=== PATIENT | male | born 1965 | race Caucasian/White ===

== ENCOUNTER 2018-09-04 14:11 | Emergency (ER) | payer SELFPAY ==
[2018-09-04 14:11] VITALS: BP 140/80; PULSE 106; RESP 16; TEMP 36.7; O2SAT 94; BMI 21.3
[2018-09-04] MEDS: Diphth,Pertuss(Acell),Tet Vac 0.5 ML Vial IM (14:45)
--- NOTE | 2018-09-04 15:14 | ED.VIS.GEN ---
History of Present Illness Informant: Patient Onset: Today Context: Sudden Onset Timing: Continuous Quality: Sharp Location: Left upper back Current Severity: Mild Maximum Severity: Mild Worsened by: Palpation Relieved by: Rest Associated Symptoms: Denies Narrative: 52-year-old male presents with laceration to his left upper back that occurred just prior to arrival. He was walking at home and a light bulb fell out of the ceiling while he was walking up the basement steps lacerated his left upper back. Prior similar symptoms: No Recent Illness/Hospitalization: No <Garrison Beth - Last Filed: 09/04/18 15:14> <Billy Louis - Last Filed: 09/04/18 15:27> Chief Complaint: Laceration Past Medical History Prior records reviewed: Yes Past Medical History: None Surgical History: no surgical history Smoking Status: Current every day smoker <Garrison Beth - Last Filed: 09/04/18 15:14> <Billy Louis - Last Filed: 09/04/18 15:27> - Allergies and Home Meds Allergies/Adverse Reactions: Allergies Penicillins Allergy (Verified 09/04/18 14:12) Hives Primary Care Physician: Romie López MD [Primary Care Provider] - Review of Systems All systems negative except as indicated Skin: Reports: Wounds <Garrison Beth - Last Filed: 09/04/18 15:14> Physical Exam Vital Signs/Narrative: Vital Signs Temp Pulse Resp BP Pulse Ox 09/04/18 14:11 98.1 F 106 H 16 140/80 H 94 Inital Vital Signs reviewed: Yes General: Well nourished, Well developed, No Acute Distress Head: Normocephalic, Atraumatic Eyes: Perrl, EOMI ENT: Moist mucous membranes Neck: Supple, Nontender Cardiovascular: Regular rate, Regular rhythm, No murmurs Respiratory: No distress, CTA bilaterally, Chest nontender Back: Nontender, - - 5 cm laceration left upper back lateral to spinal column. Extremities: Nontender, No edema Skin: Normal color, No rash, Trauma Neurological: Alert, Oriented x3 <Garrison Beth - Last Filed: 09/04/18 15:14> Vital Signs/Narrative: Vital Signs Temp Pulse Resp BP Pulse Ox 09/04/18 14:11 98.1 F 106 H 16 140/80 H 94 <Billy Louis - Last Filed: 09/04/18 15:27> Diagnostic/Tx/Re-eval - Medical Decision Making Tetanus was updated. Laceration was anesthetized, thoroughly irrigated cleansed no foreign bodies were seen it was then sutured closed and dressing was placed. We discussed proper wound care and signs of infection to monitor for. Patient will be discharged and advised to follow-up in 7 to 10 days for suture removal. <Garrison Beth - Last Filed: 09/04/18 15:14> - Medical Decision Making Treated patient with our physician physical laboratory assistant EP. Left posterior shoulder laceration caused by a light bulb. Vital signs stable afebrile. Left posterior shoulder there is a 3 to 4 cm laceration is linear. Irrigated clean and explored by our physician physical laboratory assistant. Closed using simple interrupted suture x4. Proper hemostasis wound closure obtained. Impression: Left posterior shoulder laceration with ER repair approximately 5 cm <HeribertoBilly - Last Filed: 09/04/18 15:27> Procedures - Lacerations No standard instances Depth: Skin Shape: Linear Prep: Sterile Conditions, Chlorhexadine Laceration repair: Irrigated, Lidocaine with epi, Local, Wound explored Irrigated (ml): 120 Number of Sutures/[place]: 4 Suture Information: Ethilon, Simple, 4-0 <Garrison Beth - Last Filed: 09/04/18 15:14> ED Disposition <Garrison Beth - Last Filed: 09/04/18 15:14> <HeribertoBilly - Last Filed: 09/04/18 15:27> - Plan for ED Patient: Disposition: Home or Assisted Living Diagnosis: Laceration of back Instructions: LACERATION, Trunk Referrals: Romie López MD [Primary Care Provider] -
== END 2018-09-04 15:38 | disposition home or self-care (01) ==
PROVIDERS: Emergency Provider Emergency Medicine; Family Provider Family Medicine; PCP Family Medicine
DX: S21.212A Laceration without foreign body of left back wall of thorax without penetration into thoracic cavity, initial encounter (principal); W20.8XXA Other cause of strike by thrown, projected or falling object, initial encounter; Y93.01 Activity, walking, marching and hiking; Y92.098 Other place in other non-institutional residence as the place of occurrence of the external cause; Y99.9 Unspecified external cause status; F17.200 Nicotine dependence, unspecified, uncomplicated; Z88.0 Allergy status to penicillin
CPT/HCPCS: 12002; 90471; 90715; 99283

== ENCOUNTER 2018-09-12 08:11 | Emergency (ER) | payer SELFPAY ==
[2018-09-12 08:12] VITALS: BP 126/88; PULSE 99; RESP 16; TEMP 36.2; O2SAT 98; BMI 29.5
--- NOTE | 2018-09-12 08:26 | ED.VISSUMM ---
- ER Visit Summary Date of Service: 09/12/18 Chief Complaint: [Request for suture removal] History of Present Illness: The patient is a 52 M [presents to the emergency department asking to have the sutures removed from a laceration that he sustained about 8 days ago. Patient states that he accidentally brushed with his back against a broken bulb on the ceiling when he was going up some steps and sustained a laceration. Patient was seen in this emergency department and had 4 sutures placed. Patient was told to have sutures removed in 1 week. Patient denies any complaint of bleeding or infection. Patient up-to-date on tetanus which he received during his last visit.] Physical Examination: [HEENT-PERRLA, EOMI. Cranial nerves II through XII grossly intact. TMs clear. Mucous membranes moist. No adenopathy. Cardiovascular-regular rate and rhythm without murmur or ectopy Lungs-clear to auscultation, chest wall stable without crepitus or subcu emphysema Abdomen-normoactive bowel sounds, soft, nontender, no rebound or rigidity, no peritoneal signs. Back exam-patient has a 2.5 cm laceration over the left upper back that appears to be well-healed with 4 single interrupted sutures noted. There is no evidence for dehiscence on exam and there was no evidence of infection or bleeding. Extremities-intact ?4, normal range of motion, normal pulses, atraumatic] Test Results: [None indicated] Emergency Department Course and Treatment: [Patient had sutures removed without difficulty. Upon removal of the more medial of the 4 sutures there was a small area of persistent scab and clot which then had a small area of dehiscence noted of about 5 mm upon removal of the last suture. No significant bleeding noted.] Treatment Plan: [Patient advised to clean the wound gently with soap and water. Patient advised that the dehisced portion will heal by secondary intention. Patient advised to return if increasing pain, redness, swelling, persistent bleeding, or conditions worsen anyway.] Disposition: [Discharged home in stable condition.] Impression: [Suture removal from 2.5 cm back laceration without evidence of infection or bleeding.] This note was generated with [employer] dictation software. It may contain incorrect words, spelling, and punctuation that were not noted in review of the chart prior to signing ED Disposition - Plan for ED Patient: Referrals: Romie López MD [Primary Care Provider] -
--- NOTE | 2018-09-12 08:30 | ED.DEP ---
ED Disposition - Plan for ED Patient: Instructions: SUTURE REMOVAL, No Complication Referrals: Romie López MD [Primary Care Provider] - 5-7 Days
[2018-09-12 08:35] VITALS: BP 126/88; PULSE 99; RESP 18
== END 2018-09-12 08:35 | disposition home or self-care (01) ==
LOC: ED 08:33
PROVIDERS: Emergency Provider Emergency Medicine; Family Provider Family Medicine; PCP Family Medicine
DX: Z48.02 Encounter for removal of sutures (principal); Z72.0 Tobacco use
CPT/HCPCS: 99282

== ENCOUNTER 2019-10-21 18:19 | Emergency (ER) | payer MEDICAID, SELFPAY ==
[2019-10-21 18:20] VITALS: BP 150/101; PULSE 95; RESP 16; TEMP 36.7; O2SAT 98; BMI 21.7
--- NOTE | 2019-10-21 18:32 | ED.VIS.GEN ---
History of Present Illness Chief Complaint: Sore Throat Informant: Patient Onset: Today Maximum Severity: Mild Narrative: Some throat pain after eating a hot sausage from a crockpot The patient was cooking sausage and a crockpot he took a piece of sausage other crockpot it had a high temperature he apparently did not chew it but rather just swallowed it and when he did he felt some pain in his throat this occurred about an hour ago, he has a sense of discomfort to the throat but no stridor or drooling or difficult the speaking, he is able to swallow eat and drink he presents for evaluation he indicates it was just that this was food that was much hotter than he appreciated he was not ill before he has no throat issues there was no history or reason to be concerned for infection as he was perfectly fine before he tried to eat this food Past Medical History - Allergies and Home Meds Allergies/Adverse Reactions: Allergies Penicillins Allergy (Verified 10/21/19 18:24) Hives Primary Care Physician: Romie López MD [Primary Care Provider] - Past Medical History: None Surgical History: no surgical history Smoking Status: Current every day smoker Review of Systems General: Denies: Chills, Fever, Sweats Eyes: Denies: Visual changes - bilaterally, Diplopia ENT: Reports: Sore throat. Denies: Rhinorrhea Cardiovascular: Denies: Chest pain, Palpitations Respiratory: Denies: Dyspnea, Cough, Dyspnea on exertion Gastrointestinal: Denies: Abdominal pain, Nausea, Vomiting, Diarrhea, Melena, Hematochezia Genitourinary: Denies: Dysuria, Hematuria, Frequency Musculoskeletal: Denies: Back pain, Extremity Pain Skin: Denies: Rash, Wounds Neurological: Denies: Headache, Weakness, Numbness Physical Exam Vital Signs/Narrative: Vital Signs Temp Pulse Resp BP Pulse Ox 10/21/19 18:20 98.1 F 95 16 150/101 H 98 General: Well nourished, Well developed, No Acute Distress Head: Normocephalic, Atraumatic Eyes: Perrl, EOMI ENT: Moist mucous membranes, No rhinorrhea, - - His uvula is slightly edematous but his airway is completely intact there is no blistering no signs of burn his tongue mucosal tissue unremarkable speech is normal neck is supple the rest of his exam is entirely unremarkable he is in no distress vital signs are normal Neck: Supple, Nontender Cardiovascular: Regular rate, Regular rhythm, No murmurs Respiratory: No distress, CTA bilaterally, Chest nontender Abdomen: Soft, Nontender, Nondistended, Normal bowel sounds Back: Nontender, Normal Inspection Extremities: Nontender, No edema Skin: Normal color, No rash Neurological: Alert, Oriented x3, Cranial nerves II-XII grossly intact, Normal Strength, Normal Sensation Psychological: Normal affect, Normal Mood Diagnostic/Tx/Re-eval - Medical Decision Making Occurred about an hour ago we observe the patient he was given viscous lidocaine to swish and gargle he is feeling better at this time will be discharged home to continue cold liquids ice cream soft foods and follow-up with his physicians the next few days Final impression throat discomfort after eating hot food uvular edema mild Home stable ED Disposition - Plan for ED Patient: Diagnosis: Uvular edema Instructions: ED Uvulitis Referrals: Romie López MD [Primary Care Provider] - Additional Instructions: Avoid hot food, ice ice cream cold liquids return for change in symptoms
== END 2019-10-21 19:00 | disposition home or self-care (01) ==
LOC: ED 18:54
PROVIDERS: Emergency Provider Emergency Medicine; PCP Family Medicine
DX: K12.2 Cellulitis and abscess of mouth (principal); F17.200 Nicotine dependence, unspecified, uncomplicated; Z88.0 Allergy status to penicillin
CPT/HCPCS: 99283

== ENCOUNTER 2019-10-21 22:45 | Emergency (ER) | payer MEDICAID, SELFPAY ==
[2019-10-21 18:20] VITALS: BMI 21.7
[2019-10-21 22:46] VITALS: BP 159/102; PULSE 109; RESP 18; TEMP 36.3; O2SAT 97; BMI 21.5
--- NOTE | 2019-10-21 23:09 | RAD_ITS ---
HISTORY: Swallowed hot food which caused pain to throat. Vomiting and cough. COMPARISON: None TECHNIQUE: AP and lateral soft tissue neck radiographs Number of images including paperwork: 2 FINDINGS: EPIGLOTTIS AND ARYEPIGLOTTIC FOLDS: Unremarkable. AIRWAY: Unremarkable. PREVERTEBRAL SOFT TISSUES: No significant prevertebral soft tissue thickening. No distinct foreign body. BONES: No acute skeletal abnormality. RAD/Neck for Soft Tissue IMPRESSION: No acute findings. at 2355 Reported and signed by: Yesenia Peralta MD Electronically Signed: Yesenia Peralta MD at 23:55 EDT Tel , Service support ,
[2019-10-21] MEDS: Glucagon 1 MG/ML Syringe IV (23:22)
[2019-10-21 23:26] LABS: Absolute Lymphocyte Count 1.68 X10^3/uL (0.83-4.51); Absolute Neutrophil Count 15.7 X10^3/uL (2.0-7.7); Basophil# 0.06 X10^3/uL; Basophil% 0.3 % (0-1); Eosinophil# 0.11 X10^3/uL; Eosinophils% 0.6 % (0-5); Hematocrit 50.8 % (40-54); Hemoglobin 16.7 g/dL (13.0-16.5); Lymphocyte # 1.68 X10^3/ul (4.0); Mean Corp Hgb Conc 32.9 g/dL (32-36); Mean Corpuscular Hgb 30.3 pg (27.0-32.0); Mean Corpuscular Volume 92.2 fL (80-94); Mean Platelet Vol. 9.3 fl (6.2-12.0); Monocyte# 1.09 X10^3/uL; Monocyte% 5.8 % (0-10); NRBC Flagged by Analyzer 0 % (0-5); Neutrophil # 15.73 X10^3/uL (2.7-7.7); Neutrophil % 83.8 % (47-70); Platelet Count 299 K/mm3 (150-450); RBC Distribution Width CV 13.2 % (11.6-14.6); RBC Distribution Width SD 44.5 fl (35.1-43.9); Red Blood Count 5.51 M/mm3 (4.6-6.2); White Blood Count 18.8 K/mm3 (4.4-11.0)
[2019-10-21 23:49] LABS: Anion Gap 9 (5-15); BUN 11 mg/dL (7-18); BUN/Creat Ratio 10.8 RATIO (10-20); Calcium,Total 8.9 mg/dL (8.5-10.1); Chloride 107 mmol/L (98-107); Creatinine, Serum 1.02 mg/dL (0.70-1.30); EST Glomerular Filtration Rate 81 mL/min (>60); Est Glom Filt Rate - Afr Amer 98 mL/min (>60); Estimated Creatinine Clearance 81.97 ml/min; Glucose 117 mg/dL (74-106); Potassium 4.6 mmol/L (3.5-5.1); Sodium Level 140 mmol/L (136-145)
[2019-10-22] MEDS: Ondansetron 4 MG/2 ML Vial IV
[2019-10-22 01:20] VITALS: BP 140/71; PULSE 107; RESP 18; O2SAT 100
--- NOTE | 2019-10-22 01:42 | ED.VISSUMM ---
- ER Visit Summary Date of Service: 10/22/19 Chief Complaint: Sore throat History of Present Illness: The patient is a 54 M who presents with a sore throat that began earlier today. Patient states he ate some pot roast including some sausage when it was very hot. Patient was seen here earlier today and was given viscous lidocaine. Patient states that helped with his pain for a while but it wore off and his pain is worse. Patient admits to some nausea and vomiting. Patient states he is able to swallow some sips of water. Patient states he is unable to eat anything. Patient states the pain is worse with swallowing and eating. Patient describes as a choking sensation. Patient states his throat feels very raw. Physical Examination: Vital signs are stable. Patient is afebrile. Patient is in no acute distress. Oral mucosa is pink and moist. Oropharynx does not show any erythema or exudates. There is mild edema. Airway is patent. Neck is supple. Trachea is midline. There is no JVD. Heart was regular rate and rhythm. Lungs are clear and equal bilaterally. Abdomen is soft. Bowel sounds are normal. There is no tenderness. Cranial nerves II through XII are intact. There are no focal motor or sensory deficits noted. Test Results: Soft tissue x-rays of the neck were obtained. There is no acute abnormality. These were interpreted by the radiologist and reviewed by myself. CBC shows a leukocytosis of 18.8. Hemoglobin was 16.7. Basic metabolic profile was essentially within normal limits. Emergency Department Course and Treatment: Patient was given a dose of glucagon IV here. Patient had no improvement with this. Patient became more nauseated. Patient was given a dose of Zofran. Patient was able to swallow water. Patient was unable to swallow any crackers. Case was discussed with Dr. Shepard who is on-call for general surgery. She states she does not do these. Case was discussed with Dr. Alexander. He recommended doing a CT scan of the chest. This showed soft tissue edema around the proximal esophagus. There is no food impaction noted. Dr. Alexander recommended outpatient follow-up. He also recommended giving the patient Carafate. Patient was given a prescription for Carafate. Patient was instructed to follow-up with Dr. Alexander in 3 to 5 days. Patient understood and was agreeable with the plan. All questions were answered. Disposition: Discharge home Impression: 1. Esophageal edema This note was generated with [employer] dictation software. It may contain incorrect words, spelling, and punctuation that were not noted in review of the chart prior to signing ED Disposition - Plan for ED Patient: Disposition: Home or Assisted Living Diagnosis: Esophageal edema Prescriptions: Sucralfate [Carafate] 1 gm PO 4X/DAY #20 udc Prescription Printed Referrals: Carlos Alexander MD [STAFF PHYSICIAN] - 3-5 Days Romie López MD [Primary Care Provider] - 5-7 Days
--- NOTE | 2019-10-22 02:22 | CT_ITS ---
HISTORY: DYSPHAGIS/VOMITING. Had soft tissue neck rad earlier. Ate hot food earlier today TECHNIQUE: Helically acquired images of the chest were obtained without IV contrast. Number of images including paperwork: 1661. A radiation dose optimization technique was used for this scan. COMPARISON: None FINDINGS: Motion artifact limits evaluation. VASCULATURE: Unremarkable as imaged. HEART/PERICARDIUM: Unremarkable. MEDIASTINUM: Soft tissue edema noted around the proximal esophagus. Small hiatal hernia. ADENOPATHY: No pathologic appearing adenopathy. THYROID: Unremarkable visualized portions. LUNG PARENCHYMA: No consolidation or mass. Dependent atelectasis. PLEURAL SPACES: Unremarkable. UPPER ABDOMEN: Unremarkable. OSSEOUS AND SOFT TISSUE STRUCTURES: No acute skeletal findings. DEVICES: None. CT/Chest without Contrast IMPRESSION: Soft tissue edema around the proximal esophagus. Individualized dose optimization techniques were used for this CT. at 0319 Reported and signed by: Yesenia Peralta MD Electronically Signed: Yesenia Peralta MD at 3:19 EDT Tel , Service support ,
--- NOTE | 2019-10-22 02:30 | ED.RN ---
pt unable to eat cracker. reports he is spitting the food and water back up and that it hurts to swallow. dr. mcguire informed.
[2019-10-22 03:10] VITALS: BP 135/79; PULSE 104; RESP 20; O2SAT 98
[2019-10-22] MEDS: Sucralfate 1 GM Tablet PO (04:31)
[2019-10-22] MEDS: Morphine 4 MG/ML Syringe IV (04:31)
[2019-10-22 04:34] VITALS: BP 136/87; PULSE 110; RESP 18; O2SAT 97
== END 2019-10-22 04:42 | disposition home or self-care (01) ==
PROVIDERS: Emergency Provider Emergency Medicine; PCP Family Medicine
DX: R60.9 Edema, unspecified (principal); R11.2 Nausea with vomiting, unspecified; J02.9 Acute pharyngitis, unspecified
CPT/HCPCS: 70360; 71250; 80048; 85025; 96374; 96375; 99283; 99284; A4216; J1610; J2405

== ENCOUNTER 2020-07-04 10:21 | Emergency (ER) | payer MEDICAID, SELFPAY ==
[2019-10-25 09:44] VITALS: BMI 21.5
[2020-07-04 10:21] VITALS: BP 169/106; PULSE 86; RESP 15; TEMP 36.6; O2SAT 96; BMI 21.7
--- NOTE | 2020-07-04 10:52 | ED.VIS.GI ---
HPI HPI - GI History of Present Illness Chief Complaint: Constipation Narrative Narrative: Patient reports he has abdominal pain that began yesterday. He describes it as a fullness that is 7 out of 10 at worst and is pain-free currently. Is worsened by straining to have a bowel movement. Is relieved by nothing. Reports that he has had hard stools for 3 to 4 days and has not had a bowel movement for 2 days. Typically goes daily. He denies any change in diet or medications. States the only thing that is different is that he had a Pfizer vaccine 2 weeks ago. Patient denies any nausea or vomiting. No fever or chills. Is never had anything like this before. He has never had abdominal surgery. PFSH PFSH Home Medications sucralfate 1 gm PO 4X/DAY #20 udc 10/22/19 [Rx Last Taken Unknown] magnesium citrate 300 ml PO DAILY PRN #1 bottle 07/04/20 [Rx Last Taken Unknown] Allergy/AdvReac Type Severity Reaction Status Date / Time Penicillins Allergy Hives Verified 07/04/20 10:23 Family History Father Heart disease Diabetes Mother Diabetes Surgical History No history of previous surgery Social History Smoking Status: Current every day smoker tobacco type: cigarettes alcohol intake: current substance use type: does not use ROS ROS ED Constitutional Constitutional ED: Denies chills, fever(s) or sweats Eyes Eyes: Denies change in vision ENT ENT ED: Denies sore throat Cardiovascular Cardiovascular: Denies chest pain Respiratory/Chest Respiratory/Chest: Denies cough, dyspnea or dyspnea on exertion Gastrointestinal Gastrointestinal: Reports abdominal pain and constipation; Denies diarrhea, melena, nausea or vomiting Genitourinary Genitourinary ED: Denies dysuria or urinary frequency Musculoskeletal Musculoskeletal: Denies myalgias Integumentary Denies rash Neurologic Neurologic: Denies headache(s), paresthesias or weakness EXAM Physical Exam Const Vital Signs: 07/04/20 10:21 Temperature 97.8 F Temperature Source Temporal Pulse Rate 86 Respiratory Rate 15 Blood Pressure 169/106 H Blood Pressure Mean 127 Pulse Ox 96 Oxygen Delivery Method Room Air Positive well nourished and well developed General Appearance ED: well developed HEENT Reports normocephalic and head/scalp atraumatic Eyes PERRL Neck no lymphadenopathy, supple and no JVD General: Negative for tenderness Resp normal respiratory effort and clear to auscultation bilaterally Cardio regular rate, regular rhythm and no murmurs GI normal to inspection, nondistended, normoactive bowel sounds and non-tender GI Narrative: No guarding, rebound, or peritoneal signs. Palpation: soft Back/Spine Back/Spine Narrative: Nontender. Extremity General Extremety ED: Negative for edema or tenderness General Extremity: Negative for edema Neuro oriented x3, CN's II-XII intact bilaterally and no sensory deficits noted Sensorium / Orientation: alert Motor Exam: strength 5/5 throughout Psych mental status grossly normal Skin no rashes or lesions noted MDM MDM Lab Data Labs: Laboratory Results - last 24 hr 07/04/20 07/04/20 10:40 10:40 WBC 6.7 RBC 5.68 Hgb 17.3 H Hct 51.5 MCV 90.7 MCH 30.5 MCHC 33.6 RDW Std Deviation 45.2 H RDW Coeff of Chidi 13.5 Plt Count 335 MPV 9.0 Immature Gran % (Auto) 0.600 Neut % (Auto) 52.4 Lymph % (Auto) 34.1 Mora % (Auto) 9.8 Eos % (Auto) 2.7 Baso % (Auto) 0.4 Absolute Neuts (auto) 3.5 Absolute Lymphs (auto) 2.29 Nucleated RBC % 0 Sodium 140 Potassium 3.8 Chloride 107 Carbon Dioxide 26.0 Anion Gap 7 BUN 10 Creatinine 0.85 Estim Creat Clear Calc 99.43 Est GFR (MDRD) Af Amer 120 Est GFR (MDRD) Non-Af 99 BUN/Creatinine Ratio 11.7 Glucose 105 Calcium 9.1 Total Bilirubin 0.50 AST 16 ALT 29 Alkaline Phosphatase 87 Total Protein 7.9 Albumin 4.1 Globulin 3.8 Albumin/Globulin Ratio 1.1 Radiography Diagnostic Testing: Radiology Impression Acute Abdomen Series 07/04/20 11:00 IMPRESSION: Large amount of fecal material seen:. Electronically Signed: Sean Garcia MD at 11:52 EDT , Service support , 3 view abdominal x-ray shows nonspecific bowel gas pattern. I do not appreciate any stool in the rectum. Treatment and Re-Evaluation Comments:: Emergency department course: Patient had an IV placed. Is given liter normal saline. He is resting comfortably. Treatment plan: Patient will be discharged with magnesium citrate. Instructed to follow-up his primary care physician in 1 to 2 days if not improving. Return to the emergency department for any worsening symptoms. Disposition: To home in improved and stable condition. This note was generated with [employer] dictation software. It may contain incorrect words, spelling, and punctuation that were not noted in review of the chart prior to signing. Discharge Plan Triage Chief Complaint: Constipation ED Provider: Gus Limon Dx/Rx/DC Orders Clinical Impression: Constipation Instructions: ED Constipation (Adult) Prescriptions: New magnesium citrate Solution 300 ml PO DAILY PRN (Reason: constipation) Qty: 1 RF: 0 No Action sucralfate 1 GM/10 ML suspension 1 gm PO 4X/DAY Qty: 20 RF: 0 Primary Care Provider: Romie López Referrals: Romie López MD [Primary Care Provider] - 1-2 Days if not improving Disposition Disposition: Home, self care Discharge Date/Time: 07/04/20 12:32
[2020-07-04 10:53] LABS: Absolute Lymphocyte Count 2.29 X10^3/uL (0.83-4.51); Absolute Neutrophil Count 3.5 X10^3/uL (2.0-7.7); Basophil# 0.03 X10^3/uL; Basophil% 0.4 % (0-1); Eosinophil# 0.18 X10^3/uL; Eosinophils% 2.7 % (0-5); Hematocrit 51.5 % (40-54); Hemoglobin 17.3 g/dL (13.0-16.5); Lymphocyte # 2.29 X10^3/ul (0.83-4.51); Lymphocyte % 34.1 % (19-41); Mean Corp Hgb Conc 33.6 g/dL (32-36); Mean Corpuscular Hgb 30.5 pg (27.0-32.0); Mean Corpuscular Volume 90.7 fL (80-94); Monocyte# 0.66 X10^3/uL; Monocyte% 9.8 % (0-10); NRBC Flagged by Analyzer 0 % (0-5); Neutrophil # 3.51 X10^3/uL (2.7-7.7); Neutrophil % 52.4 % (47-70); Platelet Count 335 K/mm3 (150-450); RBC Distribution Width CV 13.5 % (11.6-14.6); RBC Distribution Width SD 45.2 fl (35.1-43.9); Red Blood Count 5.68 M/mm3 (4.6-6.2); White Blood Count 6.7 K/mm3 (4.4-11.0)
[2020-07-04] MEDS: 0.9% Normal Saline 1,000 ML 1000 ML IV (11:00)
--- NOTE | 2020-07-04 11:00 | RAD_ITS ---
STUDY: X-RAY - ACUTE ABDOMINAL SERIES REASON FOR EXAM: Male, 54 years old. Constipation. TECHNIQUE: Single view of the chest. Supine, and erect view(s) of the abdomen were obtained. COMPARISON: None. FINDINGS: Hyperinflation. The lungs are clear. Normal size heart. Normal mediastinum and rubin. Normal visualized pulmonary arteries. Normal visualized aortic arch and descending thoracic aorta. There is an abundance of fecal material throughout the colon. There are multiple calcified phleboliths. Prostatic calcifications. Levoscoliosis. RAD/Acute Abdomen Inc Chest IMPRESSION: Large amount of fecal material seen:. Electronically Signed: Sean Garcia MD at 11:52 EDT , Service support ,
[2020-07-04 11:10] LABS: ALB/GLOB Ratio 1.1 RATIO (0.9-2.4); AST(SGOT) 16 U/L (15-37); Alanine Aminotransfer ALT/SGPT 29 U/L (16-61); Albumin, Serum 4.1 g/dL (3.2-5.0); Alkaline Phosphatase 87 U/L (45-117); Anion Gap 7 (5-15); BUN 10 mg/dL (7-18); BUN/Creat Ratio 11.7 RATIO (10-20); Calcium,Total 9.1 mg/dL (8.5-10.1); Chloride 107 mmol/L (98-107); Creatinine, Serum 0.85 mg/dL (0.70-1.30); EST Glomerular Filtration Rate 99 mL/min (>60); Est Glom Filt Rate - Afr Amer 120 mL/min (>60); Estimated Creatinine Clearance 99.43 ml/min; Globulin 3.8 g/dL (2.2-4.2); Glucose 105 mg/dL (74-106); Potassium 3.8 mmol/L (3.5-5.1); Protein, Total 7.9 g/dL (6.4-8.2); Sodium Level 140 mmol/L (136-145)
--- NOTE | 2020-07-04 11:34 | ED.RN ---
pt reports lifting lots of heavy appliances last week and noticed bowels being incomplete and not being able to go but with cramping and pressure
== END 2020-07-04 12:32 | disposition home or self-care (01) ==
PROVIDERS: Emergency Provider Emergency Medicine; PCP Family Medicine
DX: K59.00 Constipation, unspecified (principal); F17.210 Nicotine dependence, cigarettes, uncomplicated
CPT/HCPCS: 74022; 80053; 85025; 96360; 99285; J7030

== ENCOUNTER 2021-07-05 01:14 | Emergency (ER) | payer MEDICAID, SELFPAY ==
[2021-07-05 01:15] VITALS: BP 151/96; PULSE 97; RESP 18; TEMP 36.6; O2SAT 98; BMI 23.1
--- NOTE | 2021-07-05 01:29 | ED.VIS.GI ---
HPI HPI - GI History of Present Illness Chief Complaint: Nausea/Vomiting Informant: patient Abdominal Pain/Flank Pain Onset: Hours (18 or so) Context: Gradual Onset Timing: Intermittent Quality: - (pressing pain) Location: - (periumbilical) Current Severity: Mild Maximum Severity: Moderate Worsened by: - (nothing, seems random) Nausea/Vomiting/Emesis GI Symptom: Positive for Nausea and Vomiting Onset: Today Quality: Positive for Nonbilious and Blood streaks; Negative for Coffee ground Severity: Mild Diarrhea/Melena/Hematochezia GI Symptom: Positive for Diarrhea Onset: Today Stool Quality: Positive for Watery Episodes: 2 Associated Symptoms Associated Symptoms: Negative for Dysuria, Frequency, Hematuria and Urgency Narrative Narrative: Patient presenting with less than 1 day of malaise, nausea, vomiting, some watery diarrhea, intermittent periumbilical abdominal pain, no fevers or chills. States he has been feeling dehydrated. Poor appetite today. No thoracic symptoms, coughing or chest pain or shortness of breath. No rashes or leg swelling. Urinating normally. States when he vomited there was some red streaks and he had eaten fresh food. No known sick contacts. No recent travel out of the area, no recent antibiotics for anything. Healthy, recently diagnosed with hypertension and given a prescription that he has not yet started and takes no other medications. [facility] Medical History HTN (hypertension) Home Medications dicyclomine 20 mg PO Q6H PRN PRN #20 capsule 07/05/21 [Rx Last Taken Unknown] lisinopril 5 mg PO DAILY 07/05/21 [History Last Taken Unknown] ondansetron 8 mg PO Q8H PRN PRN #20 tab 07/05/21 [Rx Last Taken Unknown] pantoprazole [Protonix] 40 mg PO DAILY #14 tab 07/05/21 [Rx Last Taken Unknown] Allergy/AdvReac Type Severity Reaction Status Date / Time Penicillins Allergy Hives Verified 07/05/21 01:19 Family History Father Heart disease Diabetes Mother Diabetes Surgical History No history of previous surgery Surgical History no surgical history no surgical history Social History Smoking Status: Current every day smoker tobacco type: cigarettes alcohol intake: current substance use type: does not use ROS ROS ED Constitutional Constitutional ED: Reports malaise; Denies chills or fever(s) Eyes Eyes: Denies change in vision or diplopia ENT ENT ED: Denies rhinorrhea or sore throat Cardiovascular Cardiovascular: Denies chest pain or palpitations Respiratory/Chest Respiratory/Chest: Denies cough or dyspnea Gastrointestinal Gastrointestinal: Reports as per HPI, abdominal pain, diarrhea, hematemesis, nausea and vomiting Genitourinary Genitourinary ED: Denies dysuria or hematuria Musculoskeletal Musculoskeletal: Denies back pain or neck pain Integumentary Denies abscess or rash Neurologic Neurologic: Denies headache(s), paresthesias or weakness Psychiatric Psychiatric: Denies anxiety or suicidal thoughts EXAM Physical Exam Const Vital Signs: 07/05/21 01:15 Temperature 97.8 F Temperature Source Oral Pulse Rate 97 Respiratory Rate 18 Blood Pressure 151/96 H Blood Pressure Mean 114 Pulse Ox 98 Oxygen Delivery Method Room Air Positive well nourished and well developed Constitutional Narrative: Well-appearing in no distress General Appearance ED: well developed and NAD HEENT Reports moist mucous membranes normocephalic and atraumatic Eyes PERRL and EOMs intact bilaterally Neck full ROM and supple Resp normal respiratory effort and clear to auscultation bilaterally Effort and Inspection: able to speak in complete sentences Cardio regular rate, regular rhythm and no murmurs Rate: Negative for tachycardic GI non-distended GI Narrative: Mild epigastric tenderness only. No palpable hernias. Auscultation: hyperactive bowel sounds Palpation: soft Back/Spine no CVA tenderness General Back: other FROM Extremity normal to inspection General Extremety ED: Negative for edema, pulses abnormal or tenderness General Extremity: Negative for edema or pulses abnormal Neuro oriented x3, CN's II-XII intact bilaterally, no sensory deficits noted and gait normal Sensorium / Orientation: awake and alert Motor Exam: strength 5/5 throughout Skin no rashes or lesions noted and no wounds MDM MDM MDM Narrative Medical decision making narrative: Patient is a mild nonspecific leukocytosis, prerenal azotemia consistent with mild dehydration, the rest of his labs are unremarkable. After IV fluids, Protonix, Reglan, and dicyclomine he is feeling much better. I do not think he needs imaging of his abdomen right now, he was only tender in the epigastrium, I do not suspect this is biliary colic, I think it is more likely to be viral gastroenteritis, and I think at this time supportive care is advised along with prescriptions for dicyclomine, Protonix, and Zofran would be reasonable. Close a patient follow-up if symptoms persist longer than a couple days, we discussed reasons to return and he is comfortable with that plan. Lab Data Attestation: I reviewed the patient's lab results. Labs: Laboratory Results - last 24 hr 07/05/21 07/05/21 01:35 01:35 WBC 13.6 H RBC 5.56 Hgb 17.1 H Hct 49.9 MCV 89.7 MCH 30.8 MCHC 34.3 RDW Std Deviation 44.4 H RDW Coeff of Chidi 13.4 Plt Count 287 MPV 9.4 Immature Gran % (Auto) 0.400 Neut % (Auto) 74.6 H Lymph % (Auto) 15.0 L [place] % (Auto) 7.9 Eos % (Auto) 1.8 Baso % (Auto) 0.3 Absolute Neuts (auto) 10.2 H Absolute Lymphs (auto) 2.04 Nucleated RBC % 0 Sodium 139 Potassium 3.9 Chloride 106 Carbon Dioxide 28.0 Anion Gap 5 BUN 24 H Creatinine 0.94 Estim Creat Clear Calc 94.57 Est GFR (MDRD) Af Amer 106 Est GFR (MDRD) Non-Af 88 BUN/Creatinine Ratio 25.4 H Glucose 135 H Calcium 8.9 Total Bilirubin 0.50 AST 16 ALT 29 Alkaline Phosphatase 88 Total Protein 7.1 Albumin 3.7 Globulin 3.4 Albumin/Globulin Ratio 1.1 Lipase 122 Discharge Plan Triage Chief Complaint: Nausea/Vomiting ED Provider: Jas Vergara Dx/Rx/DC Orders Clinical Impression: Gastroenteritis, Acute gastritis with bleeding Instructions: ED PEPTIC ULCER vs GASTRITIS, Viral Gastroenteritis Prescriptions: New pantoprazole [Protonix] 40 mg tablet,delayed release (DR/EC) 40 mg PO DAILY Qty: 14 RF: 0 ondansetron [ondansetron] 4 MG tablet 8 mg PO Q8H PRN PRN (Reason: Nausea) Qty: 20 RF: 0 dicyclomine 10 MG capsule 20 mg PO Q6H PRN PRN (Reason: abdominal discomfort) Qty: 20 RF: 0 Continued lisinopril 5 mg tablet 5 mg PO DAILY RF: 0 Stand Alone Forms: ED Work / School Excuse Primary Care Provider: Romie López Referrals: Romie López MD [Primary Care Provider] - 3-5 Days if not improving Disposition Disposition: Home, Self Care
[2021-07-05] MEDS: 0.9% Normal Saline 1,000 ML 999 ML IV (01:38)
[2021-07-05] MEDS: Metoclopramide 10 MG/2 ML Vial 5 MG IV (01:41)
[2021-07-05] MEDS: Pantoprazole Sodium 40 MG Tablet PO (01:42)
[2021-07-05] MEDS: Dicyclomine 10 MG Capsule 20 MG PO (01:42)
[2021-07-05 01:44] LABS: Absolute Lymphocyte Count 2.04 X10^3/uL (0.83-4.51); Absolute Neutrophil Count 10.2 X10^3/uL (2.0-7.7); Basophil# 0.04 X10^3/uL; Basophil% 0.3 % (0-1); Eosinophil# 0.25 X10^3/uL; Eosinophils% 1.8 % (0-5); Hematocrit 49.9 % (40-54); Hemoglobin 17.1 g/dL (13.0-16.5); Lymphocyte # 2.04 X10^3/ul (0.83-4.51); Mean Corp Hgb Conc 34.3 g/dL (32-36); Mean Corpuscular Hgb 30.8 pg (27.0-32.0); Mean Corpuscular Volume 89.7 fL (80-94); Mean Platelet Vol. 9.4 fl (6.2-12.0); Monocyte# 1.07 X10^3/uL; Monocyte% 7.9 % (0-10); NRBC Flagged by Analyzer 0 % (0-5); Neutrophil # 10.15 X10^3/uL (2.7-7.7); Neutrophil % 74.6 % (47-70); Platelet Count 287 K/mm3 (150-450); RBC Distribution Width CV 13.4 % (11.6-14.6); RBC Distribution Width SD 44.4 fl (35.1-43.9); Red Blood Count 5.56 M/mm3 (4.6-6.2); White Blood Count 13.6 K/mm3 (4.4-11.0)
[2021-07-05 01:59] LABS: ALB/GLOB Ratio 1.1 RATIO (0.9-2.4); AST(SGOT) 16 U/L (15-37); Alanine Aminotransfer ALT/SGPT 29 U/L (16-61); Albumin, Serum 3.7 g/dL (3.2-5.0); Alkaline Phosphatase 88 U/L (45-117); Anion Gap 5 (5-15); BUN 24 mg/dL (7-18); BUN/Creat Ratio 25.4 RATIO (10-20); Calcium,Total 8.9 mg/dL (8.5-10.1); Chloride 106 mmol/L (98-107); Creatinine, Serum 0.94 mg/dL (0.70-1.30); EST Glomerular Filtration Rate 88 mL/min (>60); Est Glom Filt Rate - Afr Amer 106 mL/min (>60); Estimated Creatinine Clearance 94.57 ml/min; Globulin 3.4 g/dL (2.2-4.2); Glucose 135 mg/dL (74-106); Lipase 122 U/L (73-393); Potassium 3.9 mmol/L (3.5-5.1); Protein, Total 7.1 g/dL (6.4-8.2); Sodium Level 139 mmol/L (136-145)
[2021-07-05 02:32] VITALS: BP 144/74; PULSE 80; RESP 18; O2SAT 98
== END 2021-07-05 02:33 | disposition home or self-care (01) ==
PROVIDERS: Emergency Provider Emergency Medicine; PCP Family Medicine; Visit Provider Emergency Medicine
DX: K52.9 Noninfective gastroenteritis and colitis, unspecified (principal); K29.01 Acute gastritis with bleeding; I10 Essential (primary) hypertension; F17.210 Nicotine dependence, cigarettes, uncomplicated
CPT/HCPCS: 80053; 83690; 85025; 96361; 96374; 99284; J7030; A4216

== ENCOUNTER 2022-03-05 03:58 | Observation (INO) | payer MEDICAID, SELFPAY ==
[2022-03-05] VITALS (10 sets, daily range): BP systolic 137–187; BP diastolic 97–110; PULSE 73–90; RESP 13–17; TEMP 36.4–36.7; O2SAT 95–98; BMI 23.1; BMI 22.4
--- NOTE | 2022-03-05 03:59 | RAD_ITS ---
EXAM: XR CHEST, 1 VIEW CLINICAL INDICATION: chest pain TECHNIQUE: Frontal view of the chest. This report was created using [employer] report generation technology. COMPARISON: 07/04/2020 FINDINGS: LUNGS AND PLEURAL SPACES: Unremarkable. No consolidation or edema. No pneumothorax. No effusion. HEART: Unremarkable. Cardiac silhouette not enlarged. MEDIASTINUM: Central airways and mediastinal contour are unremarkable. BONES/JOINTS: Unremarkable. SOFT TISSUES: Unremarkable. RAD/Chest 1 View (Portable) IMPRESSION: No radiographic evidence of acute cardiopulmonary disease. Electronically Signed: Prabhakar Robertson MD at 4:47 EST ,
--- NOTE | 2022-03-05 04:00 | ED.VIS.CHEST ---
HPI History of Present Illness Chief Complaint: Chest Pain Informant: patient Onset/Context/Timing Onset: Hours (3) Activity at onset: gradual, onset, activity on onset and rest Timing: Continuous Quality: Positive for Tightness Location: Substernal Current Severity: Moderate Maximum Severity: Moderate Worsened By: Nothing; Not Worsened By Breathing Relieved By: Nothing Associated Symptoms: Positive for Dyspnea; Negative for Nausea, Vomiting, Diaphoresis, Fever, Lightheadedness or Palpitations Narrative Narrative: 56-year-old male, smoker but without medical problems until recently when his PCP diagnosed him with hypertension and hyperlipidemia, he started him on hypertension medication that he just got filled today and has not even started it yet, started having chest discomfort with tingling/numbness down his left upper extremity several hours prior to arrival has not gone away has been continuous since it started. Mild dyspnea. No near-syncope or syncope or palpitations. No diaphoresis. Never had any heart problems in the past, no history of a stress test. Family history of heart problems but not at ages 55 or younger that he knows of. He denies any weakness in his arm, just numbness/tingling. Denies any tingling elsewhere in his body. No headache or vision changes. No trouble ambulating or speaking. Prior Similar Symptoms: No CVD Risk Factors: Positive for Hypertension, Hypercholesterolemia and Smoking; Negative for Diabetes or Family History 1' </=55 PFSH PFSH Medical History HLD (hyperlipidemia) HTN (hypertension) Internal hemorrhoid, bleeding Tobacco use Home Medications amlodipine 5 mg tablet 5 mg PO DAILY 03/05/22 [History Last Taken Unknown] bupropion HCl 150 mg 24 hr tablet, extended release 150 mg PO DAILY 03/05/22 [History Last Taken Unknown] Allergy/AdvReac Type Severity Reaction Status Date / Time Penicillins Allergy Hives Verified 03/05/22 04:00 Family History (Updated 11/24/21 @ 13:04 by Guera Espinoza) Father Heart disease Diabetes Emphysema lung Mother Diabetes Uncle Colon cancer Surgical History (Updated 03/05/22 @ 04:[address] Maria Mathews MD) History of colonoscopy No history of previous surgery Social History (Updated 03/05/22 @ 04:[address] Maria Mathews MD) household members: significant other Smoking Status: Current every day smoker tobacco type: cigarettes Smoking packs per day: 1 Smoking cigarettes per day: 20.0 Years smoked: 31 Smoking pack-years: 31.00 alcohol intake: current substance use type: does not use ROS ROS ED Constitutional Constitutional ED: Denies chills or fever(s) Eyes Eyes: Denies change in vision or diplopia ENT ENT ED: Denies rhinorrhea or sore throat Cardiovascular Cardiovascular: Reports chest pain; Denies palpitations Respiratory/Chest Respiratory/Chest: Reports dyspnea; Denies cough Gastrointestinal Gastrointestinal: Denies abdominal pain, diarrhea, nausea or vomiting Genitourinary Genitourinary ED: Denies dysuria or hematuria Musculoskeletal Musculoskeletal: Denies back pain or neck pain Integumentary Denies abscess or rash Neurologic Neurologic: Reports paresthesias; Denies headache(s) or weakness Psychiatric Psychiatric: Denies anxiety or suicidal thoughts EXAM Physical Exam Const Vital Signs: 03/05/22 04:01 03/05/22 03:59 03/05/22 04:04 Temperature 97.7 F L Temperature Source Temporal Pulse Rate 90 Respiratory Rate 17 Respiratory Effort Normal Blood Pressure 187/110 H Blood Pressure Mean 135 Pulse Ox 98 98 Oxygen Delivery Method Room Air Nasal Cannula 03/05/22 04:17 Temperature Temperature Source Pulse Rate 84 Respiratory Rate Respiratory Effort Blood Pressure 157/101 H Blood Pressure Mean Pulse Ox Oxygen Delivery Method Positive well nourished and well developed General Appearance ED: well developed and NAD HEENT Reports moist mucous membranes normocephalic and atraumatic Eyes PERRL and EOMs intact bilaterally Neck full ROM and supple Chest Wall inspection of chest normal and palpation of chest normal Resp normal respiratory effort and clear to auscultation bilaterally Cardio regular rate, regular rhythm and no murmurs Rate: Negative for tachycardic GI non-tender and non-distended Auscultation: normoactive bowel sounds Palpation: soft Back/Spine no CVA tenderness General Back: other FROM Extremity normal to inspection and no calf tenderness General Extremety ED: Negative for edema, pulses abnormal or tenderness General Extremity: Negative for edema or pulses abnormal Neuro oriented x3, CN's II-XII intact bilaterally, no sensory deficits noted and gait normal Sensorium / Orientation: awake and alert Motor Exam: strength 5/5 throughout Psych mental status grossly normal Skin no rashes or lesions noted and no wounds Heart Score History: Highly Suspicious ECG: Nonspecific Repolarization Age: >45 - <65 years Risk Factors: >/= 3 Risk Factors or History of CAD Troponin: </= Normal Limit Score: 6 MDM MDM MDM Narrative Medical decision making narrative: The patient's symptoms are concerning especially in context of a blood pressure 187/110, and hyperlipidemia that has not yet been treated (according to the patient), and being a longtime smoker. Additionally concerning is his EKG showing a left bundle branch block. There is no record of an old EKG on this patient. I applied the [place] Modified Sgarbossa criteria as follows: Sgarbossa's Criteria for PR in Left Bundle Branch Block from [email or web address]. on 03/05/2022 All calculations should be rechecked by clinician prior to use RESULT SUMMARY: 0 points In the original Sgarbossa criteria, a score of <3 typically is not considered diagnostic of acute PR, but also does not rule out PR. In concerning patients, repeating EKGs and cardiac enzymes may be helpful, along with cardiology consultation. NOTE: the Modified Sgarbossa Criteria (which changes the third criteria) does not use the points system, it is positive if any criteria are met. INPUTS: Concordant ST elevation > 1mm in leads with a positive QRS complex ?> 0 = No Concordant ST depression > 1 mm in V1-V3 ?> 0 = No Excessively discordant ST elevation (or depression) in leads with a negative QRS ?> 0 = No In the anterior leads, this patient is deep S waves, and the ST elevation is 3-4 mm and the discordant ST elevation is approximately 14% of the depth of the S wave. Therefore, this patient does not qualify for a STEMI according to these criteria. Although his symptoms are concerning, he clinically appears well. After 4 baby aspirin and 1 nitroglycerin, his chest tightness is gone, he still has some mild tingling in his left upper extremity, but it is improved. Nitroglycerin paste 1 inch was placed on his chest. Initial troponin came back within normal limits at 7. The rest of his work-up was unremarkable. His 1 view chest x-ray on my interpretation is normal showing a narrow mediastinum, no pleural effusions, infiltrates, or other acute cardiopulmonary abnormality. Discussed with Dr. Mathews hospitalist will admit to observation monitored bed for further evaluation she agrees that the patient is a high heart score and is high risk of having unstable angina here. While patient was awaiting a bed in the ED, staff noticed that his QRS complex seem to vary on the monitor. My interpretation of 1 particular rhythm strip was that the patient appeared to go in and out of a left bundle; his rhythm did not change. We were already repeating his EKG at that time just because his chest discomfort had resolved, and the EKG shows that he is still in a left bundle and it was basically unchanged compared with his initial 1. Lab Data Attestation: I reviewed the patient's lab results. Labs: Laboratory Results - last 24 hr 03/05/22 03/05/22 03/05/22 04:05 04:05 04:05 WBC 9.8 RBC 5.92 Hgb 18.0 H* Hct 53.6 MCV 90.5 MCH 30.4 MCHC 33.6 RDW Std Deviation 45.8 H RDW Coeff of Chidi 13.5 Plt Count 316 MPV 9.3 Immature Gran % (Auto) 0.600 Neut % (Auto) 47.3 Lymph % (Auto) 40.0 [place] % (Auto) 9.0 Eos % (Auto) 2.5 Baso % (Auto) 0.6 Absolute Neuts (auto) 4.6 Absolute Lymphs (auto) 3.90 Nucleated RBC % 0 APTT 32.1 Sodium 139 Potassium 4.0 Chloride 108 H Carbon Dioxide 25.0 Anion Gap 6 BUN 16 Creatinine 0.89 Estim Creat Clear Calc 98.71 Est GFR (MDRD) Af Amer 113 Est GFR (MDRD) Non-Af 94 BUN/Creatinine Ratio 17.9 Glucose 133 H Calcium 9.5 Magnesium Troponin I High Sens 7 03/05/22 04:05 WBC RBC Hgb Hct MCV MCH MCHC RDW Std Deviation RDW Coeff of Chidi Plt Count MPV Immature Gran % (Auto) Neut % (Auto) Lymph % (Auto) [place] % (Auto) Eos % (Auto) Baso % (Auto) Absolute Neuts (auto) Absolute Lymphs (auto) Nucleated RBC % APTT Sodium Potassium Chloride Carbon Dioxide Anion Gap BUN Creatinine Estim Creat Clear Calc Est GFR (MDRD) Af Amer Est GFR (MDRD) Non-Af BUN/Creatinine Ratio Glucose Calcium Magnesium 2.5 Troponin I High Sens Radiography Diagnostic Testing: Clinical Impression(s) from Imaging Studies Chest X-Ray 03/05/22 03:59 IMPRESSION: No radiographic evidence of acute cardiopulmonary disease. Electronically Signed: Prabhakar Robertson MD at 4:47 EST , Rhythm Strip Rhythm Strip: Sinus Rhythm Rate: 85 Ectopy: None EKG Initial EKG: Attestation: I personally reviewed and interpreted this EKG as follows: Interpretation: Sinus Rhythm, No Acute Injury Pattern and LBBB Prior: No Prior Follow-up EKG: Attestation: I personally reviewed and interpreted this EKG as follows: Interpretation: Sinus Rhythm, No Acute Injury Pattern and LBBB Comments: (when CP-free) Prior: Unchanged Discharge Plan Dx/Rx/DC Orders Clinical Impression: ACS (acute coronary syndrome) Disposition Disposition: Acute Care Hospital [facility]
[2022-03-05] MEDS: Aspirin 81 MG TAB.CHEW 324 MG PO (04:07)
[2022-03-05 04:17] LABS: Absolute Neutrophil Count 4.6 X10^3/uL (2.0-7.7); Basophil# 0.06 X10^3/uL; Basophil% 0.6 % (0-1); Eosinophil# 0.24 X10^3/uL; Eosinophils% 2.5 % (0-5); Hematocrit 53.6 % (40-54); Mean Corp Hgb Conc 33.6 g/dL (32-36); Mean Corpuscular Hgb 30.4 pg (27.0-32.0); Mean Corpuscular Volume 90.5 fL (80-94); Mean Platelet Vol. 9.3 fl (6.2-12.0); Monocyte# 0.88 X10^3/uL; NRBC Flagged by Analyzer 0 % (0-5); Neutrophil # 4.62 X10^3/uL (2.7-7.7); Neutrophil % 47.3 % (47-70); Platelet Count 316 K/mm3 (150-450); RBC Distribution Width CV 13.5 % (11.6-14.6); RBC Distribution Width SD 45.8 fl (35.1-43.9); Red Blood Count 5.92 M/mm3 (4.6-6.2); White Blood Count 9.8 K/mm3 (4.4-11.0)
[2022-03-05] MEDS: Nitroglycerin SL (ED/IMG/CATH) 0.4 MG TABLET SL (04:17)
[2022-03-05 04:31] LABS: Partial Thromboplast Time 32.1 Seconds (24.1-36.2)
--- NOTE | 2022-03-05 04:40 | HP.PCM.HOS_ITS ---
HPI - General General Date of Service: 03/05/22 Chief Complaint: Chest pain HPI Narrative The patient is a 56 y/o M w/ PMHx: HTN, HLD, Tobacco use, recently placed on new BP medications and from discussions may have been off medications for some time, Issues with bleeding hemorrhoids with planned upcoming repeat endoscopies who presents to the [facility] ED on 03/05/22 with history of falling getting up at his normal hour of midnight while into his second cup of coffee onset of midsternal and left-sided chest discomfort described as a tightness rated 4 out of 10 in s everity with a mild dry cough, dizziness as well as lightheadedness in addition to radiation of the discomfort into the left upper extremity with associated paresthesias noted the discomfort of the left upper extremity being mildly worse than in the chest rating it 6 out of 10 in severity not resolving prompting eventual ED evaluation. In the ED patient initiated on nitroglycerin series and following even just 1 sublingual nitroglycerin notes resolution of the chest discomfort and near resolution of the left upper extremity discomfort. Work-up in the ED included T97.7, heart rate 90, BP initially 187/110 with most recent repeat 157/101, respiratory rate 17, 98% on room air, CBC w/ WBC 9.8, Hgb 18, Plts 316 without shift, BMP with glucose 133 otherwise not marked appearing, troponin 7, chest x-ray prelim on hospitalist reviewed with no acute cardiopulmonary findings with final read pending, EKG with sinus rhythm with left bundle branch block of unclear chronicity with no acute evidence of ischemia. In the ED patient ministered nitroglycerin eventually placed on nitroglycerin ointment given symptomatic improvement as well as administration of aspirin full-strength therapy x1. FOR[facility], [facility] Medical History HLD (hyperlipidemia) HTN (hypertension) Internal hemorrhoid, bleeding Tobacco use Home Medications amlodipine 5 mg tablet 5 mg PO DAILY 03/05/22 [History Last Taken Unknown] bupropion HCl 150 mg 24 hr tablet, extended release 150 mg PO DAILY 03/05/22 [History Last Taken Unknown] Allergy/AdvReac Type Severity Reaction Status Date / Time Penicillins Allergy Hives Verified 03/05/22 04:00 Family History (Updated 11/24/21 @ 13:04 by Guera Espinoza) Father Heart disease Diabetes Emphysema lung Mother Diabetes Uncle Colon cancer Surgical History (Updated 03/05/22 @ 04:[address] Maria Mathews MD) History of colonoscopy No history of previous surgery Social History (Updated 03/05/22 @ 04:[address] Maria Mathews MD) household members: significant other Smoking Status: Current every day smoker tobacco type: cigarettes Smoking packs per day: 1 Smoking cigarettes per day: 20.0 Years smoked: 31 Smoking pack-years: 31.00 alcohol intake: current substance use type: does not use ROS ROS Narrative Admission Review of Systems: CONSTITUTIONAL: No weight loss, fever, chills, + weakness or fatigue. HEENT: Eyes: No visual loss, blurred vision, double vision or yellow sclerae. Ears, Nose, Throat: No hearing loss, sneezing, congestion, runny nose or sore th roat. SKIN: No rash or itching, lesions, wounds. CARDIOVASCULAR: + Dizziness, lightheadedness chest pain, chest pressure or chest discomfort, No palpitations, edema, orthopnea, syncopal events. RESPIRATORY: + Transient cough. No shortness of breath, sputum, wheezing, hemoptysis. GASTROINTESTINAL: No anorexia, nausea, vomiting or diarrhea, abdominal pain, melena, BRBPR. GENITOURINARY: No dysuria, frequency, urgency or retention. NEUROLOGICAL: + Dizziness, lightheadedness, No headache, paralysis, ataxia, numbness or tingling in the extremities, focal weakness, change in bowel or bladder control, seizure. MUSCULOSKELETAL: + muscle, back pain, joint pain or stiffness. HEMATOLOGIC: + bleeding or bruising. LYMPHATICS: No enlarged nodes. No history of splenectomy. PSYCHIATRIC: No history of depression or anxiety. ENDOCRINOLOGIC: No reports of sweating, cold or heat intolerance. No polyuria or polydipsia. ALLERGIES: No history of asthma, hives, eczema or rhinitis. Vital Signs Vital Signs Vital Signs: 03/05/22 04:01 03/05/22 03:59 03/05/22 04:04 Temperature 97.7 F L Temperature Source Temporal Pulse Rate 90 Respiratory Rate 17 Respiratory Effort Normal Blood Pressure 187/110 H Blood Pressure Mean 135 Pulse Ox 98 98 Oxygen Delivery Method Room Air Nasal Cannula 03/05/22 04:17 Temperature Temperature Source Pulse Rate 84 Respiratory Rate Respiratory Effort Blood Pressure 157/101 H Blood Pressure Mean Pulse Ox Oxygen Delivery Method Weight Weight: 166 lb 1.6 oz Body Mass Index (BMI) 23.1 Physical Exam Narrative Physical Examination: General: Awake, alert, oriented x 3 and cooperative, seated upright in the ED bed, chest discomfort resolved following nitroglycerin administration with the ED initiating nitroglycerin ointment patch Skin: Normal color, normal turgor, no icterus, no cyanosis. HEENT: AT/NC, EOMI, PERRLA, MMM, no carotid bruits or JVD noted. Lungs: CTA bilaterally, moderate effort, mild decrease BL bases, no rales, ronchi or wheezing. Heart: Currently regular rate and rhythm; no gallop, rub audible. Abdomen: Soft, NTTP, ND, distant normal BS, no HSM. Extremities: No cyanosis, clubbing, or edema. Neurological: Patient awake, alert, oriented as noted, cognitive function intact; pupils equally reactive to light and accommodation, cranial nerves II- XII grossly normal, moving all 4 extremities, no focal deficits, strength mildly global decrease, improving given chest discomfort resolution Psychiatric: Affect appears fatigued, no acute evidence of depressive or anxiety feelings. Results Lab / Micro Data Result Diagrams: 03/05/22 04:05 03/05/22 04:05 Labs: Laboratory Results - last 24 hr 03/05/22 04:05: APTT 32.1 Assessment & Plan Assessment/Plan (1) Chest pain: PLAN: Plan The patient is a 56 y/o M w/ PMHx: HTN, HLD, Tobacco use, recently placed on new BP medications and from discussions may have been off medications for some time, Issues with bleeding hemorrhoids with planned upcoming repeat endoscopies who presents to the [facility] ED on 03/05/22 with history of falling getting up at his nor mal hour of midnight while into his second cup of coffee onset of midsternal and left-sided chest discomfort described as a tightness rated 4 out of 10 in severity with a mild dry cough, dizziness as well as lightheadedness in addition to radiation of the discomfort into the left upper extremity. #1. Chest Pain: EKG in ED sinus rhythm with left bundle branch block of unclear chronicity with no acute evidence of ischemia, CXR w/ no obvious acute cardiopulmonary findings on prelim read however final read pending, initial trop 7. Will admit to PCU, place on a monitored bed to assure no acute myocardial infarction with serial cardiac enzymes and EKGs. If repeat serial cardiac enzymes and EKGs remain unremarkable will pursue a.m. cardiac stress testing however if patient with significant recurrent discomfort or changes low threshold to involve cardiology given admission story line. Magnesium level requested. FLP in AM. ASA, NG, morphine. #2. Hypertension, uncontrolled: ED presentation with elevated BP, improved following repeat assessment, currently placed on NG paste which will be continued, continue recently transition amlodipine regimen, likely will need further regimen changes, as needed IV hydralazine also in interim. #3. Hyperlipidemia: Patient reportedly recently started on statin therapy, unclear dosing, will start atorvastatin in the interim, FLP in AM. #4. Tobacco Abuse: Encouraged cessation, inpatient consultation per RT, NR if desired, continue patient recently initiated bupropion regimen. #5. History of internal hemorrhoids: Awaiting CBC as noted, patient notes this has been an ongoing issue and is awaiting set up for outpatient endoscopy. #6. DVT prophylaxis: SCDs, Lovenox. Admission Evaluation Time spent evaluating chart, patient history, patient evaluation, care planning and discussion with specialists: 55 minutes. Charges/Coding Visit Charges Inpatient E&M: 99525 Init Hosp L2
[2022-03-05 04:41] LABS: Anion Gap 6 (5-15); BUN 16 mg/dL (7-18); BUN/Creat Ratio 17.9 RATIO (10-20); Calcium,Total 9.5 mg/dL (8.5-10.1); Chloride 108 mmol/L (98-107); Creatinine, Serum 0.89 mg/dL (0.70-1.30); EST Glomerular Filtration Rate 94 mL/min (>60); Est Glom Filt Rate - Afr Amer 113 mL/min (>60); Estimated Creatinine Clearance 98.71 ml/min; Glucose 133 mg/dL (74-106); Sodium Level 139 mmol/L (136-145); Troponin-I HS (w/2H Reflex) 7 pg/mL (3.0-78.0)
[2022-03-05] MEDS: Nitroglycerin Oint 1 INCH PACKET TD (04:50)
[2022-03-05 04:52] LABS: Differential Indicated SCAN CRITERIA MET
--- NOTE | 2022-03-05 04:56 | ED.RN ---
Pt given one nitro of series, pt denied other two tablets.
[2022-03-05 05:09] LABS: Magnesium 2.5 mg/dL (1.6-2.6)
--- NOTE | 2022-03-05 05:47 | EKG12_ITS ---
Test Reason : CP ADMIT Blood Pressure : / mmHG Vent. Rate : 072 BPM Atrial Rate : 072 BPM P-R Int : 166 ms QRS Dur : 156 ms QT Int : 454 ms P-R-T Axes : 058 -18 126 degrees QTc Int : 497 ms Normal sinus rhythm Right atrial enlargement Left bundle branch block Abnormal ECG When compared with ECG of 05-MAR-2022 04:01, MANUAL COMPARISON REQUIRED, DATA IS UNCONFIRMED Confirmed by AKILA SONI, ANA LUISA ([id number]), editorial manager ANTOINETTE ANSARI ([id number]) on 03/09/2022 9:30:48 AM Referred By: KATIE Confirmed By:ANA LUISA WILBURN MD
[2022-03-05] MEDS: 0.9% Normal Saline 1,000 ML 100 ML IV (06:02)
[2022-03-05 06:14] LABS: Reflex Troponin-HS? (from REC) Y
[2022-03-05 07:27] LABS: Cholesterol 257 mg/dL (200); High Density Lipoprotein 63 mg/dL; Triglycerides 114 mg/dL; Troponin-I HS 7 pg/mL (3.0-78.0); Very Low Density Lipoprotein 23 mg/dL (5-40)
[2022-03-05] MEDS: buPROPion (XL) 150 MG TABLET.XL PO (08:13)
[2022-03-05] MEDS: amLODIPine 5 MG Tablet PO (08:13)
[2022-03-05] MEDS: Aspirin E.C. 81 MG Tablet PO (08:13)
--- NOTE | 2022-03-05 11:57 | STRESSREP ---
Stress Test Report Exercise myocardial perfusion stress test. 56-year-old man with a history of chest pain and negative troponin Stress protocol: Resting EKG demonstrates normal sinus rhythm with a rate of 62 bpm resting blood pressure is 138/94 mmHg. T wave inversions were noted in the anterior leads. The patient exercised according to the regular Andre protocol for a total duration of 6 minutes and 45 seconds attaining a maximum heart rate of 141 bpm which was 85% of maximum predicted heart rate; the maximum workload was 9.3 metabolic equivalents. At rest there were no ST or T wave changes noted to suggest ischemia, but during exercise the patient went into a left bundle branch block pattern and at peak exercise upsloping ST changes only were noted which did not meet the criteria for ischemia. Left bundle branch block pattern was noted. No clinical angina was noted the test was terminated due to the target heart rate being achieved/fatigue. The peak blood pressure was 162/98 mmHg. Rate-pressure product was 21,200. Myocardial perfusion protocol. 11.0 mCi of technetium 99m sestamibi was injected at rest. The patient exercised according to regular Andre protocol for total duration of 6 minutes 45 seconds and at peak exercise 33.1 mCi of technetium 99m sestamibi was injected stress images were obtained stress and rest images were reconstructed in comparing the short axis vertical long and horizontal long axis. Gated images were also obtained. Perfusion SPECT analysis: Review of the stress images demonstrate normal uptake of tracer noted in all areas of the myocardium. The resting images similarly demonstrate normal uptake of tracer noted in all areas of the myocardium. No areas of reversibility are noted to suggest ischemia no previous infarct was noted. Gated SPECT analysis: The gated ejection fraction is 55%. Conclusion: Normal exercise myocardial perfusion stress test at a high workload Preserved ejection fraction. Intermittent likely rate dependent bundle branch block with resultant T wave inversions.
--- NOTE | 2022-03-05 12:37 | PCM.DC.SUM ---
Providers Date of Admission: 03/05/22 Date of Discharge: 03/05/22 Primary Care Physician: RAJ Red Reason For Visit: CHEST PAIN Diagnosis Discharge Diagnosis (1) Chest pain: Status: Resolved Code(s): R07.9 - Chest pain, unspecified Medications at Discharge Home Medications amlodipine 5 mg tablet 10 mg PO DAILY #30 tabs 03/05/22 atorvastatin 40 mg tablet 40 mg PO DAILY #30 tabs 03/05/22 bupropion HCl 150 mg 24 hr tablet, extended release 150 mg PO DAILY 03/05/22 Hospital Course Procedures Stress test Summary of Care Provided Minutes Spent on Discharge: Hospital Course: Mr. Medel is a 56-year-old white male who presented to the emergency department at [facility] early this morning complaining of left-sided chest pain. He rated it as a tightness at 4 out of 10 in severity and was associated with a mild dry cough and some dizziness/lightheadedness. He reported some radiation to the left upper extremity with associated paresthesias. He presents emergency department and was given nitroglycerin on with resolution after 1 dose. He does have history of hypertension, hyperlipidemia, and tobacco abuse. Work-up in the emergency department was overall unremarkable. His initial troponin was 7 and his EKG had no acute findings but there was presence of a left bundle branch block and the chronicity of this was unclear. He was admitted to the telemetry floor and his cardiac enzymes were cycled. Recurrent enzymes did not elevate at all. We obtained a lipid profile and his total cholesterol was 257/LDL 171/HDL 63. A stress test was performed and was negative for any inducible ischemia with a high workload. He did have a rate dependent bundle branch block. His symptoms have since resolved and he is stable for discharge. His blood pressure was noted to be elevated above recommended goal and his amlodipine was increased from 5 to 10 mg daily. With his cholesterol elevation he was also started on atorvastatin 40 mg daily. Both these prescriptions were faxed to the pharmacy. Patient was discharged home in stable condition and instructed to follow-up with his primary care physician within the next 2 weeks. Discharge diagnoses: Chest pain-resolved Hypertension Hyperlipidemia History of tobacco abuse Internal hemorrhoids with intermittent bleeding Physical Exam Const alert, oriented x3 and no apparent distress General Appearance: cooperative, comfortable, well kempt and well developed HEENT normocephalic, head/scalp atraumatic and moist oral mucous membranes Resp normal respiratory effort, no retractions, no use of accessory muscles and clear to auscultation bilaterally Resp Narrative: diffusely diminished Auscultation: Negative for crackles, rhonchi or wheezes Cardio regular rate, regular rhythm, S1 normal heart sound, S2 normal heart sound, no rub, no gallops and no clicks GI normal to inspection, nondistended, normoactive bowel sounds, soft to palpation, non-tender and non-distended Extremity no clubbing, cyanosis or edema Skin no rashes or lesions noted, no wounds, skin turgor normal and no jaundice Neuro oriented x3, CN's II-XII intact bilaterally, moves all extremities and no focal motor deficits Speech: speech normal Psych affect normal Weight / BMI Weight Weight: 72.8 kg Body Mass Index (BMI) 22.4 ABG / Lab / Microbiology Data Result Diagrams: 03/05/22 04:05 03/05/22 04:05 Laboratory: Laboratory Results - last 24 hr 03/05/22 04:05: WBC 9.8, RBC 5.92, Hgb 18.0 H*, Hct 53.6, MCV 90.5, MCH 30.4, MCHC 33.6, RDW Std Deviation 45.8 H, RDW Coeff of Chidi 13.5, Plt Count 316, MPV 9.3, Immature Gran % (Auto) 0.600, Neut % (Auto) 47.3, Lymph % (Auto) 40.0, Webb % (Auto) 9.0, Eos % (Auto) 2.5, Baso % (Auto) 0.6, Absolute Neuts (auto) 4.6, Absolute Lymphs (auto) 3.90, Nucleated RBC % 0, Diff Path Review June03/05/22 04:05: Sodium 139, Potassium 4.0, Chloride 108 H, Carbon Dioxide 25.0, Anion Gap 6, BUN 16, Creatinine 0.89, Estim Creat Clear Calc 98.71, Est GFR (MDRD) Af Amer 113, Est GFR (MDRD) Non-Af 94, BUN/Creatinine Ratio 17.9, Glucose 133 H, Calcium 9.5, Troponin I High Sens 7 03/05/22 04:05: APTT 32.1 03/05/22 04:05: Magnesium 2.5 03/05/22 06:00: Troponin I High Sens 7, Triglycerides 114, Cholesterol 257 H, LDL Cholesterol 171 H, VLDL Cholesterol 23, HDL Cholesterol 63 Radiography Diagnostic Testing: Radiology Impression Chest X-Ray 03/05/22 03:59 IMPRESSION: No radiographic evidence of acute cardiopulmonary disease. Electronically Signed: Prabhakar Robertson MD at 4:47 EST , Meaningful Use Info Meaningful Use Diagnoses (Choose all that apply): None applicable Discharge Plan Admission Admit Date/Time: 03/05/22 04:49 Primary Reason for Your Visit: Chest Pain Attending Provider: Jodie Canas Primary Care Provider: Roma Garzon NP Consulting Providers: Maria Mathews Discharge Orders/Prescriptions Prescriptions: New atorvastatin 40 mg tablet 40 mg PO DAILY Qty: 30 0RF Changed amlodipine 5 mg tablet 10 mg PO DAILY Qty: 30 2RF No Action bupropion HCl 150 mg tablet extended release 24 hr 150 mg PO DAILY Label Comments: TAKE 1 TABLET BY MOUTH DAILY Referrals / Follow Up: Roma Garzon PHARMACY CLINICAL SPECIALIST, PHARMACY CLINICAL SPECIALIST-[facility] [Primary Care Provider] - Within 2 Weeks Disposition Disposition (needs filled in before D/C Order can be placed): Home, Self Care Charges/Coding Visit Charges Inpatient E&M: 82639 Disch Hosp
[2022-03-05 13:17] LABS: Hemoglobin A1c 5.9 % (3.8-5.6)
[2022-03-06 09:23] LABS: Pathologist Review Reviewed
== END 2022-03-05 13:27 | disposition home or self-care (01) ==
LOC: ED 04:44 → ICU 06:44
PROVIDERS: Admitting Provider Family Medicine; Emergency Provider Emergency Medicine; PCP Internal Medicine; Visit Provider Internal Medicine
DX: R07.89 Other chest pain (principal); R42 Dizziness and giddiness; F17.210 Nicotine dependence, cigarettes, uncomplicated; I44.7 Left bundle-branch block, unspecified; E78.00 Pure hypercholesterolemia, unspecified; K64.8 Other hemorrhoids; I10 Essential (primary) hypertension; Z79.899 Other long term (current) drug therapy; R20.0 Anesthesia of skin
CPT/HCPCS: J7030; 71045; 78452; 80048; 80061; 83036; 83735; 84484; 85025; 85730; 93005; 93017; 96360; 96361; 99221; 99285; A9500; A4216; G0378

== ENCOUNTER → 2023-11-15 | Outpatient (CLI) | payer MEDICAID, SELFPAY | END | disposition home or self-care (01) | LOC: SL 19:57 | PROVIDERS: PCP Internal Medicine; Referring Provider Internal Medicine; Visit Provider Internal Medicine | DX: G47.33 Obstructive sleep apnea (adult) (pediatric) (principal) | CPT/HCPCS: 95811 ==

== ENCOUNTER → 2023-11-26 | Outpatient (CLI) | payer MEDICAID, SELFPAY | END | disposition home or self-care (01) | LOC: SL 10:29 | PROVIDERS: PCP Internal Medicine; Visit Provider Internal Medicine | DX: Z00.00 Encounter for general adult medical examination without abnormal findings (principal) ==

== ENCOUNTER 2024-01-02 09:40 | Emergency (ER) | payer MEDICAID, SELFPAY ==
[2024-01-02 09:40] VITALS: BP 148/101; PULSE 60; RESP 18; TEMP 37; O2SAT 98; BMI 23.8
--- NOTE | 2024-01-02 10:14 | EDS_ITS ---
HPI History of Present Illness Chief Complaint: Constipation Informant: patient Onset/Context/Timing Onset: Days (5) Context: Gradual Onset Timing: Continuous Quality: Cramping Location: Lower abdomen Worsened by: Nothing Relieved by: Nothing Narrative Narrative: Patient presents with constipation that has been constant over the last 5 days. Patient states he has pain in and cramping in his lower abdomen. Patient states nothing makes it better nothing makes it worse. Patient states she has been using MiraLAX which has softened his stool. Patient states she still feels constipated however. Patient was seen at an urgent care last week and was diagnosed with a urinary tract infection. Patient was started on Bactrim at that time. Patient states that he started having worsening abdominal pain and went to the emergency department at [place]. Patient states she was diagnosed with pancreatitis at that time. Patient denies any fevers or chills. Patient denies any nausea or vomiting. Patient denies any urinary complaints. PFSH PFS Medical History Tobacco use HLD (hyperlipidemia) Internal hemorrhoid, bleeding HTN (hypertension) Home Medications ?Medication ?Instructions ?Recorded ?Last Taken ?Type amlodipine 5 mg tablet 10 mg (2 x 5 mg) PO DAILY #30 tabs 03/05/22 Unknown Rx atorvastatin 40 mg tablet 40 mg PO DAILY #30 tabs 03/05/22 Unknown Rx bupropion HCl 150 mg 24 hr tablet, 150 mg PO DAILY 03/05/22 Unknown History extended release cephalexin 500 mg capsule 500 mg PO Q6 #20 CAPSULES 01/02/24 Unknown Rx Allergy/AdvReac Type Severity Reaction Status Date / Time Penicillins Allergy Hives Verified 01/02/24 15:08 Family History (Updated 11/24/21 @ 13:04 by Guera Espinoza) Father Heart disease Diabetes Emphysema lung Mother Diabetes Uncle Colon cancer Surgical History No history of previous surgery History of colonoscopy Social History (Updated 01/02/24 @ 10:[address] Ba Solis DO) household members: significant other Smoking Status: Current every day smoker tobacco type: cigarettes alcohol intake: current substance use type: marijuana ROS ROS ED Constitutional Constitutional ED: Denies chills or fever(s) Eyes Eyes: Denies blurry vision or change in vision ENT ENT ED: Denies rhinorrhea or sore throat Cardiovascular Cardiovascular: Denies chest pain or palpitations Respiratory/Chest Respiratory/Chest: Denies cough or dyspnea Gastrointestinal Gastrointestinal: Reports abdominal pain and constipation; Denies nausea or vomiting Genitourinary Genitourinary ED: Denies dysuria or hematuria Musculoskeletal Musculoskeletal: Denies back pain or neck pain Integumentary Denies abscess or rash Neurologic Neurologic: Denies headache(s) or weakness Allergic/Immunologic Allergic/Immunologic ED: Denies mouth swelling or urticaria EXAM Physical Exam Const Vital Signs: 01/02/24 09:40 01/02/24 11:43 01/02/24 13:00 Temperature 98.6 F Temperature Source Oral Pulse Rate 60 79 87 Respiratory Rate 18 15 16 Blood Pressure 148/101 H 142/86 H 137/75 H Blood Pressure Mean 116 104 95 Pulse Ox 98 96 100 Oxygen Delivery Method Room Air Room Air Room Air 01/02/24 15:00 Temperature Temperature Source Pulse Rate 72 Respiratory Rate 16 Blood Pressure 154/100 H Blood Pressure Mean 118 Pulse Ox 99 Oxygen Delivery Method Positive well nourished and well developed General Appearance ED: well developed and NAD HEENT Reports moist mucous membranes Neck supple and no JVD Resp normal respiratory effort and clear to auscultation bilaterally Cardio regular rate and regular rhythm GI non-distended Palpation: soft and tender LLQ, RLQ and suprapubic; Negative for guarding or rebound tenderness present Extremity normal to inspection General Extremety ED: Negative for edema or tenderness General Extremity: Negative for edema Neuro oriented x3, CN's II-XII intact bilaterally and no sensory deficits noted Sensorium / Orientation: alert Motor Exam: strength 5/5 throughout Psych mental status grossly normal MDM MDM MDM Narrative Medical decision making narrative: Differential diagnosis includes constipation, bowel obstruction, perforation, ascites, pancreatitis, and urinary tract infection. CBC will be obtained to assess for leukocytosis and anemia. Comprehensive metabolic profile will be obtained to assess for hepatic function, renal function, and electrolyte abnormality. Lipase will be obtained to assess for pancreatitis. Urinalysis will be obtained to assess for urinary tract infection and hematuria. CT scan of the abdomen and pelvis will be obtained to assess for bowel obstruction and perforation. Lab Data Attestation: I reviewed the patient's lab results. Lab results narrative: CBC was reviewed and was essentially within normal limits. Comprehensive metabolic profile was reviewed and was essentially within normal limits. Lipase was reviewed and was slightly elevated at 131. Urinalysis was reviewed. Leukocyte esterase was 25. There are 10-25 white blood cells. There are 5-10 epithelial cells. Labs: Laboratory Results - last 24 hr 01/02/24 01/02/24 11:14 13:02 WBC 7.8 RBC 5.88 Hgb 17.4 H Hct 52.1 MCV 88.6 MCH 29.6 MCHC 33.4 RDW Std Deviation 42.3 RDW Coeff of Chidi 13.0 Plt Count 308 MPV 9.4 Immature Gran % (Auto) 0.300 Neut % (Auto) 49.0 Lymph % (Auto) 40.6 [place] % (Auto) 7.8 Eos % (Auto) 1.7 Baso % (Auto) 0.6 Absolute Neuts (auto) 3.8 Absolute Lymphs (auto) 3.16 Nucleated RBC % 0 Sodium 140 Potassium 4.0 Chloride 109 H Carbon Dioxide 25.0 Anion Gap 6 BUN 10 Creatinine 0.80 Estim Creat Clear Calc 107.20 Est GFR (MDRD) Af Amer 127 Est GFR (MDRD) Non-Af 105 BUN/Creatinine Ratio 12.4 Glucose 125 H Calcium 9.0 Total Bilirubin 0.40 AST 10 L ALT 27 Alkaline Phosphatase 79 Total Protein 7.2 Albumin 3.6 Globulin 3.6 Albumin/Globulin Ratio 1.0 Lipase 131 H Urine Color Yellow Urine Clarity Clear Urine pH 5.0 Ur Specific Witten 1.015 Urine Protein Negative Urine Glucose (UA) 100 H Urine Ketones Negative Urine Occult Blood Negative Urine Nitrite Negative Urine Bilirubin Negative Urine Urobilinogen Normal Ur Leukocyte Esterase 25 H Urine RBC 0-5 SEEN Urine WBC 10-25 SEEN Ur Squamous Epith Cells 5-10 SEEN Urine Bacteria RARE Hyaline Casts 0-5 SEEN Urine Mucus 1+ Radiography Diagnostic Testing: Clinical Impression(s) from Imaging Studies Abdomen/Pelvis CT 01/02/24 10:42 IMPRESSION: 1. No acute abdominal or pelvic abnormality. 2. Diverticulosis coli. Electronically Signed: Bernard Garcia MD at 13:37 EST , CT scan of the abdomen and pelvis was obtained. There is no acute abnormality noted. There is diverticulosis but no evidence of diverticulitis. There is no bowel obstruction or perforation. This was interpreted by the radiologist and was also independently reviewed by myself Treatment and Re-Evaluation :: Patient was advised of his findings. Patient was given a dose of Keflex here. Patient will be monitored for allergic reaction due to the 10% risk of cross- reactivity between penicillins and cephalosporins. Urine culture was ordered. Patient was observed in the emergency department for 1 hour after giving the Keflex dose. Patient had no rashes or hives. Patient denies shortness of breath. Patient did not feel any swelling of his throat. Patient was given a prescription for Keflex. Patient was instructed to follow-up with his primary care physician in 5 to 7 days. Patient was instructed to return if worse in any way. Patient understood and was agreeable with the plan. All questions were answered. Discharge Plan Triage Chief Complaint: Constipation ED Provider: Ba Solis Dx/Rx/DC Orders Clinical Impression: Urinary tract infection, Constipation Instructions: ED Constipation (Adult), ED Bladder Infection, Male (Adult) Prescriptions: New cephalexin 500 mg capsule 500 mg PO Q6 Qty: 20 0RF No Action bupropion HCl 150 mg tablet extended release 24 hr 150 mg PO DAILY Patient Comments: TAKE 1 TABLET BY MOUTH DAILY atorvastatin 40 mg tablet 40 mg PO DAILY Qty: 30 0RF amlodipine 5 mg tablet 10 mg PO DAILY Qty: 30 2RF Primary Care Provider: Roma Garzon NP Referrals: Roma Garzon NP, [facility] [Primary Care Provider] - 5-7 Days Print Language: Micronesian Disposition Disposition: Home, Self Care
--- NOTE | 2024-01-02 10:42 | CT_ITS ---
EXAM: CT ABDOMEN AND PELVIS WITH INTRAVENOUS CONTRAST CLINICAL INDICATION: Abdominal pain TECHNIQUE: Helically acquired images were obtained of the abdomen and pelvis with intravenous contrast. This CT exam was performed using one or more of the following dose reduction techniques: automated exposure control, adjustment of the mA and/or kV according to patient size, and/or use of iterative reconstruction technique. CONTRAST: IV 100mL Isovue-370 COMPARISON: No relevant prior studies available. FINDINGS: LOWER THORAX: Normal. Lung bases are clear. No cardiomegaly. No pericardial effusion. ABDOMEN: LIVER: Normal. Homogeneous. No focal mass. GALLBLADDER AND BILE DUCTS: Normal. No calcified gallstones. No gallbladder distention or wall edema. No intra- or extrahepatic biliary ductal dilation. PANCREAS: Normal. No focal cystic or solid mass. SPLEEN: Normal. Normal size without focal cystic or solid mass. ADRENALS: Normal. No nodules. KIDNEYS AND URETERS: Small parapelvic renal cysts noted bilaterally. No specific follow-up indicated. No hydronephrosis. STOMACH AND BOWEL: Diverticulosis of the colon noted without evidence of acute diverticulitis. PELVIS: APPENDIX: Appendix is visualized and normal in appearance. BLADDER: Normal. REPRODUCTIVE: Prostate gland is mildly enlarged. ABDOMEN and PELVIS: INTRAPERITONEAL SPACE: Normal. No ascites or other fluid collection. No free air. BONES/JOINTS: No suspicious lytic or blastic abnormality. SOFT TISSUES: Small fat-containing umbilical hernia is present. VASCULATURE: Normal. Abdominal aorta is non-dilated. LYMPH NODES: Normal. No enlarged lymph nodes. CT/Abdomen/Pelvis W IV Cont ONLY IMPRESSION: 1. No acute abdominal or pelvic abnormality. 2. Diverticulosis coli. Electronically Signed: Bernard Garcia MD at 13:37 EST ,
[2024-01-02 11:43] VITALS: BP 142/86; PULSE 79; RESP 15; O2SAT 96
[2024-01-02 11:46] LABS: Absolute Lymphocyte Count 3.16 X10^3/uL (0.83-4.51); Absolute Neutrophil Count 3.8 X10^3/uL (2.0-7.7); Basophil# 0.05 X10^3/uL; Basophil% 0.6 % (0-1); Eosinophil# 0.13 X10^3/uL; Eosinophils% 1.7 % (0-5); Hematocrit 52.1 % (40-54); Hemoglobin 17.4 g/dL (13.0-16.5); Lymphocyte # 3.16 X10^3/ul (0.83-4.51); Lymphocyte % 40.6 % (19-41); Mean Corp Hgb Conc 33.4 g/dL (32-36); Mean Corpuscular Hgb 29.6 pg (27.0-32.0); Mean Corpuscular Volume 88.6 fL (80-94); Mean Platelet Vol. 9.4 fl (6.2-12.0); Monocyte# 0.61 X10^3/uL; Monocyte% 7.8 % (0-10); NRBC Flagged by Analyzer 0 % (0-5); Neutrophil # 3.81 X10^3/uL (2.7-7.7); Platelet Count 308 K/mm3 (150-450); RBC Distribution Width SD 42.3 fl (35.1-43.9); Red Blood Count 5.88 M/mm3 (4.6-6.2); White Blood Count 7.8 K/mm3 (4.4-11.0)
[2024-01-02 12:03] LABS: AST(SGOT) 10 U/L (15-37); Alanine Aminotransfer ALT/SGPT 27 U/L (16-61); Albumin, Serum 3.6 g/dL (3.2-5.0); Alkaline Phosphatase 79 U/L (45-117); Anion Gap 6 (5-15); BUN 10 mg/dL (7-18); BUN/Creat Ratio 12.4 RATIO (10-20); Chloride 109 mmol/L (98-107); EST Glomerular Filtration Rate 105 mL/min (>60); Est Glom Filt Rate - Afr Amer 127 mL/min (>60); Globulin 3.6 g/dL (2.2-4.2); Glucose 125 mg/dL (74-106); Protein, Total 7.2 g/dL (6.4-8.2); Sodium Level 140 mmol/L (136-145)
[2024-01-02 12:17] LABS: Lipase 131 U/L (13-75)
[2024-01-02 13:00] VITALS: BP 137/75; PULSE 87; RESP 16; O2SAT 100
[2024-01-02 13:09] LABS: Color, Urine Yellow (Yellow); Glucose, Dipstick 100 mg/dl (Normal); Ketone-Dipstick Negative (Negative); Leukocyte Esterase-Dipstick 25 /ul (Negative); Nitrite-Dipstick Negative (Negative); Occult Blood-Urine Negative /ul (Negative); Protein-Dipstick Negative (Negative); Specific Gravity, Urine 1.015 (1.002-1.030); Urine Bilirubin Dipstick Negative (Negative); Urine Clarity Clear (Clear); Urine Urobilinogen Normal (Normal)
[2024-01-02 13:20] LABS: Bacteria RARE /hpf (None Seen); Hyaline Cast 0-5 SEEN /lpf (0-5); Mucous, Urine 1+ /hpf (<or=2+); Red Blood Cells-Urine 0-5 SEEN /hpf (0-5); Squamous Epithelial Cells - UA 5-10 SEEN /hpf (0-5); White Blood Cells 10-25 SEEN /hpf (0-5)
[2024-01-02] MEDS: Cephalexin 500 MG Capsule PO (14:57)
[2024-01-02 15:00] VITALS: BP 154/100; PULSE 72; RESP 16; O2SAT 99
[2024-01-02 15:58] VITALS: BP 148/98; PULSE 78; RESP 16; TEMP 36.6; O2SAT 99
== END 2024-01-02 15:59 | disposition home or self-care (01) ==
PROVIDERS: Emergency Provider Emergency Medicine; PCP Internal Medicine; Visit Provider Emergency Medicine
DX: N39.0 Urinary tract infection, site not specified (principal); F17.210 Nicotine dependence, cigarettes, uncomplicated; Z80.0 Family history of malignant neoplasm of digestive organs; K59.00 Constipation, unspecified; Z82.5 Family history of asthma and other chronic lower respiratory diseases; E78.5 Hyperlipidemia, unspecified; I10 Essential (primary) hypertension; F12.90 Cannabis use, unspecified, uncomplicated
CPT/HCPCS: 74177; 80053; 81001; 83690; 85025; 87086; 99283; Q9967; A4216

== ENCOUNTER 2024-06-21 21:59 | Emergency (ER) | payer MEDICAID, SELFPAY ==
[2024-06-21 22:00] VITALS: BP 147/98; PULSE 106; RESP 18; TEMP 36.3; O2SAT 95; BMI 23.4
--- NOTE | 2024-06-21 22:57 | EX.ED.DYSGE1 ---
HPI History of Present Illness Chief Complaint: GI Bleed [facility] Medical History Tobacco use HLD (hyperlipidemia) Internal hemorrhoid, bleeding HTN (hypertension) Home Medications ?Medication ?Instructions ?Recorded ?Last Taken ?Type amlodipine 5 mg tablet 10 mg (2 x 5 mg) PO DAILY #30 tabs 03/05/22 Unknown Rx atorvastatin 40 mg tablet 40 mg PO DAILY #30 tabs 03/05/22 Unknown Rx bupropion HCl 150 mg 24 hr tablet, 150 mg PO DAILY 03/05/22 Unknown History extended release cephalexin 500 mg capsule 500 mg PO Q6 #20 CAPSULES 01/02/24 Unknown Rx hydrocortisone 2.5 % topical cream 1 applic MD Q12H PRN hemorrhoids 06/21/24 Unknown Rx with perineal applicator #30 grams (Anusol-HC) Allergy/AdvReac Type Severity Reaction Status Date / Time Penicillins Allergy Hives Verified 06/21/24 22:00 Family History (Updated 11/24/21 @ 13:04 by Guera Espinoza) Father Heart disease Diabetes Emphysema lung Mother Diabetes Uncle Colon cancer Surgical History No history of previous surgery History of colonoscopy Social History (Updated 01/02/24 @ 10:[address] Ba Solis, DO) household members: significant other Smoking Status: Current every day smoker tobacco type: cigarettes alcohol intake: current substance use type: marijuana EXAM Physical Exam Const Vital Signs: 06/21/24 22:00 06/21/24 23:20 Temperature 97.3 F L 98.4 F Temperature Source Temporal Pulse Rate 106 H 89 Respiratory Rate 18 18 Blood Pressure 147/98 H 145/78 H Blood Pressure Mean 114 100 Pulse Ox 95 96 Oxygen Delivery Method Room Air MDM MDM MDM Narrative Medical decision making narrative: HISTORY OF PRESENT ILLNESS: Chief complaint: Hemorrhoid, bright red blood in the stool 88-year-old male presents with concern for bleeding after he applied Epson salt paste to hemorrhoid. He notes burning after application of Epsom salt and some bright red blood at time. The patient does not take blood thinners. No history of bleeding diathesis REVIEW OF SYSTEMS: Pertinent positives: Bright red blood per rectum Pertinent negatives: Lightheadedness, dizziness, PHYSICAL EXAM: Nursing triage notes reviewed, Vital signs reviewed Constitutional: please see mdm Neck: No stridor, no JVD, full neck ROM Lungs: Clear to auscultation, No wheezing or rales. No increased work of breathing, no conversational dyspnea, no accessory muscle use, no nasal flaring. No respiratory distress noted Heart: Regular rate and rhythm, No murmurs, No rubs and No gallops, 2+ distal pulses (radial, femoral, posterior tibial) in all extremities Abdomen: Soft, there is no tenderness, rigidity, rebound or guarding, no obvious peritoneal signs, no palpable pulsatile abdominal masses, no auscultated abdominal bruit : No CVAT Extremities: No edema Rectal: Performed furniture restorer nurse Constance in room. Showed 2 small abrasions noted at the 9 and 7 o'clock position of the likely source of patient's bleeding no thrombosed hemorrhoids noted. No fissures. No active bleeding noted. Skin: No rash or lesions noted MEDICAL DECISION MAKING: Chief Complaint: please see HPI [facility] Narrative: [Consistent with the patient was initially hemodynamically stable, afebrile and nontoxic-appearing. Exam rectal trauma likely from Epsom salt paste. I considered the following differential diagnosis: GI bleed, hemorrhoid Exam consistent with external rectal trauma causing abrasion and bleeding. Offered blood work the patient to rule out significant anemia however the patient refused that he did not think he bled enough to require blood transfusion. Recommended topical Preparation H, recommended against using Epsom salt at this time. Recommended close PCP follow-up The patient and/or family, caregivers express understanding. The patient and/or family, caregivers agrees with the plan. Shared decision making: I will have a discussion with the patient and or visitors regarding risk/benefits of further testing or admission. They will be made aware of of the risk/benefits inherent in this decision they will be given the opportunity to voice understanding. Total critical care time today provided was at least 0 minutes. This excludes separately billable procedures. Critical care time (if documented) is secondary to the patient having high probability of clinically significant/life threatening deterioration in the patient's condition which required my urgent intervention. Impression: 1. Rectal bleeding 2. History of hemorrhoid Dispo: Discharge home This note was generated with [employer] dictation software. It may contain incorrect words, spelling, and punctuation that were not noted in review of the chart prior to signing. Discharge Plan Triage Chief Complaint: GI Bleed ED Provider: Brayden Cruz Dx/Rx/DC Orders Prescriptions: New hydrocortisone [Anusol-HC] 2.5 % cream with perineal applicator 1 applic MD Q12H PRN (Reason: hemorrhoids) Qty: 30 0RF No Action bupropion HCl 150 mg tablet extended release 24 hr 150 mg PO DAILY Patient Comments: TAKE 1 TABLET BY MOUTH DAILY atorvastatin 40 mg tablet 40 mg PO DAILY Qty: 30 0RF amlodipine 5 mg tablet 10 mg PO DAILY Qty: 30 2RF cephalexin 500 mg capsule 500 mg PO Q6 Qty: 20 0RF Primary Care Provider: Roma Garzon NP Referrals: Ochoa Fuller DO [Med Staff - Active Staff] - Roma Garzon NP, [facility] [Primary Care Provider] - Activity Restrictions/Additional Instructions: Thank you for trusting us with your care today! Please take Tylenol (2 pills, 650 mg), ibuprofen (2 pills, 400 mg) every 6 hours as needed for pain and fever control. Please go to local pharmacy or drugstore and obtain Preparation H or lidocaine cream and apply as directed. Please return to the emergency department if your symptoms change or worsen. Please follow with your primary care physician for further outpatient evaluation and management. Print Language: Japanese Disposition Disposition: Home, Self Care Discharge Date/Time: 06/21/24 23:26
[2024-06-21 23:20] VITALS: BP 145/78; PULSE 89; RESP 18; TEMP 36.9; O2SAT 96
== END 2024-06-21 23:26 | disposition home or self-care (01) ==
LOC: ED 23:24
PROVIDERS: Emergency Provider Emergency Medicine; PCP Internal Medicine; Visit Provider Emergency Medicine
DX: K62.5 Hemorrhage of anus and rectum (principal); I10 Essential (primary) hypertension; E78.5 Hyperlipidemia, unspecified; F17.210 Nicotine dependence, cigarettes, uncomplicated; F12.90 Cannabis use, unspecified, uncomplicated
CPT/HCPCS: 99282

== ENCOUNTER → 2024-10-24 | Outpatient (CLI) | payer MEDICAID, SELFPAY | END | disposition home or self-care (01) | LOC: LABSPEC 15:21 | PROVIDERS: PCP Internal Medicine; Visit Provider Physician Assistant | DX: R10.30 Lower abdominal pain, unspecified (principal) | CPT/HCPCS: 87086 ==

== ENCOUNTER → 2024-11-10 | Outpatient (CLI) | payer MEDICAID, SELFPAY ==
--- NOTE | 2024-11-10 07:31 | US_ITS ---
PROCEDURE: POST VOID RESIDUAL BLADDER 11/10/2024 REASON FOR EXAM: INCOMPLETE EMPTYING TECHNIQUE: Procedure Code: USPVU Modality: US Procedure: POST VOID RESIDUAL BLADDER COMPARISON: none FINDINGS: No UVJ calculi are noted. Distended urinary bladder to 309 mL. Post void residual of 165ml. No urinary bladder wall thickening. No urinary bladder mass or stone noted. No fulton catheter noted. US/Post Void Residual Bladder IMPRESSION: Post void residual of 165ml reflecting urinary retention. No urinary bladder wall thickening. Reading Location: [id number]
--- OUTSIDE RECORDS SUMMARY | 2024-11-10 07:32 | XMS RPT_ITS | CCD ---
Author Organization [facility] Care Team Providers Care Ccie Name Role Phone Romie López MD Primary Care Provider Jaya CORDOVA, Beba Unavailable Patience Mireles Primary Care Provider Paige TELEHEALTH CASE MANAGERBrian MAN Primary Care Provider [facility] Primary Care Pro vider Guera Espinoza Attending Provider Unavailable Paige LAW EXAMINER, LAW EXAMINER-Joe Brandon Primary Care Provider Dr. Jas Vergara Emergency Provider Dr. Maria Mathews Attending Provider Dr. Maria Mathews Admit Provider Dr. Maria Mathews Other Provider Dr. Jodie Canas Other Provider Dr. Jb Mcbride Attending Provider Jaya CORDOVA, Beba Unavailable Paige TELEHEALTH CASE MANAGER.Brian SHAH Primary Care Provider Hay Rader MD Primary Care Provider Paige TELEHEALTH CASE MANAGERBrian MAN Unavailable Paige TELEHEALTH CASE MANAGER.Brian SHAH Primary Care Provider JOSEPH GAN Primary Care Physician Paige TELEHEALTH CASE MANAGER.CRUISE DIRECTOR, Brian Primary Care Provider [phone] PAIGE TELEHEALTH CASE MANAGER-CRUISE DIRECTOR, BRIAN CHRISTOPHER Primary Care Physicia n SHARMIN SONI, DR EMANUEL Mccall Attending Unavai lable PAIGE TELEHEALTH CASE MANAGER-CRUISE DIRECTOR, BRIAN CHRISTOPHER Primary Care Unava ilable WILDA TELEHEALTH CASE MANAGER-CRUISE DIRECTOR, JOSEPH Attending Unavai lable WILDA TELEHEALTH CASE MANAGER-CRUISE DIRECTOR, JOSEPH Primary Care Unavai lable WILDA TELEHEALTH CASE MANAGER-CRUISE DIRECTOR, JOSEPH Attending Unavai lable WILDA TELEHEALTH CASE MANAGER-CRUISE DIRECTOR, JOSEPH Primary Care Unavai lable RYAN SONI, AMERICO Escobar Attending Unavail able WILDA TELEHEALTH CASE MANAGER-CRUISE DIRECTOR, JOSEPH Primary Care Unavai lable PAIGE, BRIAN Primary Care Unavailable Rene SONI, Romie Kaufman Primary Care Provider PAIGE, BRIAN Primary Care Unavailable PAIGE, BRIAN Primary Care Unavailable PAIGE, BRIAN Primary Care Unavailable PAIGE, BRIAN Referring Unavailable PAIGE, BRIAN Primary Care Unavailable PAIGE, BRIAN Referring Unavailable PAIGE, BRIAN Primary Care Unavailable QUEENER, CLAUDINE Referring Unavailable NBA MICHELE Attending Unavailable PAIGE, BRIAN Primary Care Unavailable QUEENER, CLAUDINE Attending Unavailable PAIGE, BRIAN Primary Care Unavailable PAIGE, BRIAN Primary Care Unavailable PAIGE, BRIAN Attending Unavailable PAIGE, BRIAN Primary Care Unavailable PAIGE, BRIAN Attending Unavailable PAIGE, BRIAN Primary Care Unavailable MUKHDOMI, THERESE Attending Unavailable PAIGE, BRIAN Primary Care Unavailable PAIGE, BRIAN Attending Unavailable PAIGE, BRIAN Primary Care Unavailable PAIGE, BRIAN Primary Care Unavailable MUKHDOMI, THERESE Attending Unavailable PAIGE, BRIAN Primary Care Unavailable STACEY JEAN-BAPTISTE Referring Unavailable PAIGE, BRIAN Primary Care Unavailable PAIGE, BRIAN Referring Unavailable PAIGE, BRIAN Primary Care Unavailable PAIGE, BRIAN Attending Unavailable PAIGE, BRIAN Primary Care Unavailable VENCES, DB Attending Unavailable PAIGE, BRIAN Primary Care Unavailable VENCES, DB Referring Unavailable PAIGE, BRIAN Primary Care Unavailable PAIGE, BRIAN Primary Care Unavailable PAIGE, BRIAN Referring Unavailable PAIGE, BRIAN Primary Care Unavailable QUEENER, CLAUDINE Referring Unavailable NAN PERDOMO Attending Unavailable PAIGE, BRIAN Primary Care Unavailable QUEENER, CLAUDINE Attending Unavailable Paige LAW EXAMINER-C, Brian Primary Care Provider Dr. Brayden Cruz DO Emergency Provider Dr. Brayden Cruz DO Attending Provider Paige LAW EXAMINER-C, Brian Referring Provider [phone] Harsha Cabrera Attending Provider Brando Pulido Attending Provider Paige LAW EXAMINER-C, Brian Primary Care Provider Harsha Cabrera Attending Unavailable Paige LAW EXAMINER, Brian Primary Care Unavailable Paige LAW EXAMINER, Brian Primary Care Unavailable Paige LAW EXAMINER, Brian Attending Unavailable Paige LAW EXAMINER, Brian Referring Unavailable Harsha Cabrera Attending Unavailable Paige LAW EXAMINER, Brian Primary Care Unavailable Claudia Mayo Attending Unavailable Paige LAW EXAMINER, Brian Referring Unavailable Paige LAW EXAMINER, Brian Primary Care Unavailable Harsha Cabrera Attending Unavailable Paige LAW EXAMINER, Brian Referring Unavailable Paige LAW EXAMINER, Brina Primary Care Unavailable Paige LAW EXAMINER, Brian Referring Unavailable Paige LAW EXAMINER, Brian Primary Care Unavailable Brando Pulido Attending Unavailable Paige LAW EXAMINER, Brian Attending Unavailable Paige LAW EXAMINER, Brian Referring Unavailable Paige LAW EXAMINER, Brian Primary Care Unavailable Ba Solis Attending Unavailable Paige LAW EXAMINER, Brian Primary Care Unavailable Paige LAW EXAMINER, Brian Primary Care Unavailable Brayden Cruz Attending Unavailable Allergies Allergy Classification Reported Allergen(s) Allergy Type Date of Onset Reaction(s) Facility Penicillins (antibiotic) (1 source) Penicillins Drug Allergy 09-06-19 15 Unknown, [facility] Work Phone: (9 sources) Penicillins; Translations: [penicillins] Propensity to adverse reactions to drug 09-06-19 15 Unknown [facility] Work Phone: (20 sources) Penicillins Propensity to adverse reactions to drug 09-06-19 15 Unknown, [facility] Work Phone: (6 sources) Penicillins Allergy to substance 03-05-19 23 [facility] (7 sources) Sulfamethoxazole / Trimethoprim; Translations: [SULFAMETHOXAZOLE-T RIMETHOPRIM] Drug Allergy 01-13-20 24 Intolerance [facility] (1 source) Penicillins Drug allergy (disorder) 10-25-19 25 [facility] Repository Medications Current Medications Medication Drug Class(es) Dates Sig (Normalized) Sig (Original) azithromycin 250 mg oral tablet (2 sources) Macrolide Antimicrobial Start: 07-14-2022 End: 07-19-2022 take 2 tablets by mouth once daily, then take 1 tablet by mouth once daily azithromycin (ZITHROMAX) 250 mg tablet Take 2 tablets by mouth once daily for 1 day, THEN 1 tablet once daily for 4 days. 6 tablet 0 07/14/2022 07/19/2022 Active Comment on above: Take 2 tablets by mo ut once daily for 1 day, THEN 1 tablet once daily for 4 days. benzonatate 100 mg oral capsule (1 source) Non-narcotic Antitussive Start: 12-20-2021 End: 12-30-2021 take 2 capsules by mouth three times daily as needed benzonatate (TESSALON PERLE) 100 mg capsule Indications: Suspected COVID-19 virus infection Take 2 capsules by mouth three times daily as needed for up to 10 days. 60 capsule 0 12/20/2021 12/30/2021 Active Comment on above: Take 2 capsules by [facility] three times daily as needed for up to 10 days. cholecalciferol 0.05 mg oral capsule (20 sources) Vitamin D Start: 03-04-2022 End: 06-15-2023 take 1 capsule by mouth once daily Cholecalciferol, Vitamin D3, 50 mcg (2,000 unit) cap Indications: Vitamin D deficiency Take 1 capsule by mouth once daily. 90 capsule 3 06/15/2023 Active Comment on above: Take 1 capsule by mo [facility] once daily. CPAP/BIPAP/OTHER (20 sources) Start: 11-22-2023 End: 04-08-2051 CPAP/BIPAP/OTHER Indications: MICA (obstructive sleep apnea) Type .CPAPSettings into a note to see current settings/supplies /DME information. 1 Each 11/22/2023 04/08/2051 Active Start: 06-15-2023 End: 11-22-2023 CPAP/BIPAP/OTHER Indications : MICA (obstructive sleep apnea) Type .CPAPSettings into a note to see current settings/supplies/DME information. 1 Each 06/15/2023 11/22/2023 Discontinued Start: 06-15-2023 End: 10-30-2050 CPAP/BIPAP/OTHER Indications : MICA (obstructive sleep apnea) Type .CPAPSettings into a note to see current settings/supplies/DME information. 1 Each 06/15/2023 10/30/2050 Active Start: 06-15-2023 End: 10-30-2050 CPAP/BIPAP/OTHER Indications : MICA (obstructive sleep apnea) Type .CPAPSettings into a note to see current settings/supplies/DME information. 1 Each 0 06/15/2023 10/30/2050 Active dicyclomine hydrochloride 10 mg oral capsule (1 source) Anticholinergic Start: 07-05-2021 take 20 mg by mouth every six hours as needed Dicyclomine Active 20 MG PO EVERY 6 HOURS NEEDED July 05, 2021 2:26am docusate sodium 50 mg oral capsule (1 source) Start: 07-12-2023 End: 07-26-2023 docusate sodium 50 mg oral capsule Dose : 50 mg = 1 cap(s), Oral, BID, PRN as needed for constipation, # 28 cap(s), 0 Refill(s) Start Date: 07/12/23 Stop Date: 07/26/23 Status: Ordered DULoxetine 30 mg delayed release oral capsule (8 sources) Serotonin and Norepinephrine Reuptake Inhibitor Start: 12-24-2023 take 1 capsule by mouth once daily DULoxetine (CYMBALTA) 30 mg capsule Indications: Type 2 diabetes mellitus with diabetic polyneuropathy, without long-term current use of insulin (HCC) , Anxiety and depression Take 1 capsule by mouth once daily. 30 capsule 2 12/24/2023 Active Ipratropium [place] 21 mcg (0.03 %) spray,non-aerosol (2 sources) Start: 10-19-2024 Ipratropium [place] 21 mcg (0.03 %) spray,non-aerosol Active 2 NMA INTRANASAL 2 to 3 times per day as needed for postnasal drainage 30 0 October 19, 2024 12:00am administer into each nostril iv contrast (will be provided with radiology test) (2 sources) Start: 03-03-2022 End: 03-04-2022 iv contrast (will be provided with radiology test) Indications: Lymphadenopathy, inguinal , Intra-abdominal and pelvic swelling, mass and lump, unspecified site , Left lower quadrant abdominal pain CT ABD/PEL -Inject, intravenously, once for 1 dose.No IV access, insert saline lock prior to the beginning of sedation, infusion, injection of imaging exam. Discontinue saline lock post exam. If Pt. has a central line or IVAD, may access for administration according to line specific nursing protocol. Once exam is complete flush line and de-access according to line specific nursing protocol in the CT contrast administration guidelines link. 1 Each 0 03/03/2022 03/04/2022 Active Comment on above: CT ABD/PEL -Inject, intravenously, once for 1 dose.No IV access, insert saline lock prior to the beginning of sedation, infusion, injection of imaging exam. Discontinue saline lock post exam. If Pt. has a central line or IVAD, may access for administration according to line specific nursing protocol. Once exam is complete flush line and de-access according to line specific nursing protocol in the CT contrast administration guidelines link. metFORMIN hydrochloride 500 mg oral tablet (9 sources) Biguanide Start: 12-24-2023 End: 01-13-2024 take 1 tablet by mouth twice daily at mealtime metFORMIN (GLUCOPHAGE) 500 mg tablet Indications: Type 2 diabetes mellitus with diabetic polyneuropathy, without long-term current use of insulin (HCC) Take 1 tablet by mouth two times a day with meals. 60 tablet 5 01/13/2024 Active methylPREDNISolone (1 source) Corticosteroid Start: 07-15-2022 End: 07-21-2022 methylPREDNISolone (MEDROL, GIULIA,) 4 mg Dose-Pack Indications: Other non-recurrent acute nonsuppurative otitis media, unspecified laterality Follow dosing instructions, take with food. 21 tablet 0 07/15/2022 07/21/2022 Active Comment on above: Follow dosing instru ctions, take with food. ondansetron 4 mg disintegrating oral tablet (1 source) Serotonin-3 Receptor Antagonist Start: 07-05-2021 take 8 mg by mouth every eight hours as needed Ondansetron Active 8 MG PO EVERY 8 HOURS NEEDED July 05, 2021 2:26am polyethylene glycol 3350 01049 mg powder for oral solution (1 source) Osmotic Laxative Start: 07-12-2023 End: 07-22-2023 take 17 doses by mouth twice daily as needed for constipation MiraLax oral powder for reconstitution Dose : 17 gram(s) =, Oral, BID, PRN Constipation, X 10 day(s), # 500 gram(s), 0 Refill(s), 07/22/23 7:16:00 PM EDT Start Date: 07/12/23 Stop Date: 07/22/23 Status: Ordered polyethylene glycol 3350 432914 mg / potassium chloride 2970 mg / sodium bicarbonate 6740 mg / sodium chloride 5860 mg / sodium sulfate 22407 mg powder for oral solution (3 sources) Osmotic Laxative Start: 08-02-2023 End: 08-02-2023 peg 3350-Electrolytes (GOLYTELY) 236-22.74-6.74 -5.86 gram suspension Indications: Colon cancer screening Take 4,000 mL by mouth one time only for 1 dose. Refer to printed prep instructions from your provider. 4000 mL 0 08/02/2023 08/02/2023 Active Start: 06-28-2023 End: 06-28-2023 peg 3350-Electrolytes (GOLYT LENIN) 236-22.74-6.74 -5.86 gram suspension Take 4,000 mL by mouth one time only for 1 dose. 4000 mL 0 06/28/2023 06/28/2023 Start: 04-20-2023 End: 04-20-2023 peg 3350-Electrolytes (GOLYT LENIN) 236-22.74-6.74 -5.86 gram suspension Indications: Colon cancer screening Take 4,000 mL by mouth one time only for 1 dose. Refer to printed prep instructions from your provider. 4000 mL 0 04/20/2023 04/20/2023 Comment on above: Take 4,000 mL by glenys th one time only for 1 dose. Refer to printed prep instructions from your provider. predniSONE 20 mg oral tablet (2 sources) Start: 3 End: 3 take 2 tablets by mouth once daily predniSONE (DELTASONE) 20 mg tablet Indications: ETD (Eustachian tube dysfunction), left Take 2 tablets by mouth once daily for 5 days. 10 tablet 0 04/07/2022 04/12/2022 Active Start: 05-13-2020 End: 05-25-2020 predniSONE (DELTASONE) 10 mg tablet Indications: Dermatitis Take 4 tabs daily x 3 days, then 3 tabs x 3 days, 2 tabs x 3 days, then 1 tab x3 days with food. 30 tablet 05/13/2020 05/25/2020 Comment on above: Take 2 tablets by mo [facility] once daily for 5 days. triamcinolone acetonide 1 mg/ml topical cream (1 source) Corticosteroid Start: 03-23-19 End: 03-30-19 triamcinolone acetonide (KENALOG) 0.1 % cream Apply 1 application to affected area three times daily for 7 days. Apply sparingly to area for rash/itching. 80 g 0 03/23/2022 03/30/2022 Active Comment on above: Apply 1 application to affected area three times daily for 7 days. Apply sparingly to area for rash/itching. valACYclovir 1000 mg oral tablet (1 source) Herpesvirus Nucleoside Analog DNA Polymerase Inhibitor, Herpes Simplex Virus Nucleoside Analog DNA Polymerase Inhibitor, Herpes Zoster Virus Nucleoside Analog DNA Polymerase Inhibitor Start: 03-23-19 End: 03-30-19 take 1 tablet by mouth three times daily valACYclovir (VALTREX) 1 gram Take 1 tablet by mouth three times daily for 7 days. 21 tablet 0 03/23/2022 03/30/2022 Active Comment on above: Take 1 tablet by [facility] three times daily for 7 days. VITAMIN D3 50 MCG (2,000 UNIT) CAPSULE (1 source) Start: 07-12-19 VITAMIN D3 50 MCG (2,000 UNIT) CAPSULE VITAMIN D3 50 MCG (2,000 UNIT) CAPSULE, 0 Refill(s), 77.7 Start Date: 07/12/23 Status: Ordered Completed/Discontinued Medications Medication Drug Class(es) Dates Sig (Normalized) Sig (Original) amLODIPine 5 mg oral tablet (20 sources) Dihydropyridine Calcium Channel Nora Start: 06-15-2023 End: 2023 take 1 tablet by mouth once daily amLODIPine (NORVASC) 5 mg tablet Take 1 tablet by mouth once daily. 90 tablet 1 06/15/2023 2023 Discontinued Start: 04-01-2022 End: 04-20-2022 take 1 tablet by mouth once daily amLODIPine (NORVASC) 10 mg tablet Indications: Primary hypertension Take 1 tablet by mouth once daily. 0 04/01/2022 04/20/2022 Discontinued Start: 03-05-2022 End: 08-21-2024 take 2 tablets by mouth once daily Amlodipine 5 mg tablet Discontinued 10 mg PO DAILY 30 2 March 05, 2022 1:38pm August 21, 2024 8:01am Start: 03-05-2022 take 10 mg by mouth once daily Amlodipine Active 10 MG PO DAILY March 05, 2022 12:38pm Start: 03-03-2022 End: 04-01-2022 take 1 tablet by mouth once daily Amlodipine 5 mg tablet Discontinued 5 mg PO DAILY March 05, 2022 1:00am March 05, 2022 1:38pm Comment on above: Take 1 tablet by glen[facility] once daily. atorvastatin 20 mg oral tablet (20 sources) HMG-CoA Reductase Inhibitor Start: End: take 1 tablet by mouth once daily atorvastatin (LIPITOR) 20 mg tablet Take 1 tablet by mouth once daily. 90 tablet 3 06/15/2023 2023 Discontinued Start: 03-05-2022 End: 08-21-2024 take 1 tablet by mouth once daily Atorvastatin 40 mg tablet Discontinued 40 mg PO DAILY 30 0 March 05, 2022 1:00am August 21, 2024 8:01am Comment on above: Take 1 tablet by glenys once daily. 24 hr buPROPion hydrochloride 300 mg extended release oral tablet (20 sources) Aminoketone Start: End: take 1 tablet by mouth once daily buPROPion XL (WELLBUTRIN XL) 300 mg 24 hr tablet Indications: Tobacco use , Moderate episode of recurrent major depressive disorder (HCC) Take 1 tablet by mouth once daily. 90 tablet 1 04/01/2022 06/15/2023 Discontinued Start: 03-03-2022 End: 08-21-2024 take 1 tablet by mouth once daily Bupropion Hcl 150 mg tablet extended release 24 hr Discontinued 150 mg PO DAILY March 05, 2022 1:00am August 21, 2024 8:01am Start: 02-17-2021 End: 03-03-2022 buPROPion SR (WELLBUTRIN SR) 150 mg 12 hr tablet Indications: Depression, unspecified depression type , Tobacco abuse One tablet daily X 3 days; then increase to twice daily. Stop smoking on day 5-7. 60 tablet 1 02/17/2021 03/03/2022 Discontinued Comment on above: One tablet daily X 3 days; then increase to twice daily. Stop smoking on day 5-7. Take 1 tablet by glenys th once daily. cephalexin 500 mg oral capsule (10 sources) Cephalosporin Antibacterial Start: 024 End: take 1 capsule by mouth every six hours Cephalexin 500 mg capsule Discontinued 500 mg PO EVERY 6 HOURS January 02, 2024 1:00am August 21, 2024 8:01am ciprofloxacin 500 mg oral tablet (3 sources) Quinolone Antimicrobial Start: End: take 1 tablet by mouth twice daily Ciprofloxacin Hcl 500 mg tablet Discontinued 500 mg PO TWICE A DAY 10 August 21, 2024 12:00am October 19, 2024 5:20pm diphenhydrAMINE hydrochloride 25 mg oral capsule (1 source) Histamine-1 Receptor Antagonist Start: End: take 2 capsules by mouth every six hours as needed diphenhydrAMINE (BENADRYL) 25 mg capsule Take 2 capsules by mouth every 6 hours as needed. 20 capsule 03/31/2020 10/16/2020 Discontinued (Discontinued by Patient) fluticasone propionate 0.05 mg/actuat metered dose nasal spray (14 sources) Corticosteroid Start: 023 End: take 2 spray(s) by mouth once daily fluticasone (FLONASE) 50 mcg/actuation nasal spray Indications: ETD (Eustachian tube dysfunction), left Use 2 Sprays in each nostril once daily. Rinse mouth after use. 1 Each 1 04/07/2022 06/15/2023 Discontinued Comment on above: Use 2 Sprays in each nostril once daily. Rinse mouth after use. hydrocortisone 25 mg/ml topical cream (14 sources) Corticosteroid Start: 025 End: Hydrocortisone (Anusol-Hc) 2.5 % cream with perineal applicator Discontinued 1 NMA RC Q12H as needed for hemorrhoids 30 0 June 21, 2024 12:00am August 21, 2024 8:01am Start: 02-17-2022 End: 04-01-2022 hydrocortisone (ANUSOL-HC) 2 5 mg suppository Indications: Internal hemorrhoids 1 Suppository by RECTAL route twice daily as needed (hemorrhoids/rectal pain). 60 Each 03/03/2022 04/01/2022 Discontinued Start: 02-17-2021 hydrocortisone (ANUSOL-HC) 25 mg suppository Indications: Internal hemorrhoids 1 Suppository by RECTAL route twice daily as needed (hemorrhoids/rectal pain). 20 Each 3 02/17/2021 Active Comment on above: 1 Suppository by REC MENG route twice daily as needed (hemorrhoids/rectal pain). lisinopril 10 mg oral tablet (17 sources) Angiotensin Converting Enzyme Inhibitor Start: 04-05-2023 End: 04-19-2023 lisinopril 10 mg oral tablet Dose : 10 mg = 1 tab(s), Oral, Daily, # 14 tab(s), 0 Refill(s), Pharmacy: [id number], Hypertension, 177.2, cm, 04/05/23 7:38:00 EST, Height, kg, 04/05/23 7:38:00 EST, Dosing Weight Start Date: 04/05/23 Stop Date: 04/19/23 Status: Ordered Start: 09-10-2021 End: 11-24-2021 take 2 tablets by mouth once daily Lisinopril 5 mg tablet Discontinued 10 mg PO DAILY September 10, 2021 9:58am November 24, 2021 1:05pm Start: 09-10-2021 End: 11-24-2021 take 10 mg by mouth once daily Lisinopril Discontinued 10 MG PO DAILY September 10, 2021 8:58am November 24, 2021 12:05pm Start: 07-05-2021 End: 09-10-2021 take 1 tablet by mouth once daily Lisinopril 5 mg tablet Discontinued 5 mg PO DAILY July 05, 2021 12:00am September 10, 2021 10:00am pantoprazole 40 mg delayed release oral tablet (19 sources) Proton Pump Inhibitor Start: 02-17-2022 End: 06-15-2023 take 1 tablet by mouth once daily pantoprazole DR (PROTONIX) 40 mg tablet Take 1 tablet by mouth once daily. 30 tablet 0 02/17/2022 06/15/2023 Discontinued Start: 07-05-2021 take 1 tablet by glen[facility] once daily Pantoprazole (Protonix) 40 mg tablet,delayed release (DR/EC) Active 40 MG PO DAILY July 05, 2021 2:26am Comment on above: Take 1 tablet by glenys th once daily. sulfamethoxazole 800 mg / trimethoprim 160 mg oral tablet (5 sources) Dihydrofolate Reductase Inhibitor Antibacterial, Sulfonamide Antimicrobial Start: 12-21-19 End: 12-28-19 take 1 tablet by mouth twice daily sulfamethoxazole-tr imethoprim (BACTRIM DS) 800-160 mg per tablet Take 1 tablet by mouth two times a day for 7 days. 14 tablet 12/21/2023 12/24/2023 Discontinued Start: 01-19-2023 End: 01-29-2023 take 1 tablet by mouth twice daily sulfamethoxazole-trimethoprim (BACTRIM D S) 800-160 mg per tablet Indications: Pelvic pain Take 1 tablet by mouth two times a day for 10 days. 20 tablet 0 01/19/2023 01/29/2023 Active Start: 05-22-2022 End: 05-25-2022 take 1 tablet by mouth twice daily sulfamethoxazole-trimethoprim (BACTRIM D S) 800-160 mg per tablet Indications: Urinary tract infection with hematuria, site unspecified Take 1 tablet by mouth twice daily for 3 days. 6 tablet 0 05/22/2022 05/25/2022 Active Comment on above: Take 1 tablet by glen[facility] th twice daily for 3 days. Take 1 tablet by glenys th two times a day for 10 days. varenicline 1 mg oral tablet (20 sources) Partial Cholinergic Nicotinic Agonist Start: End: take 1 tablet by mouth twice daily at mealtime varenicline (CHANTIX CONTINUING MONTH BOX) 1 mg tablet Take 1 tablet by mouth two times a day with meals. Patient should start on July 06, 2023. 60 tablet 2 07/06/2023 2023 Discontinued Start: 07-06-2023 take 1 tablet by gelnys th twice daily at mealtime varenicline (CHANTIX CONTINUING MONTH BOX) 1 mg tablet Take 1 tablet by mouth two times a day with meals. Patient should start on July 06, 2023. 60 tablet 2 07/06/2023 Active Start: 07-06-2023 take 1 tablet by glenys th twice daily at mealtime varenicline (CHANTIX CONTINUING MONTH BOX) 1 mg tablet Take 1 tablet by mouth two times a day with meals. Patient should start on July 06, 2023. 60 tablet 2 07/06/2023 Active Start: 07-06-2023 take 1 tablet by glenys th twice daily at mealtime varenicline (CHANTIX CONTINUING MONTH BOX) 1 mg tablet Take 1 tablet by mouth two times a day with meals. Patient should start on July 06, 2023. 60 tablet 2 07/06/2023 Active Start: 06-15-2023 End: 2023 take 1 tablet by mouth once daily varenicline (CHANTIX STARTING MONTH BOX) 0.5 mg (11)- 1 mg (42) tablet Take 0.5 mg by mouth once daily on Days 1 through 3, THEN 0.5 mg twice daily on Days 4 through 7, THEN 1 mg twice daily on Day 8 and thereafter 53 tablet 06/15/2023 2023 Discontinued Problems Active Problems Problem Classification Problem Date Documented Da te Episodic/Chronic Abdominal pain (6 sources) Left lower quadrant pain; Translations: [Left lower quadrant pain] Onset: 10-24-2024 Episodic Anal and rectal conditions (1 source) Rectal pain; Translations: [Other specified diseases of anus and rectum] 08-10-2023 Episodic Anxiety disorders (13 sources) Anxiety; Translations: [Anxiety disorder, unspecified] Onset: 12-10-2023 12-07-2023 Chronic Coronary atherosclerosis and other heart disease (4 sources) Acute coronary syndrome; Translations: [Acute ischemic heart disease, unspecified] 03-05-2022 Chronic Delirium, dementia, and amnestic and other cognitive disorders (1 source) Dementia; Translations: [Unspecified dementia without behavioral disturbance] Chronic Diabetes mellitus with complications (13 sources) Polyneuropathy due to type 2 diabetes mellitus; Translations: [Type 2 diabetes mellitus with diabetic polyneuropathy] Onset: 12-24-2023 12-24-2023 Chronic Diabetes mellitus without complication (4 sources) Glycosuria; Translations: [Glycosuria] Episodic Disorders of lipid metabolism (20 sources) Hypercholesterolemia; Translations: [Pure hypercholesterolemia, unspecified] Onset: 05-22-2022 Chronic Esophageal disorders (1 source) Gastro-esophageal reflux disease with esophagitis; Translations: [Gastroesophageal reflux disease with esophagitis without hemorrhage] Chronic Esophageal disorders (7 sources) Other specified disorders of esophagus; Translations: [Edema of esophagus] 10-23-2019 Episodic Essential hypertension (20 sources) Essential hypertension; Translations: [Essential (primary) hypertension] Onset: 03-03-2022 Chronic Gastritis and duodenitis (7 sources) Acute hemorrhagic gastritis; Translations: [Acute gastritis with bleeding] 07-13-2021 Episodic Genitourinary congenital anomalies (20 sources) Multiple renal cysts; Translations: [Congenital multiple renal cysts] Onset: 04-01-2022 Chronic Genitourinary symptoms and ill-defined conditions (12 sources) Vesical tenesmus; Translations: [Vesical tenesmus] Onset: 08-21-2024 07-12-2023 Episodic Immunizations and screening for infectious disease (4 sources) Suspected disease caused by 2019-nCoV; Translations: [Suspected COVID-19 virus infection] Onset: 11-22-2023 Episodic Lymphadenitis (2 sources) Inguinal lymphadenopathy; Translations: [Localized enlarged lymph nodes] Episodic Malaise and fatigue (3 sources) Fatigue; Translations: [Chronic fatigue, unspecified] Onset: 2023 2023 Chronic Mood disorders (20 sources) Recurrent major depressive episodes, moderate ; Translations: [Major depressive disorder, recurrent, moderate] Onset: 04-01-2022 Chronic Mood disorders (1 source) Mood disorders; Translations: [Anxiety and depression] Onset: 12-10-2023 Noninfectious gastroenteritis (7 sources) Gastroenteritis; Translations: [Noninfective gastroenteritis and colitis, unspecified] 07-13-2021 Episodic Nonspecific chest pain (8 sources) Chest pain; Translations: [Chest pain, unspecified] 03-05-2022 Episodic Nutritional deficiencies (20 sources) Vitamin D deficiency; Translations: [Vitamin D deficiency, unspecified] Onset: 06-15-2023 Chronic Open wounds of head; neck; and trunk (7 sources) Cut of back; Translations: [Laceration without foreign body of unspecified back wall of thorax without penetration into thoracic cavity, initial encounter] 09-05-2018 Episodic Other aftercare (13 sources) Patient encounter status; Translations: [Encounter for therapeutic drug level monitoring] Episodic Other connective tissue disease (1 source) Pain in left arm; Translations: [Pain in left arm] Onset: 05-01-2023 Episodic Other connective tissue disease (3 sources) Pain in both feet; Translations: [Pain in right foot] 11-22-2023 Episodic Other connective tissue disease (1 source) Pain in right foot; Translations: [Bilateral foot pain] Onset: 11-22-2023 Episodic Other connective tissue disease (1 source) Pain in left foot; Translations: [Bilateral foot pain] Onset: 11-22-2023 Episodic Other diseases of kidney and ureters (1 source) Acquired renal cystic disease; Translations: [Cyst of kidney, acquired] Episodic Other ear and sense organ disorders (6 sources) Hearing difficulty; Translations: [Unspecified hearing loss, bilateral] Chronic Other ear and sense organ disorders (2 sources) Unspecified hearing loss, bilateral; Translations: [Hearing impaired person, bilateral] Onset: 08-24-2023 Chronic Other gastrointestinal disorders (12 sources) Constipation; Translations: [Constipation, unspecified] 09-10-2021 Episodic Other gastrointestinal disorders (2 sources) Finding of abdominopelvic segment of trunk; Translations: [Intra-abdominal and pelvic swelling, mass and lump, unspecified site] Episodic Other gastrointestinal disorders (1 source) Constipation, unspecified; Translations: [Constipation, unspecified] Onset: 07-12-2023 Episodic Other gastrointestinal disorders (1 source) Anismus; Translations: [Outlet dysfunction constipation] 07-12-2023 Episodic Other hereditary and degenerative nervous system conditions (5 sources) Impaired cognition; Translations: [Mild cognitive impairment, so stated] Chronic Other hereditary and degenerative nervous system conditions (1 source) Mild cognitive impairment, so stated; Translations: [Mild cognitive impairment] Onset: 08-24-2023 Chronic Other injuries and conditions due to external causes (1 source) Puncture wound - injury; Translations: [Other injury of unspecified body region, initial encounter] 09-20-2023 Episodic Other liver diseases (20 sources) Steatosis of liver; Translations: [Fatty (change of) liver, not elsewhere classified] Onset: 06-15-2023 06-15-2023 Chronic Other lower respiratory disease (2 sources) Snoring; Translations: [Snoring] Episodic Other screening for suspected conditions (not mental disorders or infectious disease) (2 sources) Encounter for screening for eye and ear disorders; Translations: [Encounter for screening for malignant neoplasm of prostate] Onset: 03-23-2023 Episodic Other skin disorders (1 source) Eruption; Translations: [Rash and other nonspecific skin eruption] Episodic Other skin disorders (1 source) Epidermoid cyst of skin of scalp; Translations: [Epidermal cyst] Episodic Other upper respiratory infections (2 sources) Acute upper respiratory infection; Translations: [Acute upper respiratory infection, unspecified] 10-19-2024 Episodic Otitis media and related conditions (3 sources) Dysfunction of left eustachian tube; Translations: [Other specified disorders of Eustachian tube, left ear] Episodic Pancreatic disorders (not diabetes) (2 sources) Acute pancreatitis; Translations: [Acute pancreatitis without necrosis or infection, unspecified] Onset: 01-13-2024 01-13-2024 Episodic Residual codes; unclassified (2 sources) Sleep apnea; Translations: [Sleep apnea, unspecified] Chronic Residual codes; unclassified (20 sources) Obstructive sleep apnea syndrome; Translations: [Obstructive sleep apnea (adult) (pediatric)] Onset: 06-15-2023 06-15-2023 Chronic Residual codes; unclassified (1 source) Sleep apnea, unspecified; Translations: [Sleep apnea, unspecified type] Onset: 12-10-2023 Chronic Residual codes; unclassified (2 sources) Obstructive sleep apnea (adult) (pediatric); Translations: [MICA (obstructive sleep apnea)] Onset: 06-15-2023 Chronic Residual codes; unclassified (3 sources) Amnesia; Translations: [Other amnesia] Episodic Residual codes; unclassified (1 source) Noncompliance with medication regimen; Translations: [Patient's other noncompliance with medication regimen for other reason] Onset: 05-01-2023 Episodic Residual codes; unclassified (2 sources) Other amnesia; Translations: [Memory loss] Onset: 03-03-2022 Episodic Screening and history of mental health and substance abuse codes (1 source) Encounter for screening examination for other mental health and behavioral disorders; Translations: [Encounter for screening examination for other mental health and behavioral disorders] Onset: 11-22-2023 Episodic Spondylosis; intervertebral disc disorders; other back problems (1 source) Acute low back pain; Translations: [Acute bilateral low back pain without sciatica] 05-13-2020 Episodic Unclassified (1 source) APPOINTMENT CANCELLED Unclassified (4 sources) Cognitive function finding (finding) 04-05-2023 Unclassified (4 sources) None (qualifier value) 06-01-2014 Unclassified (8 sources) Patient encounter status 04-05-2023 Viral infection (5 sources) Herpes zoster without complication; Translations: [Zoster without complications] Episodic Past or Other Problems Problem Classification Problem Date Documented Da te Episodic/Chronic Abdominal hernia (20 sources) Hernia of anterior abdominal wall; Translations: [Ventral hernia without obstruction or gangrene] Onset: 04-01-2022 Resolved: 05-22-2022 Episodic Biliary tract disease (20 sources) Polyp of gallbladder; Translations: [Cholesterolosis of gallbladder] Onset: 06-15-2023 06-15-2023 Episodic Gastrointestinal hemorrhage (1 source) Hemorrhage of anus and rectum; Translations: [Hemorrhage of anus and rectum] Onset: 06-27-2024 Episodic Hemorrhoids (20 sources) Internal hemorrhoids; Translations: [Other hemorrhoids] Onset: 03-03-2022 Episodic Other aftercare (1 source) Encounter for therapeutic drug level monitoring; Translations: [Encounter for therapeutic drug monitoring] Onset: 06-12-2023 Episodic Other and unspecified benign neoplasm (20 sources) History of polyp of colon; Translations: [Personal history of colonic polyps] Onset: 06-07-2017 09-11-2019 Episodic Other lower respiratory disease (1 source) Snoring; Translations: [Snoring] Onset: 08-24-2023 Episodic Residual codes; unclassified (20 sources) Tobacco use and exposure - finding; Translations: [Tobacco use] Onset: 05-12-2017 05-12-2017 Episodic Residual codes; unclassified (20 sources) Memory impairment; Translations: [Other amnesia] Onset: 03-03-2022 Episodic Residual codes; unclassified (1 source) Tobacco use; Translations: [Tobacco use] Onset: 05-12-2017 Episodic Urinary tract infections (8 sources) Urinary tract infectious disease; Translations: [Urinary tract infection, site not specified] Onset: 01-13-2024 Episodic Results Test Name Value Interpretation Reference Range Facility Urine Cultureon 10-25-2024 URC Culture exhibits no growth. Normal [facility] Comment on above: Performed By: #### M [id number] ####[facility] [id number] [place], [address] Urgent Care Visit Reporton 0 10-24-2024 Urgent Care Visit Report [facility] [address], [address] [place] [address] OFFICE VISIT Date of Service: 10/24/24 MR#: [id number] Acct: [id number] Name: EMMA VASQUEZ Rep #: [id number] : 1965 Provider: ISSAC Tucker Age/Sex: 59/M Location: [facility] Status: Signed Intake Vital Signs 08/21/24 08:03 10/24/24 13:13 Height 5 ft 11 in Weight: 170 lb BMI 23.7 BP 140/90 H 124/80 H Blood Pressure Location Lt brachial Position Sitting Sitting Respiration 12 18 Pulse 86 86 Pulse Source Monitor Temp 98.1 F 98.1 F Temp Source Temporal Oral Pulse Oximetry (%) 99 97 Oxygen Delivery Method room air room air Intake Visit Reasons: concern for uti Chief Complaint: UTI Accompanied by: Self Allergies Penicillins Allergy (Verified 10/24/24 13:18) Hives Medications ???Medication ???Instructions ???Recorded ???Confirmed ???Type ipratropium bromide 21 mcg (0.03 2 spray intranasal BID-TID PRN 01/0210/24/24 Rx %) nasal spray postnasal drainage #30 mL Nurse's Note: Patient here for concerns for a UTI. Patient states that he has been having groin pain that is tight and tense for the last couple days. Patient also states that he has frequency as well. Patient states he has inner hemorrhoids and he is wondering if they are infected. Patient states that he is having burning with bowelmovements. [facility] Medical History (Updated 10/24/24 @ 13:32 by Harsha DAVENPORT PA) Urinary frequency Chest pain Tobacco use HLD (hyperlipidemia) Internal hemorrhoid, bleeding HTN (hypertension) Surgical History No history of previous surgery History of colonoscopy Family History (Updated 11/24/21 @ 13:04 by Guera Espinoza) Father Heart disease Diabetes Emphysema lung Mother Diabetes Uncle Colon cancer Social History (Updated 01/02/24 @ 10:[address] Ba Solis, DO) household members: significant other Smoking Status: Current every day smoker tobacco type: cigarettes alcohol intake: current substance use type: marijuana HPI HPI Chief Complaint: UTI Details: EMMA VASQUEZ, is a 59 M who presents to the office today for [facility] for approximately 2 to 3-day history of groin discomfort with tight/tense sensation as well as urinary frequency. He is unsure if he may have a urinary tract infection and therefore wanted to be screened for the same. Additionally, he notes having a longstanding history of chronic constipation with internal hemorrhoids as he describes, noting he has been constipated for the last several days as well. No complaints of fever, chills, sweats, lightheadedness/dizziness, nausea/vomiting, or chest pressure/shortness of breath/dyspnea on exertion. No kgnw-yov-[id number] medications taken to assist, though noting he had been informed to take MiraLAX in the past to assist when having constipation issues. He notes no other associated symptoms and no other alleviating/aggravating factors. ROS Const Constitutional: No other (As above) Exam Const General: cooperative, healthy appearing and no acute distress Orientation: alert and awake Chest Chest palpation inspection: normal inspection of the chest Resp Effort Inspection: normal respiratory effort and able to speak in complete sentences Auscultation: Bilateral: Clear to Auscultation Cardio Palpation: normal PMI Rate: regular rate Rhythm: regular rhythm Heart Sounds: S1 normal and S2 normal Pulses: radial pulses present GI Inspection: normal to inspection and visible herniation (ventral (trace clay/ easily reducible)) Palpation: soft Skin General: no rashes or lesions noted Neuro General: patient alert, patient awake and patient oriented x3 Cognition: normal cognition Speech: speech normal Psych Appearance: grossly normal Mental Status: mental status grossly normal Mood: congruent mood Affect: normal affect Speech and Movement: speech and movement normal Attitude: cooperative Results POC Urinalysis Dip (Clinic) Office Urine Color YELLOW Last Edit by Indu Coronado MA on 10/24/24 13:23 Office Urine Clarity Clear Last Edit by Indu Coronado MA on 10/24/24 13:23 Office Urine Glucose Negative Last Edit by Indu Coronado MA on 10/24/24 13:23 Office Urine Ketones Negative Last Edit by Indu Coronado MA on 10/24/24 13:23 Off Ur Spec [place] 1.010 Last Edit by Indu Coronado MA on 10/24/24 13:23 Office Urine pH 5.0 Last Edit by Indu Coronado MA on 10/24/24 13:23 Office Urine Bilirubin Negative Last Edit by Indu Coronado MA on 10/24/24 13:23 Office Urine Urobilinogen 0.2 mg/dL Last Edit by Indu Coronado MA on 10/24/24 13:23 Office Urine Blood Negative Last Edit by Indu Coronado MA on 10/24/24 13:23 (more content not included)... Normal [facility] Urgent Care Visit Reporton 0 10-19-2024 Urgent Care Visit Report [facility] [address], [address] [place] [address] OFFICE VISIT Date of Service: 10/19/24 MR#: [id number] Acct: [id number] Name: EMMA VASQUEZ Dada Rep #: [id number] : 1965 Provider: ISSAC Ulloa Age/Sex: 58/M Location[place] [facility] Status: Signed Intake Vital Signs 08/21/24 08:03 10/19/24 17:20 Height 5 ft 11 in Weight: 170 lb BMI 23.7 BP 140/90 H 132/74 H Blood Pressure Location Lt brachial Lt brachial Position Sitting Sitting Respiration 12 15 Pulse 86 62 Pulse Source Monitor NIBP Temp 98.1 F 98.2 F Temp Source Temporal Oral Pulse Oximetry (%) 99 94 Oxygen Delivery Method room air room air Intake Visit Reasons: COUGH, CONGESTION Chief 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 denies fever, FERNÁNDEZ, BA, ST. wants a lung check [facility] Medical History (Updated 10/19/24 @ 17:29 by Brando DAVENPORT, PA) Chest pain Tobacco use HLD (hyperlipidemia) Internal hemorrhoid, bleeding HTN (hypertension) Surgical History No history of previous surgery History of colonoscopy Family History (Updated 11/24/21 @ 13:04 by Guera Espinoza) Father Heart disease Diabetes Emphysema lung Mother Diabetes Uncle Colon cancer Social History (Updated 01/02/24 @ 10:[address] Ba Solis, DO) household members: significant other Smoking Status: Current every day smoker tobacco type: cigarettes alcohol intake: current substance use type: marijuana HPI HPI Chief Complaint: cough, congestion Details: EMMA VASQUEZ, is a 58 M who presents to the office today for complaint of nasal congestion and cough for the past 3 days. Patient denies hemoptysis, shortness of breath or difficulty breathing. No fever, chills or sweats. No nausea, vomiting or diarrhea. No loss of taste or smell. Patient states that his symptoms are worse at night. No other associated symptoms or alleviating/aggravating factors. ROS Const Constitutional: No other (6 system ROS completed with pertinent findings in the HPI otherwise normal.) Exam Const General: cooperative and well developed HENMT Head: normal to inspection and atraumatic Ears: hearing grossly normal bilaterally Nose: nasal discharge clear Face and sinus: normal facial exam Mouth: oral mucosae normal Throat: abnormal tonsil bilaterally hypertrophy 1+ Resp Effort Inspection: normal respiratory effort and no audible wheezes Auscultation: Bilateral: Clear to Auscultation Cardio Palpation: normal PMI Rate: regular rate Rhythm: regular rhythm Neuro General: patient alert Psych Appearance: grossly normal Coding Level of Care Code Off vis,new,level 3 Diagnoses Acute upper respiratory infection J06.9 Assessment and Plan Assessment and Plan (1) Acute upper respiratory infection: Status: Acute Plan: Atrovent as prescribed today. Encouraged to get plenty of rest, drink lots of clear liquids, and use Tylenol or Ibuprofen (unless contraindicated) for fever and comfort. Patient also educated on other symptomatic management techniques. To be seen in 7-10 days if no improvement; sooner if worsening of symptoms. Patient advised of potential red flags and when appropriate to report to the ED. Patient verbalized understanding and agreement with all the above. Medications: New ipratropium bromide administer into each nostril 2 sprays intranasal BID-TID PRN 30 mL 0RF postnasal drainage Clinical Quality Measures Falls Risk Screening/Assistive Devices Have you fallen in the past year?: No 10/19/24 1731 Date Brando Casarez Signature: Date (if applicable) CC: Normal [facility] Laboratory - Chemistry and C hemistry - challengeOrdered By: Harsha Dawson on 08-21-2024 Bilirubin Ql (U) Negative [facility] Glucose Ql (U) Negative [facility] Ketones Ql (U) Trace (5) [facility] pH (U) 6.0 [pH] [facility] Specific gravity (U) [Rel density] 1.015 [facility] Urobilinogen (U) [Mass/Vol] 0.9421483 mg/dL [facility] - Hematology and Cell countsOrdered By: Harsha Dawson on 08-21-2024 Hemoglobin Ql (U) Negative [facility] - Specimen inform ationOrdered By: Harsha Dawson on 08-21-2024 Clarity (U) Clear [facility] Color (U) Yellow [facility] - UrinalysisOrder ed By: Harsha Dawson on 08-21-2024 Nitrite Ql (U) Negative [facility] Protein Ql (U) Negative [facility] No Panel InformationOrdered By: Harsha Dawson on 08-21-2024 Urine Leukocytes Positive [facility] Urine Non-Hemolyzed Blood Negative [facility] Urgent Care Visit Reporton 0 08-21-2024 Urgent Care Visit Report [facility] [address], [address] [place] [address] OFFICE VISIT Date of Service: 08/21/24 MR#: [id number] Acct: [id number] Name: EMMA VASQUEZ Rep #: [id number] : 1965 Provider: ISSAC Tucker Age/Sex: 58/M Location: [facility] Status: Signed Intake Vital Signs 06/21/24 22:00 08/21/24 08:03 Height 5 ft 11 in 5 ft 11 in Weight: 170 lb BMI 23.7 BP 140/90 H Blood Pressure Location Lt brachial Position Sitting Respiration 12 Pulse 86 Pulse Source Monitor Temp 98.1 F Temp Source Temporal Pulse Oximetry (%) 99 Oxygen Delivery Method room air Intake Visit Reasons: CONCERN FOR UTI Chief Complaint: uti Is patient in pain?: Yes Allergies Penicillins Allergy (Verified 08/21/24 07:55) Hives Medications ???Medication ???Instructions ???Recorded ???Confirmed ???Type ciprofloxacin HCl 500 mg tablet 500 mg PO BID #10 tabs 08/21/24 Rx Nurse's Note: pt states occurring for 2 weeks having pain with urination along with pain with BM. states sx of frequent urination, dark urine, hemorrhoids. has not attempted any otc tx pt states ok to take penicillins even though listed in allergies. [facility] Medical History (Updated 08/21/24 @ 08:10 by Yvette Gutiérrez MA) Chest pain Tobacco use HLD (hyperlipidemia) Internal hemorrhoid, bleeding HTN (hypertension) Surgical History No history of previous surgery History of colonoscopy Family History (Updated 11/24/21 @ 13:04 by Guera Espinoza) Father Heart disease Diabetes Emphysema lung Mother Diabetes Uncle Colon cancer Social History (Updated 01/02/24 @ 10:[address] Ba Solis, DO) household members: significant other Smoking Status: Current every day smoker tobacco type: cigarettes alcohol intake: current substance use type: marijuana HPI HPI Chief Complaint: uti Details: EMMA VASQUEZ, is a 58 M who presents to the office today for [facility] for several day history of dysuria and urinary frequency with suprapubic pressure. No complaints of fever, chills, sweats, lightheadedness/dizziness, nausea/vomiting, or chest pain/shortness of breath/dyspnea on exertion/back pain. No changes in color/ character of urine or stool; no urethral discharge - though admit chronic rectal itching w/ rectal pain upon bowel movements - noting chronic h/o hemorrhoids. No taka-eyl-berkzox products taken to assist. No other associated symptoms and no alleviating/aggravating factors. ROS Const Constitutional: No other (As above) Exam Const General: cooperative, healthy appearing and no acute distress Orientation: alert, awake and oriented x3 Chest Chest palpation inspection: normal inspection of the chest Resp Effort Inspection: normal respiratory effort and able to speak in complete sentences Cardio Rate: regular rate Pulses: radial pulses present GI Inspection: normal to inspection Palpation: soft and tender suprapubic (Patient describes upon self-palpation) General: No CVA tenderness Skin General: no rashes or lesions noted Neuro General: patient alert, patient awake and patient oriented x3 Cognition: normal cognition Speech: speech normal Psych Appearance: grossly normal Mental Status: mental status grossly normal Mood: congruent mood Affect: normal affect Speech and Movement: speech and movement normal Attitude: cooperative Diagnoses Urinary tract infection N39.0 Hemorrhoids K64.9 Assessment and Plan Assessment and Plan (1) Urinary tract infection: Status: Acute (2) hemorrhoids: Status: Acute Plan: -Hemorrhoids by history See POC results; urine sent to lab for C/S. Ciprofloxacin as prescribed today. Supportive measures as instructed today, including clre-etm-fzlscoc Anusol as needed for symptomatic relief. Follow-up with PCP in 3 to 5 days should symptoms not improve, sooner should symptoms only worsen or any other concerns develop. Patient states acknowledging understanding all the above Results POC Urinalysis Dip (Clinic) Office Urine Color Yellow Last Edit by Yvette Gutiérrez MA on 08/21/24 08:10 Office Urine Clarity Clear Last Edit by Yvette Gutiérrez MA on 08/21/24 08:10 Office Urine Glucose Negative Last Edit by Yvette Gutiérrez MA on 08/21/24 08:10 Office Urine Ketones Trace (5) Last Edit by Yvette Gutiérrez MA on 08/21/24 08:10 Off Ur Spec [place] 1.015 Last Edit by Yvette Gutiérrez MA on 08/21/24 08:10 Office Urine pH 6.0 Last Edit by Yvette Gutiérrez MA on 08/21/24 08:10 Office Urine Bilirubin Negative Last Edit by Yvette Gutiérrez MA on 08/21/24 08:10 Office Urine Urobilinogen 0.2 mg/dL Last Edit by Yvette Gutiérrez MA on 08/21/24 08:10 Office (more content not included)... Normal [facility] Urine cultureOrdered By: Buddy Dawson on 08-21-2024 Bacteria identified Cx Nom (U) Culture exhibits no growth. [facility] Emergency Department Summary on 06-21-2024 Emergency Department Summary [facility] Records Department [address] [place] [address] Emergency Department Summary 06/21/24 MR#: [id number] Acct: [id number] Name: EMMA VASQUEZ Dada Rep #: [id number] : 1965 58 From: Brayden Cruz DO PCP: RAJ Red Status:DEP ER Location: ED HPI History of Present Illness Chief Complaint: GI Bleed [facility] Medical History Tobacco use HLD (hyperlipidemia) Internal hemorrhoid, bleeding HTN (hypertension) Home Medications ???Medication ???Instructions ???Recorded ???Last Taken ???Type amlodipine 5 mg tablet 10 mg (2 x 5 mg) PO DAILY #30 tabs 03/05/22 Unknown Rx atorvastatin 40 mg tablet 40 mg PO DAILY #30 tabs 03/05/22 U nknown Rx bupropion HCl 150 mg 24 hr tablet, 150 mg PO DAILY 03/05/22 Unknown History extended release cephalexin 500 mg capsule 500 mg PO Q6 #20 CAPSULES 01/02/24 Unknown Rx hydrocortisone 2.5 % topical cream 1 applic MS Q12H PRN hemorrhoids 06/21/24 Unknown Rx with perineal applicator #30 grams (Anusol-HC) Allergy/AdvReac Type Severity Reaction Status Date / Time Penicillins Allergy Hives Verified 06/21/24 22:00 Family History (Updated 11/24/21 @ 13:04 by Guera Espinoza) Father Heart disease Diabetes Emphysema lung Mother Diabetes Uncle Colon cancer Surgical History No history of previous surgery History of colonoscopy Social History (Updated 01/02/24 @ 10:[address] Ba Solis, ) household members: significant other Smoking Status: Current every day smoker tobacco type: cigarettes alcohol intake: current substance use type: marijuana EXAM Physical Exam Const Vital Signs: 06/21/24 22:00 06/21/24 23:20 Temperature 97.3 F L 98.4 F Temperature Source Temporal Pulse Rate 106 H 89 Respiratory Rate 18 18 Blood Pressure 147/98 H 145/78 H Blood Pressure Mean 114 100 Pulse Ox 95 96 Oxygen Delivery Method Room Air MDM MDM MDM Narrative Medical decision making narrative: HISTORY OF PRESENT ILLNESS: Chief complaint: Hemorrhoid, bright red blood in the stool 88-year-old male presents with concern for bleeding after he applied Epson salt paste to hemorrhoid. He notes burning after application of Epsom salt and some bright red blood at time. The patient does not take blood thinners. No history of bleeding diathesis REVIEW OF SYSTEMS: Pertinent positives: Bright red blood per rectum Pertinent negatives: Lightheadedness, dizziness, PHYSICAL EXAM: Nursing triage notes reviewed, Vital signs reviewed Constitutional: please see mdm Neck: No stridor, no JVD, full neck ROM Lungs: Clear to auscultation, No wheezing or rales. No increased work of breathing, no conversational dyspnea, no accessory muscle use, no nasal flaring. No respiratory distress noted Heart: Regular rate and rhythm, No murmurs, No rubs and No gallops, 2+ distal pulses (radial, femoral, posterior tibial) in all extremities Abdomen: Soft, there is no tenderness, rigidity, rebound or guarding, no obvious peritoneal signs, no palpable pulsatile abdominal masses, no auscultated abdominal bruit : No CVAT Extremities: No edema Rectal: Performed reclaimer nurse Constance in room. Showed 2 small abrasions noted at the 9 and 7 o'clock position of the likely source of patient's bleeding no thrombosed hemorrhoids noted. No fissures. No active bleeding noted. Skin: No rash or lesions noted MEDICAL DECISION MAKING: Chief Complaint: please see HPI MDM Narrative: [Consistent with the patient was initially hemodynamically stable, afebrile and nontoxic-appearing. Exam rectal trauma likely from Epsom salt paste. I considered the following differential diagnosis: GI bleed, hemorrhoid Exam consistent with external rectal trauma causing abrasion and bleeding. Offered blood work the patient to rule out significant anemia however the patient refused that he did not think he bled enough to require blood transfusion. Recommended topical Preparation H, recommended against using Epsom salt at this time. Recommended close PCP follow-up The patient and/or family, caregivers express understanding. The patient and/or family, caregivers agrees with the plan. Shared decision making: I will have a discussion with the patient and or visitors regarding risk/benefits of further testing or admission. They will be made aware of of the risk/benefits inherent in this decision they will be given the opportunity to voice understanding. Total critical care time today provided was at least 0 minutes. This excludes separately billable procedures. Critical care time (if documented) is secondary to the patient having high probability of clinically (more content not included)... Normal [facility] 01-26-2024 [facility] Telephone (INTMWS) -- EMMA VASQUEZ ([id number]) 1965 Date Time Provider Department 01/26/24 BRIAN GIBSON INTSofiyaWS During your visit today, we recorded the following information about you: Georgia Vincent LPN 01/26/2024 11:29 AM Signed Rec'd via mail request of records from 01/19/23 to present from [employer] [facility] [place] division of disability determination. This request was faxed to [facility] medical records release. Allergies As of Date: 01/26/2024 Noted Allergy Reaction BACTRIM (SULFAMETHOXAZOLE-TRIMETH* 01/13/2024 5 - Intolerance Comments: reports pancreatitis related to this PENICILLINS 09/05/2014 16 - Unknown 4 - Hives Date Reviewed: 01/13/2024 Reviewed by: Michelle Bourne LPN - Fully Assessed Reason for Visit: Release Of Medical Records [2017] Prescriptions as of 01/26/2024 - cephALEXin (KEFLEX) 500 mg capsule EVERY 6 HOURS - metFORMIN (GLUCOPHAGE) 500 mg tablet Take 1 tablet by mouth two times a day with meals. - DULoxetine (CYMBALTA) 30 mg capsule Take 1 capsule by mouth once daily. - CPAP/BIPAP/OTHER Type .CPAPSettings into a note to see current settings/supplies/DME information. - Cholecalciferol, Vitamin D3, 50 mcg (2,000 unit) cap Take 1 capsule by mouth once daily. Problem List As Of Date 01/26/2024 Noted Resolved Tobacco use [Z72.0] 05/12/2017 History of colonic polyps [Z86.0100] 06/07/2017 Primary hypertension [I10] 03/03/2022 Memory difficulties [R41.3] 03/03/2022 Internal hemorrhoids [K64.8] 03/03/2022 Moderate episode of recurrent major depressive *04/01/2022 Multiple renal cysts [Q61.02] 04/01/2022 Ventral hernia without obstruction or gangrene *04/01/2022 05/22/2022 Hypercholesterolemia [E78.00] 05/22/2022 Hepatic steatosis [K76.0] 06/15/2023 Gallbladder polyp [K82.4] 06/15/2023 Vitamin D deficiency [E55.9] 06/15/2023 MICA (obstructive sleep apnea) [G47.33] 06/15/2023 Type 2 diabetes mellitus with diabetic polyneur*12/24/2023 Anxiety and depression [F41.9, F32.A] 12/24/2023 Encounter Status:Closed by GEORGIA VINCENT on 01/26/24 Bev [facility] Mj 01-25-2024 [facility] Telephone (SLEWST) -- EMMA VASQUEZ ([id number]) 1965 M Date Time Provider Department 01/25/24 NEUROLOGY PROVIDER SLEKEREN During your visit today, we recorded the following information about you: Cindy Nolasco LPN 01/25/2024 10:39 AM Signed Called patient, no answer. LVM What DME company supplies patients pap machine? Please review and advise Cindy Nolasco LPN January 25, 2024 10:39 AM Allergies As of Date: 01/25/2024 Noted Allergy Reaction BACTRIM (SULFAMETHOXAZOLE-TRIMETH* 01/13/2024 5 - Intolerance Comments: reports pancreatitis related to this PENICILLINS 09/05/2014 16 - Unknown 4 - Hives Date Reviewed: 01/13/2024 Reviewed by: Michelle Bourne LPN - Fully Assessed Prescriptions as of 01/25/2024 - cephALEXin (KEFLEX) 500 mg capsule EVERY 6 HOURS - metFORMIN (GLUCOPHAGE) 500 mg tablet Take 1 tablet by mouth two times a day with meals. - DULoxetine (CYMBALTA) 30 mg capsule Take 1 capsule by mouth once daily. - CPAP/BIPAP/OTHER Type .CPAPSettings into a note to see current settings/supplies/DME information. - Cholecalciferol, Vitamin D3, 50 mcg (2,000 unit) cap Take 1 capsule by mouth once daily. Problem List As Of Date 01/25/2024 Noted Resolved Tobacco use [Z72.0] 05/12/2017 History of colonic polyps [Z86.0100] 06/07/2017 Primary hypertension [I10] 03/03/2022 Memory difficulties [R41.3] 03/03/2022 Internal hemorrhoids [K64.8] 03/03/2022 Moderate episode of recurrent major depressive *04/01/2022 Multiple renal cysts [Q61.02] 04/01/2022 Ventral hernia without obstruction or gangrene *04/01/2022 05/22/2022 Hypercholesterolemia [E78.00] 05/22/2022 Hepatic steatosis [K76.0] 06/15/2023 Gallbladder polyp [K82.4] 06/15/2023 Vitamin D deficiency [E55.9] 06/15/2023 MICA (obstructive sleep apnea) [G47.33] 06/15/2023 Type 2 diabetes mellitus with diabetic polyneur*12/24/2023 Anxiety and depression [F41.9, F32.A] 12/24/2023 Encounter Status:Closed by CINDY NOLASCO on 01/25/24 Normal [facility] ALBUMIN/CREATININE RATIO, UR INEon 01-13-2024 Albumin DL <= 20 mg/L (U) [Mass/Vol] mg/dL Normal [facility] Comment on above: Order Comment: Speci men Type: URINE SPECIMENOrdering Facility: [facility] Address: [address] [place] [address] Performed By: #### U ACR ####[facility] LABCLIA [id number] [place] [address] [place] Albumin/Creatinine (U) [Mass ratio] <21 Normal <30 [facility] Comment on above: Order Comment: Speci men Type: URINE SPECIMENOrdering Facility: [facility] Address: [address] [place] [address] Result Comment: Adul t Male and Female Nephrotic Criteria: <30 mg/g is considered normal to mildly increased 30-300 mg/g is considered moderately increased >300 mg/g is considered severely increased KDIGO. (2013). KDIGO 2012 Clinical Practice Guideline for the Evaluation and Management of Chronic Kidney Disease. Official Journal of the International Society of Nephrology, 3(1), 1-150. Performed By: #### U ACR ####[facility] LABCLIA [id number] [place] [address] [place] Creatinine (U) [Mass/Vol] 57.8 mg/dL Normal 20.0-300.0 [facility] Comment on above: Order Comment: Speci men Type: URINE SPECIMENOrdering Facility: [facility] Address: [address] [place] [address] Performed By: #### U ACR ####[facility] LABCLIA [id number] [address] [address] [place] CNOVon 01-13-2024 CNOV Office Visit (INTMWS ) -- EMMA VASQUEZ ([id number]) 1965 M Date Time Provider Department 01/13/24 8:40 AM DB VENCES INTMWS During your visit today, we recorded the following information about you: Pulse Respiration Blood pressure Weight 87/minute 16/minute 147/94 75.8 kg Db Vences APRN.[employer] SUPERVISOR 01/13/2024 9:32 AM Signed SUBJECTIVE: Urine Albumin:Creatinine Ratio Never done Dilated Retinal Exam Never done Diabetic Foot Exam Never done Hepatitis B Vaccine(1 of 3 - 19+ 3-dose series) Never done Shingrix Vaccine(1 of 2) Never done Pneumococcal Vaccine(2 of 2 - PCV) due on 05/12/2018 Colorectal Cancer Screening due on 06/07/2018 Covid-19 Vaccine( season) due on 10/10/2023 HPI Emma Vasquez is a 58 year old male. PMH significant for ACTIVE PROBLEM LIST Tobacco Use History of Colonic Polyps Primary Hypertension Memory Difficulties Internal Hemorrhoids Moderate Episode of Recurrent Major Depressive Disorder (Hcc) Multiple Renal Cysts Hypercholesterolemia Hepatic Steatosis Gallbladder Polyp Vitamin D Deficiency Mica (Obstructive Sleep Apnea) Type 2 Diabetes Mellitus With Diabetic Polyneuropathy, Without Long-Term Current Use of Insulin (Hcc) Anxiety and Depression Presents for follow up diabetes mellitus. Review of chart shows 2 ER visit since last here. [facility] 12/28/2023 for nausea and vomiting. CT concerning for pancreatitis. Lipase elevated. He preferred OP management. Clear iquids x 3 days recommended and to follow up with Brian Gibson APRN.CRUISE DIRECTOR. He presented to [facility] 01/02/2024 with report of constipation and abdominal pain. He was taking oxycontin. He was referred to ED as no imaging or labs available on this date. He presented to [facility] ER. Labs showed lipase trending downward but remained elevated.. Today reports feeling improved. Notes oral intake back to normal. No abdominal pain currently. Heartburn: none reported Reflux: none reported Abdominal pain: resolved Nausea: no Vomiting: no Diarrhea: no Constipation: no BRBPR: no Black tarry: no Dysuria: no Urgency: no Frequency: no Taking metformin as ordered Taking Keflex: states not yet completed course, had a lae start DIABETES MELLITUS: Reports decreased pasta intake. Without report of excessive thirst or increased frequency of urination, chest pain or dyspnea , numbness, tingling or pain in extremities, new or unusual visual symptoms, low sugar/hypoglycemic reactions, weight loss/gain, lightheadedness/dizziness, and bowel changes/loose stools. Home glucose readings: does not check. Patient's last HgA1C was Hemoglobin A1C (POCT) (%) Date Value 12/24/2023 7.3 05/22/2022 6.2 ) Review of Systems Constitutional: Negative. Respiratory: Negative. Cardiovascular: Negative. Gastrointestinal: Negative. Objective BP 147/94 Pulse 87 Resp 16 Wt 75.8 kg (167 lb 1.7 oz) BMI 26.17 kg/m? Physical Exam Vitals and nursing note reviewed. Constitutional: Appearance: Normal appearance. HENT: Head: Normocephalic and atraumatic. Eyes: Conjunctiva/sclera: Conjunctivae normal. Neck: Thyroid: No thyromegaly. Vascular: Normal carotid pulses. No JVD. Cardiovascular: Rate and Rhythm: Normal rate and regular rhythm. Heart sounds: Normal heart sounds. Pulmonary: Effort: Pulmonary effort is normal. Breath sounds: Normal breath sounds. Abdominal: General: Bowel sounds are normal. Palpations: Abdomen is soft. Musculoskeletal: Right lower leg: No edema. Left lower leg: No edema. Neurological: General: No focal deficit present. Mental Status: He is alert. ALLERGIES Allergen Reactions Penicillins Unknown, Hives Medications metFORMIN (GLUCOPHAGE) 500 mg tablet Take 1 tablet by mouth two times a day with meals. DULoxetine (CYMBALTA) 30 mg capsule Take 1 capsule by mouth once daily. CPAP/BIPAP/OTHER Type .CPAPSettings into a note to see current settings/supplies/DME information. Cholecalciferol, Vitamin D3, 50 mcg (2,000 unit) cap Take 1 capsule by mouth once daily. PAST MEDICAL HISTORY Diagnosis Date Essential hypertension Hemorrhoids History of colonic polyps 06/07/2017 06/07/17 25 mm sessile polyp sigmoid colon. 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 Rec: 6mo follow up Hypercholesterolemia 05/22/2022 Moderate episode of recurrent major depressive disorder (HCC) 04/01/2022 Multiple renal cysts 04/01/2022 Primary hypertension 03/03/2022 Smoker Tobacco use 05/12/2017 Social History Tobacco Use Smoking status: Every Day Current packs/day: 1.00 Average packs/day: 1 pack/day for 17.0 years (17.0 ttl pk-yrs) Types: Cigarettes Smokeless tobacco: Former Vaping Use Vaping status: Never Used Substance Use Topics Alcohol use: Yes Alcohol/week: 21.0 standard drinks of alcohol Types: 21 Cans of Beer (12oz) per week Drug us (more content not included)... Normal [facility] Lipase SerPl-cCncon 01-13-20 24 Lipase [Catalytic activity/Vol] 124 U/L High 16-61 [facility] Comment on above: Order Comment: Speci men Type: BLOOD SPECIMENOrdering Facility: [facility] Address: [address] [place] [address] Performed By: #### 3 040-3 ####[facility] LABCLIA [id number] [place] [address] [place] Urine Cultureon 01-03-2024 URC Culture exhibits no growth. Normal [facility] Comment on above: Performed By: #### M [id number] ####[facility] [id number] [facility] [place], [place], [address] Abdomen/Pelvis W IV Cont ONL Yon 01-02-2024 Abdomen/Pelvis W IV Cont ONLY [facility] Imaging Services [address] [place], [place] [address] Abdomen/Pelvis W IV Cont ONLY MR#: [id number] Acct: [id number] Name: PEDRORICARDOANGIE Garland Rep #: [id number] : 1965 M 58 From: Bernard Garcia MD PCP: Brian Gibson NP-C Status: REG ER Study: Abdomen/Pelvis W IV Cont ONLY Date of Exam: Exam# [id number] Ordering Dr: Ba Solis DO [id number] EXAM: CT ABDOMEN AND PELVIS WITH INTRAVENOUS CONTRAST CLINICAL INDICATION: Abdominal pain TECHNIQUE: Helically acquired images were obtained of the abdomen and pelvis with intravenous contrast. This CT exam was performed using one or more of the following dose reduction techniques: automated exposure control, adjustment of the mA and/or kV according to patient size, and/or use of iterative reconstruction technique. CONTRAST: IV 100mL Isovue-370 COMPARISON: No relevant prior studies available. FINDINGS: LOWER THORAX: Normal. Lung bases are clear. No cardiomegaly. No pericardial effusion. ABDOMEN: LIVER: Normal. Homogeneous. No focal mass. GALLBLADDER AND BILE DUCTS: Normal. No calcified gallstones. No gallbladder distention or wall edema. No intra- or extrahepatic biliary ductal dilation. PANCREAS: Normal. No focal cystic or solid mass. SPLEEN: Normal. Normal size without focal cystic or solid mass. ADRENALS: Normal. No nodules. KIDNEYS AND URETERS: Small parapelvic renal cysts noted bilaterally. No specific follow-up indicated. No hydronephrosis. STOMACH AND BOWEL: Diverticulosis of the colon noted without evidence of acute diverticulitis. PELVIS: APPENDIX: Appendix is visualized and normal in appearance. BLADDER: Normal. REPRODUCTIVE: Prostate gland is mildly enlarged. ABDOMEN and PELVIS: INTRAPERITONEAL SPACE: Normal. No ascites or other fluid collection. No free air. BONES/JOINTS: No suspicious lytic or blastic abnormality. SOFT TISSUES: Small fat-containing umbilical hernia is present. VASCULATURE: Normal. Abdominal aorta is non-dilated. LYMPH NODES: Normal. No enlarged lymph nodes. CT/Abdomen/Pelvis W IV Cont ONLY IMPRESSION: 1. No acute abdominal or pelvic abnormality. 2. Diverticulosis coli. Electronically Signed: Bernard Garcia MD at 13:37 EST , CC: RAJ Gibson; Dr. Ba Schwiger, DO Rn Cardiac: Signed Normal [facility] CBC W/Diff, Automatedon 11-2 Absolute Lymph 3.16 X10 3/uL Normal 0.83-4.51 [facility] Comment on above: Performed By: #### L 500.4050, L100.0100 #### [facility] [address] [place], [address] Absolute Neut 3.8 X10 3/uL Normal 2.0-7.7 [facility] Comment on above: Performed By: #### L 500.4050, L100.0100 #### [facility] [address] [place], [address] Basophils/100 WBC (Bld) 0.6 % Normal 0-1 [facility] Comment on above: Performed By: #### L 500.4050, L100.0100 #### [facility] [address] [place], [address] Eosinophils/100 WBC (Bld) 1.7 % Normal 0-5 [facility] Comment on above: Performed By: #### L 500.4050, L100.0100 #### [facility] [address] [place], [address] Erythrocyte distribution width (RBC) [Ratio] 13.0 % Normal 11.6-14.6 [facility] Comment on above: Performed By: #### L 500.4050, L100.0100 #### [facility] [address] [place], [address] Hematocrit (Bld) [Volume fraction] 52.1 % Normal 40-54 [facility] Comment on above: Performed By: #### L 500.4050, L100.0100 #### [facility] [address] [place], [address] Hemoglobin (Bld) [Mass/Vol] 17.4 g/dL High 13.0-16.5 [facility] Comment on above: Performed By: #### L 500.4050, L100.0100 #### [facility] [address] [place], [address] IG% 0.300 Normal 0.0-0.9 [facility] Comment on above: Result Comment: IG% - Immature Granulocytes (promyelocytes, myelocytes and metamyelocytes) > 1% indicates that a LEFT SHIFT is Present. Performed By: #### L 500.4050, L100.0100 #### [facility] [address] [place], [address] Lymphocytes/100 WBC (Bld) 40.6 % Normal 19-41 [facility] Comment on above: Performed By: #### L 500.4050, L100.0100 #### [facility] [address] [place], [address] MCH (RBC) [Entitic mass] 29.6 pg Normal 27.0-32.0 [facility] Comment on above: Performed By: #### L 500.4050, L100.0100 #### [facility] [address] [place], [address] MCHC (RBC) [Mass/Vol] 33.4 g/dL Normal 32-36 [facility] Comment on above: Performed By: #### L 500.4050, L100.0100 #### [facility] [address] [place], [address] MCV (RBC) [Entitic vol] 88.6 fL Normal 80-94 [facility] Comment on above: Performed By: #### L 500.4050, L100.0100 #### [facility] [address] [place], [address] Monocytes/100 WBC (Bld) 7.8 % Normal 0-10 [facility] Comment on above: Performed By: #### L 500.4050, L100.0100 #### [facility] [address] [place], [address] Neutrophils/100 WBC (Bld) 49.0 % Normal 47-70 [facility] Comment on above: Performed By: #### L 500.4050, L100.0100 #### [facility] [address] [place], [address] Nucleated RBC (Bld) [#/Vol] 0 10*3/uL Normal 0-5 [facility] Comment on above: Performed By: #### L 500.4050, L100.0100 #### [facility] [address] [place], [address] Platelet mean volume (Bld) [Entitic vol] 9.4 fL Normal 6.2-12.0 [facility] Comment on above: Performed By: #### L 500.4050, L100.0100 #### [facility] [address] [place], [address] Platelets (Bld) [#/Vol] 308 10*3/uL Normal 150-450 [facility] Comment on above: Performed By: #### L 500.4050, L100.0100 #### [facility] [address] [place], [address] RBC (Bld) [#/Vol] 5.88 10*6/uL Normal 4.6-6.2 [facility] Comment on above: Performed By: #### L 500.4050, L100.0100 #### [facility] [address] [place], [address] RDW SD 42.3 fl Normal 35.1-43.9 [facility] Comment on above: Performed By: #### L 500.4050, L100.0100 #### [facility] [address] [place], [address] WBC (Bld) [#/Vol] 7.8 10*3/uL Normal 4.4-11.0 [facility] Comment on above: Performed By: #### L 500.4050, L100.0100 #### [facility] [place], [address] CNOVon 01-02-2024 CNOV Office Visit (UCWSTR ) -- CHADEMMA BURNS ([id number]) 1965 M Date Time Provider Department 01/02/24 9:30 AM BEBA COOK [facility] [[email or web address]] During your visit today, we recorded the following information about you: Beba Cook APRN.CNP 01/02/2024 9:31 AM Signed This note was created using [employer]. Subjective Emma Vasquez is a 58 year old male. 58 year old male with PMH DM, HTN, presents for abdominal pain Acute onset Lower abdominal pain LBM 3 days ago +nausea +low grade fever +chills +passing gas Denies emesis Denies CP Has used laxative and OTC OF note, he was recently discharged from [facility] ED after diagnosed with pancreatitis He was provided Oxycontin Has appt with Brian Gibson tomorrow The history is provided by the patient. No humanities and languages professor was used. PAST MEDICAL HISTORY Diagnosis Date - Essential hypertension - Hemorrhoids - History of colonic polyps 06/07/2017 06/07/17 25 mm sessile polyp sigmoid colon. 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 Rec: 6mo follow up - Hypercholesterolemia 05/22/2022 - Moderate episode of recurrent major depressive disorder (HCC) 04/01/2022 - Multiple renal cysts 04/01/2022 - Primary hypertension 03/03/2022 - Smoker - Tobacco use 05/12/2017 PAST SURGICAL HISTORY Procedure Laterality Date - COLONOSCOPY FLX DX W/COLLJ SPEC WHEN PFRMD 06/07/2017 Colonoscopy ALLERGIES Penicillins MEDICATIONS - metFORMIN (GLUCOPHAGE) 500 mg tablet Take 1 tablet by mouth two times a day with meals. - DULoxetine (CYMBALTA) 30 mg capsule Take 1 capsule by mouth once daily. - CPAP/BIPAP/OTHER Type .CPAPSettings into a note to see current settings/supplies/DME information. - Cholecalciferol, Vitamin D3, 50 mcg (2,000 unit) cap Take 1 capsule by mouth once daily. FAMILY HISTORY Problem Relation Age of Onset - Diabetes Mother - Heart Father - Hypertension Father Social History Tobacco Use - Smoking status: Every Day Current packs/day: 1.00 Average packs/day: 1 pack/day for 17.0 years (17.0 ttl pk-yrs) Types: Cigarettes - Smokeless tobacco: Former Vaping Use - Vaping status: Never Used Substance Use Topics - Alcohol use: Yes Alcohol/week: 21.0 standard drinks of alcohol Types: 21 Cans of Beer (12oz) per week - Drug use: Yes Comment: past use of crack and marijuana Review of Systems Objective There were no vitals taken for this visit. Physical Exam Constitutional: Appearance: Normal appearance. Abdominal: Tenderness: There is abdominal tenderness (right lower quadrant and left lower quadrant). Neurological: Mental Status: He is alert. Assessment and Plan ASSESSMENT/PLAN: 1. Lower abdominal pain - ICD9: 789.09, ICD10: R10.30 - Patient recently evaluated for abdominal pain Dx pancreatitis No BM x 3 days Lower abdominal pain Was prescribed Oxycontin SBO VS constipation No imaging or labs available Wednesday, Referred to ED Declines EMS Beba Cook APRN.CRUISE DIRECTOR Allergies As of Date: 01/02/2024 Noted Allergy Reaction PENICILLINS 09/05/2014 16 - Unknown 4 - Hives Date Reviewed: 12/28/2023 Reviewed by: Bianka Duarte, KAREN - Fully Assessed Primary Visit Diagnosis:Lower abdominal pain [R10.30] Prescriptions as of 01/02/2024 - metFORMIN (GLUCOPHAGE) 500 mg tablet Take 1 tablet by mouth two times a day with meals. - DULoxetine (CYMBALTA) 30 mg capsule Take 1 capsule by mouth once daily. - CPAP/BIPAP/OTHER Type .CPAPSettings into a note to see current settings/supplies/DME information. - Cholecalciferol, Vitamin D3, 50 mcg (2,000 unit) cap Take 1 capsule by mouth once daily. Problem List As Of Date 01/02/2024 Noted Resolved Tobacco use [Z72.0] 05/12/2017 History of colonic polyps [Z86.0100] 06/07/2017 Primary hypertension [I10] 03/03/2022 Memory difficulties [R41.3] 03/03/2022 Internal hemorrhoids [K64.8] 03/03/2022 Moderate episode of recurrent major depressive *04/01/2022 Multiple renal cysts [Q61.02] 04/01/2022 Ventral hernia without obstruction or gangrene *04/01/2022 05/22/2022 Hypercholesterolemia [E78.00] 05/22/2022 Hepatic steatosis [K76.0] 06/15/2023 Gallbladder polyp [K82.4] 06/15/2023 Vitamin D deficiency [E55.9] 06/15/2023 MICA (obstructive sleep apnea) [G47.33] 06/15/2023 Type 2 diabetes mellitus with diabetic polyneur*12/24/2023 Anxiety and depression [F41.9, F32.A] 12/24/2023 Encounter Status:Closed by BEBA COOK on 01/02/24 Normal [facility] Metabolic Prof milton 01-02-2024 Albumin [Mass/Vol] 3.6 g/dL Normal 3.2-5.0 [facility] Comment on above: Performed By: #### L 500.4050, L100.0100 #### [facility] [address] [place], [address] Albumin/Globulin [Mass ratio] 1.0 {ratio} Normal 0.9-2.4 [facility] Comment on above: Performed By: #### L 500.4050, L100.0100 #### [facility] [address] [place], [address] ALK P 79 U/L Normal 45-117 [facility] Comment on above: Performed By: #### L 500.4050, L100.0100 #### [facility] [address] [place], [address] ALT [Catalytic activity/Vol] 27 U/L Normal 16-61 [facility] Comment on above: Performed By: #### L 500.4050, L100.0100 #### [facility] [address] [place], [address] AST [Catalytic activity/Vol] 10 U/L Low 15-37 [facility] Comment on above: Performed By: #### L 500.4050, L100.0100 #### [facility] [address] [place], [address] Bilirubin [Mass/Vol] 0.40 mg/dL Normal 0.20-1.00 [facility] Comment on above: Result Comment: For patients on eltrombopag therapy, use of Dimension [place] TBIL is not recommended. Performed By: #### L 500.4050, L100.0100 #### [facility] [address] [place], [address] BUN/CRE 12.4 RATIO Normal 10-20 [facility] Comment on above: Performed By: #### L 500.4050, L100.0100 #### [facility] [address] [place], [address] CA,Total 9.0 mg/dL Normal 8.5-10.1 [facility] Comment on above: Performed By: #### L 500.4050, L100.0100 #### [facility] [address] [place], [address] Chloride [Moles/Vol] 109 mmol/L High 98-107 [facility] Comment on above: Performed By: #### L 500.4050, L100.0100 #### [facility] [address] [place], [address] CO2 [Moles/Vol] 25.0 mmol/L Normal 21.0-32.0 [facility] Comment on above: Performed By: #### L 500.4050, L100.0100 #### [facility] [address] [place], [address] Creatinine [Mass/Vol] 0.80 mg/dL Normal 0.70-1.30 [facility] Comment on above: Result Comment: The validity of the calculated GFR GFRAA in patients over 70 years has not been determined. Clinical correlation is essential. Performed By: #### L 500.4050, L100.0100 #### [facility] [address] [place], [address] ECRCL 107.20 ml/min Normal [facility] Comment on above: Performed By: #### L 500.4050, L100.0100 #### [facility] [address] [place], [address] EST GFR - AA 127 mL/min Normal >60 [facility] Comment on above: Result Comment: Afri can Dominican GFR Calc Performed By: #### L 500.4050, L100.0100 #### [facility] [address] [place], [address] GAP 6 Normal 5-15 [facility] Comment on above: Performed By: #### L 500.4050, L100.0100 #### [facility] [address] [place], [address] GFR/1.73 sq M.predicted among non-blacks MDRD (S/P/Bld) [Vol rate/Area] 105 mL/min/{1.73_m2} Normal >60 [facility] Comment on above: Result Comment: Non- GFR Calc Performed By: #### L 500.4050, L100.0100 #### [facility] [address] [place], [address] Globulin (S) [Mass/Vol] 3.6 g/dL Normal 2.2-4.2 [facility] Comment on above: Performed By: #### L 500.4050, L100.0100 #### [facility] [address] [place], [address] Glucose [Mass/Vol] 125 mg/dL High 74-106 [facility] Comment on above: Result Comment: Fast ing Glucose result from 100 to 125 mg/dL suggests IMPAIRED HOMEOSTASIS per A.D.A. criteria. Performed By: #### L 500.4050, L100.0100 #### [facility] [address] [place], [address] Potassium [Moles/Vol] 4.0 mmol/L Normal 3.5-5.1 [facility] Comment on above: Performed By: #### L 500.4050, L100.0100 #### [facility] [address] [place], [address] Sodium [Moles/Vol] 140 mmol/L Normal 136-145 [facility] Comment on above: Performed By: #### L 500.4050, L100.0100 #### [facility] [address] [place], [address] T PROT 7.2 g/dL Normal 6.4-8.2 [facility] Comment on above: Performed By: #### L 500.4050, L100.0100 #### [facility] [address] [place], [address] Urea nitrogen [Mass/Vol] 10 mg/dL Normal 7-18 [facility] Comment on above: Performed By: #### L 500.4050, L100.0100 #### [facility] [address] [place], [address] Emergency Department Summary on 01-02-2024 Emergency Department Summary [facility] Medical Records Department [address] [place] [address] Emergency Department Summary 01/02/24 MR#: [id number] Acct: [id number] Name: EMMA VASQUEZ Rep #: [id number] : 1965 58 From: Ba Solis DO PCP: RAJ Red Status:DEP ER Location: ED HPI History of Present Illness Chief Complaint: Constipation Informant: patient Onset/Context/Timing Onset: Days (5) Context: Gradual Onset Timing: Continuous Quality: Cramping Location: Lower abdomen Worsened by: Nothing Relieved by: Nothing Narrative Narrative: Patient presents with constipation that has been constant over the last 5 days. Patient states he has pain in and cramping in his lower abdomen. Patient states nothing makes it better nothing makes it worse. Patient states she has been using MiraLAX which has softened his stool. Patient states she still feels constipated however. Patient was seen at an urgent care last week and was diagnosed with a urinary tract infection. Patient was started on Bactrim at that time. Patient states that he started having worsening abdominal pain and went to the emergency department at [place]. Patient states she was diagnosed with pancreatitis at that time. Patient denies any fevers or chills. Patient denies any nausea or vomiting. Patient denies any urinary complaints. [facility] Medical History Tobacco use HLD (hyperlipidemia) Internal hemorrhoid, bleeding HTN (hypertension) Home Medications ???Medication ???Instructions ???Recorded ???Last Taken ???Type amlodipine 5 mg tablet 10 mg (2 x 5 mg) PO DAILY #30 tabs 03/05/22 Unknown Rx atorvastatin 40 mg tablet 40 mg PO DAILY #30 tabs 03/05/22 Unknown Rx bupropion HCl 150 mg 24 hr tablet, 150 mg PO DAILY 03/05/22 Unknown History extended release cephalexin 500 mg capsule 500 mg PO Q6 #20 CAPSULES 01/02/24 Unknown Rx Allergy/AdvReac Type Severity Reaction Status Date / Time Penicillins Allergy Hives Verified 01/02/24 15:08 Family History (Updated 11/24/21 @ 13:04 by Guera Espinoza) Father Heart disease Diabetes Emphysema lung Mother Diabetes Uncle Colon cancer Surgical History No history of previous surgery History of colonoscopy Social History (Updated 01/02/24 @ 10:[address] Ba Solis DO) household members: significant other Smoking Status: Current every day smoker tobacco type: cigarettes alcohol intake: current substance use type: marijuana ROS ROS ED Constitutional Constitutional ED: Denies chills or fever(s) Eyes Eyes: Denies blurry vision or change in vision ENT ENT ED: Denies rhinorrhea or sore throat Cardiovascular Cardiovascular: Denies chest pain or palpitations Respiratory/Chest Respiratory/Chest: Denies cough or dyspnea Gastrointestinal Gastrointestinal: Reports abdominal pain and constipation; Denies nausea or vomiting Genitourinary Genitourinary ED: Denies dysuria or hematuria Musculoskeletal Musculoskeletal: Denies back pain or neck pain Integumentary Denies abscess or rash Neurologic Neurologic: Denies headache(s) or weakness Allergic/Immunologic Allergic/Immunologic ED: Denies mouth swelling or urticaria EXAM Physical Exam Const Vital Signs: 01/02/24 09:40 01/02/24 11:43 01/02/24 13:00 Temperature 98.6 F Temperature Source Oral Pulse Rate 60 79 87 Respiratory Rate 18 15 16 Blood Pressure 148/101 H 142/86 H 137/75 H Blood Pressure Mean 116 104 95 Pulse Ox 98 96 100 Oxygen Delivery Method Room Air Room Air Room Air 01/02/24 15:00 Temperature Temperature Source Pulse Rate 72 Respiratory Rate 16 Blood Pressure 154/100 H Blood Pressure Mean 118 Pulse Ox 99 Oxygen Delivery Method Positive well nourished and well developed General Appearance ED: well developed and NAD HEENT Reports moist mucous membranes Neck supple and no JVD Resp normal respiratory effort and clear to auscultation bilaterally Cardio regular rate and regular rhythm GI non-distended Palpation: soft and tender LLQ, RLQ and suprapubic; Negative for guarding or rebound tenderness present Extremity normal to inspection General Extremety ED: Negative for edema or tenderness General Extremity: Negative for edema Neuro oriented x3, CN's II-XII intact bilaterally and no sensory deficits noted Sensorium / Orientation: alert Motor Exam: strength 5/5 throughout Psych mental status grossly normal MDM MDM MDM Narrative Medical decision making narrative: Differential diagnosis includes constipation, bowel obstruction, perforation, ascites, pancreatitis, and urinary tract infection. CBC will be obtained to assess for leukocytosis and anemi (more content not included)... Normal [facility] Lipaseon 01-02-2024 Lipase [Catalytic activity/Vol] 131 U/L High 13-75 [facility] Comment on above: Result Comment: Adriel quick note: LIPASE revised reference range effective 22. New Lipase methodology. Expected to produce lower values than the previous assay method. NEW Reference Range: 13 - 75 U/L Performed By: #### L 501.2450 #### [facility] [address] [place], [address] Urinalysis, Completeon 01-01 BACTERIA RARE Normal None Seen [facility] Comment on above: Order Comment: CLEAN CATCH Performed By: #### L 400.0001 #### [facility] [address] [place], [address] CAST,HYALINE 0-5 SEEN Normal 0-5 [facility] Comment on above: Order Comment: CLEAN CATCH Performed By: #### L 400.0001 #### [facility] [address] [place], [address] EPI,SQUAMOUS 5-10 SEEN Normal 0-5 [facility] Comment on above: Order Comment: CLEAN CATCH Performed By: #### L 400.0001 #### [facility] [address] [place], [address] Mucus Ql (Urine sed) 1+ /hpf Normal [facility] Comment on above: Order Comment: CLEAN CATCH Performed By: #### L 400.0001 #### [facility] [address] [place], [address] RBC 0-5 SEEN Normal 0-5 [facility] Comment on above: Order Comment: CLEAN CATCH Performed By: #### L 400.0001 #### [facility] [address] [place], [address] WBC 10-25 SEEN Normal 0-5 [facility] Comment on above: Order Comment: CLEAN CATCH Performed By: #### L 400.0001 #### [facility] [address] [place], [address] ED NOTEon 12-29-2023 ED NOTE HNO ID: [id number] Author: ALMA ZULETA RN Service: Emergency Medicine Author Type: Registered Nurse Type: ED Notes Filed: 12/29/2023 09:22 Note Text: Emergency Services: ED Call Back Questionnaire SERVICE DATE: 12/28/2023 Are you feeling better? Yes Any questions about discharge instructions and follow-up care? Yes: Questions with diet. Were you able to make a follow up appointment? Yes Do you have any further questions? No Is there anything that we could have done differently to improve your ED visit? No SIGNATURE: Alma Zuleta RN PATIENT NAME: Emma Vasquez DATE: December 29, 2023 TIME: 9:22 AM Normal [facility] ED NOTE HNO ID: [id number] Author: DI PICHARDO RN Service: Emergency Medicine Author Type: Registered Nurse Type: ED Notes Filed: 12/29/2023 00:15 Note Text: Pt verbalizes understanding of discharge instructions. Denies further questions, comments, concerns at this time. Reports pain improved and understanding of all dc instructions. NAD. Ambulates without difficulty. Normal [facility] ED PROV NOTEon 12-29-2023 ED PROV NOTE HNO ID: [id number] Author: CECILIA NOLASCO MD Service: Emergency Medicine Author Type: Physician Type: ED Provider Notes Filed: 12/29/2023 03:47 Note Text: ED Provider Note Patient Name: Emma Vasquez : 1965 SERVICE DATE: 12/28/23 History Patient presents with: Nausea AND Vomiting The patient is a 58-year-old male presenting today with complaint of abdominal pain nausea and vomiting. Patient states his symptoms started about a week ago. He presented to urgent care because he was having some increased frequency and urgency of his urine. He states he has a history of UTIs and thought that he was having another episode is also had dysuria. Urgent care did a UA and found it to be infected. He was placed on Bactrim. While at the urgent care they noted glucose in his urine so they tested his sugar and found it to be elevated. They started him on hypoglycemic medications and follow-up to his primary care physician. Patient states that he took 2 days worth of the Bactrim that was given he was started feel normal with no symptoms so he stopped taking any further amounts of the prescription. He states upon stopping it the next day hestarted having episodes of diarrhea. He states he had diarrhea 2 days in a row that was difficult to control. After the diarrhea stopped patient then started getting abdominal pain that he complains of across the upper portion of his abdomen right above the umbilicus. He states that the pain is decreasing his appetite as well as making him nauseous. He feels the pain radiating to his back. He is never had anything like this before. No history of gallstones, or significant amount of alcohol intake. No previous history of pancreatitis flare. PAST MEDICAL HISTORY Diagnosis Date Essential hypertension Hemorrhoids History of colonic polyps 06/07/2017 06/07/17 25 mm sessile polyp sigmoid colon. 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 Rec: 6mo follow up Hypercholesterolemia 05/22/2022 Moderate episode of recurrent major depressive disorder (HCC) 04/01/2022 Multiple renal cysts 04/01/2022 Primary hypertension 03/03/2022 Smoker Tobacco use 05/12/2017 PAST SURGICAL HISTORY Procedure Laterality Date COLONOSCOPY FLX DX W/COLLJ SPEC WHEN PFRMD 06/07/2017 Colonoscopy FAMILY HISTORY Problem Relation Age of Onset Diabetes Mother Heart Father Hypertension Father Social History Tobacco Use Smoking status: Every Day Current packs/day: 1.00 Average packs/day: 1 pack/day for 17.0 years (17.0 ttl pk-yrs) Types: Cigarettes Smokeless tobacco: Former Vaping Use Vaping status: Never Used Substance and Sexual Activity Alcohol use: Yes Alcohol/week: 21.0 standard drinks of alcohol Types: 21 Cans of Beer (12oz) per week Drug use: Yes Comment: past use of crack and marijuana Sexual activity: Not on file ALLERGIES Allergen Reactions Penicillins Unknown, Hives Review of Systems Constitutional: Negative for activity change, appetite change, chills, fatigue and fever. HENT: Negative for congestion, ear pain, rhinorrhea and sore throat. Respiratory: Negative for cough and shortness of breath. Cardiovascular: Negative for chest pain and palpitations. Gastrointestinal: Positive for abdominal pain, diarrhea, nausea and vomiting. Genitourinary: Negative for dysuria, frequency and urgency. Musculoskeletal: Negative for arthralgias and myalgias. Skin: Negative for rash and wound. Neurological: Negative for dizziness and headaches. Psychiatric/Behavioral: Negative for self-injury and suicidal ideas. All other systems reviewed and are negative. Physical Exam Vitals BP Pulse Temp Temp src Resp SpO2 Weight Height 12/28/23 1740 12/28/23 1737 12/28/23 1737 -- 12/28/23 1737 12/28/23 1737 12/28/23 1737 -- 158/108 (!) 108 36.6 ?C (97.8 ?F) 16 98 % 74.8 kg (165 lb) Physical Exam Vitals and nursing note reviewed. Constitutional: General: He is not in acute distress. Appearance: He is well-developed. HENT: Head: Normocephalic and atraumatic. Nose: Nose normal. Mouth/Throat: Mouth: Mucous membranes are moist. Eyes: Pupils: Pupils are equal, round, and reactive to light. Cardiovascular: Rate and Rhythm: Normal rate and regular rhythm. Heart sounds: Normal heart sounds. Pulmonary: Effort: Pulmonary effort is normal. No respiratory distress. Breath sounds: Normal breath sounds. Abdominal: General: Bowel sounds are normal. There is no distension. Palpations: Abdomen is soft. Tenderness: There is abdominal tenderness in the epigastric area. There is no right CVA tenderness, left CVA tenderness, guarding or rebound. Hernia: A hernia is present. Hernia is present in the umbilical area. Comments: Umbilical hernia easily reduced on examination Musculoskeletal: General: Normal range of motion. Cervical back: Normal range of motion and neck supple. Right lower leg: No edema. Left lower leg: No edema. (more content not included)... Normal [facility] CBC W Auto Differential pane l (Bld)on 12-28-2023 Basophils (Bld) [#/Vol] 0.03 10*3/uL Normal <0.11 [facility] Comment on above: Order Comment: Speci men Type: BLOOD SPECIMEN Ordering Facility: [facility] Address: [address] [place] [id number] Performed By: #### 5 7021-8 #### [facility] CLIA [id number] [address] Basophils/100 WBC (Bld) 0.2 % Normal [facility] Comment on above: Order Comment: Speci men Type: BLOOD SPECIMEN Ordering Facility: [facility] Address: [address] [place] [address] Performed By: #### 5 7021-8 #### [facility] CLIA [id number] [address] [place] Differential cell count method Nom (Bld) Auto Normal [facility] Comment on above: Order Comment: Speci men Type: BLOOD SPECIMEN Ordering Facility: [facility] Address: [address] [place] [address] Performed By: #### 5 7021-8 #### [facility] CLIA [id number] [address] [place] Eosinophils (Bld) [#/Vol] 0.09 10*3/uL Normal <0.46 [facility] Comment on above: Order Comment: Speci men Type: BLOOD SPECIMEN Ordering Facility: [facility] Address: [address] [place] [address] Performed By: #### 5 7021-8 #### [facility] CLIA [id number] [address] Eosinophils/100 WBC (Bld) 0.7 % Normal [facility] Comment on above: Order Comment: Speci men Type: BLOOD SPECIMEN Ordering Facility: [facility] Address: [address] [place] [address] Performed By: #### 5 7021-8 #### [facility] CLIA [id number] [address] [place] Erythrocyte distribution width (RBC) [Ratio] 12.8 % Normal 11.5-15.0 [facility] Comment on above: Order Comment: Speci men Type: BLOOD SPECIMEN Ordering Facility: [facility] Address: [address] [place] [address] Performed By: #### 5 7021-8 #### [facility] CLIA [id number] [address] [place] [address] [place] Hematocrit (Bld) [Volume fraction] 53.6 % High 39.0-51.0 [facility] Comment on above: Order Comment: Speci men Type: BLOOD SPECIMEN Ordering Facility: [facility] Address: [address] [place] [address] Performed By: #### 5 7021-8 #### [facility] CLIA [id number] [address] [place] [address] [place] Hemoglobin (Bld) [Mass/Vol] 17.9 g/dL High 13.0-17.0 [facility] Comment on above: Order Comment: Speci men Type: BLOOD SPECIMEN Ordering Facility: [facility] Address: [address] [place] [address] Performed By: #### 5 7021-8 #### [facility] CLIA [id number] [address] [place] [address] [place] Immature granulocytes (Bld) [#/Vol] 0.03 10*3/uL Normal <0.10 [facility] Comment on above: Order Comment: Speci men Type: BLOOD SPECIMEN Ordering Facility: [facility] Address: [address] [place] [address] Performed By: #### 5 7021-8 #### [facility] CLIA [id number] [address] [place], [place] [id number] [place] [address] [place] Immature granulocytes/100 WBC (Bld) 0.2 % Normal [facility] Comment on above: Order Comment: Speci men Type: BLOOD SPECIMEN Ordering Facility: [facility] Address: [address] [place] [address] Performed By: #### 5 7021-8 #### [facility] CLIA [id number] [address] [place] [address] [place] Lymphocytes (Bld) [#/Vol] 2.98 10*3/uL Normal 1.00-4.00 [facility] Comment on above: Order Comment: Speci men Type: BLOOD SPECIMEN Ordering Facility: [facility] Address: [address] [place] [address] Performed By: #### 5 7021-8 #### [facility] CLIA [id number] [address] [place] [address] Lymphocytes/100 WBC (Bld) 22.5 % Normal [facility] Comment on above: Order Comment: Speci men Type: BLOOD SPECIMEN Ordering Facility: [facility] Address: [address] [place] [address] Performed By: #### 5 7021-8 #### [facility] CLIA [id number] [address] [place] [address] [place] MCH (RBC) [Entitic mass] 30.0 pg Normal 26.0-34.0 [facility] Comment on above: Order Comment: Speci men Type: BLOOD SPECIMEN Ordering Facility: [facility] Address: [address] [place] [address] Performed By: #### 5 7021-8 #### [facility] CLIA [id number] [address] [place] MCHC (RBC) [Mass/Vol] 33.4 g/dL Normal 30.5-36.0 [facility] Comment on above: Order Comment: Speci men Type: BLOOD SPECIMEN Ordering Facility: [facility] Address: [address] [place] [address] Performed By: #### 5 7021-8 #### [facility] CLIA [id number] [address] [place] [address] [place] MCV (RBC) [Entitic vol] 89.9 fL Normal 80.0-100.0 [facility] Comment on above: Order Comment: Speci men Type: BLOOD SPECIMEN Ordering Facility: [facility] Address: [address] [place] [address] Performed By: #### 5 7021-8 #### [facility] CLIA [id number] [address] [place] Monocytes (Bld) [#/Vol] 0.85 10*3/uL Normal <0.87 [facility] Comment on above: Order Comment: Speci men Type: BLOOD SPECIMEN Ordering Facility: [facility] Address: [facility] [place] [address] Performed By: #### 5 7021-8 #### [facility] CLIA [id number] [address] [place] [address] [place] Monocytes/100 WBC (Bld) 6.4 % Normal [facility] Comment on above: Order Comment: Speci men Type: BLOOD SPECIMEN Ordering Facility: [facility] Address: [address] [place] [address] Performed By: #### 5 7021-8 #### [facility] CLIA [id number] [address] [place] [address] [place] Neutrophils (Bld) [#/Vol] 9.26 10*3/uL High 1.45-7.50 [facility] Comment on above: Order Comment: Speci men Type: BLOOD SPECIMEN Ordering Facility: [facility] Address: [address] [place] [address] Performed By: #### 5 7021-8 #### [facility] CLIA [id number] [address] [place] [address] [place] Neutrophils/100 WBC (Bld) 70.0 % Normal [facility] Comment on above: Order Comment: Speci men Type: BLOOD SPECIMEN Ordering Facility: [facility] Address: [address] [place] [address] Performed By: #### 5 7021-8 #### [facility] CLIA [id number] [address] [place] [address] [place] Nucleated RBC (Bld) [#/Vol] Normal [facility] Comment on above: Order Comment: Speci men Type: BLOOD SPECIMEN Ordering Facility: [facility] Address: [address] [place] [address] Performed By: #### 5 7021-8 #### [facility] CLIA [id number] [address] [place] [address] [place] Nucleated RBC/100 WBC (Bld) [Ratio] Normal [facility] Comment on above: Order Comment: Speci men Type: BLOOD SPECIMEN Ordering Facility: [facility] Address: [address] [place] [address] Performed By: #### 5 7021-8 #### [facility] CLIA [id number] [address] [place] [address] [place] Platelet mean volume (Bld) [Entitic vol] 9.4 fL Normal 9.0-12.7 [facility] Comment on above: Order Comment: Speci men Type: BLOOD SPECIMEN Ordering Facility: [facility] Address: [address] [place] [address] Performed By: #### 5 7021-8 #### [facility] CLIA [id number] [address] [place] [address] [place] Platelets (Bld) [#/Vol] 347 10*3/uL Normal 150-400 [facility] Comment on above: Order Comment: Speci men Type: BLOOD SPECIMEN Ordering Facility: [facility] Address: [address] [place] [address] Performed By: #### 5 7021-8 #### [facility] CLIA [id number] [address] [place] [address] [place] RBC (Bld) [#/Vol] 5.96 10*6/uL Normal 4.20-6.00 [facility] Comment on above: Order Comment: Speci men Type: BLOOD SPECIMEN Ordering Facility: [facility] Address: [address] [place] [address] Performed By: #### 5 7021-8 #### [facility] CLIA [id number] [address] [place] [address] [place] WBC (Bld) [#/Vol] 13.24 10*3/uL High 3.70-11.00 [facility] Comment on above: Order Comment: Speci men Type: BLOOD SPECIMEN Ordering Facility: [facility] Address: [address] [place], [place] [address] [id number] Performed By: #### 5 7021-8 #### [facility] [place] [id number] [address] [place] [address] [place] [address] ABD/PEL W IVCONon 11-19-[address] ABD/PEL W IVCON * * *Final Report* * * DATE OF EXAM: Dec 28 2023 8:29PM [facility] 0530 - CT ABD/PEL W IVCON / PROCEDURE REASON: Abdominal pain, acute, nonlocalized * * * * Physician Interpretation * * * * EXAMINATION: CT ABDOMEN AND PELVIS WITH IV CONTRAST CLINICAL HISTORY: Abdominal pain TECHNIQUE: CT of the abdomen and pelvis was performed using standard technique, scanning from just above the dome of the diaphragm to the symphysis pubis. MQ: CTAP_3 Contrast: IV: 100 ml of Omnipaque 350 : ml of CT Radiation dose: Integrated Dose-length product (DLP) for this visit = 515.24 mGy*cm. CT Dose Reduction Employed: Automated exposure control(AEC) and iterative recon COMPARISON: 03/25/2022. RESULT: Liver: Subcentimeter hypodensity, too small to characterize Biliary: No bile duct dilation. Gallbladder is unremarkable. Spleen: No mass. No splenomegaly. Pancreas: No mass or duct dilation. Subtle thickening of the fascia by the pancreatic tail, unclear if pancreatic etiology or related to nonspecific left perinephric stranding Adrenals: No mass. Kidneys: Left peripelvic cysts No hydronephrosis GI tract: No dilation or wall thickening. Diverticulosis. Normal appendix Lymph nodes: No abdominal or pelvic lymphadenopathy. Mesentery/Peritoneum: No ascites or mass. Retroperitoneum: No mass. Vasculature: - Abdominal aorta and iliac arteries: No aneurysm. - Celiac and SMA: Patent without stenosis. - Portal venous system (SMV, splenic vein, portal vein and branches): Patent. - Hepatic veins: Patent. Pelvis: No mass, ascites or fluid collection. Bones/Soft Tissues: Small fat-containing ventral abdominal wall hernias Degenerative changes Lower thorax: Unremarkable. Localizer images: No additional findings. IMPRESSION: Question mild acute interstitial pancreatitis at the pancreatic tail vs nonspecific mild fascial thickening Rn Cardiac: MAGDIEL Transcribe Date/Time: Dec 28 2023 9:22P Dictated by : NEMESIO POWELL MD This examination was interpreted and the report reviewed and electronically signed by: NEMESIO POWELL MD on Dec 28 2023 9:33PM EST [id number] Normal [facility] Comprehensive metabolic 2000 panelon 12-28-2023 Albumin [Mass/Vol] 4.0 g/dL Normal 3.9-4.9 [facility] Comment on above: Order Comment: Speci men Type: BLOOD SPECIMEN Ordering Facility: [facility] Address: [address] [place] [address] Performed By: #### 2 4323-8, 3040-3 #### [facility] CLIA [id number] [address] [place] [address] [place] ALP [Catalytic activity/Vol] 96 U/L Normal 38-113 [facility] Comment on above: Order Comment: Speci men Type: BLOOD SPECIMEN Ordering Facility: [facility] Address: [address] [place] [address] Performed By: #### 2 4323-8, 3040-3 #### [facility] CLIA [id number] [address] [place] [address] [place] ALT With P-5'-P [Catalytic activity/Vol] 17 U/L Normal 10-54 [facility] Comment on above: Order Comment: Speci men Type: BLOOD SPECIMEN Ordering Facility: [facility] Address: [address] [place] [address] Performed By: #### 2 4323-8, 3040-3 #### [facility] CLIA [id number] [address] [place] [address] [place] Anion gap [Moles/Vol] 11 mmol/L Normal 8-15 [facility] Comment on above: Order Comment: Speci men Type: BLOOD SPECIMEN Ordering Facility: [facility] Address: [address] [place] [address] Performed By: #### 2 4323-8, 3040-3 #### [facility] CLIA [id number] [address] [facility] [place] [address] [place] AST With P-5'-P [Catalytic activity/Vol] 11 U/L Low 14-40 [facility] Comment on above: Order Comment: Speci men Type: BLOOD SPECIMEN Ordering Facility: [facility] Address: [address] [place] [address] Performed By: #### 2 4323-8, 3040-3 #### [facility] CLIA [id number] [address] [place] [address] [place] Bilirubin [Mass/Vol] 0.4 mg/dL Normal 0.2-1.3 [facility] Comment on above: Order Comment: Speci men Type: BLOOD SPECIMEN Ordering Facility: [facility] Address: [address] [place] [address] Performed By: #### 2 4323-8, 3040-3 #### [facility] CLIA [id number] [address] [place] [address] [place] Calcium [Mass/Vol] 9.3 mg/dL Normal 8.5-10.2 [facility] Comment on above: Order Comment: Speci men Type: BLOOD SPECIMEN Ordering Facility: [facility] Address: [address] [place] [address] Performed By: #### 2 4323-8, 3040-3 #### [facility] CLIA [id number] [address] [place] [address] [place] Chloride [Moles/Vol] 103 mmol/L Normal 98-107 [facility] Comment on above: Order Comment: Speci men Type: BLOOD SPECIMEN Ordering Facility: [facility] Address: [address] [place] [address] Performed By: #### 2 4323-8, 3040-3 #### [facility] CLIA [id number] [address] [place] [address] [place] CO2 [Moles/Vol] 23 mmol/L Normal 22-30 [facility] Comment on above: Order Comment: Speci men Type: BLOOD SPECIMEN Ordering Facility: [facility] Address: [address] [place] [address] Performed By: #### 2 4323-8, 3040-3 #### [facility] CLIA [id number] [address] [place] [address] [place] Creatinine [Mass/Vol] 0.76 mg/dL Normal 0.73-1.22 [facility] Comment on above: Order Comment: Tristin shea Type: BLOOD SPECIMEN Ordering Facility: [facility] Address: [address] [address] Performed By: #### 2 4323-8, 3040-3 #### [facility] CLIA [id number] [address] [place] [address] [facility] [place] Creatinine and Glomerular filtration rate.predicted panel (S/P/Bld) 104 mL/min/1.73m??? Normal >=60 [facility] Comment on above: Order Comment: Tristin shea Type: BLOOD SPECIMEN Ordering Facility: [facility] Address: [address] [address] Result Comment: Chasity mated Glomerular Filtration Rate (eGFR) is calculated using the 2020 CKD-EPI creatinine equation. This equation utilizes serum creatinine, sex, and age as parameters. The creatinine assay has traceable calibration to isotope dilution-mass spectrometry. Refer to KDIGO guidelines for clinical interpretation. In patients with unstable renal function, e.g. those with acute kidney injury, the eGFR may not accurately reflect actual GFR. Performed By: #### 2 4323-8, 3040-3 #### [facility] CLIA [id number] [address] [place] [address] [place] Glucose [Mass/Vol] 202 mg/dL High 74-99 [facility] Comment on above: Order Comment: Tristin monse Type: BLOOD SPECIMEN Ordering Facility: [facility] Address: [address] [address] Result Comment: The [place] Diabetes Association (ADA) provides guidance for cutoff values for fasting glucose and random glucose. The ADA defines fasting as no caloric intake for at least 8 hours. Fasting plasma glucose results between 100 to 125 mg/dL indicate increased risk for diabetes (prediabetes). Fasting plasma glucose results greater than or equal to 126 mg/dL meet the criteria for diagnosis of diabetes. In the absence of unequivocal hyperglycemia, results should be confirmed by repeat testing. In a patient with classic symptoms of hyperglycemia or hyperglycemic crisis, random plasma glucose results greater than or equal to 200 mg/dL meet the criteria for diagnosis of diabetes. Reference: Standards of Medical Care in Diabetes 2016, [place] Diabetes Association. Diabetes Care. 2016.39(Suppl 1). Performed By: #### 2 4323-8, 0-3 #### [facility] CLIA [id number] [address] [place] [address] [place] Potassium [Moles/Vol] 4.2 mmol/L Normal 3.7-5.1 [facility] Comment on above: Order Comment: Tristin shea Type: BLOOD SPECIMEN Ordering Facility: [facility] Address: [address] [place] [address] Performed By: #### 2 4328, 3039-3 #### [facility] CLIA [id number] [address] [place] [address] [place] Protein [Mass/Vol] 6.9 g/dL Normal 6.3-8.0 [facility] Comment on above: Order Comment: Tristin shea Type: BLOOD SPECIMEN Ordering Facility: [facility] Address: [address] [place] [address] Performed By: #### 2 4323-8, 3039-3 #### [facility] CLIA [id number] [address] [place] [address] [place] Sodium [Moles/Vol] 137 mmol/L Normal 136-144 [facility] Comment on above: Order Comment: Tristin shea Type: BLOOD SPECIMEN Ordering Facility: [facility] Address: [address] [place] [address] Performed By: #### 2 4323-8, 3040-3 #### [facility] CLIA [id number] [address] [place] [address] [place] Urea nitrogen [Mass/Vol] 13 mg/dL Normal 9-24 [facility] Comment on above: Order Comment: Speci men Type: BLOOD SPECIMEN Ordering Facility: [facility] Address: [address] [place] [address] Performed By: #### 2 4323-8, 3040-3 #### [facility] CLIA [id number] [address] [place] [address] [place] ED NOTEon 12-28-2023 ED NOTE HNO ID: [id number] Author: DI PICHARDO RN Service: Emergency Medicine Author Type: Registered Nurse Type: ED Notes Filed: 12/28/2023 22:31 Note Text: Assumed care of patient. Report from KAREN Rossi. Patient awake in bed. Call light in reach. Physician at bedside. Normal [facility] ED NOTE HNO ID: [id number] Author: BIANKA DUARTE, RN Service: Nursing Author Type: Registered Nurse Type: ED Notes Filed: 12/28/2023 17:42 Note Text: Pt reports he was taking Bactrim on Wednesday, took it for two days then stopped, pt had diarrhea the day after, felt constipated the next day, then today had nausea and vomiting and some cramping Normal [facility] Lipase SerPl-cCncon 12-28-19 24 Lipase [Catalytic activity/Vol] 164 U/L High 16-61 [facility] Comment on above: Order Comment: Speci men Type: BLOOD SPECIMEN Ordering Facility: [facility] Address: [address] [place] [address] Performed By: #### 2 4323-8, 304-3 #### [facility] CLIA [id number] [address] [place] [address] [facility] [place] Magnesium SerPl-mCncon 12-27 Magnesium [Mass/Vol] 2.1 mg/dL Normal 1.7-2.3 [facility] Comment on above: Order Comment: Speci men Type: BLOOD SPECIMEN Ordering Facility: [facility] Address: [address] [place] [address] Performed By: #### 1 9123-9 #### [facility] CLIA [id number] [address] [place] [address] [facility] Urinalysis complete panel (U )on 12-28-2023 Bacteria LM.HPF (Urine sed) [#/Area] Few Abnormal None Seen [facility] Comment on above: Order Comment: Speci men Type: URINE SPECIMEN Ordering Facility: [facility] Address: [address] [place] [address] Performed By: #### 2 4356-8 #### [facility] CLIA [id number] [address] [place] [address] [facility] [place] Bilirubin Ql (U) Negative Normal Negative [facility] Comment on above: Order Comment: Speci men Type: URINE SPECIMEN Ordering Facility: [facility] Address: [address] [place] [address] Performed By: #### 2 4356-8 #### [facility] CLIA [id number] [address] [place] [address] [facility] Clarity (Unsp spec) Slightly Cloudy Abnormal Clear [facility] Comment on above: Order Comment: Speci men Type: URINE SPECIMEN Ordering Facility: [facility] Address: [address] [place] [address] Performed By: #### 2 4356-8 #### [facility] CLIA [id number] [address] [place] [address] [facility] Color (U) Yellow Normal Yellow [facility] Comment on above: Order Comment: Speci men Type: URINE SPECIMEN Ordering Facility: [facility] Address: [address] [place] [address] Performed By: #### 2 4356-8 #### [facility] CLIA [id number] [address] [place] [address] [facility] [place] Glucose Test strip (U) [Mass/Vol] 1+ Abnormal Negative [facility] Comment on above: Order Comment: Speci men Type: URINE SPECIMEN Ordering Facility: [facility] Address: [address] [place] [address] Performed By: #### 2 4356-8 #### [facility] CLIA [id number] [address] [facility] [place] [address] [place] Hemoglobin Ql (U) Negative Normal Negative [facility] Comment on above: Order Comment: Speci men Type: URINE SPECIMEN Ordering Facility: [facility] Address: [address] [place] [address] Performed By: #### 2 4356-8 #### [facility] CLIA [id number] [address] [place] [address] [place] Ketones Ql (U) Negative Normal Negative [facility] Comment on above: Order Comment: Speci men Type: URINE SPECIMEN Ordering Facility: [facility] Address: [address] [place] [address] Performed By: #### 2 4356-8 #### [facility] CLIA [id number] [address] [place] [address] [place] Leukocyte esterase Test strip Ql (U) Trace Abnormal Negative [facility] Comment on above: Order Comment: Speci men Type: URINE SPECIMEN Ordering Facility: [facility] Address: [address] [place] [address] Performed By: #### 2 4356-8 #### [facility] CLIA [id number] [address] [place] [address] [place] Nitrite Ql (U) Negative Normal Negative [facility] Comment on above: Order Comment: Speci men Type: URINE SPECIMEN Ordering Facility: [facility] Address: [address] [place] [address] Performed By: #### 2 4356-8 #### [facility] CLIA [id number] [address] [place] [address] [place] pH (U) 5.5 [pH] Normal 5.0-8.0 [facility] Comment on above: Order Comment: Speci men Type: URINE SPECIMEN Ordering Facility: [facility] Address: [address] [place] [address] Performed By: #### 2 4356-8 #### [facility] CLIA [id number] [address] [place] [address] [facility] Protein (U) [Mass/Vol] 1+ Abnormal Negative [facility] Comment on above: Order Comment: Speci men Type: URINE SPECIMEN Ordering Facility: [facility] Address: [address] [place] [address] Performed By: #### 2 4356-8 #### [facility] CLIA [id number] [address] [place] [address] [place] RBC LM.HPF (Urine sed) [#/Area] 0-3 /HPF Normal 0-3 /HPF [facility] Comment on above: Order Comment: Speci men Type: URINE SPECIMEN Ordering Facility: [facility] Address: [address] [place] [address] Performed By: #### 2 4356-8 #### [facility] CLIA [id number] [address] Specific gravity (U) [Rel density] 1.015 Normal 1.005-1.030 [facility] Comment on above: Order Comment: Speci men Type: URINE SPECIMEN Ordering Facility: [facility] Address: [address] [place] [address] Performed By: #### 2 4356-8 #### [facility] CLIA [id number] [address] [place], [place] [address] [place] [address] SPERM Present Abnormal None Seen [facility] Comment on above: Order Comment: Speci men Type: URINE SPECIMEN Ordering Facility: [facility] Address: [address] [place] [address] Performed By: #### 2 4356-8 #### [facility] CLIA [id number] [address] [place] Urobilinogen Ql (U) 0.2 EU/dL Normal 0.2-1.0 EU/dL [facility] Comment on above: Order Comment: Speci men Type: URINE SPECIMEN Ordering Facility: [facility] Address: [address] [place] [address] Performed By: #### 2 4356-8 #### [facility] CLIA [id number] [address] [place] [address] [facility] WBC LM.HPF (Urine sed) [#/Area] 6-10 /HPF Abnormal 0-5 /HPF [facility] Comment on above: Order Comment: Speci men Type: URINE SPECIMEN Ordering Facility: [facility] Address: [facility] [place] [address] Performed By: #### 2 4356-8 #### [facility] CLIA [id number] [address] [place] [address] [facility] CNOVon 12-24-2023 CNOV Office Visit (INTMWS ) -- CHADMAYE BURNSLEXUS Garland ([id number]) 1965 M Date Time Provider Department 12/24/23 10:00 AM BRIAN GIBSON INTESTRELLITA During your visit today, we recorded the following information about you: Pulse Blood pressure Weight 54/minute 124/100 75.6 kg Brian Gibson APRN.CRUISE DIRECTOR 12/24/2023 10:42 AM Signed SUBJECTIVE Emma Vasquez is a 58 year old male here today for a check up on his medical problems. Chief Complaint Patient presents with: Recheck: [facility] for UTI and noted a high glucose level in urine with dip Anxiety continues and on CPAP for about 1 month without any change in the anxiety. Is waking up in middle of night and has trouble getting back to sleep HPI Emma Vasquez is a 58 year old male. He is an established patient. Here today for follow up. Last visit we discussed MICA, since that visit a month ago he has obtained a CPAP and is using it. After last visit he had an Xray for foot pain which noted mild arthritis. Since last visit he had neuropsych testing done that neurology had referred him for. They noted multiple factors contributing to memory issues including mental health history, cannabis use, anxiety, poor sleep. Referred to sleep med and psychology. He followed up with neuro and recommended the plan for follow up with sleep med, psychology, get hearing aides fixed. Waking at night with worry. Hearing aides fixed. Compliant with PAP therapy. Still getting used to this. Seen in [facility] for UTI. Glucose noted in urine on urine dip. Prior issues with IFG. His medications were reviewed today and his list is now up to date. Medications Current Outpatient Medications Medication Sig Cholecalciferol, Vitamin D3, 50 mcg (2,000 unit) cap Take 1 capsule by mouth once daily. metFORMIN (GLUCOPHAGE) 500 mg tablet Take 1 tablet by mouth two times a day with meals. DULoxetine (CYMBALTA) 30 mg capsule Take 1 capsule by mouth once daily. CPAP/BIPAP/OTHER Type .CPAPSettings into a note to see current settings/supplies/DME information. No current facility-administered medications for this visit. ALLERGIES Allergen Reactions Penicillins Unknown, Hives ACTIVE PROBLEM LIST Type 2 Diabetes Mellitus With Diabetic Polyneuropathy, Without Long-Term Current Use of Insulin (Hcc) - 12/24/2023 Anxiety and Depression - 12/24/2023 Hepatic Steatosis - 06/15/2023 Gallbladder Polyp - 06/15/2023 Vitamin D Deficiency - 06/15/2023 Mica (Obstructive Sleep Apnea) - 06/15/2023 Hypercholesterolemia - 05/22/2022 Moderate Episode of Recurrent Major Depressive Disorder (Hcc) - 04/01/2022 Multiple Renal Cysts - 04/01/2022 Primary Hypertension - 03/03/2022 Memory Difficulties - 03/03/2022 Internal Hemorrhoids - 03/03/2022 History of Colonic Polyps - 06/07/2017 Comment: 06/07/17 25 mm sessile polyp sigmoid colon. 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 Rec: 6mo follow up Tobacco Use - 05/12/2017 Social History Tobacco Use Smoking status: Every Day Current packs/day: 1.00 Average packs/day: 1 pack/day for 17.0 years (17.0 ttl pk-yrs) Types: Cigarettes Smokeless tobacco: Former Vaping Use Vaping status: Never Used Substance Use Topics Alcohol use: Yes Alcohol/week: 21.0 standard drinks of alcohol Types: 21 Cans of Beer (12oz) per week Drug use: Yes Comment: past use of crack and marijuana Review of Systems Respiratory: Negative. Cardiovascular: Negative. OBJECTIVE BP 124/100 Pulse 54 Wt 166 lb 10.7 oz (75.6kg) SpO2 97% Physical Exam Vitals and nursing note reviewed. Constitutional: General: He is awake. He is not in acute distress. Appearance: Normal appearance. He is well-developed and well-groomed. He is not ill-appearing, toxic-appearing or diaphoretic. HENT: Head: Normocephalic. Right Ear: External ear normal. Left Ear: External ear normal. Nose: Nose normal. Eyes: General: Vision grossly intact. Conjunctiva/sclera: Conjunctivae normal. Pupils: Pupils are equal, round, and reactive to light. Neck: Vascular: No JVD. Trachea: Trachea normal. Cardiovascular: Rate and Rhythm: Normal rate and regular rhythm. Pulses: Normal pulses. Heart sounds: Normal heart sounds. No murmur heard. Pulmonary: Effort: Pulmonary effort is normal. No accessory muscle usage, prolonged expiration or respiratory distress. Breath sounds: Normal breath sounds. Musculoskeletal: Cervical back: Neck supple. Skin: General: Skin is warm and dry. Capillary Refill: Capillary refill takes less than 2 seconds. Neurological: General: No focal deficit present. Mental Status: He is alert and oriented to person, place, and time. Mental status is at baseline. Psychiatric: Attention and Perception: Attention and perception normal. Mood and Affect: Mood and affect normal. Speech: Speech normal. Behavior: Behavior normal. Behavior is cooperative. (more content not included)... Normal [facility] Bacteria Ur Culton Bacteria identified Cx Nom (U) ORGANISM ID: 1 >=100,000 CFU/ml Streptococcus agalactiae (group b streptococcus) Susceptibility testing not performed on beta hemolytic streptococci due to predictable susceptibility to penicillin and other beta lactams. For testing, call Microbiology within 72 hours. Normal [facility] Comment on above: Performed By: #### 6 30-4 ####[facility] LABCLIA [id number] [place] [address] [place] CNOVon 12-21-2023 CNOV Office Visit (UCWSTR ) -- EMMA VASUQEZ Dada ([id number]) 1965 M Date Time Provider Department 12/21/23 3:45 PM HAYDEN CONNER [facility] [[email or web address]] During your visit today, we recorded the following information about you: Temperature Pulse Respiration Blood pressure 97.6 degrees 90/minute 16/minute 130/78 Weight 78.3 kg Hayden Conner APRN.CRUISE DIRECTOR 12/21/2023 4:07 PM Signed Subjective HPI Nontoxic-appearing male presents urgent care chief complaint possible UTI. Duration of symptoms 1 day. Associated symptoms dysuria. OTC medications none. History of UTIs. No penile discharge testicular pain scrotal swelling hematuria. No concerns for STDs. Past medical history prescription medications allergies reviewed. .Patient presents with: Urinary Problem: pain with urination x 1 day PAST MEDICAL HISTORY Diagnosis Date Essential hypertension Hemorrhoids History of colonic polyps 06/07/2017 06/07/17 25 mm sessile polyp sigmoid colon. 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 Rec: 6mo follow up Hypercholesterolemia 05/22/2022 Moderate episode of recurrent major depressive disorder (HCC) 04/01/2022 Multiple renal cysts 04/01/2022 Primary hypertension 03/03/2022 Smoker Tobacco use 05/12/2017 PAST SURGICAL HISTORY Procedure Laterality Date COLONOSCOPY FLX DX W/COLLJ SPEC WHEN PFRMD 06/07/2017 Colonoscopy ALLERGIES Penicillins MEDICATIONS CPAP/BIPAP/OTHER Type .CPAPSettings into a note to see current settings/supplies/DME information. Cholecalciferol, Vitamin D3, 50 mcg (2,000 unit) cap Take 1 capsule by mouth once daily. (Patient not taking: Reported on 09/20/2023) FAMILY HISTORY Problem Relation Age of Onset Diabetes Mother Heart Father Hypertension Father Social History Tobacco Use Smoking status: Every Day Current packs/day: 1.00 Average packs/day: 1 pack/day for 17.0 years (17.0 ttl pk-yrs) Types: Cigarettes Smokeless tobacco: Former Vaping Use Vaping status: Never Used Substance Use Topics Alcohol use: Yes Alcohol/week: 21.0 standard drinks of alcohol Types: 21 Cans of Beer (12oz) per week Drug use: Yes Comment: past use of crack and marijuana BP 130/78 Pulse 90 Temp 36.4 ?C (97.6 ?F) Resp 16 Wt 78.3 kg (172 lb 9.9 oz) SpO2 96% BMI 27.04 kg/m? Review of Systems Constitutional: Negative for chills, fever and malaise/fatigue. Cardiovascular: Negative for chest pain. Gastrointestinal: Negative for abdominal pain, constipation, diarrhea, nausea and vomiting. Genitourinary: Positive for dysuria. Negative for flank pain, frequency, hematuria and urgency. Musculoskeletal: Negative for myalgias. Objective Physical Exam Vitals and nursing note reviewed. Constitutional: General: He is not in acute distress. Appearance: He is not diaphoretic. HENT: Head: Jaw: No trismus. Right Ear: Hearing normal. No decreased hearing noted. No drainage, swelling or tenderness. Tympanic membrane is not perforated, erythematous or bulging. Left Ear: Hearing normal. No decreased hearing noted. No drainage, swelling or tenderness. Tympanic membrane is not perforated, erythematous or bulging. Mouth/Throat: Pharynx: Uvula midline. No uvula swelling. Tonsils: No tonsillar abscesses. Cardiovascular: Rate and Rhythm: Normal rate and regular rhythm. Pulses: Normal pulses. Pulmonary: Effort: Pulmonary effort is normal. No respiratory distress. Breath sounds: Normal breath sounds. Chest: Chest wall: No tenderness. Abdominal: General: Bowel sounds are normal. There is no distension. Palpations: Abdomen is soft. Abdomen is not rigid. Tenderness: There is no abdominal tenderness. There is no right CVA tenderness, left CVA tenderness, guarding or rebound. Negative signs include Carter's sign and McBurney's sign. Genitourinary: Comments: Deferred exam Musculoskeletal: General: No tenderness. Lymphadenopathy: Head: Right side of head: No submental, submandibular, tonsillar, preauricular, posterior auricular or occipital adenopathy. Left side of head: No submental, submandibular, tonsillar, preauricular, posterior auricular or occipital adenopathy. Cervical: Right cervical: No superficial or posterior cervical adenopathy. Left cervical: No superficial or posterior cervical adenopathy. Skin: General: Skin is warm and dry. Findings: No rash. Neurological: Mental Status: He is alert and oriented to person, place, and time. ASSESSMENT/PLAN: 1. Pain with urination - ICD9: 788.1, ICD10: R30.9 (primary diagnosis) - UA DIP, URINE (POC) - URINE CULTURE 2. Glucose found in urine on examination - ICD9: 791.5, ICD10: R81 - GLUCOSE, BLOOD (POC) Urine positive for blood leukocytes. Also noted that there was glucose in urine. Treat for acute cystitis today with Bactrim. Fingerstick 199. Encouraged to follow-up with PCP for possible A1c to rule out diabetes. Issac (more content not included)... Normal [facility] CNPErica 12-21-2023 CNPN Telephone (INTMWS) -- EMMA VASQUEZ ([id number]) 1965 M Date Time Provider Department 12/21/23 BRIAN GIBSON During your visit today, we recorded the following information about you: Sofiya Arguello RN 12/21/2023 4:26 PM Signed Pt states he is returning a call from [facility]. Reports he was just seen in , and prescribed AB for UTI. Pt reports his urine lab showed high glucose. No messages noted in chart. Pt has appt on Wednesday with Brian. Brian Gibson APRN.CRUISE DIRECTOR 12/21/2023 4:27 PM Signed Noted. Discuss at visit Wednesday. Allergies As of Date: 12/21/2023 Noted Allergy Reaction PENICILLINS 09/05/2014 16 - Unknown 4 - Hives Date Reviewed: 12/21/2023 Reviewed by: Hayden Conner APRN.CRUISE DIRECTOR - Fully Assessed Reason for Visit: Patient Question [1477] Prescriptions as of 12/21/2023 - sulfamethoxazole-trimethop rim (BACTRIM DS) 800-160 mg per tablet Take 1 tablet by mouth two times a day for 7 days. - CPAP/BIPAP/OTHER Type .CPAPSettings into a note to see current settings/supplies/DME information. - Cholecalciferol, Vitamin D3, 50 mcg (2,000 unit) cap Take 1 capsule by mouth once daily. Problem List As Of Date 12/21/2023 Noted Resolved Tobacco use [Z72.0] 05/12/2017 History of colonic polyps [Z86.0100] 06/07/2017 Primary hypertension [I10] 03/03/2022 Memory difficulties [R41.3] 03/03/2022 Internal hemorrhoids [K64.8] 03/03/2022 Moderate episode of recurrent major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 ####[facility] LABCLIA [id number] [place] [address] [place] Immature granulocytes (Bld) [#/Vol] 0.05 10*3/uL Normal <0.10 [facility] Comment on above: Order Comment: Speci men Type: BLOOD SPECIMENOrdering Facility: [facility] Address: [address] [place] [address] Performed By: #### 5 7021-8, 4536-7 ####[facility] LABIA [id number] [place] [address] [place] Immature granulocytes/100 WBC (Bld) 0.4 % Normal [facility] Comment on above: Order Comment: Speci men Type: BLOOD SPECIMENOrdering Facility: [facility] Address: [address] [place] [address] Performed By: #### 5 7021-8, 4536-7 ####[facility] LABIA [id number] [place] [address] [place] Lymphocytes (Bld) [#/Vol] 4.47 10*3/uL High 1.00-4.00 [facility] Comment on above: Order Comment: Speci men Type: BLOOD SPECIMENOrdering Facility: [facility] Address: [address] [place] [address] Performed By: #### 5 7021-8, 4536-7 ####[facility] LABIA [id number] [place] [address] [place] Lymphocytes/100 WBC (Bld) 40.1 % Normal [facility] Comment on above: Order Comment: Speci men Type: BLOOD SPECIMENOrdering Facility: [facility] Address: [address] [place] [address] Performed By: #### 5 7021-8, 7-7 ####[facility] LABIA [id number] [place] [address] [place] MCH (RBC) [Entitic mass] 30.3 pg Normal 26.0-34.0 [facility] Comment on above: Order Comment: Speci men Type: BLOOD SPECIMENOrdering Facility: [facility] Address: [address] [place] [address] Performed By: #### 5 7021-8, 4537-7 ####[facility] LABIA [id number] [place] [address] [place] MCHC (RBC) [Mass/Vol] 33.0 g/dL Normal 30.5-36.0 [facility] Comment on above: Order Comment: Speci men Type: BLOOD SPECIMENOrdering Facility: [facility] Address: [address] [place] [address] Performed By: #### 5 7021-8, 4537-7 ####[facility] [id number] [place] [address] [place] MCV (RBC) [Entitic vol] 91.9 fL Normal 80.0-100.0 [facility] Comment on above: Order Comment: Speci men Type: BLOOD SPECIMENOrdering Facility: [facility] Address: [address] [place] [address] Performed By: #### 5 7021-8, 4537-7 ####[facility] LABIA [id number] [place] [address] [place] Monocytes (Bld) [#/Vol] 0.93 10*3/uL High <0.87 [facility] Comment on above: Order Comment: Speci men Type: BLOOD SPECIMENOrdering Facility: [facility] Address: [address] [place] [address] Performed By: #### 5 7021-8, 4537-7 ####[facility] LABIA [id number] [place] [address] [place] Monocytes/100 WBC (Bld) 8.3 % Normal [facility] Comment on above: Order Comment: Speci men Type: BLOOD SPECIMENOrdering Facility: [facility] Address: [address] [place] [address] Performed By: #### 5 7021-8, 7-7 ####[facility] LABCLIA [id number] [place] [address] [place] Neutrophils (Bld) [#/Vol] 5.39 10*3/uL Normal 1.45-7.50 [facility] Comment on above: Order Comment: Speci men Type: BLOOD SPECIMENOrdering Facility: [facility] Address: [address] [place] [address] Performed By: #### 5 7021-8, 4536-7 ####[facility] LABCLIA [id number] [place] [address] [place] Neutrophils/100 WBC (Bld) 48.5 % Normal [facility] Comment on above: Order Comment: Speci men Type: BLOOD SPECIMENOrdering Facility: [facility] Address: [address] [place] [address] Performed By: #### 5 7021-8, 4536-7 ####[facility] LABCLIA [id number] [place] [address] [place] Nucleated RBC (Bld) [#/Vol] 10*3/uL Normal <0.01 [facility] Comment on above: Order Comment: Speci men Type: BLOOD SPECIMENOrdering Facility: [facility] Address: [address] [place] [address] Performed By: #### 5 7021-8, 4536-7 ####[facility] LABCLIA [id number] [place] [address] [place] Nucleated RBC/100 WBC (Bld) [Ratio] 0.0 /100 WBC Normal [facility] Comment on above: Order Comment: Speci men Type: BLOOD SPECIMENOrdering Facility: [facility] Address: [address] [place] [address] Performed By: #### 5 7021-8, 4537-7 ####[facility] LABCLIA [id number] [place] [address] [place] Platelet mean volume (Bld) [Entitic vol] 9.9 fL Normal 9.0-12.7 [facility] Comment on above: Order Comment: Speci men Type: BLOOD SPECIMENOrdering Facility: [facility] Address: [address] [place] [address] Performed By: #### 5 7021-8, 4537-7 ####[facility] LABCLIA [id number] [place] [address] [place] Platelets (Bld) [#/Vol] 329 10*3/uL Normal 150-400 [facility] Comment on above: Order Comment: Speci men Type: BLOOD SPECIMENOrdering Facility: [facility] Address: [address] [place] [address] Performed By: #### 5 7021-8, 4537-7 ####[facility] LABCLIA [id number] [place] [address] [place] RBC (Bld) [#/Vol] 6.04 10*6/uL High 4.20-6.00 [facility] Comment on above: Order Comment: Speci men Type: BLOOD SPECIMENOrdering Facility: [facility] Address: [address] [place] [address] Performed By: #### 5 7021-8, 4537-7 ####[facility] LABCLIA [id number] [place] [address] [place] WBC (Bld) [#/Vol] 11.14 10*3/uL High 3.70-11.00 [facility] Comment on above: Order Comment: Speci men Type: BLOOD SPECIMENOrdering Facility: [facility] Address: [address] [place] [address] Performed By: #### 5 7021-8, 4537-7 ####[facility] LABCLIA [id number] [id number] [id number] [place] CNOVon 11-22-2023 CNOV Office Visit (INTMWS ) -- EMMA VASQUEZ ([id number]) 1965 M Date Time Provider Department 11/22/23 1:00 PM BRIAN GIBSON INTMWS During your visit today, we recorded the following information about you: Pulse Blood pressure Weight 96/minute 138/96 77.7 kg Brian Gibson APRN.CRUISE DIRECTOR 11/22/2023 4:17 PM Signed SUBJECTIVE Emma Vasquez is a 58 year old male here today for a check up on his medical problems. Chief Complaint Patient presents with: Recheck: discuss sleep study results Pain: bilateral pain that radiates from toes and up to hips starts after standing 2 hours or longer HPI Emma Vasquez is a 58 year old male. He is an established patient. Here today for follow up. Was seen last 10/19. Discussed MICA. Needed titration study for PAP device. Had this done 11/14 and recommended CPAP setting of 6 cm H2o. Using [employer] for DME provider. Has had issues with focus, fatigue and tiredness. Tried going back to work but still noticed a lot of focus issues and trouble. Also getting foot pain, starts in the toes and goes up the leg some. Cold is making this worse. Still looking in to getting hearing aides. [facility] has been working on this. Has neuropsych exam up coming. His medications were reviewed today and his list is now up to date. Medications Current Outpatient Medications Medication Sig CPAP/BIPAP/OTHER Type .CPAPSettings into a note to see current settings/supplies/DME information. Cholecalciferol, Vitamin D3, 50 mcg (2,000 unit) cap Take 1 capsule by mouth once daily. (Patient not taking: Reported on 09/20/2023) No current facility-administered medications for this visit. ALLERGIES Allergen Reactions Penicillins Unknown, Hives ACTIVE PROBLEM LIST Hepatic Steatosis - 06/15/2023 Gallbladder Polyp - 06/15/2023 Vitamin D Deficiency - 06/15/2023 Mica (Obstructive Sleep Apnea) - 06/15/2023 Hypercholesterolemia - 05/22/2022 Moderate Episode of Recurrent Major Depressive Disorder (Hcc) - 04/01/2022 Multiple Renal Cysts - 04/01/2022 Primary Hypertension - 03/03/2022 Memory Difficulties - 03/03/2022 Internal Hemorrhoids - 03/03/2022 History of Colonic Polyps - 06/07/2017 Comment: 06/07/17 25 mm sessile polyp sigmoid colon. 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 Rec: 6mo follow up Tobacco Use - 05/12/2017 Social History Tobacco Use Smoking status: Every Day Current packs/day: 1.00 Average packs/day: 1 pack/day for 17.0 years (17.0 ttl pk-yrs) Types: Cigarettes Smokeless tobacco: Former Vaping Use Vaping status: Never Used Substance Use Topics Alcohol use: Yes Alcohol/week: 21.0 standard drinks of alcohol Types: 21 Cans of Beer (12oz) per week Drug use: Yes Comment: past use of crack and marijuana Review of Systems Constitutional: Positive for fatigue. Respiratory: Negative. Cardiovascular: Negative. Psychiatric/Behavioral: Positive for decreased concentration. OBJECTIVE BP 138/96 Pulse 96 Wt 171 lb 4.8 oz (77.7kg) SpO2 99% Physical Exam Vitals and nursing note reviewed. Constitutional: General: He is awake. He is not in acute distress. Appearance: Normal appearance. He is well-developed and well-groomed. He is not ill-appearing, toxic-appearing or diaphoretic. HENT: Head: Normocephalic. Right Ear: External ear normal. Left Ear: External ear normal. Nose: Nose normal. Eyes: General: Vision grossly intact. Conjunctiva/sclera: Conjunctivae normal. Pupils: Pupils are equal, round, and reactive to light. Neck: Vascular: No JVD. Trachea: Trachea normal. Cardiovascular: Rate and Rhythm: Normal rate and regular rhythm. Pulses: Normal pulses. Heart sounds: Normal heart sounds. No murmur heard. Pulmonary: Effort: Pulmonary effort is normal. No accessory muscle usage, prolonged expiration or respiratory distress. Breath sounds: Normal breath sounds. Musculoskeletal: Cervical back: Neck supple. Skin: General: Skin is warm and dry. Capillary Refill: Capillary refill takes less than 2 seconds. Neurological: General: No focal deficit present. Mental Status: He is alert and oriented to person, place, and time. Mental status is at baseline. Psychiatric: Attention and Perception: Attention and perception normal. Mood and Affect: Mood and affect normal. Speech: Speech normal. Behavior: Behavior normal. Behavior is cooperative. Thought Content: Thought content normal. Cognition and Memory: Cognition and memory normal. Judgment: Judgment normal. ASSESSMENT/PLAN: 1. MICA (obstructive sleep apnea) - ICD9: 327.23, ICD10: G47.33 (primary diagnosis) Updated orders for CPAP of 6, sent to [facility]. - PAP THERAPY ORDER - CPAP/BIPAP/OTHER 2. Chronic fatigue - ICD9: 780.79, ICD10: R53.82 Will update labs, hopefully starting on PAP therapy will help his fatigue some. 3. Primary hypertension - ICD9: 401.9, ICD10: I1 (more content not included)... Normal [facility] CRP SerPl-ncon 11-22-2023 CRP [Mass/Vol] mg/L Normal <0.9 [facility] Comment on above: Order Comment: Speci men Type: BLOOD SPECIMENOrdering Facility: [facility] Address: [address] [place] [address] Performed By: #### 2 4323-8, 1988-5, 3084-1, 15577-6 ####[facility] LABCLIA [id number] [facility] [id number] [address] [place] Comprehensive metabolic 2000 panelon 11-22-2023 Albumin [Mass/Vol] 4.5 g/dL Normal 3.9-4.9 [facility] Comment on above: Order Comment: Speci men Type: BLOOD SPECIMENOrdering Facility: [facility] Address: [address] [place] [address] Performed By: #### 2 4322-09, 1987-06, 3083-02, ####[facility] LABIA [id number] [place] [id number] [place] ALP [Catalytic activity/Vol] 91 U/L Normal 38-113 [facility] Comment on above: Order Comment: Speci men Type: BLOOD SPECIMENOrdering Facility: [facility] Address: [address] [place], [place] [address] Performed By: #### 2 4322-09, 1987-06, 3083-02, ####[facility] LABIA [id number] [place] [address] [place] ALT [Catalytic activity/Vol] 20 U/L Normal 10-54 [facility] Comment on above: Order Comment: Speci men Type: BLOOD SPECIMENOrdering Facility: [facility] Address: [address] [place] [address] Performed By: #### 2 4322-09, 1987-06, 3083-02, ####[facility] [id number] [place] [id number] [place] Anion gap [Moles/Vol] 17 mmol/L High 8-15 [facility] Comment on above: Order Comment: Speci men Type: BLOOD SPECIMENOrdering Facility: [facility] Address: [address] [place], [place] [address] Performed By: #### 2 4322-09, 1987-06, 3083-02, ####[facility] [id number] [place] [id number] [place] AST [Catalytic activity/Vol] 22 U/L Normal 14-40 [facility] Comment on above: Order Comment: Speci men Type: BLOOD SPECIMENOrdering Facility: [facility] Address: [address] [place], [place] [address] Performed By: #### 2 4322-09, 1987-06, 3083-02, ####[facility] LABCLIA [id number] [address] [address] [place] Bilirubin [Mass/Vol] 0.4 mg/dL Normal 0.2-1.3 [facility] Comment on above: Order Comment: Speci men Type: BLOOD SPECIMENOrdering Facility: [facility] Address: [address] [place], [place] [address] Performed By: #### 2 4322-09, 1987-06, 3083-02, ####[facility] LABCLIA [id number] [place] [id number] [place] Calcium [Mass/Vol] 9.6 mg/dL Normal 8.5-10.2 [facility] Comment on above: Order Comment: Speci men Type: BLOOD SPECIMENOrdering Facility: [facility] Address: [address] [place], [place] [address] Performed By: #### 2 4322-09, 1987-06, 3083-02, ####[facility] LABIA [id number] [place] [id number] [place] Chloride [Moles/Vol] 106 mmol/L Normal 98-107 [facility] Comment on above: Order Comment: Speci men Type: BLOOD SPECIMENOrdering Facility: [facility] Address: [address] [place], [place] [address] Performed By: #### 2 4322-09, 1987-06, 3083-02, ####[facility] LABCLIA [id number] [place] [id number] [place] CO2 [Moles/Vol] 21 mmol/L Low 22-30 [facility] Comment on above: Order Comment: Speci men Type: BLOOD SPECIMENOrdering Facility: [facility] Address: [address] [place], [place] [address] Performed By: #### 2 4322-09, 1987-06, 3083-02, ####[facility] LABIA [id number] [place] [id number] [place] Creatinine [Mass/Vol] 0.89 mg/dL Normal 0.73-1.22 [facility] Comment on above: Order Comment: Specamy shea Type: BLOOD SPECIMENOrdering Facility: [facility] Address: [address] [address] Performed By: #### 2 4322-09, 1987-06, 3083-02, ####[facility] [id number] [place] [address] [place] Creatinine and Glomerular filtration rate.predicted panel (S/P/Bld) 99 mL/min/1.73m??? Normal >=60 [facility] Comment on above: Order Comment: Tristin shea Type: BLOOD SPECIMENOrdering Facility: [facility] Address: [address] [place] [address] Result Comment: Chasity mated Glomerular Filtration Rate (eGFR) is calculated using the 2020 CKD-EPI creatinine equation. This equation utilizes serum creatinine, sex, and age as parameters. The creatinine assay has traceable calibration to isotope dilution-mass spectrometry. Refer to KDIGO guidelines for clinical interpretation. In patients with unstable renal function, e.g. those with acute kidney injury, the eGFR may not accurately reflect actual GFR. Performed By: #### 2 4322-09, 1987-06, 3083-02, ####[facility] LABIA [id number] [place] [id number] [place] Glucose [Mass/Vol] 71 mg/dL Low 74-99 [facility] Comment on above: Order Comment: Tristin shea Type: BLOOD SPECIMENOrdering Facility: [facility] Address: [address] [place] [address] Result Comment: The [place] Diabetes Association (ADA) provides guidance for cutoff values for fasting glucose and random glucose. The ADA defines fasting as no caloric intake for at least 8 hours. Fasting plasma glucose results between 100 to 125 mg/dL indicate increased risk for diabetes (prediabetes). Fasting plasma glucose results greater than or equal to 126 mg/dL meet the criteria for diagnosis of diabetes. In the absence of unequivocal hyperglycemia, results should be confirmed by repeat testing. In a patient with classic symptoms of hyperglycemia or hyperglycemic crisis, random plasma glucose results greater than or equal to 200 mg/dL meet the criteria for diagnosis of diabetes. Reference: Standards of Medical Care in Diabetes 2016, [place] Diabetes Association. Diabetes Care. 2016.39(Suppl 1). Performed By: #### 2 4322-09, 1987-06, 3083-02, ####[facility] LABCLIA [id number] [place] [id number] [place] Potassium [Moles/Vol] 4.0 mmol/L Normal 3.7-5.1 [facility] Comment on above: Order Comment: Speci men Type: BLOOD SPECIMENOrdering Facility: [facility] Address: [address] [place] [address] Performed By: #### 2 4322-09, 1987-06, 3083-02, ####[facility] LABIA [id number] [place] [id number] [place] Protein [Mass/Vol] 7.4 g/dL Normal 6.3-8.0 [facility] Comment on above: Order Comment: Speci men Type: BLOOD SPECIMENOrdering Facility: [facility] Address: [address] [place], [place] [phone] Performed By: #### 2 4322-09, 1987-06, 3083-02, ####[facility] LABIA [id number] [place] [id number] [place] Sodium [Moles/Vol] 144 mmol/L Normal 136-144 [facility] Comment on above: Order Comment: Speci men Type: BLOOD SPECIMENOrdering Facility: [facility] Address: [address] [place], [place] [phone] Performed By: #### 2 4322-09, 1987-06, 3083-02, ####[facility] [id number] [place] [id number] [place] Urea nitrogen [Mass/Vol] 12 mg/dL Normal 9-24 [facility] Comment on above: Order Comment: Speci men Type: BLOOD SPECIMENOrdering Facility: [facility] Address: [address] [place] [address] Performed By: #### 2 4322-09, 1987-06, 3083-02, ####[facility] [id number] [place] [address] [place] ESR Westergren method (Bld) [Velocity]on 11-22-2023 ESR (Bld) [Velocity] 2 mm/h Normal 0-15 [facility] Comment on above: Order Comment: Speci men Type: BLOOD SPECIMENOrdering Facility: [facility] Address: [address] [place] [address] Performed By: #### 5 7021-8, 4537-7 ####[facility] [id number] [place] [address] [place] Rheumatoid fact SerPl-aCncon 11-22-2023 Rheumatoid factor Qn [IU]/mL Normal <16 [facility] Comment on above: Order Comment: Speci men Type: BLOOD SPECIMENOrdering Facility: [facility] Address: [address] [place] [address] Performed By: #### 2 4328, 1987-06, 3083-02, ####[facility] [id number] [place] [id number] [place] Urate SerPl-mCncon 4 Urate [Mass/Vol] 6.0 mg/dL Normal 4.0-8.1 [facility] Comment on above: Order Comment: Speci men Type: BLOOD SPECIMENOrdering Facility: [facility] Address: [facility] [place] [address] Performed By: #### 2 4323-8, 1988-5, 3084-1, 42479-5 ####[facility] LABCLIA [id number] [place] [id number] [place] Mj 10-21-2023 CNPN Telephone (INTMWS) -- EMMA VASQUEZ ([id number]) 1965 M Date Time Provider Department 10/21/23 BRIAN GIBSON INTMWS During your visit today, we recorded the following information about you: Aleta Engel LPN 10/21/2023 11:40 AM Signed Pt calls requesting to see where Brian is at with the paper for child support .He was hoping could be faxed in to them today. States was speaking of it with her and she was completing during office visit yesterday. Please advise and let pt know. Brian Gibson APRN.CNP 10/22/2023 8:46 AM Signed I completed this paperwork on the day I saw him, it should have been faxed that day also, please let him know. Thanks. Michelle Bourne LPN 10/22/2023 11:24 AM Signed Patient notified of providers message and verbalized understanding. Patient states they states they never received the papers. He states he will call them again and call back to refax them if they can't find them Allergies As of Date: 10/21/2023 Noted Allergy Reaction PENICILLINS 09/05/2014 16 - Unknown 4 - Hives Date Reviewed: 2023 Reviewed by: Brian Gibson APRN.CRUISE DIRECTOR - Fully Assessed Reason for Visit: note for child support [Other] Prescriptions as of 10/22/2023 - CPAP/BIPAP/OTHER Type .CPAPSettings into a note to see current settings/supplies/DME information. - Cholecalciferol, Vitamin D3, 50 mcg (2,000 unit) cap Take 1 capsule by mouth once daily. Problem List As Of Date 10/21/2023 Noted Resolved Tobacco use [Z72.0] 05/12/2017 History of colonic polyps [Z86.010] 06/07/2017 Primary hypertension [I10] 03/03/2022 Memory difficulties [R41.3] 03/03/2022 Internal hemorrhoids [K64.8] 03/03/2022 Moderate episode of recurrent major depressive *04/01/2022 Multiple renal cysts [Q61.02] 04/01/2022 Ventral hernia without obstruction or gangrene *04/01/2022 05/22/2022 Hypercholesterolemia [E78.00] 05/22/2022 Hepatic steatosis [K76.0] 06/15/2023 Gallbladder polyp [K82.4] 06/15/2023 Vitamin D deficiency [E55.9] 06/15/2023 MICA (obstructive sleep apnea) [G47.33] 06/15/2023 Encounter Status:Closed by MICHELLE BOURNE on 10/22/23 [facility] CNOVon 2023 CNOV Office Visit (INTMWS ) -- EMMA VASQUEZ ([id number]) 1965 M Date Time Provider Department 10/20/23 2:40 PM BRIAN GIBSON INTMWS During your visit today, we recorded the following information about you: Pulse Blood pressure Weight 103/minute 125/79 77.5 kg Brian Gibson APRN.CNP 2023 4:31 PM Signed SUBJECTIVE Emma Garland Pedro is a 57 year old male here today for a check up on his medical problems. Chief Complaint Patient presents with: Recheck: discuss medication as he is currently not taking anything. elevated blood pressure continues HPI Emma Vasquez is a 57 year old male. He is an established patient. Here today for follow up. Checking blood pressure at home, not taking medications at this time. Had issues with constipation while taking them and since stopping medication this has resolved. Still tired, fatigued during the day. Smoking about a pack per day. Has not done titration study for sleep apnea to get CPAP. Issues with memory loss and impairment, mild cognitive impairment, hearing difficulty. Concerned about working with being fatigued, hearing impaired. Had evaluation done. Working on getting disability/social security. Seen with neurology and has follow up with them, also following up with neuropsych. His medications were reviewed today and his list is now up to date. Medications Current Outpatient Medications Medication Sig CPAP/BIPAP/OTHER Type .CPAPSettings into a note to see current settings/supplies/DME information. (Patient not taking: Reported on 09/20/2023) Cholecalciferol, Vitamin D3, 50 mcg (2,000 unit) cap Take 1 capsule by mouth once daily. (Patient not taking: Reported on 09/20/2023) No current facility-administered medications for this visit. ALLERGIES Allergen Reactions Penicillins Unknown, Hives ACTIVE PROBLEM LIST Hepatic Steatosis - 06/15/2023 Gallbladder Polyp - 06/15/2023 Vitamin D Deficiency - 06/15/2023 Mica (Obstructive Sleep Apnea) - 06/15/2023 Hypercholesterolemia - 05/22/2022 Moderate Episode of Recurrent Major Depressive Disorder (Hcc) - 04/01/2022 Multiple Renal Cysts - 04/01/2022 Primary Hypertension - 03/03/2022 Memory Difficulties - 03/03/2022 Internal Hemorrhoids - 03/03/2022 History of Colonic Polyps - 06/07/2017 Comment: 06/07/17 25 mm sessile polyp sigmoid colon. 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 Rec: 6mo follow up Tobacco Use - 05/12/2017 Social History Tobacco Use Smoking status: Every Day Current packs/day: 1.00 Average packs/day: 1 pack/day for 17.0 years (17.0 ttl pk-yrs) Types: Cigarettes Smokeless tobacco: Former Vaping Use Vaping status: Never Used Substance Use Topics Alcohol use: Yes Alcohol/week: 21.0 standard drinks of alcohol Types: 21 Cans of Beer (12oz) per week Drug use: Yes Comment: past use of crack and marijuana Review of Systems Constitutional: Positive for fatigue. Respiratory: Negative. Cardiovascular: Negative. OBJECTIVE BP 125/79 Pulse 103 Wt 170 lb 13.7 oz (77.5kg) SpO2 97% Physical Exam Vitals and nursing note reviewed. Constitutional: General: He is awake. He is not in acute distress. Appearance: Normal appearance. He is well-developed and well-groomed. He is not ill-appearing, toxic-appearing or diaphoretic. HENT: Head: Normocephalic. Right Ear: External ear normal. Decreased hearing noted. Left Ear: External ear normal. Decreased hearing noted. Nose: Nose normal. Eyes: General: Vision grossly intact. Conjunctiva/sclera: Conjunctivae normal. Pupils: Pupils are equal, round, and reactive to light. Neck: Vascular: No JVD. Trachea: Trachea normal. Cardiovascular: Rate and Rhythm: Normal rate and regular rhythm. Pulses: Normal pulses. Heart sounds: Normal heart sounds. No murmur heard. Pulmonary: Effort: Pulmonary effort is normal. No accessory muscle usage, prolonged expiration or respiratory distress. Breath sounds: Normal breath sounds. Musculoskeletal: Cervical back: Neck supple. Skin: General: Skin is warm and dry. Capillary Refill: Capillary refill takes less than 2 seconds. Neurological: General: No focal deficit present. Mental Status: He is alert and oriented to person, place, and time. Mental status is at baseline. Psychiatric: Attention and Perception: Attention and perception normal. Mood and Affect: Mood and affect normal. Speech: Speech normal. Behavior: Behavior normal. Behavior is cooperative. Thought Content: Thought content normal. Cognition and Memory: Cognition normal. Memory is impaired. Judgment: Judgment normal. ASSESSMENT/PLAN: 1. MICA (obstructive sleep apnea) - ICD9: 327.23, ICD10: G47.33 (primary diagnosis) Insurance prefers to have a titration study done to set up CPAP, planning to do this at [facility]. Orders sent today. - PAP TITRATION PSG (CPAP, BIPAP, ASV) 2. Chronic fatigue (more content not included)... Normal [facility]j [facility] EM[facility] VASQUE[facility] ([id number]) 1965 M Date Time Provider Department 10/20/23 BRIAN GIBSON During your visit today, we recorded the following information about you: Mary Beth Arteaga LPN 2023 11:45 AM Signed A message was left for Dr. Callaway asking for a fax number to request records from exam provided to patient on 09/06/23. Mary Beth Arteaga LPN 11/02/2023 7:41 AM Signed Encounter closed due to no response. Allergies As of Date: 2023 Noted Allergy Reaction PENICILLINS 09/05/2014 16 - Unknown 4 - Hives Date Reviewed: 2023 Reviewed by: Brian Gibson APRN.CRUISE DIRECTOR - Fully Assessed Reason for Visit: Request Outside Medical Records [[id number]] Prescriptions as of 11/02/2023 - CPAP/BIPAP/OTHER Type .CPAPSettings into a note to see current settings/supplies/DME information. - Cholecalciferol, Vitamin D3, 50 mcg (2,000 unit) cap Take 1 capsule by mouth once daily. Problem List As Of Date 2023 Noted Resolved Tobacco use [Z72.0] 05/12/2017 History of colonic polyps [Z86.010] 06/07/2017 Primary hypertension [I10] 03/03/2022 Memory difficulties [R41.3] 03/03/2022 Internal hemorrhoids [K64.8] 03/03/2022 Moderate episode of recurrent major depressive *04/01/2022 Multiple renal cysts [Q61.02] 04/01/2022 Ventral hernia without obstruction or gangrene *04/01/2022 05/22/2022 Hypercholesterolemia [E78.00] 05/22/2022 Hepatic steatosis [K76.0] 06/15/2023 Gallbladder polyp [K82.4] 06/15/2023 Vitamin D deficiency [E55.9] 06/15/2023 MICA (obstructive sleep apnea) [G47.33] 06/15/2023 Encounter Status:Closed by MARY BETH ARTEAGA on 11/02/23 [facility] CNOVon 09-20-2023 CNOV Office Visit (UCWSTR ) -- EMMA VASQUEZ ([id number]) 1965 M Date Time Provider Department 09/20/23 2:00 PM [email or web address] During your visit today, we recorded the following information about you: Temperature Pulse Respiration Blood pressure 98.7 degrees 102/minute 16/minute 146/84 Weight 78.1 kg Carmella Mayfield APRN.CRUISE DIRECTOR 09/20/2023 2:04 PM Signed Subjective Patient came in and complaints of dog bite on his left abdomen. Patient says this happened yesterday afternoon. Patient says it was his friend's dog who is up-to-date on all shots. Patient says it just gets nervous with strangers. Patient denies any pain redness warmth or drainage at the site. Denies any other symptoms. The history is provided by the patient. No humanities and languages professor was used. Review of Systems Constitutional: Negative. Skin: Negative. Objective Physical Exam Constitutional: Appearance: Normal appearance. Pulmonary: Effort: Pulmonary effort is normal. Abdominal: Comments: Red area sewell scabbed area where tooth may have scratched abdomen. Purple area sewell bruising. No redness warmth or swelling or drainage noted at the site. Neurological: Mental Status: He is alert. PAST MEDICAL HISTORY No date: Essential hypertension No date: Hemorrhoids 06/07/2017: History of colonic polyps Comment: 06/07/17 25 mm sessile polyp sigmoid colon. 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 Rec: 6mo follow up 05/22/2022: Hypercholesterolemia 04/01/2022: Moderate episode of recurrent major depressive disorder (HCC) 04/01/2022: Multiple renal cysts 03/03/2022: Primary hypertension No date: Smoker 05/12/2017: Tobacco use PAST SURGICAL HISTORY 06/07/2017: COLONOSCOPY FLX DX W/COLLJ SPEC WHEN PFRMD Comment: Colonoscopy ALLERGIES Penicillins MEDICATIONS CPAP/BIPAP/OTHER Type .CPAPSettings into a note to see current settings/supplies/DME information. (Patient not taking: Reported on 09/20/2023) atorvastatin (LIPITOR) 20 mg tablet Take 1 tablet by mouth once daily. (Patient not taking: Reported on 09/20/2023) Cholecalciferol, Vitamin D3, 50 mcg (2,000 unit) cap Take 1 capsule by mouth once daily. (Patient not taking: Reported on 09/20/2023) amLODIPine (NORVASC) 5 mg tablet Take 1 tablet by mouth once daily. (Patient not taking: Reported on 09/20/2023) varenicline (CHANTIX STARTING MONTH BOX) 0.5 mg (11)- 1 mg (42) tablet Take 0.5 mg by mouth once daily on Days 1 through 3, THEN 0.5 mg twice daily on Days 4 through 7, THEN 1 mg twice daily on Day 8 and thereafter (Patient not taking: Reported on 09/20/2023) varenicline (CHANTIX CONTINUING MONTH BOX) 1 mg tablet Take 1 tablet by mouth two times a day with meals. Patient should start on July 06, 2023. FAMILY HISTORY Problem Relation Age of Onset Diabetes Mother Heart Father Hypertension Father Social History Tobacco Use Smoking status: Every Day Packs/day: 1.00 Years: 17.00 Additional pack years: 0.00 Total pack years: 17.00 Types: Cigarettes Smokeless tobacco: Former Vaping Use Vaping Use: Never used Substance Use Topics Alcohol use: Yes Alcohol/week: 21.0 standard drinks of alcohol Types: 21 Cans of Beer (12oz) per week Drug use: Yes Comment: past use of crack and marijuana ASSESSMENT/PLAN: 1. Puncture wound - ICD9: 879.8, ICD10: T14.8XXA At this time wound does not appear to be infected. Patient was instructed to keep it clean and dry and wash with an antibacterial soap. Patient was instructed to watch for redness warmth swelling pain drainage and follow-up if anything changes or worsens. Patient was okay with this care plan. Carmella Mayfield APRN.CRUISE DIRECTOR Allergies As of Date: 09/20/2023 Noted Allergy Reaction PENICILLINS 09/05/2014 16 - Unknown 4 - Hives Date Reviewed: 09/20/2023 Reviewed by: Geneva Beckford LPN - Fully Assessed Reason for Visit: Dog Bite [04642] Cmt: Dog bite left side of abdomen x 1 day Primary Visit Diagnosis:Puncture wound [T14.8XXA] Prescriptions as of 09/20/2023 - CPAP/BIPAP/OTHER Type .CPAPSettings into a note to see current settings/supplies/DME information. - atorvastatin (LIPITOR) 20 mg tablet Take 1 tablet by mouth once daily. - Cholecalciferol, Vitamin D3, 50 mcg (2,000 unit) cap Take 1 capsule by mouth once daily. - amLODIPine (NORVASC) 5 mg tablet Take 1 tablet by mouth once daily. - varenicline (CHANTIX STARTING MONTH BOX) 0.5 mg (11)- 1 mg (42) tablet Take 0.5 mg by mouth once daily on Days 1 through 3, THEN 0.5 mg twice daily on Days 4 through 7, THEN 1 mg twice daily on Day 8 and thereafter - varenicline (CHANTIX CONTINUING MONTH BOX) 1 mg tablet Take 1 tablet by mouth two times a day with meals. Patient should start on July 06, 2023. Problem List As Of Date 09/20/2023 Noted Resolved Tobacco use [Z72.0] 05/12/2017 History of colonic polyps [Z86.010] 06/07/2017 Primary hypertension (more content not included)... Normal [facility] CNOVon 08-24-2023 CNOV Office Visit (RENETTA ) -- EMMA VASQUEZ ([id number]) 1965 M Date Time Provider Department 08/24/23 11:30 AM CLAUDINE CALDERON During your visit today, we recorded the following information about you: Pulse Respiration Blood pressure Weight 90/minute 18/minute 156/98 77.6 kg Claudine Calderon PA-C 08/24/2023 12:18 PM Signed ESTABLISHED PATIENT VISIT Last visit: 03/31/22 Assessment AND Plan: Emma Vasquez is a 56 year old left-handed male with a history of hypertension, 12 year crack cocaine use, depression. His examination demonstrates hearing loss. MoCA of but with noted hearing difficulties of the test. Mild asymmetry of smile, patient believes this to be chronic, denies any incidence of stroke. Patient with gradual worsening of short-term memory over the last 5 years, worse over the last year. 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 Patient endorses history of likely sleep apnea in the past, never followed up with sleep study, snoring has worsened over the last few years and patient notes that he only gets about 5 hours of sleep at night. Patient also with history of depression, currently taking Wellbutrin but does not believe this is helping. Patient with signs and symptoms of mild cognitive impairment, however patient with hearing difficulty on exam and noticeable depression which may likely be contributing. Patient also with vitamin D level of 20, notes that this is being supplemented through primary care. Additionally, patient with history of sleep apnea, but never had official sleep test as he never had this done, will refer to sleep medicine. Due to difficulty hearing throughout interview and MoCA, will refer to ENT and have audiology testing done. Regarding his depression, primary care manages this and patient notes he has an appointment tomorrow. Encouraged patient to talk about this at his appointment tomorrow, as depression likely contributes to his memory. At this time, clear etiology of patient's memory issues is not apparent, may be multifactorial including depression, lack of sleep, hearing loss. Patient also with 12-year history of crack cocaine use which may be contributing as well. No signs or symptoms of Parkinson's on exam, no history of stroke, patient denies any personality change, however, notes that his friend recently told him that he has become meaner lately. Patient was not overtly inappropriately emotional throughout MoCA or exam, did notice some depression. We will have patient complete additional neuropsychological testing as MoCA was consistent for , patient still driving. Educated on driving cessation until further work-up is done, patient acknowledged understanding to this. Will obtain MRI of the brain with volumetric analysis to look for signs of dementia, rule out any stroke. Patient agreeable to treatment plan of care at this time, all questions were answered. Patient to follow-up in 3 months or sooner should any symptoms change or worsen. Emma was seen today for new patient. Diagnoses and all orders for this visit: Mild cognitive impairment Hearing difficulty of both ears - CONSULT TO ENT; Future - HEARING TEST/AUDIOGRAM Snoring - CONSULT TO SLEEP MEDICINE - ADULT; Future Memory loss - NEUROPSYCHOLOGICAL TESTING CONSULT Dementia without behavioral disturbance (HCC) - MRI BRAIN WO IVCON; Future He should return to see me in 3 months. I spent a total of 55 minutes on the date of the service which included preparing to see the patient, [id number] patient care, completing clinical documentation, obtaining and/or reviewing separately obtained history, performing a medically appropriate examination, counseling and educating the patient/family/caregiver, and ordering medications, tests, or procedures. Claudine Calderon PA-C [facility] Neurology CHIEF COMPLAINT: follow up HISTORY OF PRESENT ILLNESS: Emma Vasquez is a 57 year old male, There were no vitals taken for this visit. with a PMH significant for hypertension, 12 year crack cocaine use, depression. Last seen 03/31/22 for MCI, gradual short term memory concerns over the last five years. Has moderate sleep apnea and depression. MRI wnl. Did refer to ENT for audiology testing and hearing loss. Also history of crack-cocaine use for 12 years. MoCA was and neuropsych testing ordered. Patient presents for follow-up for memory loss. Notes that since last appointment he driving back to work but states he keeps forgetting what he is doing middle doing it. Has some difficulties focusing on the job. Still driving without an issue, not getting lost, no accidents or tickets. No falls since last appointment. Does not drink much water and primarily drinks energy (more content not included)... Normal [facility] CNOVon 08-10-2023 CNOV Office Visit (UCWSTR ) -- EMMA VASQUEZ Dada ([id number]) 1965 M Date Time Provider Department 08/10/23 11:00 AM CARMELLA MAYFIELDWSTR During your visit today, we recorded the following information about you: Temperature Pulse Respiration Blood pressure 97.8 degrees 96/minute 16/minute 132/80 Weight 77.7 kg Carmella Mayfield APRN.CRUISE DIRECTOR 08/10/2023 11:34 AM Signed Subjective Patient came in with complaints of rectal burning and discomfort. Patient says it feels like it is up inside his rectum. Patient denies any pain when sitting. Patient denies any difficulty urinating. Patient says he is urinating more frequently. Patient does have a colonoscopy and EGD ordered. Has not scheduled them yet. were ordered back in January. Patient denies any fever chills nausea vomiting. Patient says he does have to take stool softeners to keep from getting constipated. The history is provided by the patient. No humanities and languages professor was used. Review of Systems Constitutional: Negative. Skin: Negative. Objective Physical Exam Constitutional: Appearance: Normal appearance. Pulmonary: Effort: Pulmonary effort is normal. Genitourinary: Comments: Rectum appears normal no abnormal findings. Airconditioning Drafting Officer was present. Neurological: Mental Status: He is alert. PAST MEDICAL HISTORY Diagnosis Date Essential hypertension Hemorrhoids History of colonic polyps 06/07/2017 06/07/17 25 mm sessile polyp sigmoid colon. 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 Rec: 6mo follow up Hypercholesterolemia 05/22/2022 Moderate episode of recurrent major depressive disorder (HCC) 04/01/2022 Multiple renal cysts 04/01/2022 Primary hypertension 03/03/2022 Smoker Tobacco use 05/12/2017 PAST SURGICAL HISTORY Procedure Laterality Date COLONOSCOPY FLX DX W/COLLJ SPEC WHEN PFRMD 06/07/2017 Colonoscopy ALLERGIES Penicillins MEDICATIONS CPAP/BIPAP/OTHER Type .CPAPSettings into a note to see current settings/supplies/DME information. atorvastatin (LIPITOR) 20 mg tablet Take 1 tablet by mouth once daily. Cholecalciferol, Vitamin D3, 50 mcg (2,000 unit) cap Take 1 capsule by mouth once daily. amLODIPine (NORVASC) 5 mg tablet Take 1 tablet by mouth once daily. varenicline (CHANTIX STARTING MONTH BOX) 0.5 mg (11)- 1 mg (42) tablet Take 0.5 mg by mouth once daily on Days 1 through 3, THEN 0.5 mg twice daily on Days 4 through 7, THEN 1 mg twice daily on Day 8 and thereafter varenicline (CHANTIX CONTINUING MONTH BOX) 1 mg tablet Take 1 tablet by mouth two times a day with meals. Patient should start on July 06, 2023. FAMILY HISTORY Problem Relation Age of Onset Diabetes Mother Heart Father Hypertension Father Social History Tobacco Use Smoking status: Every Day Packs/day: 1.00 Years: 17.00 Additional pack years: 0.00 Total pack years: 17.00 Types: Cigarettes Smokeless tobacco: Former Vaping Use Vaping Use: Never used Substance Use Topics Alcohol use: Yes Alcohol/week: 21.0 standard drinks of alcohol Types: 21 Cans of Beer (12oz) per week Drug use: Yes Comment: past use of crack and marijuana ASSESSMENT/PLAN: 1. Urinary frequency - ICD9: 788.41, ICD10: R35.0 (primary diagnosis) - UA DIP, URINE (POC) No culture was sent due to urine dip being negative. And patient not actually having any pain when he urinates. 2. Rectal pain - ICD9: 569.42, ICD10: K62.89 Patient was educated that he really does need to follow-up with ordering the colonoscopy. At this point no abnormal findings. Patient will follow-up and get his colonoscopy scheduled. Carmella Mayfield APRN.CRUISE DIRECTOR Allergies As of Date: 08/10/2023 Noted Allergy Reaction PENICILLINS 09/05/2014 16 - Unknown 4 - Hives Date Reviewed: 08/10/2023 Reviewed by: Christy Segundo MA - Fully Assessed Reason for Visit: Urinary Frequency [1086] Cmt: burning with urination x 3 days Primary Visit Diagnosis:Urinary frequency [R35.0] Other Visit Diagnosis:Rectal pain [K62.89] Order(s):UA DIP, URINE (POC) [0421079] Order #: [id number]. #:[id number] Prescriptions as of 08/10/2023 - CPAP/BIPAP/OTHER Type .CPAPSettings into a note to see current settings/supplies/DME information. - atorvastatin (LIPITOR) 20 mg tablet Take 1 tablet by mouth once daily. - Cholecalciferol, Vitamin D3, 50 mcg (2,000 unit) cap Take 1 capsule by mouth once daily. - amLODIPine (NORVASC) 5 mg tablet Take 1 tablet by mouth once daily. - varenicline (CHANTIX STARTING MONTH BOX) 0.5 mg (11)- 1 mg (42) tablet Take 0.5 mg by mouth once daily on Days 1 through 3, THEN 0.5 mg twice daily on Days 4 through 7, THEN 1 mg twice daily on Day 8 and thereafter - varenicline (CHANTIX CONTINUING MONTH BOX) 1 mg tablet Take 1 tablet by mouth two times a day with meals. Patient should start on July 06, 2023. Medication notes this encounter VARENICLINE 1 MG TABLET >> Ratna, (more content not included)... Normal [facility] UA DIP, URINE (POC)on 2023 BILIRUBIN UA (POCT) Negative Negative [facility] CLARITY UA (POCT) Clear [facility] COLOR UA (POCT) Yellow [facility] GLUCOSE UA (POCT) Negative Negative mg/dL [facility] Hemoglobin Ql (U) Negative Negative [facility] KETONE UA (POCT) Negative Negative mg/dL [facility] LEUKOCYTES UA (POCT) Negative Negative [facility] NITRITE UA (POCT) Negative Negative [facility] PH UA (POCT) 5.0 4.5 - 8.0 [facility] Protein Ql (U) Negative Negative mg/dL [facility] SPECIFIC GRAVITY UA (POCT) 1.015 1.005 - 1.030 [facility] UROBILINOGEN UA (POCT) 0.2 Normal E.U./dL [facility] Location:[facility], [address] [place] [address], [place], [place], [id number] [place] [address] POINT OF CARE [facility] .Auto Diffon 07-12-2023 Basophil, Absolute 0.1 10 3/mcL Normal 0.0-0.2 [facility] ([place]) Comment on above: Performed By: #### G FR, CBC, CMP, MDW, ANEU, ADADRIAN, LIP ####[address] [place], [place] [address] Basophils/100 WBC (Bld) 0.6 % Normal 0.0-2.5 [facility] ([place]) Comment on above: Performed By: #### G FR, CBC, CMP, MDW, ANEU, ADIFF, LIP ####[address] [place], [place] [address] Eosinophil, Absolute 0.3 10 3/mcL Normal 0.0-0.4 [facility] ([place]) Comment on above: Performed By: #### G FR, CBC, CMP, MDW, ANEU, ADIFF, LIP ####[address] [place], [place] [address] Eosinophils/100 WBC (Bld) 3.6 % Normal 0.0-7.0 [facility] ([place]) Comment on above: Performed By: #### G FR, CBC, CMP, MDW, ANEU, ADIFF, LIP ####[address] [place], [place] [address] Lymphocyte, Absolute 3.1 10 3/mcL Normal 0.8-3.9 [facility] ([place]) Comment on above: Performed By: #### G FR, CBC, CMP, MDW, ANEU, ADIFF, LIP ####[address] [place], [place] [address] Lymphocytes/100 WBC (Bld) 35.1 % Normal 10.0-50.0 [facility] ([place]) Comment on above: Performed By: #### G FR, CBC, CMP, MDW, ANEU, ADIFF, LIP ####[address] [place], [place] [address] Monocyte, Absolute 0.8 10 3/mcL Normal 0.2-1.0 [facility] ([place]) Comment on above: Performed By: #### G FR, CBC, CMP, MDW, ANEU, ADIFF, LIP ####[address] [place], [place] [address] Monocytes/100 WBC (Bld) 8.5 % Normal 1.7-13.0 [facility] ([place]) Comment on above: Performed By: #### G FR, CBC, CMP, MDW, ANEU, ADIFF, LIP ####[address] [place], [place] [address] Neutrophils/100 WBC (Bld) 52.2 % Normal 37.0-80.0 [facility] ([place]) Comment on above: Performed By: #### G FR, CBC, CMP, MDW, ANEU, ADIFF, LIP ####[address] [place], [place] [address] .GFRon 07-12-2023 GFR Non- 89 ml/min/1.73sqm Normal [facility] ([place]) Comment on above: Result Comment: GFR Population mean for , Non- Americans Ages 20-29 = 116 mL/min/1.73 sq.m. Ages 30-39 = 107 mL/min/1.73 sq.m. Ages 40-49 = 99 mL/min/1.73 sq.m. Ages 50-59 = 93 mL/min/1.73 sq.m. Ages 60-69 = 85 mL/min/1.73 sq.m. Ages 70+ = 75 mL/min/1.73 sq.m. Chronic Kidney Disease: Less than 60 mL/min/1.73 square meters End Stage Renal Disease: Less than 15 mL/min/1.73 square meters Performed By: #### M ALBR #### [address] [place], [place] [address] GFR 108 ml/min/1.73sqm Normal [facility] ([place]) Comment on above: Result Comment: GFR Population mean for , Non- Americans Ages 20-29 = 116 mL/min/1.73 sq.m. Ages 30-39 = 107 mL/min/1.73 sq.m. Ages 40-49 = 99 mL/min/1.73 sq.m. Ages 50-59 = 93 mL/min/1.73 sq.m. Ages 60-69 = 85 mL/min/1.73 sq.m. Ages 70+ = 75 mL/min/1.73 sq.m. Chronic Kidney Disease: Less than 60 mL/min/1.73 square meters End Stage Renal Disease: Less than 15 mL/min/1.73 square meters Performed By: #### M ALBR #### [facility] [address] [place], [place] [address] .MDWon 07-12-2023 Monocyte Distribution Width 16.50 Normal 0.00-20.00 [facility] ([place]) Comment on above: Result Comment: For ED adult patients suspected of sepsis, MDW<=20.0 does not rule out sepsis or risk of sepsis Performed By: #### G FR, CBC, CMP, MDW, ANEU, ADIFF, LIP ####[address] [place], [place] [address] .NEUABSon 07-12-2023 Neutrophil, Absolute 4.7 10 3/mcL Normal 2.9-6.2 [facility] ([place]) Comment on above: Performed By: #### G FR, CBC, CMP, MDW, ANEU, ADIFF, LIP ####[address] [place] [id number] CBCon 07-12-2023 Erythrocyte distribution width (RBC) [Ratio] 13.9 % Normal 11.5-14.5 [facility] ([place]) Comment on above: Performed By: #### G FR, CBC, CMP, MDW, ANEU, ADIFF, LIP ####[address] [place], [place] [address] Hematocrit (Bld) [Volume fraction] 49.3 % Normal 42.0-52.0 [facility] ([place] Comment on above: Performed By: #### G FR, CBC, CMP, MDW, ANEU, ADIFF, LIP ####[address] [place], [place] [address] Hgb 16.9 G/dL Normal 14.0-18.0 [facility] ([place]) Comment on above: Performed By: #### G FR, CBC, CMP, MDW, ANEU, ADIFF, LIP ####[address] [place], [place] [address] MCH (RBC) [Entitic mass] 31.0 pg Normal 27.0-31.2 [facility] ([place]) Comment on above: Performed By: #### G FR, CBC, CMP, MDW, ANEU, ADIFF, LIP ####[address] [place], [place] [address] MCHC 34.3 G/dL Normal 31.8-35.4 [facility] ([place]) Comment on above: Performed By: #### G FR, CBC, CMP, MDW, ANEU, ADIFF, LIP ####[address] [place], [place] [address] MCV (RBC) [Entitic vol] 90.2 fL Normal 80.0-94.0 [facility] ([place]) Comment on above: Performed By: #### G FR, CBC, CMP, MDW, ANEU, ADIFF, LIP ####[address] [place], [place] [address] Platelet 286 10 3/mcL Normal 130-400 [facility] ([place]) Comment on above: Performed By: #### G FR, CBC, CMP, MDW, ANEU, ADIFF, LIP ####[address] [place], [place] [address] Platelet mean volume (Bld) [Entitic vol] 7.5 fL Normal 7.4-10.4 [facility] ([place]) Comment on above: Performed By: #### G FR, CBC, CMP, MDW, ANEU, ADIFF, LIP ####[address] [place], [place] [address] RBC 5.47 10 6/mcL Normal 4.04-6.13 [facility] ([place]) Comment on above: Performed By: #### G FR, CBC, CMP, MDW, ANEU, ADIFF, LIP ####[address] [place], [place] [address] WBC 9.0 10 3/mcL Normal 4.6-10.8 [facility] ([place]) Comment on above: Performed By: #### G FR, CBC, CMP, MDW, ANEU, ADIFF, LIP ####[address] [place], [place] [address] CMPon 07-12-2023 Albumin Level 3.7 G/dL Normal 3.5-5.0 [facility] ([place] Comment on above: Performed By: #### G FR, CBC, CMP, MDW, ANEU, ADIFF, LIP ####[address] [place], [place] [address] Albumin/Globulin [Mass ratio] 1.1 {ratio} Normal 1.1-2.5 [facility] ([place]) Comment on above: Performed By: #### G FR, CBC, CMP, MDW, ANEU, ADIFF, LIP ####[address] [place], [place] [address] ALP [Catalytic activity/Vol] 105 U/L Normal 40-135 [facility] ([place]) Comment on above: Performed By: #### G FR, CBC, CMP, MDW, ANEU, ADIFF, LIP ####[address] [place], [place] [address] ALT [Catalytic activity/Vol] 44 U/L Normal 16-63 [facility] ([place]) Comment on above: Performed By: #### G FR, CBC, CMP, MDW, ANEU, ADIFF, LIP ####[address] [place], [place] [address] AST [Catalytic activity/Vol] 18 U/L Normal 10-40 [facility] ([place]) Comment on above: Performed By: #### G FR, CBC, CMP, MDW, ANEU, ADIFF, LIP ####[address] [place], [place] [address] Bili Total 0.4 mg/dL Normal 0.2-1.0 [facility] ([place]) Comment on above: Result Comment: Use of this assay is not recommended for patients undergoing treatment with eltrombopag due to the potential for falsely elevated results. Performed By: #### G FR, CBC, CMP, MDW, ANEU, ADIFF, LIP ####[address] [place], [place] [address] BUN/Creatinine Ratio 22 ratio Normal 7-27 [facility] ([place]) Comment on above: Performed By: #### G FR, CBC, CMP, MDW, ANEU, ADIFF, LIP ####[address] [place], [place] [address] Calcium [Mass/Vol] 8.8 mg/dL Normal 8.4-10.2 [facility] ([place]) Comment on above: Performed By: #### G FR, CBC, CMP, MDW, ANEU, ADIFF, LIP ####[address] [place], [place] [address] Chloride [Moles/Vol] 104 mmol/L Normal 98-107 [facility] ([place]) Comment on above: Performed By: #### G FR, CBC, CMP, MDW, ANEU, ADIFF, LIP ####[address] [place], [place] [address] CO2 [Moles/Vol] 25 mmol/L Normal 22-29 [facility] ([place]) Comment on above: Performed By: #### G FR, CBC, CMP, MDW, ANEU, ADIFF, LIP ####[address] [place], [place] [address] Creatinine [Mass/Vol] 0.88 mg/dL Normal 0.70-1.30 [facility] ([place]) Comment on above: Performed By: #### G FR, CBC, CMP, MDW, ANEU, ADIFF, LIP ####[address] [place], [place] [address] Electrolyte Balance 13.0 mEq/L Normal 4.0-15.0 [facility] ([place]) Comment on above: Performed By: #### G FR, CBC, CMP, MDW, ANEU, ADIFF, LIP ####[address] [place], [place] [address] Globulin 3.3 G/dL Normal [facility] ([place]) Comment on above: Performed By: #### G FR, CBC, CMP, MDW, ANEU, ADIFF, LIP ####[address] [place], [place] [address] Glucose [Mass/Vol] 162 mg/dL High 70-105 [facility] ([place]) Comment on above: Performed By: #### G FR, CBC, CMP, MDW, ANEU, ADIFF, LIP ####[address] [place], [place] [address] Potassium [Moles/Vol] 4.3 mmol/L Normal 3.5-5.1 [facility] ([place]) Comment on above: Performed By: #### G FR, CBC, CMP, MDW, ANEU, ADIFF, LIP ####[address] [place], [place] [address] Sodium [Moles/Vol] 142 mmol/L Normal 136-145 [facility] ([place]) Comment on above: Performed By: #### G FR, CBC, CMP, MDW, ANEU, ADIFF, LIP ####[address] [place], [place] [address] Total Protein 7.0 G/dL Normal 6.4-8.2 [facility] ([place]) Comment on above: Performed By: #### G FR, CBC, CMP, MDW, ANEU, ADIFF, LIP ####[address] [place], [place] [address] Urea nitrogen [Mass/Vol] 19 mg/dL High 7-18 [facility] ([place]) Comment on above: Performed By: #### G FR, CBC, CMP, MDW, ANEU, ADIFF, LIP ####[address] [place], [place] [address] CNPErica [facility] EM[facility] VASQUE[facility] ([id number]) 1965 M Date Time Provider Department 07/12/23 OJLENE BEAVERS INTWS During your visit today, we recorded the following information about you: Mary Beth Arteaga LPN 07/12/2023 10:29 AM Signed Ajit calling today with complaints of cramping/stiffness in the bladder area that he rates it 8:10 on pain scale. Pain interrupts his sleep at times. Denies any urinary tract infection symptoms. He also had complaints of constipation although he states he has been having small amounts of diarrhea. He feels he is drinking plenty of fluids. Denies any fever. Does complain of no energy. Symptoms started over the weekend. Did see ENT and given Biaxin to treat some fluid behind his ear but only took 4 doses as he felt he was having a reaction to this medication. Patient is questioning if symptoms are related to medications that he started last month. Patient will continue to take the amlodipine but will hold the atorvastatin and vitamin d until he hears further recommendations. Jolene Beavers MD 07/12/2023 10:41 AM Signed Might be having urinary retention. Could have run off stool associated with constipation, and constipation could be causing issues with urinary retention. Not sure if related to Biaxin was given. Consider seeing urology if they have openings--they could do a bladder scan to see whether having significant urinary retention. To ER if pain too severe to wait to see them--in ER they could do stat studies and if having urinary retention, they can catheterize him then have outpatient follow up. Might be able to alleviate pain by treating constipation--see when had last normal BM or at least passed more than a small amount of stool. What has he tried for treating constipation Recommend appointment for further evaluation if symptoms not getting better. Michelle Bourne LPN 07/12/2023 12:49 PM Signed Patient notified of providers message and verbalized understanding. Patient no normal BM since Wednesday and he hasn't used any treatment for constipation except he thought he wasn't drinking enough water so did drink 6-7 glasses of water yesterday and did have a normal BM. However, he woke up this morning with the same problem and the water didn't help. His concern is that he is having a colonoscopy on Wednesday and start prep tomorrow. He is asking if this is going to be a problem. Please advise Mary Beth Arteaga LPN 07/12/2023 2:26 PM Signed Patient returned call and would like to see urology for a bladder scan to check for retention. No provider in urology today but nurse will check with office and contact patient if able to scan patient tomorrow. Antwon Correa PA-C 07/12/2023 7:24 PM Signed Patient can do a Bladder Scan in the office with MA or nurse, that's not an issue. However, if he is retaining urine and needs a Urology consult for testing and therapy recommendations he will need a full 30 min visit, and I need any past Urology provider notes if not [facility]. I have a 10 am opening 07/13/2023 tomorrow. The main issue he had when I saw him in 2020 was Pelvic Floor Dysfunction which can cause all of the current symptoms. He really needs a Pelvic Floor PT Consultation, he never followed- up after I got his records from outside provider to get the PFPT consult orders. That is basically may plan if he sees me in the office. I will look at PVR Urine sample and may do a culture pending UA results and symptoms. If he is not interested in PFPT then its not much I can do, unless the urine and cultures are different now, before he was given a bunch of antibiotics despite no urine cultures showing UTI. JEREMY Roberts, [place], Jolene Mcdowell MD 07/12/2023 7:35 PM Signed Below noted Grateful for options Filed consult order Laurel Villela RN 07/13/2023 8:50 AM Signed Phone call to patient. States he went to [facility] ED and was treated and released. He had a CT done and states "it showed that constipation is the whole issue." Patient declined an appointment with Urology. 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 - atorvastatin (LIPITOR) 20 mg tablet Take 1 tablet by mouth once daily. - Cholecalciferol, Vitamin D3, 50 mcg (2,000 unit (more content not included)... Normal [facility] CT ABD/PELVIS W/ IV CONTRAST ONLYon 07-12-2023 CT ABD/PELVIS W/ IV CONTRAST ONLY ORIGINAL EXAMINATION: CT OF THE ABDOMEN AND PELVIS WITH CONTRAST07/12/2023 6:[address] ABDOMEN/PELVIS WITH CONTRAST TECHNIQUE: CT of the abdomen and pelvis was performed with the administration of intravenous contrast. Multiplanar reformatted images are provided for review. Automated exposure control, iterative reconstruction, and/or weight based adjustment of the mA/kV was utilized to reduce the radiation dose to as low as reasonably achievable. COMPARISON: None available HISTORY: ORDERING SYSTEM PROVIDED HISTORY: Reason for Exam: pain FINDINGS: The size, density, and morphology of the liver, spleen, adrenals, kidneys, pancreas and unopacified loops of bowel are unremarkable. Benign left [place] renal cyst. The opacified aorta demonstrates normal size and morphology without aneurysmal dilation or dissection. There are no enlarged lymph nodes by pathologic size criteria. Appendix is normal. Scattered diverticular noted without inflammatory changes. There is no free fluid within the pelvis. The bladder and pelvic organs have an unremarkable CT appearance. The osseous structures are without gross lytic or sclerotic lesion. The lung bases are clear. IMPRESSION: Diverticulosis without diverticulitis. Interpreted by: Ron Cortes MD Preliminary Report By: Ron Cortes MD Electronically signed By Ron Cortes MD Dictated Date: 07/12/2023 6:42:34 PM Prelim Date: 07/12/2023 6:52:27 PM Sign Date: 07/12/2023 6:52:27 PM Ordering Provider: EMANUEL FINNEY [facility] ([place]) LABORATORYOrdered By: SYSTEM SYSTEM on 07-12-2023 Albumin BCP dye [Mass/Vol] 3.7 G/dL Normal 3.5 - 5.0 G/dL AO ADM SS Albumin/Globulin [Mass ratio] 1.1 {ratio} Normal 1.1 - 2.5 ratio AO ADM SS ALP [Catalytic activity/Vol] 105 U/L Normal 40 - 135 U/L AO ADM SS ALT With P-5'-P [Catalytic activity/Vol] 44 U/L Normal 16 - 63 U/L AO ADM SS AST With P-5'-P [Catalytic activity/Vol] 18 U/L Normal 10 - 40 U/L AO ADM SS Basophil, Absolute 0.1 103/mcL Normal 0.0 - 0.2 10^3/mcL AO Workflow SS Basophils/100 WBC (Bld) 0.6 % Normal 0.0 - 2.5 % AO Workflow SS Bilirubin [Mass/Vol] 0.4 mg/dL Normal 0.2 - 1 .0 mg/dL AO ADM SS Comment on above: Interpretive Data: U se of this assay is not recommended for patients undergoing treatment with eltrombopag due to the potential for falsely elevated results. Calcium [Mass/Vol] 8.8 mg/dL Normal 8.4 - 10. 2 mg/dL AO ADM SS Chloride [Moles/Vol] 104 mmol/L Normal 98 - 10 7 mmol/L AO ADM SS CO2 [Moles/Vol] 25 mmol/L Normal 22 - 29 mmol/L AO ADM SS Creatinine [Mass/Vol] 0.88 mg/dL Normal 0.70 - 1.30 mg/dL AO ADM SS Electrolyte Balance 13.0 mEq/L Normal 4.0 - 15 .0 mEq/L AO ADM SS Eosinophil, Absolute 0.3 103/mcL Normal 0.0 - 0 .4 10^3/mcL AO Workflow SS Eosinophils/100 WBC (Bld) 3.6 % Normal 0.0 - 7.0 % AO Workflow SS Erythrocyte distribution width (RBC) [Ratio] 13.9 % Normal 11.5 - 14.5 % AO Workflow SS GFR/1.73 sq M.predicted among blacks MDRD (S/P/Bld) [Vol rate/Area] 108 ml/min/1.73sqm Invalid Interpretation Code AO Chemistry S Comment on above: Interpretive Data: GFR Population mean for , Non- Americans Ages 20-29 = 116 mL/min/1.73 sq.m. Ages 30-39 = 107 mL/min/1.73 sq.m. Ages 40-49 = 99 mL/min/1.73 sq.m. Ages 50-59 = 93 mL/min/1.73 sq.m. Ages 60-69 = 85 mL/min/1.73 sq.m. Ages 70+ = 75 mL/min/1.73 sq.m. Chronic Kidney Disease: Less than 60 mL/min/1.73 square meters End Stage Renal Disease: Less than 15 mL/min/1.73 square meters GFR/1.73 sq M.predicted among non-blacks MDRD (S/P/Bld) [Vol rate/Area] 89 ml/min/1.73sqm Invalid Interpretation Code AO Chemistry S Comment on above: Interpretive Data: GFR Population mean for , Non- Americans Ages 20-29 = 116 mL/min/1.73 sq.m. Ages 30-39 = 107 mL/min/1.73 sq.m. Ages 40-49 = 99 mL/min/1.73 sq.m. Ages 50-59 = 93 mL/min/1.73 sq.m. Ages 60-69 = 85 mL/min/1.73 sq.m. Ages 70+ = 75 mL/min/1.73 sq.m. Chronic Kidney Disease: Less than 60 mL/min/1.73 square meters End Stage Renal Disease: Less than 15 mL/min/1.73 square meters Globulin 3.3 G/dL Invalid Interpretation Code AO ADM SS Glucose [Mass/Vol] 162 mg/dL High 70 - 105 mg/dL AO ADM SS Hematocrit (Bld) [Volume fraction] 49.3 % Normal 42.0 - 52.0 % AO Workflow SS Hemoglobin (Bld) [Mass/Vol] 16.9 G/dL Normal 14.0 - 18.0 G/dL AO Workflow SS Lipase [Catalytic activity/Vol] 46 U/L Normal 16 - 77 U/L AO ADM SS Lymphocyte, Absolute 3.1 103/mcL Normal 0.8 - 3 .9 10^3/mcL AO Workflow SS Lymphocytes/100 WBC (Bld) 35.1 % Normal 10.0 - 50.0 % AO Workflow SS MCH (RBC) [Entitic mass] 31.0 pg Normal 27.0 - 31.2 pg AO Workflow SS MCHC 34.3 G/dL Normal 31.8 - 35.4 G/dL AO Workflow SS MCV (RBC) [Entitic vol] 90.2 fL Normal 80.0 - 94.0 fL AO Workflow SS Monocyte distribution width Auto (Bld) [Entitic vol] 16.50 1 Normal 0.00 - 20.00 AO Workflow SS Comment on above: Result Comment: For ED adult patients suspected of sepsis, ASUNCION<=20.0 does not rule out sepsis or risk of sepsis Monocyte, Absolute 0.8 103/mcL Normal 0.2 - 1.0 10^3/mcL AO Workflow SS Monocytes/100 WBC (Bld) 8.5 % Normal 1.7 - 13.0 % AO Workflow SS Neutrophil, Absolute 4.7 103/mcL Normal 2.9 - 6 .2 10^3/mcL AO Workflow SS Neutrophils/100 WBC (Bld) 52.2 % Normal 37.0 - 80.0 % AO Workflow SS Platelet mean volume (Bld) [Entitic vol] 7.5 fL Normal 7.4 - 10.4 fL AO Workflow SS Platelets (Bld) [#/Vol] 286 103/mcL Normal 130 - 400 10^3/mcL AO Workflow SS Potassium [Moles/Vol] 4.3 mmol/L Normal 3.5 - 5.1 mmol/L AO ADM SS Protein [Mass/Vol] 7.0 G/dL Normal 6.4 - 8.2 G/dL AO ADM SS RBC (Bld) [#/Vol] 5.47 106/mcL Normal 4.04 - 6.1 3 10^6/mcL AO Workflow SS Sodium [Moles/Vol] 142 mmol/L Normal 136 - 145 mmol/L AO ADM SS Urea nitrogen [Mass/Vol] 19 mg/dL High 7 - 18 mg/dL AO ADM SS Urea nitrogen/Creatinine [Mass ratio] 22 ratio Normal 7 - 27 ratio AO ADM SS WBC (Bld) [#/Vol] 9.0 103/mcL Normal 4.6 - 10.8 10^3/mcL AO Workflow SS LABORATORYOrdered By: Jen Buckley on 07-12-2023 Appearance (U) Clear (07/12/23 6:01 PM) Normal Clear AO Auto Urine SS Bilirubin Ql (U) Negative (07/12/23 6:01 PM) Normal Negative AO Auto Urine SS Color (U) Yellow (07/12/23 6:01 PM) Normal AO Auto Urine SS Glucose Test strip (U) [Mass/Vol] Negative Normal Negative AO Auto Urine SS Hemoglobin Auto test strip (U) [Mass/Vol] Negative (07/12/23 6:01 PM) Normal Negative AO Auto Urine SS Ketones Ql (U) Negative Normal Negative AO Auto Urine SS UA Leuk Est Negative (07/12/23 6:01 PM) Normal Negative AO Auto Urine SS UA Nitrite Negative (07/12/23 6:01 PM) Normal Negative AO Auto Urine SS UA pH 6.0 (07/12/23 6:01 PM) Normal 5.0 - 8.0 AO Auto Urine SS UA Protein Negative Normal Negative AO Auto Urine SS UA Spec Grav 1.020 (07/12/23 6:01 PM) Normal 1.015-1.025 AO Auto Urine SS UA Specimen Type Void (07/12/23 6:01 PM) Normal AO Auto Urine SS UA Urobilinogen 0.2 E.U./dL Normal 0.2-1.0 AO Auto Urine SS LIPon 07-12-2023 Lipase Level 46 U/L Normal 16-77 [facility] ([place]) Comment on above: Performed By: #### G FR, CBC, CMP, MDW, ANEU, ADIFF, LIP ####[address] [address] UAon 07-12-2023 Color (U) Yellow Normal [facility] ([place] Comment on above: Performed By: #### U A #### [address] [address] Glucose (U) [Mass/Vol] Negative Normal Negative [facility] ([place]) Comment on above: Performed By: #### U A #### [address] [address] Ketones Ql (U) Negative Normal Negative [facility] ([place] Comment on above: Performed By: #### U A #### [address] [address] UA Appear Clear Normal Clear [facility] ([place] Comment on above: Performed By: #### U A #### [address] [address] UA Blood Negative Normal Negative [facility] ([place] Comment on above: Performed By: #### U A #### [address] [address] UA Leuk Est Negative Normal Negative [facility] ([place] Comment on above: Performed By: #### U A #### [address] [address] UA Nitrite Negative Normal Negative [facility] ([place] Comment on above: Performed By: #### U A #### [address] [address] UA pH 6.0 Normal 5.0 - 8.0 [facility] ([place]) Comment on above: Performed By: #### U A #### [place] [address] UA Protein Negative Normal Negative [facility] ([place] Comment on above: Performed By: #### U A #### [place] [address] UA Spec Grav 1.020 Normal 1.015-1.025 [facility] ([place] Comment on above: Performed By: #### U A #### [place] [address] UA Specimen Type Void Normal [facility] ([place] Comment on above: Performed By: #### U A #### [place] [address] UA Urobilinogen 0.2 E.U./dL Normal 0.2-1.0 [facility] ([place] Comment on above: Performed By: #### U A #### [place] [address] Urobilinogen (U) [Mass/Vol] Negative Normal Negative [facility] ([place] Comment on above: Performed By: #### U A #### [place] [address] ANES PRE-OPon 06-29-2023 ANES PRE-OP HNO ID: [id number] Author: NAN MILNER APRN.PASSENGER BARGE MASTER Service: ? Author Type: Nurse Cigarette Roller Type: Anesthesia Preprocedure Evaluation Filed: 06/29/2023 12:54 Note Text: ANESTHESIOLOGY DAY OF SURGERY NOTE : 1965 Procedure Information Date/Time: 07/14/23 0900 Scheduled providers: Leta Arechiga MD Procedures: COLONOSCOPY SCREENING EGD DIAGNOSTIC Location: Ambulatory Surgery Estimated body mass index is 25.84 kg/m? as calculated from the following: Height as of 06/15/23: 170.2 cm (5' 7"). Weight as of 06/15/23: 74.8 kg (165 lb). Most recent hematocrit and potassium results: Hematocrit 51.7 06/12/2023 Potassium 4.0 06/12/2023 Relevant Problems ANESTHESIA (+) MICA (obstructive sleep apnea) CARDIO (+) Internal hemorrhoids (+) Primary hypertension -RENAL (+) Hepatic steatosis (+) Multiple renal cysts NEURO-PSYCH (+) History of colonic polyps PULMONARY (+) MICA (obstructive sleep apnea) I - PHYSICAL EVALUATION AIRWAY Patient intubated: No. II - ANESTHESIA PLAN ASA Score: 2 Anesthetic Plan: MAC The patient is a current smoker. Beta Nora Monitoring Plan Post Procedure Analgesic Plan No vitals data found for the desired time range. Outpatient Medications as of 07/14/2023 Medication Sig - CPAP/BIPAP/OTHER Type .CPAPSettings into a note to see current settings/supplies/DME information. - atorvastatin (LIPITOR) 20 mg tablet Take 1 tablet by mouth once daily. - Cholecalciferol, Vitamin D3, 50 mcg (2,000 unit) cap Take 1 capsule by mouth once daily. - amLODIPine (NORVASC) 5 mg tablet Take 1 tablet by mouth once daily. - varenicline (CHANTIX STARTING MONTH BOX) 0.5 mg (11)- 1 mg (42) tablet Take 0.5 mg by mouth once daily on Days 1 through 3, THEN 0.5 mg twice daily on Days 4 through 7, THEN 1 mg twice daily on Day 8 and thereafter - [START ON 07/06/2023] varenicline (CHANTIX CONTINUING MONTH BOX) 1 mg tablet Take 1 tablet by mouth two times a day with meals. Patient should start on July 06, 2023. No current facility-administered medications on file as of 07/14/2023. I have interviewed and examined the patient. I have reviewed the medical record and/or the pre-anesthesia evaluation, pertinent labs, and test results. This contains updated information obtained within 48 hours of Surgery/Procedure. SIGNATURE: Nan Milner APRN.PASSENGER BARGE MASTER PATIENT NAME: Emma Vasquez DATE: June 29, 2023 TIME: 12:52 PM CSN: [id number] Normal [facility] CNCOon 06-28-2023 CNCO Letter Text Normal [facility] CT THORAX SCREENING W/O CONT Espinoza 06-23-2023 CT THORAX SCREENING W/O CONTRAST ORIGINAL EXAMINATION: LOW DOSE SCREENING CT OF THE CHEST WITHOUT CONTRAST06/21/2023 6:25 pm TECHNIQUE: Low dose lung cancer screening CT of the chest was performed without the administration of intravenous contrast. Multiplanar reformatted images are provided for review. Automated exposure control, iterative reconstruction, and/or weight based adjustment of the mA/kV was utilized to reduce the radiation dose to as low as reasonably achievable. COMPARISON: None. HISTORY: ORDERING SYSTEM PROVIDED HISTORY: Reason for Exam: lung cancer screening. 20 pack year hx 25 pack year hx. current smoker. no chest complaints. FINDINGS: The heart is normal in size. No pericardial effusion. Minimal coronary artery atherosclerotic calcification. The great vessels appear normal in caliber. Left vertebral artery originates from the aortic arch, normal variant. No lymphadenopathy is visible on this unenhanced exam. Trachea and mainstem bronchi are patent. No suspicious endotracheal or endobronchial nodule is demonstrated. No pulmonary consolidation is identified. Scattered areas of pleural and parenchymal scarring. Minimal volume loss within the lingula. 2 mm right upper lobe pulmonary nodule (image 118, series 3). 2 mm subpleural nodule, left upper lobe (image 151, series 3). No pneumothorax or pleural effusion. No acute osseous abnormality. No aggressive osseous lesions. Hypodense lesion within the T3 vertebral body is consistent with a vertebral body hemangioma. Mostly mild multifocal degenerative changes. No suspicious findings seen in the visualized portion of the abdomen. The abdomen is not evaluated in detail. IMPRESSION: Small lung nodules. For patients with appropriate lung cancer risk, annual CT screening is recommended. Coronary artery atherosclerosis. Information below is for Lung nodule tracking purposes: Nodule: S1 Other Findings: P-CAC Change: Na Recall : 1yr scr Recall Type: LDCT LungRads: 2s RECOMMENDATIONS: Lung-RADS: Category 2, Benign appearance or behavior. Management: Continue annual lung screening with LDCT in 12 months. I have personally reviewed the images of this examination and agree with the resident's findings and interpretation. Interpreted by: Ric Estes MD Preliminary Report By: Aren Staley Electronically signed By Ric Estes MD Dictated Date: 06/23/2023 11:07:48 AM Prelim Date: 06/23/2023 2:07:44 PM Sign Date: 06/23/2023 2:07:44 PM Ordering Provider: JOSEPH Pablo [facility] ([place]) [facility] 06-18-2023 CNPN Telephone (INTMWS) -- EMMA VASQUEZ ([id number]) 1965 M Date Time Provider Department 06/18/23 BRIAN GIBSON INTSofiyaWS During your visit today, we recorded the following information about you: Brian Gibson APRN.CNP 06/18/2023 1:16 PM Signed Please let patient know that insurance is requiring a titration study to be done instead of using the autopap setting on a CPAP. This means he has to have a secondary sleep study done to determine CPAP settings. Order is placed. Mary Beth Arteaga LPN 06/18/2023 2:42 PM Signed LEFT MESSAGE FOR PATIENT TO CALL OFFICE. Mary Beth Arteaga LPN 06/21/2023 9:40 AM Signed Patient aware and he is working on getting this scheduled. Will contact office if anything is needed, Allergies As of Date: 06/18/2023 Noted Allergy Reaction PENICILLINS 09/05/2014 16 - Unknown 4 - Hives Date Reviewed: 06/15/2023 Reviewed by: Brian Gibson APRN.CNP - Fully Assessed Reason for Visit: Orders [681] Primary Visit Diagnosis:MICA (obstructive sleep apnea) [G47.33] Order(s):PAP TITRATION PSG (CPAP, BIPAP, ASV) [3649131] Order #: [id number] FUTURE Prescriptions as of 06/21/2023 - CPAP/BIPAP/OTHER Type .CPAPSettings into a note to see current settings/supplies/DME information. - atorvastatin (LIPITOR) 20 mg tablet Take 1 tablet by mouth once daily. - Cholecalciferol, Vitamin D3, 50 mcg (2,000 unit) cap Take 1 capsule by mouth once daily. - amLODIPine (NORVASC) 5 mg tablet Take 1 tablet by mouth once daily. - varenicline (CHANTIX STARTING MONTH BOX) 0.5 mg (11)- 1 mg (42) tablet Take 0.5 mg by mouth once daily on Days 1 through 3, THEN 0.5 mg twice daily on Days 4 through 7, THEN 1 mg twice daily on Day 8 and thereafter - varenicline (CHANTIX CONTINUING MONTH BOX) 1 mg tablet Take 1 tablet by mouth two times a day with meals. Patient should start on July 06, 2023. Problem List As Of Date 06/18/2023 Noted Resolved Tobacco use [Z72.0] 05/12/2017 History of colonic polyps [Z86.010] 06/07/2017 Primary hypertension [I10] 03/03/2022 Memory difficulties [R41.3] 03/03/2022 Internal hemorrhoids [K64.8] 03/03/2022 Moderate episode of recurrent major depressive *04/01/2022 Multiple renal cysts [Q61.02] 04/01/2022 Ventral hernia without obstruction or gangrene *04/01/2022 05/22/2022 Hypercholesterolemia [E78.00] 05/22/2022 Hepatic steatosis [K76.0] 06/15/2023 Gallbladder polyp [K82.4] 06/15/2023 Vitamin D deficiency [E55.9] 06/15/2023 MICA (obstructive sleep apnea) [G47.33] 06/15/2023 Encounter Status:Closed by MARY BETH ARTEAGA on 06/21/23 [facility] 06-15-2023 CNOV Office Visit (INTMWS ) -- EMMA VASQUEZ ([id number]) 1965 M Date Time Provider Department 06/15/23 8:00 AM BRIAN GIBSON During your visit today, we recorded the following information about you: Pulse Blood pressure Weight Height 92/minute 144/108 74.8 kg 1.702 m Brian Gibson APRN.CNP 06/15/2023 8:44 AM Signed SUBJECTIVE Emma Vasquez is a 57 year old male here today for a check up on his medical problems. Chief Complaint Patient presents with: Physical HPI Emma Vasquez is a 57 year old male. He is an established patient but has not been seen for routine follow up for some time. He was scheduled for a well exam today but has several concerns so we will post-pone that. Prior to his visit today he had labs done. Vitamin d is low, cholesterol better but still elevated. Concerns of feeling tired a lot, groggy and not focused. Still with some memory issues, getting worse with work, recall not great. 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 Seen with neurology with Claudine petersen. Work up included MRI of the brain and MRI was normal. Has not followed through with seeing ENT, getting hearing testing done, seeing sleep medicine or neuro psych testing. He did have a HSAT that did show sleep apnea but did not get set up for pap therapy. Smoking about a pack per day. Scheduled for July for colonoscopy. Some constipation issues. Some low abdominal pain off and on. Urine dip today normal. Prior CT of ABD/Pelvis about a year ago with hepatic steatosis and peripelvic left renal cysts but no other findings. Ultrasound of the bladder showed incidental gallbladder polyps, mild generalized bladder thickening. His medications were reviewed today and his list is now up to date. Medications Current Outpatient Medications Medication Sig CPAP/BIPAP/OTHER Type .CPAPSettings into a note to see current settings/supplies/DME information. atorvastatin (LIPITOR) 20 mg tablet Take 1 tablet by mouth once daily. Cholecalciferol, Vitamin D3, 50 mcg (2,000 unit) cap Take 1 capsule by mouth once daily. amLODIPine (NORVASC) 5 mg tablet Take 1 tablet by mouth once daily. varenicline (CHANTIX STARTING MONTH BOX) 0.5 mg (11)- 1 mg (42) tablet Take 0.5 mg by mouth once daily on Days 1 through 3, THEN 0.5 mg twice daily on Days 4 through 7, THEN 1 mg twice daily on Day 8 and thereafter [START ON 07/06/2023] varenicline (CHANTIX CONTINUING MONTH BOX) 1 mg tablet Take 1 tablet by mouth two times a day with meals. Patient should start on July 06, 2023. No current facility-administered medications for this visit. ALLERGIES Allergen Reactions Penicillins Unknown, Hives ACTIVE PROBLEM LIST Hypercholesterolemia - 05/22/2022 Moderate Episode of Recurrent Major Depressive Disorder (Hcc) - 04/01/2022 Multiple Renal Cysts - 04/01/2022 Primary Hypertension - 03/03/2022 Memory Difficulties - 03/03/2022 Internal Hemorrhoids - 03/03/2022 History of Colonic Polyps - 06/07/2017 Comment: 06/07/17 25 mm sessile polyp sigmoid colon. 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 Rec: 6mo follow up Tobacco Use - 05/12/2017 Social History Tobacco Use Smoking status: Every Day Packs/day: 1.00 Years: 17.00 Additional pack years: 0.00 Total pack years: 17.00 Types: Cigarettes Smokeless tobacco: Former Vaping Use Vaping Use: Never used Substance Use Topics Alcohol use: Yes Alcohol/week: 21.0 standard drinks of alcohol Types: 21 Cans of Beer (12oz) per week Drug use: Yes Comment: past use of crack and marijuana Review of Systems Respiratory: Negative. Cardiovascular: Negative. Gastrointestinal: Positive for abdominal pain and constipation. Negative for abdominal distention, diarrhea, nausea and vomiting. OBJECTIVE BP 144/108 Pulse 92 Ht 5' 7" (1.70m) Wt 165 lb (74.8kg) SpO2 99% BMI 25.84 kg/(m2). Physical Exam Vitals and nursing note reviewed. Constitutional: General: He is awake. He is not in acute distress. Appearance: Normal appearance. He is well-developed and well-groomed. He is not ill-appearing, toxic-appearing or diaphoretic. HENT: Head: Normocephalic. Right Ear: External ear normal. Left Ear: External ear normal. Nose: Nose normal. Eyes: General: Vision grossly intact. Conjunctiva/sclera: Conjunctivae normal. Pupils: Pupils are equal, round, and reactive to light. Neck: Vascular: No JVD. Trachea: Trachea normal. Cardiovascular: Rate and Rhythm: Normal rate and regular rhythm. Pulses: Normal pulses. Heart sounds: Normal heart sounds. No murmur heard. Pulmonary: Effort: Pulmonary effort is normal. No accessory muscle usage, prolonged expiration or respiratory distress. Breath sounds: Normal breath sounds. Musculoskeletal: Cervical back: Neck supple. Skin: General: Skin is warm and dry. Capillary Refill: Capillary (more content not included)... Normal [facility] UA DIP, URINE (POC)on 2023 BILIRUBIN UA (POCT) Negative Negative [facility] CLARITY UA (POCT) Clear [facility] COLOR UA (POCT) Yellow [facility] GLUCOSE UA (POCT) Negative Negative mg/dL [facility] Hemoglobin Ql (U) Negative Negative [facility] KETONE UA (POCT) Negative Negative mg/dL [facility] LEUKOCYTES UA (POCT) Negative Negative [facility] NITRITE UA (POCT) Negative Negative [facility] PH UA (POCT) 6.0 4.5 - 8.0 [facility] Protein Ql (U) Negative Negative mg/dL [facility] SPECIFIC GRAVITY UA (POCT) 1.025 1.005 - 1.030 [facility] UROBILINOGEN UA (POCT) 0.2 Normal E.U./dL [facility] Location:[address], [address] [place] [address] POINT OF CARE [facility] 25(OH)D3 SerPl-ncon 2023 25-hydroxyvitamin D3 [Mass/Vol] 21.5 ng/mL Low 31.0-80.0 [facility] Comment on above: Order Comment: Speci men Type: BLOOD SPECIMENOrdering Facility: [facility] Address: [address] [place] [address] Result Comment: Clas sification of 25 [place] Vitamin D status: Deficiency/Insufficiency: < or = 30 ng/ml. Sufficiency/Optimal Levels: 31-80 ng/mL Toxicity: > 100 ng/mL. Test performed by chemiluminescent immunoassay. Performed By: #### 1 989-3 ####[facility] LABCLIA [id number] [address] [id number] [address] [place] CBC W Auto Differential pane l (Bld)on 06-12-2023 Basophils (Bld) [#/Vol] 0.08 10*3/uL Normal <0.11 [facility] Comment on above: Order Comment: Speci men Type: BLOOD SPECIMENOrdering Facility: [facility] Address: [address] [place] [address] Performed By: #### 5 7021-8 ####[facility] LABCLIA [id number] [place] [address] [place] Basophils/100 WBC (Bld) 0.8 % Normal [facility] Comment on above: Order Comment: Speci men Type: BLOOD SPECIMENOrdering Facility: [facility] Address: [address] [place] [address] Performed By: #### 5 7021-8 ####[facility] LABCLIA [id number] [place] [address] [place] Differential cell count method Nom (Bld) Auto Normal [facility] Comment on above: Order Comment: Speci men Type: BLOOD SPECIMENOrdering Facility: [facility] Address: [address] [place] [address] Performed By: #### 5 7021-8 ####[facility] LABCLIA [id number] [place] [address] [place] Eosinophils (Bld) [#/Vol] 0.22 10*3/uL Normal <0.46 [facility] Comment on above: Order Comment: Speci men Type: BLOOD SPECIMENOrdering Facility: [facility] Address: [address] [place] [address] Performed By: #### 5 7021-8 ####[facility] LABCLIA [id number] [place] [address] [place] Eosinophils/100 WBC (Bld) 2.3 % Normal [facility] Comment on above: Order Comment: Speci men Type: BLOOD SPECIMENOrdering Facility: [facility] Address: [address] [place] [address] Performed By: #### 5 7021-8 ####[facility] LABCLIA [id number] [place] [address] [place] Erythrocyte distribution width (RBC) [Ratio] 13.8 % Normal 11.5-15.0 [facility] Comment on above: Order Comment: Speci men Type: BLOOD SPECIMENOrdering Facility: [facility] Address: [address] [place] [address] Performed By: #### 5 7021-8 ####[facility] LABCLIA [id number] [place] [address] [place] Hematocrit (Bld) [Volume fraction] 51.7 % High 39.0-51.0 [facility] Comment on above: Order Comment: Speci men Type: BLOOD SPECIMENOrdering Facility: [facility] Address: [address] [place] [address] Performed By: #### 5 7021-8 ####[facility] LABIA [id number] [place] [address] [place] Hemoglobin (Bld) [Mass/Vol] 17.0 g/dL Normal 13.0-17.0 [facility] Comment on above: Order Comment: Speci men Type: BLOOD SPECIMENOrdering Facility: [facility] Address: [address] [place] [address] Performed By: #### 5 7021-8 ####[facility] LABCLIA [id number] [place] [address] [place] Immature granulocytes (Bld) [#/Vol] 0.08 10*3/uL Normal <0.10 [facility] Comment on above: Order Comment: Speci men Type: BLOOD SPECIMENOrdering Facility: [facility] Address: [address] [place] [address] Performed By: #### 5 7021-8 ####[facility] LABCLIA [id number] [place] [address] [place] Immature granulocytes/100 WBC (Bld) 0.8 % Normal [facility] Comment on above: Order Comment: Speci men Type: BLOOD SPECIMENOrdering Facility: [facility] Address: [address] [place] [address] Performed By: #### 5 7021-8 ####[facility] LABCLIA [id number] [place] [address] [place] Lymphocytes (Bld) [#/Vol] 3.88 10*3/uL Normal 1.00-4.00 [facility] Comment on above: Order Comment: Speci men Type: BLOOD SPECIMENOrdering Facility: [facility] Address: [address] [place] [address] Performed By: #### 5 7021-8 ####[facility] LABIA [id number] [place] [address] [place] Lymphocytes/100 WBC (Bld) 40.0 % Normal [facility] Comment on above: Order Comment: Speci men Type: BLOOD SPECIMENOrdering Facility: [facility] Address: [address] [place] [address] Performed By: #### 5 7021-8 ####[facility] LABIA [id number] [place] [address] [place] MCH (RBC) [Entitic mass] 30.3 pg Normal 26.0-34.0 [facility] Comment on above: Order Comment: Speci men Type: BLOOD SPECIMENOrdering Facility: [facility] Address: [address] [place] [address] Performed By: #### 5 7021-8 ####[facility] LABCLIA [id number] [place] [address] [place] MCHC (RBC) [Mass/Vol] 32.9 g/dL Normal 30.5-36.0 [facility] Comment on above: Order Comment: Speci men Type: BLOOD SPECIMENOrdering Facility: [facility] Address: [address] [place] [address] Performed By: #### 5 7021-8 ####[facility] LABCLIA [id number] [place] [address] [place] MCV (RBC) [Entitic vol] 92.2 fL Normal 80.0-100.0 [facility] Comment on above: Order Comment: Speci men Type: BLOOD SPECIMENOrdering Facility: [facility] Address: [address] [place] [address] Performed By: #### 5 7021-8 ####[facility] LABIA [id number] [place] [address] [place] Monocytes (Bld) [#/Vol] 0.83 10*3/uL Normal <0.87 [facility] Comment on above: Order Comment: Speci men Type: BLOOD SPECIMENOrdering Facility: [facility] Address: [address] [address] Performed By: #### 5 7021-8 ####[facility] LABIA [id number] [place] [address] [place] Monocytes/100 WBC (Bld) 8.5 % Normal [facility] Comment on above: Order Comment: Speci men Type: BLOOD SPECIMENOrdering Facility: [facility] Address: [address] [address] Performed By: #### 5 7021-8 ####[facility] LABIA [id number] [place] [address] [place] Neutrophils (Bld) [#/Vol] 4.62 10*3/uL Normal 1.45-7.50 [facility] Comment on above: Order Comment: Speci men Type: BLOOD SPECIMENOrdering Facility: [facility] Address: [address] [address] Performed By: #### 5 7021-8 ####[facility] LABCLIA [id number] [place] [address] [place] Neutrophils/100 WBC (Bld) 47.6 % Normal [facility] Comment on above: Order Comment: Speci men Type: BLOOD SPECIMENOrdering Facility: [facility] Address: [address] [place] [address] Performed By: #### 5 7021-8 ####[facility] LABCLIA [id number] [place] [address] [place] Nucleated RBC (Bld) [#/Vol] 10*3/uL Normal <0.01 [facility] Comment on above: Order Comment: Speci men Type: BLOOD SPECIMENOrdering Facility: [facility] Address: [address] [place] [address] Performed By: #### 5 7021-8 ####[facility] LABCLIA [id number] [place] [address] [place] Nucleated RBC/100 WBC (Bld) [Ratio] 0.0 /100 WBC Normal [facility] Comment on above: Order Comment: Speci men Type: BLOOD SPECIMENOrdering Facility: [facility] Address: [address] [place] [address] Performed By: #### 5 7021-8 ####[facility] LABCLIA [id number] [place] [address] [place] Platelet mean volume (Bld) [Entitic vol] 10.1 fL Normal 9.0-12.7 [facility] Comment on above: Order Comment: Speci men Type: BLOOD SPECIMENOrdering Facility: [facility] Address: [address] [place] [address] Performed By: #### 5 7021-8 ####[facility] LABCLIA [id number] [place] [address] [place] Platelets (Bld) [#/Vol] 301 10*3/uL Normal 150-400 [facility] Comment on above: Order Comment: Speci men Type: BLOOD SPECIMENOrdering Facility: [facility] Address: [address] [place] [address] Performed By: #### 5 7021-8 ####[facility] LABCLIA [id number] [place] [address] [place] RBC (Bld) [#/Vol] 5.61 10*6/uL Normal 4.20-6.00 [facility] Comment on above: Order Comment: Speci men Type: BLOOD SPECIMENOrdering Facility: [facility] Address: [address] [place] [address] Performed By: #### 5 7021-8 ####[facility] LABCLIA [id number] [place] [address] [place] WBC (Bld) [#/Vol] 9.71 10*3/uL Normal 3.70-11.00 [facility] Comment on above: Order Comment: Speci men Type: BLOOD SPECIMENOrdering Facility: [facility] Address: [address] [place] [address] Performed By: #### 5 7021-8 ####[facility] LABCLIA [id number] [place] [address] [place] Comprehensive metabolic 2000 panelon 06-12-2023 Albumin [Mass/Vol] 4.3 g/dL Normal 3.9-4.9 [facility] Comment on above: Order Comment: Speci men Type: BLOOD SPECIMENOrdering Facility: [facility] Address: [address] [place] [address] Performed By: #### 2 4323-8, 59721-7, 69393-1 ####[facility] LABCLIA [id number] [place] [address] [place] ALP [Catalytic activity/Vol] 85 U/L Normal 38-113 [facility] Comment on above: Order Comment: Speci men Type: BLOOD SPECIMENOrdering Facility: [facility] Address: [address] [place] [address] Performed By: #### 2 4323-8, 11541-3, ####[facility] LABCLIA [id number] [address] [address] [place] ALT [Catalytic activity/Vol] 18 U/L Normal 10-54 [facility] Comment on above: Order Comment: Speci men Type: BLOOD SPECIMENOrdering Facility: [facility] Address: [address] [place] [address] Performed By: #### 2 4323-8, 49952-9, ####[facility] LABCLIA [id number] [place] [address] [place] Anion gap [Moles/Vol] 12 mmol/L Normal 9-18 [facility] Comment on above: Order Comment: Speci men Type: BLOOD SPECIMENOrdering Facility: [facility] Address: [address] [place] [address] Performed By: #### 2 4323-8, 61033-3, ####[facility] LABIA [id number] [place] [address] [place] AST [Catalytic activity/Vol] 19 U/L Normal 14-40 [facility] Comment on above: Order Comment: Speci men Type: BLOOD SPECIMENOrdering Facility: [facility] Address: [address] [place] [address] Performed By: #### 2 4323-8, 23977-3, ####[facility] LABCLIA [id number] [place] [id number] [place] Bilirubin [Mass/Vol] 0.3 mg/dL Normal 0.2-1.3 [facility] Comment on above: Order Comment: Speci men Type: BLOOD SPECIMENOrdering Facility: [facility] Address: [address] [place], [place] [address] Performed By: #### 2 4323-8, 15860-8, ####[facility] LABCLIA [id number] [address] [address] [place] Calcium [Mass/Vol] 9.2 mg/dL Normal 8.5-10.2 [facility] Comment on above: Order Comment: Speci men Type: BLOOD SPECIMENOrdering Facility: [facility] Address: [address] [place] [address] Performed By: #### 2 4323-8, 73261-6, ####[facility] LABCLIA [id number] [address] [address] [place] Chloride [Moles/Vol] 103 mmol/L Normal 97-105 [facility] Comment on above: Order Comment: Speci men Type: BLOOD SPECIMENOrdering Facility: [facility] Address: [address] [place] [address] Performed By: #### 2 4323-8, , ####[facility] LABCLIA [id number] [place] [id number] [place] CO2 [Moles/Vol] 23 mmol/L Normal 22-30 [facility] Comment on above: Order Comment: Speci men Type: BLOOD SPECIMENOrdering Facility: [facility] Address: [address] [place] [address] Performed By: #### 2 4323-8, 63812-8, ####[facility] LABCLIA [id number] [address] [address] [place] Creatinine [Mass/Vol] 0.83 mg/dL Normal 0.73-1.22 [facility] Comment on above: Order Comment: Speci men Type: BLOOD SPECIMENOrdering Facility: [facility] Address: [address] [place] [address] Performed By: #### 2 4323-8, 56033-9 ####[facility] LABCLIA [id number] [place] [address] [place] Creatinine and Glomerular filtration rate.predicted panel (S/P/Bld) 102 mL/min/1.73m??? Normal >=60 [facility] Comment on above: Order Comment: Tristin shea Type: BLOOD SPECIMENOrdering Facility: [facility] Address: [address] [place] [address] Result Comment: Chasity mated Glomerular Filtration Rate (eGFR) is calculated using the 2020 CKD-EPI creatinine equation. This equation utilizes serum creatinine, sex, and age as parameters. The creatinine assay has traceable calibration to isotope dilution-mass spectrometry. Refer to KDIGO guidelines for clinical interpretation. In patients with unstable renal function, e.g. those with acute kidney injury, the eGFR may not accurately reflect actual GFR. Performed By: #### 2 4323-8, 74447-1, ####[facility] LABCLIA [id number] [place] [address] [place] Glucose [Mass/Vol] 113 mg/dL High 74-99 [facility] Comment on above: Order Comment: Tristin shea Type: BLOOD SPECIMENOrdering Facility: [facility] Address: [address] [place] [address] Result Comment: The [place] Diabetes Association (ADA) provides guidance for cutoff values for fasting glucose and random glucose. The ADA defines fasting as no caloric intake for at least 8 hours. Fasting plasma glucose results between 100 to 125 mg/dL indicate increased risk for diabetes (prediabetes). Fasting plasma glucose results greater than or equal to 126 mg/dL meet the criteria for diagnosis of diabetes. In the absence of unequivocal hyperglycemia, results should be confirmed by repeat testing. In a patient with classic symptoms of hyperglycemia or hyperglycemic crisis, random plasma glucose results greater than or equal to 200 mg/dL meet the criteria for diagnosis of diabetes. Reference: Standards of Medical Care in Diabetes 2016, [place] Diabetes Association. Diabetes Care. 2016.39(Suppl 1). Performed By: #### 2 4323-8, 76965-2, ####[facility] LABCLIA [id number] [address] [address] [place] Potassium [Moles/Vol] 4.0 mmol/L Normal 3.7-5.1 [facility] Comment on above: Order Comment: Speci men Type: BLOOD SPECIMENOrdering Facility: [facility] Address: [address] [place], [place] [address] Performed By: #### 2 4323-8, 60962-8, ####[facility] LABCLIA [id number] [address] [address] [place] Protein [Mass/Vol] 6.8 g/dL Normal 6.3-8.0 [facility] Comment on above: Order Comment: Speci men Type: BLOOD SPECIMENOrdering Facility: [facility] Address: [address] [place] [address] Performed By: #### 2 4323-8, 83539-0, ####[facility] LABIA [id number] [address] [address] [place] Sodium [Moles/Vol] 138 mmol/L Normal 136-144 [facility] Comment on above: Order Comment: Speci men Type: BLOOD SPECIMENOrdering Facility: [facility] Address: [address] [place] [address] Performed By: #### 2 4323-8, 02153-9, ####[facility] LABCLIA [id number] [address] [address] [place] Urea nitrogen [Mass/Vol] 13 mg/dL Normal 9-24 [facility] Comment on above: Order Comment: Speci men Type: BLOOD SPECIMENOrdering Facility: [facility] Address: [address] [place] [address] Performed By: #### 2 4323-8, 38748-5, ####[facility] LABCLIA [id number] [address] [address] [place] Lipid 1996 panelon 4 Cholesterol [Mass/Vol] 244 mg/dL High <200 [facility] Comment on above: Order Comment: Speci men Type: BLOOD SPECIMENOrdering Facility: [facility] Address: [address] [place] [address] Result Comment: <200 mg/dL, Desirable 200-239 mg/dL, Borderline high >239 mg/dL, High Performed By: #### 2 4323-8, 67827-7, ####[facility] LABCLIA [id number] [place] [address] [place] Cholesterol in HDL [Mass/Vol] 65 mg/dL Normal >39 [facility] Comment on above: Order Comment: Tevini men Type: BLOOD SPECIMENOrdering Facility: [facility] Address: [address] [place] [address] Result Comment: 40-5 9 mg/dL, Acceptable >59 mg/dL, High: Negative risk factor for coronary heart disease <40 mg/dL, Low: Positive risk factor for coronary heart disease Performed By: #### 2 4323-8, 58603-0, ####[facility] LABCLIA [id number] [place] [address] [place] Cholesterol in LDL [Mass/Vol] 162 mg/dL High <100 [facility] Comment on above: Order Comment: Speci men Type: BLOOD SPECIMENOrdering Facility: [facility] Address: [address] [address] Result Comment: <100 mg/dL, Optimal 100-129 mg/dL, Near optimal/above optimal 130-159 mg/dL, Borderline high 160-189 mg/dL, High >189 mg/dL, Very high Secondary prevention optimal LDL Cholesterol levels are recommended to be < 70 mg/dL Performed By: #### 2 4323-8, 79007-3, ####[facility] LABCLIA [id number] [place] [id number] [place] Cholesterol in LDL/Cholesterol in HDL [Mass ratio] 2.49 {ratio} Normal <2.54 [facility] Comment on above: Order Comment: Tristin monse Type: BLOOD SPECIMENOrdering Facility: [facility] Address: [address] [place] [address] Result Comment: Pedro rashid: 1. National Cholesterol Education Program ATP III Guideline At-A-Glance Quick Desk Reference: National Heart, Lung, and Blood [place]. National Institutes of Health. 2001: NIH Publication No. 01-3305. 2. An International Atherosclerosis Society position paper: global recommendations for the management of dyslipidemia: executive summary, Atherosclerosis. 2014: 232(2):410-413. Performed By: #### 2 4323-8, , ####[facility] LABCLIA [id number] [address] [place] Cholesterol in VLDL [Mass/Vol] 17 mg/dL Normal <30 [facility] Comment on above: Order Comment: Tristin monse Type: BLOOD SPECIMENOrdering Facility: [facility] Address: [address] [address] Performed By: #### 2 4323-8, , ####[facility] LABCLIA [id number] [address] [place] Cholesterol non HDL [Mass/Vol] 179 mg/dL High <130 [facility] Comment on above: Order Comment: Tevinamy shea Type: BLOOD SPECIMENOrdering Facility: [facility] Address: [address] [place] [address] Result Comment: <130 mg/dL, Optimal 130-159 mg/dL, Near optimal/above optimal 160-189 mg/dL, Borderline high 190-219 mg/dL, High >219 mg/dL, Very high Secondary prevention optimal non HDL Cholesterol levels are recommended to be <100 mg/dL Performed By: #### 2 4323-8, 35449-9, ####[facility] LABCLIA [id number] [place] [id number] [facility] [place] Cholesterol.total/Ch olesterol in HDL [Mass ratio] 3.75 {ratio} Normal <5.10 [facility] Comment on above: Order Comment: Speci men Type: BLOOD SPECIMENOrdering Facility: [facility] Address: [address] [place] [address] Performed By: #### 2 4323-8, 58690-5, ####[facility] LABCLIA [id number] [place] [address] [place] FASTING TIME 12 hrs Normal [facility] Comment on above: Order Comment: Speci men Type: BLOOD SPECIMENOrdering Facility: [facility] Address: [address] [place] [address] Performed By: #### 2 4323-8, 29945-2, ####[facility] LABCLIA [id number] [place] [address] [place] Triglyceride [Mass/Vol] 83 mg/dL Normal <150 [facility] Comment on above: Order Comment: Speci men Type: BLOOD SPECIMENOrdering Facility: [facility] Address: [address] [place] [address] Result Comment: <150 mg/dL, Normal 150-199 mg/dL, Borderline high 200-499 mg/dL, High >499 mg/dL, Very high Performed By: #### 2 4323-8, 09954-7, ####[facility] LABCLIA [id number] [place] [id number] [place] Magnesium SerPl-mCncon 06-11 Magnesium [Mass/Vol] 2.4 mg/dL High 1.7-2.3 [facility] Comment on above: Order Comment: Speci men Type: BLOOD SPECIMENOrdering Facility: [facility] Address: [address] [place] [address] Performed By: #### 2 4323-8, 04819-1, ####[facility] LABCLIA [id number] [facility] [id number] [place] [address] [place] Mj 06-01-2023 CNPN Telephone (INTMWS) -- EMMA VASQUEZ ([id number]) 1965 M Date Time Provider Department 06/01/23 BRIAN GIBSON INTMWS During your visit today, we recorded the following information about you: Tori Torres 06/01/2023 8:50 AM Signed Patient is scheduled for wellness exam with PCP on 06/14/23. Please submit necessary lab orders. Patient is ok with being notified through [employer]. Allergies As of Date: 06/01/2023 Noted Allergy Reaction PENICILLINS 09/05/2014 16 - Unknown 4 - Hives Date Reviewed: 03/19/2023 Reviewed by: Shari Morfin, KAREN - Fully Assessed Reason for Visit: Lab Orders [1688] Primary Visit Diagnosis:Hypercholesterol emia [E78.00] Other Visit Diagnoses:Vitamin D deficiency [E55.9] Encounter for therapeutic drug monitoring [Z51.81] Order(s):COMPLETE BLOOD COUNT AND DIFFERENTIAL [SQCBCDIF] Order #: [id number] FUTURE COMPREHENSIVE METABOLIC PANEL [SQCMP] Order #: [id number] FUTURE LIPID PANEL BASIC [SQLIPB] Order #: [id number] FUTURE VITAMIN D 25 HYDROXY [SQVITD] Order #: [id number] FUTURE MAGNESIUM [SQMG1] Order #: [id number] FUTURE Prescriptions as of 06/01/2023 - fluticasone (FLONASE) 50 mcg/actuation nasal spray Use 2 Sprays in each nostril once daily. Rinse mouth after use. - atorvastatin (LIPITOR) 40 mg tablet Take 1 tablet by mouth once daily. - buPROPion XL (WELLBUTRIN XL) 300 mg 24 hr tablet Take 1 tablet by mouth once daily. - Cholecalciferol, Vitamin D3, 50 mcg (2,000 unit) cap Take 1 capsule by mouth once daily. - pantoprazole DR (PROTONIX) 40 mg tablet Take 1 tablet by mouth once daily. Problem List As Of Date 06/01/2023 Noted Resolved Tobacco use [Z72.0] 05/12/2017 History of colonic polyps [Z86.010] 06/07/2017 Primary hypertension [I10] 03/03/2022 Memory difficulties [R41.3] 03/03/2022 Internal hemorrhoids [K64.8] 03/03/2022 Moderate episode of recurrent major depressive *04/01/2022 Multiple renal cysts [Q61.02] 04/01/2022 Ventral hernia without obstruction or gangrene *04/01/2022 05/22/2022 Hypercholesterolemia [E78.00] 05/22/2022 Encounter Status:Closed by BRIAN GIBSON on 06/01/23 Normal [facility] .Auto Diffon 05-01-2023 Basophil, Absolute 0.2 10 3/mcL Normal 0.0-0.2 [facility] ([place]) Comment on above: Performed By: #### C ASUNCION QUINN BMP GFR, ANEU, TROPHS, ADIFF ####[address] [place], [place] [address] Basophils/100 WBC (Bld) 2.1 % Normal 0.0-2.5 [facility] ([place]) Comment on above: Performed By: #### C ASUNCION QUINN BMP GFR, ANEU, TROPHS, ADIFF ####[address] [place], [place] [address] Eosinophil, Absolute 0.3 10 3/mcL Normal 0.0-0.4 [facility] ([place]) Comment on above: Performed By: #### C ASUNCION QUINN BMP GFR, ANEU, TROPHS, ADIFF ####[address] [place], [place] [address] Eosinophils/100 WBC (Bld) 2.8 % Normal 0.0-7.0 [facility] ([place]) Comment on above: Performed By: #### C ASUNCION QUINN BMP, GFR, ANEU, TROPHS, ADIFF ####[address] [place], [place] [address] Lymphocyte, Absolute 3.8 10 3/mcL Normal 0.8-3.9 [facility] ([place]) Comment on above: Performed By: #### C ASUNCION QUINN, ABRAHAM, GFR, ANEU, TROPHS, ADIFF ####[id number] [place], [place] [address] Lymphocytes/100 WBC (Bld) 42.7 % Normal 10.0-50.0 [facility] ([place]) Comment on above: Performed By: #### C ASUNCION QUINN, ABRAHAM, GFR, ANEU, TROPHS, ADIFF ####[address] [place], [place] [address] Monocyte, Absolute 0.7 10 3/mcL Normal 0.2-1.0 [facility] ([place]) Comment on above: Performed By: #### C ASUNCION QUINN, ABRAHAM, GFR, ANEU, TROPHS, ADIFF ####[address] [place], [place] [address] Monocytes/100 WBC (Bld) 8.2 % Normal 1.7-13.0 [facility] ([place]) Comment on above: Performed By: #### C ASUNCION QUINN, ABRAHAM, GFR, ANEU, TROPHS, ADIFF ####[address] [place], [place] [address] Neutrophils/100 WBC (Bld) 44.2 % Normal 37.0-80.0 [facility] ([place]) Comment on above: Performed By: #### C ASUNCION QUINN, ABRAHAM, GFR, ANEU, TROPHS, ADIFF ####[id number] [place], [place] [address] .GFRon 05-01-2023 GFR 98 ml/min/1.73sqm Normal [facility] ([place]) Comment on above: Result Comment: GFR Population mean for , Non- Americans Ages 20-29 = 116 mL/min/1.73 sq.m. Ages 30-39 = 107 mL/min/1.73 sq.m. Ages 40-49 = 99 mL/min/1.73 sq.m. Ages 50-59 = 93 mL/min/1.73 sq.m. Ages 60-69 = 85 mL/min/1.73 sq.m. Ages 70+ = 75 mL/min/1.73 sq.m. Chronic Kidney Disease: Less than 60 mL/min/1.73 square meters End Stage Renal Disease: Less than 15 mL/min/1.73 square meters Performed By: #### C ASUNCION QUINN, BMP, GFR, ANEU, TROPHS, ADIFF #### [address] [place], [place] [address] GFR Non- 81 ml/min/1.73sqm Normal [facility] ([place]) Comment on above: Result Comment: GFR Population mean for , Non- Americans Ages 20-29 = 116 mL/min/1.73 sq.m. Ages 30-39 = 107 mL/min/1.73 sq.m. Ages 40-49 = 99 mL/min/1.73 sq.m. Ages 50-59 = 93 mL/min/1.73 sq.m. Ages 60-69 = 85 mL/min/1.73 sq.m. Ages 70+ = 75 mL/min/1.73 sq.m. Chronic Kidney Disease: Less than 60 mL/min/1.73 square meters End Stage Renal Disease: Less than 15 mL/min/1.73 square meters Performed By: #### C ASUNCION QUINN, ABRAHAM, GFR, ANEU, TROPHS, ADIFF #### [address] [address] .MDWon 05-01-2023 Monocyte Distribution Width Not performed Normal 0.00-20.00 [facility] ([place]) Comment on above: Result Comment: ASUNCION testing performed only on adult ER patients between the ages of 18-89 years. Performed By: #### C ASUNCION QUINN, BMP, GFR, ANEU, TROPHS, ADIFF ####[id number] [place], [place] [address] .NEUABSon 05-01-2023 Neutrophil, Absolute 3.9 10 3/mcL Normal 2.9-6.2 [facility] ([place]) Comment on above: Performed By: #### C ASUNCION QUINN, ABRAHAM, GFR, ANEU, TROPHS, ADIFF ####[address] [address] BMPon 05-01-2023 BUN/Creatinine Ratio 23 ratio Normal 7-27 [facility] ([place]) Comment on above: Performed By: #### C ASUNCION QUINN, ABRAHAM, GFR, ANEU, TROPHS, ADIFF #### [address] [address] Calcium [Mass/Vol] 8.7 mg/dL Normal 8.4-10.2 [facility] ([place]) Comment on above: Performed By: #### C ASUNCION QUINN, ABRAHAM, GFR, ANEU, TROPHS, ADIFF #### [address] [address] Chloride [Moles/Vol] 105 mmol/L Normal 98-107 [facility] ([place]) Comment on above: Performed By: #### C ASUNCION QUINN, ABRAHAM, GFR, ANEU, TROPHS, ADIFF #### [address] [address] CO2 [Moles/Vol] 27 mmol/L Normal 22-29 [facility] ([place] Comment on above: Performed By: #### C ASUNCION QUINN, ABRAHAM, GFR, ANEU, TROPHS, ADIFF #### [address] [address] Creatinine [Mass/Vol] 0.96 mg/dL Normal 0.70-1.30 [facility] ([place] Comment on above: Performed By: #### C ASUNCION QUINN, ABRAHAM, GFR, ANEU, TROPHS, ADIFF #### [address] [address] Electrolyte Balance 11.0 mEq/L Normal 4.0-15.0 [facility] ([place]) Comment on above: Performed By: #### C ASUNCION QUINN, ABRAHAM, GFR, ANEU, TROPHS, ADIFF #### [address] [address] Glucose [Mass/Vol] 157 mg/dL High 70-105 [facility] ([place]) Comment on above: Performed By: #### C ASUNCION QUINN BMP, GFR, ANEU, TROPHS, ADIFF #### [address] [address] Potassium [Moles/Vol] 4.0 mmol/L Normal 3.5-5.1 [facility] ([place]) Comment on above: Performed By: #### ASUNCION NICHOLS BMP, GFR, ANEU, TROPHS, ADIFF #### [address] [address] Sodium [Moles/Vol] 143 mmol/L Normal 136-145 [facility] ([place]) Comment on above: Performed By: #### C ASUNCION QUINN BMP, GFR, ANEU, TROPHS, ADIFF #### [address] [address] Urea nitrogen [Mass/Vol] 22 mg/dL High 7-18 [facility] ([place] Comment on above: Performed By: #### C ASUNCION QUINN BMP, GFR, ANEU, TROPHS, ADIFF #### [address] [address] CBCon 05-01-2023 Erythrocyte distribution width (RBC) [Ratio] 14.5 % Normal 11.5-14.5 [facility] ([place]) Comment on above: Performed By: #### C ASUNCION QUINN BMP, GFR, ANEU, TROPHS, ADIFF ####[id number] [place], [place] [address] Hematocrit (Bld) [Volume fraction] 49.4 % Normal 42.0-52.0 [facility] ([place]) Comment on above: Performed By: #### ASUNCION NICHOLS BMP, GFR, ANEU, TROPHS, ADIFF ####[address] [place], [place] [address] Hgb 17.2 G/dL Normal 14.0-18.0 [facility] ([place]) Comment on above: Performed By: #### C BC, MDW, BMP, GFR, ANEU, TROPHS, ADIFF ####[address] [place], [place] [address] MCH (RBC) [Entitic mass] 31.1 pg Normal 27.0-31.2 [facility] ([place]) Comment on above: Performed By: #### C ASUNCION QUINN, ABRAHAM, GFR, ANEU, TROPHS, ADIFF ####[address] [place], [place] [address] MCHC 34.9 G/dL Normal 31.8-35.4 [facility] ([place] Comment on above: Performed By: #### C ASUNCION QUINN, ABRAHAM, GFR, ANEU, TROPHS, ADIFF ####[address] [place], [place] [address] MCV (RBC) [Entitic vol] 89.2 fL Normal 80.0-94.0 [facility] ([place] Comment on above: Performed By: #### C ASUNCION QUINN, ABRAHAM, GFR, ANEU, TROPHS, ADIFF ####[address] [place], [place] [address] Platelet 291 10 3/mcL Normal 130-400 [facility] ([place]) Comment on above: Performed By: #### C ASUNCION QUINN, ABRAHAM, GFR, ANEU, TROPHS, ADIFF ####[address] [place], [place] [address] Platelet mean volume (Bld) [Entitic vol] 7.8 fL Normal 7.4-10.4 [facility] ([place]) Comment on above: Performed By: #### ASUNCION NICHOLS, ABRAHAM, GFR, ANEU, TROPHS, ADIFF ####[address] [place], [place] [address] RBC 5.54 10 6/mcL Normal 4.04-6.13 [facility] ([place]) Comment on above: Performed By: #### C ASUNCION QUINN, ABRAHAM, GFR, ANEU, TROPHS, ADIFF ####[address] [place], [place] [address] WBC 8.9 10 3/mcL Normal 4.6-10.8 [facility] ([place]) Comment on above: Performed By: #### C BC, MDW, BMP, GFR, ANEU, TROPHS, ADIFF ####[id number] [place], [place] [address] LABORATORYOrdered By: SYSTEM SYSTEM on 05-01-2023 Basophil, Absolute 0.2 103/mcL Normal 0.0 - 0.2 10^3/mcL AO Workflow SS Basophils/100 WBC (Bld) 2.1 % Normal 0.0 - 2.5 % AO Workflow SS Calcium [Mass/Vol] 8.7 mg/dL Normal 8.4 - 10. 2 mg/dL AO ADM SS Chloride [Moles/Vol] 105 mmol/L Normal 98 - 10 7 mmol/L AO ADM SS CO2 [Moles/Vol] 27 mmol/L Normal 22 - 29 mmol/L AO ADM SS Creatinine [Mass/Vol] 0.96 mg/dL Normal 0.70 - 1.30 mg/dL AO ADM SS Electrolyte Balance 11.0 mEq/L Normal 4.0 - 15 .0 mEq/L AO ADM SS Eosinophil, Absolute 0.3 103/mcL Normal 0.0 - 0 .4 10^3/mcL AO Workflow SS Eosinophils/100 WBC (Bld) 2.8 % Normal 0.0 - 7.0 % AO Workflow SS Erythrocyte distribution width (RBC) [Ratio] 14.5 % Normal 11.5 - 14.5 % AO Workflow SS GFR/1.73 sq M.predicted among blacks MDRD (S/P/Bld) [Vol rate/Area] 98 ml/min/1.73sqm Invalid Interpretation Code AO Chemistry S Comment on above: Interpretive Data: GFR Population mean for , Non- Americans Ages 20-29 = 116 mL/min/1.73 sq.m. Ages 30-39 = 107 mL/min/1.73 sq.m. Ages 40-49 = 99 mL/min/1.73 sq.m. Ages 50-59 = 93 mL/min/1.73 sq.m. Ages 60-69 = 85 mL/min/1.73 sq.m. Ages 70+ = 75 mL/min/1.73 sq.m. Chronic Kidney Disease: Less than 60 mL/min/1.73 square meters End Stage Renal Disease: Less than 15 mL/min/1.73 square meters GFR/1.73 sq M.predicted among non-blacks MDRD (S/P/Bld) [Vol rate/Area] 81 ml/min/1.73sqm Invalid Interpretation Code AO Chemistry S Comment on above: Interpretive Data: GFR Population mean for , Non- Americans Ages 20-29 = 116 mL/min/1.73 sq.m. Ages 30-39 = 107 mL/min/1.73 sq.m. Ages 40-49 = 99 mL/min/1.73 sq.m. Ages 50-59 = 93 mL/min/1.73 sq.m. Ages 60-69 = 85 mL/min/1.73 sq.m. Ages 70+ = 75 mL/min/1.73 sq.m. Chronic Kidney Disease: Less than 60 mL/min/1.73 square meters End Stage Renal Disease: Less than 15 mL/min/1.73 square meters Glucose [Mass/Vol] 157 mg/dL High 70 - 105 mg/dL AO ADM SS Hematocrit (Bld) [Volume fraction] 49.4 % Normal 42.0 - 52.0 % AO Workflow SS Hemoglobin (Bld) [Mass/Vol] 17.2 G/dL Normal 14.0 - 18.0 G/dL AO Workflow SS Lymphocyte, Absolute 3.8 103/mcL Normal 0.8 - 3 .9 10^3/mcL AO Workflow SS Lymphocytes/100 WBC (Bld) 42.7 % Normal 10.0 - 50.0 % AO Workflow SS MCH (RBC) [Entitic mass] 31.1 pg Normal 27.0 - 31.2 pg AO Workflow SS MCHC 34.9 G/dL Normal 31.8 - 35.4 G/dL AO Workflow SS MCV (RBC) [Entitic vol] 89.2 fL Normal 80.0 - 94.0 fL AO Workflow SS Monocyte distribution width Auto (Bld) [Entitic vol] Not Performed 1 *NA* (05/01/23 9:36 PM) Invalid Interpretation Code 0.00 - 20.00 AO Hematology S Comment on above: Result Comment: MDW testing performed only on adult ER patients between the ages of 18-89 years. Monocyte, Absolute 0.7 103/mcL Normal 0.2 - 1.0 10^3/mcL AO Workflow SS Monocytes/100 WBC (Bld) 8.2 % Normal 1.7 - 13.0 % AO Workflow SS Neutrophil, Absolute 3.9 103/mcL Normal 2.9 - 6 .2 10^3/mcL AO Workflow SS Neutrophils/100 WBC (Bld) 44.2 % Normal 37.0 - 80.0 % AO Workflow SS Platelet mean volume (Bld) [Entitic vol] 7.8 fL Normal 7.4 - 10.4 fL AO Workflow SS Platelets (Bld) [#/Vol] 291 103/mcL Normal 130 - 400 10^3/mcL AO Workflow SS Potassium [Moles/Vol] 4.0 mmol/L Normal 3.5 - 5.1 mmol/L AO ADM SS RBC (Bld) [#/Vol] 5.54 106/mcL Normal 4.04 - 6.1 3 10^6/mcL AO Workflow SS Sodium [Moles/Vol] 143 mmol/L Normal 136 - 145 mmol/L AO ADM SS Troponin I.cardiac DL <= 0.01 ng/mL [Mass/Vol] 7 ng/L Normal 0 - 76 ng/L AO ADM SS Comment on above: Interpretive Data: H igh Sensitive Troponin I Reference Ranges: Female: 0-51 ng/L Male: 0-76 ng/L Testing performed on [employer] using a homogeneous sandwich chemiluminescent immunoassay based on [employer] technology. Urea nitrogen [Mass/Vol] 22 mg/dL High 7 - 18 mg/dL AO ADM SS Urea nitrogen/Creatinine [Mass ratio] 23 ratio Normal 7 - 27 ratio AO ADM SS WBC (Bld) [#/Vol] 8.9 103/mcL Normal 4.6 - 10.8 10^3/mcL AO Workflow SS TROPHSon 05-01-2023 High Sensitivity Troponin I 7 ng/L Normal 0-76 [facility] ([place]) Comment on above: Result Comment: High Sensitive Troponin I Reference Ranges: Female: 0-51 ng/L Male: 0-76 ng/L Testing performed on [employer] using a homogeneous sandwich chemiluminescent immunoassay based on [employer] technology. Performed By: #### C [place], ASUNCION, BMP, GFR, ANEU, TROPHS, ADIFF #### [address] [address] XR CHEST 1 VIEWon 05-01-2023 XR CHEST 1 VIEW ORIGINAL EXAMINATION: ONE XRAY VIEW OF THE CHEST 05/01/2023 10:01 pm COMPARISON: None. HISTORY: ORDERING SYSTEM PROVIDED HISTORY: Reason for Exam: chest pain FINDINGS: The cardiomediastinal silhouette appears normal. There is no focal consolidation. There is no pulmonary edema. There is no evidence of pleural effusion. There is no evidence of pneumothorax. No fracture is identified. IMPRESSION: No acute abnormality is identified. Interpreted by: Carlos Bright Preliminary Report By: Carlos Bright Electronically signed By Carlos Bright Dictated Date: 05/01/2023 10:04:41 PM Prelim Date: 05/01/2023 10:05:04 PM Sign Date: 05/01/2023 10:05:04 PM Ordering Provider: AMERICO Pablo [facility] ([place]) Mj 04-20-2023 ALYSSAN Telephone (INTMWS) -- EMMA VASQUEZ ([id number]) 1965 M Date Time Provider Department 04/20/23 BRINA GIBSON During your visit today, we recorded the following information about you: Caitlyn Garcia 04/20/2023 11:50 AM Signed Patient is requesting [facility] [place] [address] His last one was mixed then not used do he will need a new prescription. Lucía King MA 04/20/2023 12:14 PM Signed Pt scheduled for colonscopy on 05/13. Attempted to contact patient to inform him to NOT mix prep until indicated on instructions. Unable to reach, no answer and invalid VM RUDDY Parra Rosa, APRN.ALYSSA 04/20/2023 2:40 PM Signed Script sent. Allergies As of Date: 04/20/2023 Noted Allergy Reaction PENICILLINS 09/05/2014 16 - Unknown 4 - Hives Date Reviewed: 03/19/2023 Reviewed by: Shari Morfin, RN - Fully Assessed Reason for Visit: bowel prep [Other] Visit Diagnosis:Colon cancer screening [Z12.11] Order(s):peg 3350-Electrolytes (GOLYTELY) 236-22.74-6.74 -5.86 gram suspensionTake 4,000 mL by mouth one time only for 1 dose. Refer to printed prep instructions from your provider.Disp: 4000 mLRfl: 0 Prescriptions as of 04/20/2023 - peg 3350-Electrolytes (GOLYTELY) 236-22.74-6.74 -5.86 gram suspension Take 4,000 mL by mouth one time only for 1 dose. Refer to printed prep instructions from your provider. - fluticasone (FLONASE) 50 mcg/actuation nasal spray Use 2 Sprays in each nostril once daily. Rinse mouth after use. - atorvastatin (LIPITOR) 40 mg tablet Take 1 tablet by mouth once daily. - buPROPion XL (WELLBUTRIN XL) 300 mg 24 hr tablet Take 1 tablet by mouth once daily. - Cholecalciferol, Vitamin D3, 50 mcg (2,000 unit) cap Take 1 capsule by mouth once daily. - pantoprazole DR (PROTONIX) 40 mg tablet Take 1 tablet by mouth once daily. Problem List As Of Date 04/20/2023 Noted Resolved Tobacco use [Z72.0] 05/12/2017 History of colonic polyps [Z86.010] 06/07/2017 Primary hypertension [I10] 03/03/2022 Memory difficulties [R41.3] 03/03/2022 Internal hemorrhoids [K64.8] 03/03/2022 Moderate episode of recurrent major depressive *04/01/2022 Multiple renal cysts [Q61.02] 04/01/2022 Ventral hernia without obstruction or gangrene *04/01/2022 05/22/2022 Hypercholesterolemia [E78.00] 05/22/2022 Prescriptions ordered this encounter Disp Refills Start End PEG 3350-ELECTROLYTES 236 GRAM-22.74* 4000* 0 04/20/2023 04/20/2023 Route: ORAL Sig: Take 4,000 mL by mouth one time only for 1 dose. Refer to printed prep instructions from your provider. Medications Discontinued During This Encounter Prescriptions - peg 3350-Electrolytes (GOLYTELY) 236-22.74-6.74 -5.86 gram suspension (Discontinued) Take 4,000 mL by mouth one time only for 1 dose. Refer to printed prep instructions from your provider. Encounter Status:Closed by BRIAN GIBSON on 04/20/23 Normal [facility] .GFRon 04-06-2023 GFR 98 ml/min/1.73sqm Normal [facility] ([place]) Comment on above: Result Comment: GFR Population mean for , Non- Americans Ages 20-29 = 116 mL/min/1.73 sq.m. Ages 30-39 = 107 mL/min/1.73 sq.m. Ages 40-49 = 99 mL/min/1.73 sq.m. Ages 50-59 = 93 mL/min/1.73 sq.m. Ages 60-69 = 85 mL/min/1.73 sq.m. Ages 70+ = 75 mL/min/1.73 sq.m. Chronic Kidney Disease: Less than 60 mL/min/1.73 square meters End Stage Renal Disease: Less than 15 mL/min/1.73 square meters Performed By: #### L DARWINID, CMP, GFR #### [address] [address] GFR Non- 81 ml/min/1.73sqm Normal [facility] ([place]) Comment on above: Result Comment: GFR Population mean for , Non- Americans Ages 20-29 = 116 mL/min/1.73 sq.m. Ages 30-39 = 107 mL/min/1.73 sq.m. Ages 40-49 = 99 mL/min/1.73 sq.m. Ages 50-59 = 93 mL/min/1.73 sq.m. Ages 60-69 = 85 mL/min/1.73 sq.m. Ages 70+ = 75 mL/min/1.73 sq.m. Chronic Kidney Disease: Less than 60 mL/min/1.73 square meters End Stage Renal Disease: Less than 15 mL/min/1.73 square meters Performed By: #### L IPID, CMP, GFR #### Natty [address] [address] CMPon 02-27-2024 Albumin Level 3.9 G/dL Normal 3.5-5.0 [facility] ([place]) Comment on above: Performed By: #### L IPID, CMP, GFR #### [address] [address] Albumin/Globulin [Mass ratio] 1.2 {ratio} Normal 1.1-2.5 [facility] ([place]) Comment on above: Performed By: #### L IPID, CMP, GFR #### [address] [address] ALP [Catalytic activity/Vol] 86 U/L Normal 40-135 [facility] ([place]) Comment on above: Performed By: #### L IPID, CMP, GFR #### [address] [address] ALT [Catalytic activity/Vol] 28 U/L Normal 16-63 [facility] ([place]) Comment on above: Performed By: #### L IPID, CMP, GFR #### [address] [address] AST [Catalytic activity/Vol] 14 U/L Normal 10-40 [facility] ([place]) Comment on above: Performed By: #### L IPID, CMP, GFR #### [address] [address] Bili Total 0.5 mg/dL Normal 0.2-1.0 [facility] ([place]) Comment on above: Result Comment: Use of this assay is not recommended for patients undergoing treatment with eltrombopag due to the potential for falsely elevated results. Performed By: #### L IPID, CMP, GFR #### [address] [address] BUN/Creatinine Ratio 16 ratio Normal 7-27 [facility] ([place]) Comment on above: Performed By: #### L IPID, CMP, GFR #### [address] [address] Calcium [Mass/Vol] 9.1 mg/dL Normal 8.4-10.2 [facility] ([place]) Comment on above: Performed By: #### L IPID, CMP, GFR #### [address] [address] Chloride [Moles/Vol] 104 mmol/L Normal 98-107 [facility] ([place]) Comment on above: Performed By: #### L IPID, CMP, GFR #### [address] [address] CO2 [Moles/Vol] 25 mmol/L Normal 22-29 [facility] ([place]) Comment on above: Performed By: #### L IPID, CMP, GFR #### [address] [address] Creatinine [Mass/Vol] 0.96 mg/dL Normal 0.70-1.30 [facility] ([place] Comment on above: Performed By: #### L IPID, CMP, GFR #### [address] [address] Electrolyte Balance 12.0 mEq/L Normal 4.0-15.0 [facility] ([place]) Comment on above: Performed By: #### L IPID, CMP, GFR #### [address] [address] Globulin 3.2 G/dL Normal [facility] ([place]) Comment on above: Performed By: #### L IPID, CMP, GFR #### [address] [address] Glucose [Mass/Vol] 106 mg/dL High 70-105 [facility] ([place]) Comment on above: Performed By: #### L IPID, CMP, GFR #### [address] [address] Potassium [Moles/Vol] 4.3 mmol/L Normal 3.5-5.1 [facility] ([place]) Comment on above: Performed By: #### L IPID, CMP, GFR #### [address] [address] Sodium [Moles/Vol] 141 mmol/L Normal 136-145 [facility] ([place]) Comment on above: Performed By: #### L IPID, CMP, GFR #### [address] [place], [place] [address] Total Protein 7.1 G/dL Normal 6.4-8.2 [facility] ([place]) Comment on above: Performed By: #### L IPID, CMP, GFR #### [address] [place], [place] [address] Urea nitrogen [Mass/Vol] 15 mg/dL Normal 7-18 [facility] ([place]) Comment on above: Performed By: #### L IPID, CMP, GFR #### [address] [place], [place] [address] LABORATORYOrdered By: Mookie Burgess on 04-06-2023 Albumin DL <= 20 mg/L (U) [Mass/Vol] 728 mcg/dL Invalid Interpretation Code AO ADM SS Albumin/Creatinine DL <= 20 mg/L (U) [Mass ratio] 10 mcg/mg Normal 0 - 30 mcg/mg AO ADM SS Creatinine (U) [Mass/Vol] 73.8 mg/dL Normal 39.0 - 259.0 mg/dL AO ADM SS Cholesterol [Mass/Vol] 245 mg/dL High 0 - 200 mg/dL AO ADM SS Comment on above: Interpretive Data: C holesterol Reference Interval: Less than 200 Desirable 200-239 Borderline high risk 240 and above High risk Cholesterol in HDL [Mass/Vol] 65 mg/dL High 40 - 60 mg/dL AO ADM SS Cholesterol in LDL [Mass/Vol] 160 mg/dL High 0 - 130 mg/dL AO ADM SS Triglyceride [Mass/Vol] 99 mg/dL Normal 0 - 150 mg/dL AO ADM SS Comment on above: Interpretive Data: T riglyceride Reference Interval: Less than 150 Normal 150-199 Borderline high risk 200-499 High risk 500 or higher Very high risk LABORATORYOrdered By: SYSTEM SYSTEM on 04-06-2023 Albumin BCP dye [Mass/Vol] 3.9 G/dL Normal 3.5 - 5.0 G/dL AO ADM SS Albumin/Globulin [Mass ratio] 1.2 {ratio} Normal 1.1 - 2.5 ratio AO ADM SS ALP [Catalytic activity/Vol] 86 U/L Normal 40 - 135 U/L AO ADM SS ALT With P-5'-P [Catalytic activity/Vol] 28 U/L Normal 16 - 63 U/L AO ADM SS AST With P-5'-P [Catalytic activity/Vol] 14 U/L Normal 10 - 40 U/L AO ADM SS Bilirubin [Mass/Vol] 0.5 mg/dL Normal 0.2 - 1 .0 mg/dL AO ADM SS Comment on above: Interpretive Data: U se of this assay is not recommended for patients undergoing treatment with eltrombopag due to the potential for falsely elevated results. Calcium [Mass/Vol] 9.1 mg/dL Normal 8.4 - 10. 2 mg/dL AO ADM SS Chloride [Moles/Vol] 104 mmol/L Normal 98 - 10 7 mmol/L AO ADM SS CO2 [Moles/Vol] 25 mmol/L Normal 22 - 29 mmol/L AO ADM SS Creatinine [Mass/Vol] 0.96 mg/dL Normal 0.70 - 1.30 mg/dL AO ADM SS Electrolyte Balance 12.0 mEq/L Normal 4.0 - 15 .0 mEq/L AO ADM SS GFR/1.73 sq M.predicted among blacks MDRD (S/P/Bld) [Vol rate/Area] 98 ml/min/1.73sqm Invalid Interpretation Code AO Chemistry S Comment on above: Interpretive Data: GFR Population mean for , Non- Americans Ages 20-29 = 116 mL/min/1.73 sq.m. Ages 30-39 = 107 mL/min/1.73 sq.m. Ages 40-49 = 99 mL/min/1.73 sq.m. Ages 50-59 = 93 mL/min/1.73 sq.m. Ages 60-69 = 85 mL/min/1.73 sq.m. Ages 70+ = 75 mL/min/1.73 sq.m. Chronic Kidney Disease: Less than 60 mL/min/1.73 square meters End Stage Renal Disease: Less than 15 mL/min/1.73 square meters GFR/1.73 sq M.predicted among non-blacks MDRD (S/P/Bld) [Vol rate/Area] 81 ml/min/1.73sqm Invalid Interpretation Code AO Chemistry S Comment on above: Interpretive Data: GFR Population mean for , Non- Americans Ages 20-29 = 116 mL/min/1.73 sq.m. Ages 30-39 = 107 mL/min/1.73 sq.m. Ages 40-49 = 99 mL/min/1.73 sq.m. Ages 50-59 = 93 mL/min/1.73 sq.m. Ages 60-69 = 85 mL/min/1.73 sq.m. Ages 70+ = 75 mL/min/1.73 sq.m. Chronic Kidney Disease: Less than 60 mL/min/1.73 square meters End Stage Renal Disease: Less than 15 mL/min/1.73 square meters Globulin 3.2 G/dL Invalid Interpretation Code AO ADM SS Glucose [Mass/Vol] 106 mg/dL High 70 - 105 mg/dL AO ADM SS Potassium [Moles/Vol] 4.3 mmol/L Normal 3.5 - 5.1 mmol/L AO ADM SS Protein [Mass/Vol] 7.1 G/dL Normal 6.4 - 8.2 G/dL AO ADM SS Sodium [Moles/Vol] 141 mmol/L Normal 136 - 145 mmol/L AO ADM SS Urea nitrogen [Mass/Vol] 15 mg/dL Normal 7 - 18 mg/dL AO ADM SS Urea nitrogen/Creatinine [Mass ratio] 16 ratio Normal 7 - 27 ratio AO ADM SS LIPIDon 04-06-2023 Cholesterol [Mass/Vol] 245 mg/dL High 0-200 [facility] ([place]) Comment on above: Result Comment: Chol esterol Reference Interval: Less than 200 Desirable 200-239 Borderline high risk 240 and above High risk Performed By: #### L IPID, CMP, GFR #### [address] [address] Cholesterol in HDL [Mass/Vol] 65 mg/dL High 40-60 [facility] ([place] Comment on above: Performed By: #### L IPID, CMP, GFR #### [address] [address] Cholesterol in LDL [Mass/Vol] 160 mg/dL High 0-130 [facility] ([place] Comment on above: Performed By: #### L IPID, CMP, GFR #### Natty [address] [address] Triglyceride [Mass/Vol] 99 mg/dL Normal 0-150 [facility] ([place] Comment on above: Result Comment: Trig lyceride Reference Interval: Less than 150 Normal 150-199 Borderline high risk 200-499 High risk 500 or higher Very high risk Performed By: #### L IPID, CMP, GFR #### [address] [address] MALBRon 04-06-2023 U Creatinine 73.8 mg/dL Normal 39.0-259.0 [facility] ([place] Comment on above: Performed By: #### M ALBR #### [address] [address] U Microalb 728 mcg/dL Normal [facility] ([place] Comment on above: Performed By: #### M ALBR #### [address] [address] U Ratio Alb/Cre 10 mcg/mg Normal 0-30 [facility] ([place] Comment on above: Performed By: #### M ALBR #### [address] [address] PSA/PROSTSPECAG SCRNon 03-23 Prostate specific Ag [Mass/Vol] 0.73 ng/mL Normal <2.60 [facility] Comment on above: Order Comment: Speci men Type: BLOOD SPECIMENOrdering Facility: [facility] Address: [address] [place] [address] Result Comment: Tota padilla PSA test methodology used is the Electrochemiluminescence Immunoassay by [employer]. Total PSA values by differing methodologies cannot be interchanged. Performed By: #### P SAS1 ####[facility] LABCLIA [id number] [place] [address] [place] UA DIP, URINE (POC)on 2022 BILIRUBIN UA (POCT) Negative Negative [facility] CLARITY UA (POCT) Clear [facility] COLOR UA (POCT) Yellow [facility] GLUCOSE UA (POCT) Negative Negative mg/dL [facility] Hemoglobin Ql (U) Negative Negative [facility] KETONE UA (POCT) Negative Negative mg/dL [facility] LEUKOCYTES UA (POCT) Negative Negative [facility] NITRITE UA (POCT) Negative Negative [facility] PH UA (POCT) 7.5 4.5 - 8.0 [facility] Protein Ql (U) Negative Negative mg/dL [facility] SPECIFIC GRAVITY UA (POCT) 1.025 1.005 - 1.030 [facility] UROBILINOGEN UA (POCT) 0.2 E.U./dL Normal E.U./dL [facility] HEMOGLOBIN A1C (POC)on 05-22 HbA1c (Bld) [Mass fraction] 6.2 % 4.2 - 5.6 % [facility] UA DIP, URINE (POC)on 2022 BILIRUBIN UA (POCT) Negative Negative [facility] CLARITY UA (POCT) Clear [facility] COLOR UA (POCT) Yellow [facility] GLUCOSE UA (POCT) Negative Negative mg/dL [facility] HEMOGLOBIN/BLOOD UA (POCT) Trace-intact Abnormal Negative [facility] KETONE UA (POCT) Negative Negative mg/dL [facility] LEUKOCYTES UA (POCT) Negative Negative [facility] NITRITE UA (POCT) Negative Negative [facility] PH UA (POCT) 6.0 4.5 - 8.0 [facility] Protein Ql (U) Negative Negative mg/dL [facility] SPECIFIC GRAVITY UA (POCT) 1.020 1.005 - 1.030 [facility] UROBILINOGEN UA (POCT) 0.2 E.U./dL Normal E.U./dL [facility] Absolute lymphocyte countOrd ered By: Dr. Vergara on 03-05-2022 Lymphocytes Auto (Unsp spec) [#/Vol] 3.90 10*3/uL 0.83-4.51 [facility] Basophil percentageOrdered B y: Dr. Mathews on 03-05-2022 Cholesterol [Mass/Vol] 257 mg/dL <200 [facility] Comment on above: <200 mg/dL Desirable 200-240 mg/dL Borderline >240 mg/dL High Risk Triglyceride [Mass/Vol] 114 mg/dL <199 [facility] Comment on above: The drugs N-Acetylcy steine and Metamizole may falsely depress this assay.Serum Triglycerides Reference Interval Normal <150 mg/dL Borderline high 150 - 199 mg/dL High 200 - 499 mg/dL Very High > or = 500 mg/dL Basophil percentageOrdered B y: Dr. Vergara on 03-05-2022 Basophils/100 WBC (Bld) 0.6 % 0-1 [facility] Chloride [Moles/Vol] 108 mmol/L 98-107 [facility] Eosinophils/100 WBC (Bld) 2.5 % 0-5 [facility] Glucose [Mass/Vol] 133 mg/dL 74-106 [facility] Comment on above: Fasting Glucose resu lt greater than or equal to 126 mg/dL suggests DIABETES MELLITUS per A.D.A. criteria. Neutrophils (Bld) [#/Vol] 4.6 10*3/uL 2.0-7.7 [facility] Neutrophils/100 WBC (Bld) 47.3 % 47-70 [facility] Potassium [Moles/Vol] 4.0 mmol/L 3.5-5.1 [facility] Sodium [Moles/Vol] 139 mmol/L 136-145 [facility] WBC (Bld) [#/Vol] 9.8 10*3/uL 4.4-11.0 [facility] Blood erythrocytes count (nu mber/volume)Ordered By: Dr. Vergara on 03-05-2022 RBC (Bld) [#/Vol] 5.92 10*6/uL 4.6-6.2 [facility] Blood hemoglobin measurement (mass/volume)Ordered By: Dr. Vergara on 03-05-2022 Hemoglobin (Bld) [Mass/Vol] 18.0 g/dL 13.0-16.5 [facility] Blood lymphocytes/100 leukoc ytesOrdered By: Dr. Vergara on 03-05-2022 Lymphocytes/100 WBC (Bld) 40.0 % 19-41 [facility] Blood monocytes/100 leukocyt esOrdered By: Dr. Vergara on 03-05-2022 Monocytes/100 WBC (Bld) 9.0 % 0-10 [facility] Blood platelet mean volumeOr dered By: Dr. Vergara on 03-05-2022 Platelet mean volume (Bld) [Entitic vol] 9.3 fL 6.2-12.0 [facility] Determination of erythrocyte mean corpuscular volume (MCV)Ordered By: Dr. Vergara on 03-05-2022 MCV (RBC) [Entitic vol] 90.5 fL 80-94 [facility] Hematocrit Auto (Bld) [Volum e fraction]Ordered By: Dr. Vergara on 03-05-2022 Hematocrit (Bld) [Volume fraction] 53.6 % 40-54 [facility] Laboratory - Chemistry and C hemistry - challengeOrdered By: Dr. Vergara on 03-05-2022 CO2 [Moles/Vol] 25.0 mmol/L 21.0-32.0 [facility] Urea nitrogen/Creatinine [Mass ratio] 17.9 mg/mg 10-20 [facility] Laboratory - Chemistry and C hemistry - challengeOrdered By: Dr. Mathews on 03-05-2022 Magnesium [Mass/Vol] 2.5 mg/dL 1.6-2.6 [facility] Laboratory - CoagulationOrde red By: Dr. Vergara on 03-05-2022 aPTT Coag (Bld) [Time] 32.1 s 24.1-36.2 [facility] Laboratory - Hematology and Cell countsOrdered By: Dr. Vergara on 03-05-2022 Erythrocyte distribution width (RBC) [Entitic vol] 45.8 fL 35.1-43.9 [facility] Erythrocyte distribution width (RBC) [Ratio] 13.5 % 11.6-14.6 [facility] Immature granulocytes/100 WBC (Bld) 0.600 % 0.0-0.9 [facility] Comment on above: IG% - Immature Granu locytes (promyelocytes, myelocytes and metamyelocytes) > 1% indicates that a LEFT SHIFT is Present. MCH (RBC) [Entitic mass] 30.4 pg 27.0-32.0 [facility] Nucleated RBC/100 WBC (Bld) [Ratio] 0 % 0-5 [facility] MCHC Auto (RBC) [Mass/Vol]Or dered By: Dr. Vergara on 03-05-2022 MCHC (RBC) [Mass/Vol] 33.6 g/dL 32-36 [facility] No Panel InformationOrdered By: Dr. Vergara on 03-05-2022 Estimated Creatinine Clearance Calc 98.71 ml/min [facility] Estimated GFR (MDRD) Amer 113 mL/min >60 [facility] Comment on above: GFR Calc Estimated GFR (MDRD) Non-Af Amer 94 mL/min >60 [facility] Comment on above: Non- GFR Calc Troponin I High Sensitivity 7 pg/mL 3.0-78.0 [facility] Comment on above: Please Note: New Bhargavi t Units and Gender Specific Reference Ranges. For more information see Policy Stat Procedure [place] High Sensitivity Troponin (TNIH) and attachments. Platelets bldOrdered By: Dr. Vergara on 03-05-2022 Platelets (Bld) [#/Vol] 316 10*3/uL 150-450 [facility] Review by pathologistOrdered By: Dr. Vergara on 03-05-2022 Pathologist review Jaswant (Unsp spec) [Interp] May foll [facility] Serum or plasma calcium ga urement (mass/volume)Ordered By: Dr. Vergara on 03-05-2022 Calcium [Mass/Vol] 9.5 mg/dL 8.5-10.1 [facility] Serum or plasma cholesterol in HDL measurement (mass/volume)Ordered By: Dr. Mathews on 03-05-2022 Cholesterol in HDL [Mass/Vol] 63 mg/dL >40 [facility] Comment on above: The drugs N-Acetylcy steine and Metamizole may falsely depress this assay. Reference Range HDL <40 mg/dL Low HDL Cholesterol HDL >or= 60 mg/dL High HDL Cholesterol Serum or plasma cholesterol in VLDL measurement (mass/volume)Ordered By: Dr. Mahtews on 03-05-2022 Cholesterol in VLDL [Mass/Vol] 23 mg/dL 5-40 [facility] Serum or plasma creatinine m easurement (mass/volume)Ordered By: Dr. Vergara on 03-05-2022 Creatinine [Mass/Vol] 0.89 mg/dL 0.70-1.30 [facility] Comment on above: The validity of the calculated GFR & GFRAA in patients over 70 years has not been determined. Clinical correlation is essential. Serum or plasma low density lipoprotein (LDL) cholesterol measurement (mass/volume)Ordered By: Dr. Mathews on 03-05-2022 Cholesterol in LDL [Mass/Vol] 171 mg/dL 0-130 [facility] Serum or plasma urea nitroge n measurement (mass/volume)Ordered By: Dr. Vergara on 03-05-2022 Urea nitrogen [Mass/Vol] 16 mg/dL 7-18 [facility] Thin prep Papanicolaou smear with manual screeningOrdered By: Dr. Vergara on 03-05-2022 Thin prep Papanicolaou smear with manual screening 6 5-15 [facility] Whole blood hemoglobin A1c/t otal hemoglobin ratio (mass fraction)Ordered By: Dr. Mathews on 03-05-2022 HbA1c (Bld) [Mass fraction] 5.9 % 3.8-5.6 [facility] Comment on above: Normal < 5.7 % Predi abetic 5.7 - 6.4 % Diabetic >or= 6.5 % Please note range changes. Absolute lymphocyte counton 07-05-2021 Lymphocytes Auto (Unsp spec) [#/Vol] 2.04 10*3/uL 0.83-4.51 [facility] Work Phone: Basophil percentageon 2021 Basophils/100 WBC (Bld) 0.3 % 0-1 [facility] Work Phone: Bilirubin [Mass/Vol] 0.50 mg/dL 0.20-1.00 [facility] Work Phone: Comment on above: For patients on eltr ombopag therapy, use of Dimension [place] TBIL is not recommended. Chloride [Moles/Vol] 106 mmol/L 98-107 [facility] Work Phone: Eosinophils/100 WBC (Bld) 1.8 % 0-5 [facility] Work Phone: Glucose [Mass/Vol] 135 mg/dL 74-106 [facility] Work Phone: Comment on above: Fasting Glucose resu lt greater than or equal to 126 mg/dL suggests DIABETES MELLITUS per A.D.A. criteria. Neutrophils (Bld) [#/Vol] 10.2 10*3/uL 2.0-7.7 [facility] Work Phone: Neutrophils/100 WBC (Bld) 74.6 % 47-70 [facility] Work Phone: Potassium [Moles/Vol] 3.9 mmol/L 3.5-5.1 [facility] Work Phone: Protein [Mass/Vol] 7.1 g/dL 6.4-8.2 [facility] Work Phone: Sodium [Moles/Vol] 139 mmol/L 136-145 [facility] Work Phone: WBC (Bld) [#/Vol] 13.6 10*3/uL 4.4-11.0 [facility] Work Phone: Blood erythrocytes count (nu mber/volume)on 07-05-2021 RBC (Bld) [#/Vol] 5.56 10*6/uL 4.6-6.2 [facility] Work Phone: Blood hemoglobin measurement (mass/volume)on 07-05-2021 Hemoglobin (Bld) [Mass/Vol] 17.1 g/dL 13.0-16.5 [facility] Work Phone: Blood lymphocytes/100 leukoc yteson 07-05-2021 Lymphocytes/100 WBC (Bld) 15.0 % 19-41 [facility] Work Phone: Blood monocytes/100 leukocyt eson 07-05-2021 Monocytes/100 WBC (Bld) 7.9 % 0-10 [facility] Work Phone: Blood platelet mean volumeon 07-05-2021 Platelet mean volume (Bld) [Entitic vol] 9.4 fL 6.2-12.0 [facility] Work Phone: Determination of erythrocyte mean corpuscular volume (MCV)on 07-05-2021 MCV (RBC) [Entitic vol] 89.7 fL 80-94 [facility] Work Phone: Hematocrit Auto (Bld) [Volum e fraction]on 07-05-2021 Hematocrit (Bld) [Volume fraction] 49.9 % 40-54 [facility] Work Phone: [phone] Laboratory - Chemistry and C hemistry - challengeon 07-05-2021 ALP [Catalytic activity/Vol] 88 U/L 45-117 [facility] Work Phone: [phone] ALT [Catalytic activity/Vol] 29 U/L 16-61 [facility] Work Phone: [phone] CO2 [Moles/Vol] 28.0 mmol/L 21.0-32.0 [facility] Work Phone: [phone] Globulin (S) [Mass/Vol] 3.4 g/dL 2.2-4.2 [facility] Work Phone: [phone] Lipase [Catalytic activity/Vol] 122 U/L 73-393 [facility] Work Phone: [phone] Urea nitrogen/Creatinine [Mass ratio] 25.4 mg/mg 10-20 [facility] Work Phone: [phone] Laboratory - Hematology and Cell countson 07-05-2021 Erythrocyte distribution width (RBC) [Entitic vol] 44.4 fL 35.1-43.9 [facility] Work Phone: [phone] Erythrocyte distribution width (RBC) [Ratio] 13.4 % 11.6-14.6 [facility] Work Phone: [phone] Immature granulocytes/100 WBC (Bld) 0.400 % 0.0-0.9 [facility] Work Phone: [phone] Comment on above: IG% - Immature Granu locytes (promyelocytes, myelocytes and metamyelocytes) > 1% indicates that a LEFT SHIFT is Present. MCH (RBC) [Entitic mass] 30.8 pg 27.0-32.0 [facility] Work Phone: [phone] Nucleated RBC/100 WBC (Bld) [Ratio] 0 % 0-5 [facility] Work Phone: [phone] MCHC Auto (RBC) [Mass/Vol]on 07-05-2021 MCHC (RBC) [Mass/Vol] 34.3 g/dL 32-36 [facility] Work Phone: [phone] Panel Informationon 07-05 Estimated Creatinine Clearance Calc 94.57 ml/min [facility] Work Phone: [phone] Estimated GFR (MDRD) Amer 106 mL/min >60 [facility] Work Phone: [phone] Comment on above: GFR Calc Estimated GFR (MDRD) Non-Af Amer 88 mL/min >60 [facility] Work Phone: [phone] Comment on above: Non- GFR Calc Platelets bldon 07-05-2021 Platelets (Bld) [#/Vol] 287 10*3/uL 150-450 [facility] Work Phone: [phone] Serum or plasma albumin ga urement (mass/volume)on 07-05-2021 Albumin [Mass/Vol] 3.7 g/dL 3.2-5.0 [facility] Work Phone: [phone] Serum or plasma albumin/glob ulin mass ratioon 07-05-2021 Albumin/Globulin [Mass ratio] 1.1 {ratio} 0.9-2.4 [facility] Work Phone: [phone] Serum or plasma calcium ga urement (mass/volume)on 07-05-2021 Calcium [Mass/Vol] 8.9 mg/dL 8.5-10.1 [facility] Work Phone: [phone] Serum or plasma creatinine m easurement (mass/volume)on 07-05-2021 Creatinine [Mass/Vol] 0.94 mg/dL 0.70-1.30 [facility] Work Phone: Comment on above: The validity of the calculated GFR & GFRAA in patients over 70 years has not been determined. Clinical correlation is essential. Serum or plasma urea nitroge n measurement (mass/volume)on 07-05-2021 Urea nitrogen [Mass/Vol] 24 mg/dL 7-18 [facility] Work Phone: [phone] Thin prep Papanicolaou smear with manual screeningon 07-05-2021 Thin prep Papanicolaou smear with manual screening 16 U/L 15-37 [facility] Work Phone: Thin prep Papanicolaou smear with manual screening 5 5-15 [facility] Work Phone: XR Lumbar spine 3 Viewson IMPRESSION: Lumbar s pine degenerative changes with L2-3 disc space narrowing. Rn Cardiac: MAGDIEL Transcribe Date/Time: May 13 2020 10:59A Dictated by : SARAH CESAR MD This examination was interpreted and the report reviewed and electronically signed by: SARAH CESAR MD on May 13 2020 11:03AM [facility] DIVISION OF RADIOLOGY * * *Final Report* * * DATE OF EXAM: May 13 2020 10:37AM [id number] - XR LUMBAR 3V AP/LAT/L5-S1 / PROCEDURE REASON: Acute bilateral low back pain without sciatica * * * * Physician Interpretation * * * * EXAM TITLE: XR LUMBAR 3V AP/LAT/L5-S1 EXAM DATE/TIME: 05/13/2020 10:37 AM COMPARISON: None. CLINICAL INDICATION/HISTORY: Low back pain. TECHNIQUE: AP, lateral and cone down lateral views of the lumbar spine are presented. FINDINGS: There are five ygi-[id number] lumbar vertebrae. There is left-sided curvature/levoscoliosis. No fracture or subluxations are noted. L2-3 disc space narrowing is demonstrated. Questionable focal lucency in the L3 pedicle. There is mild osteophyte formation. Others: A cluster of calcification along the pubic symphysis, likely representing prostate calcifications. There are degenerative changes in the hips. DIVISION OF RADIOLOGY Provider, [facility] - 05/13/2020 * * *Final Report* * * DATE OF EXAM: May 13 2020 10:37AM WOX [id number] - XR LUMBAR 3V AP/LAT/L5-S1 / PROCEDURE REASON: Acute bilateral low back pain without sciatica * * * * Physician Interpretation * * * * EXAM TITLE: XR LUMBAR 3V AP/LAT/L5-S1 EXAM DATE/TIME: 05/13/2020 10:37 AM COMPARISON: None. CLINICAL INDICATION/HISTORY: Low back pain. TECHNIQUE: AP, lateral and cone down lateral views of the lumbar spine are presented. FINDINGS: There are five omm-krs-[id number] lumbar vertebrae. There is left-sided curvature/levoscoliosis. No fracture or subluxations are noted. L2-3 disc space narrowing is demonstrated. Questionable focal lucency in the L3 pedicle. There is mild osteophyte formation. Others: A cluster of calcification along the pubic symphysis, likely representing prostate calcifications. There are degenerative changes in the hips. IMPRESSION IMPRESSION: Lumbar spine degenerative changes with L2-3 disc space narrowing. Rn Cardiac: MAGDIEL Transcribe Date/Time: May 13 2020 10:59A Dictated by : SARAH CESAR MD This examination was interpreted and the report reviewed and electronically signed by: SARAH CESAR MD on May 13 2020 11:03AM EST [facility] Radiology Study observation (narrative) [facility] XR Lumbar spine 3 ViewsOrder ed By: [facility] Provider on 05-13-2020 [facility] Vital Signs Date Time Vital Sign Value Performing Clinician Facility 10-24-2024 13:13-0400 Body temperature 98.1 [degF] Brian Paige LAW EXAMINER-C Work Phone: [facility] 10-24-2024 13:13-0400 Diastolic blood pressure 80 mm[Hg] Brian Paige LAW EXAMINER-C Work Phone: [facility] 10-24-2024 13:13-0400 Heart rate 86 /min Brian Paige LAW EXAMINER-C Work Phone: [facility] 10-24-2024 13:13-0400 Respiratory rate 18 /min Brian Paige LAW EXAMINER-C Work Phone: [facility] 10-24-2024 13:13-0400 SaO2% (BldA) [Mass fraction] 97 % Brian Paige LAW EXAMINER-C Work Phone: [facility] 10-24-2024 13:13-0400 Systolic blood pressure 124 mm[Hg] Brian Paige LAW EXAMINER-C Work Phone: [facility] 10-19-2024 17:20-0400 Body temperature 98.2 [degF] Brian Paige LAW EXAMINER-C Work Phone: [facility] 10-19-2024 17:20-0400 Diastolic blood pressure 74 mm[Hg] Brian Paige LAW EXAMINER-C Work Phone: [facility] 10-19-2024 17:20-0400 Heart rate 62 /min Brian Paige LAW EXAMINER-C Work Phone: [facility] 10-19-2024 17:20-0400 Respiratory rate 15 /min Brian Paige LAW EXAMINER-C Work Phone: [facility] 10-19-2024 17:20-0400 SaO2% (BldA) [Mass fraction] 94 % Brian Paige LAW EXAMINER-C Work Phone: [facility] 10-19-2024 17:20-0400 Systolic blood pressure 132 mm[Hg] Brian Paige LAW EXAMINER-C Work Phone: [facility] 08-21-2024 08:03-0400 Body height 180.34 cm Brian Paige LAW EXAMINER-C Work Phone: [facility] 08-21-2024 08:03-0400 Body mass index (BMI) [Ratio] 23.7 kg/m2 Brian Paige LAW EXAMINER-C Work Phone: [facility] 08-21-2024 08:03-0400 Body temperature 98.1 [degF] Brian Paige LAW EXAMINER-C Work Phone: [facility] 08-21-2024 08:03-0400 Body weight 77.11 kg Brian Paige LAW EXAMINER-C Work Phone: [facility] 08-21-2024 08:03-0400 Diastolic blood pressure 90 mm[Hg] Brian Paige LAW EXAMINER-C Work Phone: [facility] 08-21-2024 08:03-0400 Heart rate 86 /min Brian Paige LAW EXAMINER-C Work Phone: [facility] 08-21-2024 08:03-0400 Respiratory rate 12 /min Brian Paige LAW EXAMINER-C Work Phone: [facility] 08-21-2024 08:03-0400 SaO2% (BldA) [Mass fraction] 99 % Brian Paige LAW EXAMINER-C Work Phone: [facility] 08-21-2024 08:03-0400 Systolic blood pressure 140 mm[Hg] Brian Paige LAW EXAMINER-C Work Phone: [facility] 06-21-2024 23:20-0400 Body temperature 98.4 [degF] Brian Paige LAW EXAMINER-C Work Phone: [facility] 06-21-2024 23:20-0400 Diastolic blood pressure 78 mm[Hg] Brian Paige LAW EXAMINER-C Work Phone: [facility] 06-21-2024 23:20-0400 Heart rate 89 /min Brian Paige LAW EXAMINER-C Work Phone: [facility] 06-21-2024 23:20-0400 Respiratory rate 18 /min Brian Paige LAW EXAMINER-C Work Phone: [facility] 06-21-2024 23:20-0400 SaO2% (BldA) [Mass fraction] 96 % Brian Paige LAW EXAMINER-C Work Phone: [facility] 06-21-2024 23:20-0400 Systolic blood pressure 145 mm[Hg] Brian Paige LAW EXAMINER-C Work Phone: [facility] 06-21-2024 22:00-0400 Body height 180.34 cm Brian Paige LAW EXAMINER-C Work Phone: [facility] 06-21-2024 22:00-0400 Body mass index (BMI) [Ratio] 23.4 kg/m2 Brian Paige LAW EXAMINER-C Work Phone: [facility] 06-21-2024 22:00-0400 Body weight 76.24 kg Brian Paige LAW EXAMINER-C Work Phone: [facility] 01-13-2024 08:54-0500 Diastolic blood pressure 94 mm[Hg] Db Vences APRN.CHILDREN'S L[employer]CHRO[employer] SUPERVISOR Work Phone: [facility] Comment on above: bp average 01-13-2024 08:54-0500 Heart rate 87 /min Db Vences APRN.CHILDREN'S LUNCHRO[employer] SUPERVISOR Work Phone: [facility] 01-13-2024 08:54-0500 Systolic blood pressure 147 mm[Hg] Db Vences TELEHEALTH CASE MANAGER.CHILDREN'S LUNCHRO[employer] SUPERVISOR Work Phone: [facility] Comment on above: bp average 01-13-2024 08:46-0500 Body mass index (BMI) [Ratio] 26.17 kg/m2 Db Vecnes TELEHEALTH CASE MANAGER.CHILDREN'S LUNCHRO[employer] SUPERVISOR Work Phone: [facility] 01-13-2024 08:46-0500 Body weight 75.8 kg Db Vences TELEHEALTH CASE MANAGER.CHILDREN'S LUNCH[employer] SUPERVISOR Work Phone: [facility] 01-13-2024 08:46-0500 Respiratory rate 16 /min Db Vences TELEHEALTH CASE MANAGER.CHILDREN'S L[employer]CH[employer] SUPERVISOR Work Phone: [facility] 12-24-2023 10:01-0500 Diastolic blood pressure 100 mm[Hg] Brian Paige TELEHEALTH CASE MANAGER.CRUISE DIRECTOR Work Phone: [facility] 12-24-2023 10:01-0500 Systolic blood pressure 124 mm[Hg] Brian Paige TELEHEALTH CASE MANAGER.CRUISE DIRECTOR Work Phone: [facility] 12-24-2023 09:59-0500 Body mass index (BMI) [Ratio] 26.1 kg/m2 Brian Paige TELEHEALTH CASE MANAGER.CRUISE DIRECTOR Work Phone: [facility] 12-24-2023 09:59-0500 Body weight 75.6 kg Brian Paige TELEHEALTH CASE MANAGER.CRUISE DIRECTOR Work Phone: [facility] 12-24-2023 09:59-0500 Heart rate 54 /min Brian Paige TELEHEALTH CASE MANAGER.CRUISE DIRECTOR Work Phone: [facility] 12-24-2023 09:59-0500 SaO2% (BldA) [Mass fraction] 97 % Brian Paige TELEHEALTH CASE MANAGER.CRUISE DIRECTOR Work Phone: [facility] 12-21-2023 15:44-0500 Body mass index (BMI) [Ratio] 27.04 kg/m2 Hayden Conner TELEHEALTH CASE MANAGER.CRUISE DIRECTOR Work Phone: [facility] 12-21-2023 15:44-0500 Body temperature 97.59 [degF] [facility] TELEHEALTH CASE MANAGER.CRUISE DIRECTOR Work Phone: [facility] 12-21-2023 15:44-0500 Body weight 78.3 kg [facility] TELEHEALTH CASE MANAGER.CRUISE DIRECTOR Work Phone: [facility] 12-21-2023 15:44-0500 Diastolic blood pressure 78 mm[Hg] [facility] TELEHEALTH CASE MANAGER.CRUISE DIRECTOR Work Phone: [facility] 12-21-2023 15:44-0500 Heart rate 90 /min [facility] TELEHEALTH CASE MANAGER.CRUISE DIRECTOR Work Phone: [facility] 12-21-2023 15:44-0500 Respiratory rate 16 /min [facility] TELEHEALTH CASE MANAGER.CRUISE DIRECTOR Work Phone: [facility] 12-21-2023 15:44-0500 SaO2% (BldA) [Mass fraction] 96 % [facility] TELEHEALTH CASE MANAGER.CRUISE DIRECTOR Work Phone: [facility] 12-21-2023 15:44-0500 Systolic blood pressure 130 mm[Hg] [facility] TELEHEALTH CASE MANAGER.CRUISE DIRECTOR Work Phone: [facility] 12-07-2023 10:02-0400 Body mass index (BMI) [Ratio] 26.85 kg/m2 Claudine Calderon PA-C Work Phone: [facility] 12-07-2023 10:02-0400 Body temperature 98.2 [degF] Claudine Calderon PA-C Work Phone: [facility] 12-07-2023 10:02-0400 Body weight 77.75 kg Claudine Wildeer PA-C Work Phone: [facility] 12-07-2023 10:02-0400 Diastolic blood pressure 106 mm[Hg] Claudine Wildeer PA-C Work Phone: [facility] 12-07-2023 10:02-0400 Heart rate 87 /min Claudine Calderon PA-C Work Phone: [facility] 12-07-2023 10:02-0400 Respiratory rate 16 /min Claudine Wildeangie PA-C Work Phone: [facility] 12-07-2023 10:02-0400 SaO2% (BldA) [Mass fraction] 98 % Claudine Calderon PA-C Work Phone: [facility] 12-07-2023 10:02-0400 Systolic blood pressure 152 mm[Hg] Claudine Wildeangie PA-C Work Phone: [facility] 11-22-2023 12:57-0400 Diastolic blood pressure 96 mm[Hg] Brian Paige TELEHEALTH CASE MANAGER.CRUISE DIRECTOR Work Phone: [facility] 11-22-2023 12:57-0400 Systolic blood pressure 138 mm[Hg] Brian Paige TELEHEALTH CASE MANAGER.CRUISE DIRECTOR Work Phone: [facility] 11-22-2023 12:56-0400 Body mass index (BMI) [Ratio] 26.83 kg/m2 Brian Paige TELEHEALTH CASE MANAGER.CRUISE DIRECTOR Work Phone: [facility] 11-22-2023 12:56-0400 Body weight 77.7 kg Brian Paige TELEHEALTH CASE MANAGER.CRUISE DIRECTOR Work Phone: [facility] 11-22-2023 12:56-0400 Heart rate 96 /min Brian Paige TELEHEALTH CASE MANAGER.CRUISE DIRECTOR Work Phone: [facility] 11-22-2023 12:56-0400 SaO2% (BldA) [Mass fraction] 99 % Brian Paige TELEHEALTH CASE MANAGER.CRUISE DIRECTOR Work Phone: [facility] 2023 14:30-0400 Diastolic blood pressure 79 mm[Hg] Brian Paige TELEHEALTH CASE MANAGER.CRUISE DIRECTOR Work Phone: [facility] 2023 14:30-0400 Systolic blood pressure 125 mm[Hg] Brian Paige TELEHEALTH CASE MANAGER.CRUISE DIRECTOR Work Phone: [facility] 2023 14:27-0400 Body mass index (BMI) [Ratio] 26.76 kg/m2 Brian Paige TELEHEALTH CASE MANAGER.CRUISE DIRECTOR Work Phone: [facility] 2023 14:27-0400 Body weight 77.5 kg Brian Paige TELEHEALTH CASE MANAGER.CRUISE DIRECTOR Work Phone: [facility] 2023 14:27-0400 Heart rate 103 /min Brian Duvallr TELEHEALTH CASE MANAGER.CRUISE DIRECTOR Work Phone: [facility] 2023 14:27-0400 SaO2% (BldA) [Mass fraction] 97 % Brian Gibson TELEHEALTH CASE MANAGER.CRUISE DIRECTOR Work Phone: [facility] 09-20-2023 13:55-0400 Body mass index (BMI) [Ratio] 26.97 kg/m2 Carmella Mayfield APRN.CRUISE DIRECTOR Work Phone: [facility] 09-20-2023 13:55-0400 Body temperature 98.71 [degF] Carmella Mayfield APRN.CRUISE DIRECTOR Work Phone: [facility] 09-20-2023 13:55-0400 Body weight 78.1 kg Carmella Mayfield APRN.CRUISE DIRECTOR Work Phone: [facility] 09-20-2023 13:55-0400 Diastolic blood pressure 84 mm[Hg] Carmella Mayfield APRN.CRUISE DIRECTOR Work Phone: [facility] 09-20-2023 13:55-0400 Heart rate 102 /min Carmella Mayfield APRN.CRUISE DIRECTOR Work Phone: [facility] 09-20-2023 13:55-0400 Respiratory rate 16 /min Carmella Mayfield APRN.CRUISE DIRECTOR Work Phone: [facility] 09-20-2023 13:55-0400 SaO2% (BldA) [Mass fraction] 95 % Carmella Mayfield APRN.CRUISE DIRECTOR Work Phone: [facility] 09-20-2023 13:55-0400 Systolic blood pressure 146 mm[Hg] Carmella Mayfield APRN.CRUISE DIRECTOR Work Phone: [facility] 08-24-2023 11:30-0400 Body mass index (BMI) [Ratio] 26.78 kg/m2 Claudine Calderon PA-C Work Phone: [facility] 08-24-2023 11:30-0400 Body weight 77.56 kg Claudine Wildeer PA-C Work Phone: [facility] 08-24-2023 11:30-0400 Diastolic blood pressure 98 mm[Hg] Claudine Wildeer PA-C Work Phone: [facility] 08-24-2023 11:30-0400 Heart rate 90 /min Claudine Wildeer PA-C Work Phone: [facility] 08-24-2023 11:30-0400 Respiratory rate 18 /min Claudine Wildeer PA-C Work Phone: [facility] 08-24-2023 11:30-0400 SaO2% (BldA) [Mass fraction] 93 % Claudine Wildeer PA-C Work Phone: [facility] 08-24-2023 11:30-0400 Systolic blood pressure 156 mm[Hg] Claudine Wildeer PA-C Work Phone: [facility] 08-10-2023 11:03-0400 Body mass index (BMI) [Ratio] 26.83 kg/m2 Carmella Mayfield APRN.CRUISE DIRECTOR Work Phone: [facility] 08-10-2023 11:03-0400 Body temperature 97.81 [degF] Carmella Mayfield APRN.CRUISE DIRECTOR Work Phone: [facility] 08-10-2023 11:03-0400 Body weight 77.7 kg Carmella Mayfield APRN.CRUISE DIRECTOR Work Phone: [facility] 08-10-2023 11:03-0400 Diastolic blood pressure 80 mm[Hg] Carmella Mayfield APRN.CRUISE DIRECTOR Work Phone: [facility] 08-10-2023 11:03-0400 Heart rate 96 /min Carmella Mayfield APRN.CRUISE DIRECTOR Work Phone: [facility] 08-10-2023 11:03-0400 Respiratory rate 16 /min Carmella Mayfield APRN.CRUISE DIRECTOR Work Phone: [facility] 08-10-2023 11:03-0400 SaO2% (BldA) [Mass fraction] 97 % Carmella Mayfield TELEHEALTH CASE MANAGER.CRUISE DIRECTOR Work Phone: [facility] 08-10-2023 11:03-0400 Systolic blood pressure 132 mm[Hg] Carmella Mayfield TELEHEALTH CASE MANAGER.CRUISE DIRECTOR Work Phone: [facility] 07-12-2023 16:47-0400 Body temperature 97.88 [degF] DR EMANUEL FINNEY MD [facility] 07-12-2023 16:47-0400 Body weight 77.[address] EMANUEL FINNEY MD [facility] 07-12-2023 16:47-0400 Diastolic Blood Pressure Non-Invasive 106 mm[Hg] DR EMANUEL FINNEY MD [facility] 07-12-2023 16:47-0400 Heart rate 106 /min DR EMANUEL FINNEY MD [facility] 07-12-2023 16:47-0400 Respiratory rate 16 /min DR EMANUEL FINNEY MD [facility] 07-12-2023 16:47-0400 Systolic Blood Pressure Non-Invasive 139 mm[Hg] DR EMANUEL FINNEY MD [facility] 06-15-2023 08:03-0400 Diastolic blood pressure 108 mm[Hg] Brian Paige TELEHEALTH CASE MANAGER.CRUISE DIRECTOR Work Phone: [facility] 06-15-2023 08:03-0400 Systolic blood pressure 144 mm[Hg] Brian Paige TELEHEALTH CASE MANAGER.CRUISE DIRECTOR Work Phone: [facility] 06-15-2023 07:59-0400 Body height 170.2 cm Brian Paige TELEHEALTH CASE MANAGER.CRUISE DIRECTOR Work Phone: [facility] 06-15-2023 07:59-0400 Body mass index (BMI) [Ratio] 25.84 kg/m2 Brian Paige TELEHEALTH CASE MANAGER.CRUISE DIRECTOR Work Phone: [facility] 06-15-2023 07:59-0400 Body weight 74.84 kg Brian Paige TELEHEALTH CASE MANAGER.CRUISE DIRECTOR Work Phone: [facility] 06-15-2023 07:59-0400 Heart rate 92 /min Brina Paige TELEHEALTH CASE MANAGER.CRUISE DIRECTOR Work Phone: [facility] 06-15-2023 07:59-0400 SaO2% (BldA) [Mass fraction] 99 % Brian Paige TELEHEALTH CASE MANAGER.CRUISE DIRECTOR Work Phone: [facility] 05-01-2023 21:15-0400 Body temperature 96.8 [degF] AMERICO DAVIS MD [facility] 05-01-2023 21:15-0400 Diastolic Blood Pressure Non-Invasive 110 mm[Hg] AMERICO DAVIS MD [facility] 05-01-2023 21:15-0400 Heart rate 100 /min AMERICO DAVIS MD [facility] 05-01-2023 21:15-0400 Respiratory rate 20 /min AMERICO DAVIS MD [facility] 05-01-2023 21:15-0400 Systolic Blood Pressure Non-Invasive 169 mm[Hg] AMERICO DAVIS MD [facility] 01-19-2023 10:56-0500 Body temperature 97.59 [degF] Roberto Espinoza APRN.CRUISE DIRECTOR Work Phone: [facility] 01-19-2023 10:56-0500 Body weight 73.48 kg Roberto Espinoza APRN.CRUISE DIRECTOR Work Phone: [facility] 12-12-2023 10:56-0500 Diastolic blood pressure 70 mm[Hg] Roberto Alexis TELEHEALTH CASE MANAGER.CRUISE DIRECTOR Work Phone: [facility] 01-19-2023 10:56-0500 Heart rate 88 /min Roberto Alexis TELEHEALTH CASE MANAGER.CRUISE DIRECTOR Work Phone: [facility] 01-19-2023 10:56-0500 Respiratory rate 16 /min Roberto Espinoza TELEHEALTH CASE MANAGER.CRUISE DIRECTOR Work Phone: [facility] 01-19-2023 10:56-0500 SaO2% (BldA) [Mass fraction] 98 % Roberto Alexis TELEHEALTH CASE MANAGER.CRUISE DIRECTOR Work Phone: [facility] 01-19-2023 10:56-0500 Systolic blood pressure 118 mm[Hg] Roberto Alexis TELEHEALTH CASE MANAGER.CRUISE DIRECTOR Work Phone: [facility] 07-15-2022 10:39-0400 Body weight 73.48 kg Brian Paige TELEHEALTH CASE MANAGER.CRUISE DIRECTOR Work Phone: [facility] 07-15-2022 10:39-0400 Diastolic blood pressure 90 mm[Hg] Brian Paige TELEHEALTH CASE MANAGER.CRUISE DIRECTOR Work Phone: [facility] 07-15-2022 10:39-0400 Heart rate 88 /min Brian Paige TELEHEALTH CASE MANAGER.CRUISE DIRECTOR Work Phone: [facility] 07-15-2022 10:39-0400 SaO2% (BldA) [Mass fraction] 98 % Brian Paige TELEHEALTH CASE MANAGER.CRUISE DIRECTOR Work Phone: [facility] 07-15-2022 10:39-0400 Systolic blood pressure 130 mm[Hg] Brian Paige TELEHEALTH CASE MANAGER.CRUISE DIRECTOR Work Phone: [facility] 07-14-2022 09:18-0400 Body temperature 97.2 [degF] Hayden Conner TELEHEALTH CASE MANAGER.CRUISE DIRECTOR Work Phone: [facility] 07-14-2022 09:18-0400 Body weight 73.48 kg Hayden Conner TELEHEALTH CASE MANAGER.CRUISE DIRECTOR Work Phone: [facility] 07-14-2022 09:18-0400 Diastolic blood pressure 98 mm[Hg] Hayden Pendlebury TELEHEALTH CASE MANAGER.CRUISE DIRECTOR Work Phone: [facility] 07-14-2022 09:18-0400 Heart rate 78 /min Hayden Pendlebury TELEHEALTH CASE MANAGER.CRUISE DIRECTOR Work Phone: [facility] 07-14-2022 09:18-0400 Respiratory rate 16 /min [facility] TELE[facility]ALTH CASE MANAGER.CRUISE DIRECTOR Work Phone: [facility] 07-14-2022 09:18-0400 SaO2% (BldA) [Mass fraction] 95 % Hayden Pendlebury TELEHEALTH CASE MANAGER.CRUISE DIRECTOR Work Phone: [facility] 07-14-2022 09:18-0400 Systolic blood pressure 148 mm[Hg] Hayden Pendlebury TELEHEALTH CASE MANAGER.CRUISE DIRECTOR Work Phone: [facility] 04-28-2022 09:13-0400 Body height 180.3 cm Aleta Shepard MD Work Phone: [facility] 04-28-2022 09:13-0400 Body temperature 98.01 [degF] Aleta Shepard MD Work Phone: [facility] 04-28-2022 09:13-0400 Body weight 77.38 kg Aleta Shepard MD Work Phone: [facility] 04-28-2022 09:13-0400 Diastolic blood pressure 84 mm[Hg] Aleta Shepard MD Work Phone: [facility] 04-28-2022 09:13-0400 Heart rate 96 /min Aleta Shepard MD Work Phone: [facility] 04-28-2022 09:13-0400 SaO2% (BldA) [Mass fraction] 96 % Aleta Shepard MD Work Phone: [facility] 04-28-2022 09:13-0400 Systolic blood pressure 126 mm[Hg] Aleta Shepard MD Work Phone: [facility] 04-20-2022 11:21-0400 Diastolic blood pressure 98 mm[Hg] Brian Gibson TELEHEALTH CASE MANAGER.CRUISE DIRECTOR Work Phone: [facility] 04-20-2022 11:21-0400 Systolic blood pressure 130 mm[Hg] Brian Paige TELEHEALTH CASE MANAGER.CRUISE DIRECTOR Work Phone: [facility] 04-20-2022 11:20-0400 Body weight 74.84 kg Brian Paige TELEHEALTH CASE MANAGER.CRUISE DIRECTOR Work Phone: [facility] 04-20-2022 11:20-0400 Heart rate 86 /min Brian Paige TELEHEALTH CASE MANAGER.CRUISE DIRECTOR Work Phone: [facility] 04-20-2022 11:20-0400 SaO2% (BldA) [Mass fraction] 97 % Brian Paige TELEHEALTH CASE MANAGER.CRUISE DIRECTOR Work Phone: [facility] 04-07-2022 10:21-0500 Body temperature 97.5 [degF] Roberto Alexis TELEHEALTH CASE MANAGER.CRUISE DIRECTOR Work Phone: [facility] 04-07-2022 10:21-0500 Body weight 76.84 kg Roberto Alexis TELEHEALTH CASE MANAGER.CRUISE DIRECTOR Work Phone: [facility] 04-07-2022 10:21-0500 Diastolic blood pressure 86 mm[Hg] Roberto Alexis TELEHEALTH CASE MANAGER.CRUISE DIRECTOR Work Phone: [facility] 04-07-2022 10:21-0500 Heart rate 98 /min Roberto Alexis TELEHEALTH CASE MANAGER.CRUISE DIRECTOR Work Phone: [facility] 04-07-2022 10:21-0500 Respiratory rate 16 /min Roberto Alexis TELEHEALTH CASE MANAGER.CRUISE DIRECTOR Work Phone: [facility] 04-07-2022 10:21-0500 SaO2% (BldA) [Mass fraction] 98 % Roberto Alexis TELEHEALTH CASE MANAGER.CRUISE DIRECTOR Work Phone: [facility] 04-07-2022 10:21-0500 Systolic blood pressure 142 mm[Hg] Roberto Alexis TELEHEALTH CASE MANAGER.CRUISE DIRECTOR Work Phone: [facility] 04-01-2022 07:34-0500 Diastolic blood pressure 90 mm[Hg] Brian Paige TELEHEALTH CASE MANAGER.CRUISE DIRECTOR Work Phone: [facility] 04-01-2022 07:34-0500 Systolic blood pressure 134 mm[Hg] Brian Paige TELEHEALTH CASE MANAGER.CRUISE DIRECTOR Work Phone: [facility] 04-01-2022 07:33-0500 Body weight 74.39 kg Brian Paige TELEHEALTH CASE MANAGER.CRUISE DIRECTOR Work Phone: [facility] 04-01-2022 07:33-0500 Heart rate 80 /min Brian Paige TELEHEALTH CASE MANAGER.CRUISE DIRECTOR Work Phone: [facility] 04-01-2022 07:33-0500 SaO2% (BldA) [Mass fraction] 98 % Brian Paige TELEHEALTH CASE MANAGER.CRUISE DIRECTOR Work Phone: [facility] 03-31-2022 08:50-0500 Body temperature 97.59 [degF] Claudine Wildeer PA-C Work Phone: [facility] 03-31-2022 08:50-0500 Body weight 74.39 kg Claudine Wildeer PA-C Work Phone: [facility] 03-31-2022 08:50-0500 Diastolic blood pressure 95 mm[Hg] Claudine Wildeer PA-C Work Phone: [facility] 03-31-2022 08:50-0500 Heart rate 99 /min Claudine Queener PA-C Work Phone: [facility] 03-31-2022 08:50-0500 Respiratory rate 16 /min Claudine Wildeer PA-C Work Phone: [facility] 03-31-2022 08:50-0500 SaO2% (BldA) [Mass fraction] 96 % Claudine Queener PA-C Work Phone: [facility] 03-31-2022 08:50-0500 Systolic blood pressure 148 mm[Hg] Claudine Queener PA-C Work Phone: [facility] 03-23-2022 08:31-0500 Body temperature 96.49 [degF] Dianna Thompson PA-C Work Phone: [facility] 03-23-2022 08:31-0500 Body weight 76.84 kg Dianna Athy PA-C Work Phone: [facility] 03-23-2022 08:31-0500 Diastolic blood pressure 90 mm[Hg] Dianna Athy PA-C Work Phone: [facility] 03-23-2022 08:31-0500 Heart rate 83 /min Dianna Athy PA-C Work Phone: [facility] 03-23-2022 08:31-0500 Respiratory rate 18 /min Dianna Athy PA-C Work Phone: [facility] 03-23-2022 08:31-0500 SaO2% (BldA) [Mass fraction] 98 % Dianna Athy PA-C Work Phone: [facility] 03-23-2022 08:31-0500 Systolic blood pressure 140 mm[Hg] Dianna Athy PA-C Work Phone: [facility] 03-05-2022 11:47-0500 Body temperature 98 [degF] [facility] Work Phone: [facility] 03-05-2022 11:47-0500 Diastolic blood pressure 97 mm[Hg] [facility] Work Phone: [facility] 03-05-2022 11:47-0500 Heart rate 78 /min [facility] Work Phone: [facility] 03-05-2022 11:47-0500 Respiratory rate 14 /min [facility] Work Phone: [facility] 03-05-2022 11:47-0500 SaO2% (BldA) [Mass fraction] 97 % [facility] Work Phone: [facility] 03-05-2022 11:47-0500 Systolic blood pressure 137 mm[Hg] [facility] Work Phone: [facility] 03-05-2022 06:00-0500 Body weight 72.8 kg [facility] Work Phone: 6(009)800-710376 [place] [address] 03-05-2022 05:41-0500 Body height 180.34 cm [facility] Work Phone: 8(082)350-564576 [place] [address] 03-05-2022 05:41-0500 Body mass index (BMI) [Ratio] 22.4 kg/m2 [facility] Work Phone: 2(852)320-574276 [place] [address] 03-05-2022 04:55-0500 Body temperature 97.6 [degF] [facility] Work Phone: 0(399)323-679576 [place] [address] 03-05-2022 04:55-0500 Diastolic blood pressure 99 mm[Hg] [facility] Work Phone: 8(987)075-487476 [place] [address] 03-05-2022 04:55-0500 Heart rate 78 /min [facility] Work Phone: 4(015)726-760876 [place] [address] 03-05-2022 04:55-0500 Respiratory rate 13 /min [facility] Work Phone: 5(729)083-326976 [place] [address] 03-05-2022 04:55-0500 SaO2% (BldA) [Mass fraction] 96 % [facility] Work Phone: 6(877)927-161376 [place] [address] 03-05-2022 04:55-0500 Systolic blood pressure 143 mm[Hg] [facility] Work Phone: 5(926)185-076576 [place] [address] 03-05-2022 04:01-0500 Body height 180.34 cm [facility] Work Phone: 1(598)641-723076 [place] [address] 03-05-2022 04:01-0500 Body mass index (BMI) [Ratio] 23.1 kg/m2 [facility] Work Phone: 1(215)956-907076 [place] [address] 03-05-2022 04:01-0500 Body weight 75.34 kg [facility] Work Phone: 0(150)079-459176 [place] [address] 03-03-2022 07:14-0500 Diastolic blood pressure 98 mm[Hg] Brian Gibson TELEHEALTH CASE MANAGER.CRUISE DIRECTOR Work Phone: [facility] 03-03-2022 07:14-0500 Systolic blood pressure 138 mm[Hg] Brian Gibson TELEHEALTH CASE MANAGER.CRUISE DIRECTOR Work Phone: [facility] 03-03-2022 07:12-0500 Body height 174 cm Brian Paige TELEHEALTH CASE MANAGER.CRUISE DIRECTOR Work Phone: [facility] 03-03-2022 07:12-0500 Body weight 71.67 kg Brian Paige TELEHEALTH CASE MANAGER.CRUISE DIRECTOR Work Phone: [facility] 03-03-2022 07:12-0500 Heart rate 98 /min Brian Paige TELEHEALTH CASE MANAGER.CRUISE DIRECTOR Work Phone: [facility] 03-03-2022 07:12-0500 SaO2% (BldA) [Mass fraction] 98 % Brian Paige TELEHEALTH CASE MANAGER.[facility] Work Phone: [facility] 12-20-2021 11:45-0500 Body temperature 97.11 [degF] Xenia Praisler-Wood TELEHEALTH CASE MANAGER.[facility] Work Phone: [facility] 12-20-2021 11:45-0500 Body weight 74.12 kg Xenia Praisler-Wood TELEHEALTH CASE MANAGER.CRUISE DIRECTOR Work Phone: [facility] 12-20-2021 11:45-0500 Diastolic blood pressure 92 mm[Hg] Xenia Praisler-Wood TELEHEALTH CASE MANAGER.[facility] Work Phone: [facility] 12-20-2021 11:45-0500 Heart rate 110 /min Xenia Praisler-Wood TELEHEALTH CASE MANAGER.CRUISE DIRECTOR Work Phone: [facility] 12-20-2021 11:45-0500 Respiratory rate 18 /min Xenia Praisler-Wood TELEHEALTH CASE MANAGER.CRUISE DIRECTOR Work Phone: [facility] 12-20-2021 11:45-0500 SaO2% (BldA) [Mass fraction] 96 % Xenia Praisler-Wood TELEHEALTH CASE MANAGER.CRUISE DIRECTOR Work Phone: [facility] 12-20-2021 11:45-0500 Systolic blood pressure 132 mm[Hg] Xenia Praisler-Wood TELEHEALTH CASE MANAGER.[facility] Work Phone: [facility] 11-24-2021 13:11-0400 Body mass index (BMI) [Ratio] 22.3 kg/m2 [facility] Work Phone: [facility] 11-24-2021 [id number] Body weight 72.57 kg [facility] Work Phone: [facility] 07-05-2021 02:32-0400 Diastolic blood pressure 74 mm[Hg] [facility] Work Phone: 07-05-2021 02:32-0400 Heart rate 80 /min [facility] Work Phone: 07-05-2021 02:32-0400 Respiratory rate 18 /min [facility] Work Phone: 07-05-2021 02:32-0400 SaO2% (BldA) [Mass fraction] 98 % [facility] Work Phone: 07-05-2021 02:32-0400 Systolic blood pressure 144 mm[Hg] [facility] Work Phone: 07-05-2021 01:15-0400 Body height 180.34 cm [facility] Work Phone: 07-05-2021 01:15-0400 Body mass index (BMI) [Ratio] 23.1 kg/m2 [facility] Work Phone: 07-05-2021 01:15-0400 Body temperature 97.8 [degF] [facility] Work Phone: 07-05-2021 01:15-0400 Body weight 75.43 kg [facility] Work Phone: Encounters Encounter Date Encounter Type Care Provider Facility Start: 11-06-2024 ambulatory [place]ia [place] Start: 10-24-2024 ambulatory Harsha DAVENPORT Facil ity:[facility] Start: 10-24-2024 End: 10-24-2024 Patient encounter procedure [facility] Work Phone: Start: 10-24-2024 End: 10-24-2024 ambulatory Brian Paige LAW EXAMINER-C Work Phone: [facility] Start: 10-19-2024 End: 10-19-2024 Patient encounter procedure Brando Tin PA [facility] Work Phone: Start: 10-19-2024 End: 10-19-2024 ambulatory Brian Paige LAW EXAMINER-C Work Phone: [facility] Start: 08-21-2024 End: 08-21-2024 Patient encounter procedure Harsha Dawson PA [facility] Work Phone: Start: 08-21-2024 End: 08-21-2024 ambulatory Brian Paige LAW EXAMINER-C Work Phone: [facility] Start: 06-21-2024 End: 06-21-2024 Emergency department patient visit Brian Paige LAW EXAMINER-C Work Phone: -Emergency Department Work Phone: Start: 03-09-2024 End: 03-09-2024 Telephone encounter Brian Duvallr TELEHEALTH CASE MANAGER.CRUISE DIRECTOR Work Phone: [facility] [place] Comment on above: Opened In Error Start: 01-26-2024 End: 01-26-2024 Telephone encounter Brian Paige TELEHEALTH CASE MANAGER.CRUISE DIRECTOR Work Phone: [facility] [place] Comment on above: Release Of Medical R ecords Start: 01-25-2024 End: 01-25-2024 Telephone encounter Neurology Provider Neurology Start: 01-15-2024 End: 01-17-2024 Refill Brian Paige TELEHEALTH CASE MANAGER.CRUISE DIRECTOR Work Phone: [facility] [place] Comment on above: Refill Request Start: 01-13-2024 End: 01-13-2024 Office outpatient visit 25 minutes Db Vences APRN.[employer] Work Phone: [facility] [place] Comment on above: Acute pancreatitis, unspecified complication status, unspecified pancreatitis type (Primary Dx); Urinary tract infection without hematuria, site unspecified; Encounter for immunization; Type 2 diabetes mellitus with diabetic polyneuropathy, without long-term current use of insulin (HCC); Screening for diabetic retinopathy Start: 01-13-2024 End: 01-13-2024 ambulatory [facility] Facility:[facility] Start: 01-02-2024 End: 01-02-2024 Emergency department patient visit Ba Solis Facility:[facility] Start: 01-02-2024 End: 01-02-2024 ambulatory [facility] Facility:[facility] Start: 01-02-2024 End: 01-02-2024 Patient encounter procedure Beba Cook TELEHEALTH CASE MANAGER.CRUISE DIRECTOR Work Phone: [facility] Comment on above: Lower abdominal pain (Primary Dx) Start: 12-28-2023 Emergency department patient visit [facility] Facility:[facility] Start: 12-24-2023 End: 12-24-2023 ambulatory [facility] Facility:[facility] Start: 12-24-2023 End: 12-24-2023 Patient encounter procedure Brian Gibson TELEHEALTH CASE MANAGER.CRUISE DIRECTOR Work Phone: [facility] [place] Comment on above: Type 2 diabetes alberto itus with diabetic polyneuropathy, without long-term current use of insulin (HCC) (Primary Dx); Glucosuria; MICA (obstructive sleep apnea); Primary hypertension; Bilateral foot pain; Hearing impaired person, bilateral; Anxiety and depression; Memory difficulties Start: 12-21-2023 End: 12-21-2023 [facility] Facility:[facility] Start: 12-21-2023 End: 12-21-2023 Office outpatient visit 25 minutes Hayden Conner APRN.CRUISE DIRECTOR Work Phone: [facility] Comment on above: Pain with urination (Primary Dx); Glucose found in urine on examination Start: 12-21-2023 End: 12-21-2023 Telephone encounter Brian Gibson TELEHEALTH CASE MANAGER.CRUISE DIRECTOR Work Phone: [facility] [place] Comment on above: Patient Question Start: 12-18-2023 Encounter for genera l adult medical examination without abnormal findings Brian Gibson NP [facility] Start: 12-10-2023 End: 12-10-2023 [facility] Facility:[facility] Start: 12-07-2023 End: 12-07-2023 ambulatory [facility] Facility:[facility] Start: 12-07-2023 End: 12-07-2023 Patient encounter procedure Claudine Calderon PA-C Work Phone: Neurology Comment on above: MICA (obstructive sle ep apnea) (Primary Dx); Memory loss; Hearing difficulty of both ears; Mild cognitive impairment; Anxiety Start: 12-02-2023 End: 12-03-2023 ambulatory BRIAN PAIGE Facility:[facility] Start: 11-26-2023 End: 11-26-2023 ambulatory Brian Paige LAW EXAMINER Facility:[facility] Start: 11-23-2023 End: 12-03-2023 Telephone encounter Brian Paige TELEHEALTH CASE MANAGER.CRUISE DIRECTOR Work Phone: [facility] [place] Comment on above: Forms Start: 11-23-2023 End: 11-23-2023 ambulatory BRIAN PAIGE Facility:[facility] Start: 11-23-2023 End: 11-23-2023 Subsequent hospital visit by physician Dianna [facility] [place] Work Phone: Radiology Comment on above: Bilateral foot pain [M79.671, M79.672] Start: 11-22-2023 End: 11-22-2023 Subsequent hospital visit by physician Dianna [facility] Work Phone: Radiology Start: 11-22-2023 End: 11-22-2023 Patient encounter procedure Brian Paige TELEHEALTH CASE MANAGER.CRUISE DIRECTOR Work Phone: [facility] [place] Comment on above: MICA (obstructive sle ep apnea) (Primary Dx); Chronic fatigue; Primary hypertension; Tobacco use; Mild cognitive impairment; Bilateral foot pain; Vitamin D deficiency; Encounter for immunization; Encounter for screening examination for other mental health and behavioral disorders; Hearing impaired person, bilateral Start: 11-22-2023 End: 11-22-2023 ambulatory BRIAN PAIGE Facility:[facility] Start: 11-15-2023 End: 11-15-2023 ambulatory Brian Paige LAW EXAMINER Facility:[facility] Start: 10-30-2023 End: 10-30-2023 Emergency department patient visit BRIAN PAIGE Facility:[facility] Start: 10-21-2023 End: 10-22-2023 Telephone encounter Brian Paige TELEHEALTH CASE MANAGER.CRUISE DIRECTOR Work Phone: Internal Medicine [place] Comment on above: note for child suppo rt Start: 2023 End: 2023 Patient encounter procedure Brian Gibson TELEHEALTH CASE MANAGER.CRUISE DIRECTOR Work Phone: Internal Medicine [place] Comment on above: MICA (obstructive sle ep apnea) (Primary Dx); Chronic fatigue; Primary hypertension; Tobacco use; Memory difficulties; Mild cognitive impairment; Hearing impaired person, bilateral Start: 2023 End: 2023 [facility] Facility:[facility] Start: 2023 End: 11-02-2023 Telephone encounter Brian Gibson TELEHEALTH CASE MANAGER.CRUISE DIRECTOR Work Phone: Internal Medicine [place] Comment on above: Request Outside [facility] Records Start: 09-20-2023 End: 09-20-2023 [facility] Facility:[facility] Start: 09-20-2023 End: 09-20-2023 Patient encounter procedure Carmella Mayfield APRN.CRUISE DIRECTOR Work Phone: [facility] Comment on above: Puncture wound (Prim kit Dx) Start: 08-24-2023 End: 08-24-2023 Patient encounter procedure Claudine Calderon PA-C Work Phone: Neurology Comment on above: Memory loss (Primary Dx); Hearing difficulty of both ears; Snoring; Mild cognitive impairment Start: 08-24-2023 End: 08-24-2023 [facility] Facility:[facility] Start: 08-10-2023 End: 08-10-2023 [facility] Start: 08-10-2023 End: 08-10-2023 Patient encounter procedure Carmella Mayfield APRN.CRUISE DIRECTOR Work Phone: [facility] Comment on above: Urinary frequency (P rimary Dx); Rectal pain Start: 08-02-2023 End: 08-02-2023 ambulatory Therese Leroy PA-C Work Phone: Gastroenterology Comment on above: Colon cancer screeni ng (Primary Dx) Start: 08-02-2023 End: 08-02-2023 Telemedicine consultation with patient Therese Leroy ISSACBrando Work Phone: Gastroenterology Start: 07-12-2023 End: 07-12-2023 Emergency department patient visit DR EMANUEL FINNEY MD [facility] Start: 07-12-2023 Telephone encounter Jolene caban MD Work Phone: Internal Medicine [place] Comment on above: Appointment; Patient Update Start: 07-07-2023 Admission to [facility] Leta Arechiga MD Work Phone: Ambulatory Surgery Start: 07-07-2023 ambulatory Leta Arechiga MD Work Phone: Ambulatory Surgery Start: 06-28-2023 Refill Brian Paige TELEHEALTH CASE MANAGER.CRUISE DIRECTOR Work Phone: Internal Medicine [place] Comment on above: colon prep Start: 06-21-2023 End: 06-21-2023 ambulatory JOSEPH WILDA TELEHEALTH CASE MANAGER-CRUISE DIRECTOR Facility:[facility] Start: 06-21-2023 End: 06-21-2023 Patient encounter procedure JOSEPH WILDA TELEHEALTH CASE MANAGER-CRUISE DIRECTOR [facility] Start: 06-18-2023 Telephone encounter Brian Cleav er TELEHEALTH CASE MANAGER.CRUISE DIRECTOR Work Phone: Internal Medicine [place] Comment on above: Orders Start: 06-15-2023 End: 06-15-2023 ambulatory BRIAN PAIGE Facility:[facility] Start: 06-15-2023 End: 06-15-2023 Patient encounter procedure Brian Paige TELEHEALTH CASE MANAGER.CRUISE DIRECTOR Work Phone: Internal Medicine [place] Comment on above: MICA (obstructive sle ep apnea) (Primary Dx); Primary hypertension; Hypercholesterolemia; Tobacco use; Vitamin D deficiency; Lower abdominal pain; Gallbladder polyp; Hepatic steatosis Start: 06-12-2023 End: 06-12-2023 ambulatory BRIAN PAIGE Facility:[facility] Start: 06-01-2023 Telephone encounter Brian Cleav er TELEHEALTH CASE MANAGER.CRUISE DIRECTOR Work Phone: Internal Medicine [place] Comment on above: Lab Orders Start: 05-01-2023 End: 05-01-2023 Emergency department patient visit AMERICO DAVIS MD [facility] Start: 04-20-2023 Telephone encounter Brian Cleav er TELEHEALTH CASE MANAGER.CRUISE DIRECTOR Work Phone: Internal Medicine [place] Comment on above: bowel prep Start: 04-06-2023 End: 04-06-2023 ambulatory JOSEPH WILDA TELEHEALTH CASE MANAGER-CRUISE DIRECTOR Facility:[facility] Start: 04-06-2023 End: 04-06-2023 Patient encounter procedure JOSEPH ASTUDILLO TELEHEALTH CASE MANAGER-CRUISE DIRECTOR [facility] Start: 03-23-2023 End: 03-23-2023 ambulatory BRIAN PAIGE Facility:[facility] Start: 03-01-2023 End: 03-01-2023 ambulatory BRIAN PAIGE Facility:[facility] Start: 01-19-2023 End: 01-19-2023 Patient encounter procedure Roberto Espinoza TELEHEALTH CASE MANAGER.CRUISE DIRECTOR Work Phone: [facility] Comment on above: Pelvic pain (Primary Dx) Start: 12-22-2022 ambulatory Brian Duvallr TELEHEALTH CASE MANAGER.CRUISE DIRECTOR Work Phone: [facility] Start: 07-15-2022 End: 07-15-2022 Patient encounter procedure Brian Paige TELEHEALTH CASE MANAGER.CRUISE DIRECTOR Work Phone: Internal Medicine [place] Comment on above: Other non-recurrent acute nonsuppurative otitis media, unspecified laterality (Primary Dx) Start: 07-14-2022 End: 07-14-2022 Office outpatient visit 25 minutes Hayden Conner TELEHEALTH CASE MANAGER.CRUISE DIRECTOR Work Phone: [facility] Comment on above: Acute otitis media, right (Primary Dx) Start: 05-22-2022 End: 05-22-2022 Patient encounter procedure Hay Rader MD Work Phone: Internal Medicine [place] Comment on above: Urinary tract infect ion with hematuria, site unspecified (Primary Dx); Glucosuria; Hyperglycemia; Hypercholesterolemia Start: 04-28-2022 End: 04-28-2022 Patient encounter procedure Aleta Shepard MD Work Phone: General Surgery Comment on above: History of colonic p olyps; Ventral hernia without obstruction or gangrene; Gastroesophageal reflux disease with esophagitis without hemorrhage Start: 04-27-2022 Telephone encounter Brian darnell APRN.CRUISE DIRECTOR Work Phone: Internal Medicine [place] Comment on above: Results Start: 04-20-2022 End: 04-20-2022 Patient encounter procedure Brian Gibson APRN.CRUISE DIRECTOR Work Phone: Internal Medicine [place] Comment on above: Primary hypertension (Primary Dx); Renal cyst, acquired, left; Ventral hernia without obstruction or gangrene Start: 04-15-2022 [facility] Work Phone: Neurology Start: 04-13-2022 ambulatory Brian Gibson APRN.CRUISE DIRECTOR Work Phone: Internal Medicine [place] Comment on above: Results Start: 04-13-2022 E-mail encounter addison m caregiver Brian Gibson APRN.CRUISE DIRECTOR Work Phone: [facility] Start: 04-07-2022 End: 04-07-2022 Patient encounter procedure Roberto Espinoza APRN.CNP Work Phone: [place] [facility] Comment on above: ETD (Eustachian tube dysfunction), left (Primary Dx) Start: 04-01-2022 Telephone encounter Marizol Butler LPN Gastroenterology Comment on above: Appointment Start: 04-01-2022 End: 04-01-2022 Patient encounter procedure Brian Gibson APRN.CRUISE DIRECTOR Work Phone: Internal Medicine [place] Comment on above: Moderate episode of recurrent major depressive disorder (HCC) (Primary Dx); Memory difficulties; Tobacco use; Sleep apnea, unspecified type; Ventral hernia without obstruction or gangrene; Multiple renal cysts; Primary hypertension; Herpes zoster without complication; Epidermoid cyst of skin of scalp Start: 03-31-2022 End: 03-31-2022 Patient encounter procedure Claudine Calderon PA-C Work Phone: Neurology Comment on above: Mild cognitive impai rment (Primary Dx); Hearing difficulty of both ears; Snoring; Memory loss; Dementia without behavioral disturbance (HCC) Start: 03-23-2022 End: 03-23-2022 Patient encounter procedure Dianna R Jay JO Work Phone: [facility] Comment on above: Rash (Primary Dx) Start: 03-09-2022 Telephone encounter Brian darnell APRN.CRUISE DIRECTOR Work Phone: Internal Medicine [place] Comment on above: Orders Start: 03-05-2022 Non-patient / Non-visit [facility] Work Phone: [facility] Start: 03-05-2022 End: 03-05-2022 Evaluation and management of inpatient [facility] Work Phone: [facility] Start: 03-05-2022 End: 03-05-2022 observation encounter [facility] Work Phone: [facility] Work Phone: Start: 03-05-2022 Non-patient / Non-visit [facility] Work Phone: [facility] Start: 03-04-2022 ambulatory Brian Gibson APRN.CRUISE DIRECTOR Work Phone: Internal Medicine [place] Comment on above: Results Start: 03-04-2022 E-mail encounter fro m caregiver Brian Gibson APRN.CRUISE DIRECTOR Work Phone: [facility] Start: 03-03-2022 End: 03-03-2022 Patient encounter procedure Brian Gibson APRN.CRUISE DIRECTOR Work Phone: Internal Medicine [place] Comment on above: Primary hypertension (Primary Dx); Memory difficulties; Tobacco use; Internal hemorrhoids; Lymphadenopathy, inguinal; Intra-abdominal and pelvic swelling, mass and lump, unspecified site; Left lower quadrant abdominal pain; Vitamin D deficiency; Screening for lipid disorders; Encounter for therapeutic drug monitoring Start: 01-08-2022 End: 01-08-2022 Patient encounter procedure Therese Leroy PA-C Work Phone: Gastroenterology Comment on above: APPOINTMENT CANCELLE D (Primary Dx) Start: 01-08-2022 End: 01-08-2022 Telemedicine consultation with patient Therese Leroy PA-C Work Phone: [facility] Start: 12-20-2021 End: 12-20-2021 Patient encounter procedure Xenia Aguilar TELEHEALTH CASE MANAGER.CRUISE DIRECTOR Work Phone: [facility] Comment on above: Suspected COVID-19 v irus infection (Primary Dx) Start: 11-24-2021 Non-patient / Non-visit [facility] Work Phone: [facility] Start: 07-05-2021 End: 07-05-2021 Emergency department patient visit [facility] Start: 05-07-2021 Telephone encounter Romie López MD Work Phone: Family Medicine [place] Comment on above: Patient Update Start: 05-13-2020 End: 05-13-2020 Subsequent hospital visit by physician [facility] Work Phone: Radiology Comment on above: Acute bilateral low back pain without sciatica [M54.5] Procedures Date Procedure Procedure Detail Performing Clinician Start: 08-21-2024 Urine culture Brian jung LAW EXAMINER-C Work Phone: Start: 01-13-2024 PFIZER-BIONTECH COVI D-19 VACCINE AGE 12+ YR (COMIRNATY) Db Vences TELEHEALTH CASE MANAGER.CHILDREN'S LUNCHROOM SUPERVISOR Work Phone: Start: 12-21-2023 Gluc bld gluc mntr d ev cleared fda spec home use [facility] Provider Start: 12-21-2023 Urnls dip stick/tabl et rgnt auto w/o microscopy Hayden Conner TELEHEALTH CASE MANAGER.CRUISE DIRECTOR Work Phone: Start: 08-10-2023 Urnls dip stick/tabl et rgnt auto w/o microscopy Carmella Mayfield TELEHEALTH CASE MANAGER.CRUISE DIRECTOR Work Phone: Start: 06-15-2023 Urnls dip stick/tabl et rgnt auto w/o microscopy Brian Gibson TELEHEALTH CASE MANAGER.CRUISE DIRECTOR Work Phone: Start: 06-12-2023 Lipid 1996 panel - S endy or Plasma Brian Gibson TELEHEALTH CASE MANAGER.CRUISE DIRECTOR Work Phone: Start: 01-19-2023 Urnls dip stick/tabl et rgnt auto w/o microscopy Roberto Espinoza TELEHEALTH CASE MANAGER.CRUISE DIRECTOR Work Phone: Start: 05-22-2022 Urnls dip stick/tabl et rgnt auto w/o microscopy Hay Rader MD Work Phone: Start: 05-22-2022 Hemoglobin A1c/Hemoglobin.total in Blood Hay Rader MD Work Phone: Start: 03-05-2022 Radionuclide imaging of perfusion of myocardium under exercise stress [facility] Work Phone: Start: 03-05-2022 Plain chest X-ray [facility] Work Phone: Start: 03-03-2022 Lipid 1996 panel - S endy or Plasma Brian Gibson TELEHEALTH CASE MANAGER.CRUISE DIRECTOR Work Phone: Start: 05-13-2020 Radex spine lumbosac ral 2/3 views Tori Rees TELEHEALTH CASE MANAGER.CRUISE DIRECTOR Work Phone: Start: 06-07-2017 Colonoscopy Romie Grijalva MD Work Phone: None (qualifier value) JOSEPH ASTUDILLO TELEHEALTH CASE MANAGER-CRUISE DIRECTOR Plan of Treatment Date Care Activity Detail Author Start: 09-04-2028 [facility] Start: 06-11-2028 Lipid panel Lipid Screening [facility] Start: 03-23-2028 Prostate specific antigen measurement Prostate Cancer Screening Discussion [facility] Start: 03-03-2027 Lipid 1996 panel - Serum or Plasma Lipid Screening [facility] Start: 03-03-2027 Lipid panel Lipid Screening [facility] Start: 03-03-2027 LIPID SCREEN LIPID SCREEN [facility] Start: 11-21-2026 Diabetes Screening Diabetes Screening [facility] Start: 08-25-2026 LIPID SCREEN LIPID SCREEN [facility] Start: 06-11-2026 Diabetes Screening Diabetes Screening [facility] Start: 05-22-2025 DIABETES SCREEN DIABETES SCREEN [facility] Start: 05-22-2025 Diabetes Screening Diabetes Screening [facility] Start: 03-03-2025 DIABETES SCREEN DIABETES SCREEN [facility] Start: 01-12-2025 Hepatitis B screening Urine Albumin:Creatinine Ratio [facility] Start: 12-23-2024 Annual PCP Team Chronic Disease Visit Annual PCP Team Chronic Disease Visit [facility] Start: 11-21-2024 Annual PCP Team Chronic Disease Visit Annual PCP Team Chronic Disease Visit [facility] Start: 11-21-2024 Anxiety Screening Anxiety Screening [facility] Start: 10-19-2024 Annual PCP Team Chronic Disease Visit Annual PCP Team Chronic Disease Visit [facility] Start: 10-19-2024 BP Controlled (<130/80) BP Controlled (<130/80) [facility] Start: 09-22-2024 DIABETES SCREEN DIABETES SCREEN [facility] Start: 06-22-2024 Hemoglobin A1c measurement HbA1C [facility] Start: 06-21-2024 [facility] Start: 06-14-2024 Annual PCP Team Chronic Disease Visit Annual PCP Team Chronic Disease Visit [facility] Start: 06-11-2024 Hepatitis B surface antibody level LDL Cholesterol [facility] Start: 05-10-2024 End: 05-10-2024 Patient encounter procedure 05/10/2024 8:00 AM EDT Office Visit Internal Medicine [address] [address] Brian Gibson APRN.CRUISE DIRECTOR [address] [place] [phone] 3 month f/u Internal Medicine [place] Comment on above: 3 month f/u Start: 04-12-2024 End: 04-12-2024 Patient encounter procedure 04/12/2024 11:40 AM EST Office Visit Internal Medicine [address] [id number] Brian Gibson TELEHEALTH CASE MANAGER.CRUISE DIRECTOR [address] [place] [address] [phone] 3 month f/u [facility] Medicine [place] Comment on above: 3 month f/u Start: 03-25-2024 End: 06-24-2024 Hemoglobin A1c in Blood HEMOGLOBIN A1C Lab Routine Type 2 diabetes mellitus with diabetic polyneuropathy, without long-term current use of insulin (HCC) Expected: 03/25/2024 (Approximate), Expires: 06/24/2024 [facility] Comment on above: Expected: 03/25/2024 (Approximate), Expi res: 06/24/2024 Start: 03-25-2024 End: 03-25-2024 ambulatory 03/25/2024 9:00 AM EST Results Only [facility] [address] [place] [address] [facility] Start: 03-20-2024 End: 03-20-2024 Patient encounter procedure 03/20/2024 9:00 AM EST Office Visit Neurology [address] [place] [address] Anna Manzo APRN.CRUISE DIRECTOR [address] [place] [address] MICA (obstructive sleep apnea) [G47.33] TE 01-24 req DME Neurology Comment on above: MICA (obstructive sleep apnea) [G47.33] T E 01-24 req DME Start: 03-13-2024 End: 03-13-2024 Patient encounter procedure 03/13/2024 9:30 AM EST Office Visit Podiatry [address] [place] [address] Andre Zhong [address] [address] Type 2 diabetes mellitus with diabetic polyneuropathy, without long-term current use of insulin (HCC) [E11.42] Podiatry Comment on above: Type 2 diabetes mellitus with diabetic p olyneuropathy, without long-term current use of insulin (HCC) [E11.42] Start: 02-23-2024 End: 02-23-2024 Patient encounter procedure 02/23/2024 8:00 AM EST Office Visit Neurology [address] [place] [address] Anna Manzo APRN.CRUISE DIRECTOR [address] [place] [address] MICA (obstructive sleep apnea) [G47.33] Neurology Comment on above: MICA (obstructive sleep apnea) [G47.33] Start: 02-17-2024 End: 02-17-2024 Patient encounter procedure 02/17/2024 9:30 AM EST Office Visit Podiatry [address] [place], [place] [id number] Andre Zhong [address] [id number] Type 2 diabetes mellitus with diabetic polyneuropathy, without long-term current use of insulin (HCC) [E11.42] Podiatry Comment on above: Type 2 diabetes mellitus with diabetic p olyneuropathy, without long-term current use of insulin (HCC) [E11.42] Start: 02-14-2024 End: 02-14-2024 Patient encounter procedure Neurology Comment on above: MICA (obstructive sleep apnea) [G47.33] EGD DIAGNOSTIC / col onoscopy Start: 02-14-2024 End: 02-14-2024 Patient encounter procedure 02/14/2024 9:30 AM EST Appointment Ambulatory Surgery [address] [place], [place] [phone] Carlos Alexander MD [address] [facility] [place] [place] [address] EGD DIAGNOSTIC / colonoscopy Ambulatory Surgery Comment on above: EGD DIAGNOSTIC / colonoscopy Start: 02-10-2024 End: 02-10-2024 Patient encounter procedure 02/10/2024 8:30 AM EST Office Visit Podiatry [address] [place], [place] [phone] Andre Zhong [address] [phone] Type 2 diabetes mellitus with diabetic polyneuropathy, without long-term current use of insulin (HCC) [E11.42] Podiatry Comment on above: Type 2 diabetes mellitus with diabetic p olyneuropathy, without long-term current use of insulin (HCC) [E11.42] Start: 02-07-2024 End: 02-07-2024 Patient encounter procedure 02/07/2024 11:30 AM EST Office Visit Podiatry [address] [place], [place] [address] Andre Zhong [address] [phone] Type 2 diabetes mellitus with diabetic polyneuropathy, without long-term current use of insulin (HCC) [E11.42] Podiatry Comment on above: Type 2 diabetes mellitus with diabetic p olyneuropathy, without long-term current use of insulin (HCC) [E11.42] Start: 01-21-2024 End: 01-21-2024 Patient encounter procedure 01/21/2024 9:00 AM EST Office Visit Internal Medicine [place] [address] [place], [place] [phone] Db Vences APRN.CHILDREN'S LUNCHROOM SUPERVISOR [address] [place] [address] 4 week follow up Internal Medicine [place] Comment on above: 4 week follow up Start: 01-20-2024 BP Controlled (<130/80) BP Controlled (<130/80) [facility] Start: 01-13-2024 End: 04-13-2024 Lipase [Enzymatic activity/volume] in Serum or Plasma [facility] Comment on above: Expected: 01/13/2024, Expires: Start: 01-13-2024 End: 04-13-2024 Microalbumin/Creatinine [Mass Ratio] in Urine [facility] Comment on above: Expected: 01/13/2024, Expires: Start: 01-03-2024 End: 01-03-2024 Patient encounter procedure 01/03/2024 9:00 AM EST Office Visit Internal Medicine [place] [address] [place] [address] Db Vences APRN.CHILDREN'S LUNCHROOM SUPERVISOR [address] [place] [address] ER follow up/4 week follow up Internal Medicine [place] Comment on above: ER follow up/4 week follow up Start: 12-24-2023 End: 12-24-2023 Patient encounter procedure 12/24/2023 10:00 AM EST Office Visit Internal Medicine [place] [address] [place] [address] Brian Gibson APRN.CRUISE DIRECTOR [address] [place] [phone] 4 week follow up Internal Medicine [place] Comment on above: 4 week follow up Start: 12-21-2023 End: 12-21-2023 Patient encounter procedure 12/21/2023 8:00 AM EST Office Visit Internal Medicine [place] [address] [place] [address] Brian Gibson APRN.CRUISE DIRECTOR [address] [place] [phone] 4 week follow up Internal Medicine [place] Comment on above: 4 week follow up Start: 12-20-2023 End: 12-20-2023 Patient encounter procedure 12/20/2023 3:20 PM EST Office Visit Internal Medicine [place] [address] [place] [address] Brian Gibson APRN.CRUISE DIRECTOR [address] [place] [phone] 8 week follow up Internal Medicine [place] Comment on above: 8 week follow up Start: 12-20-2023 End: 12-20-2023 Patient encounter procedure 12/20/2023 11:45 AM EST Appointment Ambulatory Surgery [address] [place] [address] Carlos Alexander MD [address] [place] [address] Colon cancer screening [Z12.11] Ambulatory Surgery Comment on above: Colon cancer screening [Z12.11] Start: 12-20-2023 End: 12-20-2023 Patient encounter procedure Ambulatory Surgery Comment on above: Colon cancer screening [Z12.11] Start: 12-13-2023 End: 12-13-2023 Patient encounter procedure 12/13/2023 9:00 AM EST Office Visit Internal Medicine [place] [address] [place] [address] Brian Gibson APRN.CRUISE DIRECTOR [address] [place], [place] [address] 8 week follow up Internal Medicine [place] Comment on above: 8 week follow up Start: 12-07-2023 End: 12-07-2023 Patient encounter procedure 12/07/2023 10:00 AM EDT Office Visit Neurology [address] [place] [address] Claudine Calderon PA-C [address] [place] [address] follow up memory loss and test Neurology Comment on above: follow up memory loss and test Start: 11-22-2023 End: 02-21-2024 25-hydroxyvitamin D3 [Mass/volume] in Serum or Plasma [facility] Comment on above: Expected: 11/22/2023, Expires: Start: 11-22-2023 End: 02-21-2024 DEO BY IFA WITH REFLEX [facility] Comment on above: Expected: 11/22/2023, Expires: Start: 11-22-2023 End: 02-21-2024 C reactive protein [Mass/volume] in Serum or Plasma [facility] Comment on above: Expected: 11/22/2023, Expires: Start: 11-22-2023 End: 02-21-2024 Comprehensive metabolic 2000 panel - Serum or Plasma [facility] Comment on above: Expected: 11/22/2023, Expires: Start: 11-22-2023 End: 02-21-2024 Erythrocyte sedimentation rate [facility] Comment on above: Expected: 11/22/2023, Expires: Start: 11-22-2023 End: 02-21-2024 Rheumatoid factor [Units/volume] in Serum or Plasma [facility] Comment on above: Expected: 11/22/2023, Expires: Start: 11-22-2023 End: 02-21-2024 Urate [Mass/volume] in Serum or Plasma [facility] Comment on above: Expected: 11/22/2023, Expires: Start: 10-26-2023 End: 10-26-2023 Patient encounter procedure 10/26/2023 10:00 AM EDT Office Visit Neurology [address] [place], [place] [phone] Claudine Calderon PA-C [address] [place], [place] [phone] follow up memory loss Neurology Comment on above: follow up memory loss Start: 10-10-2023 End: 10-10-2023 Patient encounter procedure 10/10/2023 9:00 PM EDT Office Visit Neurology [address] [place], [place] [phone] MICA (obstructive sleep apnea) [G47.33] Neurology Comment on above: MICA (obstructive sleep apnea) [G47.33] Start: 10-10-2023 Covid-19 Vaccine ( season) Covid-19 Vaccine () [facility] Start: 10-10-2023 Influenza vaccination Influenza Vaccine (#1) [facility] Start: 09-22-2023 End: 09-22-2023 Patient encounter procedure 09/22/2023 4:15 PM EDT Office Visit Neurology [address] [place], [place] [phone] Claudine Calderon PA-C [address] [place], [place] [phone] follow up memory loss Neurology Comment on above: follow up memory loss Start: 09-21-2023 End: 09-21-2023 Patient encounter procedure 09/21/2023 3:45 PM EDT Office Visit Neurology [address] [place] [address] Claudine Calderon PA-C [address] [place] [address] follow up memory loss Neurology Comment on above: follow up memory loss Start: 09-16-2023 End: 09-16-2023 Patient encounter procedure 09/16/2023 8:45 AM EDT Appointment Ambulatory Surgery [address] [place] [address] Carlos Alexander MD [address] [place] [address] Colon cancer screening [Z12.11] Ambulatory Surgery Comment on above: Colon cancer screening [Z12.11] Start: 09-08-2023 End: 09-08-2023 Patient encounter procedure 09/08/2023 4:15 PM EDT Office Visit Neurology [address] [place] [address] Claudine Calderon PA-C [address] [place] [address] follow up memory loss Neurology Comment on above: follow up memory loss Start: 08-24-2023 End: 08-24-2023 Patient encounter procedure 08/24/2023 11:30 AM EDT Office Visit Neurology [address] [place] [address] Claudine Calderon PA-C [address] [place] [address] follow up memory loss Neurology Comment on above: follow up memory loss Start: 08-21-2023 End: 08-21-2023 Patient encounter procedure 08/21/2023 9:05 PM EDT Office Visit Neurology [address] [place] [address] MICA (obstructive sleep apnea) [G47.33] Neurology Comment on above: MICA (obstructive sleep apnea) [G47.33] Start: 08-09-2023 End: 08-09-2023 Patient encounter procedure 08/09/2023 8:20 AM EDT Office Visit Internal Medicine [place] [address] [place] [address] Brian Gibson APRN.CRUISE DIRECTOR [address] [place], [place] [id number] 4 week medication follow up Internal Medicine [place] Comment on above: 4 week medication follow up Start: 07-23-2023 End: 07-23-2023 Patient encounter procedure 07/23/2023 8:20 AM EDT Office Visit Internal Medicine [place] [address] [place], [place] [id number] Brian Gibson APRN.CRUISE DIRECTOR [address] [place] [id number] 4 week medication follow up Internal Medicine [place] Comment on above: 4 week medication follow up Start: 07-16-2023 ANNUAL PCP TEAM CHRONIC DISEASE VISIT ANNUAL PCP TEAM CHRONIC DISEASE VISIT [facility] Start: 07-14-2023 End: 07-14-2023 Patient encounter procedure Ambulatory Surgery Comment on above: clifford john via my chart-jk Start: 06-29-2023 End: 06-29-2023 Anesthesia consultation 06/29/2023 11:59 PM EDT Anesthesia Event Ambulatory Surgery [address] [facility] [id number] Nan Milner APRN.PASSENGER BARGE MASTER [address] [place] [address] Ambulatory Surgery Start: 06-15-2023 End: 06-15-2023 Patient encounter procedure 06/15/2023 8:00 AM EDT Office Visit Internal Medicine [place] [address] [place], [place] [id number] Brian Gibson APRN.CRUISE DIRECTOR [address] [place], [place] [id number] Wellness Exam Internal Medicine [place] Comment on above: Wellness Exam Start: 06-09-2023 End: 06-09-2023 ambulatory 06/09/2023 8:00 AM EDT Results Only [place] [facility] [address] [place] [address] [place] [facility] Start: 06-07-2023 End: 09-06-2023 25-hydroxyvitamin D3 [Mass/volume] in Serum or Plasma VITAMIN D 25 HYDROXY Lab Routine Vitamin D deficiency Expected: 06/07/2023, Expires: 09/06/2023 [facility] Comment on above: Expected: 06/07/2023, Expires: Start: 06-07-2023 End: 09-06-2023 CBC W Auto Differential panel - Blood COMPLETE BLOOD COUNT AND DIFFERENTIAL Lab Routine Encounter for therapeutic drug monitoring Expected: 06/07/2023, Expires: 09/06/2023 [facility] Work Phone: Comment on above: Expected: 06/07/2023, Expires: Start: 06-07-2023 End: 09-06-2023 Comprehensive metabolic 2000 panel - Serum or Plasma COMPREHENSIVE METABOLIC PANEL Lab Routine Encounter for therapeutic drug monitoring Expected: 06/07/2023, Expires: 09/06/2023 [facility] Comment on above: Expected: 06/07/2023, Expires: Start: 06-07-2023 End: 09-06-2023 Lipid 1996 panel - Serum or Plasma LIPID PANEL BASIC Lab Routine Hypercholesterolemia Expected: 06/07/2023, Expires: 09/06/2023 [facility] Comment on above: Expected: 06/07/2023, Expires: Start: 06-07-2023 End: 09-06-2023 Magnesium [Mass/volume] in Serum or Plasma MAGNESIUM Lab Routine Encounter for therapeutic drug monitoring Expected: 06/07/2023, Expires: 09/06/2023 [facility] Comment on above: Expected: 06/07/2023, Expires: Start: 05-23-2023 ANNUAL PCP TEAM CHRONIC DISEASE VISIT ANNUAL PCP TEAM CHRONIC DISEASE VISIT [facility] Start: 05-23-2023 BP CONTROLLED (<130/80) BP CONTROLLED (<130/80) [facility] in Start: 04-21-2023 ANNUAL PCP TEAM CHRONIC DISEASE VISIT ANNUAL PCP TEAM CHRONIC DISEASE VISIT [facility] Start: 04-01-2023 ANNUAL PCP TEAM CHRONIC DISEASE VISIT ANNUAL PCP TEAM CHRONIC DISEASE VISIT [facility] Start: 03-03-2023 ANNUAL PCP TEAM CHRONIC DISEASE VISIT ANNUAL PCP TEAM CHRONIC DISEASE VISIT [facility] Start: 12-22-2022 End: 03-23-2023 Basic metabolic 2000 panel - Serum or Plasma BASIC METABOLIC PNL Lab Routine Primary hypertension Expected: 12/22/2022, Expires: 03/23/2023 [facility] Work Phone: Comment on above: Expected: 12/22/2022, Expires: 4 Start: 12-22-2022 End: 03-23-2023 Lipid 1996 panel - Serum or Plasma LIPID PANEL BASIC Lab Routine Hypercholesterolemia Expected: 12/22/2022, Expires: 03/23/2023 [facility] Work Phone: Comment on above: Expected: 12/22/2022, Expires: 4 Start: 11-23-2022 DIABETES SCREEN DIABETES SCREEN [facility] Start: 11-21-2022 Hemoglobin A1c measurement HbA1C [facility] Start: 10-09-2022 Covid-19 Vaccine ( season) Covid-19 Vaccine () [facility] Start: 10-09-2022 Influenza vaccination Influ[facility] Start: 05-14-2022 LIPID SCREEN LIPID SCREEN [facility] Start: 05-12-2022 PROSTATE CANCER SCREENING DISCUSSION PROSTATE CANCER SCREENING DISCUSSION [facility] Start: 05-12-2022 Prostate specific antigen measurement Prostate Cancer Screening Discussion [facility] Start: 03-05-2022 Patient discharge [facility] Start: 03-05-2022 Troponin I measurement [facility] Start: 03-05-2022 Following clinical pathway protocol [facility] Start: 03-05-2022 Assessment of risk of venous thromboembolism [facility] Start: 03-05-2022 Incentive spirometry [facility] Start: 03-05-2022 Inhalation therapy procedure [facility] Start: 03-05-2022 Insertion of catheter into peripheral vein [facility] Start: 03-05-2022 Introduction of urinary catheter [facility] Start: 03-05-2022 Measuring intake and output [place] Start: 03-05-2022 Oxygen therapy [facility] Start: 03-05-2022 Providing care according to standard [facility] Start: 03-05-2022 Provision of activity privileges [facility] Start: 03-05-2022 Referral to service [facility] Start: 03-05-2022 Tobacco use cessation education [facility] Start: 03-05-2022 [facility] Start: 03-05-2022 Electrocardiographic procedure [facility] Start: 03-05-2022 Verification routine [facility] Start: 03-05-2022 Admission procedure [facility] Start: 03-05-2022 Blood chemistry [facility] Start: 03-05-2022 End: 03-05-2022 [facility] Start: 03-03-2022 End: 05-03-2022 25-hydroxyvitamin D3 [Mass/volume] in Serum or Plasma [facility] Work Phone: Comment on above: Expected: 03/03/2022, Expires: 3 Start: 03-03-2022 End: 05-03-2022 CBC panel - Blood by Automated count [facility] Work Phone: Comment on above: Expected: 03/03/2022, Expires: 3 Start: 03-03-2022 End: 05-03-2022 Cobalamin (Vitamin B12) [Mass/volume] in Serum or Plasma [facility] Work Phone: Comment on above: Expected: 03/03/2022, Expires: 3 Start: 03-03-2022 End: 05-03-2022 Comprehensive metabolic 2000 panel - Serum or Plasma [facility] Work Phone: Comment on above: Expected: 03/03/2022, Expires: 3 Start: 03-03-2022 End: 05-03-2022 Lipid 1996 panel - Serum or Plasma [facility] Work Phone: Comment on above: Expected: 03/03/2022, Expires: 3 Start: 03-03-2022 End: 05-03-2022 Thyrotropin [Units/volume] in Serum or Plasma [facility] Work Phone: Comment on above: Expected: 03/03/2022, Expires: 3 Start: 12-20-2021 End: 01-03-2022 Influenza virus A and B RNA and SARS-CoV-2 (COVID-19) N gene panel - Respiratory specimen by KIMBERLEE with probe detection COVID WITH FLUA+B, ROUTINE Microbiology Routine Suspected COVID-19 virus infection Expected: 12/20/2021, Expires: 01/03/2022 [facility] Work Phone: Comment on above: Expected: 12/20/2021, Expires: 2 Start: 06-07-2021 COVID-19 VACCINE (4 - Booster for Pfizer series) COVID-19 VACCINE (4 - Booster for Pfizer series) [facility] Start: 02-08-2021 DEPRESSION ASSESSMENT DEPRESSION ASSESSMENT [facility] Start: 06-07-2018 Colonoscopy COLONOSCOPY [facility] Start: 06-07-2018 COLORECTAL CANCER SCREENING COLORECTAL CANCER SCREENING [facility] Start: 06-07-2018 Screening for malignant neoplasm of colon [facility] Start: 05-12-2018 PNEUMOCOCCAL (2 - PCV) PNEUMOCOCCAL (2 - PCV) [facility] Start: 05-12-2018 Pneumococcal vaccination [facility] Start: 05-12-2018 Pneumococcal Vaccine: 50+ (2 of 2 - PCV) Pneumococcal Vaccine: 50+ (2 of 2 - PCV) [facility] Start: 10-21-2015 SHINGRIX VACCINE (1 of 2) SHINGRIX VACCINE (1 of 2) [facility] Start: 2010 COLOGUARD (FIT-DNA) COLOGUARD (FIT-DNA) [facility] Start: [address] COLONOGRAPHY [facility] Start: 2010 FECAL OCCULT BLOOD FECAL OCCULT BLOOD [facility] Start: 2010 Screening for malignant neoplasm of colon [facility] Start: 2010 SIGMOIDOSCOPY SIGMOIDOSCOPY [facility] Start: 1984 Hepatitis B Vaccine (1 of 3 - 19+ 3-dose series) Hepatitis B Vaccine (1 of 3 - 19+ 3-dose series) [facility] Start: 1984 Urine microalbumin profile DTAP,TDAP,TD (1 - Tdap) [facility] Start: 10-21-1983 Anxiety Screening Anxiety Screening [facility] Start: 10-21-1983 BP CONTROLLED (<130/80) BP CONTROLLED (<130/80) [facility] Start: 1977 Adult depression screening assessment DEPRESSION SCREENING [facility] Start: 10-21-1975 Diabetic foot examination Diabetic Foot Exam [facility] Start: 10-21-1975 Glaucoma screening Dilated Retinal Exam [facility] Start: 10-21-1975 Hepatitis B screening Urine Albumin:Creatinine Ratio [facility] Start: 1965 HEPATITIS B (1 of 3 - 3-dose series) HEPATITIS B (1 of 3 - 3-dose series) [facility] Start: 1965 Hepatitis B Vaccine (1 of 3 - 3-dose series) Hepatitis B Vaccine (1 of 3 - 3-dose series) [facility] Bacteria identified in Urine by Culture URINE CULTURE Microbiology Routine Pelvic pain 01/19/2023 1:25 PM EST [facility] Work Phone: Bacteria identified in Urine by Culture URINE CULTURE Microbiology Routine Pain with urination 12/21/2023 4:10 PM [facility] Bacteria identified in Urine by Culture URINE CULTURE Microbiology Routine Acute pancreatitis, unspecified complication status, unspecified pancreatitis type Urinary tract infection without hematuria, site unspecified Ordered: 01/13/2024 [facility] Comment on above: Ordered: 01/13/2024 Colonoscopy [facility] End: 04-02-2023 Ct abdomen & pelvis w/contrast material CT ABD/PEL W IVCON Radiology Routine Lymphadenopathy, inguinal Intra-abdominal and pelvic swelling, mass and lump, unspecified site Left lower quadrant abdominal pain 1 Occurrences starting 03/03/2022 until 04/02/2023 [facility] Work Phone: Comment on above: 1 Occurrences starting 03/03/2022 until 04/02/2023 End: 04-29-2023 EGD DIAGNOSTIC EGD DIAGNOSTIC Endoscopy Routine History of colonic polyps Gastroesophageal reflux disease with esophagitis without hemorrhage 1 Occurrences starting 04/28/2022 until 04/29/2023 [facility] Work Phone: Comment on above: 1 Occurrences starting 04/28/2022 until 04/29/2023 Glucose [Mass/volume ] in Serum or Plasma GLUCOSE, BLOOD (POC) Lab Routine Glucose found in urine on examination Ordered: 12/21/2023 [facility] Work Phone: Comment on above: Ordered: 12/21/2023 HB A1C B/O HB A1C B/O Lab R outine Glucosuria Ordered: 12/24/2023 [facility] Work Phone: Comment on above: Ordered: 12/24/2023 End: 04-01-2023 HOME SLEEP APNEA TEST (HSAT) HOME SLEEP APNEA TEST (HSAT) Procedures Routine Sleep apnea, unspecified type 1 Occurrences starting 04/01/2022 until 04/01/2023 [facility] Work Phone: Comment on above: 1 Occurrences starting 04/01/2022 until 04/01/2023 End: 04-30-2023 Mri brain brain stem w/o contrast material MRI BRAIN WO IVCON Radiology Routine Dementia without behavioral disturbance (HCC) 1 Occurrences starting 03/31/2022 until 04/30/2023 [facility] Work Phone: Comment on above: 1 Occurrences starting 03/31/2022 until 04/30/2023 End: 05-27-2023 PAP TITRATION PSG (CPAP, BIPAP, ASV) PAP TITRATION PSG (CPAP, BIPAP, ASV) Procedures Routine Sleep apnea, unspecified type 1 Occurrences starting 04/27/2022 until 05/27/2023 [facility] Work Phone: Comment on above: 1 Occurrences starting 04/27/2022 until 05/27/2023 End: 07-17-2024 PAP TITRATION PSG (CPAP, BIPAP, ASV) PAP TITRATION PSG (CPAP, BIPAP, ASV) Procedures Routine MICA (obstructive sleep apnea) 1 Occurrences starting 06/18/2023 until 07/17/2024 [facility] Work Phone: Comment on above: 1 Occurrences starting 06/18/2023 until 07/17/2024 End: 11-18-2024 PAP TITRATION PSG (CPAP, BIPAP, ASV) PAP TITRATION PSG (CPAP, BIPAP, ASV) Procedures Routine MICA (obstructive sleep apnea) 1 Occurrences starting 2023 until 11/18/2024 [facility] Work Phone: Comment on above: 1 Occurrences starting 2023 until 11/18/2024 Patient Education ED PEPTIC ULCE R vs GASTRITIS Viral Gastroenteritis [facility] Work Phone: Patient referral [facility] Work Phone: End: 04-29-2023 Screening colonoscopy COLONOSCOPY SCREENING Endoscopy Routine History of colonic polyps Gastroesophageal reflux disease with esophagitis without hemorrhage 1 Occurrences starting 04/28/2022 until 04/29/2023 [facility] Work Phone: Comment on above: 1 Occurrences starting 04/28/2022 until 04/29/2023 UA DIP B/O UA DIP B/O Lab R outine Lower abdominal pain Ordered: 06/15/2023 [facility] Work Phone: Comment on above: Ordered: 06/15/2023 UA DIP B/O UA DIP B/O Lab R outine Acute pancreatitis, unspecified complication status, unspecified pancreatitis type Urinary tract infection without hematuria, site unspecified Ordered: 01/13/2024 [facility] Work Phone: Comment on above: Ordered: 01/13/2024 End: 04-08-2023 Us compl joint r-t w/image documentation US HIP LT Radiology Routine Lymphadenopathy, inguinal Intra-abdominal and pelvic swelling, mass and lump, unspecified site Left lower quadrant abdominal pain 1 Occurrences starting 03/09/2022 until 04/08/2023 [facility] Work Phone: Comment on above: 1 Occurrences starting 03/09/2022 until 04/08/2023 End: 05-01-2023 US KIDNEY/BLADDER US KIDNEY/BLADDER Radiology Routine Multiple renal cysts 1 Occurrences starting 04/01/2022 until 05/01/2023 [facility] Work Phone: Comment on above: 1 Occurrences starting 04/01/2022 until 05/01/2023 End: 04-08-2023 US PELVIS LTD US PELVIS LTD Radiology Routine Lymphadenopathy, inguinal Intra-abdominal and pelvic swelling, mass and lump, unspecified site Left lower quadrant abdominal pain 1 Occurrences starting 03/09/2022 until 04/08/2023 [facility] Work Phone: Comment on above: 1 Occurrences starting 03/09/2022 until 04/08/2023 End: 12-21-2024 XR Foot - bilateral AP and Lateral and oblique XR FOOT GENERAL 3V AP/LAT/OBL BILATERAL Radiology Routine Bilateral foot pain 1 Occurrences starting 11/22/2023 until 12/21/2024 [facility] Work Phone: Comment on above: 1 Occurrences starting 11/22/2023 until 12/21/2024 XR Foot - bilateral AP and Lateral and oblique XR FOOT GENERAL 3V AP/LAT/OBL BILATERAL Radiology Routine Bilateral foot pain 11/23/2023 9:58 AM EDT [facility] Work Phone: [facility] Immunizations Immunization Date Immunization Notes Care Provider Abdi walker 01-13-2024 COVID-19 vaccine, ag e 12+ yr ([employer] [facility]) Db Vences TELEHEALTH CASE MANAGER.CHILDREN'S LUNCHROOM SUPERVISOR Work Phone: [facility] 11-22-2023 influenza, injectabl e, quadrivalent, preservative free Brian Gibson LAW EXAMINER-C Work Phone: [facility] 11-22-2023 influenza, seasonal, injectable Brian Gibson TELEHEALTH CASE MANAGER.CRUISE DIRECTOR Work Phone: [facility] 12-08-2022 influenza, injectabl e, quadrivalent, preservative free Brian Paige TELEHEALTH CASE MANAGER.CRUISE DIRECTOR Work Phone: [facility] 12-08-2022 Pfizer Covid-19 (Comirnaty) Brian Paige LAW EXAMINER-C Work Phone: [facility] 12-08-2022 influenza virus vacc ine, unspecified formulation Carmella Mayfield TELEHEALTH CASE MANAGER.CRUISE DIRECTOR Work Phone: [facility] 11-21-2021 Covid Pfizer Bivalen t Booster Brian Paige LAW EXAMINER-C Work Phone: [facility] 11-21-2021 influenza, injectabl e, quadrivalent, preservative free Brian Paige TELEHEALTH CASE MANAGER.CRUISE DIRECTOR Work Phone: [facility] Work Phone: 11-21-2021 influenza virus vacc ine, unspecified formulation Brian Paige TELEHEALTH CASE MANAGER.CRUISE DIRECTOR Work Phone: [facility] 02-07-2021 Covid (Pfizer) Brian Paige LAW EXAMINER-C Work Phone: [facility] 02-07-2021 influenza, injectabl e, quadrivalent, preservative free Brian Paige TELEHEALTH CASE MANAGER.CRUISE DIRECTOR Work Phone: [facility] Work Phone: 07-12-2020 Covid (Pfizer) Brian Paige LAW EXAMINER-C Work Phone: [facility] 06-20-2020 Covid (Pfizer) Brian Paige LAW EXAMINER-C Work Phone: [facility] 09-04-2018 tetanus toxoid, redu birgit diphtheria toxoid, and acellular pertussis vaccine, adsorbed [facility] Work Phone: 12-07-2017 influenza, injectabl e, quadrivalent, contains preservative Romie López MD Work Phone: [facility] 12-07-2017 influenza, injectabl e, quadrivalent, preservative free Brian Paige LAW EXAMINER-C Work Phone: [facility] 05-12-2017 pneumococcal polysaccharide vaccine, 23 valent Romie López MD Work Phone: [facility] Work Phone: 11-18-2015 influenza, injectabl e, quadrivalent, preservative free Brian Paige LAW EXAMINER-C Work Phone: [facility] 11-18-2015 influenza, seasonal, injectable Brian Paige TELEHEALTH CASE MANAGER.CRUISE DIRECTOR Work Phone: [facility] Work Phone: 07-04-2014 tetanus toxoid, redu birgit diphtheria toxoid, and acellular pertussis vaccine, adsorbed Brian Paige TELEHEALTH CASE MANAGER.CRUISE DIRECTOR Work Phone: [facility] Work Phone: Payers Date Payer Category Payer Self-pay [id number] 2022 Unknown [id number] 2014 Medicaid [facility] [employer] [id number] 2014-Present [phone] [address] [place] [address] Medicaid [id number] 2014 Medicaid [id number] 1965 Unknown [id number] 1965 Unknown [id number] 1965 Unknown [id number] 1965 Unknown [id number] Unknown [id number] Unknown [id number] Unknown [id number] Unknown [id number] Unknown [id number] Unknown [id number] Unknown [id number] Unknown [id number] Unknown [id number] Unknown [id number] Social History Date Type Detail Facility Start: 12-20-2021 End: 06-21-2024 Tobacco smoking status ALIS Smokes tobacco daily [facility] Work Phone: History of tobacco use Cigarette Smoker C [facility] Work Phone: Start: 02-17-2021 End: 01-13-2024 Alcohol intake Current drinker of alcohol (finding) [facility] Start: 02-17-2021 End: 07-15-2022 Alcohol intake [facility] Start: 02-26-2021 History SDOH Alcohol Frequency 98 [facility] Start: 02-26-2021 End: 03-14-2021 History SDOH Alcohol Binge 1 [facility] Start: 02-26-2021 End: 03-14-2021 History SDOH Social Connections Phone 3 [facility] Start: 02-26-2021 History SDOH Social Connections Get Together 2 [facility] Start: 02-26-2021 History SDOH Social Connections Living 8 [facility] Start: 02-26-2021 History SDOH Stress 4 [facility] Start: 06-08-2019 Education 12 [facility] Start: 1965 Sex Assigned At Not on file [facility] Start: 07-05-2021 End: 03-05-2022 Tobacco smoking status NHIS Unknown if ever smoked [facility] Start: 10-21-2019 Cigarettes [facility] Start: 1965 Sex Assigned At Male [facility] Start: 12-20-2021 End: 2023 Tobacco use and exposure Former smokeless tobacco user [facility] Start: 02-26-2021 End: 07-15-2022 Social connection and isolation panel [facility] Do you belong to any clubs or organizations such as mosque groups, [employer], [employer]shine or athletic groups, or school groups? No [facility] Are you now , , , , never or living with a partner? Living with partner [facility] How often to you hav e a drink containing alcohol? Patient refused [facility] How often do you hav e 6 or more drinks on 1 occasion? Never [facility] How hard is it for y ou to pay for the very basics like food, housing, medical care, and heating Not very hard [facility] Do you feel stress - tense, restless, nervous, or anxious, or unable to sleep at night because your mind is troubled all the time - these days [OSQ] Rather much [facility] (I/We) worried wheth er (my/our) food would run out before (I/we) got money to buy more. Sometimes true [facility] At any time in the p ast 12 months, were you homeless or living in group home [including now]? Yes [facility] Start: 04-05-2023 Tobacco smoking status Heavy tobacco smoker (finding) [facility] Sex Assigned At Sex [facility] How often to you hav e a drink containing alcohol? 4 or more times a [facility] standard dr inks containing alcohol do you have on a typical day? 5 or 6 [facility] How often do you hav e 6 or more drinks on 1 occasion? Daily or almost daily [facility] (I/We) worried wheth er (my/our) food would run out before (I/we) got money to buy more. Often true [facility] Start: 04-13-2020 End: 05-13-2020 Exposure to SARS-CoV-2 (event) Not sure [facility] Functional Status Date Assessment Result Facility 07-12-2023 Functional Status Independent [facility] 07-12-2023 Functional Status Environmental Safety Implemented Adequate room lighting, Bed in low position, Call device within reach, Other: Awaiting CT [facility] 07-12-2023 Functional Status Standard Safet y ID band on, Allergy Band on, Call device within reach, Bed in low position, Wheels locked, Visitor at bedside [facility] 05-01-2023 Functional Status Independent [facility] 03-05-2022 Functional status [facility] Work Phone: Mental Status Date Assessment Result Facility 07-12-2023 Mental Status Orientation Oriented x 4 [facility] 07-12-2023 Mental Status [facility] 05-01-2023 Mental Status Orientation Oriented x 4 [facility] 03-05-2022 Cognitive function Voice/Name [facility] Work Phone: 03-05-2022 Cognitive function Voice/Name [facility] Work Phone: Clinical Notes 05-13-2020 to 08-21-2024 Note Date & Type Note Facility 08-21-2024 Evaluation note Diagnosis Onset Date Resolution UTI symptoms acute August 21, 2 025 7:50am [facility] Work Phone: [phone]) 332-609007-14-2025 Evaluation note* Diagnosis Onset Date Resolution Status Admit Date UTI symptoms acute August 21, 2 025 7:50am Acute upper respiratory infection acute October 19, 2024 5:04pm Urinary frequency acute Septemb 2024 1:09pm Constipation inactive October 242024 1:09pm [facility] Work Phone: 1(142) 956-477312-18-2024 Telephone encounter Note* Telephone Encounter - Georgia Vincent LPN - 01/26/2024 11:26 AM EST Rec'd via mail request of records from 01/19/23 to present from [facility] with [facility] division of disability determination. This request was faxed to [facility] medical records release. [facility]12-18-2024 Miscellaneous Notes* Telephone Encounter - Georgia Vincent LPN - 01/26/2024 11:26 AM EST Rec'd via mail request of records from 01/19/23 to present from [facility] with disabilities division of disability determination. This request was faxed to [facility] medical records release. [facility] Telephone encounter Note * Telephone Encounter - Cindy Nolasco LPN - 01/25/2024 10:38 AM EST Called patient, no answer. LVM What DME company supplies patients pap machine? Please review and advise Cindy Nolasco LPN January 25, 2024 10:39 AM [facility]12-17-2024 Miscellaneous Notes* Telephone Encounter - Cindy Nolasco LPN - 01/25/2024 10:38 AM EST Called patient, no answer. LVM What DME company supplies patients pap machine? Please review and advise Cindy Nolasco LPN January 25, 2024 10:39 AM [facility] History of Present illness Narrative* Db Vences APRN.[employer] - 01/13/2024 8:40 AM EST SUBJECTIVE: Urine Albumin:Creatinine Ratio Never done Dilated Retinal Exam Never done Diabetic Foot Exam Never done Hepatitis B Vaccine(1 of 3 - 19+ 3-dose series) Never done Shingrix Vaccine(1 of 2) Never done Pneumococcal Vaccine(2 of 2 - PCV) due on 05/12/2018 Colorectal Cancer Screening due on 06/07/2018 Covid-19 Vaccine( season) due on 10/10/2023 HPI Emma Vasquez is a 58 year old male. PMH significant for ACTIVE PROBLEM LIST Tobacco Use History of Colonic Polyps Primary Hypertension Memory Difficulties Internal Hemorrhoids Moderate Episode of Recurrent Major Depressive Disorder (Hcc) Multiple Renal Cysts Hypercholesterolemia Hepatic Steatosis Gallbladder Polyp Vitamin D Deficiency Mica (Obstructive Sleep Apnea) Type 2 Diabetes Mellitus With Diabetic Polyneuropathy, Without Long-Term Current Use of Insulin (Hcc) Anxiety and Depression Presents for follow up diabetes mellitus. Review of chart shows 2 ER visit since last here. [facility] 12/28/[address] for [address] concerning for pancreatitis. Lipase elevated. He preferred OP management. Clear iquids x 3 days recommended and to follow up with Brian Gibson APRN.CRUISE DIRECTOR. He presented to [facility] 01/02/2024 with report of constipation and abdominal pain. He was taking oxycontin. He was referred to ED as no imaging or labs available on this date. He presented to [facility] ER. Labs showed lipase trending downward but remained elevated.. Today reports feeling improved. Notes oral intake back to normal. No abdominal pain currently. Heartburn: none reported Reflux: none reported Abdominal pain: resolved Nausea: no Vomiting: no Diarrhea: no Constipation: no BRBPR: no Black tarry: no Dysuria: no Urgency: no Frequency: no Taking metformin as ordered Taking Keflex: states not yet completed course, had a lae start DIABETES MELLITUS: Reports decreased pasta intake. Without report of excessive thirst or increased frequency of urination, chest pain or dyspnea , numbness, tingling or pain in extremities, new or unusual visual symptoms, low sugar/hypoglycemic reactions, weight loss/gain, lightheadedness/dizziness, and bowel changes/loose stools. Home glucose readings: does not check. Patient's last HgA1C was Hemoglobin A1C (POCT) (%) Date Value 12/24/2023 7.3 05/22/2022 6.2 ) Review of Systems Constitutional: Negative. Respiratory: Negative. Cardiovascular: Negative. Gastrointestinal: Negative. Objective BP 147/94 Pulse 87 Resp 16 Wt 75.8 kg (167 lb 1.7 oz) BMI 26.17 kg/m Physical Exam Vitals and nursing note reviewed. Constitutional: Appearance: Normal appearance. HENT: Head: Normocephalic and atraumatic. Eyes: Conjunctiva/sclera: Conjunctivae normal. Neck: Thyroid: No thyromegaly. Vascular: Normal carotid pulses. No JVD. Cardiovascular: Rate and Rhythm: Normal rate and regular rhythm. Heart sounds: Normal heart sounds. Pulmonary: Effort: Pulmonary effort is normal. Breath sounds: Normal breath sounds. Abdominal: General: Bowel sounds are normal. Palpations: Abdomen is soft. Musculoskeletal: Right lower leg: No edema. Left lower leg: No edema. Neurological: General: No focal deficit present. Mental Status: He is alert. ALLERGIES Allergen Reactions Penicillins Unknown, Hives Medications metFORMIN (GLUCOPHAGE) 500 mg tablet Take 1 tablet by mouth two times a day with meals. DULoxetine (CYMBALTA) 30 mg capsule Take 1 capsule by mouth once daily. CPAP/BIPAP/OTHER Type .CPAPSettings into a note to see current settings/supplies/DME information. Cholecalciferol, Vitamin D3, 50 mcg (2,000 unit) cap Take 1 capsule by mouth once daily. PAST MEDICAL HISTORY Diagnosis Date Essential hypertension Hemorrhoids History of colonic polyps 06/07/2017 06/07/17 25 mm sessile polyp sigmoid colon. 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 Rec: 6mo follow up Hypercholesterolemia 05/22/2022 Moderate episode of recurrent major depressive disorder (HCC) 04/01/2022 Multiple renal cysts 04/01/2022 Primary hypertension 03/03/2022 Smoker Tobacco use 05/12/2017 Social History Tobacco Use Smoking status: Every Day Current packs/day: 1.00 Average packs/day: 1 pack/day for 17.0 years (17.0 ttl pk-yrs) Types: Cigarettes Smokeless tobacco: Former Vaping Use Vaping status: Never Used Substance Use Topics Alcohol use: Yes Alcohol/week: 21.0 standard drinks of alcohol Types: 21 Cans of Beer (12oz) per week Drug use: Yes Comment: past use of crack and marijuana ASSESSMENT/PLAN: 1. Acute pancreatitis, unspecified complication status, unspecified pancreatitis type - ICD9: 577.0, ICD10: K85.90 (primary diagnosis) Symptoms are resolved - UA DIP B/O - URINE CULTURE - LIPASE 2. Urinary tract infection without hematuria, site unspecified - ICD9: 599.0, ICD10: N39.0 symptoms improved, still taking Keflex 3. Encounter for immunization - ICD9: V03.89, ICD10: Z23 - PFIZER-BIONTECH COVID-19 VACCINE AGE 12+ YR (COMIRNATY) 4. Type 2 diabetes mellitus with diabetic polyneuropathy, without long-term current use of insulin (HCC) - ICD9: 250.60, 357.2, ICD10: E11.42 suboptimal control - Continue current medications - Counseled on healthy diet and regular exercise - diet information provided in office and in writing - Follow up in 3 months, sooner should any other issues arise. - ALBUMIN/CREATININE RATIO, URINE - CONSULT TO OPHTHALMOLOGY - HEMOGLOBIN A1C - METFORMIN 500 MG TABLET 5. Screening for diabetic retinopathy - ICD9: V80.2, ICD10: Z13.5 - CONSULT TO OPHTHALMOLOGY - will go to Chaparro Vences APRN.CNS Medical Decision Making: Problems: Moderate: 1+ chronic illnesses with change Data: Unique source(s) for external note(s) reviewed: 2 Unique test result(s) reviewed: 3+ Unique test(s) ordered: 2 Risk: Moderate: Drug management Medical Decision Making Level: 4 - Moderate documented in this [facility]12-[facility] NoteHNO ID: [id number] Author: DB VENCES APRN.CNS Service: ? Author Type: Nurse Specialist Type: Progress Notes Filed: 01/13/2024 09:32 Note Text: SUBJECTIVE: Urine Albumin:Creatinine Ratio Never done Dilated Retinal Exam Never done Diabetic Foot Exam Never done Hepatitis B Vaccine(1 of 3 - 19+ 3-dose series) Never done Shingrix Vaccine(1 of 2) Never done Pneumococcal Vaccine(2 of 2 - PCV) due on 05/12/2018 Colorectal Cancer Screening due on 06/07/2018 Covid-19 Vaccine(2023- season) due on 10/10/2023 HER[facility]ERTO Emma Vasquez is a 58 year old male. PMH significant for ACTIVE PROBLEM LIST Tobacco Use History of Colonic Polyps Primary Hypertension Memory Difficulties Internal Hemorrhoids Moderate Episode of Recurrent Major Depressive Disorder (Hcc) Multiple Renal Cysts Hypercholesterolemia Hepatic Steatosis Gallbladder Polyp Vitamin D Deficiency Mica (Obstructive Sleep Apnea) Type 2 Diabetes Mellitus With Diabetic Polyneuropathy, Without Long-Term Current Use of Insulin (Hcc) Anxiety and Depression Presents for follow up diabetes mellitus. Review of chart shows 2 ER visit since last here. [facility] 12/28/[address] for [address] concerning for pancreatitis. Lipase elevated. He preferred OP management. Clear iquids x 3 days recommended and to follow up with Brian Gibson APRN.CNP. He presented to [facility] 01/02/2024 with report of constipation and abdominal pain. He was taking oxycontin. He was referred to ED as no imaging or labs available on this date. He presented to [facility] ER. Labs showed lipase trending downward but remained elevated.. Today reports feeling improved. Notes oral intake back to normal. No abdominal pain currently. Heartburn: none reported Reflux: none reported Abdominal pain: resolved Nausea: no Vomiting: no Diarrhea: no Constipation: no BRBPR: no Black tarry: no Dysuria: no Urgency: no Frequency: no Taking metformin as ordered Taking Keflex: states not yet completed course, had a lae start DIABETES MELLITUS: Reports decreased pasta intake. Without report of excessive thirst or increased frequency of urination, chest pain or dyspnea , numbness, tingling or pain in extremities, new or unusual visual symptoms, low sugar/hypoglycemic reactions, weight loss/gain, lightheadedness/dizziness, and bowel changes/loose stools. Home glucose readings: does not check. Patient's last HgA1C was Hemoglobin A1C (POCT) (%) Date Value 12/24/2023 7.3 05/22/2022 6.2 ) Review of Systems Constitutional: Negative. Respiratory: Negative. Cardiovascular: Negative. Gastrointestinal: Negative. Objective BP 147/94 Pulse 87 Resp 16 Wt 75.8 kg (167 lb 1.7 oz) BMI 26.17 kg/m? Physical Exam Vitals and nursing note reviewed. Constitutional: Appearance: Normal appearance. HENT: Head: Normocephalic and atraumatic. Eyes: Conjunctiva/sclera: Conjunctivae normal. Neck: Thyroid: No thyromegaly. Vascular: Normal carotid pulses. No JVD. Cardiovascular: Rate and Rhythm: Normal rate and regular rhythm. Heart sounds: Normal heart sounds. Pulmonary: Effort: Pulmonary effort is normal. Breath sounds: Normal breath sounds. Abdominal: General: Bowel sounds are normal. Palpations: Abdomen is soft. Musculoskeletal: Right lower leg: No edema. Left lower leg: No edema. Neurological: General: No focal deficit present. Mental Status: He is alert. ALLERGIES Allergen Reactions Penicillins Unknown, Hives Medications metFORMIN (GLUCOPHAGE) 500 mg tablet Take 1 tablet by mouth two times a day with meals. DULoxetine (CYMBALTA) 30 mg capsule Take 1 capsule by mouth once daily. CPAP/BIPAP/OTHER Type .CPAPSettings into a note to see current settings/supplies/DME information. Cholecalciferol, Vitamin D3, 50 mcg (2,000 unit) cap Take 1 capsule by mouth once daily. PAST MEDICAL HISTORY Diagnosis Date Essential hypertension Hemorrhoids History of colonic polyps 06/07/2017 06/07/17 25 mm sessile polyp sigmoid colon. 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 Rec: 6mo follow up Hypercholesterolemia 05/22/2022 Moderate episode of recurrent major depressive disorder (HCC) 04/01/2022 Multiple renal cysts 04/01/2022 Primary hypertension 03/03/2022 Smoker Tobacco use 05/12/2017 Social History Tobacco Use Smoking status: Every Day Current packs/day: 1.00 Average packs/day: 1 pack/day for 17.0 years (17.0 ttl pk-yrs) Types: Cigarettes Smokeless tobacco: Former Vaping Use Vaping status: Never Used Substance Use Topics Alcohol use: Yes Alcohol/week: 21.0 standard drinks of alcohol Types: 21 Cans of Beer (12oz) per week Drug use: Yes Comment: past use of crack and marijuana ASSESSMENT/PLAN: 1. Acute pancreatitis, unspecified complication status, unspecified pancreatitis type - ICD9: 577.0, ICD10: K85.90 (primary diagnosis) Symptoms are resolved - UA DIP B/O - URINE CULTURE - (more content not included)...[facility]11-24-2024 NoteHNO ID: [id number] Author: BEBA COOK APRN.CRUISE DIRECTOR Service: ? Author Type: Nurse Practitioner Type: Progress Notes Filed: 01/02/2024 09:31 Note Text: This note was created using NoteWriter. Subjective Emma Vasquez is a 58 year old male. 58 year old male with PMH DM, HTN, presents for abdominal pain Acute onset Lower abdominal pain LBM 3 days ago +nausea +low grade fever +chills +passing gas Denies emesis Denies CP Has used laxative and OTC OF note, he was recently discharged from [facility] ED after diagnosed with pancreatitis He was provided Oxycontin Has appt with Brian Gibson tomorrow The history is provided by the patient. No humanities and languages professor was used. PAST MEDICAL HISTORY Diagnosis Date - Essential hypertension - Hemorrhoids - History of colonic polyps 06/07/2017 06/07/17 25 mm sessile polyp sigmoid colon. 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 Rec: 6mo follow up - Hypercholesterolemia 05/22/2022 - Moderate episode of recurrent major depressive disorder (HCC) 04/01/2022 - Multiple renal cysts 04/01/2022 - Primary hypertension 03/03/2022 - Smoker - Tobacco use 05/12/2017 PAST SURGICAL HISTORY Procedure Laterality Date - COLONOSCOPY FLX DX W/COLLJ SPEC WHEN PFRMD 06/07/2017 Colonoscopy ALLERGIES Penicillins MEDICATIONS - metFORMIN (GLUCOPHAGE) 500 mg tablet Take 1 tablet by mouth two times a day with meals. - DULoxetine (CYMBALTA) 30 mg capsule Take 1 capsule by mouth once daily. - CPAP/BIPAP/OTHER Type .CPAPSettings into a note to see current settings/supplies/DME information. - Cholecalciferol, Vitamin D3, 50 mcg (2,000 unit) cap Take 1 capsule by mouth once daily. FAMILY HISTORY Problem Relation Age of Onset - Diabetes Mother - Heart Father - Hypertension Father Social History Tobacco Use - Smoking status: Every Day Current packs/day: 1.00 Average packs/day: 1 pack/day for 17.0 years (17.0 ttl pk-yrs) Types: Cigarettes - Smokeless tobacco: Former Vaping Use - Vaping status: Never Used Substance Use Topics - Alcohol use: Yes Alcohol/week: 21.0 standard drinks of alcohol Types: 21 Cans of Beer (12oz) per week - Drug use: Yes Comment: past use of crack and marijuana Review of Systems Objective There were no vitals taken for this visit. Physical Exam Constitutional: Appearance: Normal appearance. Abdominal: Tenderness: There is abdominal tenderness (right lower quadrant and left lower quadrant). Neurological: Mental Status: He is alert. Assessment and Plan ASSESSMENT/PLAN: 1. Lower abdominal pain - ICD9: 789.09, ICD10: R10.30 - Patient recently evaluated for abdominal pain Dx pancreatitis No BM x 3 days Lower abdominal pain Was prescribed Oxycontin SBO VS constipation No imaging or labs available Wednesday afternoon, Referred to ED Declines EMS Beba Cook APRN.[facility]11-24-2024 History of Present illness Narrative* Beba Cook APRN.CRUISE DIRECTOR - 01/02/2024 9:27 AM EST This note was created using NoteWriter. Subjective Emma Vasquez is a 58 year old male. 58 year old male with PMH DM, HTN, presents for abdominal pain Acute onset Lower abdominal pain LBM 3 days ago +nausea +low grade fever +chills +passing gas Denies emesis Denies CP Has used laxative and OTC OF note, he was recently discharged from [facility] ED after diagnosed with pancreatitis He was provided Oxycontin Has appt with Brian Gibson tomorrow The history is provided by the patient. No humanities and languages professor was used. PAST MEDICAL HISTORY Diagnosis Date Essential hypertension Hemorrhoids History of colonic polyps 06/07/2017 06/07/17 25 mm sessile polyp sigmoid colon. 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 Rec: 6mo follow up Hypercholesterolemia 05/22/2022 Moderate episode of recurrent major depressive disorder (HCC) 04/01/2022 Multiple renal cysts 04/01/2022 Primary hypertension 03/03/2022 Smoker Tobacco use 05/12/2017 PAST SURGICAL HISTORY Procedure Laterality Date COLONOSCOPY FLX DX W/COLLJ SPEC WHEN PFRMD 06/07/2017 Colonoscopy ALLERGIES Penicillins MEDICATIONS metFORMIN (GLUCOPHAGE) 500 mg tablet Take 1 tablet by mouth two times a day with meals. DULoxetine (CYMBALTA) 30 mg capsule Take 1 capsule by mouth once daily. CPAP/BIPAP/OTHER Type .CPAPSettings into a note to see current settings/supplies/DME information. Cholecalciferol, Vitamin D3, 50 mcg (2,000 unit) cap Take 1 capsule by mouth once daily. FAMILY HISTORY Problem Relation Age of Onset Diabetes Mother Heart Father Hypertension Father Social History Tobacco Use Smoking status: Every Day Current packs/day: 1.00 Average packs/day: 1 pack/day for 17.0 years (17.0 ttl pk-yrs) Types: Cigarettes Smokeless tobacco: Former Vaping Use Vaping status: Never Used Substance Use Topics Alcohol use: Yes Alcohol/week: 21.0 standard drinks of alcohol Types: 21 Cans of Beer (12oz) per week Drug use: Yes Comment: past use of crack and marijuana Review of Systems Objective There were no vitals taken for this visit. Physical Exam Constitutional: Appearance: Normal appearance. Abdominal: Tenderness: There is abdominal tenderness (right lower quadrant and left lower quadrant). Neurological: Mental Status: He is alert. Assessment and Plan ASSESSMENT/PLAN: 1. Lower abdominal pain - ICD9: 789.09, ICD10: R10.30 - Patient recently evaluated for abdominal pain Dx pancreatitis No BM x 3 days Lower abdominal pain Was prescribed Oxycontin SBO VS constipation No imaging or labs available Wednesday afternoon, Referred to ED Declines EMS Beba Cook APRN.CRUISE DIRECTOR documented in this [facility]11-15-[facility]24 NoteHNO ID: [id number] Author: BRIAN GIBSON APRN.ALYSSA Service: ? Author Type: Nurse Practitioner Type: Progress Notes Filed: 12/24/2023 10:42 Note Text: SUBJECTIVE Emma Vasquez is a 58 year old male here today for a check up on his medical problems. Chief Complaint Patient presents with: Recheck: [facility] for UTI and noted a high glucose level in urine with dip Anxiety continues and on CPAP for about 1 month without any change in the anxiety. Is waking up in middle of night and has trouble getting back to sleep HPI Emma Vasquez is a 58 year old male. He is an established patient. Here today for follow up. Last visit we discussed MICA, since that visit a month ago he has obtained a CPAP and is using it. After last visit he had an Xray for foot pain which noted mild arthritis. Since last visit he had neuropsych testing done that neurology had referred him for. They noted multiple factors contributing to memory issues including mental health history, cannabis use, anxiety, poor sleep. Referred to sleep med and psychology. He followed up with neuro and recommended the plan for follow up with sleep med, psychology, get hearing aides fixed. Waking at night with worry. Hearing aides fixed. Compliant with PAP therapy. Still getting used to this. Seen in [facility] for UTI. Glucose noted in urine on urine dip. Prior issues with IFG. His medications were reviewed today and his list is now up to date. Medications Current Outpatient Medications Medication Sig Cholecalciferol, Vitamin D3, 50 mcg (2,000 unit) cap Take 1 capsule by mouth once daily. metFORMIN (GLUCOPHAGE) 500 mg tablet Take 1 tablet by mouth two times a day with meals. DULoxetine (CYMBALTA) 30 mg capsule Take 1 capsule by mouth once daily. CPAP/BIPAP/OTHER Type .CPAPSettings into a note to see current settings/supplies/DME information. No current facility-administered medications for this visit. ALLERGIES Allergen Reactions Penicillins Unknown, Hives ACTIVE PROBLEM LIST Type 2 Diabetes Mellitus With Diabetic Polyneuropathy, Without Long-Term Current Use of Insulin (Hcc) - 12/24/2023 Anxiety and Depression - 12/24/2023 Hepatic Steatosis - 06/15/2023 Gallbladder Polyp - 06/15/2023 Vitamin D Deficiency - 06/15/2023 Mica (Obstructive Sleep Apnea) - 06/15/2023 Hypercholesterolemia - 05/22/2022 Moderate Episode of Recurrent Major Depressive Disorder (Hcc) - 04/01/2022 Multiple Renal Cysts - 04/01/2022 Primary Hypertension - 03/03/2022 Memory Difficulties - 03/03/2022 Internal Hemorrhoids - 03/03/2022 History of Colonic Polyps - 06/07/2017 Comment: 06/07/17 25 mm sessile polyp sigmoid colon. 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 Rec: 6mo follow up Tobacco Use - 05/12/2017 Social History Tobacco Use Smoking status: Every Day Current packs/day: 1.00 Average packs/day: 1 pack/day for 17.0 years (17.0 ttl pk-yrs) Types: Cigarettes Smokeless tobacco: Former Vaping Use Vaping status: Never Used Substance Use Topics Alcohol use: Yes Alcohol/week: 21.0 standard drinks of alcohol Types: 21 Cans of Beer (12oz) per week Drug use: Yes Comment: past use of crack and marijuana Review of Systems Respiratory: Negative. Cardiovascular: Negative. OBJECTIVE BP 124/100 Pulse 54 Wt 166 lb 10.7 oz (75.6kg) SpO2 97% Physical Exam Vitals and nursing note reviewed. Constitutional: General: He is awake. He is not in acute distress. Appearance: Normal appearance. He is well-developed and well-groomed. He is not ill-appearing, toxic-appearing or diaphoretic. HENT: Head: Normocephalic. Right Ear: External ear normal. Left Ear: External ear normal. Nose: Nose normal. Eyes: General: Vision grossly intact. Conjunctiva/sclera: Conjunctivae normal. Pupils: Pupils are equal, round, and reactive to light. Neck: Vascular: No JVD. Trachea: Trachea normal. Cardiovascular: Rate and Rhythm: Normal rate and regular rhythm. Pulses: Normal pulses. Heart sounds: Normal heart sounds. No murmur heard. Pulmonary: Effort: Pulmonary effort is normal. No accessory muscle usage, prolonged expiration or respiratory distress. Breath sounds: Normal breath sounds. Musculoskeletal: Cervical back: Neck supple. Skin: General: Skin is warm and dry. Capillary Refill: Capillary refill takes less than 2 seconds. Neurological: General: No focal deficit present. Mental Status: He is alert and oriented to person, place, and time. Mental status is at baseline. Psychiatric: Attention and Perception: Attention and perception normal. Mood and Affect: Mood and affect normal. Speech: Speech normal. Behavior: Behavior normal. Behavior is cooperative. Thought Content: Thought content normal. Cognition and Memory: Cognition normal. Judgment: Judgment normal. ASSESSMENT/PLAN: 1. Type 2 diabetes mellitus with diabetic polyneuropathy, without long-term current use of insulin ([facility]) - ICD9: 2 (more content not included)...[facility]11-15-2024 History of Present illness Narrative* Brian Gibson APRN.[facility] - 12/24/2023 10:08 AM EST SUBJECTIVE Emma Vasquez is a 58 year old male here today for a check up on his medical problems. Chief Complaint Patient presents with: Recheck: [facility] for UTI and noted a high glucose level in urine with dip Anxiety continues and on CPAP for about 1 month without any change in the anxiety. Is waking up in middle of night and has trouble getting back to sleep HPI Emma Vasquez is a 58 year old male. He is an established patient. Here today for follow up.Last visit we discussed MICA, since that visit a month ago he has obtained a CPAP and is using it. After last visit he had an Xray for foot pain which noted mild arthritis. Since last visit he had neuropsych testing done that neurology had referred him for. They noted multiple factors contributing to memory issues including mental health history, cannabis use, anxiety, poor sleep. Referred to sleep med and psychology. He followed up with neuro and recommended the plan for follow up with sleep med, psychology, get hearing aides fixed. Waking at night with worry. Hearing aides fixed. Compliant with PAP therapy. Still getting used to this. Seen in [facility] for UTI. Glucose noted in urine on urine dip. Prior issues with IFG. His medications were reviewed today and his list is now up to date. Medications Current Outpatient Medications Medication Sig Cholecalciferol, Vitamin D3, 50 mcg (2,000 unit) cap Take 1 capsule by mouth once daily. metFORMIN (GLUCOPHAGE) 500 mg tablet Take 1 tablet by mouth two times a day with meals. DULoxetine (CYMBALTA) 30 mg capsule Take 1 capsule by mouth once daily. CPAP/BIPAP/OTHER Type .CPAPSettings into a note to see current settings/supplies/DME information. No current facility-administered medications for this visit. ALLERGIES Allergen Reactions Penicillins Unknown, Hives ACTIVE PROBLEM LIST Type 2 Diabetes Mellitus With Diabetic Polyneuropathy, Without Long-Term Current Use of Insulin (Hcc) - 12/24/2023 Anxiety and Depression - 12/24/2023 Hepatic Steatosis - 06/15/2023 Gallbladder Polyp - 06/15/2023 Vitamin D Deficiency - 06/15/2023 Mica (Obstructive Sleep Apnea) - 06/15/2023 Hypercholesterolemia - 05/22/2022 Moderate Episode of Recurrent Major Depressive Disorder (Hcc) - 04/01/2022 Multiple Renal Cysts - 04/01/2022 Primary Hypertension - 03/03/2022 Memory Difficulties - 03/03/2022 Internal Hemorrhoids - 03/03/2022 History of Colonic Polyps - 06/07/2017 Comment: 06/07/17 25 mm sessile polyp sigmoid colon. 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 Rec: 6mo follow up Tobacco Use - 05/12/2017 Social History Tobacco Use Smoking status: Every Day Current packs/day: 1.00 Average packs/day: 1 pack/day for 17.0 years (17.0 ttl pk-yrs) Types: Cigarettes Smokeless tobacco: Former Vaping Use Vaping status: Never Used Substance Use Topics Alcohol use: Yes Alcohol/week: 21.0 standard drinks of alcohol Types: 21 Cans of Beer (12oz) per week Drug use: Yes Comment: past use of crack and marijuana Review of Systems Respiratory: Negative. Cardiovascular: Negative. OBJECTIVE BP 124/100 Pulse 54 Wt 166 lb 10.7 oz (75.6kg) SpO2 97% Physical Exam Vitals and nursing note reviewed. Constitutional: General: He is awake. He is not in acute distress. Appearance: Normal appearance. He is well-developed and well-groomed. He is not ill-appearing, toxic-appearing or diaphoretic. HENT: Head: Normocephalic. Right Ear: External ear normal. Left Ear: External ear normal. Nose: Nose normal. Eyes: General: Vision grossly intact. Conjunctiva/sclera: Conjunctivae normal. Pupils: Pupils are equal, round, and reactive to light. Neck: Vascular: No JVD. Trachea: Trachea normal. Cardiovascular: Rate and Rhythm: Normal rate and regular rhythm. Pulses: Normal pulses. Heart sounds: Normal heart sounds. No murmur heard. Pulmonary: Effort: Pulmonary effort is normal. No accessory muscle usage, prolonged expiration or respiratory distress. Breath sounds: Normal breath sounds. Musculoskeletal: Cervical back: Neck supple. Skin: General: Skin is warm and dry. Capillary Refill: Capillary refill takes less than 2 seconds. Neurological: General: No focal deficit present. Mental Status: He is alert and oriented to person, place, and time. Mental status is at baseline. Psychiatric: Attention and Perception: Attention and perception normal. Mood and Affect: Mood and affect normal. Speech: Speech normal. Behavior: Behavior normal. Behavior is cooperative. Thought Content: Thought content normal. Cognition and Memory: Cognition normal. Judgment: Judgment normal. ASSESSMENT/PLAN: 1. Type 2 diabetes mellitus with diabetic polyneuropathy, without long-term current use of insulin (HCC) - ICD9: 250.60, 357.2, ICD10: E11.42 (primary diagnosis) - New diagnosis - Start metformin - Counseled on healthy diet and regular exercise - Discussed need for and benefit of weight loss. BMI 26.10 kg/(m^2) - Spent time with the patient discussing how this diagnosis was made. Both current and past labs were reviewed with patient. Topics that were covered were the personal goals for weight, diet, blood pressure, cholesterol, what hemoglobin A1c means and what their goals are. Also discussed today were m edication compliance issues. Patient to call with any medication concerns or plan of care questions. Patient to notify office ifany worsening or new onset of polyuria, polydipsia, polyphagia, change in vision, numbness, hypoglycemia, CP, or N/V/D. Majority of visit spent counseling patient in preventative and disease state management. - CONSULT TO PODIATRY - METFORMIN 500 MG TABLET - DULOXETINE 30 MG CAPSULE,DELAYED RELEASE 2. Glucosuria - ICD9: 791.5, ICD10: R81 - HB A1C B/O 3. MICA (obstructive sleep apnea) - ICD9: 327.23, ICD10: G47.33 He has started using his CPAP, compliant with therapy, still getting used to this. Has been using for about 30 days. 4. Primary hypertension - ICD9: 401.9, ICD10: I10 - Worsening control - Recommend home blood pressure monitoring, to bring results to next visit - Encouraged sodium restriction, DASH or Mediterranean diet - Recommend regular aerobic exercise - Discussed need for and benefit of weight loss. BMI 26.10 kg/(m^2) 5. Bilateral foot pain - ICD9: 729.5, ICD10: M79.671, M79.672 Referral to podiatry, suspect neuropathy and arthritis contributing. 6. Hearing impaired person, bilateral - ICD9: 389.9, ICD10: H91.93 Getting used to hearing aides. 7. Anxiety and depression - ICD9: 300.00, 311, ICD10: F41.9, F32.A Start Cymbalta. Discussed new medication including but not limited to reason for use, possible sideeffects, administration, signs and symptoms to monitor for and when to seek medical attention. - DULOXETINE 30 MG CAPSULE,DELAYED RELEASE 8. Memory difficulties - ICD9: 780.93, ICD10: R41.3 Multifactorial. Portions of this note have been entered by ancillary staff. I have reviewed and when necessary edited, so that they are an adequate record of my encounter with this patient Please note that parts of this document were created using voice recognition software and therefore may contain grammatical errors. Patient verbalizes understanding of instructions from today's visit and in agreement with treatmentplan. Questions answered. Agrees to call the office if questions, concerns of issues with acute symptoms not improving or if they worsen. See diagnoses and orders for additional plan(s). Allergies and medications were reviewed, list was updated, and refills given if needed. Past medical, surgical, social, and family history reviewed and updated as appropriate. Encouraged proper diet & exercise as well as compliance with taking medications. Age- appropriate health preventative measures were discussed. Return in about 4 weeks (around 01/21/2024) for recheck on new medication.. Brian Gibson APRN-ALYSSA [facility] encounter Note * Telephone Encounter - Brian Gibson APRN.CNP - 12/21/2023 4:27 PM EST Noted. Discuss at visit Wednesday. [facility] Miscellaneous Notes* Telephone Encounter - Brian Gibson APRN.CNP - 12/21/2023 4:27 PM EST Noted. Discuss at visit Wednesday. * Telephone Encounter - Sofiya Arguello RN - 12/21/2023 4:24 PM EST Pt states he is returning a call from [facility]. Reports he was just seen in [facility], and prescribed AB for UTI. Pt reports his urine lab showed high glucose. No messages noted in chart. Pt has appt on Wednesday with Brian. [facility] Telephone encounter Note * Telephone Encounter - Sofiya Arguello RN - 12/21/2023 4:24 PM EST Pt states he is returning a call from [facility]. Reports he was just seen in [facility], and prescribed AB for UTI. Pt reports his urine lab showed high glucose. No messages noted in chart. Pt has appt on Wednesday with Brian. [facility]24 NoteHNO ID: [id number] Author: HAYDEN CONNER APRN.CRUISE DIRECTOR Service: ? Author Type: Nurse Practitioner Type: Progress Notes Filed: 12/21/2023 16:07 Note Text: Subjective HPI Nontoxic-appearing male presents urgent care chief complaint possible UTI. Duration of symptoms 1 day. Associated symptoms dysuria. OTC medications none. History of UTIs. No penile discharge testicular pain scrotal swelling hematuria. No concerns for STDs. Past medical history prescription medications allergies reviewed. .Patient presents with: Urinary Problem: pain with urination x 1 day PAST MEDICAL HISTORY Diagnosis Date Essential hypertension Hemorrhoids History of colonic polyps 06/07/2017 06/07/17 25 mm sessile polyp sigmoid colon. 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 Rec: 6mo follow up Hypercholesterolemia 05/22/2022 Moderate episode of recurrent major depressive disorder (HCC) 04/01/2022 Multiple renal cysts 04/01/2022 Primary hypertension 03/03/2022 Smoker Tobacco use 05/12/2017 PAST SURGICAL HISTORY Procedure Laterality Date COLONOSCOPY FLX DX W/COLLJ SPEC WHEN PFRMD 06/07/2017 Colonoscopy ALLERGIES Penicillins MEDICATIONS CPAP/BIPAP/OTHER Type .CPAPSettings into a note to see current settings/supplies/DME information. Cholecalciferol, Vitamin D3, 50 mcg (2,000 unit) cap Take 1 capsule by mouth once daily. (Patient not taking: Reported on 09/20/2023) FAMILY HISTORY Problem Relation Age of Onset Diabetes Mother Heart Father Hypertension Father Social History Tobacco Use Smoking status: Every Day Current packs/day: 1.00 Average packs/day: 1 pack/day for 17.0 years (17.0 ttl pk-yrs) Types: Cigarettes Smokeless tobacco: Former Vaping Use Vaping status: Never Used Substance Use Topics Alcohol use: Yes Alcohol/week: 21.0 standard drinks of alcohol Types: 21 Cans of Beer (12oz) per week Drug use: Yes Comment: past use of crack and marijuana BP 130/78 Pulse 90 Temp 36.4 ?C (97.6 ?F) Resp 16 Wt 78.3 kg (172 lb 9.9 oz) SpO2 96% BMI 27.04 kg/m? Review of Systems Constitutional: Negative for chills, fever and malaise/fatigue. Cardiovascular: Negative for chest pain. Gastrointestinal: Negative for abdominal pain, constipation, diarrhea, nausea and vomiting. Genitourinary: Positive for dysuria. Negative for flank pain, frequency, hematuria and urgency. Musculoskeletal: Negative for myalgias. Objective Physical Exam Vitals and nursing note reviewed. Constitutional: General: He is not in acute distress. Appearance: He is not diaphoretic. HENT: Head: Jaw: No trismus. Right Ear: Hearing normal. No decreased hearing noted. No drainage, swelling or tenderness. Tympanic membrane is not perforated, erythematous or bulging. Left Ear: Hearing normal. No decreased hearing noted. No drainage, swelling or tenderness. Tympanic membrane is not perforated, erythematous or bulging. Mouth/Throat: Pharynx: Uvula midline. No uvula swelling. Tonsils: No tonsillar abscesses. Cardiovascular: Rate and Rhythm: Normal rate and regular rhythm. Pulses: Normal pulses. Pulmonary: Effort: Pulmonary effort is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 05/22/2022 Moderate Episode of Recurrent Major Depressive Disorder (Hcc) - 04/01/2022 Multiple Renal Cysts - 04/01/2022 Primary Hypertension - 03/03/2022 Memory Difficulties - 03/03/2022 Internal Hemorrhoids - 03/03/2022 History of Colonic Polyps - 06/07/2017 Comment: 06/07/17 25 mm sessile polyp sigmoid colon. 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 Rec: 6mo follow up Tobacco Use - 05/12/2017 Social History Tobacco Use Smoking status: Every Day Current packs/day: 1.00 Average packs/day: 1 pack/day for 17.0 years (17.0 ttl pk-yrs) Types: Cigarettes Smokeless tobacco: Former Vaping Use Vaping status: Never Used Substance Use Topics Alcohol use: Yes Alcohol/week: 21.0 standard drinks of alcohol Types: 21 Cans of Beer (12oz) per week Drug use: Yes Comment: past use of crack and marijuana Review of Systems Constitutional: Positive for fatigue. Respiratory: Negative. Cardiovascular: Negative. OBJECTIVE BP 125/79 Pulse 103 Wt 170 lb 13.7 oz (77.5kg) SpO2 97% Physical Exam Vitals and nursing note reviewed. Constitutional: General: He is awake. He is not in acute distress. Appearance: Normal appearance. He is well-developed and well-groomed. He is not ill-appearing, toxic-appearing or diaphoretic. HENT: Head: Normocephalic. Right Ear: External ear normal. Decreased hearing noted. Left Ear: External ear normal. Decreased hearing noted. Nose: Nose normal. Eyes: General: Vision grossly intact. Conjunctiva/sclera: Conjunctivae normal. Pupils: Pupils are equal, round, and reactive to light. Neck: Vascular: No JVD. Trachea: Trachea normal. Cardiovascular: Rate and Rhythm: Normal rate and regular rhythm. Pulses: Normal pulses. Heart sounds: Normal heart sounds. No murmur heard. Pulmonary: Effort: Pulmonary effort is normal. No accessory muscle usage, prolonged expiration or respiratory distress. Breath sounds: Normal breath sounds. Musculoskeletal: Cervical back: Neck supple. Skin: General: Skin is warm and dry. Capillary Refill: Capillary refill takes less than 2 seconds. Neurological: General: No focal deficit present. Mental Status: He is alert and oriented to person, place, and time. Mental status is at baseline. Psychiatric: Attention and Perception: Attention and perception normal. Mood and Affect: Mood and affect normal. Speech: Speech normal. Behavior: Behavior normal. Behavior is cooperative. Thought Content: Thought content normal. Cognition and Memory: Cognition normal. Memory is impaired. Judgment: Judgment normal. ASSESSMENT/PLAN: 1. MICA (obstructive sleep apnea) - ICD9: 327.23, ICD10: G47.33 (primary diagnosis) Insurance prefers to have a titration study done to set up CPAP, planning to do this at [facility]. Orders sent today. - PAP TITRATION PSG (CPAP, BIPAP, ASV) 2. Chronic fatigue - ICD9: 780.79, ICD10: R53.82 Suspect this is in part stemming from MICA that has been untreated. 3. Primary hypertension - ICD9: 401.9, ICD10: I10 - Controlled - Recommend home blood pressure monitoring, to bring results to next visit (more content not included)...[facility]09-11-20[facility] History of Present illness Narrative* Brian Gibson APRN.CRUISE DIRECTOR - 2023 2:52 PM EDT SUBJECTIVE Emma Vasquez is a 57 year old male here today for a check up on his medical problems. Chief Complaint Patient presents with: Recheck: discuss medication as he is currently not taking anything. elevated blood pressure continues HPI Emma Vasquez is a 57 year old male. He is an established patient. Here today for follow up.Checking blood pressure at home, not taking medications at this time. Had issues with constipation while taking them and since stopping medication this has resolved. Still tired, fatigued during the day. Smoking about a pack per day. Has not done titration study for sleep apnea to get CPAP. Issues with memory loss and impairment, mild cognitive impairment, hearing difficulty. Concerned about working with being fatigued, hearing impaired. Had evaluation done. Working on getting disability/socialsecurity. Seen with neurology and has follow up with them, also following up with neuropsych. His medications were reviewed today and his list is now up to date. Medications Current Outpatient Medications Medication Sig CPAP/BIPAP/OTHER Type .CPAPSettings into a note to see current settings/supplies/DME information. (Patient not taking: Reported on 09/20/2023) Cholecalciferol, Vitamin D3, 50 mcg (2,000 unit) cap Take 1 capsule by mouth once daily. (Patient not taking: Reported on 09/20/2023) No current facility-administered medications for this visit. ALLERGIES Allergen Reactions Penicillins Unknown, Hives ACTIVE PROBLEM LIST Hepatic Steatosis - 06/15/2023 Gallbladder Polyp - 06/15/2023 Vitamin D Deficiency - 06/15/2023 Mica (Obstructive Sleep Apnea) - 06/15/2023 Hypercholesterolemia - 05/22/2022 Moderate Episode of Recurrent Major Depressive Disorder (Hcc) - 04/01/2022 Multiple Renal Cysts - 04/01/2022 Primary Hypertension - 03/03/2022 Memory Difficulties - 03/03/2022 Internal Hemorrhoids - 03/03/2022 History of Colonic Polyps - 06/07/2017 Comment: 06/07/17 25 mm sessile polyp sigmoid colon. 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 Rec: 6mo follow up Tobacco Use - 05/12/2017 Social History Tobacco Use Smoking status: Every Day Current packs/day: 1.00 Average packs/day: 1 pack/day for 17.0 years (17.0 ttl pk-yrs) Types: Cigarettes Smokeless tobacco: Former Vaping Use Vaping status: Never Used Substance Use Topics Alcohol use: Yes Alcohol/week: 21.0 standard drinks of alcohol Types: 21 Cans of Beer (12oz) per week Drug use: Yes Comment: past use of crack and marijuana Review of Systems Constitutional: Positive for fatigue. Respiratory: Negative. Cardiovascular: Negative. OBJECTIVE BP 125/79 Pulse 103 Wt 170 lb 13.7 oz (77.5kg) SpO2 97% Physical Exam Vitals and nursing note reviewed. Constitutional: General: He is awake. He is not in acute distress. Appearance: Normal appearance. He is well-developed and well-groomed. He is not ill-appearing, toxic-appearing or diaphoretic. HENT: Head: Normocephalic. Right Ear: External ear normal. Decreased hearing noted. Left Ear: External ear normal. Decreased hearing noted. Nose: Nose normal. Eyes: General: Vision grossly intact. Conjunctiva/sclera: Conjunctivae normal. Pupils: Pupils are equal, round, and reactive to light. Neck: Vascular: No JVD. Trachea: Trachea normal. Cardiovascular: Rate and Rhythm: Normal rate and regular rhythm. Pulses: Normal pulses. Heart sounds: Normal heart sounds. No murmur heard. Pulmonary: Effort: Pulmonary effort is normal. No accessory muscle usage, prolonged expiration or respiratory distress. Breath sounds: Normal breath sounds. Musculoskeletal: Cervical back: Neck supple. Skin: General: Skin is warm and dry. Capillary Refill: Capillary refill takes less than 2 seconds. Neurological: General: No focal deficit present. Mental Status: He is alert and oriented to person, place, and time. Mental status is at baseline. Psychiatric: Attention and Perception: Attention and perception normal. Mood and Affect: Mood and affect normal. Speech: Speech normal. Behavior: Behavior normal. Behavior is cooperative. Thought Content: Thought content normal. Cognition and Memory: Cognition normal. Memory is impaired. Judgment: Judgment normal. ASSESSMENT/PLAN: 1. MICA (obstructive sleep apnea) - ICD9: 327.23, ICD10: G47.33 (primary diagnosis) Insurance prefers to have a titration study done to set up CPAP, planning to do this at [facility]. Orderssent today. - PAP TITRATION PSG (CPAP, BIPAP, ASV) 2. Chronic fatigue - ICD9: 780.79, ICD10: R53.82 Suspect this is in part stemming from MICA that has been untreated. 3. Primary hypertension - ICD9: 401.9, ICD10: I10 - Controlled - Recommend home blood pressure monitoring, to bring results to next visit - Encouraged sodium restriction, DASH or Mediterranean diet - Recommend regular aerobic exercise 4. Tobacco use - ICD9: 305.1, ICD10: Z72.0 - Cessation encouraged. - Physiologic and physical aspects of tobacco addiction as well as strategies for quitting were discussed. - Counseling was given focusing on the harmful effects of this addiction especially given the patient's medical condition(s) which will be worsened because of the chemicals in tobacco. 5. Memory difficulties - ICD9: 780.93, ICD10: R41.3 Follow up with neuro and neuropsychology 6. Mild cognitive impairment - ICD9: 331.83, ICD10: G31.84 See #5 7. Hearing impaired person, bilateral - ICD9: 389.9, ICD10: H91.93 Follow up with audiology, seeing someone local in [place] Portions of this note have been entered by ancillary staff. I have reviewed and when necessary edited, so that they are an adequate record of my encounter with this patient Please note that parts of this document were created using voice recognition software and therefore may contain grammatical errors. Patient verbalizes understanding of instructions from today's visit and in agreement with treatmentplan. Questions answered. Agrees to call the office if questions, concerns of issues with acute symptoms not improving or if they worsen. See diagnoses and orders for additional plan(s). Allergies and medications were reviewed, list was updated, and refills given if needed. Past medical, surgical, social, and family history reviewed and updated as appropriate. Encouraged proper diet & exercise as well as compliance with taking medications. Age- appropriate health preventative measures were discussed. Return in about 2 months (around 12/20/2023) for Follow up on chronic conditions and medications.. Brian Gibson APRN-ALYSSA [facility] Telephone encounter Note * Telephone Encounter - Mary Beth Arteaga LPN - 2023 11:38 AM EDT A message was left for Dr. Callaway asking for a fax number to request records from exam provided to patient on 09/06/23. [facility]08-12-[facility]24 NoteHNO ID: [id number] Author: CARMELLA MAYFIELD APRN.[facility] Service: ? Author Type: Nurse Practitioner Type: Progress Notes Filed: 09/20/2023 14:04 Note Text: Subjective Patient came in and complaints of dog bite on his left abdomen. Patient says this happened yesterday afternoon. Patient says it was his friend's dog who is up-to-date on all shots. Patient says it just gets nervous with strangers. Patient denies any pain redness warmth or drainage at the site. Denies any other symptoms. The history is provided by the patient. No humanities and languages professor was used. Review of Systems Constitutional: Negative. Skin: Negative. Objective Physical Exam Constitutional: Appearance: Normal appearance. Pulmonary: Effort: Pulmonary effort is normal. Abdominal: Comments: Red area sewell scabbed area where tooth may have scratched abdomen. Purple area sewell bruising. No redness warmth or swelling or drainage noted at the site. Neurological: Mental Status: He is alert. PAST MEDICAL HISTORY No date: Essential hypertension No date: Hemorrhoids 06/07/2017: History of colonic polyps Comment: 06/07/17 25 mm sessile polyp sigmoid colon. 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 Rec: 6mo follow up 05/22/2022: Hypercholesterolemia 04/01/2022: Moderate episode of recurrent major depressive disorder (HCC) 04/01/2022: Multiple renal cysts 03/03/2022: Primary hypertension No date: Smoker 05/12/2017: Tobacco use PAST SURGICAL HISTORY 06/07/2017: COLONOSCOPY FLX DX W/COLLJ SPEC WHEN PFRMD Comment: Colonoscopy ALLERGIES Penicillins MEDICATIONS CPAP/BIPAP/OTHER Type .CPAPSettings into a note to see current settings/supplies/DME information. (Patient not taking: Reported on 09/20/2023) atorvastatin (LIPITOR) 20 mg tablet Take 1 tablet by mouth once daily. (Patient not taking: Reported on 09/20/2023) Cholecalciferol, Vitamin D3, 50 mcg (2,000 unit) cap Take 1 capsule by mouth once daily. (Patient not taking: Reported on 09/20/2023) amLODIPine (NORVASC) 5 mg tablet Take 1 tablet by mouth once daily. (Patient not taking: Reported on 09/20/2023) varenicline (CHANTIX STARTING MONTH BOX) 0.5 mg (11)- 1 mg (42) tablet Take 0.5 mg by mouth once daily on Days 1 through 3, THEN 0.5 mg twice daily on Days 4 through 7, THEN 1 mg twice daily on Day 8 and thereafter (Patient not taking: Reported on 09/20/2023) varenicline (CHANTIX CONTINUING MONTH BOX) 1 mg tablet Take 1 tablet by mouth two times a day with meals. Patient should start on July 06, 2023. FAMILY HISTORY Problem Relation Age of Onset Diabetes Mother Heart Father Hypertension Father Social History Tobacco Use Smoking status: Every Day Packs/day: 1.00 Years: 17.00 Additional pack years: 0.00 Total pack years: 17.00 Types: Cigarettes Smokeless tobacco: Former Vaping Use Vaping Use: Never used Substance Use Topics Alcohol use: Yes Alcohol/week: 21.0 standard drinks of alcohol Types: 21 Cans of Beer (12oz) per week Drug use: Yes Comment: past use of crack and marijuana ASSESSMENT/PLAN: 1. Puncture wound - ICD9: 879.8, ICD10: T14.8XXA At this time wound does not appear to be infected. Patient was instructed to keep it clean and dry and wash with an antibacterial soap. Patient was instructed to watch for redness warmth swelling pain drainage and follow-up if anything changes or worsens. Patient was okay with this care plan. Carmella Mayfield APRN.[facility]08-12-2024 History of Present illness Narrative* Carmella Mayfield APRN.CRUISE DIRECTOR - 09/20/2023 2:01 PM EDT Images from the original note were not included. Subjective Patient came in and complaints of dog bite on his left abdomen. Patient says this happened yesterday afternoon. Patient says it was his friend's dog who is up-to-date on all shots. Patient says it just gets nervous with strangers. Patient denies any pain redness warmth or drainage at the site. Denies any other symptoms. The history is provided by the patient. No humanities and languages professor was used. Review of Systems Constitutional: Negative. Skin: Negative. Objective Physical Exam Constitutional: Appearance: Normal appearance. Pulmonary: Effort: Pulmonary effort is normal. Abdominal: Comments: Red area sewell scabbed area where tooth may have scratched abdomen. Purple area sewell bruising. No redness warmth or swelling or drainage noted at the site. Neurological: Mental Status: He is alert. PAST MEDICAL HISTORY No date: Essential hypertension No date: Hemorrhoids 06/07/2017: History of colonic polyps Comment: 06/07/17 25 mm sessile polyp sigmoid colon. 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 Rec: 6mo follow up 05/22/2022: Hypercholesterolemia 04/01/2022: Moderate episode of recurrent major depressive disorder (HCC) 04/01/2022: Multiple renal cysts 03/03/2022: Primary hypertension No date: Smoker 05/12/2017: Tobacco use PAST SURGICAL HISTORY 06/07/2017: COLONOSCOPY FLX DX W/COLLJ SPEC WHEN PFRMD Comment: Colonoscopy ALLERGIES Penicillins MEDICATIONS CPAP/BIPAP/OTHER Type .CPAPSettings into a note to see current settings/supplies/DME information. (Patient not taking: Reported on 09/20/2023) atorvastatin (LIPITOR) 20 mg tablet Take 1 tablet by mouth once daily. (Patient not taking: Reported on 09/20/2023) Cholecalciferol, Vitamin D3, 50 mcg (2,000 unit) cap Take 1 capsule by mouth once daily. (Patient not taking: Reported on 09/20/2023) amLODIPine (NORVASC) 5 mg tablet Take 1 tablet by mouth once daily. (Patient not taking: Reported on 09/20/2023) varenicline (CHANTIX STARTING MONTH BOX) 0.5 mg (11)- 1 mg (42) tablet Take 0.5 mg by mouth once daily on Days 1 through 3, THEN 0.5 mg twice daily on Days 4 through 7, THEN 1 mg twice daily on Day 8and thereafter (Patient not taking: Reported on 09/20/2023) varenicline (CHANTIX CONTINUING MONTH BOX) 1 mg tablet Take 1 tablet by mouth two times a day with meals. Patient should start on July 06, 2023. FAMILY HISTORY Problem Relation Age of Onset Diabetes Mother Heart Father Hypertension Father Social History Tobacco Use Smoking status: Every Day Packs/day: 1.00 Years: 17.00 Additional pack years: 0.00 Total pack years: 17.00 Types: Cigarettes Smokeless tobacco: Former Vaping Use Vaping Use: Never used Substance Use Topics Alcohol use: Yes Alcohol/week: 21.0 standard drinks of alcohol Types: 21 Cans of Beer (12oz) per week Drug use: Yes Comment: past use of crack and marijuana ASSESSMENT/PLAN: 1. Puncture wound - ICD9: 879.8, ICD10: T14.8XXA At this time wound does not appear to be infected. Patient was instructed to keep it clean and dry and wash with an antibacterial soap. Patient was instructed to watch for redness warmth swelling pain drainage and follow-up if anything changes or worsens. Patient was okay with this care plan. Carmella Mayfield APRN.[facility]SSA [facility] Instructions* Patient Instructions* Claudine Calderon PA-C - 08/24/2023 11:51 AM EDT Increase water intake, hearing aids, sleep test as scheduled Neuropsychological testing to further test your memory Follow up after testing [facility]24 NoteHNO ID: [id number] Author: CLAUDINE CALDERON PA-C Service: ? Author Type: Physician Security Alarm Installer Type: Progress Notes Filed: 08/24/2023 12:18 Note Text: ESTABLISHED PATIENT VISIT Last visit: 03/31/22 Assessment AND Plan: Emma Vasquez is a 56 year old left-handed male with a history of hypertension, 12 year crack cocaine use, depression. His examination demonstrates hearing loss. MoCA of 21/30 but with noted hearing difficulties of the test. Mild asymmetry of smile, patient believes this to be chronic, denies any incidence of stroke. Patient with gradual worsening of short-term memory over the last 5 years, worse over the last year. 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 Patient endorses history of likely sleep apnea in the past, never followed up with sleep study, snoring has worsened over the last few years and patient notes that he only gets about 5 hours of sleep at night. Patient also with history of depression, currently taking Wellbutrin but does not believe this is helping. Patient with signs and symptoms of mild cognitive impairment, however patient with hearing difficulty on exam and noticeable depression which may likely be contributing. Patient also with vitamin D level of 20, notes that this is being supplemented through primary care. Additionally, patient with history of sleep apnea, but never had official sleep test as he never had this done, will refer to sleep medicine. Due to difficulty hearing throughout interview and MoCA, will refer to ENT and have audiology testing done. Regarding his depression, primary care manages this and patient notes he has an appointment tomorrow. Encouraged patient to talk about this at his appointment tomorrow, as depression likely contributes to his memory. At this time, clear etiology of patient's memory issues is not apparent, may be multifactorial including depression, lack of sleep, hearing loss. Patient also with 12-year history of crack cocaine use which may be contributing as well. No signs or symptoms of Parkinson's on exam, no history of stroke, patient denies any personality change, however, notes that his friend recently told him that he has become meaner lately. Patient was not overtly inappropriately emotional throughout MoCA or exam, did notice some depression. We will have patient complete additional neuropsychological testing as MoCA was consistent for , patient still driving. Educated on driving cessation until further work-up is done, patient acknowledged understanding to this. Will obtain MRI of the brain with volumetric analysis to look for signs of dementia, rule out any stroke. Patient agreeable to treatment plan of care at this time, all questions were answered. Patient to follow-up in 3 months or sooner should any symptoms change or worsen. Emma was seen today for new patient. Diagnoses and all orders for this visit: Mild cognitive impairment Hearing difficulty of both ears - CONSULT TO ENT; Future - HEARING TEST/AUDIOGRAM Snoring - CONSULT TO SLEEP MEDICINE - ADULT; Future Memory loss - NEUROPSYCHOLOGICAL TESTING CONSULT Dementia without behavioral disturbance (HCC) - MRI BRAIN WO IVCON; Future He should return to see me in 3 months. I spent a total of 55 minutes on the date of the service which included preparing to see the patient, [id number] patient care, completing clinical documentation, obtaining and/or reviewing separately obtained history, performing a medically appropriate examination, counseling and educating the patient/family/caregiver, and ordering medications, tests, or procedures. Claudine Calderon PA-C [facility] CHIEF COMPLAINT: follow up HISTORY OF PRESENT ILLNESS: Emma Vasquez is a 57 year old male, There were no vitals taken for this visit. with a PMH significant for hypertension, 12 year crack cocaine use, depression. Last seen 03/31/22 for MCI, gradual short term memory concerns over the last five years. Has moderate sleep apnea and depression. MRI wnl. Did refer to ENT for audiology testing and hearing loss. Also history of crack-cocaine use for 12 years. MoCA was and neuropsych testing ordered. Patient presents for follow-up for memory loss. Notes that since last appointment he driving back to work but states he keeps forgetting what he is doing middle doing it. Has some difficulties focusing on the job. Still driving without an issue, not getting lost, no accidents or tickets. No falls since last appointment. Does not drink much water and primarily drinks energy drinks. No weight change or appetite change. He still very active and working. Notes that his sleep is very poor, has difficulty staying asleep at night, wakes up multiple times and has a hard time falling back asleep. Does snore and does have a dry mouth when h (more content not included)...[facility] 08-24-2023 History of Present illness Narrative* Claudine Calderon PA-C - 08/24/2023 11:21 AM EDT ESTABLISHED PATIENT VISIT Last visit: 03/31/22 Assessment & Plan: Emma Vasquez is a 56 year old left-handed male with a history of hypertension, 12 year crack cocaine use, depression. His examination demonstrates hearing loss. MoCA of but with noted hearing difficulties of the test. Mild asymmetry of smile, patient believes this to be chronic, denies any incidence of stroke. Patient with gradual worsening of short-term memory over the last 5 years, worse over the last year. Has had to quit many jobs, latest including [employer], because he could not remember the instructions or where things go. Patient endorses history of likely sleep apnea in the past, never followed up with sleep study, snoring has worsened over the last few years and patient notes that he only gets about 5 hours of sleep at night. Patient also with history of depression, currently taking Wellbutrin but does not believe this is helping. Patient with signs and symptoms of mild cognitive impairment, however patient with hearing difficulty on exam and noticeable depression which may likely be contributing. Patient also with vitamin D level of 20, notes that this is being supplemented through primary care. Additionally, patient with history of sleep apnea, but never had official sleep test yvette never had this done, will refer to sleep medicine. Due to difficulty hearing throughout interview and MoCA, will refer to ENT and have audiology testing done. Regarding his depression, primary care manages this and patient notes he has an appointment tomorrow. Encouraged patient to talk about this at his appointment tomorrow, as depression likely contributes to his memory. At this time, clear etiology of patient's memory issues is not apparent, may be multifactorial including depression, lack of sleep, hearing loss. Patient also with 12-year history of crack cocaine use which may be contributing as well. No signs or symptoms of Parkinson's on exam, no history of stroke, patient denies any personality change, however, notes that his friend recently told him that he has become meaner lately. Patient was not overtly inappropriately emotional throughout MoCA or exam, did notice some depression. We will have patient complete additional neuropsychological testing as MoCA was consistent for , patient still driving. Educated on driving cessation until further work-up is done, patient acknowledged understanding to this. Will obtain MRI of the brain with volumetric analysis to look for signs of dementia, rule out any stroke. Patient agreeable to treatment plan of care at this time, all questions were answered. Patient to follow-up in 3 months or sooner should any symptoms change or worsen. Emma was seen today for new patient. Diagnoses and all orders for this visit: Mild cognitive impairment Hearing difficulty of both ears - CONSULT TO ENT; Future - HEARING TEST/AUDIOGRAM Snoring - CONSULT TO SLEEP MEDICINE - ADULT; Future Memory loss - NEUROPSYCHOLOGICAL TESTING CONSULT Dementia without behavioral disturbance (HCC) - MRI BRAIN WO IVCON; Future He should return to see me in 3 months. I spent a total of 55 minutes on the date of the service which included preparing to see the patient, [id number] patient care, completing clinical documentation, obtaining and/or reviewing separately obtained history, performing a medically appropriate examination, counseling and educating the pat ient/family/caregiver, and ordering medications, tests, or procedures. Claudine Calderon PA-C [facility] CHIEF COMPLAINT: follow up HISTORY OF PRESENT ILLNESS: Emma Vasquez is a 57 year old male, There were no vitals taken for this visit. with a PMH significant for hypertension, 12 year crack cocaine use, depression. Last seen 03/31/22 for MCI, gradual short term memory concerns over the last five years. Has moderate sleep apnea and depression. MRI wnl. Did refer to ENT for audiology testing and hearing loss. Alsohistory of crack-cocaine use for 12 years. MoCA was and neuropsych testing ordered. Patient presents for follow-up for memory loss. Notes that since last appointment he driving back to work but states he keeps forgetting what he is doing middle doing it. Has some difficulties focusing on the job. Still driving without an issue, not getting lost, no accidents or tickets. No falls since last appointment. Does not drink much water and primarily drinks energy drinks. No weight change or appetite change. He still very active and working. Notes that his sleep is very poor, has difficulty staying asleep at night, wakes up multiple times and has a hard time falling back asleep. [place] and does have a dry mouth when he wakes up. Has a sleep study scheduled for the end of the yea r. Was unable to schedule the neuropsychological testing. Was able to have his hearing tested and is scheduled to have hearing aids later this month. No new concerns. REVIEW OF SYSTEMS GENERAL:No weight loss, malaise or fevers. HEENT:Negative for frequent or significant headaches, No changes in hearing or vision, no nose bleeds or other nasal problems NECK:Negative for lumps, goiter, pain and significant neck swelling RESPIRATORY: Negative for cough, wheezing or shortness of breath. CARDIOVASCULAR: Negative for chest pain, leg swelling or palpitations. GASTROINTESTINAL: Negative for abdominal discomfort, blood in stools or black stools or change in bowel habits GENITOURINARY: No history of dysuria, frequency or incontinence MUSCULOSKELETAL: Negative for joint pain or swelling, back pain or muscle pain. NEUROLOGIC:Negative for focal numbness or weakness, headaches and dizziness or syncope, vision changes, speech/languag changes - EXCEPT that as per HPI above. SKIN:Negative for lesions, rash, and itching. PSYCHIATRIC: Negative for sleep disturbance, mood disorder and recent psychosocial stressors. HEMATOLOGIC/LYMPHATIC/IMMUNOLOGIC:Negative for prolonged bleeding, bruising easily or swollen nodes. ENDOCRINE: Negative for cold or heat intolerance, polyuria, polydipsia and goiter. The remainder of the ROS was reviewed and is negative. LAB/IMAGING: Those performed since patient's last visit have been reviewed. MRI brain 04/29/22 IMPRESSION: * Normal MRI brain. * No evidence of an acute intracranial process or intracranial mass. * No generalized volume loss. * Hippocampal volumes at the 93 percentile when compared to age matched normal controls by quantitative analysis. * No appreciable white matter disease. * No evidence of parenchymal microhemorrhages by MRI. MEDICATIONS: CPAP/BIPAP/OTHER Type .CPAPSettings into a note to see current settings/supplies/DME information. atorvastatin (LIPITOR) 20 mg tablet Take 1 tablet by mouth once daily. Cholecalciferol, Vitamin D3, 50 mcg (2,000 unit) cap Take 1 capsule by mouth once daily. amLODIPine (NORVASC) 5 mg tablet Take 1 tablet by mouth once daily. varenicline (CHANTIX STARTING MONTH BOX) 0.5 mg (11)- 1 mg (42) tablet Take 0.5 mg by mouth once daily on Days 1 through 3, THEN 0.5 mg twice daily on Days 4 through 7, THEN 1 mg twice daily on Day 8and thereafter varenicline (CHANTIX CONTINUING MONTH BOX) 1 mg tablet Take 1 tablet by mouth two times a day with meals. Patient should start on July 06, 2023. HISTORIES PAST MEDICAL HISTORY Diagnosis Date Essential hypertension Hemorrhoids History of colonic polyps 06/07/2017 06/07/17 25 mm sessile polyp sigmoid colon. 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 Rec: 6mo follow up Hypercholesterolemia 05/22/2022 Moderate episode of recurrent major depressive disorder (HCC) 04/01/2022 Multiple renal cysts 04/01/2022 Primary hypertension 03/03/2022 Smoker Tobacco use 05/12/2017 FAMILY HISTORY Problem Relation Age of Onset Diabetes Mother Heart Father Hypertension Father SOCIAL HISTORY Social History Tobacco Use Smoking status: Every Day Packs/day: 1.00 Years: 17.00 Additional pack years: 0.00 Total pack years: 17.00 Types: Cigarettes Smokeless tobacco: Former Vaping Use Vaping Use: Never used Substance Use Topics Alcohol use: Yes Alcohol/week: 21.0 standard drinks of alcohol Types: 21 Cans of Beer (12oz) per week Drug use: Yes Comment: past use of crack and marijuana PHYSICAL EXAMINATION BP 156/98 (BP Site: Left Arm, BP Position: Sitting) Pulse 90 Resp 18 Wt 77.6 kg (171 lb) SpO2 93% BMI 26.78 kg/m Medical: Visual-spatial: 04/12 Namin/3 Attention: 04/13 Language: 02/10 Abstraction: 2 Delayed recall: 0 Orientation: 07/14 Hearing loss GENERAL EXAM: General appearance: NAD, pleasant. HEENT: NC/AT, nasal congestion absent, no oral lesions, membranes moist. NECK: No masses, supple. Lungs: Breathing comfortably Extr: Moves all extremities without difficulty Skin: Cool to touch. No rash. NEUROLOGICAL EXAM: General: Awake, alert, oriented x3 (person,place,time), speech fluent, no dysarthria; comprehension, naming, repetition intact. See moca above. CN: PERRL, EOMI and without nystagmus, VFF to confrontation, facial sensation and strength are normal and symmetric, hearing is intact to finger rub bilaterally, palate and tongue movements are intact and symmetric. SCM and trapezius strength normal. Motor: Normal tone, bulk Coordination: No tremors. Sensation: No evidence of neglect. Gait: Narrow based and stable with normal stride and arm swing. Assessment and Plan: ASSESSMENT/PLAN: 1. Memory loss - ICD9: 780.93, ICD10: R41.3 (primary diagnosis) 2. Hearing difficulty of both ears - ICD9: 389.9, ICD10: H91.93 3. Snoring - ICD9: 786.09, ICD10: R06.83 4. Mild cognitive impairment - ICD9: 331.83, ICD10: G31.84 Patient still endorsing short-term memory issues and difficulties with attention at work. MoCA slightly worse today at , previous was . Patient still driving without issue. MRI of the brainwithout any evidence of neurodegenerative process like Alzheimer's diseases hippocampus is in the 93rd percentile and normal brain volume. Patient does endorse a history of crack cocaine use for 10+ years many years ago. Patient also endorsing significant hearing loss, was found to have hearing loss and is scheduled to have hearing aids placed, do feel this likely contributed quite a bit to his poor score on the MoCA. Additionally, has issues with sleeping and staying asleep at night, high concern for sleep apnea and has PSG scheduled for later this month as well. Encouraged him to have sleep study, hearing aids placed as well as neuropsychological testing performed to further evaluate his memory. In the meantime, encouraged conservative therapy including increasing water intake, decreasing caffeine, increasing physical activit and cognitive activity. Will defer any medications at this time. Patient agreeable to treatment plan of care at this time, all questions were answered. Patientto follow-up after completion of studies. Claudine Calderon PA-C I spent a total of 45 minutes on the date of the service which included preparing to see the patient, [id number] patient care, completing clinical documentation, obtaining and/or reviewing separately obtained history, performing a medically appropriate examination, counseling and educating the pat ient/family/caregiver, and ordering medications, tests, or procedures. This document has been created with the use of voice recognition technology. It may contain inaccuracies: (e.g. misspellings, inaccurate syntax or word sense) that have escaped review. [facility] NoteHNO ID: [id number] Author: CARMELLA MAYFIELD APRN.[facility] Service: ? Author Type: Nurse Practitioner Type: Progress Notes Filed: 08/10/2023 11:34 Note Text: Subjective Patient came in with complaints of rectal burning and discomfort. Patient says it feels like it is up inside his rectum. Patient denies any pain when sitting. Patient denies any difficulty urinating. Patient says he is urinating more frequently. Patient does have a colonoscopy and EGD ordered. Has not scheduled them yet. were ordered back in January. Patient denies any fever chills nausea vomiting. Patient says he does have to take stool softeners to keep from getting constipated. The history is provided by the patient. No humanities and languages professor was used. Review of Systems Constitutional: Negative. Skin: Negative. Objective Physical Exam Constitutional: Appearance: Normal appearance. Pulmonary: Effort: Pulmonary effort is normal. Genitourinary: Comments: Rectum appears normal no abnormal findings. Airconditioning Drafting Officer was present. Neurological: Mental Status: He is alert. PAST MEDICAL HISTORY Diagnosis Date Essential hypertension Hemorrhoids History of colonic polyps 06/07/2017 06/07/17 25 mm sessile polyp sigmoid colon. 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 Rec: 6mo follow up Hypercholesterolemia 05/22/2022 Moderate episode of recurrent major depressive disorder (HCC) 04/01/2022 Multiple renal cysts 04/01/2022 Primary hypertension 03/03/2022 Smoker Tobacco use 05/12/2017 PAST SURGICAL HISTORY Procedure Laterality Date COLONOSCOPY FLX DX W/COLLJ SPEC WHEN PFRMD 06/07/2017 Colonoscopy ALLERGIES Penicillins MEDICATIONS CPAP/BIPAP/OTHER Type .CPAPSettings into a note to see current settings/supplies/DME information. atorvastatin (LIPITOR) 20 mg tablet Take 1 tablet by mouth once daily. Cholecalciferol, Vitamin D3, 50 mcg (2,000 unit) cap Take 1 capsule by mouth once daily. amLODIPine (NORVASC) 5 mg tablet Take 1 tablet by mouth once daily. varenicline (CHANTIX STARTING MONTH BOX) 0.5 mg (11)- 1 mg (42) tablet Take 0.5 mg by mouth once daily on Days 1 through 3, THEN 0.5 mg twice daily on Days 4 through 7, THEN 1 mg twice daily on Day 8 and thereafter varenicline (CHANTIX CONTINUING MONTH BOX) 1 mg tablet Take 1 tablet by mouth two times a day with meals. Patient should start on July 06, 2023. FAMILY HISTORY Problem Relation Age of Onset Diabetes Mother Heart Father Hypertension Father Social History Tobacco Use Smoking status: Every Day Packs/day: 1.00 Years: 17.00 Additional pack years: 0.00 Total pack years: 17.00 Types: Cigarettes Smokeless tobacco: Former Vaping Use Vaping Use: Never used Substance Use Topics Alcohol use: Yes Alcohol/week: 21.0 standard drinks of alcohol Types: 21 Cans of Beer (12oz) per week Drug use: Yes Comment: past use of crack and marijuana ASSESSMENT/PLAN: 1. Urinary frequency - ICD9: 788.41, ICD10: R35.0 (primary diagnosis) - UA DIP, URINE (POC) No culture was sent due to urine dip being negative. And patient not actually having any pain when he urinates. 2. Rectal pain - ICD9: 569.42, ICD10: K62.89 Patient was educated that he really does need to follow-up with ordering the colonoscopy. At this point no abnormal findings. Patient will follow-up and get his colonoscopy scheduled. Carmella Mayfield APRN.[facility]07-02-2024 History of Present illness Narrative* Carmella Mayfield APRN.[facility] - 08/10/2023 11:28 AM EDT Subjective Patient came in with complaints of rectal burning and discomfort. Patient says it feels like it is up inside his rectum. Patient denies any pain when sitting. Patient denies any difficulty urinating.Patient says he is urinating more frequently. Patient does have a colonoscopy and EGD ordered. Has not scheduled them yet. were ordered back in January. Patient denies any fever chills nausea vomiting. Patient says he does have to take stool softeners to keep from getting constipated. The history is provided by the patient. No humanities and languages professor was used. Review of Systems Constitutional: Negative. Skin: Negative. Objective Physical Exam Constitutional: Appearance: Normal appearance. Pulmonary: Effort: Pulmonary effort is normal. Genitourinary: Comments: Rectum appears normal no abnormal findings. Airconditioning Drafting Officer was present. Neurological: Mental Status: He is alert. PAST MEDICAL HISTORY Diagnosis Date Essential hypertension Hemorrhoids History of colonic polyps 06/07/2017 06/07/17 25 mm sessile polyp sigmoid colon. 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 Rec: 6mo follow up Hypercholesterolemia 05/22/2022 Moderate episode of recurrent major depressive disorder (HCC) 04/01/2022 Multiple renal cysts 04/01/2022 Primary hypertension 03/03/2022 Smoker Tobacco use 05/12/2017 PAST SURGICAL HISTORY Procedure Laterality Date COLONOSCOPY FLX DX W/COLLJ SPEC WHEN PFRMD 06/07/2017 Colonoscopy ALLERGIES Penicillins MEDICATIONS CPAP/BIPAP/OTHER Type .CPAPSettings into a note to see current settings/supplies/DME information. atorvastatin (LIPITOR) 20 mg tablet Take 1 tablet by mouth once daily. Cholecalciferol, Vitamin D3, 50 mcg (2,000 unit) cap Take 1 capsule by mouth once daily. amLODIPine (NORVASC) 5 mg tablet Take 1 tablet by mouth once daily. varenicline (CHANTIX STARTING MONTH BOX) 0.5 mg (11)- 1 mg (42) tablet Take 0.5 mg by mouth once daily on Days 1 through 3, THEN 0.5 mg twice daily on Days 4 through 7, THEN 1 mg twice daily on Day 8and thereafter varenicline (CHANTIX CONTINUING MONTH BOX) 1 mg tablet Take 1 tablet by mouth two times a day with meals. Patient should start on July 06, 2023. FAMILY HISTORY Problem Relation Age of Onset Diabetes Mother Heart Father Hypertension Father Social History Tobacco Use Smoking status: Every Day Packs/day: 1.00 Years: 17.00 Additional pack years: 0.00 Total pack years: 17.00 Types: Cigarettes Smokeless tobacco: Former Vaping Use Vaping Use: Never used Substance Use Topics Alcohol use: Yes Alcohol/week: 21.0 standard drinks of alcohol Types: 21 Cans of Beer (12oz) per week Drug use: Yes Comment: past use of crack and marijuana ASSESSMENT/PLAN: 1. Urinary frequency - ICD9: 788.41, ICD10: R35.0 (primary diagnosis) - UA DIP, URINE (POC) No culture was sent due to urine dip being negative. And patient not actually having any pain when he urinates. 2. Rectal pain - ICD9: 569.42, ICD10: K62.89 Patient was educated that he really does need to follow-up with ordering the colonoscopy. At this point no abnormal findings. Patient will follow-up and get his colonoscopy scheduled. Carmella Mayfield APRN.[facility] Instructions* Patient Instructions* Therese Leroy PA-C - 08/02/2023 10:44 AM EDT Images from the original note were not included. Bowel Preparation Instructions for: Golytely, Nulytely, Trilyte or Colyte (polyethylene glycol 3350and electrolytes) IF YOU DO NOT FOLLOW THESE DIRECTIONS, YOUR COLONOSCOPY WILL BE CANCELLED. Bautista Instructions: Your bowel must be empty so that your doctor can clearly view your colon. Follow all of the instructions in this handout EXACTLY as they are written. Do NOT eat any solid food the ENTIRE day before your colonoscopy. Drink only clear liquids. Buy your bowel preparation at least 5 days before your colonoscopy. TRANSPORTATION on the Day of Your Exam A responsible person MUST be present with you at Check In prior to your colonoscopy and REMAIN in the endoscopy area until you are discharged. You are NOT ALLOWED to drive, take a taxi or bus, or leave the Endoscopy Center ALONE. If you do not have a responsible stock driver (family member or friend) with you to take you home, your exam cannot be done with sedation and will be cancelled. Please bring a list of all of your current medications, including any Over-the Counter medications with you. Medications If you take insulin, diabetic medications or blood thinners such as Coumadin (warfarin), Plavix (clopidogrel), Ticlid (ticlopidine hydrochloride), Agrylin (anagrelide), Xarelto (Rivaroxaban), Pradaxa(Dabigatran), Eliquis (Apixaban), and Effient (Prasugrel). You MUST call the doctors who orders those medicines for instructions on altering the dosage before your colonoscopy. All other medications should be taken the day of the exam with a sip of water including ASPIRIN. Five (5) Days Before Your Colonoscopy Do NOT take medicines that stop diarrhea - such as Imodium, Kaopectate, or Pepto Bismol. Do NOT take fiber supplements - such as Metamucil, Citrucel, or Perdiem. Do NOT take products that contain iron - such as multi-vitamins (the label lists what is in the products). Do NOT take Vitamin E. Buy the prescription bowel preparation solution at your local pharmacy or drugstore pharmacy. 01/2019 Bowel Preparation Instructions for: Golytely, Nulytely, Trilyte or Colyte (polyethylene glycol 3350and electrolytes) Three (3) Days Before Your Colonoscopy Do NOT eat high-fiber foods - such as popcorn, beans, seeds (flax, sunflower, quinoa), multigrain bread, nuts, salad/vegetables, or fresh and dried fruit. One (1) Day Before Your Colonoscopy Only drink clear liquids the ENTIRE DAY before your colonoscopy. Do NOT eat any solid foods. Drink at least 8 ounces of clear liquids every hour after waking up. The clear liquids you can drink include: Clear Liquid (NO RED LIQUIDS) DO NOT DRINK Gatorade, Pedialyte or Powerade Clear broth or bouillon Coffee or tea (no milk or non-dairy creamer) Carbonated and non-carbonated soft drinks Elijah-Aid or other fruit flavored drinks Strained fruit juices (no pulp) Jell-O, popsicles, hard candy Water Alcohol Milk or non-dairy creamers Noodles or vegetables in soup Juice with pulp Liquid you cannot see through Do not use tobacco/vaping products The bowel preparation solution will be consumed in two parts. Mix the solution the evening before your colonoscopy and refrigerate before drinking. You may add the flavor pack that came with the bowel preparation. Do NOT add ice, sugar or any other flavorings to the solution. Part 1 At 6:00 PM - Evening before your colonoscopy Drink an 8-oz glass of bowel preparation every 10 minutes for a total of 8 glasses. You may continue to drink clear liquids until midnight. Part 2 On the day of your colonoscopy you may drink clear liquids up to (three) 3 hours before your procedure. 4 1/2 hours before your colonoscopy Drink an 8-oz glass of bowel preparation every 10 minutes for a total of 8 glasses. Fifteen (15) minutes later, drink an 8-oz glass of clear liquids every 15 minutes for a total of 2 glasses. You may continue to drink clear liquids up to (three) 3 hours before your exam. 2 01/2019 [facility] History of Present illness Narrative* Therese Leroy PA-C - 08/02/2023 10:20 AM EDT VIRTUAL VISIT FOLLOW UP Emma Vasquez [id number] 1965 has requested a video telemedicine follow-up visit. Emma Vasquez verbalized informed consent to proceed with the video telemedicine follow-up visit. Emma Vasquez was informed that the details of this video visit would be recorded as part of their electronic medical record. I have communicated my name and active licensure. The patient's identity and physical location wereverified at the time of this visit. Either the patient or their legal union representative has been informed of the risks and benefits of -- and alternatives to -- treatment through a remote evaluation andconsents to proceed with the evaluation remotely. Patient location at time of call: [place] No chief complaint on file. I had a virtual visit with Mr. Vasquez today for follow up of colonoscopy scheduling. UPDATED HISTORY: Emma Vasquez is a 57 year old male with PMHx of HTN, HLD, MICA, MDD who presents for follow upregarding colonoscopy. Pt has not been able to schedule colonoscopy due to issues with transportation. Seeking advice regarding alternatives given continued sx of constipation and notes some burning when having a BM in addition. Answers submitted by the patient for this visit: Review of Systems Gastroenterology (Submitted on 07/30/2023) Fever: No Chills: No Night Sweats: No Unitentional Weight Change: No A Cough: No Difficulty Breathing: No Chest Pain: No Belly pain: Yes A feeling of fullness or have belly pain after eating: No Food getting stuck in your throat or chest after eating: No Nausea - that is, a feeling like you could vomit: No Regurgitation - that is, food or liquid coming back up into your throat or mouth without vomiting, or feel burning behind your breast bone: No Loss of appetite: No To throw up or vomit: No Blood in your stools: Yes Black tarry stools: Yes Loose or watery stools: No The feeling like you need to empty your bowels right away - that is, feel as if you would have an accident: No Bowel incontinence - that is, have an accident because you cannot make it to the bathroom in time: No Problems with straining while having bowel movements , hard or lumpy stools, or feel unfinished (that you have not passed all your stool): Yes Pain in rectum or anus during bowel movements: Yes Problems with having to flush the toilet more than two times due to oily stool, or see stool floating with oil: No PAST MEDICAL HISTORY Diagnosis Date Essential hypertension Hemorrhoids History of colonic polyps 06/07/2017 06/07/17 25 mm sessile polyp sigmoid colon. 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 Rec: 6mo follow up Hypercholesterolemia 05/22/2022 Moderate episode of recurrent major depressive disorder (HCC) 04/01/2022 Multiple renal cysts 04/01/2022 Primary hypertension 03/03/2022 Smoker Tobacco use 05/12/2017 PAST SURGICAL HISTORY Procedure Laterality Date COLONOSCOPY FLX DX W/COLLJ SPEC WHEN PFRMD 06/07/2017 Colonoscopy FAMILY HISTORY Problem Relation Age of Onset Diabetes Mother Heart Father Hypertension Father Social History Tobacco Use Smoking status: Every Day Packs/day: 1.00 Years: 17.00 Additional pack years: 0.00 Total pack years: 17.00 Types: Cigarettes Smokeless tobacco: Former Vaping Use Vaping Use: Never used Substance Use Topics Alcohol use: Yes Alcohol/week: 21.0 standard drinks of alcohol Types: 21 Cans of Beer (12oz) per week Drug use: Yes Comment: past use of crack and marijuana Current Outpatient Medications Medication Sig Dispense Refill CPAP/BIPAP/OTHER Type .CPAPSettings into a note to see current settings/supplies/DME information. 1Each 0 atorvastatin (LIPITOR) 20 mg tablet Take 1 tablet by mouth once daily. 90 tablet 3 Cholecalciferol, Vitamin D3, 50 mcg (2,000 unit) cap Take 1 capsule by mouth once daily. 90 capsule3 amLODIPine (NORVASC) 5 mg tablet Take 1 tablet by mouth once daily. 90 tablet 1 varenicline (CHANTIX STARTING MONTH BOX) 0.5 mg (11)- 1 mg (42) tablet Take 0.5 mg by mouth once daily on Days 1 through 3, THEN 0.5 mg twice daily on Days 4 through 7, THEN 1 mg twice daily on Day 8and thereafter 53 tablet 0 varenicline (CHANTIX CONTINUING MONTH BOX) 1 mg tablet Take 1 tablet by mouth two times a day with meals. Patient should start on July 06, 2023. 60 tablet 2 No current facility-administered medications for this visit. ALLERGIES Allergen Reactions Penicillins Unknown, Hives PHYSICAL FINDINGS OF NOTE: General: "alert and appropriate, in no distress and well-hydrated, well nourished", Psych: Appropriate mood and interaction Skin: no rash noted, Head: normocephalic, no abnormality or lesion noted, Eyes: EOMI, Ears: external ears normal without erythema or edema, Nose: external nose normal without rhinorrhea, Oropharynx: moist mucus membranes Neck: full ROM Respiratory: breathing non-labored, and no grunting/flaring/retractions, Chest: equal chest rise with normal respiratory effort, Abdomen: flat appearing. Visible protrusions or hernias: No Incisions/scars: None Areas of pain/tenderness: Denies Neuro: Patient seen sitting with normal appearing strength and coordination REVIEWED ITEMS CBC: WBC (k/uL) Date Value 06/12/2023 9.71 Hematocrit (%) Date Value 06/12/2023 51.7 (H) MCV (fL) Date Value 06/12/2023 92.2 Platelet Count (k/uL) Date Value 06/12/2023 301 Lymphocytes % (%) Date Value 06/12/2023 40.0 Hepatic Function Panel: Albumin (g/dL) Date Value 06/12/2023 4.3 Bilirubin, Total (mg/dL) Date Value 06/12/2023 0.3 Alkaline Phosphatase (U/L) Date Value 06/12/2023 85 AST (U/L) Date Value 06/12/2023 19 ALT (U/L) Date Value 06/12/2023 18 Protein, Total (g/dL) Date Value 06/12/2023 6.8 Assessment IMPRESSION Emma Vasquez is a 57 year old male with PMHx of HTN, HLD, Hemorrhoids, MDD who presents for follow up of constipation. Pt presents for VV to discuss pursuing colonoscopy. Has had to cancel due to issues with transportation. Reports continued issues with constipation and burning sensation with BM. PLAN Advised to communicate with medicare/medicaid transportation Can also pursue inpt colonoscopy, reach out to PCP for direct admission to pursue as discussed Prep orders re-placed per pt request Red flags for in person care discussed I spent a total of 15 minutes on the date of the service which included [id number] patient care, completing clinical documentation, counseling and educating the patient/family/caregiver, and ordering medications, tests, or procedures. Therese Leroy PA-C August 02, 2023 10:22 AM documented in this encounterT[facility]06-24-2024 NoteHNO ID: [id number] Author: THERESE LEROY PA-C Service: ? Author Type: Physician Security Alarm Installer Type: Progress Notes Filed: 08/02/2023 16:03 Note Text: VIRTUAL VISIT FOLLOW UP Emma Vasquez [id number] 1965 has requested a video telemedicine follow-up visit. Emma Vasquez verbalized informed consent to proceed with the video telemedicine follow-up visit. Emma Vasquez was informed that the details of this video visit would be recorded as part of their electronic medical record. I have communicated my name and active licensure. The patient's identity and physical location were verified at the time of this visit. Either the patient or their legal union representative has been informed of the risks and benefits of -- and alternatives to -- treatment through a remote evaluation and consents to proceed with the evaluation remotely. Patient location at time of call: [place] No chief complaint on file. I had a virtual visit with Mr. Vasquez today for follow up of colonoscopy scheduling. UPDATED HISTORY: Emma Vasquez is a 57 year old male with PMHx of HTN, HLD, MICA, MDD who presents for follow up regarding colonoscopy. Pt has not been able to schedule colonoscopy due to issues with transportation. Seeking advice regarding alternatives given continued sx of constipation and notes some burning when having a BM in addition. Answers submitted by the patient for this visit: Review of Systems Gastroenterology (Submitted on 07/30/2023) Fever: No Chills: No Night Sweats: No Unitentional Weight Change: No A Cough: No Difficulty Breathing: No Chest Pain: No Belly pain: Yes A feeling of fullness or have belly pain after eating: No Food getting stuck in your throat or chest after eating: No Nausea - that is, a feeling like you could vomit: No Regurgitation - that is, food or liquid coming back up into your throat or mouth without vomiting, or feel burning behind your breast bone: No Loss of appetite: No To throw up or vomit: No Blood in your stools: Yes Black tarry stools: Yes Loose or watery stools: No The feeling like you need to empty your bowels right away - that is, feel as if you would have an accident: No Bowel incontinence - that is, have an accident because you cannot make it to the bathroom in time: No Problems with straining while having bowel movements , hard or lumpy stools, or feel unfinished (that you have not passed all your stool): Yes Pain in rectum or anus during bowel movements: Yes Problems with having to flush the toilet more than two times due to oily stool, or see stool floating with oil: No PAST MEDICAL HISTORY Diagnosis Date Essential hypertension Hemorrhoids History of colonic polyps 06/07/2017 06/07/17 25 mm sessile polyp sigmoid colon. 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 Rec: 6mo follow up Hypercholesterolemia 05/22/2022 Moderate episode of recurrent major depressive disorder (HCC) 04/01/2022 Multiple renal cysts 04/01/2022 Primary hypertension 03/03/2022 Smoker Tobacco use 05/12/2017 PAST SURGICAL HISTORY Procedure Laterality Date COLONOSCOPY FLX DX W/COLLJ SPEC WHEN PFRMD 06/07/2017 Colonoscopy FAMILY HISTORY Problem Relation Age of Onset Diabetes Mother Heart Father Hypertension Father Social History Tobacco Use Smoking status: Every Day Packs/day: 1.00 Years: 17.00 Additional pack years: 0.00 Total pack years: 17.00 Types: Cigarettes Smokeless tobacco: Former Vaping Use Vaping Use: Never used Substance Use Topics Alcohol use: Yes Alcohol/week: 21.0 standard drinks of alcohol Types: 21 Cans of Beer (12oz) per week Drug use: Yes Comment: past use of crack and marijuana Current Outpatient Medications Medication Sig Dispense Refill CPAP/BIPAP/OTHER Type .CPAPSettings into a note to see current settings/supplies/DME information. 1 Each 0 atorvastatin (LIPITOR) 20 mg tablet Take 1 tablet by mouth once daily. 90 tablet 3 Cholecalciferol, Vitamin D3, 50 mcg (2,000 unit) cap Take 1 capsule by mouth once daily. 90 capsule 3 amLODIPine (NORVASC) 5 mg tablet Take 1 tablet by mouth once daily. 90 tablet 1 varenicline (CHANTIX STARTING MONTH BOX) 0.5 mg (11)- 1 mg (42) tablet Take 0.5 mg by mouth once daily on Days 1 through 3, THEN 0.5 mg twice daily on Days 4 through 7, THEN 1 mg twice daily on Day 8 and thereafter 53 tablet 0 varenicline (CHANTIX CONTINUING MONTH BOX) 1 mg tablet Take 1 tablet by mouth two times a day with meals. Patient should start on July 06, 2023. 60 tablet 2 No current facility-administered medications for this visit. ALLERGIES Allergen Reactions Penicillins Unknown, Hives PHYSICAL FINDINGS OF NOTE: General: "alert and appropriate, in no distress and well-hydrated, well nourished", Psych: Appropriate mood and interaction Skin: no rash noted, Head: normocephalic, no abnormality or lesion noted, Eyes: EOMI, Ears: external ears normal without erythem (more content not included)... [facility]06-04-2024 Telephone encounter Note* Telephone Encounter - Laurel Villela RN - 07/13/2023 8:48 AM EDT Phone call to patient. States he went to [facility] ED and was treated and released. He had aCT done and states "it showed that constipation is the whole issue." Patient declined an appointment with Urology. [facility] Miscellaneous Notes* Telephone Encounter - Laurel Villela RN - 07/13/2023 8:48 AM EDT Phone call to patient. States he went to [facility] ED and was treated and released. He had aCT done and states "it showed that constipation is the whole issue." Patient declined an appointment with Urology. * Telephone Encounter - Jolene Beavers MD - 07/12/2023 7:32 PM EDT Below noted Grateful for options Filed consult order * Telephone Encounter - Antwon Correa PA-C - 07/12/2023 7:05 PM EDT Patient can do a Bladder Scan in the office with MA or nurse, that's not an issue. However, if he is retaining urine and needs a Urology consult for testing and therapy recommendations he will need afull 30 min visit, and I need any past Urology provider notes if not [facility]. I have a 10 am opening 07/13/2023 tomorrow. The main issue he had when I saw him in 2020 was Pelvic Floor Dysfunction which can cause all of the current symptoms. He really needs a Pelvic Floor PT Consultation, he never followed- up after I got his records from outside provider to get the PFPT consult orders. That is basically may plan if he sees me in the office. I will look at PVR Urine sample and may do a culture pending UA results and symptoms. If he is not interested in PFPT then its not much I can do, unless the urine and cultures are different now, before he was given a bunch of antibiotics despite no urine cultures showing UTI. JEREMY Roberts, [place], SANDRO * Telephone Encounter - Mary Beth Arteaga LPN - 07/12/2023 2:24 PM EDT Patient returned call and would like to see urology for a bladder scan to check for retention. No provider in urology today but nurse will check with office and contact patient if able to scan patient tomorrow. * Telephone Encounter - Michelle Bourne LPN - 07/12/2023 12:43 PM EDT Patient notified of providers message and verbalized understanding. Patient no normal BM since Wednesday and he hasn't used any treatment for constipation except he thought he wasn't drinking enough water so did drink 6-7 glasses of water yesterday and did have a normal BM. However, he woke up this morning with the same problem and the water didn't help. His concern is that he is having a colonoscopy on Wednesday and start prep tomorrow. He is asking if this is going to be a problem. Please advise * Telephone Encounter - Jolene Beavers MD - 07/12/2023 10:36 AM EDT Might be having urinary retention. Could have run off stool associated with constipation, and constipation could be causing issues with urinary retention. Not sure if related to Biaxin was given. Consider seeing urology if they have openings--they could do a bladder scan to see whether having significant urinary retention. To ER if pain too severe to wait to see them--in ER they could do statstudies and if having urinary retention, they can catheterize him then have outpatient follow up. Might be able to alleviate pain by treating constipation--see when had last normal BM or at least passed more than a small amount of stool. What has he tried for treating constipation Recommend appointment for further evaluation if symptoms not getting better. * Telephone Encounter - Mary Beth Arteaga LPN - 07/12/2023 10:18 AM EDT Ajit calling today with complaints of cramping/stiffness in the bladder area that he rates it 8:10on pain scale. Pain interrupts his sleep at times. Denies any urinary tract infection symptoms. He also had complaints of constipation although he states he has been having small amounts of diarrhea. He feels he is drinking plenty of fluids. Denies any fever. Does complain of no energy. Symptoms started over the weekend. Did see ENT and given Biaxin to treat some fluid behind his ear but only took 4 doses as he felt hewas having a reaction to this medication. Patient is questioning if symptoms are related to medications that he started last month. Patient will continue to take the amlodipine but will hold the atorvastatin and vitamin d until he hears further recommendations. documented in this [facility] Patient Education 07/12/2023 19:16:11 Abdominal Pain, Unknown Cause, (Male) Unknown Causes of Abdominal Pain (Male) Based on your visit today, the exact cause of your abdominal pain is not clear. Your exam and testsdon't suggest a dangerous cause at this time. However, the signs of a serious problem may take moretime to appear. Although your evaluation was reassuring today, sometimes early in the course of many conditions, exam and lab tests can appear normal. Therefore, it is important for you to watch for any new symptoms or worsening of your condition. It may not be obvious what caused your symptoms. Pay attention to things that do seem to make your symptoms worse or better and discuss this with your doctor when you follow up. The evaluation of abdominal pain in the emergency department may only require an exam by the doctoror it may include blood, urine or imaging studies, depending on many factors. Sometimes exams and tests can identify a cause but in many cases, a clear cause is not found. Further testing at follow up visits may help to suggest a clear diagnosis. Home care Rest as much as you can until your next exam. Try to avoid any medicines (unless otherwise directed by your doctor), foods, activities, or other factors that may have contributed to your symptoms. Try to eat foods that you know that you have tolerated well in the past. Certain diets may be recommended for some conditions that cause abdominal pain. However, since the cause of your symptoms may not be clear, discuss your diet more with your healthcare provider or specialist for further recommendations. If you have diarrhea, it may help to avoid dairy (lactose) for the time being. A low fat, low fiberdiet can also help. Eating several small meals per day as opposed to 2 or 3 larger meals may help. Avoid dehydration. Make sure to drink plenty of water. Other options include broth, soup, gelatin, sports drinks, or other clear liquids. Watch closely for anything that may make your symptoms worse or better. Pay close attention to symptoms below that may mean your condition is getting worse. Follow-up care Follow up with your healthcare provider if your symptoms are not improving, or as advised. In some cases, you may need more testing. When to seek medical advice Call your healthcare provider right away if any of these occur: Pain is becoming worse You are unable to take your medicines or can't keep water down due to excessive vomiting Swelling of the abdomen Fever of 100.4 F (38 C) or higher, or as directed by your healthcare provider Blood in vomit or bowel movements (dark red or black color) Jaundice (yellow color of eyes and skin) New onset of weakness, dizziness or fainting New onset of chest, arm, back, neck or jaw pain 6669-2425 [employer]. [address] [place] [address], [place] [address]. All rights reserved. This information is not intended as a substitute for professional medical care. Always follow yourhealthcare professional's instructions. 07/12/2023 19:16:02 Constipation (Adult) Constipation (Adult) Constipation means that you have bowel movements that are less frequent than usual. Stools often become very hard and difficult to pass. Constipation is very common. At some point in life, it affects almost everyone. Since everyone's bowel habits are different, what is constipation to one person may not be to another. Your healthcare provider may do tests to diagnose constipation. It depends on what he or she finds when evaluating you. Symptoms of constipation include: Abdominal pain Bloating Vomiting Painful bowel movements Itching, swelling, bleeding, or pain around the anus Causes Constipation can have many causes. These include: Diet low in fiber Too much dairy Not drinking enough liquids Lack of exercise or physical activity (especially true for older adults) Changes in lifestyle or daily routine, including , aging, work, and travel Frequent use or misuse of laxatives Ignoring the urge to have a bowel movement or delaying it until later Medicines, such as certain prescription pain medicines, iron supplements, antacids, certain antidepressants, and calcium supplements Diseases like irritable bowel syndrome, bowel obstructions, stroke, diabetes, thyroid disease, Parkinson disease, hemorrhoids, and colon cancer Complications Potential complications of constipation can include: Hemorrhoids Rectal bleeding from hemorrhoids or anal fissures (skin tears) Hernias Dependency on laxatives Chronic constipation Fecal impaction, a severe form of constipation in which a large amount of hard stool is in your rectum that you can't pass Bowel obstruction or perforation Home care All treatment should be done after talking with your healthcare provider. This is especially true if you have another medical problems, are taking prescription medicines, or are an older adult. Treatment most often involves lifestyle changes. You may also need medicines. Your healthcare provider will tell you which will work best for you. Follow the advice below to help avoid this problem in the future. Lifestyle changes These lifestyle changes can help prevent constipation: Diet. Eat a high-fiber diet, with fresh fruit and vegetables, and reduce dairy intake, meats, and processed foods Fluids. It's important to get enough fluids each day. Drink plenty of water when you eat more fiber. If you are on diet that limits the amount of fluid you can have, talk about this with your healthcare provider. Regular exercise. Check with your healthcare provider first. Medicines Take any medicines as directed. Some laxatives are safe to use only every now and then. Others can be taken on a regular basis. While laxatives don't cause bowel dependence, they are treating the symptoms. So your constipation may return if you don't make other changes. Talk with your healthcare provider or pharmacist if you have questions. Prescription pain medicines can cause constipation. If you are taking this kind of medicine, ask your healthcare provider if you should also take a stool softener. Medicines you may take to treat constipation include: Fiber supplements Stool softeners Laxatives Enemas Rectal suppositories Follow-up care Follow up with your healthcare provider if symptoms don't get better in the next few days. You may need to have more tests or see a specialist. Call 911 Call 911 if any of these occur: Trouble breathing Stiff, rigid abdomen that is severely painful to touch Confusion Fainting or loss of consciousness Rapid heart rate Chest pain When to seek medical advice Call your healthcare provider right away if any of these occur: Fever of 100.4 F (38 C) or higher, or as directed by your healthcare provider Failure to resume normal bowel movements Pain in your abdomen or back gets worse Nausea or vomiting Swelling in your abdomen Blood in the stool Black, tarry stool Involuntary weight loss Weakness [id number] [employer]. [address] [place] [address]. All rights reserved. This information is not intended as a substitute for professional medical care. Always follow yourhealthcare professional's instructions. Follow Up Care 07/12/2023 16:48:07 With:BRIAN GIBSON APRN-CRUISE DIRECTOR Address: [address] [place] [phone] When:2-4 days Comments:Return to ED if symptoms worsen [facility] 06-03-2024 Telephone encounter Note* Telephone Encounter - Jolene Beavers MD - 07/12/2023 7:32 PM EDT Below noted Grateful for options Filed consult order [facility] Note Discharge Instructions Thank you for allowing [facility] to assist you with your healthcare needs. The following is importantdischarge information regarding your hospital visit. Diagnosis from Today's Visit Constipation What to Do Next Instructions from Your Care Team No qualifying data available. Post Acute Orders No qualifying data available. You Need to Schedule the Following Appointments Follow Up with BRIAN GIBSON When:Within 2-4 days Where:[address] [place] [phone] Additional Information: Return to ED if symptoms worsen Allergies penicillin Medications Please ask your primary doctor or pharmacist before taking any other medication not listed, including over the counter drugs, herbal medications, vitamins and or supplements as they may interact withyour home medications. What How Much When Why Instructions Last Dose New docusate (docusate sodium 50 mg oral capsule) 1 cap by mouth Two (2) times a day as needed for as needed for constipation Duration: 14 Days Printed Prescription New polyethylene glycol 3350 (MiraLax oral powder for reconstitution) 17 gram(s) by mouth Two (2) times a day as needed for Constipation Duration: 10 Days Printed Prescription Unchanged amLODIPine (amLODIPine 5 mg oral tablet) 1 tab(s) by mouth Once a day Unchanged atorvastatin (atorvastatin 20 mg oral tablet) 1 tab(s) by mouth Every day Unchanged lisinopril (lisinopril 10 mg oral tablet) 1 tab(s) by mouth Every day Hypertension Duration: 14 Days Unchanged Misc Medication (VITAMIN D3 50 MCG (2,000 UNIT) CAPSULE) Unchanged varenicline (varenicline 1 mg oral tablet) Please take this list to your next doctor s visit. Bring all medications you take, including over the counter medications, herbals and other supplements with you to your doctor s visit. Patients and families are reminded to discard old lists and to update any records with all medication providers or retail pharmacies. Medication Leaflets polyethylene glycol 3350 (aleyda ee ETH il een GLYE kol) ClearLax, GaviLAX, HealthyLax, MiraLax, Natura-Lax, [id number], [employer] ClearLax What is the most important information I should know about polyethylene glycol 3350? You should not use this medicine if you have a bowel obstruction or intestinal blockage. If you have any of these conditions, you could have dangerous or life- threatening side effects from polyethylene glycol 3350. Do not use polyethylene glycol 3350 more than once per day. Call your doctor if you are still constipated or irregular after using this medication for 7 days in a row. What is polyethylene glycol 3350? Polyethylene glycol 3350 is a laxative solution that increases the amount of water in the intestinal tract to stimulate bowel movements. Polyethylene glycol 3350 is used as a laxative to treat occasional constipation or irregular bowel movements. Polyethylene glycol 3350 may also be used for purposes not listed in this medication guide. What should I discuss with my healthcare provider before taking polyethylene glycol 3350? You should not use this medicine if you are allergic to polyethylene glycol, or if you have a bowelobstruction or intestinal blockage. If you have any of these conditions, you could have dangerous or life-threatening side effects from polyethylene glycol 3350. People with eating disorders (such as anorexia or bulimia) should not use this medication without the advice of a doctor. To make sure this medicine is safe for you, tell your doctor if you have: nausea, vomiting, or severe stomach pain; ulcerative colitis; irritable bowel syndrome; kidney disease; or if you have had a sudden change in bowel habits that has lasted 2 weeks or longer. FDA category C. It is not known whether polyethylene glycol 3350 will harm an unborn baby. Tell your doctor if you are or plan to become while using this medication. It is not known whether polyethylene glycol 3350 passes into breast milk or if it could harm a nursing baby. Tell your doctor if you are breast-feeding a baby. How should I take polyethylene glycol 3350? Follow all directions on your prescription label. Do not use this medicine in larger or smaller amounts or for longer than recommended. To use the powder form of this medicine, measure your dose with the medicine cap on the bottle. This cap should contain dose sewell on the inside of it. Pour the powder into 4 to 8 ounces of a cold orhot beverage such as water, juice, soda, coffee, or tea. Stir this mixture and drink it right away.Do not save for later use. Polyethylene glycol 3350 should produce a bowel movement within 1 to 3 days of using the medication. Polyethylene glycol 3350 normally causes loose or even watery stools. Do not use polyethylene glycol 3350 more than once per day. Call your doctor if you are still constipated or irregular after using this medication for 7 days in a row. Store at room temperature away from moisture and heat. What happens if I miss a dose? Take the missed dose as soon as you remember. Skip the missed dose if it is almost time for your next scheduled dose. Do not take extra medicine to make up the missed dose. What happens if I overdose? Seek emergency medical attention or call the Poison Help line at . What should I avoid while taking polyethylene glycol 3350? Follow your doctor's instructions about any restrictions on food, beverages, or activity. What are the possible side effects of polyethylene glycol 3350? Get emergency medical help if you have signs of an allergic reaction: hives; difficult breathing; swelling of your face, lips, tongue, or throat. Stop taking this medicine and call your doctor at once if you have: severe or bloody diarrhea; rectal bleeding; blood in your stools; or severe and worsening stomach pain. Common side effects may include: bloating, gas, upset stomach; dizziness; or increased sweating. This is not a complete list of side effects and others may occur. Call your doctor for medical advice about side effects. You may report side effects to FDA at 0-296-HPN-0975. What other drugs will affect polyethylene glycol 3350? Other drugs may interact with polyethylene glycol 3350, including prescription and cnif-ybc-dsrzanxceijizedw, vitamins, and herbal products. Tell each of your health care providers about all medicines you use now and any medicine you start or stop using. Where can I get more information? Your pharmacist can provide more information about polyethylene glycol 3350. Remember, keep this and all other medicines out of the reach of children, never share your medicines with others, and use this medication only for the indication prescribed. Every effort has been made to ensure that the information provided by [employer]. [employer] is accurate, up-to-date, and complete, but no guarantee is made to that effect. Drug information contained herein may be time sensitive. [employer] information has been compiled for use by healthcare practitioners and consumers in the [place] and therefore [employer] does not warrant that uses outside of the [place] are appropriate, unless specifically indicated otherwise. [employer] drug information does not endorse drugs, diagnose patients or recommend therapy. [employer] drug information isan informational resource designed to assist licensed healthcare practitioners in caring for their p atients and/or to serve consumers viewing this service as a supplement to, and not a substitute for, the expertise, skill, knowledge and judgment of healthcare practitioners. The absence of a warningfor a given drug or drug combination in no way should be construed to indicate that the drug or drug combination is safe, effective or appropriate for any given patient. [facility] does not assume any responsibility for any aspect of healthcare administered with the aid of information [facility] provides. The information contained herein is not intended to cover all possible uses, directions, precautions, warnings, drug interactions, allergic reactions, or adverse effects. If you have questions about the drugs you are taking, check with your doctor, nurse or pharmacist. Copyright 8898-9917 [facility]. Version: 4.01. Revision Date: 09/09/2022. docusate (oral/rectal) (DOK ue sate) Colace, Colace Clear, Docu Soft, Doculase, Docusate Mini, DocuSol Kids, DOK, DSS, Dulcolax Stool Softener, Enemeez Mini, Pedia-Lax Stool Softener, Chirinos Stool Softener, Silace, Karly-Q-Lax What is the most important information I should know about docusate? You should not use docusate if you also use mineral oil, unless your doctor tells you to. What is docusate? Docusate is a stool softener that makes bowel movements softer and easier to pass. Docusate is used to relieve occasional constipation (irregularity). There are many brands and forms of docusate available. Not all brands are listed on this leaflet. Docusate may also be used for purposes not listed in this medication guide. What should I discuss with my healthcare provider before using docusate? You should not use docusate if you are allergic to it. Ask a doctor or pharmacist if this medicine is safe to use if you have: stomach pain; nausea; vomiting; or a sudden change in bowel habits that lasts over 2 weeks. Ask a doctor before using this medicine if you are or . Do not give this medicine to a child without medical advice. How should I use docusate? Use exactly as directed on the label, or as prescribed by your doctor. Drink plenty of liquids while you are using docusate. Measure liquid medicine carefully. Use the dosing syringe provided, or use a medicine dose-measuring device (not a kitchen spoon). Do not take the rectal enema by mouth. Rectal medicine is for use only in the rectum. Wash your hands before and after using the enema. To use the enema, lie on your left side with your left leg extended and your right leg slightly bent. Remove the cap from the applicator tip and gently insert the tip into your rectum. Slowly squeezethe bottle to empty the contents into the rectum. After using the enema, lie down on your left side for at least 30 minutes to allow the liquid to distribute throughout your intestines. Avoid using the bathroom, and hold in the enema at least 1 hour, or all night if possible. Read and carefully follow any Instructions for Use provided with your medicine. Ask your doctor or pharmacist if you do not understand these instructions. Docusate generally produces bowel movement in 12 to 72 hours. Call your doctor if your symptoms do not improve after 72 hours. You should not use docusate for longer than 1 week, unless your doctor tells you to. Store at room temperature away from moisture, light, and heat. Do not freeze liquid medicine. What happens if I miss a dose? Since docusate is used when needed, you may not be on a dosing schedule. Skip any missed dose if it's almost time for your next dose. Do not use two doses at one time. What happens if I overdose? Seek emergency medical attention or call the Poison Help line at . What should I avoid while using docusate? Avoid using mineral oil, unless told to do so by a doctor. What are the possible side effects of docusate? Get emergency medical help if you have signs of an allergic reaction: hives; difficult breathing; swelling of your face, lips, tongue, or throat. Stop using docusate and call your doctor at once if: you have rectal bleeding; no bowel movement occurs after using a laxative; you need to use a stool softener for more than 1 week; or rash occurs. Less serious side effects may be more likely, and you may have none at all. This is not a complete list of side effects and others may occur. Call your doctor for medical advice about side effects. You may report side effects to FDA at 4-594-CXU-4734. What other drugs will affect docusate? Other drugs may affect docusate, including prescription and afxw-nvi-yyvpjxt medicines, vitamins, and herbal products. Tell your doctor about all other medicines you use. Where can I get more information? Your pharmacist can provide more information about docusate. Remember, keep this and all other medicines out of the reach of children, never share your medicines with others, and use this medication only for the indication prescribed. Every effort has been made to ensure that the information provided by [employer]. [employer]') is accurate, up-to-date, and complete, but no guarantee is made to that effect. Drug information contained herein may be time sensitive. [employer] information has been compiled for use by healthcare practitioners and consumers in the [place] and therefore [employer] does not warrant that uses outside of the [place] are appropriate, unless specifically indicated otherwise. [employer] drug information does not endorse drugs, diagnose patients or recommend therapy. [employer] drug information isan informational resource designed to assist licensed healthcare practitioners in caring for their p atients and/or to serve consumers viewing this service as a supplement to, and not a substitute for, the expertise, skill, knowledge and judgment of healthcare practitioners. The absence of a warningfor a given drug or drug combination in no way should be construed to indicate that the drug or drug combination is safe, effective or appropriate for any given patient. [employer] does not assume any responsibility for any aspect of healthcare administered with the aid of information [employer] provides. The information contained herein is not intended to cover all possible uses, directions, precautions, warnings, drug interactions, allergic reactions, or adverse effects. If you have questions about the drugs you are taking, check with your doctor, nurse or pharmacist. Copyright 76[address] [employer] Version: 7.02. Revision Date: 06/01/2023. Education Materials Unknown Causes of Abdominal Pain (Male) Based on your visit today, the exact cause of your abdominal pain is not clear. Your exam and testsdon't suggest a dangerous cause at this time. However, the signs of a serious problem may take moretime to appear. Although your evaluation was reassuring today, sometimes early in the course of many conditions, exam and lab tests can appear normal. Therefore, it is important for you to watch for any new symptoms or worsening of your condition. It may not be obvious what caused your symptoms. Pay attention to things that do seem to make your symptoms worse or better and discuss this with your doctor when you follow up. The evaluation of abdominal pain in the emergency department may only require an exam by the doctoror it may include blood, urine or imaging studies, depending on many factors. Sometimes exams and tests can identify a cause but in many cases, a clear cause is not found. Further testing at follow up visits may help to suggest a clear diagnosis. Home care Rest as much as you can until your next exam. Try to avoid any medicines (unless otherwise directed by your doctor), foods, activities, or other factors that may have contributed to your symptoms. Try to eat foods that you know that you have tolerated well in the past. Certain diets may be recommended for some conditions that cause abdominal pain. However, since the cause of your symptoms may not be clear, discuss your diet more with your healthcare provider or specialist for further recommendations. If you have diarrhea, it may help to avoid dairy (lactose) for the time being. A low fat, low fiberdiet can also help. Eating several small meals per day as opposed to 2 or 3 larger meals may help. Avoid dehydration. Make sure to drink plenty of water. Other options include broth, soup, gelatin, sports drinks, or other clear liquids. Watch closely for anything that may make your symptoms worse or better. Pay close attention to symptoms below that may mean your condition is getting worse. Follow-up care Follow up with your healthcare provider if your symptoms are not improving, or as advised. In some cases, you may need more testing. When to seek medical advice Call your healthcare provider right away if any of these occur: Pain is becoming worse You are unable to take your medicines or can't keep water down due to excessive vomiting Swelling of the abdomen Fever of 100.4 F (38 C) or higher, or as directed by your healthcare provider Blood in vomit or bowel movements (dark red or black color) Jaundice (yellow color of eyes and skin) New onset of weakness, dizziness or fainting New onset of chest, arm, back, neck or jaw pain 2423-2954 [employer]. [address] [place] [address], [place] [address]. All rights reserved. This information is not intended as a substitute for professional medical care. Always follow yourhealthcare professional's instructions. Constipation (Adult) Constipation means that you have bowel movements that are less frequent than usual. Stools often become very hard and difficult to pass. Constipation is very common. At some point in life, it affects almost everyone. Since everyone's bowel habits are different, what is constipation to one person may not be to another. Your healthcare provider may do tests to diagnose constipation. It depends on what he or she finds when evaluating you. Symptoms of constipation include: Abdominal pain Bloating Vomiting Painful bowel movements Itching, swelling, bleeding, or pain around the anus Causes Constipation can have many causes. These include: Diet low in fiber Too much dairy Not drinking enough liquids Lack of exercise or physical activity (especially true for older adults) Changes in lifestyle or daily routine, including , aging, work, and travel Frequent use or misuse of laxatives Ignoring the urge to have a bowel movement or delaying it until later Medicines, such as certain prescription pain medicines, iron supplements, antacids, certain antidepressants, and calcium supplements Diseases like irritable bowel syndrome, bowel obstructions, stroke, diabetes, thyroid disease, Parkinson disease, hemorrhoids, and colon cancer Complications Potential complications of constipation can include: Hemorrhoids Rectal bleeding from hemorrhoids or anal fissures (skin tears) Hernias Dependency on laxatives Chronic constipation Fecal impaction, a severe form of constipation in which a large amount of hard stool is in your rectum that you can't pass Bowel obstruction or perforation Home care All treatment should be done after talking with your healthcare provider. This is especially true if you have another medical problems, are taking prescription medicines, or are an older adult. Treatment most often involves lifestyle changes. You may also need medicines. Your healthcare provider will tell you which will work best for you. Follow the advice below to help avoid this problem in the future. Lifestyle changes These lifestyle changes can help prevent constipation: Diet. Eat a high-fiber diet, with fresh fruit and vegetables, and reduce dairy intake, meats, and processed foods Fluids. It's important to get enough fluids each day. Drink plenty of water when you eat more fiber. If you are on diet that limits the amount of fluid you can have, talk about this with your healthcare provider. Regular exercise. Check with your healthcare provider first. Medicines Take any medicines as directed. Some laxatives are safe to use only every now and then. Others can be taken on a regular basis. While laxatives don't cause bowel dependence, they are treating the symptoms. So your constipation may return if you don't make other changes. Talk with your healthcare provider or pharmacist if you have questions. Prescription pain medicines can cause constipation. If you are taking this kind of medicine, ask your healthcare provider if you should also take a stool softener. Medicines you may take to treat constipation include: Fiber supplements Stool softeners Laxatives Enemas Rectal suppositories Follow-up care Follow up with your healthcare provider if symptoms don't get better in the next few days. You may need to have more tests or see a specialist. Call 911 Call 911 if any of these occur: Trouble breathing Stiff, rigid abdomen that is severely painful to touch Confusion Fainting or loss of consciousness Rapid heart rate Chest pain When to seek medical advice Call your healthcare provider right away if any of these occur: Fever of 100.4 F (38 C) or higher, or as directed by your healthcare provider Failure to resume normal bowel movements Pain in your abdomen or back gets worse Nausea or vomiting Swelling in your abdomen Blood in the stool Black, tarry stool Involuntary weight loss Weakness 6885-1976 [employer]. [address] [place] [address]. All rights reserved. This information is not intended as a substitute for professional medical care. Always follow yourhealthcare professional's instructions. Additional Information VACCINATE! IT SAVES LIVES! Members of the community who have not yet received the COVID-19 vaccine and would like to receive it can visit one of [facility] vaccine clinics. There are many vaccine clinic locations within the [facility]. For locations and available times, please visit [email or web address]/. It is important to note that some COVID mobile vaccine clinics are held outdoors and may be canceled in rainy or stormy conditions. To learn more about pediatric vaccinations (ages 5-11), we invite you to visit the [facility] webpage. [email or web address]/[email or web address] [email or web address] learn more about the COVID-19 vaccine, we invite you to visit the CDC website for a list of frequently asked questions. https://www.cdc.gov/coronavirus/2019-ncov/vaccines/faq.html [facility] Patient Portal Access Instructions: Stay connected with your healthcare team and access your personal medical information anytime with the [employer] Patient Portal. If you would like a full copy of your medical records please contact the [facility] Medical Records Department Wednesday through Wednesday between 8a.m. and 4:30p.m. Please follow the directions below to access the portal: 1.Access the email account you provided upon registration to the [facility].2.Look for an invitation email from [facility].3.Open the email and access the invitation link: Accept Invitation to [facility].Fill in the required gomez to create your account. Sign into [email or web address] with your username and password that you created in the above steps to stay up to date. You can then view a summary of results, a summary of your visits, and the ability to download your summaries to your computer or send the information securely to a physician. Remember that your healthcare information is confidential, so carefully consider who you will allow to register on the [employer] Patient Portal for access to your information. You can also access the [facility] Patient Portal on the [employer]. Simply click on "Health Records" under "HealthData" and then click on the [employer] logo. HOW TO SAFELY DISPOSE OF PRESCRIPTION MEDICATIONS Please use one of the following methods to safely dispose of your unused medications. 1.Use a drug disposal kit: the drug disposal pouch allows you to safely discard your old and unuseddrugs. Ask your nurse to give you one when you are discharged.2.Visit a local take-back location: Many local pharmacies and police departments have programs that collect old and unwanted prescriptiondrugs. Call your local pharmacy or go to http://[employer].Lingohub/9M3Df4m to find one close to you.3.Make use of household items: Use cat litter or old coffee grounds to dispose medications if other options arenot available. Mix your drugs with these household products, seal them in an airtight container andthrow it into the garbage. Call [facility]: [phone] to be sure your drugs can be disposed of in this way. Some medicines may require a different approach.4.Never flush your medications down the toilet. IF YOU HAVE BEEN PRESCRIBED AN OPIOIDS FOR PAIN If you have been prescribed an opioid (such as hydrocodone, oxycodone or morphine), it is critical to understand the possible side effects and risks of opioid pain medications. Even when taken as directed, opioids can have several side effects including: Tolerance, meaning you might need to take more of a medication for the same pain relief. Nausea, vomiting and/or constipation. Sleepiness, dizziness, dry mouth, confusion, depression or itching. Physical dependence, meaning you have withdrawal symptoms when a medication is stopped ? this can develop within a few days. KNOW YOUR RESPONSIBILITIES It is important to know exactly how much and how often to take the opioid pain medications you are prescribed. Never take opioids in higher amounts or more often than prescribed. Do not combine opioids with alcohol or other drugs that cause drowsiness, such as benzodiazepines, also known as benzos,including diazepam and alprazolam, muscle relaxants or sleep aids. Never sell or share prescriptionopioids. This is illegal. Store opioids in a secure place and out of reach of others (including children, family, friends and visitors). The last page(s) of this document has been signed and retained as a CHART COPY Signatures Patient Education Materials Abdominal Pain, Unknown Cause, (Male) Constipation (Adult) Medication Leaflets polyethylene glycol 3350, docusate (oral/rectal) My discharge plan and instructions have been reviewed and explained to me and I,ANGELA VASQUEZ understand my current condition and have read and understand these discharge instructions. I havereceived a written copy of the plan/instructions. If I have questions, I am aware that I should contact my doctor. 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 However, if he is retaining urine and needs a Urology consult for testing and therapy recommendations he will need afull 30 min visit, and I need any past Urology provider notes if not [facility]. I have a 10 am opening 07/13/2023 tomorrow. The main issue he had when I saw him in 2020 was Pelvic Floor Dysfunction which can cause all of the current symptoms. He really needs a Pelvic Floor PT Consultation, he never followed- up after I got his records from outside provider to get the PFPT consult orders. That is basically may plan if he sees me in the office. I will look at PVR Urine sample and may do a culture pending UA results and symptoms. If he is not interested in PFPT then its not much I can do, unless the urine and cultures are different now, before he was given a bunch of antibiotics despite no urine cultures showing UTI. JEREMY [place], [place], SANDRO [facility] Work Phone: 1(375) 617-129006-03-2024 Note ORIGINAL EXAMINATION: CT OF THE ABDOMEN AND PELVIS WITH CONTRAST07/12/2023 6:[address] ABDOMEN/PELVIS WITH CONTRAST TECHNIQUE: CT of the abdomen and pelvis was performed with the administration of intravenous contrast. Multiplanar reformatted images are provided for review. Automated exposure control, iterative reconstruction, and/or weight based adjustment of the mA/kV was utilized to reduce the radiation dose to as low as reasonably achievable. COMPARISON: None available HISTORY: ORDERING SYSTEM PROVIDED HISTORY: Reason for Exam: pain FINDINGS: The size, density, and morphology of the liver, spleen, adrenals, kidneys, pancreas and unopacified loops of bowel are unremarkable. Benign left Liyah renal cyst. The opacified aorta demonstrates normal size and morphology without aneurysmal dilation or dissection. There are no enlarged lymph nodes by pathologic size criteria. Appendix is normal. Scattered diverticular noted without inflammatory changes. There is no free fluid within the pelvis. The bladder and pelvic organs have an unremarkable CT appearance. The osseous structures are without gross lytic or sclerotic lesion. The lung bases are clear. IMPRESSION: Diverticulosis without diverticulitis. Interpreted by: Ron Cortes MD Preliminary Report By: Ron Cortes MD Electronically signed By Ron Cortes MD Dictated Date: 07/12/2023 6:42:34 PM Prelim Date: 07/12/2023 6:52:27 PM Sign Date: 07/12/2023 6:52:27 PM Ordering Provider: [facility]06-03-2024 Telephone encounter Note* Telephone Encounter - Mary Beth Arteaga LPN - 07/12/2023 2:24 PM EDT Patient returned call and would like to see urology for a bladder scan to check for retention. No provider in urology today but nurse will check with office and contact patient if able to scan patient tomorrow. [facility]06-03-2024 Telephone encounter Note* Telephone Encounter - Michelle Bourne LPN - 07/12/2023 12:43 PM EDT Patient notified of providers message and verbalized understanding. Patient no normal BM since Wednesday and he hasn't used any treatment for constipation except he thought he wasn't drinking enough water so did drink 6-7 glasses of water yesterday and did have a normal BM. However, he woke up this morning with the same problem and the water didn't help. His concern is that he is having a colonoscopy on Wednesday and start prep tomorrow. He is asking if this is going to be a problem. Please advise [facility]06-03-2024 Telephone encounter Note* Telephone Encounter - Jolene Beavers MD - 07/12/2023 10:36 AM EDT Might be having urinary retention. Could have run off stool associated with constipation, and constipation could be causing issues with urinary retention. Not sure if related to Biaxin was given. Consider seeing urology if they have openings--they could do a bladder scan to see whether having significant urinary retention. To ER if pain too severe to wait to see them--in ER they could do statstudies and if having urinary retention, they can catheterize him then have outpatient follow up. Might be able to alleviate pain by treating constipation--see when had last normal BM or at least passed more than a small amount of stool. What has he tried for treating constipation Recommend appointment for further evaluation if symptoms not getting better. [facility]06-03-2024 Telephone encounter Note* Telephone Encounter - Mary Beth Arteaga LPN - 07/12/2023 10:18 AM EDT Ajit calling today with complaints of cramping/stiffness in the bladder area that he rates it 8:10on pain scale. Pain interrupts his sleep at times. Denies any urinary tract infection symptoms. He also had complaints of constipation although he states he has been having small amounts of diarrhea. He feels he is drinking plenty of fluids. Denies any fever. Does complain of no energy. Symptoms started over the weekend. Did see ENT and given Biaxin to treat some fluid behind his ear but only took 4 doses as he felt hewas having a reaction to this medication. Patient is questioning if symptoms are related to medications that he started last month. Patient will continue to take the amlodipine but will hold the atorvastatin and vitamin d until he hears further recommendations. [facility]05-20-2024 Telephone encounter Note* Telephone Encounter - Ave Arvizu LPN - 06/28/2023 10:48 AM EDT Pt called and he has his colonoscopy/EGD scheduled for 07-14-23 with [facility]. He was instructed by them to call his pcp for the prep golytely to be sent to his pharmacy, Pt reports they will be sending him instructions to his [facility]. Please advise pt if there is a problem. Ave Arvizu LPN [facility]05-20-2024 Miscellaneous Notes* Telephone Encounter - Ave Arvizu LPN - 06/28/2023 10:48 AM EDT Pt called and he has his colonoscopy/EGD scheduled for 07-14-23 with [facility]. He was instructed by them to call his pcp for the prep golytely to be sent to his pharmacy, Pt reports they will be sending him instructions to his MyChart. Please advise pt if there is a problem. Ave Arvizu LPN documented in [facility] Telephone encounter Note * Telephone Encounter - Mary Beth Arteaga LPN - 06/21/2023 9:39 AM EDT Patient aware and he is working on getting this scheduled. Will contact office if anything is needed, [facility]05-13-2024 Miscellaneous Notes* Telephone Encounter - Mary Beth Arteaga LPN - 06/21/2023 9:39 AM EDT Patient aware and he is working on getting this scheduled. Will contact office if anything is needed, * Telephone Encounter - Mary Beth Arteaga LPN - 06/18/2023 2:42 PM EDT LEFT MESSAGE FOR PATIENT TO CALL OFFICE. * Telephone Encounter - Brian Gibson APRN.CRUISE DIRECTOR - 06/18/2023 1:13 PM EDT Please let patient know that insurance is requiring a titration study to be done instead of using the autopap setting on a CPAP. This means he has to have a secondary sleep study done to determine CPAP settings. Order is placed. documented in [facility] Telephone encounter Note * Telephone Encounter - Mary Beth Arteaga LPN - 06/18/2023 2:42 PM EDT LEFT MESSAGE FOR PATIENT TO CALL OFFICE. [facility]05-10-2024 Telephone encounter Note* Telephone Encounter - Brian Gibson APRN.CNP - 06/18/2023 1:13 PM EDT Please let patient know that insurance is requiring a titration study to be done instead of using the autopap setting on a CPAP. This means he has to have a secondary sleep study done to determine CPAP settings. Order is placed. [facility]05-07-2024 NoteHNO ID: [id number] Author: BRIAN GIBSON APRN.CNP Service: ? Author Type: Nurse Practitioner Type: Progress Notes Filed: 06/15/2023 08:44 Note Text: SUBJECTIVE Emma Vasquez is a 57 year old male here today for a check up on his medical problems. Chief Complaint Patient presents with: Physical HPI Emma Vasquez is a 57 year old male. He is an established patient but has not been seen for routine follow up for some time. He was scheduled for a well exam today but has several concerns so we will post-pone that. Prior to his visit today he had labs done. Vitamin d is low, cholesterol better but still elevated. Concerns of feeling tired a lot, groggy and not focused. Still with some memory issues, getting worse with work, recall not great. 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 Seen with neurology with Claudine petersen. Work up included MRI of the brain and MRI was normal. Has not followed through with seeing ENT, getting hearing testing done, seeing sleep medicine or neuro psych testing. He did have a HSAT that did show sleep apnea but did not get set up for pap therapy. Smoking about a pack per day. Scheduled for July for colonoscopy. Some constipation issues. Some low abdominal pain off and on. Urine dip today normal. Prior CT of ABD/Pelvis about a year ago with hepatic steatosis and peripelvic left renal cysts but no other findings. Ultrasound of the bladder showed incidental gallbladder polyps, mild generalized bladder thickening. His medications were reviewed today and his list is now up to date. Medications Current Outpatient Medications Medication Sig CPAP/BIPAP/OTHER Type .CPAPSettings into a note to see current settings/supplies/DME information. atorvastatin (LIPITOR) 20 mg tablet Take 1 tablet by mouth once daily. Cholecalciferol, Vitamin D3, 50 mcg (2,000 unit) cap Take 1 capsule by mouth once daily. amLODIPine (NORVASC) 5 mg tablet Take 1 tablet by mouth once daily. varenicline (CHANTIX STARTING MONTH BOX) 0.5 mg (11)- 1 mg (42) tablet Take 0.5 mg by mouth once daily on Days 1 through 3, THEN 0.5 mg twice daily on Days 4 through 7, THEN 1 mg twice daily on Day 8 and thereafter [START ON 07/06/2023] varenicline (CHANTIX CONTINUING MONTH BOX) 1 mg tablet Take 1 tablet by mouth two times a day with meals. Patient should start on July 06, 2023. No current facility-administered medications for this visit. ALLERGIES Allergen Reactions Penicillins Unknown, Hives ACTIVE PROBLEM LIST Hypercholesterolemia - 05/22/2022 Moderate Episode of Recurrent Major Depressive Disorder (Hcc) - 04/01/2022 Multiple Renal Cysts - 04/01/2022 Primary Hypertension - 03/03/2022 Memory Difficulties - 03/03/2022 Internal Hemorrhoids - 03/03/2022 History of Colonic Polyps - 06/07/2017 Comment: 06/07/17 25 mm sessile polyp sigmoid colon. 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 Rec: 6mo follow up Tobacco Use - 05/12/2017 Social History Tobacco Use Smoking status: Every Day Packs/day: 1.00 Years: 17.00 Additional pack years: 0.00 Total pack years: 17.00 Types: Cigarettes Smokeless tobacco: Former Vaping Use Vaping Use: Never used Substance Use Topics Alcohol use: Yes Alcohol/week: 21.0 standard drinks of alcohol Types: 21 Cans of Beer (12oz) per week Drug use: Yes Comment: past use of crack and marijuana Review of Systems Respiratory: Negative. Cardiovascular: Negative. Gastrointestinal: Positive for abdominal pain and constipation. Negative for abdominal distention, diarrhea, nausea and vomiting. OBJECTIVE BP 144/108 Pulse 92 Ht 5' 7" (1.70m) Wt 165 lb (74.8kg) SpO2 99% BMI 25.84 kg/(m2). Physical Exam Vitals and nursing note reviewed. Constitutional: General: He is awake. He is not in acute distress. Appearance: Normal appearance. He is well-developed and well-groomed. He is not ill-appearing, toxic-appearing or diaphoretic. HENT: Head: Normocephalic. Right Ear: External ear normal. Left Ear: External ear normal. Nose: Nose normal. Eyes: General: Vision grossly intact. Conjunctiva/sclera: Conjunctivae normal. Pupils: Pupils are equal, round, and reactive to light. Neck: Vascular: No JVD. Trachea: Trachea normal. Cardiovascular: Rate and Rhythm: Normal rate and regular rhythm. Pulses: Normal pulses. Heart sounds: Normal heart sounds. No murmur heard. Pulmonary: Effort: Pulmonary effort is normal. No accessory muscle usage, prolonged expiration or respiratory distress. Breath sounds: Normal breath sounds. Musculoskeletal: Cervical back: Neck supple. Skin: General: Skin is warm and dry. Capillary Refill: Capillary refill takes less than 2 seconds. Neurological: General: No focal deficit present. Mental Status: He is alert and oriented to person, place, and time. Mental status is at baseline. Psychiatric: Attention and Perception: Attention and perception no (more content not included)...[facility]05-07-2024 History of Present illness Narrative* Brian Gibson APRN.[facility] - 06/15/2023 8:01 AM EDT SUBJECTIVE Emma Vasquez is a 57 year old male here today for a check up on his medical problems. Chief Complaint Patient presents with: Physical HPI Emma Vasquez is a 57 year old male. He is an established patient but has not been seen for routine follow up for some time. He was scheduled for a well exam today but has several concerns so we will post-pone that. Prior to his visit today he had labs done. Vitamin d is low, cholesterol better but still elevated. Concerns of feeling tired a lot, groggy and not focused. Still with some memory issues, getting worse with work, recall not great. 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 Seen with neurology with Claudine petersen. Work up included MRI of the brain and MRI was normal. Has not followed through with seeing ENT, getting hearing testing done, seeing sleep medicine or neuro psych testing. He did have a HSAT that did show sleep apnea but did not get set up for pap therapy. Smoking about a pack per day. Scheduled for July for colonoscopy. Some constipation issues. Some low abdominal pain off and on. Urine dip today normal. Prior CT of ABD/Pelvis about a year ago with hepatic steatosis and peripelvicleft renal cysts but no other findings. Ultrasound of the bladder showed incidental gallbladder polyps, mild generalized bladder thickening. His medications were reviewed today and his list is now up to date. Medications Current Outpatient Medications Medication Sig CPAP/BIPAP/OTHER Type .CPAPSettings into a note to see current settings/supplies/DME information. atorvastatin (LIPITOR) 20 mg tablet Take 1 tablet by mouth once daily. Cholecalciferol, Vitamin D3, 50 mcg (2,000 unit) cap Take 1 capsule by mouth once daily. amLODIPine (NORVASC) 5 mg tablet Take 1 tablet by mouth once daily. varenicline (CHANTIX STARTING MONTH BOX) 0.5 mg (11)- 1 mg (42) tablet Take 0.5 mg by mouth once daily on Days 1 through 3, THEN 0.5 mg twice daily on Days 4 through 7, THEN 1 mg twice daily on Day 8and thereafter [START ON 07/06/2023] varenicline (CHANTIX CONTINUING MONTH BOX) 1 mg tablet Take 1 tablet by mouth two times a day with meals. Patient should start on July 06, 2023. No current facility-administered medications for this visit. ALLERGIES Allergen Reactions Penicillins Unknown, Hives ACTIVE PROBLEM LIST Hypercholesterolemia - 05/22/2022 Moderate Episode of Recurrent Major Depressive Disorder (Hcc) - 04/01/2022 Multiple Renal Cysts - 04/01/2022 Primary Hypertension - 03/03/2022 Memory Difficulties - 03/03/2022 Internal Hemorrhoids - 03/03/2022 History of Colonic Polyps - 06/07/2017 Comment: 06/07/17 25 mm sessile polyp sigmoid colon. 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 Rec: 6mo follow up Tobacco Use - 05/12/2017 Social History Tobacco Use Smoking status: Every Day Packs/day: 1.00 Years: 17.00 Additional pack years: 0.00 Total pack years: 17.00 Types: Cigarettes Smokeless tobacco: Former Vaping Use Vaping Use: Never used Substance Use Topics Alcohol use: Yes Alcohol/week: 21.0 standard drinks of alcohol Types: 21 Cans of Beer (12oz) per week Drug use: Yes Comment: past use of crack and marijuana Review of Systems Respiratory: Negative. Cardiovascular: Negative. Gastrointestinal: Positive for abdominal pain and constipation. Negative for abdominal distention, diarrhea, nausea and vomiting. OBJECTIVE BP 144/108 Pulse 92 Ht 5' 7" (1.70m) Wt 165 lb (74.8kg) SpO2 99% BMI 25.84 kg/(m^2). Physical Exam Vitals and nursing note reviewed. Constitutional: General: He is awake. He is not in acute distress. Appearance: Normal appearance. He is well-developed and well-groomed. He is not ill-appearing, toxic-appearing or diaphoretic. HENT: Head: Normocephalic. Right Ear: External ear normal. Left Ear: External ear normal. Nose: Nose normal. Eyes: General: Vision grossly intact. Conjunctiva/sclera: Conjunctivae normal. Pupils: Pupils are equal, round, and reactive to light. Neck: Vascular: No JVD. Trachea: Trachea normal. Cardiovascular: Rate and Rhythm: Normal rate and regular rhythm. Pulses: Normal pulses. Heart sounds: Normal heart sounds. No murmur heard. Pulmonary: Effort: Pulmonary effort is normal. No accessory muscle usage, prolonged expiration or respiratory distress. Breath sounds: Normal breath sounds. Musculoskeletal: Cervical back: Neck supple. Skin: General: Skin is warm and dry. Capillary Refill: Capillary refill takes less than 2 seconds. Neurological: General: No focal deficit present. Mental Status: He is alert and oriented to person, place, and time. Mental status is at baseline. Psychiatric: Attention and Perception: Attention and perception normal. Mood and Affect: Mood and affect normal. Speech: Speech normal. Behavior: Behavior normal. Behavior is cooperative. Thought Content: Thought content normal. Cognition and Memory: Cognition and memory normal. Judgment: Judgment normal. ASSESSMENT/PLAN: 1. MICA (obstructive sleep apnea) - ICD9: 327.23, ICD10: G47.33 (primary diagnosis) Start CPAP to see if this helps with his tiredness and memory issues. - PAP THERAPY ORDER - CPAP/BIPAP/OTHER 2. Primary hypertension - ICD9: 401.9, ICD10: I10 - Uncontrolled - Start amlodipine - Recommend home blood pressure monitoring, to bring results to next visit - Encouraged sodium restriction, DASH or Mediterranean diet - Recommend regular aerobic exercise 3. Hypercholesterolemia - ICD9: 272.0, ICD10: E78.00 Restart Lipitor but can opt for 20 mg to see how it impacts his lipid panel. 4. Tobacco use - ICD9: 305.1, ICD10: Z72.0 - Cessation encouraged. - Physiologic and physical aspects of tobacco addiction as well as strategies for quitting were discussed. - Counseling was given focusing on the harmful effects of this addiction especially given the patient's medical condition(s) which will be worsened because of the chemicals in tobacco. - Prescription for Chantix given 5. Vitamin D deficiency - ICD9: 268.9, ICD10: E55.9 - CHOLECALCIFEROL (VITAMIN D3) 50 MCG (2,000 UNIT) CAPSULE 6. Lower abdominal pain - ICD9: 789.09, ICD10: R10.30 Urine dip negative, prior work up with CT and bladder ultrasound. He is getting a colonoscopy in about a month, also plan for orders for RUQ ultrasound with next visit to recheck on hepatic steatosisand gallbladder polyps. - UA DIP B/O 7. Gallbladder polyp - ICD9: 575.6, ICD10: K82.4 See #6 8. Hepatic steatosis - ICD9: 571.8, ICD10: K76.0 See #6 Portions of this note have been entered by ancillary staff. I have reviewed and when necessary edited, so that they are an adequate record of my encounter with this patient Please note that parts of this document were created using voice recognition software and therefore may contain grammatical errors. Patient verbalizes understanding of instructions from today's visit and in agreement with treatmentplan. Questions answered. Agrees to call the office if questions, concerns of issues with acute symptoms not improving or if they worsen. See diagnoses and orders for additional plan(s). Allergies and medications were reviewed, list was updated, and refills given if needed. Past medical, surgical, social, and family history reviewed and updated as appropriate. Encouraged proper diet & exercise as well as compliance with taking medications. Age- appropriate health preventative measures were discussed. Return in about 4 weeks (around 07/13/2023) for recheck on new medication.. Brian Gibson APRN-ALYSSA [facility] encounter Note * Telephone Encounter - Tori Torres - 06/01/2023 8:49 AM EDT Patient is scheduled for wellness exam with PCP on 06/14/23. Please submit necessary lab orders. Patient is ok with being notified through [employer]. [facility] Miscellaneous Notes* Telephone Encounter - Tori Torres - 06/01/2023 8:49 AM EDT Patient is scheduled for wellness exam with PCP on 06/14/23. Please submit necessary lab orders. Patient is ok with being notified through [employer]IM[employer]. [facility] Discharge instructions Patient Education 05/01/2023 22:11:32 Hypertension, Established Established High Blood Pressure High blood pressure (hypertension) is a chronic disease. Often, healthcare providers don t know what causes it. But it can be caused by certain health conditions and medicines. If you have high blood pressure, you may not have any symptoms. If you do have symptoms, they may include headache, dizziness, changes in your vision, chest pain, and shortness of breath. But even without symptoms, high blood pressure that s not treated raises your risk for heart attack, heart failure, and stroke. High blood pressure is a serious health risk and shouldn t be ignored. Blood pressure measurements are given as 2 numbers. Systolic blood pressure is the upper number. This is the pressure when the heart contracts. Diastolic blood pressure is the lower number. This is the pressure when the heart relaxes between beats. You will see your blood pressure readings written together. For example, a person with a systolic pressure of 118 and a diastolic pressure of 78 will have 118/78 written in the medical record. Blood pressure is categorized as normal, elevated, or stage 1 or stage 2 high blood pressure: Normal blood pressure is systolic of less than 120 and diastolic of less than 80 (120/80) Elevated blood pressure is systolic of 120 to 129 and diastolic less than 80 Stage 1 high blood pressure is systolic is 130 to 139 or diastolic between 80 to 89 Stage 2 high blood pressure is when systolic is 140 or higher or the diastolic is 90 or higher Home care If you have high blood pressure, follow these home care guidelines to help lower your blood pressure. If you are taking medicines for high blood pressure, these methods may reduce or end your need for medicines in the future. Start a weight-loss program if you are overweight. Cut back on how much salt you get in your diet. Here s how to do this: oDon t eat foods that have a lot of salt. These include olives, pickles, smoked meats, and salted potato chips. oDon t add salt to your food at the table. oUse only small amounts of salt when cooking. Start an exercise program. Talk with your healthcare provider about the type of exercise program that would be best for you. It doesn't have to be hard. Even brisk walking for 20 minutes 3 times a week is a good form of exercise. Don t take medicines that stimulate the heart. This includes many jcdh-wrh-ohxhaiu cold and sinus decongestant pills and sprays, as well as diet pills. Check the warnings about high blood pressure onthe label. Before buying any uygz-ujp-pfruvha medicines or supplements, always ask the pharmacist about the product's potential interaction with your high blood pressure and your high blood pressure medicines. Stimulants such as amphetamine or cocaine could be deadly for someone with high blood pressure. Never take these. Limit how much caffeine you get in your diet. Switch to caffeine-free products. Stop smoking. If you are a long-time smoker, this can be hard. Talk to your healthcare provider about medicines and nicotine replacement options to help you. Also, enroll in a stop-smoking program tomake it more likely that you will quit for good. Learn how to handle stress. This is an important part of any program to lower blood pressure. Learnabout relaxation methods like meditation, yoga, or biofeedback. If your provider prescribed medicines, take them exactly as directed. Missing doses may cause your blood pressure get out of control. If you miss a dose or doses, check with your healthcare provider or pharmacist about what to do. Consider buying an automatic blood pressure machine to check your blood pressure at home. Ask your provider for a recommendation. You can get one of these at most pharmacies. The [place] [employer] recommends the following guidelines for home blood pressure monitoring: Don't smoke or drink coffee for 30 minutes before taking your blood pressure. Go to the bathroom before the test. Relax for 5 minutes before taking the measurement. Sit with your back supported (don't sit on a couch or soft chair); keep your feet on the floor uncrossed. Place your arm on a solid flat surface (like a table) with the upper part of the arm at heartlevel. Place the middle of the cuff directly above the bend of the elbow. Check the monitor's instruction manual for an illustration. Take multiple readings. When you measure, take 2 to 3 readings one minute apart and record all of the results. Take your blood pressure at the same time every day, or as your healthcare provider recommends. Record the date, time, and blood pressure reading. Take the record with you to your next medical appointment. If your blood pressure monitor has a built-in memory, simply take the monitor with you to your next appointment. Call your provider if you have several high readings. Don't be frightened by a single high blood pressure reading, but if you get several high readings, check in with your healthcare provider. Note: When blood pressure reaches a systolic (top number) of 180 or higher OR diastolic (bottom number) of 110 or higher, seek emergency medical treatment. Follow-up care You will need to see your healthcare provider regularly. This is to check your blood pressure and to make changes to your medicines. Make a follow-up appointment as directed. Bring the record of yourhome blood pressure readings to the appointment. When to seek medical advice Call your healthcare provider right away if any of these occur: Blood pressure reaches a systolic (upper number) of 180 or higher OR a diastolic (bottom number) of110 or higher Chest pain or shortness of breath Severe headache Throbbing or rushing sound in the ears Nosebleed Sudden severe pain in your belly (abdomen) Extreme drowsiness, confusion, or fainting Dizziness or spinning sensation (vertigo) Weakness of an arm or leg or one side of the face You have problems speaking or seeing [id number] [employer]. [address] [place] [address]. All rights reserved. This information is not intended as a substitute for professional medical care. Always follow yourhealthcare professional's instructions. Follow Up Care 05/01/2023 21:09:39 With:JOSEPH ASTUDILLO Address: [address] [place] [address]- [phone] When:2-4 days [facility] 03-23-2024 Note Discharge Instructions Thank you for allowing [facility] to assist you with your healthcare needs. The following is importantdischarge information regarding your hospital visit. Diagnosis from Today's Visit Arm pain-swelling High blood pressure Noncompliance: medication regimen Pain in left arm What to Do Next Instructions from Your Care Team No qualifying data available. Post Acute Orders No qualifying data available. You Need to Schedule the Following Appointments Follow Up with JOSEPH ASTUDILLO When Within 2-4 days Where: [address] [place] [id number] [phone] Allergies penicillin Medications Please ask your primary doctor or pharmacist before taking any other medication not listed, including over the counter drugs, herbal medications, vitamins and or supplements as they may interact withyour home medications. What How Much When Why Instructions Last Dose Unchanged lisinopril (lisinopril 10 mg oral tablet) 1 tab(s) by mouth Every day Hypertension Duration: 14 Days Please take this list to your next doctor s visit. Bring all medications you take, including over the counter medications, herbals and other supplements with you to your doctor s visit. Patients and families are reminded to discard old lists and to update any records with all medication providers or retail pharmacies. Education Materials Established High Blood Pressure High blood pressure (hypertension) is a chronic disease. Often, healthcare providers don t know what causes it. But it can be caused by certain health conditions and medicines. If you have high blood pressure, you may not have any symptoms. If you do have symptoms, they may include headache, dizziness, changes in your vision, chest pain, and shortness of breath. But even without symptoms, high blood pressure that s not treated raises your risk for heart attack, heart failure, and stroke. High blood pressure is a serious health risk and shouldn t be ignored. Blood pressure measurements are given as 2 numbers. Systolic blood pressure is the upper number. This is the pressure when the heart contracts. Diastolic blood pressure is the lower number. This is the pressure when the heart relaxes between beats. You will see your blood pressure readings written together. For example, a person with a systolic pressure of 118 and a diastolic pressure of 78 will have 118/78 written in the medical record. Blood pressure is categorized as normal, elevated, or stage 1 or stage 2 high blood pressure: Normal blood pressure is systolic of less than 120 and diastolic of less than 80 (120/80) Elevated blood pressure is systolic of 120 to 129 and diastolic less than 80 Stage 1 high blood pressure is systolic is 130 to 139 or diastolic between 80 to 89 Stage 2 high blood pressure is when systolic is 140 or higher or the diastolic is 90 or higher Home care If you have high blood pressure, follow these home care guidelines to help lower your blood pressure. If you are taking medicines for high blood pressure, these methods may reduce or end your need for medicines in the future. Start a weight-loss program if you are overweight. Cut back on how much salt you get in your diet. Here s how to do this: oDon t eat foods that have a lot of salt. These include olives, pickles, smoked meats, and salted potato chips. oDon t add salt to your food at the table. oUse only small amounts of salt when cooking. Start an exercise program. Talk with your healthcare provider about the type of exercise program that would be best for you. It doesn't have to be hard. Even brisk walking for 20 minutes 3 times a week is a good form of exercise. Don t take medicines that stimulate the heart. This includes many pmqu-irf-htmnjff cold and sinus decongestant pills and sprays, as well as diet pills. Check the warnings about high blood pressure onthe label. Before buying any ygxx-tgi-quijles medicines or supplements, always ask the pharmacist about the product's potential interaction with your high blood pressure and your high blood pressure medicines. Stimulants such as amphetamine or cocaine could be deadly for someone with high blood pressure. Never take these. Limit how much caffeine you get in your diet. Switch to caffeine-free products. Stop smoking. If you are a long-time smoker, this can be hard. Talk to your healthcare provider about medicines and nicotine replacement options to help you. Also, enroll in a stop-smoking program tomake it more likely that you will quit for good. Learn how to handle stress. This is an important part of any program to lower blood pressure. Learnabout relaxation methods like meditation, yoga, or biofeedback. If your provider prescribed medicines, take them exactly as directed. Missing doses may cause your blood pressure get out of control. If you miss a dose or doses, check with your healthcare provider or pharmacist about what to do. Consider buying an automatic blood pressure machine to check your blood pressure at home. Ask your provider for a recommendation. You can get one of these at most pharmacies. The [place] [employer] recommends the following guidelines for home blood pressure monitoring: Don't smoke or drink coffee for 30 minutes before taking your blood pressure. Go to the bathroom before the test. Relax for 5 minutes before taking the measurement. Sit with your back supported (don't sit on a couch or soft chair); keep your feet on the floor uncrossed. Place your arm on a solid flat surface (like a table) with the upper part of the arm at heartlevel. Place the middle of the cuff directly above the bend of the elbow. Check the monitor's instruction manual for an illustration. Take multiple readings. When you measure, take 2 to 3 readings one minute apart and record all of the results. Take your blood pressure at the same time every day, or as your healthcare provider recommends. Record the date, time, and blood pressure reading. Take the record with you to your next medical appointment. If your blood pressure monitor has a built-in memory, simply take the monitor with you to your next appointment. Call your provider if you have several high readings. Don't be frightened by a single high blood pressure reading, but if you get several high readings, check in with your healthcare provider. Note: When blood pressure reaches a systolic (top number) of 180 or higher OR diastolic (bottom number) of 110 or higher, seek emergency medical treatment. Follow-up care You will need to see your healthcare provider regularly. This is to check your blood pressure and to make changes to your medicines. Make a follow-up appointment as directed. Bring the record of yourhome blood pressure readings to the appointment. When to seek medical advice Call your healthcare provider right away if any of these occur: Blood pressure reaches a systolic (upper number) of 180 or higher OR a diastolic (bottom number) of110 or higher Chest pain or shortness of breath Severe headache Throbbing or rushing sound in the ears Nosebleed Sudden severe pain in your belly (abdomen) Extreme drowsiness, confusion, or fainting Dizziness or spinning sensation (vertigo) Weakness of an arm or leg or one side of the face You have problems speaking or seeing [id number] [employer]. [address] [place] [address]. All rights reserved. This information is not intended as a substitute for professional medical care. Always follow yourhealthcare professional's instructions. Additional Information VACCINATE! IT SAVES LIVES! Members of the community who have not yet received the COVID-19 vaccine and would like to receive it can visit one of [facility] vaccine clinics. There are many vaccine clinic locations within the [facility]. For locations and available times, please visit [email or web address]/. It is important to note that some COVID mobile vaccine clinics are held outdoors and may be canceled in rainy or stormy conditions. To learn more about pediatric vaccinations (ages 5-11), we invite you to visit the [facility] webpage. [email or web address]/[email or web address] [email or web address] learn more about the COVID-19 vaccine, we invite you to visit the CDC website for a list of frequently asked questions. https://www.cdc.gov/coronavirus/2019-ncov/vaccines/faq.html [facility] Patient Portal Access Instructions: Stay connected with your healthcare team and access your personal medical information anytime with the [facility] Patient Portal. If you would like a full copy of your medical records please contact the [facility] Medical Records Department Wednesday through Wednesday between 8a.m. and 4:30p.m. Please follow the directions below to access the portal: 1.Access the email account you provided upon registration to the hospital.2.Look for an invitation email from [facility].3.Open the email and access the invitation link: Accept Invitation to [facility]4.Fill in the required gomez to create your account. Sign into [email or web address] with your username and password that you created in the above steps to stay up to date. You can then view a summary of results, a summary of your visits, and the ability to download your summaries to your computer or send the information securely to a physician. Remember that your healthcare information is confidential, so carefully consider who you will allow to register on the [facility] Patient Portal for access to your information. You can also access the [facility] Patient Portal on the [employer]. Simply click on "Health Records" under "HealthData" and then click on the [facility] logo. HOW TO SAFELY DISPOSE OF PRESCRIPTION MEDICATIONS Please use one of the following methods to safely dispose of your unused medications. 1.Use a drug disposal kit: the drug disposal pouch allows you to safely discard your old and unuseddrugs. Ask your nurse to give you one when you are discharged.2.Visit a local take-back location: Many local pharmacies and police departments have programs that collect old and unwanted prescriptiondrugs. Call your local pharmacy or go to http://[employer].Lingohub/2W1Zd6v to find one close to you.3.Make use of household items: Use cat litter or old coffee grounds to dispose medications if other options arenot available. Mix your drugs with these household products, seal them in an airtight container andthrow it into the garbage. Call [facility]: [phone] to be sure your drugs can be disposed of in this way. Some medicines may require a different approach.4.Never flush your medications down the toilet. IF YOU HAVE BEEN PRESCRIBED AN OPIOIDS FOR PAIN If you have been prescribed an opioid (such as hydrocodone, oxycodone or morphine), it is critical to understand the possible side effects and risks of opioid pain medications. Even when taken as directed, opioids can have several side effects including: Tolerance, meaning you might need to take more of a medication for the same pain relief. Nausea, vomiting and/or constipation. Sleepiness, dizziness, dry mouth, confusion, depression or itching. Physical dependence, meaning you have withdrawal symptoms when a medication is stopped ? this can develop within a few days. KNOW YOUR RESPONSIBILITIES It is important to know exactly how much and how often to take the opioid pain medications you are prescribed. Never take opioids in higher amounts or more often than prescribed. Do not combine opioids with alcohol or other drugs that cause drowsiness, such as benzodiazepines, also known as benzos,including diazepam and alprazolam, muscle relaxants or sleep aids. Never sell or share prescriptionopioids. This is illegal. Store opioids in a secure place and out of reach of others (including children, family, friends and visitors). The last page(s) of this document has been signed and retained as a CHART COPY Signatures Patient Education Materials Hypertension, Established Medication Leaflets My discharge plan and instructions have been reviewed and explained to me and IPEDRO CHRISTOPHERA understand my current condition and have read and understand these discharge instructions. I havereceived a written copy of the plan/instructions. If I have questions, I am aware that I should contact my doctor. 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 HISTORY: ORDERING SYSTEM PROVIDED HISTORY: Reason for Exam: chest pain FINDINGS: The cardiomediastinal silhouette appears normal. There is no focal consolidation. There is no pulmonary edema. There is no evidence of pleural effusion. There is no evidence of pneumothorax. No fracture is identified. IMPRESSION: No acute abnormality is identified. Interpreted by: Carlos Bright Preliminary Report By: Carlos Bright Electronically signed By Carlos Bright Dictated Date: 05/01/2023 10:04:41 PM Prelim Date: 05/01/2023 10:05:04 PM Sign Date: 05/01/2023 10:05:04 PM [facility] NoteSinus rhythm LAE, consider biatrial enlargement Left bundle branch block Electronic Signature: AMERICO DAVIS MD 05/01/2023 21:45:53[facility] 03-12-2024 Miscellaneous Notes* Telephone Encounter - Brian Gibson APRN.CNP - 04/20/2023 2:40 PM EDT Script sent. * Telephone Encounter - Lucía Rashid MA - 04/20/2023 12:13 PM EDT Pt scheduled for colonscopy on 05/13. Attempted to contact patient to inform him to NOT mix prep until indicated on instructions. Unable to reach, no answer and invalid VM Lucía Rashid MA * Telephone Encounter - Caitlyn Garcia - 04/20/2023 11:32 AM EDT Patient is requesting to have [facility] sent to [facility] [place] [address] His last one was mixed then not used do he will need a new prescription. Caitlyn Garcia [facility] Evaluation + Plan note Future Scheduled Tests Radiology* CT Low Dose Lung Cancer Screening (LDCT) 04/05/23 [facility] 01-22-2024 NoteHNO ID: [id number] Author: THERESE LEROY PA-C Service: ? Author Type: Physician Security Alarm Installer Type: Progress Notes Filed: 03/01/2023 13:20 Note Text: VIRTUAL VISIT FOLLOW UP Emma Vasquez [id number] has requested a video telemedicine follow-up visit. Emma Vasquez verbalized informed consent to proceed with the video telemedicine follow-up visit. Emma Vasquez was informed that the details of this video visit would be recorded as part of their electronic medical record. I have communicated my name and active licensure. The patient's identity and physical location were verified at the time of this visit. Either the patient or their legal union representative has been informed of the risks and benefits of -- and alternatives to -- treatment through a remote evaluation and consents to proceed with the evaluation remotely. Patient location at time of call: [place] No chief complaint on file. I had a virtual visit with Mr. Vasquez today for follow up of constipation. UPDATED HISTORY: Patient states he has not been able to schedule EGD or colonoscopy due to transportation issues. Would like to go to [place] for procedures and change sedation preference. Continues to have same issues, noted flatter/smaller stools with constipation. Feels he is not emptying his colon completely when having a BM. No brbpr or melena. No new medications, supplements or antibiotics. Maternal uncle had colon cancer. Current smoker, denies etoh or illicit drug use. Denies chronic NSAID use. Denies fevers/chills, chest pain, sob, n/v, hematemesis, hematochezia, melena, dysphagia, odynophagia or unintentional weight loss at this time. Answers submitted by the patient for this visit: Review of Systems Gastroenterology (Submitted on 03/01/2023) Fever: No Chills: No Night Sweats: No Unitentional Weight Change: No A Cough: No Difficulty Breathing: No Chest Pain: No Belly pain: Yes A feeling of fullness or have belly pain after eating: Yes Food getting stuck in your throat or chest after eating: No Nausea - that is, a feeling like you could vomit: No Regurgitation - that is, food or liquid coming back up into your throat or mouth without vomiting, or feel burning behind your breast bone: No Loss of appetite: No To throw up or vomit: No Blood in your stools: No Black tarry stools: No Loose or watery stools: No The feeling like you need to empty your bowels right away - that is, feel as if you would have an accident: No Bowel incontinence - that is, have an accident because you cannot make it to the bathroom in time: No Problems with straining while having bowel movements , hard or lumpy stools, or feel unfinished (that you have not passed all your stool): Yes Pain in rectum or anus during bowel movements: Yes Problems with jaundice - that is, yellow discoloration of your skin or eyes, now or in the past: No Problems with having to flush the toilet more than two times due to oily stool, or see stool floating with oil: No PAST MEDICAL HISTORY Diagnosis Date Essential hypertension Hemorrhoids History of colonic polyps 06/07/2017 06/07/17 25 mm sessile polyp sigmoid colon. 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 Rec: 6mo follow up Hypercholesterolemia 05/22/2022 Moderate episode of recurrent major depressive disorder (HCC) 04/01/2022 Multiple renal cysts 04/01/2022 Primary hypertension 03/03/2022 Smoker Tobacco use 05/12/2017 PAST SURGICAL HISTORY Procedure Laterality Date COLONOSCOPY FLX DX W/COLLJ SPEC WHEN PFRMD 06/07/2017 Colonoscopy FAMILY HISTORY Problem Relation Age of Onset Diabetes Mother Heart Father Hypertension Father Social History Tobacco Use Smoking status: Every Day Packs/day: 1.00 Years: 17.00 Additional pack years: 0.00 Total pack years: 17.00 Types: Cigarettes Smokeless tobacco: Former Vaping Use Vaping Use: Never used Substance Use Topics Alcohol use: Yes Alcohol/week: 21.0 standard drinks of alcohol Types: 21 Cans of Beer (12oz) per week Drug use: Yes Comment: past use of crack and marijuana Current Outpatient Medications Medication Sig Dispense Refill fluticasone (FLONASE) 50 mcg/actuation nasal spray Use 2 Sprays in each nostril once daily. Rinse mouth after use. (Patient not taking: Reported on 01/19/2023) 1 Each 1 atorvastatin (LIPITOR) 40 mg tablet Take 1 tablet by mouth once daily. (Patient not taking: Reported on 01/19/2023) buPROPion XL (WELLBUTRIN XL) 300 mg 24 hr tablet Take 1 tablet by mouth once daily. (Patient not taking: Reported on 01/19/2023) 90 tablet 1 Cholecalciferol, Vitamin D3, 50 mcg (2,000 unit) cap Take 1 capsule by mouth once daily. (Patient not taking: Reported on 01/19/2023) [address] (PROTONIX) 40 mg tablet Take 1 tablet by mouth once daily. (Patient not taking: Reported on 01/19/2023) 30 tablet 0 No current facility-administered medications for this visit. A (more content not included)...[facility]12-12-2023 History of Present illness Narrative* Roberto Espinoza APRN.CRUISE DIRECTOR - 01/19/2023 11:04 AM EST Subjective HPI HPI Emma Vasquez is a 57 year old male who presents today for CC of pelvic pressure, urinary frequency. This started 2 days ago. Has tried nothing for relief. Symptoms are worsened when having bowel movement. Denies abdominal pain/testicular pain. .Patient presents with: Pelvic Pain: pelvic pressure x 2 days PAST MEDICAL HISTORY Diagnosis Date Essential hypertension Hemorrhoids History of colonic polyps 06/07/2017 06/07/17 25 mm sessile polyp sigmoid colon. 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 Rec: 6mo follow up Hypercholesterolemia 05/22/2022 Moderate episode of recurrent major depressive disorder (HCC) 04/01/2022 Multiple renal cysts 04/01/2022 Primary hypertension 03/03/2022 Smoker Tobacco use 05/12/2017 PAST SURGICAL HISTORY Procedure Laterality Date COLONOSCOPY FLX DX W/COLLJ SPEC WHEN PFRMD 06/07/2017 Colonoscopy ALLERGIES Penicillins MEDICATIONS fluticasone (FLONASE) 50 mcg/actuation nasal spray Use 2 Sprays in each nostril once daily. Rinse mouth after use. (Patient not taking: Reported on 01/19/2023) atorvastatin (LIPITOR) 40 mg tablet Take 1 tablet by mouth once daily. (Patient not taking: Reported on 01/19/2023) buPROPion XL (WELLBUTRIN XL) 300 mg 24 hr tablet Take 1 tablet by mouth once daily. (Patient not taking: Reported on 01/19/2023) Cholecalciferol, Vitamin D3, 50 mcg (2,000 unit) cap Take 1 capsule by mouth once daily. (Patient not taking: Reported on 01/19/2023) pantoprazole DR (PROTONIX) 40 mg tablet Take 1 tablet by mouth once daily. (Patient not taking: Reported on 01/19/2023) FAMILY HISTORY Problem Relation Age of Onset Diabetes Mother Heart Father Hypertension Father Social History Tobacco Use Smoking status: Every Day Packs/day: 1.00 Years: 17.00 Additional pack years: 0.00 Total pack years: 17.00 Types: Cigarettes Smokeless tobacco: Former Vaping Use Vaping Use: Never used Substance Use Topics Alcohol use: Yes Alcohol/week: 21.0 standard drinks of alcohol Types: 21 Cans of Beer (12oz) per week Drug use: Yes Comment: past use of crack and marijuana ALLERGIES Penicillins Review of Systems Constitutional: Negative for chills, fever and weight loss. Respiratory: Negative for cough, shortness of breath and wheezing. Cardiovascular: Negative for chest pain and palpitations. Gastrointestinal: Negative for abdominal pain, blood in stool, constipation, diarrhea, heartburn, melena, nausea and vomiting. Genitourinary: Positive for frequency. Negative for dysuria, flank pain, hematuria and urgency. Musculoskeletal: Negative for myalgias. Objective Blood pressure 118/70, pulse 88, temperature 36.4 C (97.6 F), resp. rate 16, weight 73.5 kg (162 lb), SpO2 98%. Component Latest Ref Rng & Units 03/03/2022 Protein, Total 6.3 - 8.0 g/dL 7.6 Albumin 3.9 - 4.9 g/dL 4.7 Calcium 8.5 - 10.2 mg/dL 9.8 Bilirubin, Total 0.2 - 1.3 mg/dL 0.4 Alkaline Phosphatase 38 - 113 U/L 80 AST 14 - 40 U/L 23 ALT 10 - 54 U/L 20 Glucose 74 - 99 mg/dL 113 (H) BUN 9 - 24 mg/dL 15 Creatinine 0.73 - 1.22 mg/dL 0.87 Sodium 136 - 144 mmol/L 139 Potassium 3.7 - 5.1 mmol/L 4.3 Chloride 97 - 105 mmol/L 106 (H) CO2 22 - 30 mmol/L 20 (L) Anion Gap 9 - 18 mmol/L 13 eGFR >=60 mL/min/1.73m 101 Physical Exam Constitutional: General: He is not in acute distress. Appearance: Normal appearance. He is not toxic-appearing. Cardiovascular: Rate and Rhythm: Normal rate and regular rhythm. Heart sounds: Normal heart sounds. Pulmonary: Effort: Pulmonary effort is normal. Breath sounds: Normal breath sounds. Abdominal: General: Bowel sounds are normal. Palpations: Abdomen is soft. Tenderness: There is abdominal tenderness in the suprapubic area. Skin: General: Skin is warm and dry. ASSESSMENT/PLAN: 1. Pelvic pain - ICD9: [id number], ICD10: R10.2 Will treat for possible early prostatitis F/u with pcp for continued s/s Urgent f/u for worsening s/s. - UA DIP, URINE (POC) - URINE CULTURE - SULFAMETHOXAZOLE 800 MG-TRIMETHOPRIM 160 MG TABLET Roberto Espinoza APRN.CRUISE DIRECTOR documented [facility] History of Present illness Narrative* Brian Gibson APRN.CRUISE DIRECTOR - 07/15/2022 10:44 AM EDT SUBJECTIVE Emma Vasquez is a 56 year old male here today for acute concern. Chief Complaint Patient presents with: Recheck: Seen in urgent care 07/14/2022 for left ear pain. Treated with Z-Pk which is causing dizziness and work is asking when he will be able to return. HPI Emma Vasquez is a 56 year old male who presents today acutely for concerns of his ear infection causing lost sleep, dizziness. 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 He was seen in yesterday and diagnosed with right otitis medica. Started z pack. Needs a paper for when he can return [employer]. His medications were reviewed today and his list is now up to date. Medications Current Outpatient Medications Medication Sig azithromycin (ZITHROMAX) 250 mg tablet Take 2 tablets by mouth once daily for 1 day, THEN 1 tablet once daily for 4 days. fluticasone (FLONASE) 50 mcg/actuation nasal spray Use 2 Sprays in each nostril once daily. Rinse mouth after use. atorvastatin (LIPITOR) 40 mg tablet Take 1 tablet by mouth once daily. buPROPion XL (WELLBUTRIN XL) 300 mg 24 hr tablet Take 1 tablet by mouth once daily. Cholecalciferol, Vitamin D3, 50 mcg (2,000 unit) cap Take 1 capsule by mouth once daily. pantoprazole DR (PROTONIX) 40 mg tablet Take 1 tablet by mouth once daily. methylPREDNISolone (MEDROL, GIULIA,) 4 mg Dose-Pack Follow dosing instructions, take with food. No current facility-administered medications for this visit. ALLERGIES Allergen Reactions Penicillins Unknown, Hives ACTIVE PROBLEM LIST Hypercholesterolemia - 05/22/2022 Moderate Episode of Recurrent Major Depressive Disorder (Hcc) - 04/01/2022 Multiple Renal Cysts - 04/01/2022 Primary Hypertension - 03/03/2022 Memory Difficulties - 03/03/2022 Internal Hemorrhoids - 03/03/2022 History of Colonic Polyps - 06/07/2017 Comment: 06/07/17 25 mm sessile polyp sigmoid colon. 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 Rec: 6mo follow up Tobacco Use - 05/12/2017 Social History Tobacco Use Smoking status: Every Day Packs/day: 1.00 Years: 17.00 Pack years: 17.00 Types: Cigarettes Smokeless tobacco: Former Vaping Use Vaping Use: Never used Substance Use Topics Alcohol use: Yes Alcohol/week: 52.5 standard drinks Types: 21 Cans of Beer (12oz) per week Drug use: Yes Comment: past use of crack and marijuana Review of Systems HENT: Positive for ear pain. OBJECTIVE BP 130/90 Pulse 88 Wt 162 lb (73.5kg) SpO2 98% Physical Exam Vitals and nursing note reviewed. Constitutional: General: He is awake. He is not in acute distress. Appearance: Normal appearance. He is well-developed and well-groomed. He is not ill-appearing, toxic-appearing or diaphoretic. HENT: Head: Normocephalic. Right Ear: Hearing, tympanic membrane, ear canal and external ear normal. Tympanic membrane is not injected, erythematous or bulging. Left Ear: External ear normal. Tympanic membrane is injected and erythematous. Nose: Nose normal. Eyes: General: Vision grossly intact. Conjunctiva/sclera: Conjunctivae normal. Pupils: Pupils are equal, round, and reactive to light. Neck: Vascular: No JVD. Trachea: Trachea normal. Pulmonary: Effort: Pulmonary effort is normal. No accessory muscle usage, prolonged expiration or respiratory distress. Musculoskeletal: Cervical back: Neck supple. Skin: General: Skin is warm and dry. Capillary Refill: Capillary refill takes less than 2 seconds. Neurological: General: No focal deficit present. Mental Status: He is alert and oriented to person, place, and time. Mental status is at baseline. Psychiatric: Attention and Perception: Attention and perception normal. Mood and Affect: Mood and affect normal. Speech: Speech normal. Behavior: Behavior normal. Behavior is cooperative. Thought Content: Thought content normal. Cognition and Memory: Cognition and memory normal. Judgment: Judgment normal. ASSESSMENT/PLAN: 1. Other non-recurrent acute nonsuppurative otitis media, unspecified laterality - ICD9: 381.00, ICD10: H65.199 Diagnosed with right otitis media yesterday, that TM actually looks clear today but left is erythematous. Continue the zpack, if still having issues towards end of week can add medrol dose pack. [place] return to work Wednesday. - Supportive care with plenty of fluids, rest, and analgesia prn. - METHYLPREDNISOLONE 4 MG TABLETS IN A DOSE PACK Portions of this note have been entered by ancillary staff. I have reviewed and when necessary edited, so that they are an adequate record of my encounter with this patient Please note that parts of this document were created using voice recognition software and therefore may contain grammatical errors. Patient verbalizes understanding of instructions from today's visit and in agreement with treatmentplan. Questions answered. Agrees to call the office if questions, concerns of issues with acute symptoms not improving or if they worsen. Return if symptoms worsen or fail to improve, for Keep next scheduled appointment.. Brian Gibson APRN-ALYSSA documented [facility] History of Present illness Narrative* Hayden Conner APRN.CNP - 07/14/2022 9:31 AM EDT Subjective HPI Nontoxic-appearing male presents urgent care chief complaint right ear pain. Duration of symptoms 1week. Associated symptoms right ear pain. States did notice some drainage. This did stop the last few days. Pain has been staying persistent. History of ear infections this feels similar. No OTC medication use. No ear trauma or loss of hearing. Denies any fever body aches chills productive cough chest pain shortness of breath pleuritic pain hemoptysis nausea vomiting abdominal pain change in bowel or bladder habits. Past medical history prescription medication use and allergies reviewed. .Patient presents with: Ear Pain: left x 1 week PAST MEDICAL HISTORY Diagnosis Date Essential hypertension Hemorrhoids History of colonic polyps 06/07/2017 06/07/17 25 mm sessile polyp sigmoid colon. 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 Rec: 6mo follow up Hypercholesterolemia 05/22/2022 Moderate episode of recurrent major depressive disorder (HCC) 04/01/2022 Multiple renal cysts 04/01/2022 Primary hypertension 03/03/2022 Smoker Tobacco use 05/12/2017 PAST SURGICAL HISTORY Procedure Laterality Date COLONOSCOPY FLX DX W/COLLJ SPEC WHEN PFRMD 06/07/2017 Colonoscopy ALLERGIES Penicillins MEDICATIONS fluticasone (FLONASE) 50 mcg/actuation nasal spray Use 2 Sprays in each nostril once daily. Rinse mouth after use. atorvastatin (LIPITOR) 40 mg tablet Take 1 tablet by mouth once daily. buPROPion XL (WELLBUTRIN XL) 300 mg 24 hr tablet Take 1 tablet by mouth once daily. Cholecalciferol, Vitamin D3, 50 mcg (2,000 unit) cap Take 1 capsule by mouth once daily. pantoprazole DR (PROTONIX) 40 mg tablet Take 1 tablet by mouth once daily. azithromycin (ZITHROMAX) 250 mg tablet Take 2 tablets by mouth once daily for 1 day, THEN 1 tablet once daily for 4 days. FAMILY HISTORY Problem Relation Age of Onset Diabetes Mother Heart Father Hypertension Father Social History Tobacco Use Smoking status: Every Day Packs/day: 1.00 Years: 17.00 Pack years: 17.00 Types: Cigarettes Smokeless tobacco: Former Vaping Use Vaping Use: Never used Substance Use Topics Alcohol use: Yes Alcohol/week: 52.5 standard drinks Types: 21 Cans of Beer (12oz) per week Drug use: Yes Comment: past use of crack and marijuana BP 148/98 Pulse 78 Temp 36.2 C (97.2 F) Resp 16 Wt 73.5 kg (162 lb) SpO2 95% BMI 22.59 kg/m Review of Systems Constitutional: Negative for chills, fever and malaise/fatigue. HENT: Positive for ear pain. Negative for congestion, ear discharge, sinus pain and sore throat. Eyes: Negative for blurred vision, pain, discharge and redness. Respiratory: Negative for cough, hemoptysis, sputum production, shortness of breath, wheezing and stridor. Cardiovascular: Negative for chest pain. Gastrointestinal: Negative for abdominal pain, diarrhea, nausea and vomiting. Musculoskeletal: Negative for myalgias. Skin: Negative for itching and rash. Neurological: Negative for dizziness and headaches. Objective Physical Exam Constitutional: General: He is not in acute distress. Appearance: He is not diaphoretic. HENT: Head: Normocephalic. Jaw: No trismus, tenderness, swelling or pain on movement. Right Ear: Hearing, ear canal and external ear normal. No mastoid tenderness. Tympanic membrane is erythematous. Tympanic membrane is not bulging. Left Ear: Hearing, tympanic membrane, ear canal and external ear normal. No mastoid tenderness. Mouth/Throat: Lips: [place]. Mouth: Mucous membranes are moist. Pharynx: Oropharynx is clear. Uvula midline. No pharyngeal swelling, oropharyngeal exudate, posterior oropharyngeal erythema or uvula swelling. Eyes: Conjunctiva/sclera: Conjunctivae normal. Pupils: Pupils are equal, round, and reactive to light. Cardiovascular: Rate and Rhythm: Normal rate and regular rhythm. Heart sounds: Normal heart sounds. Pulmonary: Effort: Pulmonary effort is normal. No tachypnea, accessory muscle usage or respiratory distress. Breath sounds: Normal breath sounds. No stridor. No wheezing, rhonchi or rales. Abdominal: Palpations: Abdomen is soft. Tenderness: There is no abdominal tenderness. There is no guarding or rebound. Musculoskeletal: Cervical back: Normal range of motion and neck supple. No rigidity or tenderness. Lymphadenopathy: Cervical: No cervical adenopathy. Skin: General: Skin is warm and dry. Neurological: Mental Status: He is alert and oriented to person, place, and time. ASSESSMENT/PLAN: 1. Acute otitis media, right - ICD9: 382.9, ICD10: H66.91 Diagnosed with otitis media right ear. Placed on azithromycin. Patient was educated on supportive therapies. Patient will follow up with primary care provider as needed. Patient was instructed to immediately proceed to emergency room for any new, worsening, or symptoms lasting longer than anticipated. The patient's clinical presentation is otherwise unremarkable at this time. Based on exam and clinical finding, the patient is stable for discharge. Plan of care was discussed with patient. Patient verbalizes understanding and agrees to plan of care. This note was generated using [employer] software. It may contain errors in wording, punctuation, or spelling. Hayden Conner APRN.ALYSSA documented in this encounterT[facility]04-14-[facility]23 History of Present illness Narrative* Hay Rader MD - 05/22/2022 1:42 PM EDT This note was created using [employer]. Subjective Emma Vasquez is a 56 year old male. He had bladder fullness and went to [facility] where he was found to have hematuria, glucosuria, and fingerstick glucose of 250. He was treated for urinary tract infection and was feeling better. Review of Systems Constitutional: Negative for chills, fever and unexpected weight change. Gastrointestinal: Negative for abdominal pain, nausea and vomiting. Endocrine: Negative for polydipsia, polyphagia and polyuria. ACTIVE PROBLEM LIST Tobacco Use History of Colonic Polyps Primary Hypertension Memory Difficulties Internal Hemorrhoids Moderate Episode of Recurrent Major Depressive Disorder (Hcc) Multiple Renal Cysts Ventral Hernia Without Obstruction Or Gangrene Social History Tobacco Use Smoking status: Every Day Packs/day: 1.00 Years: 17.00 Pack years: 17.00 Types: Cigarettes Smokeless tobacco: Former Vaping Use Vaping Use: Never used Substance Use Topics Alcohol use: Yes Alcohol/week: 52.5 standard drinks Types: 21 Cans of Beer (12oz) per week Drug use: Yes Comment: past use of crack and marijuana Current Outpatient Medications Medication Sig fluticasone (FLONASE) 50 mcg/actuation nasal spray Use 2 Sprays in each nostril once daily. Rinse mouth after use. atorvastatin (LIPITOR) 40 mg tablet Take 1 tablet by mouth once daily. buPROPion XL (WELLBUTRIN XL) 300 mg 24 hr tablet Take 1 tablet by mouth once daily. Cholecalciferol, Vitamin D3, 50 mcg (2,000 unit) cap Take 1 capsule by mouth once daily. pantoprazole DR (PROTONIX) 40 mg tablet Take 1 tablet by mouth once daily. sulfamethoxazole-trimethoprim (BACTRIM DS) 800-160 mg per tablet Take 1 tablet by mouth twice dailyfor 3 days. No current facility-administered medications for this visit. Objective BP (P) 112/76 (BP Site: Left Arm, BP Position: Sitting, BP Cuff Size: Regular Adult) Pulse (P) 84 Wt (P) 73.5 kg (162 lb) BMI (P) 22.59 kg/m Physical Exam Constitutional: General: He is not in acute distress. Appearance: He is not ill-appearing. Pulmonary: Effort: Pulmonary effort is normal. Abdominal: Palpations: Abdomen is soft. There is no mass. Tenderness: There is no abdominal tenderness. There is no right CVA tenderness or left CVA tenderness. Hernia: No hernia is present. Musculoskeletal: Right lower leg: No edema. Left lower leg: No edema. Neurological: Mental Status: He is alert. Test results pertinent to today's visit were reviewed and discussed with the patient. Assessment and Plan 1. Urinary tract infection with hematuria, site unspecified - ICD9: 599.0, 599.70, ICD10: N39.0, R31.9 (primary diagnosis) Resolving. - SULFAMETHOXAZOLE 800 MG-TRIMETHOPRIM 160 MG TABLET - UA DIP, URINE (POC) 2. Glucosuria - ICD9: 791.5, ICD10: R81 Resolved. - UA DIP, URINE (POC) 3. Hyperglycemia - ICD9: 790.29, ICD10: R73.9 Mild. - HEMOGLOBIN A1C (POC) 4. Hypercholesterolemia - ICD9: 272.0, ICD10: E78.00 Treated. Hay Rader MD documented in this encounterT[facility]23 Miscellaneous Notes* Telephone Encounter - Ester Fischer Pss - 05/03/2022 9:32 AM EDT 3rd attempt to reach patient. LM for patient to call to schedule PAP TITRATION PSG (CPAP, BIPAP, ASV). My chart message also sent * Telephone Encounter - Kelley Delgado - 05/02/2022 1:55 PM EDT 2nd attempt to reach patient. LM for patient to call to schedule PAP TITRATION PSG (CPAP, BIPAP, ASV) * Telephone Encounter - Amanda Griffiths - 04/30/2022 8:28 AM EDT Called PT LVM to call back and schedule PAP TITRATION PSG (CPAP, BIPAP, ASV). Amanda DELGADO * Telephone Encounter - Tre Randle Ma - 04/27/2022 11:37 AM EDT Patient notified, verbalized understanding. Please contact to schedule. * Telephone Encounter - Brian Gibson APRN.CNP - 04/27/2022 7:33 AM EDT Please let patient know the home sleep apnea test does confirm he has sleep apnea, a titration study does need done to determine settings for a CPAP. I have placed that order. documented in this encounterT[facility]03-21-[facility]23 History of Present illness Narrative* Aleta Shepard MD - 04/28/2022 4:36 PM EDT HISTORY AND PHYSICAL Emma Vasquez 1965 REFERRING PHYSICIAN: Hay Rader MD CHIEF COMPLAINT: Consult (Colonoscopy consult) HPI: The patient is a 56 year old male referred for endoscopy. Emma notes blood in his stools. He notes hard bowel movements and admits to straining with bowel movements. He also notes hemorrhoids. He also notes lower abdominal cramping pain, intermittently. He also has esophageal reflux symptoms. He had a colonoscopy in 2018. Findings of about a cm tubulovillous adenoma. The patient notes no colon cancer in immediate family. PAST MEDICAL HISTORY Diagnosis Date Essential hypertension Hemorrhoids Smoker PAST SURGICAL HISTORY Procedure Laterality Date COLONOSCOPY FLX DX W/COLLJ SPEC WHEN PFRMD 06/07/2017 Colonoscopy Current Outpatient Medications Medication Sig fluticasone (FLONASE) 50 mcg/actuation nasal spray Use 2 Sprays in each nostril once daily. Rinse mouth after use. atorvastatin (LIPITOR) 40 mg tablet Take 1 tablet by mouth once daily. buPROPion XL (WELLBUTRIN XL) 300 mg 24 hr tablet Take 1 tablet by mouth once daily. Cholecalciferol, Vitamin D3, 50 mcg (2,000 unit) cap Take 1 capsule by mouth once daily. pantoprazole DR (PROTONIX) 40 mg tablet Take 1 tablet by mouth once daily. ALLERGIES: Penicillins PERSONAL HISTORY: Social History Tobacco Use Smoking status: Every Day Packs/day: 1.00 Years: 17.00 Pack years: 17.00 Types: Cigarettes Smokeless tobacco: Former Vaping Use Vaping Use: Never used Substance Use Topics Alcohol use: Yes Alcohol/week: 52.5 standard drinks Types: 21 Cans of Beer (12oz) per week Drug use: Yes Comment: past use of crack and marijuana FAMILY HISTORY Problem Relation Age of Onset Diabetes Mother Heart Father Hypertension Father The review of systems data was entered by the nurse and reviewed by sd Nursing Notes: Agnes Casiano RN 04/28/2022 9:44 AM Signed REVIEW OF SYSTEMS: General: The patient denies fatigue, denies weight loss, NOTES weight gain, denies feeling hot, anddenies feelings of cold. Eyes: The patient denies glaucoma, denies eye injury/surgery, wears glasses or contacts. Ear/Nose/Throat: The patient NOTES allergies, denies hayfever, denies ear infections, and denies bloody noses. Cardiovascular: The patient denies chest pain, denies heart disease, NOTES high blood pressure,denies cardiac stent, denies prior heart attack, denies irregular heart beat, denies high cholesterol, denies poor circulation, denies heart failure, other cardiac issues, denies claudication, denies coldfeet, denies peripheral arterial stent. Respiratory: The patient denies tuberculosis, denies pneumonia, denies frequent cough, denies pulmonary embolism, denies shortness of breath, and denies coughing up blood. Gastrointestinal: The patient denies difficulty swallowing, denies acid reflux, denies ulcers, denies vomiting, denies jaundice/hepatitis, denies gallbladder problems, denies black or tarry stools, NOTES hemorrhoids, NOTES bleeding from rectum, denies diverticulitis, denies constipation, denies diarrhea, denies loss of stool control, and NOTES hernias. Kidney/Bladder: The patient denies kidney stones, NOTES urine infections, and denies bloody urine. Skin: The patient denies a history of skin cancer, denies bleeding/changing moles, and denies a history of skin rash. Neurologic: The patient denies a history of epilepsy/convulsions, denies headaches, denies head/spinal injuries, and denies stroke/TIA. Psychiatric: The patient denies psychiatric medications, NOTES depression, and denies voices, denies substance abuse. Endocrine: The patient denies thyroid disorders, denies diabetes, and denies hormonal problems. Hematologic: The patient denies a history of bruising, denies bleeding, and denies anemia, denies blood clots. Infections: The patient denies a history of measles and mumps, denies rheumatic fever, and denies sexually transmitted diseases. Musculoskeletal: The patient denies back pain/injury, denies back problems, denies sciatica, deniesknee/foot trouble, denies arthritis, or denies gout. When was patient's last Mammogram screening? N/A Last Colonoscopy: 2018 Agnes Casiano RN PHYSICAL EXAMINATION: General: The patient is 56 year old male, well nourished, well hydrated in no acute distress. The patient is oriented to time, place, and person. VITALS: Blood pressure 126/84, pulse 96, temperature 36.7 C (98 F), height 180.3 cm (5' 11"), weight 77.4 kg (170 lb 9.6 oz), SpO2 96 %. Body mass index is 23.79 kg/m . Head: Normal cephalic, atraumatic Eyes: pupils are equally round, sclera are clear/anicteric Neck is supple with no tracheal deviation Respiratory: Normal respiratory excursion and pattern. Abdominal exam: benign Extremities: no clubbing, cyanosis or edema. Neuro: non focal Psych: normal mood Assessment IMPRESSION: history of colon polyps, blood in stools, ELINA PLAN: I have discussed the above with the patient. I have offered colonoscopy and EGD, possible biopsies I have explained the procedure to the patient. I have counseled the patient as to the risks of the procedure, including but not limited to: infection, bleeding, injury to any intrabdominal organs such as liver/spleen, perforation of the GI tract,inability to complete the procedure, complications of anesthesia, etc. - the patient understands. The patient was offered a surgery/procedure at a [facility]. The provider and patient have discussed in detail the risk of exposure to and/or potential harm posed by the COVID-19 viruswith having a surgery/procedure at this time versus the risk of delaying the surgery/procedure. It is not possible to know either the risk of delaying the surgery or procedure or chance of getting aninfection with perfect accuracy, but a joint decision was made between the patient and the providerto proceed at this time with the scheduled surgery/procedure. The patient wishes to proceed. I have answered all questions to the patient s satisfaction and the patient has no further questions. Diagnoses: (Z86.010) History of colonic polyps (primary encounter diagnosis) (K43.9) Ventral hernia without obstruction or gangrene (K21.00) Gastroesophageal reflux disease with esophagitis without hemorrhage I have confirmed and edited as necessary, the PFSH and ROS obtained by others. Consultation requested by Dr. Hay Rader for an opinion regarding patient's history of colon polyps/blood in stools/gastroesophageal reflux symptoms. My final recommendations will be communicated back to the requesting physician by way of shared Medical record or letter to requesting physician via US mail. Return to Clinic: The patient will be scheduled for upper and lower endoscopy at [facility]. My clinic staff has reviewed the colon cleansing preparation with the patient and given the patient written instructions. I spent a total of 32 minutes on the date of the service which included preparing to see the patient with review of any pertinent laboratory studies/radiological imaging/medical records, [id number] care, obtaining oral medical history from the patient in this encounter, counseling and educating the patient/family/caregiver, and ordering and/or scheduling of medications/tests/procedures,and completing appropriate medical documentation. Aleta Shepard MD documented in this encounterT[facility]03-21-2023 Nurse Note* Agnes Mccollumsaul RN - 04/28/2022 9:41 AM EDT REVIEW OF SYSTEMS: General: The patient denies fatigue, denies weight loss, NOTES weight gain, denies feeling hot, anddenies feelings of cold. Eyes: The patient denies glaucoma, denies eye injury/surgery, wears glasses or contacts. Ear/Nose/Throat: The patient NOTES allergies, denies hayfever, denies ear infections, and denies bloody noses. Cardiovascular: The patient denies chest pain, denies heart disease, NOTES high blood pressure,denies cardiac stent, denies prior heart attack, denies irregular heart beat, denies high cholesterol, denies poor circulation, denies heart failure, other cardiac issues, denies claudication, denies coldfeet, denies peripheral arterial stent. Respiratory: The patient denies tuberculosis, denies pneumonia, denies frequent cough, denies pulmonary embolism, denies shortness of breath, and denies coughing up blood. Gastrointestinal: The patient denies difficulty swallowing, denies acid reflux, denies ulcers, denies vomiting, denies jaundice/hepatitis, denies gallbladder problems, denies black or tarry stools, NOTES hemorrhoids, NOTES bleeding from rectum, denies diverticulitis, denies constipation, denies diarrhea, denies loss of stool control, and NOTES hernias. Kidney/Bladder: The patient denies kidney stones, NOTES urine infections, and denies bloody urine. Skin: The patient denies a history of skin cancer, denies bleeding/changing moles, and denies a history of skin rash. Neurologic: The patient denies a history of epilepsy/convulsions, denies headaches, denies head/spinal injuries, and denies stroke/TIA. Psychiatric: The patient denies psychiatric medications, NOTES depression, and denies voices, denies substance abuse. Endocrine: The patient denies thyroid disorders, denies diabetes, and denies hormonal problems. Hematologic: The patient denies a history of bruising, denies bleeding, and denies anemia, denies blood clots. Infections: The patient denies a history of measles and mumps, denies rheumatic fever, and denies sexually transmitted diseases. Musculoskeletal: The patient denies back pain/injury, denies back problems, denies sciatica, deniesknee/foot trouble, denies arthritis, or denies gout. When was patient's last Mammogram screening? N/A Last Colonoscopy: 2017 Agnes Casiano RN documented in this encounterT[facility]03-14-2023 History of Present illness Narrative* Katalina Prieto - 04/21/2022 12:27 PM EDT Sleep Study Check-In Documentation Date: April 21, 2022 Name: Emma Vasquez Comments: HST was returned in working order with all sleep questionnaires Katalina Prieto * Brian Orellana III, PhD - 04/15/2022 10:23 AM EST April 15, 2022 Standing PSG Orders signed in the last 90 days None Future PSG Orders signed in the last 90 days Ordered Auth. provider CONSULT TO SLEEP MEDICINE - ADULT [[id number]] 03/31/22 Claudine Calderon PA-C Assoc. diagnoses: Snoring [R06.83] Q: Does consulting provider have [facility] access?: A: Yes HOME SLEEP APNEA TEST (HSAT) [[id number]] 04/01/22 Brian Gibson APRN.CRUISE DIRECTOR Assoc. diagnoses: Sleep apnea, unspecified type [G47.30] Q: Indications: A: Obstructive sleep apnea Q: STOP-BANG conditions - Select All That Apply: A: GENDER = male A2: AGE > 50 A3: high blood PRESSURE Q: Current use of supplemental oxygen during sleep period?: A: No All Prior Sleep Studies (past 365 days) Some values may be hidden. Unless noted otherwise, only the newest values recorded on each date aredisplayed. Sleep Studies CONSULT TO SLEEP MEDICINE - ADULT Future Expected: Expires: 03/31/23 HOME SLEEP APNEA TEST (HSAT) Future Expected: Expires: 04/01/23 BMI Readings from Last 2 Encounters: 04/07/22 : 25.38 kg/m 04/01/22 : 24.57 kg/m PAST MEDICAL HISTORY Diagnosis Date Essential hypertension Hemorrhoids Smoker The medical record was reviewed to determine if the proposed sleep study conforms to the AASM Practice Parameters for the Indications for Polysomnography and Related Procedures, or if the sleep studyis indicated for other reasons. Indications for study: MICA suspected without comorbid medical or sleep disorders Sleep study to be performed: Home Sleep Apnea Test (HSAT) Special instructions: None-follow laboratory protocol [facility] Staff Note: I have read the above protocol, edited as needed, and agree to the plan. Brian Orellana III, PhD 1:58 PM, 04/15/2022 * Selene Pemberton - 04/15/2022 9:55 AM EST PLZ DO NOT CANCEL - PT CALLED TODAY [facility]# [id number], date shipped out 04/16/22 Tracking mailout: [id number] Tracking return: [id number] * Esperanza Recinos - 04/15/2022 7:46 AM EST April 15, 2022 An order has been received for Home Sleep Apnea Test (HSAT) from [facility] [facility] Staff. Visit prep complete. Comments :No The sleep study is scheduled for 05/05. Insurance: Payor: [employer] [place] [employer] / Plan: [employer] [place] [employer] / Product Type: Medicaid / Payer/Plan Subscr Sex Relation Sub. Ins. ID Effective Group Num 1. [employer] ME* RICARDO VASQUEZ* 1965 Male Self [id number] 05/10/19 [facility] [address] Esperanza Recinos documented in this encounterTogus [facility]03-13-2023 Instructions* Patient Instructions* Brian Gibson APRN.CNP - 04/20/2022 11:[address] [facility] ADDRESS: [address] [place] [address], [address] [place] [address] PHONE NUMBER: [facility] ADDRESS: [address] [place] [address], [place] [address] PHONE: documented in this encounterTogus [facility] Center03-13-2023 History of Present illness Narrative* Brian Gibson APRN.CNP - 04/20/2022 11:29 AM EDT SUBJECTIVE Emma Vasquez is a 56 year old male here today for a check up on his medical problems. Chief Complaint Patient presents with: Recheck HPI Emma Vasquez is a 56 year old male who presents for follow up. He was recently on amlodipine, had issues with left side pain, possible inflammation on left side of abdomen, pressing on rectumcausing a rectal pain and constipation. He stopped the medication and has been off of it about a week, pain slowly improving. He recently had a CT scan which incidentally noted left peripelvic renal cysts. Ultrasound showed left kidney with multiple peripelvic cysts. He is currently going to see general surgery for EGD and colonoscopy, wonders what needs done about the cysts. His medications were reviewed today and his list is now up to date. Medications Current Outpatient Medications Medication Sig fluticasone (FLONASE) 50 mcg/actuation nasal spray Use 2 Sprays in each nostril once daily. Rinse mouth after use. atorvastatin (LIPITOR) 40 mg tablet Take 1 tablet by mouth once daily. buPROPion XL (WELLBUTRIN XL) 300 mg 24 hr tablet Take 1 tablet by mouth once daily. Cholecalciferol, Vitamin D3, 50 mcg (2,000 unit) cap Take 1 capsule by mouth once daily. pantoprazole DR (PROTONIX) 40 mg tablet Take 1 tablet by mouth once daily. No current facility-administered medications for this visit. ALLERGIES Allergen Reactions Penicillins Unknown, Hives ACTIVE PROBLEM LIST Moderate Episode of Recurrent Major Depressive Disorder (Hcc) - 04/01/2022 Multiple Renal Cysts - 04/01/2022 Ventral Hernia Without Obstruction Or Gangrene - 04/01/2022 Primary Hypertension - 03/03/2022 Memory Difficulties - 03/03/2022 Internal Hemorrhoids - 03/03/2022 History of Colonic Polyps - 06/07/2017 Comment: 06/07/17 25 mm sessile polyp sigmoid colon. 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 Rec: 6mo follow up Tobacco Use - 05/12/2017 Social History Tobacco Use Smoking status: Every Day Packs/day: 1.00 Years: 17.00 Pack years: 17.00 Types: Cigarettes Smokeless tobacco: Former Vaping Use Vaping Use: Never used Substance Use Topics Alcohol use: Yes Alcohol/week: 52.5 standard drinks Types: 21 Cans of Beer (12oz) per week Drug use: Yes Comment: past use of crack and marijuana Review of Systems Constitutional: Negative. Respiratory: Negative. Cardiovascular: Negative. OBJECTIVE BP 130/98 Pulse 86 Wt 165 lb (74.8kg) SpO2 97% Physical Exam Vitals and nursing note reviewed. Constitutional: General: He is awake. He is not in acute distress. Appearance: Normal appearance. He is well-developed and well-groomed. He is not ill-appearing, toxic-appearing or diaphoretic. HENT: Head: Normocephalic. Right Ear: External ear normal. Left Ear: External ear normal. Nose: Nose normal. Eyes: General: Vision grossly intact. Conjunctiva/sclera: Conjunctivae normal. Pupils: Pupils are equal, round, and reactive to light. Neck: Vascular: No JVD. Trachea: Trachea normal. Cardiovascular: Rate and Rhythm: Normal rate and regular rhythm. Pulses: Normal pulses. Heart sounds: Normal heart sounds. No murmur heard. Pulmonary: Effort: Pulmonary effort is normal. No accessory muscle usage, prolonged expiration or respiratory distress. Breath sounds: Normal breath sounds. Abdominal: Tenderness: There is no right CVA tenderness or left CVA tenderness. Musculoskeletal: Cervical back: Neck supple. Skin: General: Skin is warm and dry. Capillary Refill: Capillary refill takes less than 2 seconds. Neurological: General: No focal deficit present. Mental Status: He is alert and oriented to person, place, and time. Mental status is at baseline. Psychiatric: Attention and Perception: Attention and perception normal. Mood and Affect: Mood and affect normal. Speech: Speech normal. Behavior: Behavior normal. Behavior is cooperative. Thought Content: Thought content normal. Cognition and Memory: Cognition and memory normal. Judgment: Judgment normal. ASSESSMENT/PLAN: 1. Primary hypertension - ICD9: 401.9, ICD10: I10 (primary diagnosis) - suboptimal control, monitor 3 months off of medication - Discontinue amlodipine (Norvasc) due to side effects - Encouraged dietary sodium restriction/DASH diet - Recommended regular aerobic exercise. - Recommend home blood pressure monitoring, to bring results in on next visit - Reviewed risks of HTN and principles of treatment - Goal of BP <140/90 - CONSULT TO NEPHROLOGY 2. Renal cyst, acquired, left - ICD9: 593.2, ICD10: N28.1 - CONSULT TO NEPHROLOGY 3. Ventral hernia without obstruction or gangrene - ICD9: 553.20, ICD10: K43.9 - CONSULT TO GENERAL SURGERY Portions of this note have been entered by ancillary staff. I have reviewed and when necessary edited, so that they are an adequate record of my encounter with this patient Please note that parts of this document were created using voice recognition software and therefore may contain grammatical errors. Patient verbalizes understanding of instructions from today's visit and in agreement with treatmentplan. Questions answered. Agrees to call the office if questions, concerns of issues with acute symptoms not improving or if they worsen. Return in about 3 months (around 07/21/2022) for Follow up on chronic conditions and medications.. Brian Gibson APRN-ALYSSA documented in this encounterTogus [facility]03-10-2023 Miscellaneous Notes* Telephone Encounter - Mary Beth Arteaga LPN - 04/17/2022 9:23 AM EST Patient scheduled 04/20/22. * Telephone Encounter - Brian Gibson APRN.ALYSSA - 04/17/2022 8:15 AM EST Can we please assist patient in moving up his follow up appointment to sometime next week? Thank you! documented in this encounterTogus Va [facility] Center02-28-2023 History of Present illness Narrative* Roberto Espinoza APRN.ALYSSA - 04/07/2022 10:54 AM EST Subjective HPI HPI Emma Vasquez is a 56 year old male who presents today for CC of left ear pain, crackling. This started 2 days ago. Has tried nothing for relief. Symptoms are worsened by nothing. Risk factors smoker. Denies uri symptoms. .Patient presents with: Ear Pain: Left ear pain x 2 days PAST MEDICAL HISTORY Diagnosis Date Essential hypertension Hemorrhoids Smoker PAST SURGICAL HISTORY Procedure Laterality Date COLONOSCOPY FLX DX W/COLLJ SPEC WHEN PFRMD 06/07/2017 Colonoscopy ALLERGIES Penicillins MEDICATIONS atorvastatin (LIPITOR) 40 mg tablet Take 1 tablet by mouth once daily. amLODIPine (NORVASC) 10 mg tablet Take 1 tablet by mouth once daily. buPROPion XL (WELLBUTRIN XL) 300 mg 24 hr tablet Take 1 tablet by mouth once daily. Cholecalciferol, Vitamin D3, 50 mcg (2,000 unit) cap Take 1 capsule by mouth once daily. fluticasone (FLONASE) 50 mcg/actuation nasal spray Use 2 Sprays in each nostril once daily. Rinse mouth after use. predniSONE (DELTASONE) 20 mg tablet Take 2 tablets by mouth once daily for [address] (PROTONIX) 40 mg tablet Take 1 tablet by mouth once daily. FAMILY HISTORY Problem Relation Age of Onset Diabetes Mother Heart Father Hypertension Father Social History Tobacco Use Smoking status: Every Day Packs/day: 1.00 Years: 17.00 Pack years: 17.00 Types: Cigarettes Smokeless tobacco: Former Vaping Use Vaping Use: Never used Substance Use Topics Alcohol use: Yes Alcohol/week: 52.5 standard drinks Types: 21 Cans of Beer (12oz) per week Drug use: Yes Comment: past use of crack and marijuana ROS Objective Blood pressure 142/86, pulse 98, temperature 36.4 C (97.5 F), temperature source Tympanic, resp. rate 16, weight 76.8 kg (169 lb 6.4 oz), SpO2 98 %. Physical Exam Constitutional: General: He is not in acute distress. Appearance: He is not toxic-appearing or diaphoretic. HENT: Head: Normocephalic and atraumatic. Right Ear: Hearing, tympanic membrane, ear canal and external ear normal. Left Ear: Hearing, tympanic membrane, ear canal and external ear normal. Nose: Nose normal. Mouth/Throat: Lips: [place]. Mouth: Mucous membranes are moist. Pulmonary: Effort: Pulmonary effort is normal. No accessory muscle usage or respiratory distress. Lymphadenopathy: Cervical: No cervical adenopathy. Right cervical: No superficial cervical adenopathy. Left cervical: No superficial cervical adenopathy. Neurological: Mental Status: He is alert and oriented to person, place, and time. ASSESSMENT/PLAN: 1. ETD (Eustachian tube dysfunction), left - ICD9: 381.81, ICD10: H69.82 -use medication as prescribed -follow up if symptoms persist, worsen, change Smoking cessation discussed. - FLUTICASONE PROPIONATE 50 MCG/ACTUATION NASAL SPRAY,SUSPENSION - PREDNISONE 20 MG TABLET Roberto Espinoza APRN.ALYSSA documented in this encounterTogus Va [facility] Center02-22-2023 Miscellaneous Notes* Telephone Encounter - Marizol Butler LPN - 04/01/2022 3:38 PM EST Spoke with patient: Yes Confirmed date scheduled and patient report time: Yes Procedure Planned:Colonoscopy with or without biopsies based on clinical findings Is the patient on blood thinners?no Procedure Instructions given to patient: Yes, and they verbalized their understanding of instructions given Patient instructed to take prescribed preparation prior to procedure:Yes, and they verbalized theirunderstanding of instructions given Patient instructed to have family/friend present for procedure transport home:Patient/patient union representative was told that if they do not have a responsible adult accompany them to their procedure; and remain in the endoscopy area until they are discharged; that their procedure cannot be done with s edation or anesthesia and may be cancelled. and They verbalized their understanding and agree to have a responsible adult accompany the patient to their procedure and remain in the endoscopy area. Any barriers to Patient learning: Patient/Patient Crane Helper responded appropriately on phone. Type of instruction given: Verbal by telephone contact. Marizol Butler LPN [facility] History of Past illness Narrative* Problem Noted Date Resolved Date Ventral hernia without obstruction or gangrene 0 04/01/2022 05/22/2022 documented as of this encounter (statuses as of 05/23/2022) [facility] of Past illness Narrative* Problem Noted Date Resolved Date Ventral hernia without obstruction or gangrene 0 04/01/2022 05/22/2022 documented as of this encounter (statuses as of 07/14/2022) [facility] of Past illness Narrative* Problem Noted Date Resolved Date Ventral hernia without obstruction or gangrene 0 04/01/2022 05/22/2022 documented as of this encounter (statuses as of 07/15/2022) [facility] of Past illness Narrative* Problem Noted Date Diagnosed Date Resolved Date Ventral hernia without obstr uction or gangrene 04/01/2022 05/22/2022 documented as of this encounter (statuses as of 12/25/2022) [facility] of Past illness Narrative* Problem Noted Date Diagnosed Date Resolved Date Ventral hernia without obstr uction or gangrene 04/01/2022 05/22/2022 documented as of this encounter (statuses as of 01/19/2023) [facility] of Past illness Narrative* Problem Noted Date Diagnosed Date Resolved Date Ventral hernia without obstr uction or gangrene 04/01/2022 05/22/2022 documented as of this encounter (statuses as of 04/21/2023) [facility] of Present illness Narrative* Brian Gibson APRN.CRUISE DIRECTOR - 04/01/2022 7:36 AM EST Images from the original note were not included. SUBJECTIVE Emma Vasquez is a 56 year old male here today for a check up on his medical problems. Chief Complaint Patient presents with: Recheck: 4 week follow up Results: CT scan Question: neurology consult HPI Emma Vasquez is a 56 year old male who presents for follow up. Since last visit he was seenby neurology and seen in urgent care for rash which was suspected to be shingles. Neuro is planningto check an MRI, referred to sleep medicine for a sleep study for possible sleep apnea but not scheduled until September, referred to ENT for hearing issues. Some concerns for depression not being well controlled. On his Wellbutrin, still trying to quit smoking. He also went to ER at [facility] at one point since last visit and his blood pressure was high. His amlodipine was increased and he was started onatorvastatin. He had his ultrasound and CT scan done which showed no lymph node issues, there is a v entral hernia noted. Also noted on Ct are left renal cysts and hepatic steatosis. He notes today that he has a lump to left scalp behind ear. This seems to have increased in size. Not really bothersome. His medications were reviewed today and his list is now up to date. Medications Current Outpatient Medications Medication Sig atorvastatin (LIPITOR) 40 mg tablet Take 1 tablet by mouth once daily. amLODIPine (NORVASC) 10 mg tablet Take 1 tablet by mouth once daily. Cholecalciferol, Vitamin D3, 50 mcg (2,000 unit) cap Take 1 capsule by mouth once daily. buPROPion XL (WELLBUTRIN XL) 300 mg 24 hr tablet Take 1 tablet by mouth once daily. pantoprazole DR (PROTONIX) 40 mg tablet Take 1 tablet by mouth once daily. No current facility-administered medications for this visit. ALLERGIES Allergen Reactions Penicillins Unknown, Hives ACTIVE PROBLEM LIST Moderate Episode of Recurrent Major Depressive Disorder (Hcc) - 04/01/2022 Multiple Renal Cysts - 04/01/2022 Ventral Hernia Without Obstruction Or Gangrene - 04/01/2022 Primary Hypertension - 03/03/2022 Memory Difficulties - 03/03/2022 Internal Hemorrhoids - 03/03/2022 History of Colonic Polyps - 06/07/2017 Comment: 06/07/17 25 mm sessile polyp sigmoid colon. 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 Rec: 6mo follow up Tobacco Use - 05/12/2017 Social History Tobacco Use Smoking status: Every Day Packs/day: 1.00 Years: 17.00 Pack years: 17.00 Types: Cigarettes Smokeless tobacco: Former Vaping Use Vaping Use: Never used Substance Use Topics Alcohol use: Yes Alcohol/week: 52.5 standard drinks Types: 21 Cans of Beer (12oz) per week Drug use: Yes Comment: past use of crack and marijuana Review of Systems Constitutional: Negative. Respiratory: Negative. Cardiovascular: Negative. Neurological: Negative for dizziness, tremors, syncope, facial asymmetry, speech difficulty and light-headedness. Psychiatric/Behavioral: Positive for dysphoric mood and sleep disturbance. Negative for self-injuryand suicidal ideas. OBJECTIVE BP 134/90 Pulse 80 Wt 164 lb (74.4kg) SpO2 98% Physical Exam Vitals and nursing note reviewed. Constitutional: General: He is awake. He is not in acute distress. Appearance: Normal appearance. He is well-developed and well-groomed. He is not ill-appearing, toxic-appearing or diaphoretic. HENT: Head: Normocephalic. Right Ear: External ear normal. Left Ear: External ear normal. Nose: Nose normal. Eyes: General: Vision grossly intact. Conjunctiva/sclera: Conjunctivae normal. Pupils: Pupils are equal, round, and reactive to light. Neck: Vascular: No JVD. Trachea: Trachea normal. Cardiovascular: Rate and Rhythm: Normal rate and regular rhythm. Pulses: Normal pulses. Heart sounds: Normal heart sounds. No murmur heard. Pulmonary: Effort: Pulmonary effort is normal. No accessory muscle usage, prolonged expiration or respiratory distress. Breath sounds: Normal breath sounds. Musculoskeletal: Cervical back: Neck supple. Skin: General: Skin is warm and dry. Capillary Refill: Capillary refill takes less than 2 seconds. Neurological: General: No focal deficit present. Mental Status: He is alert and oriented to person, place, and time. Mental status is at baseline. Psychiatric: Attention and Perception: Attention and perception normal. Mood and Affect: Mood and affect normal. Speech: Speech normal. Behavior: Behavior normal. Behavior is cooperative. Thought Content: Thought content normal. Cognition and Memory: Cognition and memory normal. Judgment: Judgment normal. ASSESSMENT/PLAN: 1. Moderate episode of recurrent major depressive disorder (HCC) - ICD9: 296.32, ICD10: F33.1 (primary diagnosis) We will increase Wellbutrin, recheck in a few weeks and consider adding another agent if depressionstill persistent. - BUPROPION XL 300 MG 24 HR TAB 2. Memory difficulties - ICD9: 780.93, ICD10: R41.3 Following with neuro, work up with them, get MRI. 3. Tobacco use - ICD9: 305.1, ICD10: Z72.0 - Cessation encouraged. - Physiologic and physical aspects of tobacco addiction as well as strategies for quitting were discussed. - Counseling was given focusing on the harmful effects of this addiction especially given the patient's medical condition(s) which will be worsened because of the chemicals in tobacco. - Counseling was given 3-4 minutes. - Prescription for bupropion (Wellbutrin) given - BUPROPION XL 300 MG 24 HR TAB 4. Sleep apnea, unspecified type - ICD9: 780.57, ICD10: G47.30 STOP BANG assessment meets criteria for testing, Positive for snores at night, tired during the day, male gender, age over 50, high blood pressure. - HOME SLEEP APNEA TEST (HSAT) 5. Ventral hernia without obstruction or gangrene - ICD9: 553.20, ICD10: K43.9 Monitor, upcoming EGD with GI, will decide after if referral to general surgery is needed. 6. Multiple renal cysts - ICD9: 753.19, ICD10: Q61.02 Check ultrasound. - US KIDNEY/BLADDER 7. Primary hypertension - ICD9: 401.9, ICD10: I10 - fair control - Continue current medication(s) - Encouraged dietary sodium restriction/DASH diet - Recommended regular aerobic exercise. - Recommend home blood pressure monitoring, to bring results in on next visit - Reviewed risks of HTN and principles of treatment - Goal of BP <140/90 - AMLODIPINE 10 MG TABLET 8. Herpes zoster without complication - ICD9: 053.9, ICD10: B02.9 Rash resolved. 9. Epidermoid cyst of skin of scalp - ICD9: 706.2, ICD10: L72.0 Monitor, discussed considering I and D, decide at follow up. Portions of this note have been entered by ancillary staff. I have reviewed and when necessary edited, so that they are an adequate record of my encounter with this patient Please note that parts of this document were created using voice recognition software and therefore may contain grammatical errors. Patient verbalizes understanding of instructions from today's visit and in agreement with treatmentplan. Questions answered. Agrees to call the office if questions, concerns of issues with acute symptoms not improving or if they worsen. See diagnoses and orders for additional plan(s). Allergies and medications were reviewed, list was updated, and refills given if needed. Past medical, surgical, social, and family history reviewed and updated as appropriate. Encouraged proper diet & exercise as well as compliance with taking medications. Age- appropriate health preventative measures were discussed. Return in about 30 days (around 05/01/2022) for Follow up on chronic conditions and medications.. WADE Red [facility] Instructions* Patient Instructions* Claudine Calderon PA-C - 03/31/2022 9:58 AM EST MRI of the brain Hearing test Consult to ENT Consult to sleep medicine Neuropsychologic testing Follow with primary care tomorrow- discuss depression management, lump to left scalp Follow up in 3 months documented in [facility] History of Present illness Narrative* Claudine Calderon PA-C - 03/31/2022 9:06 AM EST Images from the original note were not included. Neurology Outpatient Clinic Date: March 31, 2022 Patient Name: Emma Vasquez Referring provider: Brian Gibson CNP [id number] [phone] Consult requested for memory issue by Brian Gibson CNP. Recommendations will be communicated via shared medical record or US mail. Primary provider: Brian Gibson CNP [address] [place] [address] Reason for Evaluation: memory issue Subjective HPI Emma Vasquez is a 56 year old left-handed male with history of HTN, tobacco use who presents for evaluation of memory issue. Brian Gibson CNP is the referring provider and the PCP. Patient presents for evaluation of memory issues. Onset 5 6 years ago, worsening over the last year. Notes that it began gradually, no acute onset, denies any history of stroke in the past. He notes that over the last year he has had 2 try and quit many different jobs due to difficulty with remembering instructions, where things go, how to do the specific task. He notes that he feels very anxious, noted that he cannot make it through his last orientation session because of anxiety with not being able to remember things. He has not worked since January 2022. He notes that more recently his memory has been affecting him at home, using his car keys and wallet. He notes that he lives with his g irlfriend, has left the stove on a few times, but she always catches this. He still drives, has notgotten lost. Long-term memory still intact. Patient denies any infections around time of onset, no stroke, patient does note that he quit smoking this week, notes a 20-year pack history. Patient alsonotes he used crack cocaine for 12 years, quit this 20 years ago. Patient does note that his handwriting has become more illegible, does not believe it is smaller. Denies any change to his sense of smell, denies any acting out dreams, denies hallucinations, denies tremor, denies any gait change. Hedoes note that he has had much stronger dreams lately, has been told that he talks through these. Oc casionally, he will feel that there is someone in the house when there is not. He also notes that his best friend recently told him that his personality has changed, increase in stubbornness and states that he is meaner. Patient denies any history of head injuries. Family history includes uncle with dementia, no early onset dementia in the family, no Parkinson's.Patient endorses working at many different jobs. 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 Has never been told that he has hearing loss. Patient notes history of depression, currently taking Wellbutrin but does not believe this is helping. Notes that his depression has worsened over the last year or so. Recent vitamin D level was at 20, patient notes of this being supplemented and has an appointment with his primary care provider tomorrow. Regarding sleep, patient sleeps about 5 hours a night, unsure why he wakes up. Patient does endorsesnoring that has been worsened over the last year, and does not 18 was seen by a sleep specialist where a sleep study was scheduled, never performed. He does not sleep with any CPAP machine, no formal diagnosis of sleep apnea. Labs/Imaging Vitamin B12 WNL TSH WNL Vitamin D- low at 20.1 Medications: Current Outpatient Medications Medication Sig Dispense Refill Cholecalciferol, Vitamin D3, 50 mcg (2,000 unit) cap Take 1 capsule by mouth once daily. 90 capsule3 buPROPion XL (WELLBUTRIN XL) 150 mg 24 hr tablet Take 1 tablet by mouth once daily. 30 tablet 2 amLODIPine (NORVASC) 5 mg tablet Take 1 tablet by mouth once daily. 30 tablet 2 hydrocortisone (ANUSOL-HC) 25 mg suppository 1 Suppository by RECTAL route twice daily as needed (hemorrhoids/rectal pain). (Patient not taking: Reported on 03/31/2022) [address] (PROTONIX) 40 mg tablet Take 1 tablet by mouth once daily. 30 tablet 0 No current facility-administered medications for this visit. ROS ROS: His ROS was positive for that mentioned in the HPI. Otherwise a 10-point ROS was completed andwas negative. ALLERGIES Allergen Reactions Penicillins Unknown, Hives Past Medical History: PAST MEDICAL HISTORY Diagnosis Date Essential hypertension Hemorrhoids Smoker Family History: FAMILY HISTORY Problem Relation Age of Onset Diabetes Mother Heart Father Hypertension Father Also includes: Father with lung cancer. Social History: Social History Tobacco Use Smoking status: Every Day Packs/day: 1.00 Years: 17.00 Pack years: 17.00 Types: Cigarettes Smokeless tobacco: Former Vaping Use Vaping Use: Never used Substance Use Topics Alcohol use: Yes Alcohol/week: 52.5 standard drinks Types: 21 Cans of Beer (12oz) per week Drug use: Yes Comment: past use of crack and marijuana Just quit smoking, no alcohol, no substance use recently. Used crack cocaine for 12 years, quit 20 years ago. Objective 03/31/22 0850 BP: 148/95 Pulse: 99 Resp: 16 Temp: 36.4 C (97.6 F) SpO2: 96% Weight: 74.4 kg (164 lb) Physical Examination MoCA total Visuospatial/executive: 04/12 Namin/3 Attention: 06/13 Language: 02/10 Abstraction: 02/09 Delayed recall: 02/12 orientation: 07/14 Throughout testing, patient needed repeat due to difficulty hearing, heard face as "safe", notes being in slow learner's group in school, 12 years education (one-point added) General Appearance: Well appearing, alert, in no acute distress, well-hydrated, well nourished. Head: Normocephalic Pulm: Breathing comfortably Neck: Supple Psych: Cooperative, depressed Neurological Examination: Mental Status: Alert and Oriented to Place, Person, Time and Situation and Patient follows commands.. Language: Is intact to Comprehension, Fluency and Repetition Cranial Nerves: CNII: Visual acuity normal, visual gomez full to confrontation CNIII, IV, : Pupils equal, round and reactive to light, full extraoccular movements, without nystagmus CN V: Facial sensation intact bilaterally to fine touch CN VII: Facial muscles strong, mild asymmetry with left facial droop minimally (patient believes this to be chronic) CN VIII: Hears finger rub well bilaterally, had to repeat often throughout appointment CN IX: Gag Reflex not examined CN X: Palate elevates symmetrically CN XI: Full strength shoulder shrug bilaterally CN XII: Tongue protrusion full and midline Motor Exam: Tone - Normal Tone noted in all extremities, no rigidity Bulk - Normal bulk noted in all muscles tested. Inspection - Normal, no fasciculations or tremors noted. Power: MUSCLES Upper Extremity RIGHT LEFT Deltoid 5/5 5/5 Biceps 5/5 5/5 Triceps 5/5 5/5 Wrist Extension 5/5 5/5 Wrist Flexion 5/5 5/5 Finger Flexion 5/5 5/5 Finger Extension 5/5 5/5 Finger Abd 5/5 5/5 Finger Add 5/5 5/5 MUSCLES Lower Extremity RIGHT LEFT Hip Flexion 5/5 5/5 Hip Extension 5/5 5/5 BiFem (Knee Flex) 5/5 5/5 Quads (Knee Ext) 5/5 5/5 Gastroc (Plantflx) 5/ 5/5 TibAnt (Dorsiflx) / 5/5 FlxHLong (Toe Flex) / 5/5 ExtHLong (Toe Ext) 5/ 5/5 Sensory Examination Sensation is intact to light touch, negative extinction to double simultaneous stimulation Reflexes Right Left Bicep 3/4 3/4 Tricep 3/4 3/4 BrRad 3/4 3/4 Knee 3/4 3/4 Ankle 3/4 3/4 Coordination: finger-to- nose-finger intact bilaterally and [id number] intact bilaterally. Gait: Patient's gait is normal, can heel and toe walk and can tandem walk. No shuffling Romberg: Negative DATA REVIEWED Actual films/image/tracing reviewed and summarized as follows: none Old records reviewed and summarized as follows: Internal medicine Assessment/Plan Assessment & Plan: Emma Vasquez is a 56 year old left-handed male with a history of hypertension, 12 year crack cocaine use, depression. His examination demonstrates hearing loss. MoCA of but with noted hearing difficulties of the test. Mild asymmetry of smile, patient believes this to be chronic, denies any incidence of stroke. Patient with gradual worsening of short-term memory over the last 5 years, worse over the last year. 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 Patient endorses history of likely sleep apnea in the past, never followed up with sleep study, snoring has worsened over the last few years and patient notes that he only gets about 5 hours of sleep at night. Patient also with history of depression, currently taking Wellbutrin but does not believe this is helping. Patient with signs and symptoms of mild cognitive impairment, however patient with hearing difficulty on exam and noticeable depression which may likely be contributing. Patient also with vitamin D level of 20, notes that this is being supplemented through primary care. Additionally, patient with history of sleep apnea, but never had official sleep test yvette never had this done, will refer to sleep medicine. Due to difficulty hearing throughout interview and MoCA, will refer to ENT and have audiology testing done. Regarding his depression, primary care manages this and patient notes he has an appointment tomorrow. Encouraged patient to talk about this at his appointment tomorrow, as depression likely contributes to his memory. At this time, clear etiology of patient's memory issues is not apparent, may be multifactorial including depression, lack of sleep, hearing loss. Patient also with 12-year history of crack cocaine use which may be contributing as well. No signs or symptoms of Parkinson's on exam, no history of stroke, patient denies any personality change, however, notes that his friend recently told him that he has become meaner lately. Patient was not overtly inappropriately emotional throughout MoCA or exam, did notice some depression. We will have patient complete additional neuropsychological testing as MoCA was consistent for , patient still driving. Educated on driving cessation until further work-up is done, patient acknowledged understanding to this. Will obtain MRI of the brain with volumetric analysis to look for signs of dementia, rule out any stroke. Patient agreeable to treatment plan of care at this time, all questions were answered. Patient to follow-up in 3 months or sooner should any symptoms change or worsen. Emma was seen today for new patient. Diagnoses and all orders for this visit: Mild cognitive impairment Hearing difficulty of both ears - CONSULT TO ENT; Future - HEARING TEST/AUDIOGRAM Snoring - CONSULT TO SLEEP MEDICINE - ADULT; Future Memory loss - NEUROPSYCHOLOGICAL TESTING CONSULT Dementia without behavioral disturbance (HCC) - MRI BRAIN WO IVCON; Future He should return to see me in 3 months. I spent a total of 55 minutes on the date of the service which included preparing to see the patient, [id number] patient care, completing clinical documentation, obtaining and/or reviewing separately obtained history, performing a medically appropriate examination, counseling and educating the pat ient/family/caregiver, and ordering medications, tests, or procedures. Claudine Calderon PA-C [facility] This document has been created with the use of voice recognition technology. It may contain inaccuracies: (e.g. misspellings, inaccurate syntax or word sense) that have escaped review. documented in this [facility]02[facility] History of Present illness Narrative* Dianna Thompson PA-C - 03/23/2022 10:30 AM EST Images from the original note were not included. This note was created using [employer]. Subjective Emma Vasquez is a 56 year old male. HPI Patient presents with a chief complaint of a rash on his left shoulder that he noticed this morning. Is painful and itchy. He did have chickenpox as a child. He was told once in 2018 that he may havehad shingles. He had that on his head. He denies any new soaps or detergents. He did start amlodipine 3 weeks ago. No other new medications. Denies anyone else around him having the rash. He states it feels like a burning pain on his shoulder. Review of Systems Constitutional: Negative. HENT: Negative. Respiratory: Negative. Cardiovascular: Negative. Gastrointestinal: Negative. Skin: Positive for rash. All other systems reviewed and are negative. PAST MEDICAL HISTORY Diagnosis Date Essential hypertension Hemorrhoids Smoker Current Outpatient Medications Medication Sig Dispense Refill Cholecalciferol, Vitamin D3, 50 mcg (2,000 unit) cap Take 1 capsule by mouth once daily. 90 capsule3 hydrocortisone (ANUSOL-HC) 25 mg suppository 1 Suppository by RECTAL route twice daily as needed (hemorrhoids/rectal pain). 60 Each 3 buPROPion XL (WELLBUTRIN XL) 150 mg 24 hr tablet Take 1 tablet by mouth once daily. 30 tablet 2 amLODIPine (NORVASC) 5 mg tablet Take 1 tablet by mouth once daily. 30 tablet 2 valACYclovir (VALTREX) 1 gram Take 1 tablet by mouth three times daily for 7 days. 21 tablet 0 triamcinolone acetonide (KENALOG) 0.1 % cream Apply 1 application to affected area three times daily for 7 days. Apply sparingly to area for rash/itching. [address] (PROTONIX) 40 mg tablet Take 1 tablet by mouth once daily. 30 tablet 0 No current facility-administered medications for this visit. PAST SURGICAL HISTORY Procedure Laterality Date COLONOSCOPY FLX DX W/COLLJ SPEC WHEN PFRMD 06/07/2017 Colonoscopy FAMILY HISTORY Problem Relation Age of Onset Diabetes Mother Heart Father Hypertension Father Social History Tobacco Use Smoking status: Every Day Packs/day: 1.00 Years: 17.00 Pack years: 17.00 Types: Cigarettes Smokeless tobacco: Former Vaping Use Vaping Use: Never used Substance Use Topics Alcohol use: Yes Alcohol/week: 52.5 standard drinks Types: 21 Cans of Beer (12oz) per week Drug use: Yes Comment: past use of crack and marijuana Objective BP 140/90 Pulse 83 Temp (!) 35.8 C (96.5 F) Resp 18 Wt 76.8 kg (169 lb 6.4 oz) SpO2 98% BMI 25.38 kg/m Physical Exam Vitals reviewed. Constitutional: Appearance: Normal appearance. HENT: Head: Normocephalic and atraumatic. Skin: General: Skin is warm and dry. Comments: Patient has a erythematous raised vesicular rash on the left shoulder blade. Tender on palpation. Neurological: Mental Status: He is alert. Assessment and Plan ASSESSMENT/PLAN: 1. Rash - ICD9: 782.1, ICD10: R21 Likely early shingles. Will start valtrex. Given triamcinolone cream for itch. Contagiousness discussed. Follow up with pcp as needed. Dianna Thompson PA-C [facility] Miscellaneous Notes* Telephone Encounter - Brian Gibson APRN.ALYSSA - 03/10/2022 7:49 AM EST Noted. * Telephone Encounter - Yesenia Baumann RN - 03/09/2022 3:13 PM EST Patient calls and is notified that CT scan needs to have testing done prior due to insurance. Patient voiced understanding. Patient wanted provider to know that he was admitted to [facility] a few days ago. Patient had EKG that was normal. Patient states that his blood pressure was high. Patient also had chest x ray done. Yesenia Baumann RN * Telephone Encounter - Mary Beth Arteaga LPN - 03/09/2022 1:08 PM EST LEFT MESSAGE FOR PATIENT TO CALL OFFICE. * Telephone Encounter - Brian Gibson APRN.CNP - 03/09/2022 12:51 PM EST Please call patient and let him know that insurance is requesting we do other testing prior to the CT scan. I have ordered ultrasounds of the area for initial testing. [facility] Hospital Discharge instructions Additional Inst[facility]: [facility] Phone: 1(647) 659-765301-26-[address] Vergara [facility] March 05, 2022 5:19am Note Date/Time March 05, 2022 4 :03am [facility] Medical Records Department [address] [place] [address] Emergency Department Summary 03/05/22 MR#: [id number] Acct: [id number] Name: EMMA VASQUEZ Rep #:[id number] : 1965 56 From: Jas Vergara MD PCP: RAJ Red Status:ADM EDSON Location: ICU ICU09-1 HPI History of Present Illness Chief Complaint: Chest Pain Informant: patient Onset/Context/Timing Onset: Hours (3) Activity at onset: gradual, onset, activity on onset and rest Timing: Continuous Quality: Positive for Tightness Location: Substernal Current Severity: Moderate Maximum Severity: Moderate Worsened By: Nothing; Not Worsened By Breathing Relieved By: Nothing Associated Symptoms: Positive for Dyspnea; Negative for Nausea, Vomiting, Diaphoresis, Fever, Lightheadedness or Palpitations Narrative Narrative: 56-year-old male, smoker but without medical problems until recently when his PCP diagnosed him with hypertension and hyperlipidemia, he started him on hypertension medication that he just got filled today and has not even started it yet, started having chest discomfort with tingling/numbness down his left upper extremity several hours prior to arrival has not gone away has been continuous since it started. Mild dyspnea. No near-syncope or syncope or palpitations. No diaphoresis. Never had any heart problems in the past, no history of a stress test. Family history of heart problems but not at ages 55 or younger that he knows of. He denies any weakness in his arm, just numbness/tingling. Denies any tingling elsewhere in his body. No headache or vision changes. No trouble ambulating or speaking. Prior Similar Symptoms: No CVD Risk Factors: Positive for Hypertension, Hypercholesterolemia and Smoking; Negative for Diabetes or Family History 1' </=55 PFSH PFSH Medical History HLD (hyperlipidemia) HTN (hypertension) Internal hemorrhoid, bleeding Tobacco use Home Medications amlodipine 5 mg tablet 5 mg PO DAILY 03/05/22 [History Last Taken Unknown] bupropion HCl 150 mg 24 hr tablet, extended release 150 mg PO DAILY 03/05/22 [History Last Taken Unknown] Allergy/AdvReac Type Severity Reaction Status Date / Time Penicillins Allergy Hives Verified 03/05/22 04:00 Family History (Updated 11/24/21 @ 13:04 by Guera Espinoza) Father Heart disease Diabetes Emphysema lung Mother Diabetes Uncle Colon cancer Surgical History (Updated 03/05/22 @ 04:[address] Maria Mathews MD) History of colonoscopy No history of previous surgery Social History (Updated 03/05/22 @ 04:[address] Maria Mathews MD) household members: significant other Smoking Status: Current every day smoker tobacco type: cigarettes Smoking packsper day: 1 Smoking cigarettes per day: 20.0 Years smoked: 31 Smoking pack- years:31.00 alcohol intake: current substance use type: does not use ROS ROS ED Constitutional Constitutional ED: Denies chills or fever(s) Eyes Eyes: Denies change in vision or diplopia ENT ENT ED: Denies rhinorrhea or sore throat Cardiovascular Cardiovascular: Reports chest pain; Denies palpitations Respiratory/Chest Respiratory/Chest: Reports dyspnea; Denies cough Gastrointestinal Gastrointestinal: Denies abdominal pain, diarrhea, nausea or vomiting Genitourinary Genitourinary ED: Denies dysuria or hematuria Musculoskeletal Musculoskeletal: Denies back pain or neck pain Integumentary Denies abscess or rash Neurologic Neurologic: Reports paresthesias; Denies headache(s) or weakness Psychiatric Psychiatric: Denies anxiety or suicidal thoughts EXAM Physical Exam Const Vital Signs: 03/05/22 04:01 03/05/22 03:59 03/05/22 04:04 Temperature 97.7 F L Temperature Source Temporal Pulse Rate 90 Respiratory Rate 17 Respiratory Effort Normal Blood Pressure 187/110 H Blood Pressure Mean 135 Pulse Ox 98 98 Oxygen Delivery Method Room Air Nasal Cannula 03/05/22 04:17 Temperature Temperature Source Pulse Rate 84 Respiratory Rate Respiratory Effort Blood Pressure 157/101 H Blood Pressure Mean Pulse Ox Oxygen Delivery Method Positive well nourished and well developed General Appearance ED: well developed and NAD HEENT Reports moist mucous membranes normocephalic and atraumatic Eyes PERRL and EOMs intact bilaterally Neck full ROM and supple Chest Wall inspection of chest normal and palpation of chest normal Resp normal respiratory effort and clear to auscultation bilaterally Cardio regular rate, regular rhythm and no murmurs Rate: Negative for tachycardic GI non-tender and non-distended Auscultation: normoactive bowel sounds Palpation: soft Back/Spine no CVA tenderness General Back: other FROM Extremity normal to inspection and no calf tenderness General Extremety ED: Negative for edema, pulses abnormal or tenderness General Extremity: Negative for edema or pulses abnormal Neuro oriented x3, CN's II-XII intact bilaterally, no sensory deficits noted and gait normal Sensorium / Orientation: awake and alert Motor Exam: strength 5/5 throughout Psych mental status grossly normal Skin no rashes or lesions noted and no wounds Heart Score History: Highly Suspicious ECG: Nonspecific Repolarization Age: >45 - <65 years Risk Factors: >/= 3 Risk Factors or History of CAD Troponin: </= Normal Limit Score: 6 MDM MDM MDM Narrative Medical decision making narrative: The patient's symptoms are concerning especially in context of a blood pressure 187/110, and hyperlipidemia that has not yet been treated (according to the patient), and being a longtime smoker. Additionally concerning is his EKG showing a left bundle branch block. There is no record of an old EKG on this patient. I applied the Aguero Modified Sgarbossa criteria as follows: Sgarbossa's Criteria for VA in Left Bundle Branch Block from [employer] on 03/05/2022 All calculations should be rechecked by clinician prior to use RESULT SUMMARY: 0 points In the original Sgarbossa criteria, a score of <3 typically is not considered diagnostic of acute VA, but also does not rule out VA. In concerning patients, repeating EKGs and cardiac enzymes may be helpful, along with cardiology consultation. NOTE: the Modified Sgarbossa Criteria (which changes the third criteria) does not use the points system, it is positive if any criteria are met. INPUTS: Concordant ST elevation > 1mm in leads with a positive QRS complex ?> 0 = No Concordant ST depression > 1 mm in V1-V3 ?> 0 = No Excessively discordant ST elevation (or depression) in leads with a negative QRS?> 0 = No In the anterior leads, this patient is deep S waves, and the ST elevation is 3- 4mm and the discordant ST elevation is approximately 14% of the depth of the S wave. Therefore, this patient does not qualify for a STEMI according to these criteria. Although his symptoms are concerning, he clinically appears well. After 4 baby aspirin and 1 nitroglycerin, his chest tightness is gone, he still has some mild tingling in his left upper extremity, but it is improved. Nitroglycerin paste 1 inch was placed on his chest. Initial troponin came back within normal limits at 7. The rest of his work-up was unremarkable. His 1 view chest x-ray on my interpretation is normal showinga narrow mediastinum, no pleural effusions, infiltrates, or other acute cardiopulmonary abnormality. Discussed with Dr. Mathews hospitalist will admit toobservation monitored bed for further evaluation she agrees that the patient is a high heart score and is high risk of having unstable angina here. While patient was awaiting a bed in the ED, staff noticed that his QRS complex seem to vary on the monitor. My interpretation of 1 particular rhythm strip wasthat the patient appeared to go in and out of a left bundle; his rhythm did not change. We were already repeating his EKG at that time just because his chest discomfort had resolved, and the EKG shows that he is still in a left bundle andit was basically unchanged compared with his initial 1. Lab Data Attestation: I reviewed the patient's lab results. Labs: Laboratory Results - last 24 hr 03/05/22 03/05/22 03/05/22 04:05 04:05 04:05 WBC 9.8 RBC 5.92 Hgb 18.0 H* Hct 53.6 MCV 90.5 MCH 30.4 MCHC 33.6 RDW Std Deviation 45.8 H RDW Coeff of Chidi 13.5 Plt Count 316 MPV 9.3 Immature Gran % (Auto) 0.600 Neut % (Auto) 47.3 Lymph % (Auto) 40.0 Vermillion % (Auto) 9.0 Eos % (Auto) 2.5 Baso % (Auto) 0.6 Absolute Neuts (auto) 4.6 Absolute Lymphs (auto) 3.90 Nucleated RBC % 0 APTT 32.1 Sodium 139 Potassium 4.0 Chloride 108 H Carbon Dioxide 25.0 Anion Gap 6 BUN 16 Creatinine 0.89 Estim Creat Clear Calc 98.71 Est GFR (MDRD) Af Amer 113 Est GFR (MDRD) Non-Af 94 BUN/Creatinine Ratio 17.9 Glucose 133 H Calcium 9.5 Magnesium Troponin I High Sens 7 03/05/22 04:05 WBC RBC Hgb Hct MCV MCH MCHC RDW Std Deviation RDW Coeff of Chidi Plt Count MPV Immature Gran % (Auto) Neut % (Auto) Lymph % (Auto) Vermillion % (Auto) Eos % (Auto) Baso % (Auto) Absolute Neuts (auto) Absolute Lymphs (auto) Nucleated RBC % APTT Sodium Potassium Chloride Carbon Dioxide Anion Gap BUN Creatinine Estim Creat Clear Calc Est GFR (MDRD) Af Amer Est GFR (MDRD) Non-Af BUN/Creatinine Ratio Glucose Calcium Magnesium 2.5 Troponin I High Sens Radiography Diagnostic Testing: Clinical Impression(s) from Imaging Studies Chest X-Ray 03/05/22 03:59 IMPRESSION: No radiographic evidence of acute cardiopulmonary disease. Electronically Signed: Prabhakar Robertson MD at 4:47 EST , Rhythm Strip Rhythm Strip: Sinus Rhythm Rate: 85 Ectopy: None EKG Initial EKG: Attestation: I personally reviewed and interpreted this EKG as follows: Interpretation: Sinus Rhythm, No Acute Injury Pattern and LBBB Prior: No Prior Follow-up EKG: Attestation: I personally reviewed and interpreted this EKG as follows: Interpretation: Sinus Rhythm, No Acute Injury Pattern and LBBB Comments: (when CP-free) Prior: Unchanged Discharge Plan Dx/Rx/DC Orders Clinical Impression: ACS (acute coronary syndrome) Disposition Disposition: [facility] What to do if you have Problems For any increased pain, shortness of breath, bleeding, nausea or vomiting, chestpain, or any unexpected problems, contact your Primary Care Provider. Call [facility] ([phone]) or report to the closest Emergency Room. Call 911 if necessary. 03/05/22 0519 <Electronically signed by Jas Vergara MD> Cosigner Signature (if applicable): CC: RAJ Gibson ~ Signed [facility] Work Phone: 1(216) 769-506301-26-2023 History and physical note Author Dr. Mathews [facility] March 05, 2022 5:08am Note Date/Time March 05, 2022 4 :50am [facility] Medical Records Department [address] [place] [address] H&P Exam - Hospitalist 03/05/22 0440 MR#: [id number] Acct: [id number] Name: EMMA VASQUEZ Rep #:[id number] : 1965 56 From: Maria Mathews MD PCP: RAJ Red Status:REG ER Location: ED HPI - General General Date of Service: 03/05/22 Chief Complaint: Chest pain HPI Narrative The patient is a 56 y/o M w/ PMHx: HTN, HLD, Tobacco use, recently placed on newBP medications and from discussions may have been off medications for some time,Issues with bleeding hemorrhoids with planned upcoming repeat endoscopies who presents to the [facility] ED on 03/05/22 with history of falling getting up at his normal hour of midnight while into his second cup of coffee onset of midsternal and left-sided chest discomfort described as a tightness rated 4 out of 10 in severity with a mild dry cough, dizziness as well as lightheadedness in additionto radiation of the discomfort into the left upper extremity with associated paresthesias noted the discomfort of the left upper extremity being mildly worsethan in the chest rating it 6 out of 10 in severity not resolving prompting eventual ED evaluation. In the ED patient initiated on nitroglycerin series andfollowing even just 1 sublingual nitroglycerin notes resolution of the chest discomfort and near resolution of the left upper extremity discomfort. Work-up in the ED included T97.7, heart rate 90, BP initially 187/110 with most recent repeat 157/101, respiratory rate 17, 98% on room air, CBC w/ WBC 9.8, Hgb 18, Plts 316 without shift, BMP with glucose 133 otherwise not marked appearing, troponin 7, chest x-ray prelim on hospitalist reviewed with no acute cardiopulmonary findings with final read pending, EKG with sinus rhythm with left bundle branch block of unclear chronicity with no acute evidence of ischemia. In the ED patient ministered nitroglycerin eventually placed on nitroglycerin ointment given symptomatic improvement as well as administration of aspirin full-strength therapy x1. PFSH Medical History HLD (hyperlipidemia) HTN (hypertension) Internal hemorrhoid, bleeding Tobacco use Home Medications amlodipine 5 mg tablet 5 mg PO DAILY 03/05/22 [History Last Taken Unknown] bupropion HCl 150 mg 24 hr tablet, extended release 150 mg PO DAILY 03/05/22 [History Last Taken Unknown] Allergy/AdvReac Type Severity Reaction Status Date / Time Penicillins Allergy Hives Verified 03/05/22 04:00 Family History (Updated 11/24/21 @ 13:04 by Guera Espinoza) Father Heart disease Diabetes Emphysema lung Mother Diabetes Uncle Colon cancer Surgical History (Updated 03/05/22 @ 04:[address] Maria Mathews MD) History of colonoscopy No history of previous surgery Social History (Updated 03/05/22 @ 04:[address] Maria Mathews MD) household members: significant other Smoking Status: Current every day smoker tobacco type: cigarettes Smoking packsper day: 1 Smoking cigarettes per day: 20.0 Years smoked: 31 Smoking pack- years:31.00 alcohol intake: current substance use type: does not use ROS ROS Narrative Admission Review of Systems: CONSTITUTIONAL: No weight loss, fever, chills, + weakness or fatigue. HEENT: Eyes: No visual loss, blurred vision, double vision or yellow sclerae. Ears, Nose, Throat: No hearing loss, sneezing, congestion, runny nose or sore throat. SKIN: No rash or itching, lesions, wounds. CARDIOVASCULAR: + Dizziness, lightheadedness chest pain, chest pressure or chestdiscomfort, No palpitations, edema, orthopnea, syncopal events. RESPIRATORY: + Transient cough. No shortness of breath, sputum, wheezing, hemoptysis. GASTROINTESTINAL: No anorexia, nausea, vomiting or diarrhea, abdominal pain, melena, BRBPR. GENITOURINARY: No dysuria, frequency, urgency or retention. NEUROLOGICAL: + Dizziness, lightheadedness, No headache, paralysis, ataxia, numbness or tingling in the extremities, focal weakness, change in bowel or bladder control, seizure. MUSCULOSKELETAL: + muscle, back pain, joint pain or stiffness. HEMATOLOGIC: + bleeding or bruising. LYMPHATICS: No enlarged nodes. No history of splenectomy. PSYCHIATRIC: No history of depression or anxiety. ENDOCRINOLOGIC: No reports of sweating, cold or heat intolerance. No polyuria orpolydipsia. ALLERGIES: No history of asthma, hives, eczema or rhinitis. Vital Signs Vital Signs Vital Signs: 03/05/22 04:01 03/05/22 03:59 03/05/22 04:04 Temperature 97.7 F L Temperature Source Temporal Pulse Rate 90 Respiratory Rate 17 Respiratory Effort Normal Blood Pressure 187/110 H Blood Pressure Mean 135 Pulse Ox 98 98 Oxygen Delivery Method Room Air Nasal Cannula 03/05/22 04:17 Temperature Temperature Source Pulse Rate 84 Respiratory Rate Respiratory Effort Blood Pressure 157/101 H Blood Pressure Mean Pulse Ox Oxygen Delivery Method Weight Weight: 166 lb 1.6 oz Body Mass Index (BMI) 23.1 Physical Exam Narrative Physical Examination: General: Awake, alert, oriented x 3 and cooperative, seated upright in the ED bed, chest discomfort resolved following nitroglycerin administration with the ED initiating nitroglycerin ointment patch Skin: Normal color, normal turgor, no icterus, no cyanosis. HEENT: AT/NC, EOMI, PERRLA, MMM, no carotid bruits or JVD noted. Lungs: CTA bilaterally, moderate effort, mild decrease BL bases, no rales, ronchi or wheezing. Heart: Currently regular rate and rhythm; no gallop, rub audible. Abdomen: Soft, NTTP, ND, distant normal BS, no HSM. Extremities: No cyanosis, clubbing, or edema. Neurological: Patient awake, alert, oriented as noted, cognitive function intact; pupils equally reactive to light and accommodation, cranial nerves II-XII grossly normal, moving all 4 extremities, no focal deficits, strength mildlyglobal decrease, improving given chest discomfort resolution Psychiatric: Affect appears fatigued, no acute evidence of depressive or anxietyfeelings. Results Lab / Micro Data Result Diagrams: 03/05/22 04:05 03/05/22 04:05 Labs: Laboratory Results - last 24 hr 03/05/22 04:05: APTT 32.1 Assessment & Plan Assessment/Plan (1) Chest pain: PLAN: Plan The patient is a 56 y/o M w/ PMHx: HTN, HLD, Tobacco use, recently placed on newBP medications and from discussions may have been off medications for some time,Issues with bleeding hemorrhoids with planned upcoming repeat endoscopies who presents to the [facility] ED on 03/05/22 with history of falling getting up at his normal hour of midnight while into his second cup of coffee onset of midsternal and left-sided chest discomfort described as a tightness rated 4 out of 10 in severity with a mild dry cough, dizziness as well as lightheadedness in additionto radiation of the discomfort into the left upper extremity. #1. Chest Pain: EKG in ED sinus rhythm with left bundle branch block of unclearchronicity with no acute evidence of ischemia, CXR w/ no obvious acute cardiopulmonary findings on prelim read however final read pending, initial trop7. Will admit to PCU, place on a monitored bed to assure no acute myocardial infarction with serial cardiac enzymes and EKGs. If repeat serial cardiac enzymes and EKGs remain unremarkable will pursue a.m. cardiac stress testing however if patient with significant recurrent discomfort or changes low threshold to involve cardiology given admission story line. Magnesium level requested. FLP in AM. ASA, NG, morphine. #2. Hypertension, uncontrolled: ED presentation with elevated BP, improved following repeat assessment, currently placed on NG paste which will be continued, continue recently transition amlodipine regimen, likely will need further regimen changes, as needed IV hydralazine also in interim. #3. Hyperlipidemia: Patient reportedly recently started on statin therapy, unclear dosing, will start atorvastatin in the interim, FLP in AM. #4. Tobacco Abuse: Encouraged cessation, inpatient consultation per RT, NR if desired, continue patient recently initiated bupropion regimen. #5. History of internal hemorrhoids: Awaiting CBC as noted, patient notes this has been an ongoing issue and is awaiting set up for outpatient endoscopy. #6. DVT prophylaxis: SCDs, Lovenox. Admission Evaluation Time spent evaluating chart, patient history, patient evaluation, care planning and discussion with specialists: 55 minutes. Charges/Coding Visit Charges Inpatient E&M: 66034 Init Hosp L2 03/05/22 6057 <Electronically signed by Maria Mathews MD> Hermelindo Signature (if applicable): CC: RAJ Gibson; Dr. Maria Mathews MD~ Signed [facility] Work Phone: 1(488) 394-491001-24-2023 History of Present illness Narrative* Brian Gibson EVERETT.CRUISE DIRECTOR - 03/03/2022 7:18 AM EST SUBJECTIVE mEma Vasquez is a 56 year old male here today to establish care. Chief Complaint Patient presents with: Establish Care Constipation: denies constipation but has rectal pain due to internal hemorrhoids. Has colonoscopy scheduled for 04/2022 Mass: in groin and above umbilicus Memory Loss: is seeing neuro 03/16/22 Nicotine Dependence: would like to stop but nothing has been effective HPI Emma Vasquez is a 56 year old male who presents to establish [facility]. Was being seen at [facility]. Some blood work sometime last year. History of hemorrhoids, high blood pressure (was on medicine sometime in the past) and a current smoker (he is motivated to quit). Some issues with possible hernias, stomach pain around belly button and groin area. Onset over a year ago. Sometimes worsening. Pain does not impact ADLs or ROM but has a dull pain. Appetite is good.Bowel movements normal. No prior hernias. Has not seen general surgery. Feels like things in the pelvis are tight. He also has issues with internal hemorrhoids, having some rectal pain, colonoscopy scheduled for in April. No constipation. Has done soaks in the bath tub, witch fady wipes, external applications. Suppositories have been helpful in past. Sees gastroTherese. Memory issues. Seeing neuro next month. Had a TSH and B12 about 6 months ago and they were normal. Some issues with recall. 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 He smokes. Currently smokes about a pack per day. Tried Wellbutrin. Did not help a whole lot at thetime but was not really trying to quit either. Did not have problems with this. His medications were reviewed today and his list is now up to date. Medications Current Outpatient Medications Medication Sig pantoprazole DR (PROTONIX) 40 mg tablet Take 1 tablet by mouth once daily. hydrocortisone (ANUSOL-HC) 25 mg suppository 1 Suppository by RECTAL route twice daily as needed (hemorrhoids/rectal pain). buPROPion XL (WELLBUTRIN XL) 150 mg 24 hr tablet Take 1 tablet by mouth once daily. amLODIPine (NORVASC) 5 mg tablet Take 1 tablet by mouth once daily. iv contrast (will be provided with radiology test) CT ABD/PEL -Inject, intravenously, once for 1 dose.No IV access, insert saline lock prior to the beginning of sedation, infusion, injection of imaging exam. Discontinue saline lock post exam. If Pt. has a central line or IVAD, may access for administration according to line specific nursing protocol. Once exam is complete flush line and de-accessaccording to line specific nursing protocol in the CT contrast administration guidelines link. No current facility-administered medications for this visit. ALLERGIES Allergen Reactions Penicillins Unknown, Hives ACTIVE PROBLEM LIST Primary Hypertension - 03/03/2022 Memory Difficulties - 03/03/2022 Internal Hemorrhoids - 03/03/2022 History of Colonic Polyps - 06/07/2017 Comment: 06/07/17 25 mm sessile polyp sigmoid colon. 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 Rec: 6mo follow up Tobacco Use - 05/12/2017 Social History Tobacco Use Smoking status: Every Day Packs/day: 1.00 Years: 17.00 Pack years: 17.00 Types: Cigarettes Smokeless tobacco: Former Vaping Use Vaping Use: Never used Substance Use Topics Alcohol use: Yes Alcohol/week: 52.5 standard drinks Types: 21 Cans of Beer (12oz) per week Drug use: Yes Comment: past use of crack and marijuana Review of Systems Respiratory: Negative. Cardiovascular: Negative. Gastrointestinal: Positive for abdominal pain and rectal pain. Negative for blood in stool, constipation, diarrhea, nausea and vomiting. OBJECTIVE BP 138/98 Pulse 98 Ht 5' 8.5" (1.74m) Wt 158 lb (71.7kg) SpO2 98% BMI 23.67 kg/(m^2). Physical Exam Vitals and nursing note reviewed. Constitutional: General: He is awake. He is not in acute distress. Appearance: Normal appearance. He is well-developed and well-groomed. He is not ill-appearing, toxic-appearing or diaphoretic. HENT: Head: Normocephalic. Right Ear: External ear normal. Left Ear: External ear normal. Nose: Nose normal. Eyes: General: Vision grossly intact. Conjunctiva/sclera: Conjunctivae normal. Pupils: Pupils are equal, round, and reactive to light. Neck: Vascular: No JVD. Trachea: Trachea normal. Pulmonary: Effort: Pulmonary effort is normal. No accessory muscle usage, prolonged expiration or respiratory distress. Abdominal: General: Bowel sounds are normal. There is no distension. Palpations: There is mass. There is no shifting dullness, fluid wave, hepatomegaly, splenomegaly orpulsatile mass. Tenderness: There is abdominal tenderness in the suprapubic area and left lower quadrant. There is no guarding or rebound. Negative signs include Carter's sign and McBurney's sign. Comments: He has scattered palpable masses in the inguinal area on the left and to the suprapubic area Musculoskeletal: Cervical back: Neck supple. Skin: General: Skin is warm and dry. Capillary Refill: Capillary refill takes less than 2 seconds. Neurological: General: No focal deficit present. Mental Status: He is alert and oriented to person, place, and time. Mental status is at baseline. Psychiatric: Attention and Perception: Attention and perception normal. Mood and Affect: Mood and affect normal. Speech: Speech normal. Behavior: Behavior normal. Behavior is cooperative. Thought Content: Thought content normal. Cognition and Memory: Cognition and memory normal. Judgment: Judgment normal. ASSESSMENT/PLAN: 1. Primary hypertension - ICD9: 401.9, ICD10: I10 (primary diagnosis) - suboptimal control - Begin amlodipine (Norvasc) - Encouraged dietary sodium restriction/DASH diet - Recommended regular aerobic exercise. - Follow up in 1 month for BP recheck. - Reviewed risks of HTN and principles of treatment - Goal of BP <140/90 - AMLODIPINE 5 MG TABLET 2. Memory difficulties - ICD9: 780.93, ICD10: R41.3 Repeat labs, seeing neuro soon. - DEPRESSION SCREENING/ASSESSMENT - CBC - COMP METABOLIC PANEL - VITAMIN D 25 HYDROXY - TSH BLD - VITAMIN B12 BLOOD 3. Tobacco use - ICD9: 305.1, ICD10: Z72.0 - Cessation encouraged. - Physiologic and physical aspects of tobacco addiction as well as strategies for quitting were discussed. - Counseling was given focusing on the harmful effects of this addiction especially given the patient's medical condition(s) which will be worsened because of the chemicals in tobacco. - Counseling was given 3-4 minutes. - Prescription for bupropion (Wellbutrin) given - BUPROPION XL 150 MG TAB 4. Internal hemorrhoids - ICD9: 455.0, ICD10: K64.8 Following with GI, hemorrhoids may be resulting in some reactive lymphadenopathy in the groin. - HYDROCORTISONE ACETATE 25 MG RECTAL SUPPOSITORY 5. Lymphadenopathy, inguinal - ICD9: 785.6, ICD10: R59.0 Palpable masses to the inguinal area consistent with a lymphadenopathy. - CT ABD/PEL W IVCON - IV CONTRAST (RADIOLOGY PROCEDURE) 6. Intra-abdominal and pelvic swelling, mass and lump, unspecified site - ICD9: 789.30, ICD10: R19.00 - CT ABD/PEL W IVCON - IV CONTRAST (RADIOLOGY PROCEDURE) 7. Left lower quadrant abdominal pain - ICD9: 789.04, ICD10: R10.32 - CT ABD/PEL W IVCON - IV CONTRAST (RADIOLOGY PROCEDURE) 8. Vitamin D deficiency - ICD9: 268.9, ICD10: E55.9 - VITAMIN D 25 HYDROXY 9. Screening for lipid disorders - ICD9: V77.91, ICD10: Z13.220 - LIPID PANEL BASIC 10. Encounter for therapeutic drug monitoring - ICD9: V58.83, ICD10: Z51.81 - CBC - COMP METABOLIC PANEL Portions of this note have been entered by ancillary staff. I have reviewed and when necessary edited, so that they are an adequate record of my encounter with this patient Please note that parts of this document were created using voice recognition software and therefore may contain grammatical errors. Patient verbalizes understanding of instructions from today's visit and in agreement with treatmentplan. Questions answered. Agrees to call the office if questions, concerns of issues with acute symptoms not improving or if they worsen. See diagnoses and orders for additional plan(s). Allergies and medications were reviewed, list was updated, and refills given if needed. Past medical, surgical, social, and family history reviewed and updated as appropriate. Encouraged proper diet & exercise as well as compliance with taking medications. Age- appropriate health preventative measures were discussed. Return in about 4 weeks (around 03/31/2022) for recheck on new medication.. WADE Red [facility] History of Present illness Narrative* Therese Leroy PA-C - 01/08/2022 10:27 AM EST Appointment scheduled in error. documented [facility] History of Present illness Narrative* Xenia Aguilar APRN.CNP - 12/20/2021 12:15 PM EST Subjective Cough Associated symptoms include chills and headaches. Pertinent negatives include no ear pain, no sore throat and no myalgias. Emma Vasquez is a 56 year old male who presents with cough and cold symptoms since last night. He has not taken any medication today. No known sick contacts. Fever (>100.4F): No Chills: YES Cough: YES Shortness of breath: No Difficulty breathing: No Fatigue: YES Muscle aches:No Headache: YES New loss of smell or taste: No Sore throat: No Nasal congestion: YES Rhinorrhea:YES Nausea: No Vomiting: No Diarrhea: YES Recent sick contacts: No Contact with anyone confirmed or probable COVID-19 infection in the last 14 days? No Family with confirmed COVID-19 infection? No Review of Systems Constitutional: Positive for chills and malaise/fatigue. Negative for fever. HENT: Positive for congestion. Negative for ear pain and sore throat. Respiratory: Positive for cough. Gastrointestinal: Positive for diarrhea. Negative for abdominal pain, nausea and vomiting. Musculoskeletal: Negative for myalgias. Neurological: Positive for headaches. BP 132/92 Pulse 110 Temp 36.2 C (97.1 F) Resp 18 Wt 74.1 kg (163 lb 6.4 oz) SpO2 96% BMI 22.79 kg/m PAST MEDICAL HISTORY Diagnosis Date Hemorrhoids PAST SURGICAL HISTORY Procedure Laterality Date COLONOSCOPY FLX DX W/COLLJ SPEC WHEN PFRMD 06/07/2017 Colonoscopy ALLERGIES Penicillins MEDICATIONS buPROPion SR (WELLBUTRIN SR) 150 mg 12 hr tablet One tablet daily X 3 days; then increase to twice daily. Stop smoking on day 5-7. benzonatate (TESSALON PERLE) 100 mg capsule Take 2 capsules by mouth three times daily as needed for up to 10 days. hydrocortisone (ANUSOL-HC) 25 mg suppository 1 Suppository by RECTAL route twice daily as needed (hemorrhoids/rectal pain). (Patient not taking: Reported on 12/20/2021) FAMILY HISTORY Problem Relation Age of Onset Diabetes Mother Heart Father Hypertension Father Social History Tobacco Use Smoking status: Every Day Packs/day: 1.00 Years: 17.00 Pack years: 17.00 Types: Cigarettes Smokeless tobacco: Former Vaping Use Vaping Use: Never used Substance Use Topics Alcohol use: Yes Alcohol/week: 52.5 standard drinks Types: 21 Cans of Beer (12oz) per week Drug use: Yes Comment: past use of crack and marijuana Objective Physical Exam Vitals and nursing note reviewed. Constitutional: Appearance: Normal appearance. HENT: Right Ear: Tympanic membrane, ear canal and external ear normal. Left Ear: Tympanic membrane, ear canal and external ear normal. Nose: Congestion present. Mouth/Throat: Mouth: Mucous membranes are moist. Pharynx: Oropharynx is clear. Uvula midline. No oropharyngeal exudate or posterior oropharyngeal erythema. Cardiovascular: Rate and Rhythm: Normal rate and regular rhythm. Heart sounds: Normal heart sounds. Pulmonary: Effort: Pulmonary effort is normal. No respiratory distress. Breath sounds: Normal breath sounds. No wheezing or rales. Skin: General: Skin is warm and dry. Findings: No erythema or rash. Neurological: Mental Status: He is alert. ASSESSMENT/PLAN: 1. Suspected COVID-19 virus infection - ICD9: V01.79, ICD10: Z20.822 - COVID WITH FLUA+B, ROUTINE - BENZONATATE 100 MG CAPSULE - Follow-up with your PCP in 3-5 days if symptoms have not improved or sooner if symptoms worsen - Discussed red flags and need for immediate medical evaluation if any occur. - Discussed supportive care treatment with fluids, rest and analgesia. - Discussed expected course of illness Xenia Aguilar APRN.CRUISE DIRECTOR [facility] Instructions* Patient Instructions* Xenia Aguilar APRN.CNP - 12/20/2021 12:14 PM EST ASSESSMENT/PLAN: 1. Suspected COVID-19 virus infection - ICD9: V01.79, ICD10: Z20.822 - COVID WITH FLUA+B, ROUTINE - BENZONATATE 100 MG CAPSULE - Follow-up with your PCP in 3-5 days if symptoms have not improved or sooner if symptoms worsen - Discussed red flags and need for immediate medical evaluation if any occur. - Discussed supportive care treatment with fluids, rest and analgesia. - Discussed expected course of illness Xenia Aguilar APRN.CRUISE DIRECTOR Beginning Home Isolation Isolation is used to separate people infected with SARS-CoV-2, the virus that causes COVID-19, frompeople who are not infected. People who are in isolation should stay home until it s safe for them to be around others. In the home, anyone sick or infected should separate themselves from others by staying in a specific sick room or area and using a separate bathroom (if available). Isolation or Quarantine: What's the difference? Quarantine keeps someone who might have been exposed to the virus away from others. Isolation keeps someone who is infected with the virus away from others, even in their home. Who needs to isolate People who have COVID-19 People who have symptoms of COVID-19 and are able to recover at home People who have no symptoms (are asymptomatic) but have tested positive for infection with SARS-CoV-2 Steps to take Stay home except to get medical care Monitor your symptoms. Stay in a separate room from other household members, if possible Use a separate bathroom, if possible Avoid contact with other members of the household and pets Don t share personal household items, like cups, towels, and utensils Wear a mask when around other people, if you are able to When to seek emergency medical attention Look for emergency warning signs* for COVID-19. If someone is showing any of these signs, seek emergency medical care immediately: Trouble breathing Persistent pain or pressure in the chest New confusion Inability to wake or stay awake Bluish lips or face *This list is not all possible symptoms. Please call your medical provider for any other symptoms that are severe or concerning to you. Call 911 or call ahead to your local emergency facility: Notify the spray gun operator that you are seeking care for someone who has or may have COVID-19. Ending Home Isolation - When you can be around others after you had or likely had COVID-19 When you can be around others after you had or likely had COVID-19 If You Test Positive for COVID-19 (Isolation) Everyone, regardless of vaccination status: Stay home for 5 days. Note: Day 0 is your first day of symptoms or the date of collection of a positive viral test if no symptoms. Day 1 is the first full day after symptoms developed or test specimen was collected. If you have no symptoms or your symptoms are resolving after 5 days, you can leave your house. Continue to wear a mask around others for 5 additional days. If you have a fever, continue to stay home until your fever resolves, even if it is longer than 5 days. If You Were Exposed to Someone with COVID-19 (Quarantine) If you: 1. Have been boosted OR 2. Completed the primary series of Pfizer or Moderna vaccine within the last 6 months OR 3. Completed the primary series of J&J vaccine within the last 2 months THEN: 1. Wear a mask around others for 10 days. 2. Test on day 5, if possible. If you develop symptoms get a test and stay home. If You Were Exposed to Someone with COVID-19 (Quarantine) If you: 1. Completed the primary series of Pfizer or Moderna vaccine over 6 months ago and are not boosted OR 2. Completed the primary series of J&J over 2 months ago and are not boosted OR 3. Are unvaccinated THEN: 1. Stay home for 5 days. After that continue to wear a mask around others for 5 additional days. 2. If you can't quarantine you must wear a mask for 10 days. 3. Test on day 5 if possible. If you develop symptoms get a test and stay home. I had COVID-19 or I tested positive for COVID-19 and I have a weakened immune system If you have a weakened immune system (immunocompromised) due to a health condition or medication, you might need to stay home and isolate longer than 10 days. Talk to your healthcare provider for more information. Your doctor may work with an infectious disease expert at your local health department to determinewhen you can be around others. How to Manage Common Symptoms Associated with COVID for Adults Fever- Fever is a temperature over 100.4 F and can occur when the body is fighting an infection. Tohelp treat a fever: Drink plenty of fluids and stay well hydrated. Eat small amounts of easy to digest food. Rest. Your body needs rest to recover, but getting up and moving around the house frequently is a good idea. You should try to continue doing your normal daily activities (bathing, toileting, grooming, cooking), though you will probably feel tired, and need to rest often. Avoid any heavy activity or exercise, as this will increase your body temperature. Dress in light clothing and stay covered in a light sheet. Keep the room temperature cool. Take a slightly warm (not cold or cool) bath, or apply damp washcloths to the forehead and wrists. Cough- Cough is a common symptom associated with COVID and can be bothersome. To help treat a cough: Stay well hydrated. Try warm water or tea with lemon and/or honey to help soothe the cough. Use a humidifier to add moisture to the air. Try a product with menthol, like a cough drop or a rub for your chest such as Vicks, which can helpreduce cough. Try cough drops. Avoid smoking and other strong odors or perfumes. Try breathing exercises to keep your lungs open and clear. Take a big deep breath through your noseand hold for 5 seconds before slowly releasing. Repeat frequently, while you are awake. Congestion- Runny nose or nasal congestion can occur with COVID. Treatment can help relieve symptoms: Try OTC nasal saline spray, or nasal saline rinse to relieve mucus congestion. Nasal strips can help keep nasal passages open, to increase airflow. Elevating your head with an extra pillow in bed can help reduce congestion. Using a humidifier can increase moisture in the air, and make breathing easier. Sore Throat- Another common symptom with COVID, can be managed at home by: Stay well hydrated. Gargle with salt water - mix teaspoon salt with 1 cup of warm water and gargle. This helps to loosen mucus in the back of the throat and may reduce discomfort. Try ice chips, popsicles or lozenges to soothe the throat. Nausea/Vomiting/Diarrhea- These are common symptoms, and staying hydrated is most important. If you are nauseous or vomiting, start with small sips of water every 10-15 minutes and increase astolerated. You can try sucking an ice cube too. If tolerating, you can try pedialyte or Gatorade, or flat sprite or mary-maría. Start slowly and increase as you are able to. Instead of meals, try smaller, more frequent snacks. Try eating bland foods like crackers, toast, rice, and applesauce. Avoid spicy, greasy or fried foods and dairy containing foods. Even if you aren't feeling hungry due to lack of smell or taste, it is important to try to take in some food when you are able. After drinking and eating, rest in an upright position for up to two hours as needed to help decrease nauseous feelings. Try closing your eyes, avoid moving and watching TV. Avoid strong odors that can make you feel more nauseated. When to seek emergency medical attention Look for emergency warning signs for COVID-19. If having any of these symptoms, seek emergency medical care immediately: Trouble breathing Persistent pain or pressure in the chest New confusion Inability to wake or stay awake Bluish lips or face *This list is not all possible symptoms. Please call your medical provider for any other symptoms that are severe or concerning to you. documented [facility] Miscellaneous Notes* Telephone Encounter - Romie López MD - 05/07/2021 9:41 AM EDT Noted. * Telephone Encounter - Caitlyn Garcia - 05/07/2021 9:10 AM EDT Patient called in and canceled his colonoscopy 15 min. Before arrival time the day of his scheduledprocedure. Stated his insurance is inactive which is not true. He did not prep either. Patient has 10 colonoscopy no shows and cancellations combined since 06/07/2017 to 05/07/2021 Caitlyn Garcia PSS documented in this [facility]04-[facility] History of Present illness Narrative* Hernandez Beal (Rt), Renita - 05/13/2020 10:30 AM EDT Radiology Service Progress Note PATIENT NAME: Emma Vasquez DATE OF SERVICE: May 13, 2020 TIME: 10:37 AM PATIENT IDENTITY VERIFICATION COMPLETED USING TWO (2) IDENTIFIERS: Name and Date of confirmedby patient verbally. FALL SCREENING: Has the patient had 2 falls in the last year or 1 fall with injury or currently using an Ambulatory Assistive Device (Walker, Cane, Wheelchair, Crutches, etc.)? No PATIENT GENDER DATA: Male PATIENT RELEVANT IMPLANT DATA REVIEWED: Not Applicable RADIOLOGY DEPARTMENT: General X-ray: Exam(s) Completed: Spine X-Ray(s): Lumbar AP / LAT / L5-S1 PERIPHERAL IV DATA: Not applicable SIGNED BY: RT Shane May 13, 2020 10:37 AM documented in this encounterT[facility] CenterDis[facility] summary Author Dr. Vergara [facility] March 05, 2022 5:19am Note Date/Time March 05, 2022 4 :03am [facility] Medical Records Department [address] [place] [id number] Emergency Department Summary 03/05/22 MR#: [id number] Acct: [id number] Name: EMMA VASQUEZ Rep #:[id number] : 1965 56 From: Jas Vergara MD PCP: RAJ Red Status:ADM EDSON Location: ICU ICU09-1 HPI History of Present Illness Chief Complaint: Chest Pain Informant: patient Onset/Context/Timing Onset: Hours (3) Activity at onset: gradual, onset, activity on onset and rest Timing: Continuous Quality: Positive for Tightness Location: Substernal Current Severity: Moderate Maximum Severity: Moderate Worsened By: Nothing; Not Worsened By Breathing Relieved By: Nothing Associated Symptoms: Positive for Dyspnea; Negative for Nausea, Vomiting, Diaphoresis, Fever, Lightheadedness or Palpitations Narrative Narrative: 56-year-old male, smoker but without medical problems until recently when his PCP diagnosed him with hypertension and hyperlipidemia, he started him on hypertension medication that he just got filled today and has not even started it yet, started having chest discomfort with tingling/numbness down his left upper extremity several hours prior to arrival has not gone away has been continuous since it started. Mild dyspnea. No near-syncope or syncope or palpitations. No diaphoresis. Never had any heart problems in the past, no history of a stress test. Family history of heart problems but not at ages 55 or younger that he knows of. He denies any weakness in his arm, just numbness/tingling. Denies any tingling elsewhere in his body. No headache or vision changes. No trouble ambulating or speaking. Prior Similar Symptoms: No CVD Risk Factors: Positive for Hypertension, Hypercholesterolemia and Smoking; Negative for Diabetes or Family History 1' </=55 PFSH PFSH Medical History HLD (hyperlipidemia) HTN (hypertension) Internal hemorrhoid, bleeding Tobacco use Home Medications amlodipine 5 mg tablet 5 mg PO DAILY 03/05/22 [History Last Taken Unknown] bupropion HCl 150 mg 24 hr tablet, extended release 150 mg PO DAILY 03/05/22 [History Last Taken Unknown] Allergy/AdvReac Type Severity Reaction Status Date / Time Penicillins Allergy Hives Verified 03/05/22 04:00 Family History (Updated 11/24/21 @ 13:04 by Guera Espinoza) Father Heart disease Diabetes Emphysema lung Mother Diabetes Uncle Colon cancer Surgical History (Updated 03/05/22 @ 04:[address] Maria Mathews MD) History of colonoscopy No history of previous surgery Social History (Updated 03/05/22 @ 04:[address] Maria Mathews MD) household members: significant other Smoking Status: Current every day smoker tobacco type: cigarettes Smoking packsper day: 1 Smoking cigarettes per day: 20.0 Years smoked: 31 Smoking pack- years:31.00 alcohol intake: current substance use type: does not use ROS ROS ED Constitutional Constitutional ED: Denies chills or fever(s) Eyes Eyes: Denies change in vision or diplopia ENT ENT ED: Denies rhinorrhea or sore throat Cardiovascular Cardiovascular: Reports chest pain; Denies palpitations Respiratory/Chest Respiratory/Chest: Reports dyspnea; Denies cough Gastrointestinal Gastrointestinal: Denies abdominal pain, diarrhea, nausea or vomiting Genitourinary Genitourinary ED: Denies dysuria or hematuria Musculoskeletal Musculoskeletal: Denies back pain or neck pain Integumentary Denies abscess or rash Neurologic Neurologic: Reports paresthesias; Denies headache(s) or weakness Psychiatric Psychiatric: Denies anxiety or suicidal thoughts EXAM Physical Exam Const Vital Signs: 03/05/22 04:01 03/05/22 03:59 03/05/22 04:04 Temperature 97.7 F L Temperature Source Temporal Pulse Rate 90 Respiratory Rate 17 Respiratory Effort Normal Blood Pressure 187/110 H Blood Pressure Mean 135 Pulse Ox 98 98 Oxygen Delivery Method Room Air Nasal Cannula 03/05/22 04:17 Temperature Temperature Source Pulse Rate 84 Respiratory Rate Respiratory Effort Blood Pressure 157/101 H Blood Pressure Mean Pulse Ox Oxygen Delivery Method Positive well nourished and well developed General Appearance ED: well developed and NAD HEENT Reports moist mucous membranes normocephalic and atraumatic Eyes PERRL and EOMs intact bilaterally Neck full ROM and supple Chest Wall inspection of chest normal and palpation of chest normal Resp normal respiratory effort and clear to auscultation bilaterally Cardio regular rate, regular rhythm and no murmurs Rate: Negative for tachycardic GI non-tender and non-distended Auscultation: normoactive bowel sounds Palpation: soft Back/Spine no CVA tenderness General Back: other FROM Extremity normal to inspection and no calf tenderness General Extremety ED: Negative for edema, pulses abnormal or tenderness General Extremity: Negative for edema or pulses abnormal Neuro oriented x3, CN's II-XII intact bilaterally, no sensory deficits noted and gait normal Sensorium / Orientation: awake and alert Motor Exam: strength 5/5 throughout Psych mental status grossly normal Skin no rashes or lesions noted and no wounds Heart Score History: Highly Suspicious ECG: Nonspecific Repolarization Age: >45 - <65 years Risk Factors: >/= 3 Risk Factors or History of CAD Troponin: </= Normal Limit Score: 6 MDM MDM MDM Narrative Medical decision making narrative: The patient's symptoms are concerning especially in context of a blood pressure 187/110, and hyperlipidemia that has not yet been treated (according to the patient), and being a longtime smoker. Additionally concerning is his EKG showing a left bundle branch block. There is no record of an old EKG on this patient. I applied the Aguero Modified Sgarbossa criteria as follows: Sgarbossa's Criteria for VA in Left Bundle Branch Block from [email or web address] on 03/05/2022 All calculations should be rechecked by clinician prior to use RESULT SUMMARY: 0 points In the original Sgarbossa criteria, a score of <3 typically is not considered diagnostic of acute VA, but also does not rule out VA. In concerning patients, repeating EKGs and cardiac enzymes may be helpful, along with cardiology consultation. NOTE: the Modified Sgarbossa Criteria (which changes the third criteria) does not use the points system, it is positive if any criteria are met. INPUTS: Concordant ST elevation > 1mm in leads with a positive QRS complex ?> 0 = No Concordant ST depression > 1 mm in V1-V3 ?> 0 = No Excessively discordant ST elevation (or depression) in leads with a negative QRS?> 0 = No In the anterior leads, this patient is deep S waves, and the ST elevation is 3- 4mm and the discordant ST elevation is approximately 14% of the depth of the S wave. Therefore, this patient does not qualify for a STEMI according to these criteria. Although his symptoms are concerning, he clinically appears well. After 4 baby aspirin and 1 nitroglycerin, his chest tightness is gone, he still has some mild tingling in his left upper extremity, but it is improved. Nitroglycerin paste 1 inch was placed on his chest. Initial troponin came back within normal limits at 7. The rest of his work-up was unremarkable. His 1 view chest x-ray on my interpretation is normal showinga narrow mediastinum, no pleural effusions, infiltrates, or other acute cardiopulmonary abnormality. Discussed with Dr. Mathews hospitalist will admit toobservation monitored bed for further evaluation she agrees that the patient is a high heart score and is high risk of having unstable angina here. While patient was awaiting a bed in the ED, staff noticed that his QRS complex seem to vary on the monitor. My interpretation of 1 particular rhythm strip wasthat the patient appeared to go in and out of a left bundle; his rhythm did not change. We were already repeating his EKG at that time just because his chest discomfort had resolved, and the EKG shows that he is still in a left bundle andit was basically unchanged compared with his initial 1. Lab Data Attestation: I reviewed the patient's lab results. Labs: Laboratory Results - last 24 hr 03/05/22 03/05/22 03/05/22 04:05 04:05 04:05 WBC 9.8 RBC 5.92 Hgb 18.0 H* Hct 53.6 MCV 90.5 MCH 30.4 MCHC 33.6 RDW Std Deviation 45.8 H RDW Coeff of Chidi 13.5 Plt Count 316 MPV 9.3 Immature Gran % (Auto) 0.600 Neut % (Auto) 47.3 Lymph % (Auto) 40.0 [place]illion % (Auto) 9.0 Eos % (Auto) 2.5 Baso % (Auto) 0.6 Absolute Neuts (auto) 4.6 Absolute Lymphs (auto) 3.90 Nucleated RBC % 0 APTT 32.1 Sodium 139 Potassium 4.0 Chloride 108 H Carbon Dioxide 25.0 Anion Gap 6 BUN 16 Creatinine 0.89 Estim Creat Clear Calc 98.71 Est GFR (MDRD) Af Amer 113 Est GFR (MDRD) Non-Af 94 BUN/Creatinine Ratio 17.9 Glucose 133 H Calcium 9.5 Magnesium Troponin I High Sens 7 03/05/22 04:05 WBC RBC Hgb Hct MCV MCH MCHC RDW Std Deviation RDW Coeff of Chidi Plt Count MPV Immature Gran % (Auto) Neut % (Auto) Lymph % (Auto) Vermillion % (Auto) Eos % (Auto) Baso % (Auto) Absolute Neuts (auto) Absolute Lymphs (auto) Nucleated RBC % APTT Sodium Potassium Chloride Carbon Dioxide Anion Gap BUN Creatinine Estim Creat Clear Calc Est GFR (MDRD) Af Amer Est GFR (MDRD) Non-Af BUN/Creatinine Ratio Glucose Calcium Magnesium 2.5 Troponin I High Sens Radiography Diagnostic Testing: Clinical Impression(s) from Imaging Studies Chest X-Ray 03/05/22 03:59 IMPRESSION: No radiographic evidence of acute cardiopulmonary disease. Electronically Signed: Prabhakar Robertson MD at 4:47 EST , Rhythm Strip Rhythm Strip: Sinus Rhythm Rate: 85 Ectopy: None EKG Initial EKG: Attestation: I personally reviewed and interpreted this EKG as follows: Interpretation: Sinus Rhythm, No Acute Injury Pattern and LBBB Prior: No Prior Follow-up EKG: Attestation: I personally reviewed and interpreted this EKG as follows: Interpretation: Sinus Rhythm, No Acute Injury Pattern and LBBB Comments: (when CP-free) Prior: Unchanged Discharge Plan Dx/Rx/DC Orders Clinical Impression: ACS (acute coronary syndrome) Disposition Disposition: Acute Care Hospital [facility] What to do if you have Problems For any increased pain, shortness of breath, bleeding, nausea or vomiting, chestpain, or any unexpected problems, contact your Primary Care Provider. Call [facility] ([phone]) or report to the closest Emergency Room. Call 911 if necessary. 03/05/22518 <Electronically signed by Jas Vergara MD> Cosigner Signature (if applicable): CC: RAJ Gibson ~ Signed [facility] Work Phone: Evaluation noteNo assessment information available [facility] Work Phone: Evaluation note* Diagnosis Suspected COVID-19 virus infection- [facility] CANCELLED- [facility] Diagnosis Primary hypertension- Primary Unspecified essential hypertension Memory difficulties Memory loss Tobacco use Tobacco use disorder Internal hemorrhoids Internal hemorrhoids without mention of complication Lymphadenopathy, inguinal Enlargement of lymph nodes Intra-abdominal and pelvic swelling, mass and lump, unspecified site Left lower quadrant abdominal pain Vitamin D deficiency Unspecified vitamin D deficiency Screening for lipid disorders Encounter for therapeutic drug monitoring [facility] Diagnosis Vitamin D deficiency- Primary Unspecified vitamin D deficiency [facility] Diagnosis Onset Date Resolution Status ACS (acute coronary syndrome) acute Chest pain acute [facility] Work Phone: Evaluation note* Diagnosis Lymphadenopathy, inguinal- Primary Enlargement of lymph nodes Intra-abdominal and pelvic swelling, mass and lump, unspecified site Left lower quadrant abdominal pain [facility]* Diagnosis Rash- Primary Rash and other nonspecific skin eruption [facility]* Diagnosis Mild cognitive impairment- Primary Mild cognitive impairment, so stated Hearing difficulty of both ears Snoring Other dyspnea and respiratory abnormality Memory loss Dementia without behavioral disturbance (HCC) Dementia, unspecified, without behavioral disturbance [facility] Diagnosis Moderate episode of recurrent major depressive disorder (HCC)- Primary Memory difficulties Memory loss Tobacco use Tobacco use disorder Sleep apnea, unspecified type Ventral hernia without obstruction or gangrene Ventral hernia, unspecified, without mention of obstruction or gangrene Multiple renal cysts Primary hypertension Unspecified essential hypertension Herpes zoster without complication Herpes zoster without mention of complication Epidermoid cyst of skin of scalp [facility]* Diagnosis ETD (Eustachian tube dysfunction), left- Primary [facility]* Diagnosis Primary hypertension- Primary Unspecified essential hypertension Renal cyst, acquired, left Acquired cyst of kidney Ventral hernia without obstruction or gangrene Ventral hernia, unspecified, without mention of obstruction or gangrene [facility]* Diagnosis History of colonic polyps Personal history of colonic polyps Ventral hernia without obstruction or gangrene Ventral hernia, unspecified, without mention of obstruction or gangrene Gastroesophageal reflux disease with esophagitis without hemorrhage [facility]* Diagnosis Sleep apnea, unspecified type- Primary [facility]* Diagnosis Urinary tract infection with hematuria, site unspecified- Primary Glucosuria Glycosuria Hyperglycemia Other abnormal glucose Hypercholesterolemia Pure hypercholesterolemia [facility]* Diagnosis Acute otitis media, right- Primary Unspecified otitis media [facility]* Diagnosis Other non-recurrent acute nonsuppurative otitis media, unspecified laterality- Primary [facility]* Diagnosis Primary hypertension Unspecified essential hypertension Hypercholesterolemia Pure hypercholesterolemia [facility]* Diagnosis Pelvic pain- Primary [facility]* Diagnosis Colon cancer screening Special screening for malignant neoplasms, colon [facility]* Diagnosis Hypercholesterolemia- Primary Pure hypercholesterolemia Vitamin D deficiency Unspecified vitamin D deficiency Encounter for therapeutic drug monitoring [facility] Diagnosis MICA (obstructive sleep apnea)- Primary Obstructive sleep apnea (adult) (pediatric) Primary hypertension Unspecified essential hypertension Hypercholesterolemia Pure hypercholesterolemia Tobacco use Tobacco use disorder Vitamin D deficiency Unspecified vitamin D deficiency Lower abdominal pain Abdominal pain, other specified site Gallbladder polyp Cholesterolosis of gallbladder Hepatic steatosis Other chronic nonalcoholic liver disease [facility] Diagnosis MICA (obstructive sleep apnea)- Primary Obstructive sleep apnea (adult) (pediatric) [facility]* Diagnosis Painful bladder spasm- Primary Other symptoms involving urinary system Spastic pelvic floor syndrome Other symptoms involving digestive system [facility] Diagnosis Colon cancer screening- Primary Special screening for malignant neoplasms, colon [facility]* Diagnosis Urinary frequency- Primary Rectal pain Anal or rectal pain [facility]* Diagnosis Memory loss- Primary Hearing difficulty of both ears Snoring Other dyspnea and respiratory abnormality Mild cognitive impairment Mild cognitive impairment, so stated [facility] Diagnosis Puncture wound- Primary Open wound(s) (multiple) of unspecified site(s), without mention of complication [facility] MCIA (obstructive sleep apnea)- Primary Obstructive sleep apnea (adult) (pediatric) Chronic fatigue Other malaise and fatigue Primary hypertension Unspecified essential hypertension Tobacco use Tobacco use disorder Memory difficulties Memory loss Mild cognitive impairment Mild cognitive impairment, so stated Hearing impaired person, bilateral [facility]* Diagnosis Acute bilateral low back pain without sciatica [facility]* Diagnosis MICA (obstructive sleep apnea)- Primary Obstructive sleep apnea (adult) (pediatric) Chronic fatigue Other malaise and fatigue Primary hypertension Unspecified essential hypertension Tobacco use Tobacco use disorder Mild cognitive impairment Mild cognitive impairment, so stated Bilateral foot pain Pain in limb Vitamin D deficiency Unspecified vitamin D deficiency Encounter for immunization Need for other specified prophylactic vaccination against single bacterial disease Encounter for screening examination for other mental health and behavioral disorders Hearing impaired person, bilateral [facility]* Diagnosis Bilateral foot pain Pain in limb [facility]* Diagnosis MICA (obstructive sleep apnea)- Primary Obstructive sleep apnea (adult) (pediatric) Memory loss Hearing difficulty of both ears Mild cognitive impairment Mild cognitive impairment, so stated Anxiety Anxiety state, unspecified [facility]* Diagnosis Pain with urination- Primary Renal colic Glucose found in urine on examination Glycosuria [facility]* Diagnosis Type 2 diabetes mellitus with diabetic polyneuropathy, without long-term current use of insulin (HCC)- Primary Glucosuria Glycosuria MICA (obstructive sleep apnea) Obstructive sleep apnea (adult) (pediatric) Primary hypertension Unspecified essential hypertension Bilateral foot pain Pain in limb Hearing impaired person, bilateral Anxiety and depression Dysthymic disorder Memory difficulties Memory loss [facility]* Diagnosis Lower abdominal pain- Primary Abdominal pain, other specified site [facility]* Diagnosis Acute pancreatitis, unspecified complication status, unspecified pancreatitis type- Primary Urinary tract infection without hematuria, site unspecified Encounter for immunization Need for other specified prophylactic vaccination against single bacterial disease Type 2 diabetes mellitus with diabetic polyneuropathy, without long-term current use of insulin ([facility]) Screening for diabetic retinopathy Screening for other eye conditions documented in this encounter [facility] note* Diagnosis Type 2 diabetes mellitus with diabetic polyneuropathy, without long-term current use of insulin ([facility]) Anxiety and depression Dysthymic disorder [facility]* Diagnosis Type 2 diabetes mellitus with diabetic polyneuropathy, without long-term current use of insulin ([facility]) [facility]* Diagnosis Onset Date Resolution Status Admit Date UTI symptoms acute August 21 7:50am [facility] Work Phone: History and physical note Author Dr. Mathews [facility] March 05, 2022 5:08am Note Date/Time March 05, 2022 4 :50am [facility] Medical Records Department [address] [place] [id number] H&P Exam - Hospitalist 03/05/22 0440 MR#: [id number] Acct: [id number] Name: EMMA VASQUEZ Dada Rep #:[id number] : 1965 56 From: Maria Mathews MD PCP: RAJ Red Status:REG ER Location: ED HPI - General General Date of Service: 03/05/22 Chief Complaint: Chest pain HPI Narrative The patient is a 56 y/o M w/ PMHx: HTN, HLD, Tobacco use, recently placed on newBP medications and from discussions may have been off medications for some time,Issues with bleeding hemorrhoids with planned upcoming repeat endoscopies who presents to the [facility] ED on 03/05/22 with history of falling getting up at his normal hour of midnight while into his second cup of coffee onset of midsternal and left-sided chest discomfort described as a tightness rated 4 out of 10 in severity with a mild dry cough, dizziness as well as lightheadedness in additionto radiation of the discomfort into the left upper extremity with associated paresthesias noted the discomfort of the left upper extremity being mildly worsethan in the chest rating it 6 out of 10 in severity not resolving prompting eventual ED evaluation. In the ED patient initiated on nitroglycerin series andfollowing even just 1 sublingual nitroglycerin notes resolution of the chest discomfort and near resolution of the left upper extremity discomfort. Work-up in the ED included T97.7, heart rate 90, BP initially 187/110 with most recent repeat 157/101, respiratory rate 17, 98% on room air, CBC w/ WBC 9.8, Hgb 18, Plts 316 without shift, BMP with glucose 133 otherwise not marked appearing, troponin 7, chest x-ray prelim on hospitalist reviewed with no acute cardiopulmonary findings with final read pending, EKG with sinus rhythm with left bundle branch block of unclear chronicity with no acute evidence of ischemia. In the ED patient ministered nitroglycerin eventually placed on nitroglycerin ointment given symptomatic improvement as well as administration of aspirin full-strength therapy x1. [facility] Medical History HLD (hyperlipidemia) HTN (hypertension) Internal hemorrhoid, bleeding Tobacco use Home Medications amlodipine 5 mg tablet 5 mg PO DAILY 03/05/22 [History Last Taken Unknown] bupropion HCl 150 mg 24 hr tablet, extended release 150 mg PO DAILY 03/05/22 [History Last Taken Unknown] Allergy/AdvReac Type Severity Reaction Status Date / Time Penicillins Allergy Hives Verified 03/05/22 04:00 Family History (Updated 11/24/21 @ 13:04 by Guera Espinoza) Father Heart disease Diabetes Emphysema lung Mother Diabetes Uncle Colon cancer Surgical History (Updated 03/05/22 @ 04:[address] Maria Mathews MD) History of colonoscopy No history of previous surgery Social History (Updated 01/26/23 @ 04:[address] Maria Mathews MD) household members: significant other Smoking Status: Current every day smoker tobacco type: cigarettes Smoking packsper day: 1 Smoking cigarettes per day: 20.0 Years smoked: 31 Smoking pack- years:31.00 alcohol intake: current substance use type: does not use ROS ROS Narrative Admission Review of Systems: CONSTITUTIONAL: No weight loss, fever, chills, + weakness or fatigue. HEENT: Eyes: No visual loss, blurred vision, double vision or yellow sclerae. Ears, Nose, Throat: No hearing loss, sneezing, congestion, runny nose or sore throat. SKIN: No rash or itching, lesions, wounds. CARDIOVASCULAR: + Dizziness, lightheadedness chest pain, chest pressure or chestdiscomfort, No palpitations, edema, orthopnea, syncopal events. RESPIRATORY: + Transient cough. No shortness of breath, sputum, wheezing, hemoptysis. GASTROINTESTINAL: No anorexia, nausea, vomiting or diarrhea, abdominal pain, melena, BRBPR. GENITOURINARY: No dysuria, frequency, urgency or retention. NEUROLOGICAL: + Dizziness, lightheadedness, No headache, paralysis, ataxia, numbness or tingling in the extremities, focal weakness, change in bowel or bladder control, seizure. MUSCULOSKELETAL: + muscle, back pain, joint pain or stiffness. HEMATOLOGIC: + bleeding or bruising. LYMPHATICS: No enlarged nodes. No history of splenectomy. PSYCHIATRIC: No history of depression or anxiety. ENDOCRINOLOGIC: No reports of sweating, cold or heat intolerance. No polyuria orpolydipsia. ALLERGIES: No history of asthma, hives, eczema or rhinitis. Vital Signs Vital Signs Vital Signs: 03/05/22 04:01 03/05/22 03:59 03/05/22 04:04 Temperature 97.7 F L Temperature Source Temporal Pulse Rate 90 Respiratory Rate 17 Respiratory Effort Normal Blood Pressure 187/110 H Blood Pressure Mean 135 Pulse Ox 98 98 Oxygen Delivery Method Room Air Nasal Cannula 03/05/22 04:17 Temperature Temperature Source Pulse Rate 84 Respiratory Rate Respiratory Effort Blood Pressure 157/101 H Blood Pressure Mean Pulse Ox Oxygen Delivery Method Weight Weight: 166 lb 1.6 oz Body Mass Index (BMI) 23.1 Physical Exam Narrative Physical Examination: General: Awake, alert, oriented x 3 and cooperative, seated upright in the ED bed, chest discomfort resolved following nitroglycerin administration with the ED initiating nitroglycerin ointment patch Skin: Normal color, normal turgor, no icterus, no cyanosis. HEENT: AT/NC, EOMI, PERRLA, MMM, no carotid bruits or JVD noted. Lungs: CTA bilaterally, moderate effort, mild decrease BL bases, no rales, ronchi or wheezing. Heart: Currently regular rate and rhythm; no gallop, rub audible. Abdomen: Soft, NTTP, ND, distant normal BS, no HSM. Extremities: No cyanosis, clubbing, or edema. Neurological: Patient awake, alert, oriented as noted, cognitive function intact; pupils equally reactive to light and accommodation, cranial nerves II-XII grossly normal, moving all 4 extremities, no focal deficits, strength mildlyglobal decrease, improving given chest discomfort resolution Psychiatric: Affect appears fatigued, no acute evidence of depressive or anxietyfeelings. Results Lab / Micro Data Result Diagrams: 03/05/22 04:05 03/05/22 04:05 Labs: Laboratory Results - last 24 hr 03/05/22 04:05: APTT 32.1 Assessment & Plan Assessment/Plan (1) Chest pain: PLAN: Plan The patient is a 56 y/o M w/ PMHx: HTN, HLD, Tobacco use, recently placed on newBP medications and from discussions may have been off medications for some time,Issues with bleeding hemorrhoids with planned upcoming repeat endoscopies who presents to the [facility] ED on 03/05/22 with history of falling getting up at his normal hour of midnight while into his second cup of coffee onset of midsternal and left-sided chest discomfort described as a tightness rated 4 out of 10 in severity with a mild dry cough, dizziness as well as lightheadedness in additionto radiation of the discomfort into the left upper extremity. #1. Chest Pain: EKG in ED sinus rhythm with left bundle branch block of unclearchronicity with no acute evidence of ischemia, CXR w/ no obvious acute cardiopulmonary findings on prelim read however final read pending, initial trop7. Will admit to PCU, place on a monitored bed to assure no acute myocardial infarction with serial cardiac enzymes and EKGs. If repeat serial cardiac enzymes and EKGs remain unremarkable will pursue a.m. cardiac stress testing however if patient with significant recurrent discomfort or changes low threshold to involve cardiology given admission story line. Magnesium level requested. FLP in AM. ASA, NG, morphine. #2. Hypertension, uncontrolled: ED presentation with elevated BP, improved following repeat assessment, currently placed on NG paste which will be continued, continue recently transition amlodipine regimen, likely will need further regimen changes, as needed IV hydralazine also in interim. #3. Hyperlipidemia: Patient reportedly recently started on statin therapy, unclear dosing, will start atorvastatin in the interim, FLP in AM. #4. Tobacco Abuse: Encouraged cessation, inpatient consultation per RT, NR if desired, continue patient recently initiated bupropion regimen. #5. History of internal hemorrhoids: Awaiting CBC as noted, patient notes this has been an ongoing issue and is awaiting set up for outpatient endoscopy. #6. DVT prophylaxis: SCDs, Lovenox. Admission Evaluation Time spent evaluating chart, patient history, patient evaluation, care planning and discussion with specialists: 55 minutes. Charges/Coding Visit Charges Inpatient E&M: 18356 Init Hosp L2 03/05/22 0504 <Electronically signed by Maria Mathews MD> Cosigner Signature (if applicable): CC: LAW EXAMINERBrando Gibson; Dr. Maria Mathews MD~ Signed [facility] Work Phone: Hospital course Narrative No data available for this section [facility] Discharge instructions No data available for this section [facility] Discharge instructions Additional Instructions Thank you for trusting us with your care today! Please take Tylenol (2 pills, 650 mg), ibuprofen (2 pills, 400 mg) every 6 hours as needed for pain and fever control. Please go to local pharmacy or drugstore and obtain Preparation H or lidocaine cream and apply as directed. Please return to the emergency department if your symptoms change or worsen. Please follow with your primary care physician for further outpatient evaluation and management.[facility] [facility] Work Phone: Progress note No data available for this section [facility] Reason for referral (narrative)* Diagnostic Procedure Only (Routine) - Authorized Specialty Diagnoses / Procedures Referred By Contac t Referred To Contact US IMAGING Diagnoses Lymphadenopathy, inguinal Intra-abdominal and pelvic swelling, mass and lump, unspecified site Left lower quadrant abdominal pain Procedures US HIP LT US COMPL JOINT R-T W/IMAGE DOCUMENTATION Brian Gibson APRN.CNP [address] [place], [place] [id number] Us Imaging Referral ID Status Reason Start Date Expiration Date Visits Requested Visits Authorized [id number] Authorized Auto-Generat ed Referral 03/09/2022 04/08/2023 1 1 * Diagnostic Procedure Only (Routine) - Authorized Specialty Diagnoses / Procedures Referred By Contac t Referred To Contact US IMAGING Diagnoses Lymphadenopathy, inguinal Intra-abdominal and pelvic swelling, mass and lump, unspecified site Left lower quadrant abdominal pain Procedures US PELVIS LTD US PELVIC NONOBSTETRIC IMAGE DCMTN LIMITED/F/U Brian Gibson APRN.CNP [address] [place] [address] Us Imaging Referral ID Status Reason Start Date Expiration Date Visits Requested Visits Authorized [id number] Authorized Auto-Generat ed Referral 03/09/2022 04/08/2023 [facility] Diagnostic Procedure Only (Routine) - Authorized Specialty Diagnoses / Procedures [facility] Diagnoses Sleep apnea, unspecified type Procedures HOME SLEEP APNEA TEST (HSAT) SLEEP STD AIRFLOW HRT RATE&O2 SAT EFFORT UNATT Brian Gibson APRN.CNP [address] [place] [address] [facility] [place] [address] [place] [address] Referral ID Status Reason Start Date Expiration Date Visits Requested Visits Authorized [id number] Authorized Auto-Generat ed Referral 04/01/2022 04/01/2023 1 1 * Diagnostic Procedure Only (Routine) - Authorized Specialty Diagnoses / Procedures [facility] To [facility] US IMAGING Diagnoses Multiple renal cysts Procedures US KIDNEY/BLADDER US RETROPERITONEAL REAL TIME W/IMAGE COMPLETE Brian Gibson APRN.CNP [address] [place] [address] Us Imaging Referral ID Status Reason Start Date Expiration Date Visits Requested Visits Authorized [id number] Authorized Auto-Generat ed Referral 04/01/2022 05/01/2023 1 1 [facility] for referral (narrative)* Outpatient Procedure (Routine) - Authorized Specialty Diagnoses / Procedures [facility] To Contact [facility] [place] Diagnoses History of colonic polyps Gastroesophageal reflux disease with esophagitis without hemorrhage Procedures EGD DIAGNOSTIC ESOPHAGOGASTRODUODENOSC OPY TRANSORAL DIAGNOSTIC Aleta Shepard MD [address] [place] [address] [facility] [address] [address] Referral ID Status Reason Start Date Expiration Date Visits Requested Visits Authorized [id number] Authorized Auto-Generat ed Referral 04/28/2022 04/29/2023 1 1 * Outpatient Procedure (Routine) - Authorized Specialty Diagnoses / Procedures Referred By [facility] Referred To Contact [facility] [place] Diagnoses History of colonic polyps Gastroesophageal reflux disease with esophagitis without hemorrhage Procedures COLONOSCOPY SCREENING COLONOSCOPY FLX DX W/COLLJ SPEC WHEN PFRMD Aleta Shepard MD [address] [facility] [place] [address] [address] Referral ID Status Reason Start Date Expiration Date Visits Requested Visits Authorized [id number] Authorized Auto-Generat ed Referral 04/28/2022 04/29/2023 1 1 [facility] Diagnostic Procedure Only (Routine) - Authorized Specialty Diagnoses / Procedures Referred By Contac t Referred To Contact XR IMAGING Diagnoses Bilateral foot pain Procedures XR FOOT GENERAL 3V AP/LAT/OBL BILATERAL RADEX FOOT COMPLETE MINIMUM 3 VIEWS Brian Gibson APRN.CNP [address] [place] [address] [place] [address] Referral ID Status Reason Start Date Expiration Date Visits Requested Visits Authorized [id number] Authorized Auto-Generat ed Referral 12/21/2024 1 1 [facility]No reason for referral information availableWL[facility] Work Phone: Reason for visit Narrative* Diagnostic Procedure Only (Routine) - Closed Specialty Diagnoses / Procedures Referred By Contac t Referred To Contact XR IMAGING Diagnoses Bilateral foot pain Procedures XR FOOT GENERAL 3V AP/LAT/OBL BILATERAL RADEX FOOT COMPLETE MINIMUM 3 VIEWS Brian Gibson APRN.CRUISE DIRECTOR [address] [place] [address] [place] [address] Referral ID Status Reason Start Date Expiration Date V isits Requested Visits Authorized [id number] Closed Auto-Generate d Referral 11/22/2023 12/21/2024 1 1 [facility] Advance Directives No Advanced Directives Records FoundDocuments on File Type Date Recorded Patient Crane Helper Expl anation Advance Directive(s) 12/16/2020 2:09 PM Advance Directive(s) 10/31/2020 9:20 AM Advance Directive(s) 10/17/2020 9:45 AM Advance Directive(s) 01/25/2020 4:02 PM Advance Directive(s) 10/17/2019 10:24 AM Advance Directive(s) 08/18/2019 10:23 AM Advance Directive(s) 06/07/2017 8:13 AM Advance Directive Response Recorded Date/ Time Living Will No July 05, 2021 1 :18am Power of Instrument Installer No July 05, 2021 1:18am Advance Directive Response Recorded Date/ Time Living Will No March 05 4:04am Power of Instrument Installer No March 05, 2022 4:04am Advance Directive Response Recorded Date/ Time Living Will No March 05 5:41am Power of Instrument Installer No March 05, 2022 5:41am Advance Directive Response Recorded Date/ Time Do you have a Healthcare Power of Instrument Installer? No June 21, 2024 10:42pm Chief Complaint and Reason for Visit Chief Complaint nausea Chief Complaint Amb Documentation chest pain left arm numbness CHEST PAIN Reason for Visit ACS (acute coronary syndrome) Chest pain Chief Complaint Amb Documentation chest pain left arm numbness CHEST PAIN CHEST PAIN Reason for Visit ACS (acute coronary syndrome) Chest pain Chief Complaint Admit Date gi bleed June 21, 2024 9:59p m Chief Complaint Admit Date gi bleed June 21, 2024 9:59p m CONCERN FOR UTI August 21, 2024 7:50 am Reason for Visit Admit Date UTI symptoms August 21, 2024 7:50 am Chief Complaint Admit Date gi bleed June 21, 2024 9:59p m CONCERN FOR UTI August 21, 2024 7:50 am COUGH, CONGESTION October 19, 2024 5:04pm Chief Complaint Admit Date CONCERN FOR UTI August 21, 2024 7:50 am COUGH, CONGESTION October 19, 2024 5:04pm concern for uti October 24, 2024 1:09pm Reason for Visit Admit Date UTI symptoms August 21, 2024 7:50 am Acute upper respiratory infection Septem 2024 5:04pm Urinary frequency October 24, 2024 1:09pm Constipation October 24, 2024 1:09pm Family History No Family History Records Found Relationship Condition Age at Onset Recorded Date/T beata father Cardiac disease Unknown Diabetes mellitus Unknown mother Diabetes mellitus Unknown Relationship Condition Age at Onset Recorded Date/T beata father Cardiac disease Unknown Diabetes mellitus Unknown Pulmonary emphysema Unknown mother Diabetes mellitus Unknown uncle Malignant neoplasm of colon Unknown Health Concerns Infection Onset Date Last Indicated Resolved Time COVID-19 Rule-Out 12/20/2021 12/20/2021 Reason for Referral Specialty Diagnoses / Procedures Referred By Taz t Referred To Contact CT IMAGING Diagnoses Lymphadenopathy, inguinal Intra-abdominal and pelvic swelling, mass and lump, unspecified site Left lower quadrant abdominal pain Procedures CT ABD/PEL W IVCON CT ABD & PELVIS W/CONTRAST Brian Gibson, TELEHEALTH CASE MANAGER.CRUISE DIRECTOR [address] [place] [address] Ct Imaging Referral ID Status Reason Start Date Expiration Date Visits Requested Visits Authorized [id number] Additional Clinical Info Needed Auto-Generat ed Referral 03/03/2022 04/02/2023 1 1 Specialty Diagnoses / Procedures Referred By Contac t Referred To Contact Diagnoses Internal hemorrhoids Brian Gibson APRN.CRUISE DIRECTOR [address] [place] [address] Referral ID Status Reason Start Date Expiration Date Visits Re quested Visits Authorized [id number] Closed 1 1 Specialty Diagnoses / Procedures Referred By Contac t Referred To Contact MR IMAGING Diagnoses Dementia without behavioral disturbance (HCC) Procedures MRI BRAIN WO IVCON MRI BRAIN BRAIN STEM W/O CONTRAST MATERIAL Claudine Calderon PA-C [address] [place] [address] [facility] Referral ID Status Reason Start Date Expiration Date Visits Requested Visits Authorized [id number] Pending Review Auto-Generat ed Referral 03/31/2022 04/30/2023 1 1 Specialty Diagnoses / Procedures Referred By Contac t Referred To Contact Diagnoses Hearing difficulty of both ears Procedures HEARING TEST/AUDIOGRAM COMPRE AUDIOMETRY THRESHOLD EVAL SP RECOGNIJ Claudine Calderon PA-C [address] [place] [address] [facility] [address] [place] [address] Referral ID Status Reason Start Date Expiration Date Visits Requested Visits Authorized [id number] Authorized Auto-Generat ed Referral 03/31/2022 06/29/2022 1 1 Specialty Diagnoses / Procedures Referred By Contac t Referred To Contact Ent - Otolaryngology Diagnoses Hearing difficulty of both ears Procedures CONSULT TO ENT OFFICE/OUTPATIENT COUNT INCLUDES THE [facility] MDM 60-74 MINUTES Claudine Calderon PA-C [address] [place] [address] Referral ID Status Reason Start Date Expiration Date Visits Requested Visits Authorized [id number] Authorized PCP Requested Referral 03/31/2022 03/31/2023 1 1 Specialty Diagnoses / Procedures Referred By Contac t Referred To Contact Diagnoses Snoring Procedures CONSULT TO SLEEP MEDICINE - ADULT OFFICE/OUTPATIENT [facility] 60-74 MINUTES Claudine Calderon PA-C [address] [place] [address] Referral ID Status Reason Start Date Expiration Date Visits Requested Visits Authorized [id number] Authorized PCP Requested Referral 03/31/2022 03/31/2023 1 1 Specialty Diagnoses / Procedures Referred By Contac t Referred To Contact General Surgery Diagnoses Ventral hernia without obstruction or gangrene Procedures CONSULT TO GENERAL SURGERY OFFICE/OUTPATIENT [facility] 60-74 MINUTES Brian Gibson APRN.CRUISE DIRECTOR [address] [phone] Referral ID Status Reason Start Date Expiration Date Visits Requested Visits Authorized [id number] Authorized PCP Requested Referral 04/20/2022 04/20/2023 1 1 Specialty Diagnoses / Procedures Referred By Contac t Referred To Contact Nephrology Diagnoses Primary hypertension Renal cyst, acquired, left Peripelvic (lymphatic) cyst Procedures CONSULT TO NEPHROLOGY OFFICE/OUTPATIENT [facility] 60-74 MINUTES Brian Gibson APRN.CRUISE DIRECTOR [address] [phone] Referral ID Status Reason Start Date Expiration Date Visits Requested Visits Authorized [id number] Authorized PCP Requested Referral 04/20/2022 04/20/2023 1 1 Specialty Diagnoses / Procedures Referred By Contac t Referred To Contact Urology Diagnoses Painful bladder spasm Spastic pelvic floor syndrome Procedures CONSULT TO UROLOGY OFFICE/OUTPATIENT [facility] 60 MINUTES Jolene Beavers MD [address] [place] [address] Referral ID Status Reason Start Date Expiration Date Visits Requested Visits Authorized [id number] Authorized PCP Requested Referral 07/12/2023 07/11/2024 1 1 Specialty Diagnoses / Procedures Referred By Contac t Referred To Contact Diagnoses Memory loss Procedures NEUROPSYCHOLOGICAL TESTING CONSULT NEUROBEHAVIORAL STATUS XM PHYS/QHP 1ST HOUR NEUROPSYCHOLOGICAL TST EVAL PHYS/QHP 1ST HOUR NEUROPSYCHOLOGICAL TST EVAL PHYS/QHP EA ADDL HR PSYCL/NRPSYCL TST TECH 2+ TST 1ST 30 MIN PSYCL/NRPSYCL TST TECH 2+ TST EA ADDL 30 MIN Claudine Calderon PA-C [address] [place] [address] Referral ID Status Reason Start Date Expiration Date Visits Requested Visits Authorized [id number] Ref Not Required PCP Requested Referral 08/24/2023 08/23/2024 1 3 Specialty Diagnoses / Procedures Referred By Contac t Referred To Contact Psychology Diagnoses Memory loss Anxiety Procedures CONSULT TO PSYCHOLOGY OFFICE/OUTPATIENT [facility] 60 MINUTES Claudine Calderon PA-C [address] [place] [address] Referral ID Status Reason Start Date Expiration Date Visits Requested Visits Authorized [id number] Pending Review PCP Requested Referral 4 12/06/2024 1 1 Specialty Diagnoses / Procedures Referred By Contac t Referred To Contact Diagnoses MICA (obstructive sleep apnea) Procedures CONSULT TO SLEEP MEDICINE - ADULT OFFICE/OUTPATIENT [facility] 60 MINUTES Claudine Calderon PA-C [address] [place] [address] Referral ID Status Reason Start Date Expiration Date Visits Requested Visits Authorized [id number] Authorized PCP Requested Referral 4 12/06/2024 1 1 Specialty Diagnoses / Procedures Referred By Contac t Referred To Contact Podiatry Diagnoses Type 2 diabetes mellitus with diabetic polyneuropathy, without long-term current use of insulin (HCC) Procedures CONSULT TO PODIATRY OFFICE/OUTPATIENT [facility] 60 MINUTES Brian Gibson, TELEHEALTH CASE MANAGER.CRUISE DIRECTOR [address] [place] [address] Referral ID Status Reason Start Date Expiration Date Visits Requested Visits Authorized [id number] Authorized PCP Requested Referral 4 12/23/2024 1 1 Specialty Diagnoses / Procedures Referred By Contac t Referred To Contact Ophthalmology Diagnoses Type 2 diabetes mellitus with diabetic polyneuropathy, without long-term current use of insulin (HCC) Screening for diabetic retinopathy Procedures CONSULT TO OPHTHALMOLOGY OFFICE/OUTPATIENT [facility] 60 MINUTES Db Vences, TELEHEALTH CASE MANAGER.CHILDREN'S LUNCHROOM SUPERVISOR [address] [place] [address] Referral ID Status Reason Start Date Expiration Date Visits Requested Visits Authorized [id number] Authorized PCP Requested Referral 01/13/2024 01/12/2025 1 1 Summary Purpose Additional Source Comments Source Comments (unrecognize d section and content) In the event this informatio n is protected by the Federal Confidentiality of Alcohol and Drug Abuse Patient Records regulations: The Federal rules restrict any use of the information to criminally investigate or prosecute any alcohol or drug abuse patient.[facility] the event this information is protected by the Federal Confidentiality of Alcohol and Drug Abuse Patient Records regulations: The Federal rules restrict any use of the information to criminally investigate or prosecute any alcohol or drug abuse patient.[facility] CenterIn the event this information is protected by the Federal Confidentiality of Alcohol and Drug Abuse Patient Records regulations: The Federal rules restrict any use of the information to criminally investigate or prosecute any alcohol or drug abuse patient.[facility] Center[facility] the event this information is protected by the Federal Confidentiality of Alcohol and Drug Abuse Patient Records regulations: The Federal rules restrict any use of the information to criminally investigate or prosecute any alcohol or drug abuse patient.[facility] CenterIn the event this information is protected by the Federal Confidentiality of Alcohol and Drug Abuse Patient Records regulations: The Federal rules restrict any use of the information to criminally investigate or prosecute any alcohol or drug abuse patient.[facility] Center[facility] the event this information is protected by the Federal Confidentiality of Alcohol and Drug Abuse Patient Records regulations: The Federal rules restrict any use of the information to criminally investigate or prosecute any alcohol or drug abuse patient.[facility] CenterIn the event this information is protected by the Federal Confidentiality of Alcohol and Drug Abuse Patient Records regulations: The Federal rules restrict any use of the information to criminally investigate or prosecute any alcohol or drug abuse patient.[facility] Center[facility] the event this information is protected by the Federal Confidentiality of Alcohol and Drug Abuse Patient Records regulations: The Federal rules restrict any use of the information to criminally investigate or prosecute any alcohol or drug abuse patient.[facility] CenterIn the event this information is protected by the Federal Confidentiality of Alcohol and Drug Abuse Patient Records regulations: The Federal rules restrict any use of the information to criminally investigate or prosecute any alcohol or drug abuse patient.[facility] CenterIn the event this information is protected by the Federal Confidentiality of Alcohol and Drug Abuse Patient Records regulations: The Federal rules restrict any use of the information to criminally investigate or prosecute any alcohol or drug abuse patient.[facility] CenterIn the event this information is protected by the Federal Confidentiality of Alcohol and Drug Abuse Patient Records regulations: The Federal rules restrict any use of the information to criminally investigate or prosecute any alcohol or drug abuse patient.[facility] CenterIn the event this information is protected by the Federal Confidentiality of Alcohol and Drug Abuse Patient Records regulations: The Federal rules restrict any use of the information to criminally investigate or prosecute any alcohol or drug abuse patient.[facility] CenterIn the event this information is protected by the Federal Confidentiality of Alcohol and Drug Abuse Patient Records regulations: The Federal rules restrict any use of the information to criminally investigate or prosecute any alcohol or drug abuse patient.[facility] CenterIn the event this information is protected by the Federal Confidentiality of Alcohol and Drug Abuse Patient Records regulations: The Federal rules restrict any use of the information to criminally investigate or prosecute any alcohol or drug abuse patient.[facility] CenterIn the event this information is protected by the Federal Confidentiality of Alcohol and Drug Abuse Patient Records regulations: The Federal rules restrict any use of the information to criminally investigate or prosecute any alcohol or drug abuse patient.[facility] CenterIn the event this information is protected by the Federal Confidentiality of Alcohol and Drug Abuse Patient Records regulations: The Federal rules restrict any use of the information to criminally investigate or prosecute any alcohol or drug abuse patient.[facility] CenterIn the event this information is protected by the Federal Confidentiality of Alcohol and Drug Abuse Patient Records regulations: The Federal rules restrict any use of the information to criminally investigate or prosecute any alcohol or drug abuse patient.[facility] CenterIn the event this information is protected by the Federal Confidentiality of Alcohol and Drug Abuse Patient Records regulations: The Federal rules restrict any use of the information to criminally investigate or prosecute any alcohol or drug abuse patient.[facility] CenterIn the event this information is protected by the Federal Confidentiality of Alcohol and Drug Abuse Patient Records regulations: The Federal rules restrict any use of the information to criminally investigate or prosecute any alcohol or drug abuse patient.[facility] CenterIn the event this information is protected by the Federal Confidentiality of Alcohol and Drug Abuse Patient Records regulations: The Federal rules restrict any use of the information to criminally investigate or prosecute any alcohol or drug abuse patient.[facility] CenterIn the event this information is protected by the Federal Confidentiality of Alcohol and Drug Abuse Patient Records regulations: The Federal rules restrict any use of the information to criminally investigate or prosecute any alcohol or drug abuse patient.[facility] CenterIn the event this information is protected by the Federal Confidentiality of Alcohol and Drug Abuse Patient Records regulations: The Federal rules restrict any use of the information to criminally investigate or prosecute any alcohol or drug abuse patient.[facility] CenterIn the event this information is protected by the Federal Confidentiality of Alcohol and Drug Abuse Patient Records regulations: The Federal rules restrict any use of the information to criminally investigate or prosecute any alcohol or drug abuse patient.[facility] CenterIn the event this information is protected by the Federal Confidentiality of Alcohol and Drug Abuse Patient Records regulations: The Federal rules restrict any use of the information to criminally investigate or prosecute any alcohol or drug abuse patient.[facility] CenterIn the event this information is protected by the Federal Confidentiality of Alcohol and Drug Abuse Patient Records regulations: The Federal rules restrict any use of the information to criminally investigate or prosecute any alcohol or drug abuse patient.[facility] CenterIn the event this information is protected by the Federal Confidentiality of Alcohol and Drug Abuse Patient Records regulations: The Federal rules restrict any use of the information to criminally investigate or prosecute any alcohol or drug abuse patient.[facility] CenterIn the event this information is protected by the Federal Confidentiality of Alcohol and Drug Abuse Patient Records regulations: The Federal rules restrict any use of the information to criminally investigate or prosecute any alcohol or drug abuse patient.[facility] CenterIn the event this information is protected by the Federal Confidentiality of Alcohol and Drug Abuse Patient Records regulations: The Federal rules restrict any use of the information to criminally investigate or prosecute any alcohol or drug abuse patient.[facility] CenterIn the event this information is protected by the Federal Confidentiality of Alcohol and Drug Abuse Patient Records regulations: The Federal rules restrict any use of the information to criminally investigate or prosecute any alcohol or drug abuse patient.[facility] CenterIn the event this information is protected by the Federal Confidentiality of Alcohol and Drug Abuse Patient Records regulations: The Federal rules restrict any use of the information to criminally investigate or prosecute any alcohol or drug abuse patient.[facility] CenterIn the event this information is protected by the Federal Confidentiality of Alcohol and Drug Abuse Patient Records regulations: The Federal rules restrict any use of the information to criminally investigate or prosecute any alcohol or drug abuse patient.[facility] CenterIn the event this information is protected by the Federal Confidentiality of Alcohol and Drug Abuse Patient Records regulations: The Federal rules restrict any use of the information to criminally investigate or prosecute any alcohol or drug abuse patient.[facility] CenterIn the event this information is protected by the Federal Confidentiality of Alcohol and Drug Abuse Patient Records regulations: The Federal rules restrict any use of the information to criminally investigate or prosecute any alcohol or drug abuse patient.[facility] CenterIn the event this information is protected by the Federal Confidentiality of Alcohol and Drug Abuse Patient Records regulations: The Federal rules restrict any use of the information to criminally investigate or prosecute any alcohol or drug abuse patient.[facility] CenterIn the event this information is protected by the Federal Confidentiality of Alcohol and Drug Abuse Patient Records regulations: The Federal rules restrict any use of the information to criminally investigate or prosecute any alcohol or drug abuse patient.[facility] CenterIn the event this information is protected by the Federal Confidentiality of Alcohol and Drug Abuse Patient Records regulations: The Federal rules restrict any use of the information to criminally investigate or prosecute any alcohol or drug abuse patient.[facility] CenterIn the event this information is protected by the Federal Confidentiality of Alcohol and Drug Abuse Patient Records regulations: The Federal rules restrict any use of the information to criminally investigate or prosecute any alcohol or drug abuse patient.[facility] CenterIn the event this information is protected by the Federal Confidentiality of Alcohol and Drug Abuse Patient Records regulations: The Federal rules restrict any use of the information to criminally investigate or prosecute any alcohol or drug abuse patient.[facility] CenterIn the event this information is protected by the Federal Confidentiality of Alcohol and Drug Abuse Patient Records regulations: The Federal rules restrict any use of the information to criminally investigate or prosecute any alcohol or drug abuse patient.[facility] CenterIn the event this information is protected by the Federal Confidentiality of Alcohol and Drug Abuse Patient Records regulations: The Federal rules restrict any use of the information to criminally investigate or prosecute any alcohol or drug abuse patient.[facility] CenterIn the event this information is protected by the Federal Confidentiality of Alcohol and Drug Abuse Patient Records regulations: The Federal rules restrict any use of the information to criminally investigate or prosecute any alcohol or drug abuse patient.[facility] CenterIn the event this information is protected by the Federal Confidentiality of Alcohol and Drug Abuse Patient Records regulations: The Federal rules restrict any use of the information to criminally investigate or prosecute any alcohol or drug abuse patient.[facility] CenterIn the event this information is protected by the Federal Confidentiality of Alcohol and Drug Abuse Patient Records regulations: The Federal rules restrict any use of the information to criminally investigate or prosecute any alcohol or drug abuse patient.[facility] CenterIn the event this information is protected by the Federal Confidentiality of Alcohol and Drug Abuse Patient Records regulations: The Federal rules restrict any use of the information to criminally investigate or prosecute any alcohol or drug abuse patient.[facility] CenterIn the event this information is protected by the Federal Confidentiality of Alcohol and Drug Abuse Patient Records regulations: The Federal rules restrict any use of the information to criminally investigate or prosecute any alcohol or drug abuse patient.[facility] CenterIn the event this information is protected by the Federal Confidentiality of Alcohol and Drug Abuse Patient Records regulations: The Federal rules restrict any use of the information to criminally investigate or prosecute any alcohol or drug abuse patient.[facility] CenterIn the event this information is protected by the Federal Confidentiality of Alcohol and Drug Abuse Patient Records regulations: The Federal rules restrict any use of the information to criminally investigate or prosecute any alcohol or drug abuse patient.[facility] CenterIn the event this information is protected by the Federal Confidentiality of Alcohol and Drug Abuse Patient Records regulations: The Federal rules restrict any use of the information to criminally investigate or prosecute any alcohol or drug abuse patient.[facility] CenterIn the event this information is protected by the Federal Confidentiality of Alcohol and Drug Abuse Patient Records regulations: The Federal rules restrict any use of the information to criminally investigate or prosecute any alcohol or drug abuse patient.[facility] CenterIn the event this information is protected by the Federal Confidentiality of Alcohol and Drug Abuse Patient Records regulations: The Federal rules restrict any use of the information to criminally investigate or prosecute any alcohol or drug abuse patient.[facility] CenterIn the event this information is protected by the Federal Confidentiality of Alcohol and Drug Abuse Patient Records regulations: The Federal rules restrict any use of the information to criminally investigate or prosecute any alcohol or drug abuse patient.[facility] Reason for Visit (unrecogniz ed section and content) Reason Comments Patient Update Reason Comments Cough Congestion, sneezing , diarrhea x last night Reason Comments Appointment Cancelled Reason Comments Establish Care Constipation denies constipation but has rectal pain due to internal hemorrhoids.Has colonoscopy scheduled for 04/2022 Mass in groin and above u mbilicus Memory Loss is seeing neuro 07/31 Nicotine Dependence would like to stop b ut nothing has been effective Reason Comments Orders Reason Comments Rash L shoulder x this AM Reason Comments New Patient Reason Comments Recheck 4 week follow up Results CT scan Question neurology consult Reason Comments Appointment Reason Comments Ear Pain Left ear pain x 2 da ys Reason Comments Recheck Reason Comments Consult Colonoscopy consult Specialty Diagnoses / Procedures Referred By Taz farrar Referred To Contact General Surgery Diagnoses Ventral hernia without obstruction or gangrene Procedures CONSULT TO GENERAL SURGERY OFFICE/OUTPATIENT NEW HIGH MDM 60-74 MINUTES Brian Gibson APRN.CRUISE DIRECTOR [address] [place] [address] Referral ID Status Reason Start Date Expiration Date V isits Requested Visits Authorized [id number] Closed PCP Requested Referral 04/20/2022 04/20/2023 1 1 Reason Comments Results Reason Comments Follow Up UTI, blood in urine, seen at [facility] Reason Comments Ear Pain left x 1 week Reason Comments Recheck Seen in urgent care 07/14/2022 for left ear pain. Treated with Z-Pk which is causing dizziness and work is asking when he will be able to return. Reason Comments Pelvic Pain pelvic pressure x 2 days Reason Comments bowel prep Reason Comments Lab Orders Reason Comments Physical Reason Comments Orders Reason Onset Date Comments colon prep 06/28/2023 Reason Comments Appointment Patient Update Reason Comments Outpatient Colonoscopy Reason Comments Urinary Frequency burning with urinati on x 3 days Reason Comments Follow Up Memory loss, feels a bout the same from visit, struggling with remembering details while at work, had hearing checked and doctor did find impairment bilaterally, has follow up next week Reason Comments Dog Bite Dog bite left side o f abdomen x 1 day Reason Comments Recheck discuss medication a s he is currently not taking anything. elevated blood pressure continues Reason Comments note for child support Reason Comments Request Outside Medical Records Reason Comments Recheck discuss sleep study results Pain bilateral pain that radiates from toes and up to hipsstarts after standing 2 hours or longer Reason Comments Forms Reason Comments Established Patient Reason Comments Urinary Problem pain with urination x 1 day Reason Comments Patient Question Reason Comments Recheck [facility] for UTI and noted a high glucose level in urine with dipAnxiety continues and on CPAP for about 1 month without any change in the anxiety. Is waking up in middle of night and has trouble getting back to sleep Reason Comments Hospital F/U Reason Onset Date Comments Refill Request 01/15/2024 Reason Comments Release Of Medical Records Reason Comments Opened In Error Care Teams (unrecognized sec tion and content) Ccie Relationship Specialty Start Date End Date Romie López MD [address] [place], [place] [id number] PCP - General Family Practice 05/12/17 Ccie Relationship Specialty Start Date End Date Romie López MD [address] [place], [place] [id number] PCP - General Family Medicine 05/12/17 Ccie Relationship Specialty Start Date End Date Patience Mireles [address] [place] [address] PCP - General Family Medicine 12/23/21 Beba Lake NP [address] [place] [address] Referring Family Medicine 12/23/21 Ccie Relationship Specialty Start Date End Date Brian Gibson APRN.CRUISE DIRECTOR [address] [place] [address] PCP - General Internal Medicine 03/03/22 Beba [place] NP [address] [place] [address] Referring Family Medicine 12/23/21 Ccie Relationship Specialty Start Date End Date Brian Gibson APRN.CRUISE DIRECTOR [address] [place] [address] PCP - General Internal Medicine 03/03/22 Beba [place] NP [address] [place] [address] Referring Family Medicine 12/23/21 Team Status: Active Member Role Status Dates Dr. Romie López MD Family Provider Active Brian Gibson LAW EXAMINER, LAW EXAMINER-C Primary Care Provider Active Team Status: Active Member Role Status Dates [facility] Primary Care Provider Dada Espinoza Attending Provider Active Team Status: Active Member Role Status Dates Brian Gibson LAW EXAMINER, LAW EXAMINER-C Primary Care Provider Active Dr. Jas Vergara MD Emergency Provider Active Dr. Maria Mathews MD Attending Provider Active Team Status: Active Member Role Status Dates Brian Gibson LAW EXAMINER, LAW EXAMINER-C Primary Care Provider Active Dr. Jas Vergara MD Emergency Provider Active Dr. Maria Mathews MD Admit Provider, Attending Prov ider Active Team Status: Active Member Role Status Dates Brian Gibson LAW EXAMINER, LAW EXAMINER-C Primary Care Provider Active Dr. Jas Vergara MD Emergency Provider Active Dr. Maria Mathews MD Admit Provider, Other Provider Active Dr. Jodie Canas DO Other Provider Active Dr. Jb Mcbride MD Attending Provider Active Team Status: Inactive Member Role Status Dates Brian Gibson LAW EXAMINER, LAW EXAMINER-C Primary Care Provider Active Dr. Jas Vergara MD Emergency Provider Active Dr. Maria Mathews MD Admit Provider, Other Provider Active Dr. Jodie Canas , DO Attending Provider Active Ccie Relationship Specialty Start Date End Date Brian Gibson APRN.CRUISE DIRECTOR [address] [facility] [place] [address] PCP - General Internal Medicine 03/03/22 Beba [place] NP [address] [facility] [place] [address] Referring Family Medicine 12/23/21 Ccie Relationship Specialty Start Date End Date Brian Gibson TELEHEALTH CASE MANAGER.CRUISE DIRECTOR [address] [facility] [place] [address] PCP - General Internal Medicine 03/03/22 Beba [place] NP [address] [facility] [place] [address] Referring Family Medicine 12/23/21 Ccie Relationship Specialty Start Date End Date Brian Gibson TELEHEALTH CASE MANAGER.CRUISE DIRECTOR [address] [facility] [place] [address] PCP - General Internal Medicine 03/03/22 Beba [place] NP [address] [facility] [place] [address] Referring Family Medicine 12/23/21 Ccie Relationship Specialty Start Date End Date Brian Gibson TELEHEALTH CASE MANAGER.CRUISE DIRECTOR [address] [facility] [place] [address] PCP - General Internal Medicine 03/03/22 Beba [place] NP [address] [facility] [place] [address] Referring Family Medicine 12/23/21 Ccie Relationship Specialty Start Date End Date Brian Gibson APRN.CRUISE DIRECTOR [address] [facility] [place] [address] PCP - General Internal Medicine 03/03/22 Beba [place] NP [address] [facility] [place] [address] Referring Family Medicine 12/23/21 Ccie Relationship Specialty Start Date End Date Brian Gibson APRN.CRUISE DIRECTOR [address] [place] [address] PCP - General Internal Medicine 03/03/22 Beba Lake NP [address] [place] [address] Referring Family Medicine 12/23/21 Ccie Relationship Specialty Start Date End Date Brian Gibson APRN.CRUISE DIRECTOR [address] [place] [address] PCP - General Internal Medicine 03/03/22 04/14/22 Hay Rader MD [address] [place] [address] PCP - General Internal Medicine 04/15/22 Beba [place] NP [address] [place] [address] Referring Family Medicine 12/23/21 04/14/22 Ccie Relationship Specialty Start Date End Date Hay Rader MD [address] [place] [address] PCP - General Internal Medicine 04/15/22 Ccie Relationship Specialty Start Date End Date Hay Rader MD [address] [place] [address] PCP - General Internal Medicine 04/15/22 Ccie Relationship Specialty Start Date End Date Hay Rader MD [address] [place] [address] PCP - General Internal Medicine 04/15/22 Brian Gibson APRN.CRUISE DIRECTOR [address] [place] [address] Internal Medicine 04/28/22 Ccie Relationship Specialty Start Date End Date Hay Rader MD [address] [facility] [place] [address] PCP - General Internal Medicine 04/15/22 Brian Gibson APRN.CRUISE DIRECTOR [address] [place] [address], [place] [address] Internal Medicine 04/28/22 Ccie Relationship Specialty Start Date End Date Hay Rader MD [address] [facility] [place] [address] PCP - General Internal Medicine 04/15/22 Brian Gibson APRN.CRUISE DIRECTOR [address] [place] [address], [place] [address] Internal Medicine 04/28/22 Ccie Relationship Specialty Start Date End Date Hay Rader MD [facility] [place] [address] PCP - General Internal Medicine 04/15/22 Brian Gibson APRN.CRUISE DIRECTOR [address] [place] [address], [place] [address] Internal Medicine 04/28/22 Ccie Relationship Specialty Start Date End Date Hay Rader MD [facility] [place] [address] PCP - General Internal Medicine 04/15/22 Brian Gibson APRN.CRUISE DIRECTOR [address] [place] [address], [place] [address] Internal Medicine 04/28/22 Ccie Relationship Specialty Start Date End Date Brian Gibson APRN.CRUISE DIRECTOR [address] [place] [address], [place] [address] PCP - General Internal Medicine 10/20/22 Ccie Relationship Specialty Start Date End Date Brian Gibson APRN.CRUISE DIRECTOR [address] [place] [address] PCP - General Internal Medicine 10/20/22 Ccie Relationship Specialty Start Date End Date Brian Gibson APRN.CRUISE DIRECTOR [address] [place] [address] PCP - General Internal Medicine 10/20/22 Ccie Relationship Specialty Start Date End Date Brian Gibson APRN.CRUISE DIRECTOR [address] [place] [address] PCP - General Internal Medicine 10/20/22 Ccie Relationship Specialty Start Date End Date Brian Gibson APRN.CRUISE DIRECTOR [address] [place] [address] PCP - General Internal Medicine 10/20/22 Ccie Relationship Specialty Start Date End Date Brian Gibson APRN.CRUISE DIRECTOR [address] [place] [address] PCP - General Internal Medicine 10/20/22 Ccie Relationship Specialty Start Date End Date Brian Gibson APRN.CRUISE DIRECTOR [address] [place] [address] PCP - General Internal Medicine 10/20/22 Ccie Relationship Specialty Start Date End Date Brian Gibson APRN.CRUISE DIRECTOR [address] [place] [address] PCP - General Internal Medicine 10/20/22 Ccie Relationship Specialty Start Date End Date Brian Gibson APRN.CRUISE DIRECTOR [address] [place] [address] PCP - General Internal Medicine 10/20/22 Ccie Relationship Specialty Start Date End Date Brian Gibson APRN.CRUISE DIRECTOR [address] [place] [address] PCP - General Internal Medicine 10/20/22 Ccie Relationship Specialty Start Date End Date Brian Gibson APRN.CRUISE DIRECTOR [address] [place] [address] PCP - General Internal Medicine 10/20/22 Ccie Relationship Specialty Start Date End Date Brian Gibson APRN.CRUISE DIRECTOR [address] [place] [address] PCP - General Internal Medicine 10/20/22 Ccie Relationship Specialty Start Date End Date Romie López MD [address] [place] [address] PCP - General Family Medicine 05/12/17 12/22/21 Ccie Relationship Specialty Start Date End Date Brian Gibson APRN.CRUISE DIRECTOR [address] [place] [address] PCP - General Internal Medicine 10/20/22 Ccie Relationship Specialty Start Date End Date Brian Gibson APRN.CRUISE DIRECTOR [address] [place] [address] PCP - General Internal Medicine 10/20/22 Ccie Relationship Specialty Start Date End Date Brian Gibson APRN.CRUISE DIRECTOR [address] [place] [address] PCP - General Internal Medicine 10/20/22 Ccie Relationship Specialty Start Date End Date Brian Gibson APRN.CRUISE DIRECTOR [address] [place] [address] PCP - General Internal Medicine 10/20/22 Ccie Relationship Specialty Start Date End Date Brian Gibson APRN.CRUISE DIRECTOR [address] [place] [address] PCP - General Internal Medicine 10/20/22 Ccie Relationship Specialty Start Date End Date Brian Gibson TELEHEALTH CASE MANAGER.CRUISE DIRECTOR [address] [place] [address] PCP - General Internal Medicine 10/20/22 Ccie Relationship Specialty Start Date End Date Brian Gibson TELEHEALTH CASE MANAGER.CRUISE DIRECTOR [address] [place] [address] PCP - General Internal Medicine 10/20/22 Ccie Relationship Specialty Start Date End Date Brian Gibson TELEHEALTH CASE MANAGER.CRUISE DIRECTOR [address] [place] [address] PCP - General Internal Medicine 10/20/22 Ccie Relationship Specialty Start Date End Date Brian Gibson TELEHEALTH CASE MANAGER.CRUISE DIRECTOR [address] [place] [address] PCP - General Internal Medicine 10/20/22 Team Status: Active Member Role Status Dates Brian Gibson LAW EXAMINER, LAW EXAMINER-C Primary Care Provider Active Team Status: Inactive Member Role Status Dates Brian Gibson LAW EXAMINER, LAW EXAMINER-C Primary Care Provider Active Start: June 21, 2024 End: June 21, 2024 Dr. Brayden rCuz , DO Emergency Provider Active Start: June 21, 2024 End: June 21, 2024 Team Status: Active Member Role/Relationship Status Dates Brian Gibson LAW EXAMINER, LAW EXAMINER-C Primary Care Provider Active Team Status: Inactive Member Role/Relationship Status Dates Brian Paige LAW EXAMINER, LAW EXAMINER-C Primary Care Provider Active Start: June 21, 2024 End: June 21, 2024 Dr. Brayden Cruz DO Attending Provider Active Start: June 21, 2024 End: June 21, 2024 Dr. Brayden Cruz DO Emergency Provider Active Start: June 21, 2024 End: June 21, 2024 Team Status: Inactive Member Role/Relationship Status Dates Brian Paige LAW EXAMINER, LAW EXAMINER-C Primary Care Provider Active Start: August 21, 2024 End: August 21, 2024 Brian Paige LAW EXAMINER, LAW EXAMINER-C Referring Provider Active Start: August 21, 2024 End: August 21, 2024 Harsha Dawson PA, PA Attending Provider Active Start: August 21, 2024 End: August 21, 2024 Team Status: Inactive Member Role/Relationship Status Dates Brian Paige LAW EXAMINER, LAW EXAMINER-C Primary Care Provider Active Start: October 19, 2024 End: October 19, 2024 Brian Paige LAW EXAMINER, LAW EXAMINER-C Referring Provider Active Start: October 19, 2024 End: October 19, 2024 Brando DAVENPORT, PA Attending Provider Active Sta rt: October 19, 2024 End: October 19, 2024 Team Status: Inactive Member Role/Relationship Status Dates Brian Paige LAW EXAMINER, LAW EXAMINER-C Primary Care Provider Active Start: August 21, 2024 End: August 21, 2024 Brian Paige LAW EXAMINER, LAW EXAMINER-C Referring Provider Active Start: August 21, 2024 End: August 21, 2024 Harsha Dawson PA, PA Attending Provider Active Start: August 21, 2024 End: August 21, 2024 Team Status: Inactive Member Role/Relationship Status Dates Brian Paige LAW EXAMINER, LAW EXAMINER-C Primary Care Provider Active Start: October 19, 2024 End: October 19, 2024 Brian Paige LAW EXAMINER, LAW EXAMINER-C Referring Provider Active Start: October 19, 2024 End: October 19, 2024 Brando DAVENPORT PA Attending Provider Active Sta rt: October 19, 2024 End: October 19, 2024 Team Status: Inactive Member Role/Relationship Status Dates Brian Paige LAW EXAMINER, LAW EXAMINER-C Primary Care Provider Active Start: October 24, 2024 End: October 24, 2024 Brian Paige LAW EXAMINER, LAW EXAMINER-C Referring Provider Active Start: October 24, 2024 End: October 24, 2024 Harsha DAVENPORT, PA Attending Provider Active Start: October 24, 2024 End: October 24, 2024 Goals (unrecognized section and content) Goals may be documented in a n alternate sectionGoals may be documented in an alternate sectionGoals may be documented in an alternate section No data available for this section No data available for this section No data available for this section No data available for this sectionGoals may be documented in an alternate sectionGoals may be documented in an alternate sectionGoals may be documented in an alternate sectionGoals may be documented in an alternate section (unrecognized sect ion and content) No Status Records FoundNo Status Records FoundNo Status Records FoundNo Status Records FoundNo Status Records Found INFORMATION SOURCE (unrecogn ized section and content) DATE CREATED AUTHOR 07/22/2023 [facility] DATE CREATED AUTHOR AUTHOR'S ORGANIZ ATION 11/01/2023 [facility] DATE CREATED AUTHOR AUTHOR'S ORGANIZ ATION 12/31/2023 [facility] DATE CREATED AUTHOR AUTHOR'S ORGANIZ ATION 01/28/2024 [facility] DATE CREATED AUTHOR AUTHOR'S ORGANIZ ATION 10/27/2024 [facility] FOR RECORDS PERTAINING TO PATIENTS WHO ARE OR HAVE BEEN ENROLLED IN A CHEMICAL DEPENDENCY/SUBSTANCEABUSE PROGRAM, SOME INFORMATION MAY BE OMITTED. This clinical summary was aggregated from multiple sources. Caution should be exercised in using it in the provision of clinical care. This summary normalizes information from multiple sources, and as a consequence, information in this document may materially change the coding, format and clinical context of patient data. In addition, data may be omitted in some cases. CLINICAL DECISIONS SHOULD BE BASED ON THE PRIMARY CLINICAL RECORDS. [facility]. provides no warranty or guarantee of the accuracy or completeness of information in this document.
== END | disposition home or self-care (01) ==
PROVIDERS: PCP Internal Medicine; Referring Provider Internal Medicine; Visit Provider Internal Medicine
DX: R33.9 Retention of urine, unspecified (principal)
CPT/HCPCS: 51798

== ENCOUNTER → 2024-11-18 | Outpatient (CLI) | payer MEDICAID, SELFPAY ==
[2024-11-18 10:47] LABS: Hematocrit 53.0 % (40-54); Hemoglobin 17.8 g/dL (13.0-16.5); Immature Granulocytes Count 0.050 X10^3/uL (0.0-0.0); Mean Corp Hgb Conc 33.6 g/dL (32-36); Mean Corpuscular Volume 89.8 fL (80-94); Mean Platelet Vol. 10.1 fl (6.2-12.0); NRBC Flagged by Analyzer 0 % (0-5); Platelet Count 328 K/mm3 (150-450); RBC Distribution Width CV 13.8 % (11.6-14.6); RBC Distribution Width SD 45.8 fl (35.1-43.9); Red Blood Count 5.90 M/mm3 (4.6-6.2); White Blood Count 9.6 K/mm3 (4.4-11.0)
[2024-11-18 12:10] LABS: AST(SGOT) 24 U/L (<=37); Alanine Aminotransfer ALT/SGPT 29 U/L (<=46); Albumin, Serum 4.3 g/dL (3.5-5.0); Alkaline Phosphatase 86 U/L (40-129); Anion Gap 12 (5-15); BUN 14 mg/dL (4-19); BUN/Creat Ratio 14.6 RATIO (10-20); Calcium,Total 9.2 mg/dL (7.6-11.0); Carbon Dioxide 22.1 mmol/L (21.0-32.0); Chloride 104 mmol/L (98-108); Cholesterol 248 mg/dL (<=200); Globulin 3.0 g/dL (2.2-4.2); Glucose 144 mg/dL (70-99); Low Density Lipoprotein Calc. 156 mg/dL; PSA,Total- Diagnostic 1.03 ng/mL (0.00-4.00); Potassium 4.1 mmol/L (3.3-5.1); Triglycerides 151 mg/dL; Very Low Density Lipoprotein 30 mg/dL (5-40); cholesterol:hdl ratio screen 4.00
== END | disposition home or self-care (01) ==
LOC: LAB 08:52
PROVIDERS: PCP Internal Medicine; Referring Provider Internal Medicine; Visit Provider Internal Medicine
DX: I10 Essential (primary) hypertension (principal); R73.03 Prediabetes; R35.0 Frequency of micturition
CPT/HCPCS: 36415; 80053; 80061; 83036; 84153; 85025

== ENCOUNTER → 2024-11-22 | Outpatient (CLI) | payer MEDICAID, SELFPAY ==
--- NOTE | 2024-11-22 07:58 | AAAS_ITS ---
Reason For Study Reason For Study: Screening Aorta Measurements Aorta Doppler Measurements Proximal aorta measures1.49x1.50cm. in cross-sectional axis.Peak systolic flow velocities within the proximal aorta Proximal aorta measures1.47cm. in longitudinal axis. measure 96.3 cm/sec. Mid aorta measures1.69x1.69cm. in cross-sectional axis. Peak systolic flow velocities within the mid aorta measure Mid aorta measures1.71cm. in longitudinal axis. 88.6 cm/sec. Distal aorta measures1.37x1.38cm. in cross-sectional axis. Peak systolic flow velocities within the distal aorta Distal aorta measures1.42cm. in longitudinal axis. measure 103.0 cm/sec. Left Iliac Artery Left iliac artery measures 1.07x1.02 cm. in the cross-sectional axis. Left iliac artery measures 1.00 cm. in the longitudinal axis. Peak systolic velocity in the left iliac artery measures 168.2 cm/sec. Right Iliac Artery Right iliac artery measures 0.94x0.96 cm. in the cross-sectional axis. Right iliac artery measures 0.87 cm. in the longitudinal axis. Peak systolic velocity in the right iliac artery measures 152.6 cm/sec. Procedure Aorta IVC Iliac vasculature or bypass grafts [id number]. Exam performed in department. VL/AAA Screening Interpretation Summary Aorta patent, normal caliber Bilateral iliac arteries patent, normal caliber Ordering Physician: Claudia Mayo Referring Physician: Claudia Mayo Performed By: Elinor Fraser, RVT
== END | disposition home or self-care (01) ==
LOC: CVS 07:54
PROVIDERS: PCP Internal Medicine; Referring Provider Internal Medicine; Visit Provider Internal Medicine
DX: Z13.6 Encounter for screening for cardiovascular disorders (principal)
CPT/HCPCS: 76706